=== PATIENT | female | born 1935 | race African-American/Black ===

== ENCOUNTER 2019-06-18 23:33 | Emergency (ER) | payer MEDICARE ==
[~2019-06-18] VITALS: Ht 157.5 cm; Wt 81.6 kg
--- NOTE | 2019-06-19 00:01 | PHYS DOC ---
Past Medical History Past Medical History: Diabetes-Type II, Hypertension, Renal Disease Past Surgical History: Hysterectomy Alcohol Use: None Drug Use: None Adult General Chief Complaint Chief Complaint: HYPERTENSION HPI HPI 83-year-old female presents to the emergency department with complaints of not feeling well. She has no specific complaints. Blood pressure was elevated 214/86. EMS was called for evaluation. Patient's daughter brought her to the emergency room for further evaluation. She has had sick contacts with her granddaughter recently. She denies any chest pain, shortness breath, abdominal pain, nausea, vomiting, diarrhea, fever, myalgias. She is blood pressure here is 217/86. Patient states she's not taken her home medications. Nothing makes her symptoms worse, nothing makes her symptoms better. Patient has known history of hemodialysis Friday, hypertension, diabetes. Review of Systems Review of Systems Constitutional: Denies fever or chills [] Eyes: Denies change in visual acuity, redness, or eye pain [] HENT: Denies nasal congestion or sore throat [] Respiratory: Denies cough or shortness of breath [] Cardiovascular: No additional information not addressed in HPI [] GI: Denies abdominal pain, nausea, vomiting, bloody stools or diarrhea [] : Denies dysuria or hematuria [] Musculoskeletal: Denies back pain or joint pain [] Integument: Denies rash or skin lesions [] Neurologic: Denies headache, focal weakness or sensory changes [] All other systems were reviewed and found to be within normal limits, except as documented in this note. Current Medications Current Medications Current Medications Medications (Trade) Dose Ordered Sig/Diana Start Time Stop Time Status Last Admin Dose Admin Clonidine HCl (Catapres) 0.1 mg 1X ONCE 06/19/19 00:30 06/19/19 00:32 DC 06/19/19 00:22 0.1 MG Allergies Allergies Allergies Coded Allergies Type Severity Reaction Last Updated Verified Sulfa (Sulfonamide Antibiotics) Allergy Severe "Ashkan Ubaldo's disease" 08/13/15 Yes Physical Exam Physical Exam Constitutional: Well developed, well nourished, no acute distress, non-toxic appearance. [] HENT: Normocephalic, atraumatic, bilateral external ears normal, oropharynx moist, no oral exudates, nose normal. [] Eyes: PERRLA, EOMI, conjunctiva normal, no discharge. [] Neck: Normal range of motion, no tenderness, supple, no stridor. [] Cardiovascular:Heart rate regular rhythm, no murmur [] Lungs & Thorax: Bilateral breath sounds clear to auscultation [] Abdomen: Bowel sounds normal, soft, no tenderness, no masses, no pulsatile masses. [] Skin: Warm, dry, no erythema, no rash. [] Back: No tenderness, no CVA tenderness. [] Extremities: No tenderness, no edema. [] Neurologic: Alert and oriented X 3, no focal deficits noted. [] Psychologic: Affect normal, judgement normal, mood normal. [] Current Patient Data Vital Signs Vital Signs Date Time Temp Pulse Resp B/P (MAP) Pulse Ox O2 Delivery O2 Flow Rate FiO2 06/19/19 00:22 217/86 Lab Values Laboratory Tests Test 06/19/19 00:07 Glucose (Fingerstick) 98 mg/dL (70-99) EKG EKG [] Radiology/Procedures Radiology/Procedures [] Course & Med Decision Making Course & Med Decision Making Pertinent Labs and Imaging studies reviewed. (See chart for details) []83-year-old female presents to the emergency department with complaints of not feeling well. She has no specific complaints. Blood pressure was elevated 214/86. EMS was called for evaluation. Patient's daughter brought her to the emergency room for further evaluation. She has had sick contacts with her granddaughter recently. She denies any chest pain, shortness breath, abdominal pain, nausea, vomiting, diarrhea, fever, myalgias. She has a blood pressure here is 217/86. Patient states she's not taken her home medications. Nothing makes her symptoms worse, nothing makes her symptoms better. Patient has known history of hemodialysis Friday, hypertension, diabetes. Patient declining labs, declining monitor. Clonidine 0.1 mg by mouth 1. BP recheck 164/74 Pennyon Disclaimer Dragon Disclaimer This electronic medical record was generated, in whole or in part, using a voice recognition dictation system. Departure Departure Impression: Primary Impression: Hypertension Additional Impressions: ESRD (end stage renal disease) Diabetes Disposition: HOME, SELF-CARE Condition: STABLE Referrals: SELMA PADILLA MD (PCP) Patient Instructions: Hypertension Additional Instructions: Recommend follow up with PCP 3 - 5 days Return to the ER with worsening symptoms, intractable pain, fever, altered mental status Tylenol/Motrin as needed for pain Problem Qualifiers Primary Impression: Hypertension Hypertension type: essential hypertension Qualified Codes: I10 - Essential (primary) hypertension Additional Impressions: Diabetes Diabetes mellitus type: type 2 Diabetes mellitus complication detail: with chronic kidney disease Chronic kidney disease stage: unspecified stage KAMLESH HUSTON MD Jun 19, 2019 00:01
[2019-06-19] MEDS ORDERED: cloNIDine HCL 0.1 MG TABLET PO ONE (00:30)
[2019-06-19 00:45] VITALS: BP 164/72
== END 2019-06-19 00:55 | disposition home or self-care (01) ==
LOC: ER 23:33
DX: I12.0 Hypertensive chronic kidney disease with stage 5 chronic kidney disease or end stage renal disease (principal); E11.22 Type 2 diabetes mellitus with diabetic chronic kidney disease; N18.6 End stage renal disease; Z99.2 Dependence on renal dialysis; Z90.710 Acquired absence of both cervix and uterus; Z88.2 Allergy status to sulfonamides
CPT/HCPCS: 82962; 99283

== ENCOUNTER 2019-07-04 16:55 | Emergency (ER) | payer MEDICARE ==
[~2019-07-04] VITALS: Ht 165.1 cm; Wt 81.6 kg
--- NOTE | 2019-07-04 17:35 | PHYS DOC ---
Past Medical History Past Medical History: Diabetes-Type II, Hypertension, Renal Disease (YESI PADILLA APRN) Past Surgical History: Hysterectomy, Other Additional Past Surgical Histo: RIGHT MASTECTOMY, LEFT DIALYSIS FISTULA (YESI PADILLA APRN) Alcohol Use: None Drug Use: None (YESI PADILLA APRN) Adult General Chief Complaint Chief Complaint: CHEST PAIN HPI HPI Patient is a 83 year old [f female] who presents with [chest pain. Patient reports approximately 2 hours ago she had started have some chest discomfort. States she had finished dialysis, and while there she started to feel a bit discomfort, but doesn't think to her family. Family states patient has had similar episodes to this in the past, usually right after dialysis. Patient reports her pain just feels uncomfortable, denies nausea, vomiting. Does report her PCP recently took her off Metformin because her blood sugars have been good. Reports she stopped metformin 5 days ago] (YESI PADILLA APRN) Review of Systems Review of Systems Constitutional: Denies fever or chills [] Eyes: Denies change in visual acuity, redness, or eye pain [] HENT: Denies nasal congestion or sore throat [] Respiratory: Denies cough or shortness of breath [] Cardiovascular: No additional information not addressed in HPI [] GI: Denies abdominal pain, nausea, vomiting, bloody stools or diarrhea [] : Denies dysuria or hematuria [] Musculoskeletal: Denies back pain or joint pain [] Integument: Denies rash or skin lesions [] Neurologic: Denies headache, focal weakness or sensory changes [] Endocrine: Denies polyuria or polydipsia [] All other systems were reviewed and found to be within normal limits, except as documented in this note. (YESI PADILLA APRN) Allergies Allergies Allergies Coded Allergies Type Severity Reaction Last Updated Verified Sulfa (Sulfonamide Antibiotics) Allergy Severe "Ashkan Ubaldo's disease" 08/13/15 Yes (STEPHANIE DOUGLAS MD) Physical Exam Physical Exam Constitutional: Well developed, well nourished, no acute distress, non-toxic appearance. [] HENT: Normocephalic, atraumatic, bilateral external ears normal, oropharynx moist, no oral exudates, nose normal. [] Eyes: PERRLA, EOMI, conjunctiva normal, no discharge. [] Neck: Normal range of motion, no tenderness, supple, no stridor. [] Cardiovascular:Heart rate regular rhythm, no murmur. Palpation of sternum with tendneress, no deformity, no bruising noted [] Lungs & Thorax: Bilateral breath sounds clear to auscultation [] Abdomen: Bowel sounds normal, soft, no tenderness, no masses, no pulsatile masses. [] Skin: Warm, dry, no erythema, no rash. [] Back: No tenderness, no CVA tenderness. [] Extremities: No tenderness, no cyanosis, no clubbing, ROM intact, no edema. dialysis shunt to left arm[] Neurologic: Alert and oriented X 3, normal motor function, normal sensory function, no focal deficits noted. [] Psychologic: Affect normal, judgement normal, mood normal. [] (YESI PADILLA APRN) Current Patient Data Vital Signs Vital Signs Date Time Temp Pulse Resp B/P (MAP) Pulse Ox O2 Delivery O2 Flow Rate FiO2 07/04/19 19:43 60 163/97 (119) 96 Room Air 07/04/19 17:00 98.2 14 98.2 (STEPHANIE DOUGLAS MD) Lab Values Laboratory Tests Test 07/04/19 18:35 Sodium Level 141 mmol/L (136-145) Potassium Level 4.6 mmol/L (3.5-5.1) Chloride Level 103 mmol/L (98-107) Carbon Dioxide Level 29 mmol/L (21-32) Anion Gap 9 (6-14) Blood Urea Nitrogen 18 mg/dL (7-20) Creatinine 3.1 mg/dL (0.6-1.0) H Estimated GFR (Cockcroft-Gault) 17.4 BUN/Creatinine Ratio 6 (6-20) Glucose Level 191 mg/dL (70-99) H Lactic Acid Level 1.5 mmol/L (0.4-2.0) Calcium Level 8.3 mg/dL (8.5-10.1) L Total Bilirubin 0.4 mg/dL (0.2-1.0) Aspartate Amino Transferase (AST) 16 U/L (15-37) Alanine Aminotransferase (ALT) 13 U/L (14-59) L Alkaline Phosphatase 74 U/L (46-116) Troponin I Quantitative < 0.017 ng/mL (0.000-0.055) Total Protein 6.2 g/dL (6.4-8.2) L Albumin 3.1 g/dL (3.4-5.0) L Albumin/Globulin Ratio 1.0 (1.0-1.7) Lipase 100 U/L (73-393) Laboratory Tests 07/04/19 18:35 (STEPHANIE DOUGLAS MD) Lab Values Laboratory Tests Test 07/04/19 18:35 Sodium Level 141 mmol/L (136-145) Potassium Level 4.6 mmol/L (3.5-5.1) Chloride Level 103 mmol/L (98-107) Carbon Dioxide Level 29 mmol/L (21-32) Anion Gap 9 (6-14) Blood Urea Nitrogen 18 mg/dL (7-20) Creatinine 3.1 mg/dL (0.6-1.0) H Estimated GFR (Cockcroft-Gault) 17.4 BUN/Creatinine Ratio 6 (6-20) Glucose Level 191 mg/dL (70-99) H Lactic Acid Level 1.5 mmol/L (0.4-2.0) Calcium Level 8.3 mg/dL (8.5-10.1) L Total Bilirubin 0.4 mg/dL (0.2-1.0) Aspartate Amino Transferase (AST) 16 U/L (15-37) Alanine Aminotransferase (ALT) 13 U/L (14-59) L Alkaline Phosphatase 74 U/L (46-116) Troponin I Quantitative < 0.017 ng/mL (0.000-0.055) Total Protein 6.2 g/dL (6.4-8.2) L Albumin 3.1 g/dL (3.4-5.0) L Albumin/Globulin Ratio 1.0 (1.0-1.7) Lipase 100 U/L (73-393) Laboratory Tests 07/04/19 18:35 (YESI PADILLA APRN) EKG EKG No STEMI per Dr Collier. Left axis deviation. [] (YESI PADILLA APRN) Radiology/Procedures Radiology/Procedures [] FINDINGS: A frontal view of the chest obtained. There is mild diffuse increased interstitial opacity. There is no consolidation, pleural effusion or pneumothorax. There is a prominent cardiac silhouette. IMPRESSION: Findings suggesting trace congestion. There is no consolidated infiltrate. Electronically signed by: Talita Ann MD (07/04/2019 6:24 PM) [facility] (YESI PADILLA APRN) Course & Med Decision Making Course & Med Decision Making Pertinent Labs and Imaging studies reviewed. (See chart for details) []Discussed findings with patient and family member Patient had been stuck numerous times for CBC, with hemolyzed samples. Discussed with family obtaining sample, patient states she does not want any more blood draws. Discussed pink conjunctiva and no pallor or fever in patient, little concern for elevated WBC given normal Lactic and afebrile, and decreased concern for anemia given skin color. Discussed follow up with Dr Luna for continued blood sugar management and to recheck complaints Daughter reports patient has had this exact situation several times, every time is when dialysis date gets changed as it did this week. Reports they adjust dialysis date for holiday. Patient and family in agreement with plan for discharge and follow up with Dr Luna this week.. (YESI PADILLA APRN) Course & Med Decision Making Staff Physician Addendum: I was working in the ER during the course of this patient's visit. I was available for consultation as needed, but I was not directly involved in the care of this patient. (STEPHANIE DOUGLAS MD) Dragon Disclaimer Dragon Disclaimer This electronic medical record was generated, in whole or in part, using a voice recognition dictation system. (YESI PADILLA APRN) Departure Departure Impression: Primary Impression: Chest wall pain Disposition: HOME, SELF-CARE Condition: STABLE Referrals: DELTA LUNA MD (PCP) Patient Instructions: Chest Wall Pain Additional Instructions: As discussed follow-up with Dr. Luna this week if she continues to have concerns. He may try some Tums for her discomfort when you get home. Or may give her Tylenol as he normally would. Her blood sugar today was 191. Discuss with if she wants to consider returning patient on diabetes medications, or if she is not concerned over this reading as it is non-fasting. Continue her dialysis schedule this week. YESI PADILLA APRN Jul 04, 2019 17:35 STEPHANIE DOUGLAS MD Jul 05, 2019 03:47
--- NOTE | 2019-07-04 18:27 | RAD ---
EXAM: Chest, single view. HISTORY: Chest pain. COMPARISON: None. FINDINGS: A frontal view of the chest obtained. There is mild diffuse increased interstitial opacity. There is no consolidation, pleural effusion or pneumothorax. There is a prominent cardiac silhouette. IMPRESSION: Findings suggesting trace congestion. There is no consolidated infiltrate. Electronically signed by: Talita Ann MD (07/04/2019 6:24 PM) [facility]
[2019-07-04 18:54] LABS: CALCIUM 8.3 mg/dL (8.5-10.1); CREATININE 3.1 mg/dL (0.6-1.0); GFR 17.4; POTASSIUM 4.6 mmol/L (3.5-5.1)
[2019-07-04 19:04] LABS: ALBUMIN 3.1 g/dL (3.4-5.0); TOTAL BILIRUBIN 0.4 mg/dL (0.2-1.0); TOTAL PROTEIN 6.2 g/dL (6.4-8.2)
[2019-07-04 19:43] VITALS: BP 163/97
--- NOTE | 2019-07-05 07:31 | EKG ---
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
== END 2019-07-04 20:10 | disposition home or self-care (01) ==
LOC: ER 16:55
DX: R07.89 Other chest pain (principal); N28.9 Disorder of kidney and ureter, unspecified; E11.9 Type 2 diabetes mellitus without complications; I10 Essential (primary) hypertension; Z88.2 Allergy status to sulfonamides
CPT/HCPCS: 36415; 71045; 80053; 83605; 83690; 84484; 93005; 99285

== ENCOUNTER 2019-08-05 10:10 | Outpatient (CLI) | payer MEDICARE ==
[2019-08-05] VITALS (10 sets, daily range): BP systolic 162–199; BP diastolic 66–88
[~2019-08-05] VITALS: Ht 162.6 cm; Wt 72.6 kg
[~2019-08-05 10:10] MED LIST: HYDR-2868 PO; LOSA-73 PO
[2019-08-05] MEDS ORDERED: LIDOCAINE WITH 8.4% SOD BICARB 3 ML DISP.SYRIN. ONE (10:58)
[2019-08-05] MEDS ORDERED: IOHEXOL 240 MG/ML 100 ML VIAL. ONE (10:58)
[2019-08-05] MEDS ORDERED: fentaNYL PF VIAL 100 MCG/2 ML VIAL ONE (11:19)
[2019-08-05] MEDS ORDERED: MIDAZOLAM HCL/PF 2 MG/2 ML VIAL. ONE (11:19)
[2019-08-05] MEDS ORDERED: HEPARIN for IV BOLUS 10,000 UNIT/10 ML VIAL. ONE (11:19)
[2019-08-05] MEDS ORDERED: LIDOCAINE WITH 8.4% SOD BICARB 3 ML DISP.SYRIN. IJ ONE (11:30)
[2019-08-05] MEDS ORDERED: fentaNYL PF VIAL 100 MCG/2 ML VIAL IV ONE (11:30)
[2019-08-05] MEDS ORDERED: ALTEPLASE 2 MG VIAL INT CAT ONE (11:30)
[2019-08-05] MEDS ORDERED: IOHEXOL 240 MG/ML 100 ML VIAL. IV ONE (11:30)
[2019-08-05] MEDS ORDERED: MIDAZOLAM HCL/PF 2 MG/2 ML VIAL. IV ONE (11:30)
[2019-08-05] MEDS ORDERED: HEPARIN for IV BOLUS 10,000 UNIT/10 ML VIAL. IV ONE (12:00)
--- NOTE | 2019-08-05 12:18 | PDOC ---
MODERATE SEDATION ASSESSMENT RISKS/ALTERNATIVES Risks/Alternatives Risks and alternatives of this type of sedation and procedure discussed with: RISK/ALTERNATIVES: Patient H & P ON CHART H & P H & P on chart and reviewed for co-morbid conditions and appropriate labs. H&P ON CHART: Yes STATUS PREG STATUS ASSESSED: Yes MEDS/ALLERGIES REVIEWED Meds/Allergies Reviewed Medications and Allergies including time and route of recently administered narcotics and sedatives. MEDS/ALLERGIES REVIEWED: Yes ASA RATING ASA RATING: II AIRWAY ASSESSMENT Airway Assessment Airway patency, oral function limitations, presence of caps, crowns, dentures, partials, and ability to extend neck assessed. AIRWAY ASSESSMENT: Yes MALLAMPATI SCORE MALLAMPATI SCORE: II PRE-SEDATION ASSESSMENT PRE-SEDATION ASSESSMENT: Yes YESI GAONA MD Aug 05, 2019 12:18
--- NOTE | 2019-08-05 12:20 | PDOC ---
BRIEF OPERATIVE NOTE Pre-Op Diagnosis CRF Post-Op Diagnosis same Procedure Performed left arm av shunt declot and angioplasty Surgeon Pritesh Anesthesia Type: Conscious Sedation Findings Thrombosed graft, venous outflow stenosis improved s/p thrombolysis and angioplasty Complications No immediate YESI GAONA MD Aug 05, 2019 12:20
--- NOTE | 2019-08-05 12:21 | PDOC1 ---
History and Physical Date of Procedure Date of Admission History of Present Illness Reason for Visit clotted shunt Past Medical History Past Medical History see nursing pre-op assessment Current Medications Current Medications Current Medications Iohexol (Omnipaque 240 Mg/ml) 100 ml STK-MED ONCE .ROUTE ; Start 08/05/19 at 10:58; Stop 08/05/19 at 10:58; Status DC Lidocaine HCl (Buffered Lidocaine 1%) 3 ml STK-MED ONCE .ROUTE ; Start 08/05/19 at 10:58; Stop 08/05/19 at 10:58; Status DC Heparin Sodium/ Sodium Chloride 500 ml @ As Directed STK-MED ONCE .ROUTE ; Start 08/05/19 at 10:58; Stop 08/05/19 at 10:59; Status DC Midazolam HCl (Versed) 2 mg STK-MED ONCE .ROUTE ; Start 08/05/19 at 11:19; Stop 08/05/19 at 11:19; Status DC Fentanyl Citrate (Fentanyl 2ml Vial) 100 mcg STK-MED ONCE .ROUTE ; Start 08/05/19 at 11:19; Stop 08/05/19 at 11:19; Status DC Heparin Sodium (Porcine) (Heparin Sodium) 10,000 unit STK-MED ONCE .ROUTE ; Start 08/05/19 at 11:19; Stop 08/05/19 at 11:19; Status DC Alteplase, Recombinant (Cathflo) 6 mg 1X ONCE INT CAT Last administered on 08/05/19at 12:08; Start 08/05/19 at 11:30; Stop 08/05/19 at 11:31; Status DC Heparin Sodium/ Sodium Chloride (HEPARIN for ARTERIAL LINE FLUSH) 1,000 unit 1X ONCE IART Last administered on 08/05/19at 12:07; Start 08/05/19 at 11:30; Stop 08/05/19 at 11:31; Status DC Lidocaine HCl (Buffered Lidocaine 1%) 3 ml 1X ONCE IJ Last administered on 08/05/19at 12:08; Start 08/05/19 at 11:30; Stop 08/05/19 at 11:31; Status DC Midazolam HCl (Versed) 2 mg 1X ONCE IV Last administered on 08/05/19at 12:08; Start 08/05/19 at 11:30; Stop 08/05/19 at 11:31; Status DC Fentanyl Citrate (Fentanyl 2ml Vial) 100 mcg 1X ONCE IV Last administered on 08/05/19at 12:09; Start 08/05/19 at 11:30; Stop 08/05/19 at 11:31; Status DC Iohexol (Omnipaque 240 Mg/ml) 100 ml 1X ONCE IV Last administered on 08/05/19at 12:15; Start 08/05/19 at 11:30; Stop 08/05/19 at 11:31; Status DC Heparin Sodium (Porcine) (Heparin Sodium) 5,000 unit 1X ONCE IV Last administered on 08/05/19at 12:09; Start 08/05/19 at 12:00; Stop 08/05/19 at 12:01; Status DC Active Scripts Active Reported Losartan Potassium 50 Mg Tablet 25 Mg PO BID Hydralazine Hcl 25 Mg Tablet 1 Tab PO BID Allergies Allergies: Coded Allergies: Sulfa (Sulfonamide Antibiotics) (Verified Allergy, Severe, "Ashkan Ubaldo's disease", 08/13/15) Physical Exam Vital Signs Vital Signs Date Time Temp Pulse Resp B/P (MAP) Pulse Ox O2 Delivery O2 Flow Rate FiO2 08/05/19 12:09 14 99 Nasal Cannula 2.0 08/05/19 10:30 98.1 70 177/88 (117) 98.1 Other see nursing pre-op assessment Assessment Assessment clotted AV shunt Plan Plan shuntogram with YESI Deng MD Aug 05, 2019 12:21
--- NOTE | 2019-08-05 14:25 | NUR ---
Dr. Jonas notified of blood pressure via telephone, advised to have patient follow up with referring physician upon discharge.
--- NOTE | 2019-08-05 14:59 | NUR ---
Discharge Note: JR PAN Discharge instructions and discharge home medications reviewed with patient and daughter and a copy given. All questions have been answered and understanding verbalized. Patient ate lunch without any difficulties. The following instructions and handouts were given: moderate sedation and dialysis shunt malfunction. Discontinued lines and drains: right AC PIV, dressing clean dry intact. Patient discharged to home with daughter, Vanessa, via wheelchair to private vehicle.
--- NOTE | 2019-08-05 16:20 | RAD ---
Procedure: Left upper extremity shuntogram, shunt thrombolysis, and angioplasty x2 Clinical Indication: 83-year-old female with thrombosed left upper extremity AV shunt, history of multiple prior interventions, with a venous outflow stent. Sedation: Conscious sedation was administered with a total intraprocedural [id number] time of 53 minutes. The patient was monitored by a qualified independent observer throughout the time of sedation. Please refer to the medical record for exact doses of medications utilized to achieve moderate sedation. Antibiotics: None Exposure: Kerma-Area Product: 6 Gycm2 Sterility: All elements of maximal sterile barrier technique including the use of a cap, mask, sterile gown, sterile gloves, large sterile sheet, appropriate hand hygiene, and 2% chlorhexidine for cutaneous antisepsis (or acceptable alternative antiseptic per current guidelines) were followed for this procedure. Consent: The procedure was explained in its entirety to the patient or the patients designated hardware supplies sales representative by a member of the treatment team, including a discussion of the risks, benefits and commonly accepted alternatives to the procedure, as well as the expected consequences of no therapy whatsoever. Discussion of the risks included, but was not limited to, those that are most frequent and those that are rare but possibly severe or life-threatening, as well as the possibility of unforeseen complications. Technique and Findings: Following informed consent, the patient was prepped and draped in usual sterile fashion. Ultrasound interrogation left arm revealed a thrombosed shunt. Hardcopy ultrasound was recorded. 1% lidocaine was used to achieve local anesthesia. A 21-gauge micropuncture needle was used to gain access to the shunt in antegrade fashion. A 5 Marshallese sidehole catheter was advanced through the thrombosed shunt and 6 mg of TPA was infused through the side hole catheter over 10 minutes. This catheter was then exchanged over wire for 6 Marshallese sheath. An angled catheter was advanced over the wire into the shunt and negotiated distal to the venous anastomosis. Contrast venography was then performed. The veins distal to the anastomosis are free of thrombus and there is no central stenosis. There is a 5 cm tapered stenosis of the proximal venous outflow extending from the distal margin of the stent centrally. A 6 mm x 40 mm angioplasty balloon was then used to angioplasty the stent as well as certain portions of the venous shunt. Completion venogram demonstrated moderate amount of residual thrombus with congregational of patency. A 7 mm x 80 mm angioplasty balloon was then used to angioplasty the upper [place] outflow vein distal to the stent, as well as the stent itself. Completion venogram demonstrated improved appearance with only mild residual persistent narrowing. A second area of the shunt was then anesthetized with 1% lidocaine and a second needle was used to gain access to the shunt in a retrograde fashion. An angled catheter was advanced across the arterial anastomosis into the upper matt[place] artery and contrast angiography was performed demonstrating a short 3 segment occlusion near the arterial anastomosis. A 4 mm x 20 mm angioplasty balloon was then inflated and pulled through the arterial last doses to dislodge the plug, and thereby restore antegrade flow to the shunt. A completion angiogram demonstrated a persistent moderate focal stenosis of the proximal shunt. A pursestring suture was applied to the sheath within the proximal portion of the shunt, and the sheath was removed and hemostasis was achieved with manual compression. A 6 mm x 40 mm angioplasty balloon was then advanced in a retrograde fashion through the existing sheath access to the moderate stenosis of the proximal shunt, and angioplasty was performed for 3 minutes. The balloon was deflated and repeat angiogram demonstrated improved angiographic appearance with congregational of brisk flow through the entirety of the circuit, with only mild multifocal irregularities remaining. The remaining sheath was then removed is a pursestring suture was applied and hemostasis was achieved with manual compression. Complications: No immediate Impression: 1. Thrombosed AV graft, with flow restored following thrombolysis. 2. Venous outflow stenosis improved following 7 mm balloon angioplasty. 3. Moderate proximal shunt stenosis, roughly 3 cm from the arterial anastomosis, also improved following balloon angioplasty to 6 mm.
== END 2019-08-05 15:20 | disposition home or self-care (01) ==
LOC: INTRAD 10:10
PROVIDERS: ATTEND Internal Medicine Nephrology
DX: T82.868A Thrombosis due to vascular prosthetic devices, implants and grafts, initial encounter (principal); Y83.8 Other surgical procedures as the cause of abnormal reaction of the patient, or of later complication, without mention of misadventure at the time of the procedure; Y92.89 Other specified places as the place of occurrence of the external cause
CPT/HCPCS: 36902; 76937; 99152; 99153; A4215; C1725; C1757; C1769; C1892; C1894; J1644; J2250; J2997; J3010; Q9966

== ENCOUNTER 2020-01-03 13:11 | Inpatient (IN) | payer MEDICARE ==
[~2020-01-03] VITALS: Ht 162.6 cm; Wt 71.4 kg
[2020-01-03 14:38] LABS: BASO # 0.1 x10^3/uL (0.0-0.2); BASO % 1 % (0-3); EOS % 1 % (0-3); HEMATOCRIT 36.7 % (36.0-47.0); HEMOGLOBIN 11.5 g/dL (12.0-15.5); LYMPH # 0.8 x10^3/uL (1.0-4.8); LYMPH % 17 % (24-48); MEAN CORPUSCULAR HEMOGLOBIN 28 pg (25-35); MEAN CORPUSCULAR HGB CONC 32 g/dL (31-37); MEAN CORPUSCULAR VOLUME 89 fL (79-100); MONO # 0.5 x10^3/uL (0.0-1.1); MONO % 11 % (0-9); NEUT # 3.5 x10^3/uL (1.8-7.7); NEUT % 70 % (31-73); PLATELET COUNT 305 x10^3/uL (140-400); RED BLOOD COUNT 4.14 x10^6/uL (3.50-5.40); RED CELL DISTRIBUTION WIDTH 18.4 % (11.5-14.5)
[2020-01-03 14:52] LABS: ALBUMIN 3.6 g/dL (3.4-5.0); CALCIUM 7.1 mg/dL (8.5-10.1); CREATININE 7.9 mg/dL (0.6-1.0); GFR 5.9; MAGNESIUM 2.7 mg/dL (1.8-2.4); TOTAL BILIRUBIN 0.4 mg/dL (0.2-1.0); TOTAL PROTEIN 7.1 g/dL (6.4-8.2)
[2020-01-03 14:54] LABS: POTASSIUM 6.9 mmol/L (3.5-5.1)
[2020-01-03] MEDS ORDERED: CALCIUM GLUCONATE 1,000 MG/10 ML VIAL. IVP ONE (15:00)
[2020-01-03] MEDS ORDERED: DEXTROSE 50% 25 GM / 50ML DISP.SYRIN. IV ONE (15:15)
[2020-01-03] MEDS ORDERED: INSULIN REGULAR 100 UNIT/ML 3ML VIAL. IV ONE (15:15)
--- NOTE | 2020-01-03 15:21 | PHYS DOC ---
Past Medical History Past Medical History: Diabetes-Type II, Hypertension, Renal Disease Past Surgical History: Hysterectomy, Other Additional Past Surgical Histo: RIGHT MASTECTOMY, LEFT DIALYSIS FISTULA Smoking Status: Former Smoker Alcohol Use: None Drug Use: None General Adult EDM: Chief Complaint: OTHER COMPLAINTS HPI: HPI: Patient is a 84 year old female who was brought here by her family for possible elevated potassium level. Patient has end-stage renal failure, had hemodialysis every Friday, Friday, Friday. Her last dialysis was on Friday. Over the weekend patient has been eating a bunch of baking soda and then ate a bunch of banana as well. Patient is scheduled to have dialysis today however she did not want to go. Patient's daughter is concerned that her potassium level is elevated. So she called her family doctor who told her bring her mom here for evaluation. Patient had dementia, she denies that she eating a banana or drinking any baking soda.. Patient denies any chest pain, no abdominal pain, no headache. Patient denies any nausea or vomiting, denies any trouble breathing. Review of Systems: Review of Systems: Constitutional: Denies fever or chills. [] Eyes: Denies change in visual acuity. [] HENT: Denies nasal congestion or sore throat. [] Respiratory: Denies cough or shortness of breath. [] Cardiovascular: Denies chest pain or edema. [] GI: Denies abdominal pain, nausea, vomiting, bloody stools or diarrhea. [] : Denies dysuria. [] Musculoskeletal: Denies back pain or joint pain. [] Integument: Denies rash. [] Neurologic: Denies headache, focal weakness or sensory changes. [] Endocrine: Denies polyuria or polydipsia. [] Lymphatic: Denies swollen glands. [] Psychiatric: Denies depression or anxiety. [] Heart Score: Risk Factors: Risk Factors: DM, Current or recent (<one month) smoker, HTN, HLP, family history of CAD, obesity. Risk Scores: Score 0 - 3: 2.5% MACE over next 6 weeks - Discharge Home Score 4 - 6: 20.3% MACE over next 6 weeks - Admit for Clinical Observation Score 7 - 10: 72.7% MACE over next 6 weeks - Early Invasive Strategies Current Medications: Current Medications Medications (Trade) Dose Ordered Sig/Diana Start Time Stop Time Status Last Admin Dose Admin Calcium Gluconate (Calcium Gluconate) 1,000 mg 1X ONCE 01/03/20 15:00 01/03/20 15:01 DC Dextrose (Dextrose 50%-Water Syringe) 25 gm 1X ONCE 01/03/20 15:15 01/03/20 15:16 Insulin Human Regular (HumuLIN R VIAL) 10 unit 1X ONCE 01/03/20 15:15 01/03/20 15:16 Allergies: Allergies: Allergies Coded Allergies Type Severity Reaction Last Updated Verified Sulfa (Sulfonamide Antibiotics) Allergy Severe "Ashkan Ubaldo's disease" 08/13/15 Yes Physical Exam: PE: Constitutional: Well developed, well nourished, no acute distress, non-toxic tatum earance. [] HENT: Normocephalic, atraumatic, bilateral external ears normal, oropharynx moist, no oral exudates, nose normal. [] Eyes: PERRLA, EOMI, conjunctiva normal, no discharge. [] Neck: Normal range of motion, no tenderness, supple, no stridor. [] Cardiovascular:Heart rate regular rhythm, no murmur [] Lungs & Thorax: Bilateral breath sounds clear to auscultation [] Abdomen: Bowel sounds normal, soft, no tenderness, no masses, no pulsatile masses. [] Skin: Warm, dry, no erythema, no rash. [] Back: No tenderness, no CVA tenderness. [] Extremities: No tenderness, no cyanosis, no clubbing, ROM intact, no edema. [] Neurologic: Alert and oriented X 3, normal motor function, normal sensory function, no focal deficits noted. [] Psychologic: Affect normal, judgement normal, mood normal. [] Current Patient Data: Labs: Laboratory Tests Test 01/03/20 14:30 White Blood Count 5.0 x10^3/uL (4.0-11.0) Red Blood Count 4.14 x10^6/uL (3.50-5.40) Hemoglobin 11.5 g/dL (12.0-15.5) L Hematocrit 36.7 % (36.0-47.0) Mean Corpuscular Volume 89 fL (79-100) Mean Corpuscular Hemoglobin 28 pg (25-35) Mean Corpuscular Hemoglobin Concent 32 g/dL (31-37) Red Cell Distribution Width 18.4 % (11.5-14.5) H Platelet Count 305 x10^3/uL (140-400) Neutrophils (%) (Auto) 70 % (31-73) Lymphocytes (%) (Auto) 17 % (24-48) L Monocytes (%) (Auto) 11 % (0-9) H Eosinophils (%) (Auto) 1 % (0-3) Basophils (%) (Auto) 1 % (0-3) Neutrophils # (Auto) 3.5 x10^3/uL (1.8-7.7) Lymphocytes # (Auto) 0.8 x10^3/uL (1.0-4.8) L Monocytes # (Auto) 0.5 x10^3/uL (0.0-1.1) Eosinophils # (Auto) 0.0 x10^3/uL (0.0-0.7) Basophils # (Auto) 0.1 x10^3/uL (0.0-0.2) Sodium Level 139 mmol/L (136-145) Potassium Level 6.9 mmol/L (3.5-5.1) *H Chloride Level 102 mmol/L (98-107) Carbon Dioxide Level 26 mmol/L (21-32) Anion Gap 11 (6-14) Blood Urea Nitrogen 63 mg/dL (7-20) H Creatinine 7.9 mg/dL (0.6-1.0) H Estimated GFR (Cockcroft-Gault) 5.9 BUN/Creatinine Ratio 8 (6-20) Glucose Level 128 mg/dL (70-99) H Calcium Level 7.1 mg/dL (8.5-10.1) L Magnesium Level 2.7 mg/dL (1.8-2.4) H Total Bilirubin 0.4 mg/dL (0.2-1.0) Aspartate Amino Transferase (AST) 127 U/L (15-37) H Alanine Aminotransferase (ALT) 104 U/L (14-59) H Alkaline Phosphatase 130 U/L (46-116) H Total Protein 7.1 g/dL (6.4-8.2) Albumin 3.6 g/dL (3.4-5.0) Albumin/Globulin Ratio 1.0 (1.0-1.7) Laboratory Tests 01/03/20 14:30 Laboratory Tests 01/03/20 14:30 Vital Signs: Vital Signs Date Time Temp Pulse Resp B/P (MAP) Pulse Ox O2 Delivery O2 Flow Rate FiO2 01/03/20 14:11 97.9 47 16 206/75 (118) 99 Room Air 97.9 EKG: EKG: [] Radiology/Procedures: Radiology/Procedures: [] Course & Med Decision Making: Course & Med Decision Making Pertinent Labs and Imaging studies reviewed. (See chart for details) Patient is an 84-year-old female who has end-stage renal failure, she did not have her dialysis today. Patient'S blood pressure is elevated. Patient'S potassium level at 6.9, her calcium level 7.1. Patient needs urgent hemodialysis today. Discussed with liver trimmer on-call Dr. JUSTICE who agreed TO dialyze her today. Patient was given 1 g of calcium chloride, 1 AMPULE OF D50 IV, 10 units regular insulin IV. Dragon Disclaimer: Dragon Disclaimer: This electronic medical record was generated, in whole or in part, using a voice recognition dictation system. Departure Departure Impression: Primary Impression: Hyperkalemia Additional Impressions: End stage kidney disease Hypocalcemia Hypertension Disposition: ADMITTED INPATIENT Admitting Physician: JUAN (DR. GAN) Condition: STABLE Referrals: DELTA RIZVI MD (PCP) SO ESTRELLA DO January 03, 2020 15:21
[2020-01-03] MEDS ORDERED: hydrALAZINE 20 MG/ML VIAL. IVP ONE (15:45)
[2020-01-03] MEDS ORDERED: SODIUM BICARB ADULT 8.4% 50 MEQ/50 ML DISP.SYRIN. IV ONE (16:15)
[2020-01-03] MEDS ORDERED: IV NORMAL SALINE 1000ML BAG 1,000 ML IV PRN ×2 (17:46)
[2020-01-03] MEDS ORDERED: diphenhydrAMINE 50 MG/ML VIAL IV PRN ×2 (18:00)
[2020-01-03] MEDS ORDERED: DIALYSIS PATIENT. MC PRN (18:00)
[2020-01-03] MEDS ORDERED: ACETAMINOPHEN 500 MG TABLET PO PRN (18:00)
[2020-01-03] MEDS ORDERED: ZIPR20CA3 PO (21:13)
[2020-01-03 21:25] VITALS: BP 167/69
[2020-01-03] MEDS: LOSARTAN POTASSIUM 25 MG TABLET. PO SCH (22:50)
[2020-01-03] MEDS: hydrALAZINE 25 MG TABLET PO SCH (22:50)
[2020-01-03] MEDS ORDERED: ZIPRASIDONE 20 MG CAPSULE PO SCH (23:00)
[2020-01-03 23:10] VITALS: BP 127/61
[2020-01-04 03:58] VITALS: BP 148/48
[2020-01-04 05:19] LABS: BASO % 1 % (0-3); EOS # 0.1 x10^3/uL (0.0-0.7); EOS % 1 % (0-3); HEMATOCRIT 32.5 % (36.0-47.0); HEMOGLOBIN 10.4 g/dL (12.0-15.5); LYMPH # 0.7 x10^3/uL (1.0-4.8); LYMPH % 18 % (24-48); MEAN CORPUSCULAR HEMOGLOBIN 28 pg (25-35); MEAN CORPUSCULAR HGB CONC 32 g/dL (31-37); MEAN CORPUSCULAR VOLUME 87 fL (79-100); MONO # 0.5 x10^3/uL (0.0-1.1); MONO % 13 % (0-9); NEUT # 2.5 x10^3/uL (1.8-7.7); NEUT % 67 % (31-73); PLATELET COUNT 235 x10^3/uL (140-400); RED BLOOD COUNT 3.73 x10^6/uL (3.50-5.40); RED CELL DISTRIBUTION WIDTH 18.1 % (11.5-14.5); WHITE BLOOD COUNT 3.8 x10^3/uL (4.0-11.0)
[2020-01-04 06:09] LABS: ALBUMIN 2.9 g/dL (3.4-5.0); CALCIUM 7.5 mg/dL (8.5-10.1); CREATININE 4.8 mg/dL (0.6-1.0); GFR 10.5; TOTAL BILIRUBIN 0.4 mg/dL (0.2-1.0); TOTAL PROTEIN 5.9 g/dL (6.4-8.2)
[2020-01-04 07:15] VITALS: BP 143/63
--- NOTE | 2020-01-04 09:48 | PDOC1 ---
History and Physical Date of Admission Date of Admission DATE: 01/04/20 TIME: 09:44 Identification/Chief Complaint Chief Complaint Elevated potassium Source Source: Chart review, Patient History of Present Illness History of Present Illness Ms Michelle is an 84yo F w/ PMHx dementia, Diabetes-Type II, Hypertension, ESRD on HD on MWF who was brought here by her family for possible elevated potassium level. Last dialysis was on Friday. Over the weekend patient has been eating a bunch of baking soda and then ate a bunch of bananas as well. She was scheduled to have dialysis 01/02 however she did not want to go and her daughter called her family doctor who told her bring her mom to ED. Patient denies any chest pain, no abdominal pain, no headache. Patient denies any nausea or vomiting, denies any trouble breathing. Noted with K6.9, NA 139, BUN 63, CR 7.9, AST 127, ALT 104, alkaline phosphatase 130, albumin 2.9, WBC 3.8, Hb 11.5, platelets 305. EKG - Given 1g calcium gluconate, insulin and D50 and called for urgent dialysis treatment, which she had on 01/03/2020. Seen on 01/04/2020 in the morning, much improved. Past Medical History Cardiovascular: HTN Heme/Onc: Anemia NOS Renal/: Chronic renal insuff Past Surgical History Past Surgical History: Other Family History Family History: Hypertension Social History ALCOHOL: none Drugs: None Current Problem List Problem List Problems Medical Problems: (1) End stage kidney disease Status: Acute (2) Hyperkalemia Status: Acute (3) Hypertension Status: Acute (4) Hypocalcemia Status: Acute Current Medications Current Medications Current Medications Calcium Gluconate (Calcium Gluconate) 1,000 mg 1X ONCE IVP Last administered on 01/03/20 15:45; Start 01/03/20 at 15:00; Stop 01/03/20 at 15:01; Status DC Dextrose (Dextrose 50%-Water Syringe) 25 gm 1X ONCE IV Last administered on 01/03/20at 15:44; Start 01/03/20 at 15:15; Stop 01/03/20 at 15:16; Status DC Insulin Human Regular (HumuLIN R VIAL) 10 unit 1X ONCE IV Last administered on 01/03/20at 15:46; Start 01/03/20 at 15:15; Stop 01/03/20 at 15:16; Status DC Hydralazine HCl (Apresoline Inj) 10 mg 1X ONCE IVP ; Start 01/03/20 at 15:45; Stop 01/03/20 at 15:46; Status DC Sodium Bicarbonate (Sodium Bicarb Adult 8.4% Syr) 50 meq 1X ONCE IV ; Start 01/03/20 at 16:15; Stop 01/03/20 at 16:16; Status DC Sodium Chloride 1,000 ml @ 1,000 mls/hr Q1H PRN IV hypotension; Start 01/03/20 at 17:46; Stop 01/03/20 at 23:45; Status DC Acetaminophen (Tylenol) 500 mg 1X PRN PRN PO MILD PAIN / TEMP > 100.3'F; Start 01/03/20 at 18:00; Stop 01/04/20 at 17:59 Diphenhydramine HCl (Benadryl) 25 mg 1X PRN PRN IV ITCHING; Start 01/03/20 at 18:00; Stop 01/04/20 at 17:59 Diphenhydramine HCl (Benadryl) 25 mg 1X PRN PRN IV ITCHING; Start 01/03/20 at 18:00; Stop 01/04/20 at 17:59 Sodium Chloride 1,000 ml @ 400 mls/hr Q2H30M PRN IV PATENCY; Start 01/03/20 at 17:46; Stop 01/04/20 at 05:45; Status DC Info (PHARMACY MONITORING -- do not chart) 1 each PRN DAILY PRN MC SEE COMMENTS; Start 01/03/20 at 18:00 Hydralazine HCl (Apresoline) 25 mg BID PO Last administered on 01/03/20at 22:50; Start 01/03/20 at 23:00 Losartan Potassium (Cozaar) 25 mg BID PO Last administered on 01/03/20at 22:50; Start 01/03/20 at 23:00 Ziprasidone (Geodon) 20 mg HS PO Last administered on 01/03/20at 22:49; Start 01/03/20 at 23:00 Active Scripts Active Reported Ziprasidone Hcl 20 Mg Capsule 20 Mg PO HS Losartan Potassium 50 Mg Tablet 25 Mg PO BID Hydralazine Hcl 25 Mg Tablet 1 Tab PO BID Allergies Allergies: Coded Allergies: Sulfa (Sulfonamide Antibiotics) (Verified Allergy, Severe, "Ashkna Ubaldo's disease", 08/13/15) ROS General: No: Chills, Night Sweats, Fatigue, Malaise, Appetite, Other PSYCHOLOGICAL ROS: No: Anxiety, Behavioral Disorder, Concentration difficultie, Decreased libido, Depression, Disorientation, Hallucinations, Hostility, Irritablity, Memory difficulties, Mood Swings, Obsessive thoughts, Physical abuse, Sexual abuse, Sleep disturbances, Suicidal ideation, Other Eyes: No Blurry vision, No Decreased vision, No Double vision, No Dry eyes, No Excessive tearing, No Eye Pain, No Itchy Eyes, No Loss of vision, No Photophobia, No Scotomata, No Uses contacts, No Uses glasses, No Other HEENT: No: Heacaches, Visual Changes, Hearing change, Nasal congestion, Nasal discharge, Oral lesions, Sinus pain, Sore Throat, Epistaxis, Sneezing, Snoring, Tinnitus, Vertigo, Vocal changes, Other ALLERGY AND IMMUNOLOGY: No: Hives, Insect Bite Sensitivity, Itchy/Watery Eyes, Nasal Congestion, Post Nasal Drip, Seasonal Allergies, Other Hematological and Lymphatic: No: Bleeding Problems, Blood Clots, Blood Transfusions, Brusing, Night Sweats, Pallor, Swollen Lymph Nodes, Other ENDOCRINE: No: Breast Changes, Galactorrhea, Hair Pattern Changes, Hot Flashes, Malaise/lethargy, Mood Swings, Palpitations, Polydipsia/polyuria, Skin Changes, Temperature Intolerance, Unexpected Weight Changes, Other Breast: No New/Changing Breast Lumps, No Nipple changes, No Nipple discharge, N o Other Respiratory: No: Cough, Hemoptysis, Orthopnea, Pleuritic Pain, Shortness of breath, SOB with excertion, Sputum Changes, Stridor, Tachypnea, Wheezing, Other Cardiovascular: No Chest Pain, No Palpitations, No Orthopnea, No Paroxysmal Noc. Dyspnea, No Edema, No Lt Headedness, No Other Gastrointestinal: No Nausea, No Vomiting, No Abdominal Pain, No Diarrhea, No Constipation, No Melena, No Hematochezia, No Other Genitourinary: No Dysuria, No Frequency, No Incontinence, No Hematuria, No Retention, No Discharge, No Urgency, No Pain, No Flank Pain, No Other, No , No , No , No , No , No , No Musculoskeletal: No Gait Disturbance, No Joint Pain, No Joint Stiffness, No Joint Swelling, No Muscle Pain, No Muscular Weakness, No Pain In:, No Swelling In:, No Other Neurological: No Behavorial Changes, No Bowel/Bladder ControlChng, No Confusion, No Dizziness, No Gait Disturbance, No Headaches, No Impaired Coord/balance, No Memory Loss, No Numbness/Tingling, No Seizures, No Speech Problems, No Tremors, No Visual Changes, No Weakness, No Other Skin: No Dry Skin, No Eczema, No Hair Changes, No Lumps, No Mole Changes, No Mottling, No Nail Changes, No Pruritus, No Rash, No Skin Lesion Changes, No Other, No Acne Physical Exam General: Alert, Cooperative, No acute distress HEENT: Atraumatic, PERRLA, EOMI, Mucous membr. moist/pink Lungs: Clear to auscultation, Normal air movement Heart: S1S2, RRR, no thrills, no rubs, no gallops, no murmurs Abdomen: Normal bowel sounds, Soft, No tenderness, No hepatosplenomegaly, No masses Rectal Exam: not examined Extremities: No clubbing, No cyanosis, No edema, Normal pulses, No tenderness/swelling Skin: No rashes, No breakdown, No significant lesion Neuro: Normal gait, Normal speech, Strength at 5/5 X4 ext, Normal tone, Sensation intact, Cranial nerves 3-12 NL, Reflexes 2+ Psych/Mental Status: Mental status NL, Mood NL Vitals Vitals Vital Signs Date Time Temp Pulse Resp B/P (MAP) Pulse Ox O2 Delivery O2 Flow Rate FiO2 01/04/20 07:15 98.3 71 143/63 (89) 96 Room Air 98.3 01/04/20 03:58 16 Labs Labs Laboratory Tests Test 01/03/20 14:30 01/03/20 16:50 01/03/20 20:37 01/04/20 03:49 White Blood Count 5.0 x10^3/uL (4.0-11.0) 3.8 x10^3/uL (4.0-11.0) Red Blood Count 4.14 x10^6/uL (3.50-5.40) 3.73 x10^6/uL (3.50-5.40) Hemoglobin 11.5 g/dL (12.0-15.5) 10.4 g/dL (12.0-15.5) Hematocrit 36.7 % (36.0-47.0) 32.5 % (36.0-47.0) Mean Corpuscular Volume 89 fL (79-100) 87 fL (79-100) Mean Corpuscular Hemoglobin 28 pg (25-35) 28 pg (25-35) Mean Corpuscular Hemoglobin Concent 32 g/dL (31-37) 32 g/dL (31-37) Red Cell Distribution Width 18.4 % (11.5-14.5) 18.1 % (11.5-14.5) Platelet Count 305 x10^3/uL (140-400) 235 x10^3/uL (140-400) Neutrophils (%) (Auto) 70 % (31-73) 67 % (31-73) Lymphocytes (%) (Auto) 17 % (24-48) 18 % (24-48) Monocytes (%) (Auto) 11 % (0-9) 13 % (0-9) Eosinophils (%) (Auto) 1 % (0-3) 1 % (0-3) Basophils (%) (Auto) 1 % (0-3) 1 % (0-3) Neutrophils # (Auto) 3.5 x10^3/uL (1.8-7.7) 2.5 x10^3/uL (1.8-7.7) Lymphocytes # (Auto) 0.8 x10^3/uL (1.0-4.8) 0.7 x10^3/uL (1.0-4.8) Monocytes # (Auto) 0.5 x10^3/uL (0.0-1.1) 0.5 x10^3/uL (0.0-1.1) Eosinophils # (Auto) 0.0 x10^3/uL (0.0-0.7) 0.1 x10^3/uL (0.0-0.7) Basophils # (Auto) 0.1 x10^3/uL (0.0-0.2) 0.0 x10^3/uL (0.0-0.2) Sodium Level 139 mmol/L (136-145) 138 mmol/L (136-145) Potassium Level 6.9 mmol/L (3.5-5.1) 5.0 mmol/L (3.5-5.1) Chloride Level 102 mmol/L (98-107) 101 mmol/L (98-107) Carbon Dioxide Level 26 mmol/L (21-32) 30 mmol/L (21-32) Anion Gap 11 (6-14) 7 (6-14) Blood Urea Nitrogen 63 mg/dL (7-20) 30 mg/dL (7-20) Creatinine 7.9 mg/dL (0.6-1.0) 4.8 mg/dL (0.6-1.0) Estimated GFR (Cockcroft-Gault) 5.9 10.5 BUN/Creatinine Ratio 8 (6-20) 6 (6-20) Glucose Level 128 mg/dL (70-99) 128 mg/dL (70-99) Calcium Level 7.1 mg/dL (8.5-10.1) 7.5 mg/dL (8.5-10.1) Magnesium Level 2.7 mg/dL (1.8-2.4) Total Bilirubin 0.4 mg/dL (0.2-1.0) 0.4 mg/dL (0.2-1.0) Aspartate Amino Transf (AST/SGOT) 127 U/L (15-37) 55 U/L (15-37) Alanine Aminotransferase (ALT/SGPT) 104 U/L (14-59) 75 U/L (14-59) Alkaline Phosphatase 130 U/L (46-116) 110 U/L (46-116) Total Protein 7.1 g/dL (6.4-8.2) 5.9 g/dL (6.4-8.2) Albumin 3.6 g/dL (3.4-5.0) 2.9 g/dL (3.4-5.0) Albumin/Globulin Ratio 1.0 (1.0-1.7) 1.0 (1.0-1.7) Hepatitis B Surface Antigen Nonreactive (Nonreactive) Hepatitis B Surface Antibody Nonreactive Glucose (Fingerstick) 88 mg/dL (70-99) Laboratory Tests Test 01/03/20 14:30 01/03/20 16:50 01/03/20 20:37 01/04/20 03:49 White Blood Count 5.0 x10^3/uL (4.0-11.0) 3.8 x10^3/uL (4.0-11.0) Red Blood Count 4.14 x10^6/uL (3.50-5.40) 3.73 x10^6/uL (3.50-5.40) Hemoglobin 11.5 g/dL (12.0-15.5) 10.4 g/dL (12.0-15.5) Hematocrit 36.7 % (36.0-47.0) 32.5 % (36.0-47.0) Mean Corpuscular Volume 89 fL (79-100) 87 fL (79-100) Mean Corpuscular Hemoglobin 28 pg (25-35) 28 pg (25-35) Mean Corpuscular Hemoglobin Concent 32 g/dL (31-37) 32 g/dL (31-37) Red Cell Distribution Width 18.4 % (11.5-14.5) 18.1 % (11.5-14.5) Platelet Count 305 x10^3/uL (140-400) 235 x10^3/uL (140-400) Neutrophils (%) (Auto) 70 % (31-73) 67 % (31-73) Lymphocytes (%) (Auto) 17 % (24-48) 18 % (24-48) Monocytes (%) (Auto) 11 % (0-9) 13 % (0-9) Eosinophils (%) (Auto) 1 % (0-3) 1 % (0-3) Basophils (%) (Auto) 1 % (0-3) 1 % (0-3) Neutrophils # (Auto) 3.5 x10^3/uL (1.8-7.7) 2.5 x10^3/uL (1.8-7.7) Lymphocytes # (Auto) 0.8 x10^3/uL (1.0-4.8) 0.7 x10^3/uL (1.0-4.8) Monocytes # (Auto) 0.5 x10^3/uL (0.0-1.1) 0.5 x10^3/uL (0.0-1.1) Eosinophils # (Auto) 0.0 x10^3/uL (0.0-0.7) 0.1 x10^3/uL (0.0-0.7) Basophils # (Auto) 0.1 x10^3/uL (0.0-0.2) 0.0 x10^3/uL (0.0-0.2) Sodium Level 139 mmol/L (136-145) 138 mmol/L (136-145) Potassium Level 6.9 mmol/L (3.5-5.1) 5.0 mmol/L (3.5-5.1) Chloride Level 102 mmol/L (98-107) 101 mmol/L (98-107) Carbon Dioxide Level 26 mmol/L (21-32) 30 mmol/L (21-32) Anion Gap 11 (6-14) 7 (6-14) Blood Urea Nitrogen 63 mg/dL (7-20) 30 mg/dL (7-20) Creatinine 7.9 mg/dL (0.6-1.0) 4.8 mg/dL (0.6-1.0) Estimated GFR (Cockcroft-Gault) 5.9 10.5 BUN/Creatinine Ratio 8 (6-20) 6 (6-20) Glucose Level 128 mg/dL (70-99) 128 mg/dL (70-99) Calcium Level 7.1 mg/dL (8.5-10.1) 7.5 mg/dL (8.5-10.1) Magnesium Level 2.7 mg/dL (1.8-2.4) Total Bilirubin 0.4 mg/dL (0.2-1.0) 0.4 mg/dL (0.2-1.0) Aspartate Amino Transf (AST/SGOT) 127 U/L (15-37) 55 U/L (15-37) Alanine Aminotransferase (ALT/SGPT) 104 U/L (14-59) 75 U/L (14-59) Alkaline Phosphatase 130 U/L (46-116) 110 U/L (46-116) Total Protein 7.1 g/dL (6.4-8.2) 5.9 g/dL (6.4-8.2) Albumin 3.6 g/dL (3.4-5.0) 2.9 g/dL (3.4-5.0) Albumin/Globulin Ratio 1.0 (1.0-1.7) 1.0 (1.0-1.7) Hepatitis B Surface Antigen Nonreactive (Nonreactive) Hepatitis B Surface Antibody Nonreactive Glucose (Fingerstick) 88 mg/dL (70-99) VTE Prophylaxis Ordered VTE Prophylaxis Devices: Yes VTE Pharmacological Prophylaxi: Yes Assessment/Plan Assessment/Plan A/P: Severe hyperkalemia - improved after dialysis ESRD-MWF - ok to d/c home ANEMIA - of chronic renal disease DM II - diet and insulin controlled HTN - cont home meds FEN - Renal ADA PPX - heparin Code - FULL Dispo - ok to d/c home CHARLIE CHAVEZ MD January 04, 2020 09:48
[2020-01-04] MEDS: LOSARTAN POTASSIUM 25 MG TABLET. PO SCH (10:12)
[2020-01-04] MEDS: hydrALAZINE 25 MG TABLET PO SCH (10:12)
[2020-01-04 11:00] VITALS: BP 142/67
--- NOTE | 2020-01-04 11:13 | PDOC2 ---
CONSULT Date of Consult Date of Consult DATE: 01/04/20 TIME: 11:08 Reason for Consult Reason for Consult: HIGH K Referring Physician Referring Physician: LEVIA Source Source: Chart review, Patient History of Present Illness Reason for Visit: THIS IS AN 84 YR OLD AA FEMALE ESRD PT ON OP HD MWF. ADMITTED WITH WEAKNESS. APPARENTLY ATE A LOT OF BANANAS. NOTED TO HAVE SEVERE HYPERKALEMIA. LABS C/W ESRD OTHERWISE. HAS ESRD DUE TO DM II AND HTN. INITIALLY TX WITH CA, D50 AND INSULIN. HAS AN AV ACCESS IN LEFT ARM FOR HER HD g. Past Medical History Cardiovascular: HTN Heme/Onc: Anemia NOS Renal/: Chronic renal insuff Past Surgical History Past Surgical History: Other Family History Family History: Hypertension Social History No ALCOHOL: none Drugs: None Lives: with Family Current Problem List Problem List Problems Medical Problems: (1) End stage kidney disease Status: Acute (2) Hyperkalemia Status: Acute (3) Hypertension Status: Acute (4) Hypocalcemia Status: Acute Current Medications Current Medications Current Medications Calcium Gluconate (Calcium Gluconate) 1,000 mg 1X ONCE IVP Last administered on 01/03/20at 15:45; Start 01/03/20 at 15:00; Stop 01/03/20 at 15:01; Status DC Dextrose (Dextrose 50%-Water Syringe) 25 gm 1X ONCE IV Last administered on 01/03/20at 15:44; Start 01/03/20 at 15:15; Stop 01/03/20 at 15:16; Status DC Insulin Human Regular (HumuLIN R VIAL) 10 unit 1X ONCE IV Last administered on 01/03/20at 15:46; Start 01/03/20 at 15:15; Stop 01/03/20 at 15:16; Status DC Hydralazine HCl (Apresoline Inj) 10 mg 1X ONCE IVP ; Start 01/03/20 at 15:45; Stop 01/03/20 at 15:46; Status DC Sodium Bicarbonate (Sodium Bicarb Adult 8.4% Syr) 50 meq 1X ONCE IV ; Start 01/03/20 at 16:15; Stop 01/03/20 at 16:16; Status DC Sodium Chloride 1,000 ml @ 1,000 mls/hr Q1H PRN IV hypotension; Start 01/03/20 at 17:46; Stop 01/03/20 at 23:45; Status DC Acetaminophen (Tylenol) 500 mg 1X PRN PRN PO MILD PAIN / TEMP > 100.3'F; Start 01/03/20 at 18:00; Stop 01/04/20 at 17:59 Diphenhydramine HCl (Benadryl) 25 mg 1X PRN PRN IV ITCHING; Start 01/03/20 at 18:00; Stop 01/04/20 at 17:59 Diphenhydramine HCl (Benadryl) 25 mg 1X PRN PRN IV ITCHING; Start 01/03/20 at 18:00; Stop 01/04/20 at 17:59 Sodium Chloride 1,000 ml @ 400 mls/hr Q2H30M PRN IV PATENCY; Start 01/03/20 at 17:46; Stop 01/04/20 at 05:45; Status DC Info (PHARMACY MONITORING -- do not chart) 1 each PRN DAILY PRN MC SEE COMMENTS; Start 01/03/20 at 18:00 Hydralazine HCl (Apresoline) 25 mg BID PO Last administered on 01/04/20at 10:12; Start 01/03/20 at 23:00 Losartan Potassium (Cozaar) 25 mg BID PO Last administered on 01/04/20at 10:12; Start 01/03/20 at 23:00 Ziprasidone (Geodon) 20 mg HS PO Last administered on 01/03/20at 22:49; Start 01/03/20 at 23:00 Active Scripts Active Reported Ziprasidone Hcl 20 Mg Capsule 20 Mg PO HS Losartan Potassium 50 Mg Tablet 25 Mg PO BID Hydralazine Hcl 25 Mg Tablet 1 Tab PO BID Allergies Allergies: Coded Allergies: Sulfa (Sulfonamide Antibiotics) (Verified Allergy, Severe, "Ashkan Ubaldo's disease", 08/13/15) ROS General: YES: Fatigue, Malaise, Appetite PSYCHOLOGICAL ROS: YES: Anxiety Eyes: Yes Decreased vision ALLERGY AND IMMUNOLOGY: YES: Seasonal Allergies Respiratory: YES: Cough Cardiovascular: yes Edema Gastrointestinal: Yes Constipation Genitourinary: YES Other (ANURIA) Musculoskeletal: Yes Muscular Weakness Neurological: Yes Weakness Skin: Yes Dry Skin Physical Exam Physical Exam AV ACCESS HAS A GOOD THRILL AND BRUIT General: Alert, Oriented X3, Cooperative, No acute distress HEENT: Atraumatic, PERRLA, EOMI, Mucous membr. moist/pink Lungs: Clear to auscultation, Normal air movement Heart: Regular rate Abdomen: Normal bowel sounds, Soft Extremities: No clubbing Skin: No breakdown, No significant lesion Neuro: Normal speech, Sensation intact Psych/Mental Status: Mental status NL MUSCULOSKELETAL: No deformity, No swelling Vitals VITALS Vital Signs Date Time Temp Pulse Resp B/P (MAP) Pulse Ox O2 Delivery O2 Flow Rate FiO2 01/04/20 10:12 71 143/63 01/04/20 07:15 98.3 96 Room Air 98.3 01/04/20 03:58 16 Labs Labs Laboratory Tests Test 01/03/20 14:30 01/03/20 16:50 01/03/20 20:37 01/04/20 03:49 White Blood Count 5.0 x10^3/uL (4.0-11.0) 3.8 x10^3/uL (4.0-11.0) Red Blood Count 4.14 x10^6/uL (3.50-5.40) 3.73 x10^6/uL (3.50-5.40) Hemoglobin 11.5 g/dL (12.0-15.5) 10.4 g/dL (12.0-15.5) Hematocrit 36.7 % (36.0-47.0) 32.5 % (36.0-47.0) Mean Corpuscular Volume 89 fL (79-100) 87 fL (79-100) Mean Corpuscular Hemoglobin 28 pg (25-35) 28 pg (25-35) Mean Corpuscular Hemoglobin Concent 32 g/dL (31-37) 32 g/dL (31-37) Red Cell Distribution Width 18.4 % (11.5-14.5) 18.1 % (11.5-14.5) Platelet Count 305 x10^3/uL (140-400) 235 x10^3/uL (140-400) Neutrophils (%) (Auto) 70 % (31-73) 67 % (31-73) Lymphocytes (%) (Auto) 17 % (24-48) 18 % (24-48) Monocytes (%) (Auto) 11 % (0-9) 13 % (0-9) Eosinophils (%) (Auto) 1 % (0-3) 1 % (0-3) Basophils (%) (Auto) 1 % (0-3) 1 % (0-3) Neutrophils # (Auto) 3.5 x10^3/uL (1.8-7.7) 2.5 x10^3/uL (1.8-7.7) Lymphocytes # (Auto) 0.8 x10^3/uL (1.0-4.8) 0.7 x10^3/uL (1.0-4.8) Monocytes # (Auto) 0.5 x10^3/uL (0.0-1.1) 0.5 x10^3/uL (0.0-1.1) Eosinophils # (Auto) 0.0 x10^3/uL (0.0-0.7) 0.1 x10^3/uL (0.0-0.7) Basophils # (Auto) 0.1 x10^3/uL (0.0-0.2) 0.0 x10^3/uL (0.0-0.2) Sodium Level 139 mmol/L (136-145) 138 mmol/L (136-145) Potassium Level 6.9 mmol/L (3.5-5.1) 5.0 mmol/L (3.5-5.1) Chloride Level 102 mmol/L (98-107) 101 mmol/L (98-107) Carbon Dioxide Level 26 mmol/L (21-32) 30 mmol/L (21-32) Anion Gap 11 (6-14) 7 (6-14) Blood Urea Nitrogen 63 mg/dL (7-20) 30 mg/dL (7-20) Creatinine 7.9 mg/dL (0.6-1.0) 4.8 mg/dL (0.6-1.0) Estimated GFR (Cockcroft-Gault) 5.9 10.5 BUN/Creatinine Ratio 8 (6-20) 6 (6-20) Glucose Level 128 mg/dL (70-99) 128 mg/dL (70-99) Calcium Level 7.1 mg/dL (8.5-10.1) 7.5 mg/dL (8.5-10.1) Magnesium Level 2.7 mg/dL (1.8-2.4) Total Bilirubin 0.4 mg/dL (0.2-1.0) 0.4 mg/dL (0.2-1.0) Aspartate Amino Transf (AST/SGOT) 127 U/L (15-37) 55 U/L (15-37) Alanine Aminotransferase (ALT/SGPT) 104 U/L (14-59) 75 U/L (14-59) Alkaline Phosphatase 130 U/L (46-116) 110 U/L (46-116) Total Protein 7.1 g/dL (6.4-8.2) 5.9 g/dL (6.4-8.2) Albumin 3.6 g/dL (3.4-5.0) 2.9 g/dL (3.4-5.0) Albumin/Globulin Ratio 1.0 (1.0-1.7) 1.0 (1.0-1.7) Hepatitis B Surface Antigen Nonreactive (Nonreactive) Hepatitis B Surface Antibody Nonreactive Glucose (Fingerstick) 88 mg/dL (70-99) Laboratory Tests Test 01/03/20 14:30 01/03/20 16:50 01/03/20 20:37 01/04/20 03:49 White Blood Count 5.0 x10^3/uL (4.0-11.0) 3.8 x10^3/uL (4.0-11.0) Red Blood Count 4.14 x10^6/uL (3.50-5.40) 3.73 x10^6/uL (3.50-5.40) Hemoglobin 11.5 g/dL (12.0-15.5) 10.4 g/dL (12.0-15.5) Hematocrit 36.7 % (36.0-47.0) 32.5 % (36.0-47.0) Mean Corpuscular Volume 89 fL (79-100) 87 fL (79-100) Mean Corpuscular Hemoglobin 28 pg (25-35) 28 pg (25-35) Mean Corpuscular Hemoglobin Concent 32 g/dL (31-37) 32 g/dL (31-37) Red Cell Distribution Width 18.4 % (11.5-14.5) 18.1 % (11.5-14.5) Platelet Count 305 x10^3/uL (140-400) 235 x10^3/uL (140-400) Neutrophils (%) (Auto) 70 % (31-73) 67 % (31-73) Lymphocytes (%) (Auto) 17 % (24-48) 18 % (24-48) Monocytes (%) (Auto) 11 % (0-9) 13 % (0-9) Eosinophils (%) (Auto) 1 % (0-3) 1 % (0-3) Basophils (%) (Auto) 1 % (0-3) 1 % (0-3) Neutrophils # (Auto) 3.5 x10^3/uL (1.8-7.7) 2.5 x10^3/uL (1.8-7.7) Lymphocytes # (Auto) 0.8 x10^3/uL (1.0-4.8) 0.7 x10^3/uL (1.0-4.8) Monocytes # (Auto) 0.5 x10^3/uL (0.0-1.1) 0.5 x10^3/uL (0.0-1.1) Eosinophils # (Auto) 0.0 x10^3/uL (0.0-0.7) 0.1 x10^3/uL (0.0-0.7) Basophils # (Auto) 0.1 x10^3/uL (0.0-0.2) 0.0 x10^3/uL (0.0-0.2) Sodium Level 139 mmol/L (136-145) 138 mmol/L (136-145) Potassium Level 6.9 mmol/L (3.5-5.1) 5.0 mmol/L (3.5-5.1) Chloride Level 102 mmol/L (98-107) 101 mmol/L (98-107) Carbon Dioxide Level 26 mmol/L (21-32) 30 mmol/L (21-32) Anion Gap 11 (6-14) 7 (6-14) Blood Urea Nitrogen 63 mg/dL (7-20) 30 mg/dL (7-20) Creatinine 7.9 mg/dL (0.6-1.0) 4.8 mg/dL (0.6-1.0) Estimated GFR (Cockcroft-Gault) 5.9 10.5 BUN/Creatinine Ratio 8 (6-20) 6 (6-20) Glucose Level 128 mg/dL (70-99) 128 mg/dL (70-99) Calcium Level 7.1 mg/dL (8.5-10.1) 7.5 mg/dL (8.5-10.1) Magnesium Level 2.7 mg/dL (1.8-2.4) Total Bilirubin 0.4 mg/dL (0.2-1.0) 0.4 mg/dL (0.2-1.0) Aspartate Amino Transf (AST/SGOT) 127 U/L (15-37) 55 U/L (15-37) Alanine Aminotransferase (ALT/SGPT) 104 U/L (14-59) 75 U/L (14-59) Alkaline Phosphatase 130 U/L (46-116) 110 U/L (46-116) Total Protein 7.1 g/dL (6.4-8.2) 5.9 g/dL (6.4-8.2) Albumin 3.6 g/dL (3.4-5.0) 2.9 g/dL (3.4-5.0) Albumin/Globulin Ratio 1.0 (1.0-1.7) 1.0 (1.0-1.7) Hepatitis B Surface Antigen Nonreactive (Nonreactive) Hepatitis B Surface Antibody Nonreactive Glucose (Fingerstick) 88 mg/dL (70-99) Assessment/Plan Assessment/Plan IMP SEVERE HYPERKALEMIA ESRD-MWF ANEMIA DM II HTN PLAN EMERGENT HD DONE LAST NIGHT ELISEO NEEDED ENC DIETARY COMPLIANCE HD MWF MAURO CASEY MD January 04, 2020 11:13
--- NOTE | 2020-01-04 13:48 | NUR ---
SS following up with discharge planning. SS reviewed pt chart and discussed with pt RN. Pt is from home with daughter and is currently on room air. Pt has outpatient dialysis at [facility], ; fax [phone], Friday, Friday, and Friday. Per RN, pt stable for discharge to home. SS contacted [facility] and was notified that they do not need COVID testing. Pt's RN and physician notified.
--- NOTE | 2020-01-04 13:55 | PDOC3 ---
Discharge Summary Visit Information Date of Admission: January 03, 2020 Date of Discharge: January 04, 2020 Admitting Diagnosis: Hyperkalemia Final Diagnosis Problems Medical Problems: (1) End stage kidney disease Status: Acute (2) Hyperkalemia Status: Acute (3) Hypertension Status: Acute (4) Hypocalcemia Status: Acute Brief Hospital Course Allergies Allergies Coded Allergies Type Severity Reaction Last Updated Verified Sulfa (Sulfonamide Antibiotics) Allergy Severe "Ashkan Ubaldo's disease" 08/13/15 Yes Vital Signs Vital Signs Date Time Temp Pulse Resp B/P (MAP) Pulse Ox O2 Delivery O2 Flow Rate FiO2 01/04/20 11:00 98.5 87 16 142/67 (92) 98 Room Air 98.5 Lab Results Laboratory Tests Test 01/03/20 14:30 01/03/20 16:50 01/03/20 20:37 01/04/20 03:49 White Blood Count 5.0 x10^3/uL (4.0-11.0) 3.8 x10^3/uL (4.0-11.0) Red Blood Count 4.14 x10^6/uL (3.50-5.40) 3.73 x10^6/uL (3.50-5.40) Hemoglobin 11.5 g/dL (12.0-15.5) 10.4 g/dL (12.0-15.5) Hematocrit 36.7 % (36.0-47.0) 32.5 % (36.0-47.0) Mean Corpuscular Volume 89 fL (79-100) 87 fL (79-100) Mean Corpuscular Hemoglobin 28 pg (25-35) 28 pg (25-35) Mean Corpuscular Hemoglobin Concent 32 g/dL (31-37) 32 g/dL (31-37) Red Cell Distribution Width 18.4 % (11.5-14.5) 18.1 % (11.5-14.5) Platelet Count 305 x10^3/uL (140-400) 235 x10^3/uL (140-400) Neutrophils (%) (Auto) 70 % (31-73) 67 % (31-73) Lymphocytes (%) (Auto) 17 % (24-48) 18 % (24-48) Monocytes (%) (Auto) 11 % (0-9) 13 % (0-9) Eosinophils (%) (Auto) 1 % (0-3) 1 % (0-3) Basophils (%) (Auto) 1 % (0-3) 1 % (0-3) Neutrophils # (Auto) 3.5 x10^3/uL (1.8-7.7) 2.5 x10^3/uL (1.8-7.7) Lymphocytes # (Auto) 0.8 x10^3/uL (1.0-4.8) 0.7 x10^3/uL (1.0-4.8) Monocytes # (Auto) 0.5 x10^3/uL (0.0-1.1) 0.5 x10^3/uL (0.0-1.1) Eosinophils # (Auto) 0.0 x10^3/uL (0.0-0.7) 0.1 x10^3/uL (0.0-0.7) Basophils # (Auto) 0.1 x10^3/uL (0.0-0.2) 0.0 x10^3/uL (0.0-0.2) Sodium Level 139 mmol/L (136-145) 138 mmol/L (136-145) Potassium Level 6.9 mmol/L (3.5-5.1) 5.0 mmol/L (3.5-5.1) Chloride Level 102 mmol/L (98-107) 101 mmol/L (98-107) Carbon Dioxide Level 26 mmol/L (21-32) 30 mmol/L (21-32) Anion Gap 11 (6-14) 7 (6-14) Blood Urea Nitrogen 63 mg/dL (7-20) 30 mg/dL (7-20) Creatinine 7.9 mg/dL (0.6-1.0) 4.8 mg/dL (0.6-1.0) Estimated GFR (Cockcroft-Gault) 5.9 10.5 BUN/Creatinine Ratio 8 (6-20) 6 (6-20) Glucose Level 128 mg/dL (70-99) 128 mg/dL (70-99) Calcium Level 7.1 mg/dL (8.5-10.1) 7.5 mg/dL (8.5-10.1) Magnesium Level 2.7 mg/dL (1.8-2.4) Total Bilirubin 0.4 mg/dL (0.2-1.0) 0.4 mg/dL (0.2-1.0) Aspartate Amino Transf (AST/SGOT) 127 U/L (15-37) 55 U/L (15-37) Alanine Aminotransferase (ALT/SGPT) 104 U/L (14-59) 75 U/L (14-59) Alkaline Phosphatase 130 U/L (46-116) 110 U/L (46-116) Total Protein 7.1 g/dL (6.4-8.2) 5.9 g/dL (6.4-8.2) Albumin 3.6 g/dL (3.4-5.0) 2.9 g/dL (3.4-5.0) Albumin/Globulin Ratio 1.0 (1.0-1.7) 1.0 (1.0-1.7) Hepatitis B Surface Antigen Nonreactive (Nonreactive) Hepatitis B Surface Antibody Nonreactive Glucose (Fingerstick) 88 mg/dL (70-99) Laboratory Tests Test 01/03/20 14:30 01/03/20 16:50 01/03/20 20:37 01/04/20 03:49 White Blood Count 5.0 x10^3/uL (4.0-11.0) 3.8 x10^3/uL (4.0-11.0) Red Blood Count 4.14 x10^6/uL (3.50-5.40) 3.73 x10^6/uL (3.50-5.40) Hemoglobin 11.5 g/dL (12.0-15.5) 10.4 g/dL (12.0-15.5) Hematocrit 36.7 % (36.0-47.0) 32.5 % (36.0-47.0) Mean Corpuscular Volume 89 fL (79-100) 87 fL (79-100) Mean Corpuscular Hemoglobin 28 pg (25-35) 28 pg (25-35) Mean Corpuscular Hemoglobin Concent 32 g/dL (31-37) 32 g/dL (31-37) Red Cell Distribution Width 18.4 % (11.5-14.5) 18.1 % (11.5-14.5) Platelet Count 305 x10^3/uL (140-400) 235 x10^3/uL (140-400) Neutrophils (%) (Auto) 70 % (31-73) 67 % (31-73) Lymphocytes (%) (Auto) 17 % (24-48) 18 % (24-48) Monocytes (%) (Auto) 11 % (0-9) 13 % (0-9) Eosinophils (%) (Auto) 1 % (0-3) 1 % (0-3) Basophils (%) (Auto) 1 % (0-3) 1 % (0-3) Neutrophils # (Auto) 3.5 x10^3/uL (1.8-7.7) 2.5 x10^3/uL (1.8-7.7) Lymphocytes # (Auto) 0.8 x10^3/uL (1.0-4.8) 0.7 x10^3/uL (1.0-4.8) Monocytes # (Auto) 0.5 x10^3/uL (0.0-1.1) 0.5 x10^3/uL (0.0-1.1) Eosinophils # (Auto) 0.0 x10^3/uL (0.0-0.7) 0.1 x10^3/uL (0.0-0.7) Basophils # (Auto) 0.1 x10^3/uL (0.0-0.2) 0.0 x10^3/uL (0.0-0.2) Sodium Level 139 mmol/L (136-145) 138 mmol/L (136-145) Potassium Level 6.9 mmol/L (3.5-5.1) 5.0 mmol/L (3.5-5.1) Chloride Level 102 mmol/L (98-107) 101 mmol/L (98-107) Carbon Dioxide Level 26 mmol/L (21-32) 30 mmol/L (21-32) Anion Gap 11 (6-14) 7 (6-14) Blood Urea Nitrogen 63 mg/dL (7-20) 30 mg/dL (7-20) Creatinine 7.9 mg/dL (0.6-1.0) 4.8 mg/dL (0.6-1.0) Estimated GFR (Cockcroft-Gault) 5.9 10.5 BUN/Creatinine Ratio 8 (6-20) 6 (6-20) Glucose Level 128 mg/dL (70-99) 128 mg/dL (70-99) Calcium Level 7.1 mg/dL (8.5-10.1) 7.5 mg/dL (8.5-10.1) Magnesium Level 2.7 mg/dL (1.8-2.4) Total Bilirubin 0.4 mg/dL (0.2-1.0) 0.4 mg/dL (0.2-1.0) Aspartate Amino Transf (AST/SGOT) 127 U/L (15-37) 55 U/L (15-37) Alanine Aminotransferase (ALT/SGPT) 104 U/L (14-59) 75 U/L (14-59) Alkaline Phosphatase 130 U/L (46-116) 110 U/L (46-116) Total Protein 7.1 g/dL (6.4-8.2) 5.9 g/dL (6.4-8.2) Albumin 3.6 g/dL (3.4-5.0) 2.9 g/dL (3.4-5.0) Albumin/Globulin Ratio 1.0 (1.0-1.7) 1.0 (1.0-1.7) Hepatitis B Surface Antigen Nonreactive (Nonreactive) Hepatitis B Surface Antibody Nonreactive Glucose (Fingerstick) 88 mg/dL (70-99) Brief Hospital Course Ms Michelle is an 84yo F w/ PMHx dementia, Diabetes-Type II, Hypertension, ESRD on HD on MWF who was brought here by her family for possible elevated potassium level. Last dialysis was on Friday. Over the weekend patient has been eating a bunch of baking soda and then ate a bunch of bananas as well. She was scheduled to have dialysis 01/02 however she did not want to go and her daughter called her family doctor who told her bring her mom to ED. Patient denies any chest pain, no abdominal pain, no headache. Patient denies any nausea or vomiting, denies any trouble breathing. Noted with K6.9, NA 139, BUN 63, CR 7.9, AST 127, ALT 104, alkaline phosphatase 130, albumin 2.9, WBC 3.8, Hb 11.5, platelets 305. EKG - Given 1g calcium gluconate, insulin and D50 and called for urgent dialysis treatment, which she had on 01/03/2020. Seen on 01/04/2020 in the morning, much improved. Consults: Nephrology Problem list: Severe hyperkalemia - improved after dialysis ESRD-MWF - ok to d/c home ANEMIA - of chronic renal disease DM II - diet and insulin controlled HTN - cont home meds Greater than 30 minutes spent on d/c Discharge Information Condition at Discharge: Improved Follow Up: Weeks (1) Disposition/Orders: D/C to Home Scheduled Hydralazine Hcl (Hydralazine Hcl) 25 Mg Tablet, 1 TAB PO BID for hypertension, #90 Ref 5 (Reported) Entered as Reported by: SUKHDEV OLIVER on 08/04/19453 Last Action: Continued on 01/03/202199 by Jose Marinelli Losartan Potassium (Losartan Potassium) 50 Mg Tablet, 25 MG PO BID for HYPERTENSION, (Reported) Entered as Reported by: SUKHDEV OLIVER on 08/04/19453 Last Action: Continued on 01/03/202199 by Jose Marinelli Ziprasidone Hcl (Ziprasidone Hcl) 20 Mg Capsule, 20 MG PO HS for bipolar, (Reported) Entered as Reported by: Jose Marinelli on 01/03/202112 Last Action: Continued on 01/03/202199 by CHARLIE Salazar MD January 04, 2020 13:55
--- NOTE | 2020-01-04 16:05 | NUR ---
Discharge Note: KERI PAN Discharge instructions and discharge home medications reviewed with Patient in room and daughter via phone, and a copy given. All questions have been answered and understanding verbalized. The following instructions and handouts were given: patient visit report, medication information, education. Discontinued lines and drains: peripheral IV, tip intact. Patient discharged to home with self care via private vehicle. Patient left unit awake, in stable condition, with all personal belongings.
== END 2020-01-04 15:20 | disposition home or self-care (01) | DRG 640 ==
LOC: ER 13:11 → 6 SOUTH 16:45
PROVIDERS: ADMIT Internal Medicine; ATTEND Internal Medicine
PROC: 5A1D70Z Performance of Urinary Filtration, Intermittent, Less than 6 Hours Per Day (ICD-10-PCS; principal; 2020-01-03)
DX: E87.5 Hyperkalemia (principal); N18.6 End stage renal disease; I12.0 Hypertensive chronic kidney disease with stage 5 chronic kidney disease or end stage renal disease; D63.1 Anemia in chronic kidney disease; E11.22 Type 2 diabetes mellitus with diabetic chronic kidney disease; E83.51 Hypocalcemia; F03.90 Unspecified dementia, unspecified severity, without behavioral disturbance, psychotic disturbance, mood disturbance, and anxiety; Z79.4 Long term (current) use of insulin; Z82.49 Family history of ischemic heart disease and other diseases of the circulatory system; Z87.891 Personal history of nicotine dependence; Z90.11 Acquired absence of right breast and nipple; Z90.710 Acquired absence of both cervix and uterus; Z99.2 Dependence on renal dialysis; Z88.2 Allergy status to sulfonamides
CPT/HCPCS: 36415; 80053; 82962; 83735; 85025; 86706; 87340; 96374; 96375; J0610; J1815; J7042; 99285-25; G0378

== ENCOUNTER 2020-03-03 15:44 | Inpatient (IN) | payer MEDICARE ==
[~2020-03-03] VITALS: Ht 162.6 cm; Wt 72.2 kg
[~2020-03-03 15:44] MED LIST changes: +ZIPR20CA3 PO
--- NOTE | 2020-03-03 16:13 | PHYS DOC ---
Past Medical History Past Medical History: Diabetes-Type II, Hypertension, Renal Disease Past Surgical History: Hysterectomy, Other Additional Past Surgical Histo: RIGHT MASTECTOMY, LEFT DIALYSIS FISTULA Smoking Status: Former Smoker Alcohol Use: None Drug Use: None General Adult EDM: Chief Complaint: CHEST PAIN HPI: HPI: Patient is a 84 year old female patient who presents with EMS from dialysis. Patient reportedly had been on dialysis today, had completed her dialysis, and had surgery complain of some chest pain. Patient reports she has some pain in her right upper chest area. Patient reportedly has been seen for this multiple times recently, had been seen at another facility earlier this week for similar with unremarkable findings. Patient does have a history of dementia, end-stage renal dialysis. Does dialysis Friday. Has not missed any dialysis appointments recently. On arrival, patient states she feels good, has no complaints or concerns. States her chest pain was earlier, it is no longer having discomfort. Patient denies nausea. She denies dizziness, patient denies dyspnea. Review of Systems: Review of Systems: Constitutional: Denies fever or chills. [] Eyes: Denies change in visual acuity. [] HENT: Denies nasal congestion or sore throat. [] Respiratory: Denies cough or shortness of breath. [] Cardiovascular: Reports right upper chest wall GI: Denies abdominal pain, nausea, vomiting, bloody stools or diarrhea. [] : Denies dysuria. [] Musculoskeletal: Denies back pain or joint pain. Does complain generalized leg aching [] Integument: Denies rash. [] Neurologic: Denies headache, focal weakness or sensory changes. [] Endocrine: Denies polyuria or polydipsia. [] Lymphatic: Denies swollen glands. [] Psychiatric: Denies depression or anxiety. [] Heart Score: HEART Score for Chest Pain: HEART Score for Chest Pain Response (Comments) Value History Slighlty/Non-Suspicious 0 ECG Normal 0 Age > 65 2 Risk Factors 1 or 2 Risk Factors 1 Troponin >1-<3x Normal Limit 1 Total 4 Risk Factors: Risk Factors: DM, Current or recent (<one month) smoker, HTN, HLP, family history of CAD, obesity. Risk Scores: Score 0 - 3: 2.5% MACE over next 6 weeks - Discharge Home Score 4 - 6: 20.3% MACE over next 6 weeks - Admit for Clinical Observation Score 7 - 10: 72.7% MACE over next 6 weeks - Early Invasive Strategies Allergies: Allergies: Allergies Coded Allergies Type Severity Reaction Last Updated Verified Sulfa (Sulfonamide Antibiotics) Allergy Severe "Ashkan Ubaldo's disease" 08/13/15 Yes Physical Exam: PE: Constitutional: Well developed, well nourished, no acute distress, non-toxic appearance. [] HENT: Normocephalic, atraumatic, oropharynx moist, no oral exudates, nose normal. [] Eyes: PERRLA, EOMI, conjunctiva normal, no discharge. [] Neck: Normal range of motion, no tenderness, supple, no stridor. [] Cardiovascular:Heart rate regular rhythm, no murmur [] Lungs & Thorax: Bilateral breath sounds clear to auscultation no discomfort noted on palpation of chest. No chest wall deformity noted. Left anterior chest noted dialysis port, without erythema. [] Abdomen: Bowel sounds normal, soft, no tenderness, no masses, no pulsatile masses. [] Skin: Warm, dry, no erythema, no rash. [] Back: No tenderness, no CVA tenderness. [] Extremities: No tenderness, no cyanosis, no clubbing, ROM intact, no edema. Dialysis shunt noted to left forearm [] Neurologic: Alert and oriented X 3, normal motor function, normal sensory function, no focal deficits noted. Does ask repeated questions at times, reported normal for patient. [] Psychologic: Affect normal, judgement normal, mood normal. [] EKG: EKG: [] Normal sinus rhythm left axis deviation, no ST changes per Dr. Veliz Radiology/Procedures: Radiology/Procedures: Comparison: 07/04/2019 Portable Chest X-ray Exam. Findings: AP portable upright frontal view of the chest was obtained. Left internal jugular dialysis catheter tip terminates overlying the right atrium. The cardiomediastinal silhouette is normal. No focal consolidation. Borderline pulmonary vasculature is noted.. There is no pneumothorax. Minimal blunting of costophrenic angles which may represent very small pleural effusions noted. No acute bone abnormality. IMPRESSION: Borderline pulmonary arterial vasculature congestion. Minimal pleural effusions suspected. No focal infiltrate. Electronically signed by: Denis Duval MD (03/03/2020 4:26 PM) [facility] [] Course & Med Decision Making: Course & Med Decision Making Pertinent Labs and Imaging studies reviewed. (See chart for details) [] Reviewed labs with elevated troponin. With history of chest discomfort, will plan for admission to monitor and trend. @[address] Scott, agrees to admission. Will admit patient for elevated opponent and chest pain Dragon Disclaimer: Dragabdulaziz Disclaimer: This electronic medical record was generated, in whole or in part, using a voice recognition dictation system. Departure Departure Impression: Primary Impression: Chest pain Qualified Codes: R07.89 - Other chest pain Additional Impressions: ESRD (end stage renal disease) Elevated troponin Disposition: ADMITTED INPATIENT Admitting Physician: JUAN Condition: STABLE Referrals: DELTA RIZVI MD (PCP) Justicifation of Admission Dx: Justifications for Admission: Justification of Admission Dx: N/A YESI PADILLA APRN Mar 03, 2020 16:13
--- NOTE | 2020-03-03 16:28 | RAD ---
Examination: CHEST AP ONLY History: Reason: Chest pain / Spl. Instructions: / History: Comparison: 07/04/2019 Portable Chest X-ray Exam. Findings: AP portable upright frontal view of the chest was obtained. Left internal jugular dialysis catheter tip terminates overlying the right atrium. The cardiomediastinal silhouette is normal. No focal consolidation. Borderline pulmonary vasculature is noted.. There is no pneumothorax. Minimal blunting of costophrenic angles which may represent very small pleural effusions noted. No acute bone abnormality. IMPRESSION: Borderline pulmonary arterial vasculature congestion. Minimal pleural effusions suspected. No focal infiltrate. Electronically signed by: Denis Duval MD (03/03/2020 4:26 PM) [facility]
[2020-03-03] MEDS ORDERED: ASPIRIN CHEWABLE 81 MG TABLET. PO ONE (16:45)
[2020-03-03 16:51] LABS: BASO % 1 % (0-3); EOS % 0 % (0-3); HEMATOCRIT 38.4 % (36.0-47.0); HEMOGLOBIN 12.5 g/dL (12.0-15.5); LYMPH # 0.4 x10^3/uL (1.0-4.8); LYMPH % 10 % (24-48); MEAN CORPUSCULAR HEMOGLOBIN 28 pg (25-35); MEAN CORPUSCULAR HGB CONC 33 g/dL (31-37); MEAN CORPUSCULAR VOLUME 85 fL (79-100); MONO # 0.4 x10^3/uL (0.0-1.1); MONO % 11 % (0-9); NEUT % 78 % (31-73); PLATELET COUNT 184 x10^3/uL (140-400); RED BLOOD COUNT 4.51 x10^6/uL (3.50-5.40); RED CELL DISTRIBUTION WIDTH 17.8 % (11.5-14.5); WHITE BLOOD COUNT 3.9 x10^3/uL (4.0-11.0)
[2020-03-03 17:06] LABS: CALCIUM 7.5 mg/dL (8.5-10.1); CREATININE 4.3 mg/dL (0.6-1.0); GFR 11.9; POTASSIUM 4.2 mmol/L (3.5-5.1)
[2020-03-03 17:16] LABS: ALBUMIN 3.5 g/dL (3.4-5.0); ALBUMIN/GLOBULIN RATIO 1.1 (1.0-1.7); TOTAL BILIRUBIN 0.6 mg/dL (0.2-1.0); TOTAL PROTEIN 6.7 g/dL (6.4-8.2)
[2020-03-03] MEDS ORDERED: DONE5TAB7 PO (19:39)
[2020-03-03] MEDS ORDERED: LOSA25TA12 PO (19:39)
[2020-03-03] MEDS ORDERED: ERGO500027 PO (19:39)
[2020-03-03 20:02] VITALS: BP 138/49
[2020-03-03] MEDS ORDERED: DOCUSATE SODIUM 100 MG CAPSULE. PO PRN (20:30)
[2020-03-03] MEDS ORDERED: 0.9 % SODIUM CHLORIDE 10 ML DISP.SYRIN. IV PRN (20:30)
[2020-03-03] MEDS ORDERED: ONDANSETRON PF 4 MG/2 ML VIAL. IV PRN (20:30)
[2020-03-03] MEDS ORDERED: guaiFENesin ORAL 200 MG/10 ML LIQUID. PO PRN (20:30)
[2020-03-03] MEDS ORDERED: ACETAMINOPHEN 325 MG TABLET. PO PRN (20:30)
[2020-03-03] MEDS ORDERED: ALBUTEROL SULFATE 2.5 MG/3 ML NEBU. NEB PRN (20:30)
[2020-03-03] MEDS: DONEPEZIL HCL 5 MG TABLET. PO SCH (21:11)
[2020-03-03] MEDS: ZIPRASIDONE 20 MG CAPSULE PO SCH (21:11)
[2020-03-03] MEDS: hydrALAZINE 25 MG TABLET PO SCH (21:12)
[2020-03-03] MEDS: LOSARTAN POTASSIUM 25 MG TABLET. PO SCH (21:12)
[2020-03-03 22:38] VITALS: BP 140/49
[2020-03-04 02:07] VITALS: BP 133/37
--- NOTE | 2020-03-04 05:57 | NUR ---
Pt arrived to unit at approx 1950 03/03/20 accompanied by ED nurse and patients daughter. VS stable, assessment complete. Patient on RA resting comfortably, with no complaints of pain at this time. Medications reviewed with patient daughter. oriented patient to unit, call light in reach, bed alarm on. reminded patient to call for assistance before ambulating. Will continue to monitor.
[2020-03-04 07:00] VITALS: BP 152/48
--- NOTE | 2020-03-04 08:09 | PDOC1 ---
History and Physical Date of Admission Date of Admission 03/04/2020 Identification/Chief Complaint Chief Complaint Chest pain Source Source: Chart review, Patient History of Present Illness History of Present Illness Patient is an 84-year-old female with past medical history of type 2 diabetes hypertension end-stage renal disease on hemodialysis who was in her usual state of health until the day of dialysis when while receiving her treatment she complained of chest discomfort that lasted less than 5 minutes no sensation of impending doom no nausea no diaphoresis no palpitations no shortness of breath associated with the pain. Patient denies radiation to the jaw to the arm or to the back. At the time of my evaluation patient is in no acute distress. Her troponin was mildly elevated in the ER has requested for us to admit the patient for his cardiological evaluation. At the time of my visit the patient is resting in bed in no acute distress no chest pain has been reported throughout the night either. Telemetry does not have any concerning signs either. Reassurance has been provided Past Medical History Past Medical History: Diabetes-Type II, Hypertension, Renal Disease Past Surgical History: Hysterectomy, Other Additional Past Surgical Histo: RIGHT MASTECTOMY, LEFT DIALYSIS FISTULA Smoking Status: Former Smoker Alcohol Use: None Drug Use: None General Adult EDM: Chief Complaint: CHEST PAIN HPI: HPI: Patient is a 84 year old female patient who presents with EMS from dialysis. Patient reportedly had been on dialysis today, had completed her dialysis, and had surgery complain of some chest pain. Patient reports she has some pain in her right upper chest area. Patient reportedly has been seen for this multiple times recently, had been seen at another facility earlier this week for similar with unremarkable findings. Patient does have a history of dementia, end-stage renal dialysis. Does dialysis Friday. Has not missed any dialysis appointments recently. On arrival, patient states she feels good, has no complaints or concerns. States her chest pain was earlier, it is no longer having discomfort. Patient denies nausea. She denies dizziness, patient denies dyspnea. Past Medical History Cardiovascular: HTN Heme/Onc: Anemia NOS Renal/: Chronic renal insuff Past Surgical History Past Surgical History: Other Family History Family History: Hypertension Social History ALCOHOL: none Drugs: None Current Problem List Problem List Problems Medical Problems: (1) Chest pain Status: Acute (2) Elevated troponin Status: Acute Current Medications Current Medications Current Medications Medications (Trade) Dose Ordered Sig/Diana Start Time Stop Time Status Last Admin Dose Admin Acetaminophen (Tylenol) 650 mg PRN Q4HRS PRN 03/03/20 20:30 Albuterol Sulfate (Ventolin Neb Soln) 2.5 mg PRN Q4HRS PRN 03/03/20 20:30 Aspirin (Aspirin Chewable) 324 mg 1X ONCE 03/03/20 16:45 03/03/20 16:46 DC 03/03/20 16:33 324 MG Docusate Sodium (Colace) 100 mg PRN BID PRN 03/03/20 20:30 Donepezil HCl (Aricept) 5 mg QHS 03/03/20 21:00 03/03/20 21:11 5 MG Ergocalciferol (Vitamin D2) 50,000 unit Mo 03/06/20 09:00 Guaifenesin (Robitussin) 200 mg PRN Q4HRS PRN 03/03/20 20:30 Hydralazine HCl (Apresoline) 25 mg BID 03/03/20 21:00 03/03/20 21:12 25 MG Lorazepam (Ativan) 0.5 mg PRN Q4HRS PRN 03/03/20 20:30 Losartan Potassium (Cozaar) 25 mg BID 03/03/20 21:00 03/03/20 21:12 25 MG Ondansetron HCl (Zofran) 4 mg PRN Q4HRS PRN 03/03/20 20:30 Sodium Chloride (Normal Saline Flush) 3 ml QSHIFT PRN 03/03/20 20:30 Ziprasidone (Geodon) 20 mg HS 03/03/20 21:00 03/03/20 21:11 20 MG Allergies Allergies Allergies Coded Allergies Type Severity Reaction Last Updated Verified Sulfa (Sulfonamide Antibiotics) Allergy Severe "Ashkan Ubaldo's disease" 08/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 Alert and oriented. HEENT: Head is normocephalic, atraumatic NECK: Supple. LUNGS: Clear to auscultation. HEART: RRR, S1, S2 present. Peripheral pulses intact ABDOMEN: Soft, nontender. Positive bowel sounds. EXTREMITIES: Without any cyanosis. NEUROLOGIC: Normal speech, normal tone PSYCHIATRIC: Normal affect, normal mood. SKIN: No ulcerations Vitals Vitals Vital Signs Date Time Temp Pulse Resp B/P (MAP) Pulse Ox O2 Delivery O2 Flow Rate FiO2 03/04/20 02:07 98.2 55 16 133/37 (69) 95 Room Air 98.2 Labs Labs Laboratory Tests Test 03/03/20 16:40 03/03/20 21:40 03/04/20 02:00 White Blood Count 3.9 x10^3/uL (4.0-11.0) Red Blood Count 4.51 x10^6/uL (3.50-5.40) Hemoglobin 12.5 g/dL (12.0-15.5) Hematocrit 38.4 % (36.0-47.0) Mean Corpuscular Volume 85 fL (79-100) Mean Corpuscular Hemoglobin 28 pg (25-35) Mean Corpuscular Hemoglobin Concent 33 g/dL (31-37) Red Cell Distribution Width 17.8 % (11.5-14.5) Platelet Count 184 x10^3/uL (140-400) Neutrophils (%) (Auto) 78 % (31-73) Lymphocytes (%) (Auto) 10 % (24-48) Monocytes (%) (Auto) 11 % (0-9) Eosinophils (%) (Auto) 0 % (0-3) Basophils (%) (Auto) 1 % (0-3) Neutrophils # (Auto) 3.0 x10^3/uL (1.8-7.7) Lymphocytes # (Auto) 0.4 x10^3/uL (1.0-4.8) Monocytes # (Auto) 0.4 x10^3/uL (0.0-1.1) Eosinophils # (Auto) 0.0 x10^3/uL (0.0-0.7) Basophils # (Auto) 0.0 x10^3/uL (0.0-0.2) Sodium Level 136 mmol/L (136-145) Potassium Level 4.2 mmol/L (3.5-5.1) Chloride Level 99 mmol/L (98-107) Carbon Dioxide Level 27 mmol/L (21-32) Anion Gap 10 (6-14) Blood Urea Nitrogen 32 mg/dL (7-20) Creatinine 4.3 mg/dL (0.6-1.0) Estimated GFR (Cockcroft-Gault) 11.9 BUN/Creatinine Ratio 7 (6-20) Glucose Level 108 mg/dL (70-99) Calcium Level 7.5 mg/dL (8.5-10.1) Magnesium Level 2.0 mg/dL (1.8-2.4) Total Bilirubin 0.6 mg/dL (0.2-1.0) Aspartate Amino Transf (AST/SGOT) 25 U/L (15-37) Alanine Aminotransferase (ALT/SGPT) 27 U/L (14-59) Alkaline Phosphatase 82 U/L (46-116) Troponin I Quantitative 0.076 ng/mL (0.000-0.055) 0.096 ng/mL (0.000-0.055) 0.103 ng/mL (0.000-0.055) Total Protein 6.7 g/dL (6.4-8.2) Albumin 3.5 g/dL (3.4-5.0) Albumin/Globulin Ratio 1.1 (1.0-1.7) Laboratory Tests Test 03/03/20 16:40 03/03/20 21:40 03/04/20 02:00 White Blood Count 3.9 x10^3/uL (4.0-11.0) Red Blood Count 4.51 x10^6/uL (3.50-5.40) Hemoglobin 12.5 g/dL (12.0-15.5) Hematocrit 38.4 % (36.0-47.0) Mean Corpuscular Volume 85 fL (79-100) Mean Corpuscular Hemoglobin 28 pg (25-35) Mean Corpuscular Hemoglobin Concent 33 g/dL (31-37) Red Cell Distribution Width 17.8 % (11.5-14.5) Platelet Count 184 x10^3/uL (140-400) Neutrophils (%) (Auto) 78 % (31-73) Lymphocytes (%) (Auto) 10 % (24-48) Monocytes (%) (Auto) 11 % (0-9) Eosinophils (%) (Auto) 0 % (0-3) Basophils (%) (Auto) 1 % (0-3) Neutrophils # (Auto) 3.0 x10^3/uL (1.8-7.7) Lymphocytes # (Auto) 0.4 x10^3/uL (1.0-4.8) Monocytes # (Auto) 0.4 x10^3/uL (0.0-1.1) Eosinophils # (Auto) 0.0 x10^3/uL (0.0-0.7) Basophils # (Auto) 0.0 x10^3/uL (0.0-0.2) Sodium Level 136 mmol/L (136-145) Potassium Level 4.2 mmol/L (3.5-5.1) Chloride Level 99 mmol/L (98-107) Carbon Dioxide Level 27 mmol/L (21-32) Anion Gap 10 (6-14) Blood Urea Nitrogen 32 mg/dL (7-20) Creatinine 4.3 mg/dL (0.6-1.0) Estimated GFR (Cockcroft-Gault) 11.9 BUN/Creatinine Ratio 7 (6-20) Glucose Level 108 mg/dL (70-99) Calcium Level 7.5 mg/dL (8.5-10.1) Magnesium Level 2.0 mg/dL (1.8-2.4) Total Bilirubin 0.6 mg/dL (0.2-1.0) Aspartate Amino Transf (AST/SGOT) 25 U/L (15-37) Alanine Aminotransferase (ALT/SGPT) 27 U/L (14-59) Alkaline Phosphatase 82 U/L (46-116) Troponin I Quantitative 0.076 ng/mL (0.000-0.055) 0.096 ng/mL (0.000-0.055) 0.103 ng/mL (0.000-0.055) Total Protein 6.7 g/dL (6.4-8.2) Albumin 3.5 g/dL (3.4-5.0) Albumin/Globulin Ratio 1.1 (1.0-1.7) VTE Prophylaxis Ordered VTE Prophylaxis Devices: No VTE Pharmacological Prophylaxi: Yes Assessment/Plan Assessment/Plan Chest pain rule out ACS Essential hypertension fairly controlled End-stage renal disease on hemodialysis per schedule seems to be Friday Diabetes mellitus type 2 insulin requiring Plan Consult cardiology for evaluation Resume home medications Further recommendations based on the clinical course DVT prophylaxis with heparin Justicifation of Admission Dx: Justifications for Admission: Justification of Admission Dx: N/A RUSSELL ESCALERA MD Mar 04, 2020 08:09
[2020-03-04] MEDS: hydrALAZINE 25 MG TABLET PO SCH ×2 (10:54→21:09)
[2020-03-04] MEDS: LOSARTAN POTASSIUM 25 MG TABLET. PO SCH ×2 (10:54→21:09)
[2020-03-04 11:00] VITALS: BP 143/52
--- NOTE | 2020-03-04 11:38 | PDOC2 ---
CONSULT Date of Consult Date of Consult DATE: 03/04/20 TIME: 11:34 Reason for Consult Reason for Consult: Chest pain Referring Physician Referring Physician: Dr. Hernandez Identification/Chief Complaint Chief Complaint Chest pain Source Source: Chart review, Patient History of Present Illness Reason for Visit: 84-year-old female with end-stage renal disease was apparently being dialyzed when she started complaining of retrosternal chest discomfort that she described as pressure-like sensation lasting 5 minutes. She denied any associated shortness of breath, palpitations or syncope. She denied any previous cardiac history. She is presently feeling better and chest pain-free. Past Medical History Cardiovascular: HTN Heme/Onc: Anemia NOS Renal/: Chronic renal insuff Past Surgical History Past Surgical History: Other Family History Family History: Hypertension Social History ALCOHOL: none Drugs: None Lives: with Family Current Problem List Problem List Problems Medical Problems: (1) Chest pain Status: Acute (2) Elevated troponin Status: Acute Current Medications Current Medications Current Medications Aspirin (Aspirin Chewable) 324 mg 1X ONCE PO Last administered on 03/03/20at 16:33; Start 03/03/20 at 16:45; Stop 03/03/20 at 16:46; Status DC Donepezil HCl (Aricept) 5 mg QHS PO Last administered on 03/03/20at 21:11; Start 03/03/20 at 21:00 Ergocalciferol (Vitamin D2) 50,000 unit Mo PO ; Start 03/06/20 at 09:00 Hydralazine HCl (Apresoline) 25 mg BID PO Last administered on 03/04/20at 10:54; Start 03/03/20 at 21:00 Losartan Potassium (Cozaar) 25 mg BID PO Last administered on 03/04/20at 10:54; Start 03/03/20 at 21:00 Ziprasidone (Geodon) 20 mg HS PO Last administered on 03/03/20at 21:11; Start 03/03/20 at 21:00 Sodium Chloride (Normal Saline Flush) 3 ml QSHIFT PRN IV AFTER MEDS AND BLOOD DRAWS; Start 03/03/20 at 20:30 Ondansetron HCl (Zofran) 4 mg PRN Q4HRS PRN IV NAUSEA/VOMITING; Start 03/03/20 at 20:30 Acetaminophen (Tylenol) 650 mg PRN Q4HRS PRN PO TEMP OVER 100.4F OR MILD PAIN; Start 03/03/20 at 20:30 Docusate Sodium (Colace) 100 mg PRN BID PRN PO HARD STOOLS; Start 03/03/20 at 20:30 Albuterol Sulfate (Ventolin Neb Soln) 2.5 mg PRN Q4HRS PRN NEB SHORTNESS OF BREATH; Start 03/03/20 at 20:30 Guaifenesin (Robitussin) 200 mg PRN Q4HRS PRN PO COUGH; Start 03/03/20 at 20:30 Lorazepam (Ativan) 0.5 mg PRN Q4HRS PRN PO ANXIETY / AGITATION; Start 03/03/20 at 20:30 Active Scripts Active Reported Vitamin D2 (Ergocalciferol (Vitamin D2)) 1,250 Mcg Capsule 1,250 Mcg PO WEEKLY Donepezil Hcl 5 Mg Tablet 5 Mg PO QHS Losartan Potassium 25 Mg Tablet 25 Mg PO BID Ziprasidone Hcl 20 Mg Capsule 20 Mg PO HS Hydralazine Hcl 25 Mg Tablet 1 Tab PO BID Allergies Allergies: Coded Allergies: Sulfa (Sulfonamide Antibiotics) (Verified Allergy, Severe, "Ashkan Ubaldo's disease", 08/13/15) ROS PSYCHOLOGICAL ROS: No: Hallucinations Eyes: No Loss of vision HEENT: No: Epistaxis Respiratory: No: Hemoptysis Cardiovascular: yes Chest Pain Gastrointestinal: No Vomiting Genitourinary: No Hematuria Neurological: No Seizures Skin: No Rash Physical Exam General: Alert, No acute distress HEENT: Atraumatic Lungs: Clear to auscultation Heart: Regular rate Abdomen: Soft Extremities: No edema Psych/Mental Status: Mood NL Vitals VITALS Vital Signs Date Time Temp Pulse Resp B/P (MAP) Pulse Ox O2 Delivery O2 Flow Rate FiO2 03/04/20 11:00 97.6 59 20 143/52 (82) 97 Room Air 97.6 Labs Labs Laboratory Tests Test 03/03/20 16:40 03/03/20 21:40 03/04/20 02:00 White Blood Count 3.9 x10^3/uL (4.0-11.0) Red Blood Count 4.51 x10^6/uL (3.50-5.40) Hemoglobin 12.5 g/dL (12.0-15.5) Hematocrit 38.4 % (36.0-47.0) Mean Corpuscular Volume 85 fL (79-100) Mean Corpuscular Hemoglobin 28 pg (25-35) Mean Corpuscular Hemoglobin Concent 33 g/dL (31-37) Red Cell Distribution Width 17.8 % (11.5-14.5) Platelet Count 184 x10^3/uL (140-400) Neutrophils (%) (Auto) 78 % (31-73) Lymphocytes (%) (Auto) 10 % (24-48) Monocytes (%) (Auto) 11 % (0-9) Eosinophils (%) (Auto) 0 % (0-3) Basophils (%) (Auto) 1 % (0-3) Neutrophils # (Auto) 3.0 x10^3/uL (1.8-7.7) Lymphocytes # (Auto) 0.4 x10^3/uL (1.0-4.8) Monocytes # (Auto) 0.4 x10^3/uL (0.0-1.1) Eosinophils # (Auto) 0.0 x10^3/uL (0.0-0.7) Basophils # (Auto) 0.0 x10^3/uL (0.0-0.2) Sodium Level 136 mmol/L (136-145) Potassium Level 4.2 mmol/L (3.5-5.1) Chloride Level 99 mmol/L (98-107) Carbon Dioxide Level 27 mmol/L (21-32) Anion Gap 10 (6-14) Blood Urea Nitrogen 32 mg/dL (7-20) Creatinine 4.3 mg/dL (0.6-1.0) Estimated GFR (Cockcroft-Gault) 11.9 BUN/Creatinine Ratio 7 (6-20) Glucose Level 108 mg/dL (70-99) Calcium Level 7.5 mg/dL (8.5-10.1) Magnesium Level 2.0 mg/dL (1.8-2.4) Total Bilirubin 0.6 mg/dL (0.2-1.0) Aspartate Amino Transf (AST/SGOT) 25 U/L (15-37) Alanine Aminotransferase (ALT/SGPT) 27 U/L (14-59) Alkaline Phosphatase 82 U/L (46-116) Troponin I Quantitative 0.076 ng/mL (0.000-0.055) 0.096 ng/mL (0.000-0.055) 0.103 ng/mL (0.000-0.055) Total Protein 6.7 g/dL (6.4-8.2) Albumin 3.5 g/dL (3.4-5.0) Albumin/Globulin Ratio 1.1 (1.0-1.7) Laboratory Tests Test 03/03/20 16:40 03/03/20 21:40 03/04/20 02:00 White Blood Count 3.9 x10^3/uL (4.0-11.0) Red Blood Count 4.51 x10^6/uL (3.50-5.40) Hemoglobin 12.5 g/dL (12.0-15.5) Hematocrit 38.4 % (36.0-47.0) Mean Corpuscular Volume 85 fL (79-100) Mean Corpuscular Hemoglobin 28 pg (25-35) Mean Corpuscular Hemoglobin Concent 33 g/dL (31-37) Red Cell Distribution Width 17.8 % (11.5-14.5) Platelet Count 184 x10^3/uL (140-400) Neutrophils (%) (Auto) 78 % (31-73) Lymphocytes (%) (Auto) 10 % (24-48) Monocytes (%) (Auto) 11 % (0-9) Eosinophils (%) (Auto) 0 % (0-3) Basophils (%) (Auto) 1 % (0-3) Neutrophils # (Auto) 3.0 x10^3/uL (1.8-7.7) Lymphocytes # (Auto) 0.4 x10^3/uL (1.0-4.8) Monocytes # (Auto) 0.4 x10^3/uL (0.0-1.1) Eosinophils # (Auto) 0.0 x10^3/uL (0.0-0.7) Basophils # (Auto) 0.0 x10^3/uL (0.0-0.2) Sodium Level 136 mmol/L (136-145) Potassium Level 4.2 mmol/L (3.5-5.1) Chloride Level 99 mmol/L (98-107) Carbon Dioxide Level 27 mmol/L (21-32) Anion Gap 10 (6-14) Blood Urea Nitrogen 32 mg/dL (7-20) Creatinine 4.3 mg/dL (0.6-1.0) Estimated GFR (Cockcroft-Gault) 11.9 BUN/Creatinine Ratio 7 (6-20) Glucose Level 108 mg/dL (70-99) Calcium Level 7.5 mg/dL (8.5-10.1) Magnesium Level 2.0 mg/dL (1.8-2.4) Total Bilirubin 0.6 mg/dL (0.2-1.0) Aspartate Amino Transf (AST/SGOT) 25 U/L (15-37) Alanine Aminotransferase (ALT/SGPT) 27 U/L (14-59) Alkaline Phosphatase 82 U/L (46-116) Troponin I Quantitative 0.076 ng/mL (0.000-0.055) 0.096 ng/mL (0.000-0.055) 0.103 ng/mL (0.000-0.055) Total Protein 6.7 g/dL (6.4-8.2) Albumin 3.5 g/dL (3.4-5.0) Albumin/Globulin Ratio 1.1 (1.0-1.7) Assessment/Plan Assessment/Plan 1. Chest pain with mixed features. Troponin level elevation could be demand ischemia but considering her multiple cardiovascular risk factors, cannot rule out significant coronary disease. She is currently chest pain-free. Plan for cardiac catheterization on Friday for more definitive evaluation. 2. Hypertension: Controlled 3. DM2: Per IM 4. End-stage renal disease on hemodialysis per nephrology team Thank you for your consultation GAYATHRI BALDWIN MD Mar 04, 2020 11:38
--- NOTE | 2020-03-04 12:35 | PDOC2 ---
CONSULT Date of Consult Date of Consult DATE: 03/04/20 TIME: 12:34 Reason for Consult Reason for Consult: ESRD History of Present Illness Reason for Visit: Patient is an 84-year-old female with past medical history of type 2 diabetes hypertension end-stage renal disease on hemodialysis who was in her usual state of health until the day of dialysis when while receiving her treatment she c omplained of chest discomfort that lasted less than 5 minutes no sensation of impending doom no nausea no diaphoresis no palpitations no shortness of breath associated with the pain. Patient denies radiation to the jaw to the arm or to the back. Currently denies any complaints . No CP or SOB. No N/V/D. Her troponin was mildly elevated in the ER admitted for cardiology evalua tion. Past Medical History Cardiovascular: HTN Heme/Onc: Anemia NOS Renal/: Chronic renal insuff Past Surgical History Past Surgical History: Other Family History Family History: Hypertension Social History ALCOHOL: none Drugs: None Lives: with Family Current Problem List Problem List Problems Medical Problems: (1) Chest pain Status: Acute (2) Elevated troponin Status: Acute Current Medications Current Medications Current Medications Aspirin (Aspirin Chewable) 324 mg 1X ONCE PO Last administered on 03/03/20at 16:33; Start 03/03/20 at 16:45; Stop 03/03/20 at 16:46; Status DC Donepezil HCl (Aricept) 5 mg QHS PO Last administered on 03/03/20at 21:11; Start 03/03/20 at 21:00 Ergocalciferol (Vitamin D2) 50,000 unit Mo PO ; Start 03/06/20 at 09:00 Hydralazine HCl (Apresoline) 25 mg BID PO Last administered on 03/04/20at 10:54; Start 03/03/20 at 21:00 Losartan Potassium (Cozaar) 25 mg BID PO Last administered on 03/04/20at 10:54; Start 03/03/20 at 21:00 Ziprasidone (Geodon) 20 mg HS PO Last administered on 03/03/20at 21:11; Start 03/03/20 at 21:00 Sodium Chloride (Normal Saline Flush) 3 ml QSHIFT PRN IV AFTER MEDS AND BLOOD DRAWS; Start 03/03/20 at 20:30 Ondansetron HCl (Zofran) 4 mg PRN Q4HRS PRN IV NAUSEA/VOMITING; Start 03/03/20 at 20:30 Acetaminophen (Tylenol) 650 mg PRN Q4HRS PRN PO TEMP OVER 100.4F OR MILD PAIN; Start 03/03/20 at 20:30 Docusate Sodium (Colace) 100 mg PRN BID PRN PO HARD STOOLS; Start 03/03/20 at 20:30 Albuterol Sulfate (Ventolin Neb Soln) 2.5 mg PRN Q4HRS PRN NEB SHORTNESS OF BREATH; Start 03/03/20 at 20:30 Guaifenesin (Robitussin) 200 mg PRN Q4HRS PRN PO COUGH; Start 03/03/20 at 20:30 Lorazepam (Ativan) 0.5 mg PRN Q4HRS PRN PO ANXIETY / AGITATION; Start 03/03/20 at 20:30 Active Scripts Active Reported Vitamin D2 (Ergocalciferol (Vitamin D2)) 1,250 Mcg Capsule 1,250 Mcg PO WEEKLY Donepezil Hcl 5 Mg Tablet 5 Mg PO QHS Losartan Potassium 25 Mg Tablet 25 Mg PO BID Ziprasidone Hcl 20 Mg Capsule 20 Mg PO HS Hydralazine Hcl 25 Mg Tablet 1 Tab PO BID Allergies Allergies: Coded Allergies: Sulfa (Sulfonamide Antibiotics) (Verified Allergy, Severe, "Ashkan Ubaldo's disease", 08/13/15) ROS Review of System As per HPI, rest of ROS is negative Physical Exam Physical Exam GEN.: No apparent distress. Alert and oriented. HEENT: Head is normocephalic, atraumatic NECK: Supple. LUNGS: Clear to auscultation. HEART: RRR, S1, S2 present. Peripheral pulses intact ABDOMEN: Soft, nontender. Positive bowel sounds. EXTREMITIES: Without any cyanosis. NEUROLOGIC: Normal speech, normal tone PSYCHIATRIC: Normal affect, normal mood. SKIN: No ulcerations No Alvarado, No CVA or SP tenderness Vital Signs Vital Signs Date Time Temp Pulse Resp B/P (MAP) Pulse Ox O2 Delivery O2 Flow Rate FiO2 03/04/20 11:00 97.6 59 20 143/52 (82) 97 Room Air 97.6 Assessment & Plan ESRD - On HD MWF Last HD yesterday, currently no indication for HD Chest pain - per cardiology Troponin level elevation could be demand ischemia but considering her multiple cardiovascular risk factors, cannot rule out significant coronary disease. Plan for cardiac catheterization on Friday for more definitive evaluation. Hypertension: Controlled DM2: Per IM Labs Labs Laboratory Tests Test 03/03/20 16:40 03/03/20 21:40 03/04/20 02:00 White Blood Count 3.9 x10^3/uL (4.0-11.0) Red Blood Count 4.51 x10^6/uL (3.50-5.40) Hemoglobin 12.5 g/dL (12.0-15.5) Hematocrit 38.4 % (36.0-47.0) Mean Corpuscular Volume 85 fL (79-100) Mean Corpuscular Hemoglobin 28 pg (25-35) Mean Corpuscular Hemoglobin Concent 33 g/dL (31-37) Red Cell Distribution Width 17.8 % (11.5-14.5) Platelet Count 184 x10^3/uL (140-400) Neutrophils (%) (Auto) 78 % (31-73) Lymphocytes (%) (Auto) 10 % (24-48) Monocytes (%) (Auto) 11 % (0-9) Eosinophils (%) (Auto) 0 % (0-3) Basophils (%) (Auto) 1 % (0-3) Neutrophils # (Auto) 3.0 x10^3/uL (1.8-7.7) Lymphocytes # (Auto) 0.4 x10^3/uL (1.0-4.8) Monocytes # (Auto) 0.4 x10^3/uL (0.0-1.1) Eosinophils # (Auto) 0.0 x10^3/uL (0.0-0.7) Basophils # (Auto) 0.0 x10^3/uL (0.0-0.2) Sodium Level 136 mmol/L (136-145) Potassium Level 4.2 mmol/L (3.5-5.1) Chloride Level 99 mmol/L (98-107) Carbon Dioxide Level 27 mmol/L (21-32) Anion Gap 10 (6-14) Blood Urea Nitrogen 32 mg/dL (7-20) Creatinine 4.3 mg/dL (0.6-1.0) Estimated GFR (Cockcroft-Gault) 11.9 BUN/Creatinine Ratio 7 (6-20) Glucose Level 108 mg/dL (70-99) Calcium Level 7.5 mg/dL (8.5-10.1) Magnesium Level 2.0 mg/dL (1.8-2.4) Total Bilirubin 0.6 mg/dL (0.2-1.0) Aspartate Amino Transf (AST/SGOT) 25 U/L (15-37) Alanine Aminotransferase (ALT/SGPT) 27 U/L (14-59) Alkaline Phosphatase 82 U/L (46-116) Troponin I Quantitative 0.076 ng/mL (0.000-0.055) 0.096 ng/mL (0.000-0.055) 0.103 ng/mL (0.000-0.055) Total Protein 6.7 g/dL (6.4-8.2) Albumin 3.5 g/dL (3.4-5.0) Albumin/Globulin Ratio 1.1 (1.0-1.7) Laboratory Tests Test 03/03/20 16:40 03/03/20 21:40 03/04/20 02:00 White Blood Count 3.9 x10^3/uL (4.0-11.0) Red Blood Count 4.51 x10^6/uL (3.50-5.40) Hemoglobin 12.5 g/dL (12.0-15.5) Hematocrit 38.4 % (36.0-47.0) Mean Corpuscular Volume 85 fL (79-100) Mean Corpuscular Hemoglobin 28 pg (25-35) Mean Corpuscular Hemoglobin Concent 33 g/dL (31-37) Red Cell Distribution Width 17.8 % (11.5-14.5) Platelet Count 184 x10^3/uL (140-400) Neutrophils (%) (Auto) 78 % (31-73) Lymphocytes (%) (Auto) 10 % (24-48) Monocytes (%) (Auto) 11 % (0-9) Eosinophils (%) (Auto) 0 % (0-3) Basophils (%) (Auto) 1 % (0-3) Neutrophils # (Auto) 3.0 x10^3/uL (1.8-7.7) Lymphocytes # (Auto) 0.4 x10^3/uL (1.0-4.8) Monocytes # (Auto) 0.4 x10^3/uL (0.0-1.1) Eosinophils # (Auto) 0.0 x10^3/uL (0.0-0.7) Basophils # (Auto) 0.0 x10^3/uL (0.0-0.2) Sodium Level 136 mmol/L (136-145) Potassium Level 4.2 mmol/L (3.5-5.1) Chloride Level 99 mmol/L (98-107) Carbon Dioxide Level 27 mmol/L (21-32) Anion Gap 10 (6-14) Blood Urea Nitrogen 32 mg/dL (7-20) Creatinine 4.3 mg/dL (0.6-1.0) Estimated GFR (Cockcroft-Gault) 11.9 BUN/Creatinine Ratio 7 (6-20) Glucose Level 108 mg/dL (70-99) Calcium Level 7.5 mg/dL (8.5-10.1) Magnesium Level 2.0 mg/dL (1.8-2.4) Total Bilirubin 0.6 mg/dL (0.2-1.0) Aspartate Amino Transf (AST/SGOT) 25 U/L (15-37) Alanine Aminotransferase (ALT/SGPT) 27 U/L (14-59) Alkaline Phosphatase 82 U/L (46-116) Troponin I Quantitative 0.076 ng/mL (0.000-0.055) 0.096 ng/mL (0.000-0.055) 0.103 ng/mL (0.000-0.055) Total Protein 6.7 g/dL (6.4-8.2) Albumin 3.5 g/dL (3.4-5.0) Albumin/Globulin Ratio 1.1 (1.0-1.7) Review All relevant outside records, renal labs, imaging studies, telemetry/EKG's were reviewed. Images Images CxR-- : Borderline pulmonary arterial vasculature congestion. Minimal pleural effusions suspected. No focal infiltrate. SALVADOR KOWALSKI MD Mar 04, 2020 12:35
[2020-03-04 15:00] VITALS: BP 131/50
[2020-03-04 19:30] VITALS: BP 168/45
[2020-03-04] MEDS: ZIPRASIDONE 20 MG CAPSULE PO SCH (21:08)
[2020-03-04] MEDS: DONEPEZIL HCL 5 MG TABLET. PO SCH (21:09)
[2020-03-04 22:45] VITALS: BP 167/72
[2020-03-04] MEDS: LORazepam 0.5 MG TABLET PO PRN (23:47)
[2020-03-05 03:55] VITALS: BP 162/50
[2020-03-05 07:00] VITALS: BP 145/45
[2020-03-05] MEDS: LOSARTAN POTASSIUM 25 MG TABLET. PO SCH ×2 (09:33→20:05)
[2020-03-05] MEDS: LORazepam 0.5 MG TABLET PO PRN ×2 (09:34→20:06)
[2020-03-05] MEDS: hydrALAZINE 25 MG TABLET PO SCH ×2 (09:34→20:06)
[2020-03-05 11:00] VITALS: BP 144/51
--- NOTE | 2020-03-05 12:49 | PDOC ---
PROGRESS NOTES Subjective Subjective Somnolent from lack of sleep last night but denied any chest pain Objective Objective Vital Signs Date Time Temp Pulse Resp B/P (MAP) Pulse Ox O2 Delivery O2 Flow Rate FiO2 03/05/20 11:00 98.0 68 18 144/51 (82) 93 Room Air 98.0 Intake and Output 03/05/20 07:00 Intake Total 970 ml Balance 970 ml Intake Oral 970 ml # Voids 3 Physical Exam Abdomen: Soft Heart: Regular rate Extremities: No edema General: Alert, No acute distress HEENT: Atraumatic Lungs: Clear to auscultation MUSCULOSKELETAL: No deformity, No swelling Psych/Mental Status: Mood NL Assessment Assessment 1. Chest pain with mixed features. Troponin level elevation could be demand ischemia but considering her multiple cardiovascular risk factors, cannot rule out significant coronary disease. She is currently chest pain-free. Plan for cardiac catheterization on Friday for more definitive evaluation. 2. Hypertension: Controlled 3. DM2: Per IM 4. End-stage renal disease on hemodialysis per nephrology team Plan Plan of Care Problems Medical Problems: (1) Chest pain Status: Acute (2) Elevated troponin Status: Acute Comment Review of Relevant I have reviewed the following items rose (where applicable) has been applied. Medications Current Medications Ergocalciferol (Vitamin D2) 50,000 unit Mo PO ; Start 03/06/20 at 09:00 Vitals/I & O Vital Sign - Last 24 Hours 03/04/20 03/04/20 03/04/20 03/04/20 15:00 19:30 20:00 21:09 Temp 97.9 97.9 97.9 97.9 Pulse 64 52 52 Resp 20 18 B/P (MAP) 131/50 (77) 168/45 (86) 168/45 Pulse Ox 98 99 O2 Delivery Room Air Room Air Room Air 03/04/20 03/04/20 03/05/20 03/05/20 21:09 22:45 03:55 07:00 Temp 97.8 98.0 97.7 97.8 98.0 97.7 Pulse 52 57 69 65 Resp 20 18 18 B/P (MAP) 168/45 167/72 (103) 162/50 (87) 145/45 (78) Pulse Ox 99 98 98 O2 Delivery Room Air Room Air Room Air 03/05/20 03/05/20 03/05/2026/20 07:43 09:33 09:34 11:00 Temp 98.0 98.0 Pulse 65 65 68 Resp 18 B/P (MAP) 145/45 145/45 144/51 (82) Pulse Ox 93 O2 Delivery Room Air Room Air Intake and Output 03/04/20 03/04/20 03/05/20 15:00 23:00 07:00 Intake Total 200 ml 400 ml 370 ml Balance 200 ml 400 ml 370 ml GAYATHRI BALDWIN MD Mar 05, 2020 12:49
--- NOTE | 2020-03-05 13:20 | PDOC ---
PROGRESS NOTES Chief Complaint Chief Complaint Chest pain ruled out ACS, still concerning for coronary disease cardiology consultation noted and greatly appreciated Essential hypertension fairly controlled End-stage renal disease on hemodialysis per schedule seems to be Friday Diabetes mellitus type 2 insulin requiring Plan Plan for cardiac cath in the a.m. home medications Further recommendations based on the clinical course DVT prophylaxis with heparin History of Present Illness History of Present Illness No acute events reported overnight, case discussed with nursing staff patient in no acute distress no complaints during my visit Vitals Vitals Vital Signs Date Time Temp Pulse Resp B/P (MAP) Pulse Ox O2 Delivery O2 Flow Rate FiO2 03/05/20 11:00 98.0 68 18 144/51 (82) 93 Room Air 98.0 Physical Exam Physical Exam GEN.: No apparent distress. Alert and oriented. HEENT: Head is normocephalic, atraumatic NECK: Supple. LUNGS: Clear to auscultation. HEART: RRR, S1, S2 present. Peripheral pulses intact ABDOMEN: Soft, nontender. Positive bowel sounds. EXTREMITIES: Without any cyanosis. NEUROLOGIC: Normal speech, normal tone PSYCHIATRIC: Normal affect, normal mood. SKIN: No ulceration General: Alert, No acute distress Heart: Regular rate Abdomen: Soft Extremities: No edema Review of Systems Review of Systems Pertinent as per HPI otherwise 10 point review of system is negative Assessment and Plan Assessmemt and Plan Problems Medical Problems: (1) Chest pain Status: Acute (2) Elevated troponin Status: Acute Comment Review of Relevant I have reviewed the following items rose (where applicable) has been applied. Labs Laboratory Tests Test 03/03/20 16:40 03/03/20 21:40 03/04/20 02:00 White Blood Count 3.9 x10^3/uL (4.0-11.0) Red Blood Count 4.51 x10^6/uL (3.50-5.40) Hemoglobin 12.5 g/dL (12.0-15.5) Hematocrit 38.4 % (36.0-47.0) Mean Corpuscular Volume 85 fL (79-100) Mean Corpuscular Hemoglobin 28 pg (25-35) Mean Corpuscular Hemoglobin Concent 33 g/dL (31-37) Red Cell Distribution Width 17.8 % (11.5-14.5) Platelet Count 184 x10^3/uL (140-400) Neutrophils (%) (Auto) 78 % (31-73) Lymphocytes (%) (Auto) 10 % (24-48) Monocytes (%) (Auto) 11 % (0-9) Eosinophils (%) (Auto) 0 % (0-3) Basophils (%) (Auto) 1 % (0-3) Neutrophils # (Auto) 3.0 x10^3/uL (1.8-7.7) Lymphocytes # (Auto) 0.4 x10^3/uL (1.0-4.8) Monocytes # (Auto) 0.4 x10^3/uL (0.0-1.1) Eosinophils # (Auto) 0.0 x10^3/uL (0.0-0.7) Basophils # (Auto) 0.0 x10^3/uL (0.0-0.2) Sodium Level 136 mmol/L (136-145) Potassium Level 4.2 mmol/L (3.5-5.1) Chloride Level 99 mmol/L (98-107) Carbon Dioxide Level 27 mmol/L (21-32) Anion Gap 10 (6-14) Blood Urea Nitrogen 32 mg/dL (7-20) Creatinine 4.3 mg/dL (0.6-1.0) Estimated GFR (Cockcroft-Gault) 11.9 BUN/Creatinine Ratio 7 (6-20) Glucose Level 108 mg/dL (70-99) Calcium Level 7.5 mg/dL (8.5-10.1) Magnesium Level 2.0 mg/dL (1.8-2.4) Total Bilirubin 0.6 mg/dL (0.2-1.0) Aspartate Amino Transf (AST/SGOT) 25 U/L (15-37) Alanine Aminotransferase (ALT/SGPT) 27 U/L (14-59) Alkaline Phosphatase 82 U/L (46-116) Troponin I Quantitative 0.076 ng/mL (0.000-0.055) 0.096 ng/mL (0.000-0.055) 0.103 ng/mL (0.000-0.055) Total Protein 6.7 g/dL (6.4-8.2) Albumin 3.5 g/dL (3.4-5.0) Albumin/Globulin Ratio 1.1 (1.0-1.7) Medications Current Medications Aspirin (Aspirin Chewable) 324 mg 1X ONCE PO Last administered on 03/03/20at 16:33; Start 03/03/20 at 16:45; Stop 03/03/20 at 16:46; Status DC Donepezil HCl (Aricept) 5 mg QHS PO Last administered on 03/04/20at 21:09; Start 03/03/20 at 21:00 Ergocalciferol (Vitamin D2) 50,000 unit Mo PO ; Start 03/06/20 at 09:00 Hydralazine HCl (Apresoline) 25 mg BID PO Last administered on 03/05/20at 09:34; Start 03/03/20 at 21:00 Losartan Potassium (Cozaar) 25 mg BID PO Last administered on 03/05/20at 09:33; Start 03/03/20 at 21:00 Ziprasidone (Geodon) 20 mg HS PO Last administered on 03/04/20at 21:08; Start 03/03/20 at 21:00 Sodium Chloride (Normal Saline Flush) 3 ml QSHIFT PRN IV AFTER MEDS AND BLOOD DRAWS; Start 03/03/20 at 20:30 Ondansetron HCl (Zofran) 4 mg PRN Q4HRS PRN IV NAUSEA/VOMITING; Start 03/03/20 at 20:30 Acetaminophen (Tylenol) 650 mg PRN Q4HRS PRN PO TEMP OVER 100.4F OR MILD PAIN; Start 03/03/20 at 20:30 Docusate Sodium (Colace) 100 mg PRN BID PRN PO HARD STOOLS; Start 03/03/20 at 20:30 Albuterol Sulfate (Ventolin Neb Soln) 2.5 mg PRN Q4HRS PRN NEB SHORTNESS OF BREATH; Start 03/03/20 at 20:30 Guaifenesin (Robitussin) 200 mg PRN Q4HRS PRN PO COUGH; Start 03/03/20 at 20:30 Lorazepam (Ativan) 0.5 mg PRN Q4HRS PRN PO ANXIETY / AGITATION Last administered on 03/05/20at 09:34; Start 03/03/20 at 20:30 Active Scripts Active Reported Vitamin D2 (Ergocalciferol (Vitamin D2)) 1,250 Mcg Capsule 1,250 Mcg PO WEEKLY Donepezil Hcl 5 Mg Tablet 5 Mg PO QHS Losartan Potassium 25 Mg Tablet 25 Mg PO BID Ziprasidone Hcl 20 Mg Capsule 20 Mg PO HS Hydralazine Hcl 25 Mg Tablet 1 Tab PO BID Vitals/I & O Vital Sign - Last 24 Hours 03/04/20 03/04/20 03/04/20 03/04/20 15:00 19:30 20:00 21:09 Temp 97.9 97.9 97.9 97.9 Pulse 64 52 52 Resp 20 18 B/P (MAP) 131/50 (77) 168/45 (86) 168/45 Pulse Ox 98 99 O2 Delivery Room Air Room Air Room Air 03/04/20 03/04/20 03/05/20 03/05/20 21:09 22:45 03:55 07:00 Temp 97.8 98.0 97.7 97.8 98.0 97.7 Pulse 52 57 69 65 Resp 20 18 18 B/P (MAP) 168/45 167/72 (103) 162/50 (87) 145/45 (78) Pulse Ox 99 98 98 O2 Delivery Room Air Room Air Room Air 03/05/20 03/05/20 03/05/20 03/05/20 07:43 09:33 09:34 11:00 Temp 98.0 98.0 Pulse 65 65 68 Resp 18 B/P (MAP) 145/45 145/45 144/51 (82) Pulse Ox 93 O2 Delivery Room Air Room Air Intake and Output 03/04/20 03/04/20 03/05/20 15:00 23:00 07:00 Intake Total 200 ml 400 ml 370 ml Balance 200 ml 400 ml 370 ml Justicifation of Admission Dx: Justifications for Admission: Justification of Admission Dx: N/A RUSSELL ESCALERA MD Mar 05, 2020 13:20
--- NOTE | 2020-03-05 14:10 | PDOC ---
SUBJECTIVE ROS Stable OBJECTIVE Vital Signs Vital Signs Date Time Temp Pulse Resp B/P (MAP) Pulse Ox O2 Delivery O2 Flow Rate FiO2 03/05/20 11:00 98.0 68 18 144/51 (82) 93 Room Air 98.0 I & 0 Intake and Output 03/05/20 07:00 Intake Total 970 ml Balance 970 ml Intake Oral 970 ml # Voids 3 PHYSICAL EXAM Physical Exam Physical Exam GEN.: No apparent distress. Alert and oriented. HEENT: Head is normocephalic, atraumatic NECK: Supple. LUNGS: Clear to auscultation. HEART: RRR, S1, S2 present. Peripheral pulses intact ABDOMEN: Soft, nontender. Positive bowel sounds. EXTREMITIES: Without any cyanosis. NEUROLOGIC: Normal speech, normal tone PSYCHIATRIC: Normal affect, normal mood. SKIN: No ulcerations No Alvar[place], No CVA or SP tenderness Vital Signs ESRD - On HD MWF Last HD friday currently no indication for HD Chest pain - per cardiology Troponin level elevation could be demand ischemia but considering her multiple cardiovascular risk factors, cannot rule out significant coronary disease. Plan for cardiac catheterization on Friday for more definitive evaluation. Hypertension: Controlled DM2: Per IM DIAGNOSIS/ASSESSMENT Assessment & Plan ESRD/ARF: Current fluid and E-lyte status does not necessitate emergent need for dialysis. Will re-evaluate for dialysis in the am and continue on [] schedule. ANEMIA; [] Aranap as ordered, [] Transfuse [] with next HD as needed HTN: Current BP meds as reviewed. See orders for changes. BONE & MINERAL: [] Discussed Plan of Care with family [] at bedside [] over the phone COMMENT/RELEVANT DATA Meds Current Medications Medications (Trade) Dose Ordered Sig/Diana Start Time Stop Time Status Last Admin Dose Admin Acetaminophen (Tylenol) 650 mg PRN Q4HRS PRN 03/03/20 20:30 Albuterol Sulfate (Ventolin Neb Soln) 2.5 mg PRN Q4HRS PRN 03/03/20 20:30 Aspirin (Aspirin Chewable) 324 mg 1X ONCE 03/03/20 16:45 03/03/20 16:46 DC 03/03/20 16:33 324 MG Docusate Sodium (Colace) 100 mg PRN BID PRN 03/03/20 20:30 Donepezil HCl (Aricept) 5 mg QHS 03/03/20 21:00 03/04/20 21:09 5 MG Ergocalciferol (Vitamin D2) 50,000 unit Mo 03/06/20 09:00 Guaifenesin (Robitussin) 200 mg PRN Q4HRS PRN 03/03/20 20:30 Hydralazine HCl (Apresoline) 25 mg BID 03/03/20 21:00 03/05/20 09:34 25 MG Lorazepam (Ativan) 0.5 mg PRN Q4HRS PRN 03/03/20 20:30 03/05/20 09:34 0.5 MG Losartan Potassium (Cozaar) 25 mg BID 03/03/20 21:00 03/05/20 09:33 25 MG Ondansetron HCl (Zofran) 4 mg PRN Q4HRS PRN 03/03/20 20:30 Sodium Chloride (Normal Saline Flush) 3 ml QSHIFT PRN 03/03/20 20:30 Ziprasidone (Geodon) 20 mg HS 03/03/20 21:00 03/04/20 21:08 20 MG Results All relevant outside records, renal labs, imaging studies, telemetry/EKG's were reviewed. Justicifation of Admission Dx: Justifications for Admission: Justification of Admission Dx: N/A SALVADOR KOWALSKI MD Mar 05, 2020 14:10
[2020-03-05 15:00] VITALS: BP 137/56
[2020-03-05 19:35] VITALS: BP 175/59
[2020-03-05] MEDS: DONEPEZIL HCL 5 MG TABLET. PO SCH (20:05)
[2020-03-05] MEDS: ZIPRASIDONE 20 MG CAPSULE PO SCH (20:06)
[2020-03-05 22:40] VITALS: BP 149/56
[2020-03-06] VITALS (13 sets, daily range): BP systolic 110–175; BP diastolic 44–76
[2020-03-06 05:03] LABS: CALCIUM 6.7 mg/dL (8.5-10.1); CREATININE 7.1 mg/dL (0.6-1.0); GFR 6.7; POTASSIUM 5.8 mmol/L (3.5-5.1)
[2020-03-06] MEDS: LOSARTAN POTASSIUM 25 MG TABLET. PO SCH ×2 (08:16→21:25)
[2020-03-06] MEDS: hydrALAZINE 25 MG TABLET PO SCH ×2 (08:17→21:24)
[2020-03-06] MEDS ORDERED: ERGOCALCIFEROL (VITAMIN D2) 50,000 UNIT CAPSULE. PO SCH (09:00)
[2020-03-06] MEDS ORDERED: LIDOCAINE 1% PF 2 ML VIAL. ONE (10:16)
[2020-03-06] MEDS ORDERED: MIDAZOLAM HCL/PF 2 MG/2 ML VIAL. ONE (10:36)
[2020-03-06] MEDS ORDERED: fentaNYL PF VIAL 100 MCG/2 ML VIAL ONE (10:36)
[2020-03-06] MEDS ORDERED: IODIXANOL 320 MG/ML 100 ML VIAL. ONE (10:38)
--- NOTE | 2020-03-06 10:39 | PDOC ---
MODERATE SEDATION ASSESSMENT RISKS/ALTERNATIVES Risks/Alternatives Risks and alternatives of this type of sedation and procedure discussed with: RISK/ALTERNATIVES: Patient H & P ON CHART H & P H & P on chart and reviewed for co-morbid conditions and appropriate labs. H&P ON CHART: Yes STATUS PREG STATUS ASSESSED: N/A MEDS/ALLERGIES REVIEWED Meds/Allergies Reviewed Medications and Allergies including time and route of recently administered narcotics and sedatives. MEDS/ALLERGIES REVIEWED: Yes ASA RATING ASA RATING: III AIRWAY ASSESSMENT Airway Assessment Airway patency, oral function limitations, presence of caps, crowns, dentures, partials, and ability to extend neck assessed. AIRWAY ASSESSMENT: Yes MALLAMPATI SCORE MALLAMPATI SCORE: II PRE-SEDATION ASSESSMENT PRE-SEDATION ASSESSMENT: Yes GAYATHRI BALDWIN MD Mar 06, 2020 10:39
[2020-03-06] MEDS ORDERED: HEPARIN for IV BOLUS 10,000 UNIT/10 ML VIAL. ONE (10:41)
[2020-03-06] MEDS ORDERED: NITROGLYCERIN 200 MCG/2 ML SYRINGE FOR CATH/VASC LAB. ONE (10:41)
[2020-03-06] MEDS ORDERED: VERAPAMIL 5 MG/2 ML VIAL. ONE (10:41)
[2020-03-06] MEDS ORDERED: LIDOCAINE 1% PF 2 ML VIAL. INJ ONE (11:00)
[2020-03-06] MEDS ORDERED: CONTRAST GIVEN. MC PRN (11:00)
[2020-03-06] MEDS ORDERED: VERAPAMIL 5 MG/2 ML VIAL. IART ONE (11:00)
[2020-03-06] MEDS ORDERED: HEPARIN for IV BOLUS 10,000 UNIT/10 ML VIAL. IART ONE (11:00)
[2020-03-06] MEDS ORDERED: NITROGLYCERIN 200 MCG/2 ML SYRINGE FOR CATH/VASC LAB. IART ONE (11:00)
[2020-03-06] MEDS ORDERED: MIDAZOLAM HCL/PF 2 MG/2 ML VIAL. IV ONE (11:00)
[2020-03-06] MEDS ORDERED: fentaNYL PF VIAL 100 MCG/2 ML VIAL IV ONE (11:00)
[2020-03-06] MEDS ORDERED: IODIXANOL 320 MG/ML 100 ML VIAL. IART ONE (11:00)
[2020-03-06] MEDS ORDERED: IV NORMAL SALINE 1000ML BAG 1,000 ML IV PRN ×2 (11:25)
[2020-03-06] MEDS ORDERED: diphenhydrAMINE 50 MG/ML VIAL IV PRN ×2 (11:30)
[2020-03-06] MEDS ORDERED: DIALYSIS PATIENT. MC PRN (11:30)
--- NOTE | 2020-03-06 11:32 | CARD ---
MR#: [id number] Date of Study: 03/06/2020 Ordering Physician: GAYATHRI BALDWIN, Referring Physician: GAYATHRI BALDWIN, Tech: GAMA ALBARRAN RTR APPROVED REPORT Technologist: GAMA ALBARRAN RTR Nurse: SLIM WHITE RN Procedure(s) performed: Left heart catheterization, selective coronary angiography and left ventricul ography via right transradial approach MODERATE SEDATION TIME: 20 MINS FLUORO TIME: 2.8 MIN DOSE: 34 GYCM2 CONTRAST: 74 ML INDICATION The indication(s) include : non-STEMI . CSHA Clinical Frailty Scale [facility] Clinical Frailty Scale: Moderately Frail Heart Failure Heart Failure: No PROCEDURE NARRATIVE After explaining the risks, benefits and alternative options, informed consent was obtained from dami ent. Patient was brought to the cardiac Lead Technical Writer and right wrist was prepped and draped in the usual fashion after confirming a positive modified Magdi's test. Arterial access was obtained in the [facility] t radial artery and a 6 [place] sheath was inserted. 6 [place] Pete catheter was used to perform melba ective angiography of the left and right coronary arteries. 6 [place] pigtail catheter was used to pe rform left ventriculography. Patient tolerated the procedure well. Hemostasis was achieved using TR band. There were no immediate complications. The following findings were noted. FINDINGS 1. Hemodynamics: Left ventricular end-diastolic pressure of 21 mmHg. No pullback gradient across th e aortic valve. 2. Left ventriculography: Hyperdynamic left ventricle systolic function with ejection fraction estim ated at 80%. No significant mitral regurgitation seen. 3. Coronary angiography: a. The left main coronary artery arose from the left sinus of Valsalva, gave rise to the left anteri or descending and left circumflex arteries and did not show any significant stenosis. b. The left anterior descending artery did not show any significant stenosis. c. The left circumflex artery did not show any significant stenosis. d. The right coronary artery was a dominant vessel arising from the right sinus of Valsalva that did not show any significant stenosis. Conclusion 1. No significant coronary disease 2. Hyperdynamic left ventricle systolic function with ejection fraction estimated at 80%. Recommendations Patient's non-STEMI is most probably type II/demand ischemia. Continue medical management. Signed by : Gayathri Baldwin, Electronically Approved : 03/06/2020 11:31:28
--- NOTE | 2020-03-06 12:31 | PDOC ---
Renal-Progress Notes Subjective Notes Notes NO NEW COMPLAINTS History of Present Illness Hx of present illness STABLE Vitals Vitals Vital Signs Date Time Temp Pulse Resp B/P (MAP) Pulse Ox O2 Delivery O2 Flow Rate FiO2 03/06/20 11:30 97.4 67 20 119/52 (74) 100 Room Air 97.4 03/06/20 11:00 2.0 Weight Weight [ ] I.O. Intake and Output Intake and Output 03/06/20 07:00 Intake Total 860 ml Balance 860 ml Intake Oral 860 ml # Voids 3 Labs Labs Laboratory Tests Test 03/06/20 03:40 Sodium Level 133 mmol/L (136-145) Potassium Level 5.8 mmol/L (3.5-5.1) Chloride Level 99 mmol/L (98-107) Carbon Dioxide Level 23 mmol/L (21-32) Anion Gap 11 (6-14) Blood Urea Nitrogen 64 mg/dL (7-20) Creatinine 7.1 mg/dL (0.6-1.0) Estimated GFR (Cockcroft-Gault) 6.7 Glucose Level 90 mg/dL (70-99) Calcium Level 6.7 mg/dL (8.5-10.1) Review of Systems Constitutional: yes: alert, oriented Ears/Nose/Throat: Yes: no symptom reported Eyes: Yes: no symptom reported Pulmonary: Yes no symptom reported Cardiovascular: Yes chest pain Gastrointestional: Yes: no symptom reported Genitourinary: Yes: no symptom reported Musculoskeletal: Yes: muscle stiffness Skin: Yes no symptom reported Psychiatric/Neurological: Yes: no symptom reported Endocrine: Yes: no symptom reported Physical Exam General Appearance: no apparent distress Skin: warm Respiratory: bilateral CTA Heart: S1S2 Abdomen: soft, bowel sounds present Genitourinary: bladder flat Extremities: pulses present Neurology: alert Assessment Assessment IMP CHEST PAIN ESRD ANEMIA DM II HTN PLAN HEART CATH TODAY HD TODAY UF TO DW HOLD MAURO PAPPAS MD Mar 06, 2020 12:31
--- NOTE | 2020-03-06 12:50 | NUR ---
SS following for discharge planning. SS reviewed pt chart and discussed with pt RN. Pt is from home and is currently on room air. Pt has outpatient dialysis set up at [facility], ; fax [phone], Friday, Friday, and Friday at 1130. SS contacted [facility] and was notified that COVID19 test is not required for return to dialysis. SS will continue to follow for discharge planning.
--- NOTE | 2020-03-06 15:15 | PDOC ---
[facility] PROGRESS NOTE Chief Complaint Chief Complaint Chest pain ruled out ACS, still concerning for coronary disease cardiology consultation noted and greatly appreciated Essential hypertension fairly controlled End-stage renal disease on hemodialysis per schedule seems to be Friday Diabetes mellitus type 2 insulin requiring Plan Left heart cath completed today without any interventions home medications Further recommendations based on the clinical course DVT prophylaxis with heparin SCD and ambulation for DVT prophylaxis Cardiac diet Full code Discussed with RN and SW Dispo: PT OT and pending SNF placement History of Present Illness History of Present Illness 03/06/2020 Patient seen and examined bedside today. Breakfast tray in front of her she is tolerating diet. She has recently returned from left heart cath. Pending PT OT and SNF placement Vitals/I&O Vitals/I&O: Vital Signs Date Time Temp Pulse Resp B/P (MAP) Pulse Ox O2 Delivery O2 Flow Rate FiO2 03/06/20 13:30 64 139/63 (88) 100 Room Air 03/06/20 11:30 97.4 20 97.4 03/06/20 11:00 2.0 I & O 03/05/20 03/05/20 03/06/20 15:00 23:00 07:00 Intake Total 380 ml 480 ml Balance 380 ml 480 ml Physical Exam Physical Exam: GEN.: No apparent distress. Alert and oriented. HEENT: Head is normocephalic, atraumatic NECK: Supple. LUNGS: Clear to auscultation. HEART: RRR, S1, S2 present. Peripheral pulses intact ABDOMEN: Soft, nontender. Positive bowel sounds. EXTREMITIES: Without any cyanosis. NEUROLOGIC: Normal speech, normal tone PSYCHIATRIC: Normal affect, normal mood. SKIN: No ulceration General: Alert, No acute distress Heart: Regular rate Abdomen: Soft Extremities: No edema Labs Labs: Laboratory Tests Test 03/06/20 03:40 Sodium Level 133 mmol/L (136-145) Potassium Level 5.8 mmol/L (3.5-5.1) Chloride Level 99 mmol/L (98-107) Carbon Dioxide Level 23 mmol/L (21-32) Anion Gap 11 (6-14) Blood Urea Nitrogen 64 mg/dL (7-20) Creatinine 7.1 mg/dL (0.6-1.0) Estimated GFR (Cockcroft-Gault) 6.7 Glucose Level 90 mg/dL (70-99) Calcium Level 6.7 mg/dL (8.5-10.1) Assessment and Plan Assessmemt and Plan Problems Medical Problems: (1) Chest pain Status: Acute (2) Elevated troponin Status: Acute Comment Review of Relevant I have reviewed the following items rose (where applicable) has been applied. Medications: Current Medications Medications (Trade) Dose Ordered Sig/Diana Route PRN Reason Start Time Stop Time Status Last Admin Dose Admin Ergocalciferol (Vitamin D2) 50,000 unit Mo PO 03/06/20 09:00 03/06/20 11:48 Nitroglycerin (Nitroglycerin) 200 mcg 1X ONCE IART 03/06/20 11:00 03/06/20 11:04 DC 03/06/20 11:00 Verapamil HCl (Verapamil) 2.5 mg 1X ONCE IART 03/06/20 11:00 03/06/20 11:05 DC 03/06/20 11:00 Heparin Sodium (Porcine) (Heparin Sodium) 2,500 unit 1X ONCE IART 03/06/20 11:00 03/06/20 11:04 DC 03/06/20 11:00 Heparin Sodium/ Sodium Chloride (HEPARIN for ARTERIAL LINE FLUSH) 1,000 unit 1X ONCE IART 03/06/20 11:00 03/06/20 11:05 DC 03/06/20 11:00 Heparin Sodium/ Sodium Chloride (HEPARIN for ARTERIAL LINE FLUSH) 1,000 unit 1X ONCE IART 03/06/20 11:00 03/06/20 11:04 DC 03/06/20 11:00 Midazolam HCl (Versed) 2 mg 1X ONCE IV 03/06/20 11:00 03/06/20 11:04 DC 03/06/20 11:00 Fentanyl Citrate (Fentanyl 2ml Vial) 100 mcg 1X ONCE IV 03/06/20 11:00 03/06/20 11:04 DC 03/06/20 11:00 Iodixanol (Visipaque 320) 100 ml 1X ONCE IART 03/06/20 11:00 03/06/20 11:04 DC 03/06/20 11:00 Lidocaine HCl (Xylocaine-Mpf 1% 2ml Vial) 2 ml 1X ONCE INJ 03/06/20 11:00 03/06/20 11:04 DC 03/06/20 11:00 Justicifation of Admission Dx: Justifications for Admission: Justification of Admission Dx: N/A HAO SUMMERS MD Mar 06, 2020 15:15
[2020-03-06] MEDS: DONEPEZIL HCL 5 MG TABLET. PO SCH (21:24)
[2020-03-06] MEDS: ZIPRASIDONE 20 MG CAPSULE PO SCH (21:24)
[2020-03-07] MEDS: LORazepam 0.5 MG TABLET PO PRN (02:19)
[2020-03-07 03:13] LABS: BASO % 1 % (0-3); EOS % 1 % (0-3); HEMATOCRIT 31.6 % (36.0-47.0); HEMOGLOBIN 10.3 g/dL (12.0-15.5); LYMPH # 0.6 x10^3/uL (1.0-4.8); LYMPH % 16 % (24-48); MEAN CORPUSCULAR HEMOGLOBIN 28 pg (25-35); MEAN CORPUSCULAR HGB CONC 33 g/dL (31-37); MEAN CORPUSCULAR VOLUME 86 fL (79-100); MONO # 0.5 x10^3/uL (0.0-1.1); MONO % 14 % (0-9); NEUT # 2.5 x10^3/uL (1.8-7.7); NEUT % 68 % (31-73); PLATELET COUNT 187 x10^3/uL (140-400); RED CELL DISTRIBUTION WIDTH 17.9 % (11.5-14.5); WHITE BLOOD COUNT 3.6 x10^3/uL (4.0-11.0)
[2020-03-07 03:31] LABS: CALCIUM 6.9 mg/dL (8.5-10.1); CREATININE 4.3 mg/dL (0.6-1.0); GFR 11.9; POTASSIUM 4.6 mmol/L (3.5-5.1)
--- NOTE | 2020-03-07 03:37 | EKG ---
[facility] [address] [place] [address] Test Date: 2020-03-03 Test Time: 16:00:46 Pat Name: DENISE PAN Department: Room: Gender: F Facility Security Officer: : 1935 Requested By: YESI PADILLA Order Number: [id number] Reading MD: Measurements Intervals [place] Rate: 69 P: 57 VA: 176 QRS: -56 QRSD: 118 T: 77 QT: 476 QTc: 512 Interpretive Statements SINUS RHYTHM ABNORMAL LEFT AXIS DEVIATION LEFT ANTERIOR FASCICULAR BLOCK LEFT VENTRICULAR HYPERTROPHY QRS(T) CONTOUR ABNORMALITY CONSIDER ANTEROSEPTAL MYOCARDIAL DAMAGE T ABNORMALITY IN HIGH LATERAL LEADS PROLONGED QT ABNORMAL ECG RI6.01 No previous ECG available for comparison
[2020-03-07 07:00] VITALS: BP 110/45
[2020-03-07] MEDS: LOSARTAN POTASSIUM 25 MG TABLET. PO SCH (09:11)
[2020-03-07 10:27] VITALS: BP 147/61
--- NOTE | 2020-03-07 11:41 | PDOC ---
Renal-Progress Notes Subjective Notes Notes NO NEW COMPLAINTS History of Present Illness Hx of present illness STABLE Vitals Vitals Vital Signs Date Time Temp Pulse Resp B/P (MAP) Pulse Ox O2 Delivery O2 Flow Rate FiO2 03/07/20 10:27 98.1 81 18 147/61 (89) 100 Room Air 2.0 98.1 Weight Weight [ ] I.O. Intake and Output Intake and Output 03/07/20 07:00 Intake Total 1420 ml Balance 1420 ml Intake Oral 1420 ml # Voids 2 Labs Labs Laboratory Tests Test 03/06/20 15:30 03/07/20 02:50 Hepatitis B Surface Antigen Nonreactive (Nonreactive) White Blood Count 3.6 x10^3/uL (4.0-11.0) Red Blood Count 3.70 x10^6/uL (3.50-5.40) Hemoglobin 10.3 g/dL (12.0-15.5) Hematocrit 31.6 % (36.0-47.0) Mean Corpuscular Volume 86 fL (79-100) Mean Corpuscular Hemoglobin 28 pg (25-35) Mean Corpuscular Hemoglobin Concent 33 g/dL (31-37) Red Cell Distribution Width 17.9 % (11.5-14.5) Platelet Count 187 x10^3/uL (140-400) Neutrophils (%) (Auto) 68 % (31-73) Lymphocytes (%) (Auto) 16 % (24-48) Monocytes (%) (Auto) 14 % (0-9) Eosinophils (%) (Auto) 1 % (0-3) Basophils (%) (Auto) 1 % (0-3) Neutrophils # (Auto) 2.5 x10^3/uL (1.8-7.7) Lymphocytes # (Auto) 0.6 x10^3/uL (1.0-4.8) Monocytes # (Auto) 0.5 x10^3/uL (0.0-1.1) Eosinophils # (Auto) 0.0 x10^3/uL (0.0-0.7) Basophils # (Auto) 0.0 x10^3/uL (0.0-0.2) Sodium Level 133 mmol/L (136-145) Potassium Level 4.6 mmol/L (3.5-5.1) Chloride Level 99 mmol/L (98-107) Carbon Dioxide Level 29 mmol/L (21-32) Anion Gap 5 (6-14) Blood Urea Nitrogen 29 mg/dL (7-20) Creatinine 4.3 mg/dL (0.6-1.0) Estimated GFR (Cockcroft-Gault) 11.9 Glucose Level 168 mg/dL (70-99) Calcium Level 6.9 mg/dL (8.5-10.1) Review of Systems Constitutional: yes: alert, oriented Ears/Nose/Throat: Yes: no symptom reported Eyes: Yes: no symptom reported Pulmonary: Yes no symptom reported Cardiovascular: Yes chest pain Gastrointestional: Yes: no symptom reported Genitourinary: Yes: no symptom reported Musculoskeletal: Yes: muscle stiffness Skin: Yes no symptom reported Psychiatric/Neurological: Yes: no symptom reported Endocrine: Yes: no symptom reported Physical Exam General Appearance: no apparent distress Skin: warm Respiratory: bilateral CTA Heart: S1S2 Abdomen: soft, bowel sounds present Genitourinary: bladder flat Extremities: pulses present Neurology: alert Assessment Assessment IMP CHEST PAIN-NL CORS ESRD ANEMIA DM II HTN PLAN HD TOMORROW HOLD ELISEO MAURO CASEY MD Mar 07, 2020 11:41
--- NOTE | 2020-03-07 11:58 | NUR ---
SS following up with discharge planning. SS reviewed pt chart and discussed with pt RN. Pt is currently on room air. Per RN, pt heart cath was clean. PT/OT recommended assisted unit. As observed, pt pleasantly confused. SS contacted pt's daughter, Vanessa, to discuss discharge planning and assisted unit. Pt's daughter reported that she has discussed with her siblings and family does NOT want pt to go to assisted unit. Pt's daughter reported that pt will discharge to home with family and requested that [facility], ; fax [phone], be arranged. Pt's daughter reported that if [facility] cannot accept pt then referral could be sent to [facility]. SS phoned and faxed referral to [facility]. SS discussed with physician. Pt is a high risk readmission risk if returning to home. Possible discharge to home today with family. SS will continue to follow for discharge planning.
[2020-03-07] MEDS: hydrALAZINE 25 MG TABLET PO SCH (12:10)
--- NOTE | 2020-03-07 13:09 | PDOC ---
[place] ASSESSOR 03/07/20 1308: CARDIO Progress Notes Date and Time Date of Service 03/07/2020 Time of Evaluation 1300 Subjective Subjective: No Chest Pain, No shortness of breath, No Palpitations Vitals Vitals Vital Signs Date Time Temp Pulse Resp B/P (MAP) Pulse Ox O2 Delivery O2 Flow Rate FiO2 03/07/20 12:10 81 147/61 03/07/20 11:57 Room Air 03/07/20 10:27 98.1 18 100 2.0 98.1 Weight Weight [ ] Input and Output Intake and Output Intake and Output 03/07/20 07:00 Intake Total 1420 ml Balance 1420 ml Intake Oral 1420 ml # Voids 2 Laboratory Labs Laboratory Tests Test 03/06/20 15:30 03/07/20 02:50 Hepatitis B Surface Antigen Nonreactive (Nonreactive) White Blood Count 3.6 x10^3/uL (4.0-11.0) Red Blood Count 3.70 x10^6/uL (3.50-5.40) Hemoglobin 10.3 g/dL (12.0-15.5) Hematocrit 31.6 % (36.0-47.0) Mean Corpuscular Volume 86 fL (79-100) Mean Corpuscular Hemoglobin 28 pg (25-35) Mean Corpuscular Hemoglobin Concent 33 g/dL (31-37) Red Cell Distribution Width 17.9 % (11.5-14.5) Platelet Count 187 x10^3/uL (140-400) Neutrophils (%) (Auto) 68 % (31-73) Lymphocytes (%) (Auto) 16 % (24-48) Monocytes (%) (Auto) 14 % (0-9) Eosinophils (%) (Auto) 1 % (0-3) Basophils (%) (Auto) 1 % (0-3) Neutrophils # (Auto) 2.5 x10^3/uL (1.8-7.7) Lymphocytes # (Auto) 0.6 x10^3/uL (1.0-4.8) Monocytes # (Auto) 0.5 x10^3/uL (0.0-1.1) Eosinophils # (Auto) 0.0 x10^3/uL (0.0-0.7) Basophils # (Auto) 0.0 x10^3/uL (0.0-0.2) Sodium Level 133 mmol/L (136-145) Potassium Level 4.6 mmol/L (3.5-5.1) Chloride Level 99 mmol/L (98-107) Carbon Dioxide Level 29 mmol/L (21-32) Anion Gap 5 (6-14) Blood Urea Nitrogen 29 mg/dL (7-20) Creatinine 4.3 mg/dL (0.6-1.0) Estimated GFR (Cockcroft-Gault) 11.9 Glucose Level 168 mg/dL (70-99) Calcium Level 6.9 mg/dL (8.5-10.1) Review of Systems Constitutional: yes: alert, oriented Ears/Nose/Throat: Yes: no symptom reported Eyes: Yes: no symptom reported Pulmonary: Yes no symptom reported Cardiovascular: Yes chest pain Gastrointestional: Yes: no symptom reported Genitourinary: Yes: no symptom reported Musculoskeletal: Yes: muscle stiffness Skin: Yes no symptom reported Psychiatric/Neurological: Yes: no symptom reported Endocrine: Yes: no symptom reported Physical Exam HEENT: Neck Supple W Full Motion Chest: Symmetric LUNGS: Clear to Auscultation Heart: S1S2, RRR (SR) Abdomen: Soft N/T Extremities: No Calf Tenderness Neurology: alert, oriented, follow commands Assessment Assessment 1. Chest pain with mixed features: LHC revealed no significant CAD 2. Acute on chronic diastolic CHF: EF hyperdynamic at 80%. Compensated 3. Hypertension: Controlled 4. DM2: Per IM 5. ESRD 6. NSTEMI: Type 2. Recommendations 1. Continue BP regimen. 2. Will obtain outpt TTE. Follow up in our office with Dr. Baldwin. Secondary prevention measures Justicifation of Admission Dx: Justifications for Admission: Justification of Admission Dx: N/A GAYATHRI BALDWIN MD 03/07/20 3031: CARDIO Progress Notes Assessment Assessment Patient seen and examined. Agree with IN CLASS SPECIAL EDUCATION TEACHER's assessment and plan, Cardiac cath yesterday did not show any significant CAD NSTEMI prob demand ischemia Ac on chr diast HF better compensated Continue HD per nephrology team [place] APRN Mar 07, 2020 13:08 GAYATHRI BALDWIN MD Mar 07, 2020 21:45
--- NOTE | 2020-03-07 13:51 | SNU/HH DC ---
DISCHARGE WITH HOME HEALTH DISCHARGE INFORMATION: Final Diagnosis: Problems Medical Problems: (1) Chest pain Status: Acute (2) Elevated troponin Status: Acute Condition on Discharge: Stable CODE STATUS: Code Status: Full HOME HEALTH: Face to Face: I certify this patient is under my care and that I, or a nurse practitioner or physician's culinary assistant working with me, had a face to face encounter that meets the physician face to face encounter requirements with this patient on []. Medical Complications: Dementia, Falls, HTN, Other Residential For: Assess Cardiopulm Status, Assess & Educate Safety, Assess/Skilled Observatio, Diabetic Care, Medication Management RN For Eval/Treatment: Yes Physical Therapy For: Evalulation/Treatment Occupational Therapy For: Evaluation/Treatment Speech Language Pathology For: Evaluation/Treatment Home Health Aide For: Self-care ELECTROMECHANISMS DESIGN DRAFTER For: Community Resources Pt Meets Homebound Status: Extreme weakness w/ amb., Limited distance walking, Poor cognition POST DISCHARGE ORDERS: Activity Instructions for Disc: Activity as tolerated DIET AFTER DISCHARGE: ADA CHECKS AFTER DISCHARGE: Checks after discharge: Check blood press - daily, Check blood sugar, ac/hs, Weigh Yourself Daily FOLLOW-UP: Follow up with: Nephrology to continue with their HD TREATMENT/EQUIPMENT ORDERS: Adaptive Equipment Issued: None CERTIFICATION STATEMENT: Certification Statement: Certification Statement: Based on the above finding, I certify that this patient is confined to the home and needs intermittent senior care care, physical therapy and/or speech therapy, or continues to need occupational therapy.~ This patient is under my care, and I have initiated the establishment of the plan of care.~ This patient will be followed by myself or a community physician who will periodically review the plan of care. Home Meds Reported Medications Ergocalciferol (Vitamin D2) (Vitamin D2) 1,250 Mcg Capsule, 1250 MCG PO WEEKLY for 03/03/20 Donepezil Hcl (DONEPEZIL HCL) 5 Mg Tablet, 5 MG PO QHS for 03/03/20 Losartan Potassium (Losartan Potassium) 25 Mg Tablet, 25 MG PO BID for , TAB 03/03/20 Ziprasidone Hcl (ZIPRASIDONE HCL) 20 Mg Capsule, 20 MG PO HS for bipolar 01/03/20 Hydralazine Hcl (HYDRALAZINE HCL) 25 Mg Tablet, 1 TAB PO BID for hypertension, #90 TAB 5 Refills 08/04/19 Discontinued Reported Medications Losartan Potassium (LOSARTAN POTASSIUM) 50 Mg Tablet, 25 MG PO BID for HYPERTENSION, TAB 08/04/19 HAO SUMMERS MD Mar 07, 2020 13:51
--- NOTE | 2020-03-07 14:24 | NUR ---
SS following up with discharge planning. Discharge orders for home healthcare received. SS phoned and faxed discharge orders to [facility], ; fax [phone]. Pt's RN notified.
[2020-03-07 14:55] VITALS: BP 121/70
--- NOTE | 2020-03-07 16:18 | NUR ---
Discharge Note: [facility] Discharge instructions and discharge home medications reviewed with Family Member and a copy given. All questions have been answered and understanding verbalized. The following instructions and handouts were given: follow up instructions, s/p cath education Discontinued lines and drains: peripheral IV discontinued, dressing clean, dry and intact. Patient discharged to home with daughter and home health via wheelchair
--- NOTE | 2020-04-04 15:23 | PDOC3 ---
[facility]-Discharge Summary Date of Admission: Date of Admission: Mar 04, 2020 Date of Discharge: Date of Discharge: Mar 07, 2020 Admission Diagnosis: Admitting Diagnosis: Chest pain rule out ACS Essential hypertension fairly controlled End-stage renal disease on hemodialysis per schedule seems to be Friday Diabetes mellitus type 2 insulin requiring Discharge Diagnosis: Discharge Diagnosis: Chest pain ruled out ACS, still concerning for coronary disease cardiology consultation noted and greatly appreciated Essential hypertension fairly controlled End-stage renal disease on hemodialysis per schedule seems to be Friday Diabetes mellitus type 2 insulin requiring Consults: Consults: Cardioogy Procedures: Procedures: [facility] Hospital Course: Hospital Course: 84-year-old female with past medical history of type 2 diabetes hypertension end-stage renal disease on hemodialysis who was in her usual state of health until the day of dialysis when while receiving her treatment she complained of chest discomfort that lasted less than 5 minutes no sensation of impending doom no nausea no diaphoresis no palpitations no shortness of breath associated with the pain. Patient denies radiation to the jaw to the arm or to the back. At the time of my evaluation patient is in no acute distress. Her troponin was mildly elevated in the ER has requested for us to admit the patient for his cardiological evaluation. At the time of my visit the patient is resting in bed in no acute distress no chest pain has been reported throughout the night either. Telemetry does not have any concerning signs either. Reassurance has been provided Evaluated by cardiology and [facility] was completed. ACS ruled out without any coronary disease found. Patient will need outpatient TTE upon discharge. patient was stable after procedure and the rest of her hospital course was uneventful. Disposition: Disposition/Orders: D/C to Home Activity: Activity: Resume previous activity Diet: Diet: Cardiac Medications: Home Meds Reported Medications Apixaban (ELIQUIS) 5 Mg Tablet, 10 MG PO DAILY for blood thinner for 7 Days, #14 TAB 03/27/20 Folic Acid/Vitamin B Comp W-C (BRUCE-MALU TABLET) 0.8 Mg Tablet, 1 TAB PO DAILY for FOR DIALYSIS PT for 30 Days, #30 TAB 0 Refills 03/23/20 Ergocalciferol (Vitamin D2) (Vitamin D2) 1,250 Mcg Capsule, 1250 MCG PO WEEKLY for 03/03/20 Donepezil Hcl (DONEPEZIL HCL) 5 Mg Tablet, 5 MG PO QHS for 03/03/20 Ziprasidone Hcl (ZIPRASIDONE HCL) 20 Mg Capsule, 20 MG PO HS for bipolar 01/03/20 Hydralazine Hcl (HYDRALAZINE HCL) 25 Mg Tablet, 1 TAB PO BID for hypertension, #90 TAB 5 Refills 08/04/19 Discontinued Reported Medications Losartan Potassium (Losartan Potassium) 25 Mg Tablet, 25 MG PO BID for , TAB 03/03/20 Scheduled Apixaban (Eliquis), 10 MG PO DAILY, (Reported) Donepezil Hcl (Donepezil Hcl), 5 MG PO QHS, (Reported) Ergocalciferol (Vitamin D2) (Vitamin D2), 1,250 MCG PO WEEKLY, (Reported) Folic Acid/Vitamin B Comp W-C (Bruce-Malu Tablet), 1 TAB PO DAILY, (Reported) Hydralazine Hcl (Hydralazine Hcl), 1 TAB PO BID, (Reported) Ziprasidone Hcl (Ziprasidone Hcl), 20 MG PO HS, (Reported) Discontinued Medications Losartan Potassium (Losartan Potassium), 25 MG PO BID, (Reported) Total Time: Total Time: Discharge time spend was 15 minutes Justicifation of Admission Dx: Justifications for Admission: Justification of Admission Dx: N/A HAO SUMMERS MD Apr 04, 2020 15:23
[2020-04-06] MEDS ORDERED: OMEP1CAP24 PO (11:47)
== END 2020-03-07 16:05 | disposition home health service (06) | DRG 280 ==
LOC: ER 15:44 → 2 SOUTH 18:25
PROVIDERS: ADMIT Family Medicine; ATTEND Family Medicine
PROC: 4A023N7 Measurement of Cardiac Sampling and Pressure, Left Heart, Percutaneous Approach (ICD-10-PCS; principal; 2020-03-06)
PROC: B2111ZZ Fluoroscopy of Multiple Coronary Arteries using Low Osmolar Contrast (ICD-10-PCS; 2020-03-06)
PROC: B2151ZZ Fluoroscopy of Left Heart using Low Osmolar Contrast (ICD-10-PCS; 2020-03-06)
PROC: 5A1D70Z Performance of Urinary Filtration, Intermittent, Less than 6 Hours Per Day (ICD-10-PCS; 2020-03-06)
DX: I13.2 Hypertensive heart and chronic kidney disease with heart failure and with stage 5 chronic kidney disease, or end stage renal disease (principal); I21.A1 Myocardial infarction type 2; N18.6 End stage renal disease; I50.33 Acute on chronic diastolic (congestive) heart failure; D64.9 Anemia, unspecified; E11.22 Type 2 diabetes mellitus with diabetic chronic kidney disease; F03.90 Unspecified dementia, unspecified severity, without behavioral disturbance, psychotic disturbance, mood disturbance, and anxiety; Z79.4 Long term (current) use of insulin; Z82.49 Family history of ischemic heart disease and other diseases of the circulatory system; Z87.891 Personal history of nicotine dependence; Z90.11 Acquired absence of right breast and nipple; Z90.12 Acquired absence of left breast and nipple; Z90.710 Acquired absence of both cervix and uterus; Z99.2 Dependence on renal dialysis
CPT/HCPCS: 36415; 71045; 80048; 80053; 83735; 84484; 85025; 87340; 93005; 93458; 99152; C1769; C1892; J1644; J2250; J3010; J3490; Q9967; 97110-GP; 97530-GP; 97535-GO; 99285-25; G0378

== ENCOUNTER 2020-03-22 20:22 | Inpatient (IN) | payer MEDICARE ==
[~2020-03-22] VITALS: Ht 162.6 cm; Wt 73.1 kg
[~2020-03-22 20:22] MED LIST changes: +DONE5TAB7 PO; +ERGO500027 PO; +LOSA25TA12 PO
[2020-03-22 22:14] LABS: CALCIUM 7.9 mg/dL (8.5-10.1); CREATININE 8.8 mg/dL (0.6-1.0); GFR 5.2; POTASSIUM 5.6 mmol/L (3.5-5.1)
[2020-03-22 22:19] LABS: ALBUMIN 3.7 g/dL (3.4-5.0); MAGNESIUM 2.7 mg/dL (1.8-2.4); TOTAL BILIRUBIN 0.4 mg/dL (0.2-1.0); TOTAL PROTEIN 7.3 g/dL (6.4-8.2)
[2020-03-22 22:22] LABS: BASO # 0.1 x10^3/uL (0.0-0.2); BASO % 1 % (0-3); EOS % 0 % (0-3); HEMATOCRIT 30.9 % (36.0-47.0); HEMOGLOBIN 10.2 g/dL (12.0-15.5); LYMPH # 1.9 x10^3/uL (1.0-4.8); LYMPH % 26 % (24-48); MEAN CORPUSCULAR HEMOGLOBIN 28 pg (25-35); MEAN CORPUSCULAR HGB CONC 33 g/dL (31-37); MEAN CORPUSCULAR VOLUME 85 fL (79-100); MONO # 0.5 x10^3/uL (0.0-1.1); MONO % 7 % (0-9); NEUT # 4.7 x10^3/uL (1.8-7.7); NEUT % 66 % (31-73); PLATELET COUNT 206 x10^3/uL (140-400); RED BLOOD COUNT 3.62 x10^6/uL (3.50-5.40); WHITE BLOOD COUNT 7.2 x10^3/uL (4.0-11.0)
[2020-03-22 22:37] LABS: % LYMPHS 14 % (24-48); % MONOS 10 % (0-10); % SEGS 76 % (35-66)
[2020-03-22 22:38] LABS: PLT ESTIMATE ADEQUATE (ADEQUATE)
--- NOTE | 2020-03-22 22:38 | PHYS DOC ---
Past Medical History Past Medical History: Diabetes-Type II, Hypertension, Renal Disease (SOBEIDA ONTIVEROS APRN) Past Surgical History: Hysterectomy, Other Additional Past Surgical Histo: RIGHT MASTECTOMY, LEFT DIALYSIS FISTULA (SOBEIDA ONTIVEROS APRN) Smoking Status: Never Smoker Alcohol Use: None Drug Use: None (SOBEIDA ONTIVEROS APRN) General Adult EDM: Chief Complaint: HAND PROBLEM HPI: HPI: Patient is a 84 year old AA female who presents to the emergency department via EMS with reports of missing dialysis today and left hand spasms, swelling, and discomfort of the left upper extremity. Patient states that she was supposed to go to dialysis this morning but did not go. She reports that she had a graft placed in her left arm 1 week ago. She reports that her arm is tender to touch. She denies any fever, drainage, or bleeding from the knee graft site. She has 2 sutures in her left anterior chest. Patient states this is where her dialysis catheter was removed from last week. She denies any chest pain, abdominal pain, nausea, vomiting, diarrhea, shortness of breath, wheezing, fever, numbness, tingling, or weakness. Patient verbalizes frustration about her family dynamics and states that her daughter calls the ambulance whenever she wants to get rid of her. Patient's daughter states that she tried to take her mother to dialysis this morning but her mother refused to get in the car. Daughter reports she then called an [employer] for her mother to go to dialysis but the patient continued to refuse to go to dialysis. The patient currently denies any pain. She states that her left arm only hurts if you touch it. (SOBEIDA ONTIVEROS APRN) Review of Systems: Review of Systems: Constitutional: Denies fever or chills. [] Eyes: Denies change in visual acuity. [] HENT: Denies nasal congestion or sore throat. [] Respiratory: Denies cough or shortness of breath. [] Cardiovascular: Denies chest pain or edema. [] GI: Denies abdominal pain, nausea, vomiting, or diarrhea. [] : Denies dysuria or decreased urine output. Musculoskeletal: See HPI Integument: See HPI Neurologic: Denies headache Psychiatric: Denies depression or anxiety; see HPI. [] (SOBEIDA ONTIVEROS APRN) Heart Score: Risk Factors: Risk Factors: DM, Current or recent (<one month) smoker, HTN, HLP, family history of CAD, obesity. Risk Scores: Score 0 - 3: 2.5% MACE over next 6 weeks - Discharge Home Score 4 - 6: 20.3% MACE over next 6 weeks - Admit for Clinical Observation Score 7 - 10: 72.7% MACE over next 6 weeks - Early Invasive Strategies (SOBEIDA ONTIVEROS APRN) Allergies: Allergies: Allergies Coded Allergies Type Severity Reaction Last Updated Verified Sulfa (Sulfonamide Antibiotics) Allergy Severe "Ashkan Ubaldo's disease" 08/13/15 Yes (SOBEIDA ONTIVEROS APRN) Physical Exam: PE: Constitutional: Well developed, well nourished, no acute distress, non-toxic appearance. [] HENT: Normocephalic, atraumatic, bilateral external ears normal, nose normal. [] Eyes: PERRLA, EOMI, conjunctiva normal, no discharge. [] Neck: Normal range of motion, no stridor. [] Cardiovascular:Heart rate regular rhythm Lungs & Thorax: Bilateral breath sounds clear to auscultation, Respirations even and unlabored, no retractions, no respiratory distress [] Skin: Warm, dry; healing dialysis graft site noted to left antecubital region without purulent drainage or bleeding. Extremities: LUE: Diffuse tenderness to palpation with no bony tenderness, no obvious deformity, 2+ edema to the left hand, forearm, and antecubital area; + bruit, no palpable thrill of the left arm fistula, 2+ radial pulse, no cyanosis, ROM intact, Neurologic: Alert and oriented X 3, normal motor function, normal sensory function, no focal deficits noted. [] Psychologic: Affect argumentative, judgement normal, mood agitated (SOBEIDA ONTIVEROS APRN) Current Patient Data: Labs: Laboratory Tests Test 03/22/20 22:00 Sodium Level 140 mmol/L (136-145) Potassium Level 5.6 mmol/L (3.5-5.1) H Chloride Level 102 mmol/L (98-107) Carbon Dioxide Level 22 mmol/L (21-32) Anion Gap 16 (6-14) H Blood Urea Nitrogen 78 mg/dL (7-20) H Creatinine 8.8 mg/dL (0.6-1.0) H Estimated GFR (Cockcroft-Gault) 5.2 BUN/Creatinine Ratio 9 (6-20) Glucose Level 135 mg/dL (70-99) H Calcium Level 7.9 mg/dL (8.5-10.1) L Magnesium Level 2.7 mg/dL (1.8-2.4) H Total Bilirubin 0.4 mg/dL (0.2-1.0) Aspartate Amino Transferase (AST) 23 U/L (15-37) Alanine Aminotransferase (ALT) 28 U/L (14-59) Alkaline Phosphatase 79 U/L (46-116) Total Protein 7.3 g/dL (6.4-8.2) Albumin 3.7 g/dL (3.4-5.0) Albumin/Globulin Ratio 1.0 (1.0-1.7) Laboratory Tests 03/22/20 22:00 Vital Signs: Vital Signs Date Time Temp Pulse Resp B/P (MAP) Pulse Ox O2 Delivery O2 Flow Rate FiO2 03/22/20 20:27 98.3 89 165/72 (103) 100 Room Air 98.3 (SOBEIDA ONTIVEROS APRN) EKG: EKG: [] (SOBEIDA ONTIVEROS APRN) Radiology/Procedures: Radiology/Procedures: PROCEDURE: VENOUS UPPER EXTREMITY LEFT Left upper extremity venous duplex Doppler ultrasound HISTORY: Left arm swelling and pain after graft placement one week ago. FINDINGS: There is noncompressibility the left internal jugular vein and there is absent color Doppler blood flow concerning for thrombosis and occlusion. No DVT with patent color Doppler blood flow the left subclavian vein. No DVT with compressibility and patent color Doppler blood flow of the left axillary vein and brachial vein. No thrombosis with patent color Doppler blood flow the left basilic vein and cephalic vein. New patent left upper extremity arteriovenous fistula graft is documented without thrombosis or occlusion. Segments of an old separate arteriovenous fistula with occlusion are documented. IMPRESSION: 1. Occlusive DVT left internal jugular vein. 2. New arteriovenous fistula graft in the left upper extremity is patent. There is a separate old graft which is occluded. FOR INTERNAL CODING PURPOSES Critical result: Findings discussed with SOBEIDA ONTIVEROS at 03/22/2020 11:28 PM. RESULT CODE: (C) Electronically signed by: Samuel Baum MD (03/22/2020 11:30 PM) [facility] [] (SOBEIDA ONTIVEROS APRN) Course & Med Decision Making: Course & Med Decision Making Pertinent Labs and Imaging studies reviewed. (See chart for details) 7-spoke with Dr. Scott who is the admitting physician, and care was assumed following discussion of patient. Will admit the patient for left arm pain and swelling, and chronic renal failure as observation status. I advised Dr. Scott that an ultrasound had been ordered of the left arm and that labs are pending. I also advised him that family reported concerns about the health decisions that the patient is making, they reported that the patient refused to go to dialysis today. Patient's vital signs stable. Patient remains afebrile, appears nontoxic, respirations even and unlabored. Patient will be admitted to the med/surg floor. Patient's case and plan of care also discussed with Dr. Burdick 2329- Per radiologist left jugular vein is occluded. Pt's graft is open he denies any abnormalities in the left arm. 2330-we will start patient on heparin protocol for DVT. I advised Dr. Burdick of this new finding, he will inform Dr. Scott in the morning of this finding and advised of the heparin orders.. [] (SOBEIDA ONTIVEROS APRN) Dragon Disclaimer: Dragon Disclaimer: This electronic medical record was generated, in whole or in part, using a voice recognition dictation system. (SOBEIDA ONTIVEROS APRN) Departure Departure Impression: Primary Impression: Pain and swelling of left upper extremity Additional Impressions: ESRD (end stage renal disease) Occlusion of left jugular vein Disposition: ADMITTED INPATIENT Admitting Physician: JUAN (Sonia) (SOBEIDA ONTIVEROS APRN) Condition: STABLE Referrals: DELTA RIZVI MD (PCP) Justicifation of Admission Dx: Justifications for Admission: Justification of Admission Dx: N/A (SOBEIDA ONTIVEROS APRN) Attending Signature Attending Signature I have reviewed the PA/DESIGN DIRECTOR's note and plan of care. I was available for consultation as needed during the patient's visit in the emergency department. I agree with the clinical impression, plan, and disposition. (DAMARIS BURDICK DO) SOBEIDA ONTIVEROS APRN Mar 22, 2020 22:38 DAMARIS BURDICK DO Mar 23, 2020 01:50
[2020-03-22 22:40] LABS: ANISOCYTOSIS SLIGHT; POLYCHROMASIA SLIGHT; TOXIC GRANULATION SLIGHT
--- NOTE | 2020-03-22 23:33 | RAD ---
Left upper extremity venous duplex Doppler ultrasound HISTORY: Left arm swelling and pain after graft placement one week ago. FINDINGS: There is noncompressibility the left internal jugular vein and there is absent color Doppler blood flow concerning for thrombosis and occlusion. No DVT with patent color Doppler blood flow the left subclavian vein. No DVT with compressibility and patent color Doppler blood flow of the left axillary vein and brachial vein. No thrombosis with patent color Doppler blood flow the left basilic vein and cephalic vein. New patent left upper extremity arteriovenous fistula graft is documented without thrombosis or occlusion. Segments of an old separate arteriovenous fistula with occlusion are documented. IMPRESSION: 1. Occlusive DVT left internal jugular vein. 2. New arteriovenous fistula graft in the left upper extremity is patent. There is a separate old graft which is occluded. FOR INTERNAL CODING PURPOSES Critical result: Findings discussed with SOBEIDA ONTIVEROS at 03/22/2020 11:28 PM. RESULT CODE: (C) Electronically signed by: Samuel Baum MD (03/22/2020 11:30 PM) [facility]
[2020-03-22] MEDS ORDERED: HEPARIN for IV BOLUS 10,000 UNIT/10 ML VIAL. IV PRN ×2 (23:45)
[2020-03-23] VITALS (8 sets, daily range): BP systolic 100–176; BP diastolic 46–84
[2020-03-23] MEDS ORDERED: ASPIRIN 325 MG TABLET PO ONE
[2020-03-23] MEDS ORDERED: HEPARIN for IV BOLUS 10,000 UNIT/10 ML VIAL. IV ONE
[2020-03-23] MEDS: ANTI-COAG MONITOR BY PHARMACY. MC PRN (00:49)
[2020-03-23] MEDS ORDERED: FOLI0.8T21 PO (01:18)
--- NOTE | 2020-03-23 03:00 | NUR ---
pt pulled out her EJ in left neck. attempted a new iv. anst had to put the ej one in her. called and reported to dr olea, she called back a third tiime to give a one time order. lcrn
[2020-03-23] MEDS ORDERED: ENOXAPARIN 40 MG/0.4 ML SYRINGE. SQ ONE (05:30)
[2020-03-23] MEDS: FOLIC/VIT B COMP W-C (RENAL) TABLET. PO SCH (10:18)
[2020-03-23] MEDS: hydrALAZINE 25 MG TABLET PO SCH ×2 (10:18→20:30)
[2020-03-23] MEDS: LOSARTAN POTASSIUM 25 MG TABLET. PO SCH ×2 (10:18→20:30)
--- NOTE | 2020-03-23 11:36 | PDOC1 ---
History and Physical Date of Service: DOS: DATE: 03/23/20 TIME: 11:33 Chief Complaint: Problems: (1) Strain of right knee and leg (2) Clotted dialysis shunt (3) End stage kidney disease (4) Hyperkalemia (5) CRF (chronic renal failure) (6) ESRD (end stage renal disease) (7) Occlusion of left jugular vein (8) Pain and swelling of left upper extremity (9) DVT (deep venous thrombosis) Chief Complain: Left arm pain recent dialysis shunt placement History of Present Illness: HPI: This is a middle-aged female who is on dialysis She had a shunt placed in the left arm about a week ago Now the left arm is painful has some swelling She missed dialysis yesterday because she was not feeling well and the arm was hurting She eventually ended up in the ER They did some imaging which is showing a DVT of the left internal carotid I discussed the case with ER physician and going to meet the patient and consult nephrology and vascular surgery Past Medical/Surgical History: PMH/PSH: Past Medical History: Diabetes-Type II, Hypertension, Renal Disease Past Surgical History: Hysterectomy, Other recent dialysis shunt to the left arm Additional Past Surgical Histo: RIGHT MASTECTOMY, LEFT DIALYSIS FISTULA Allergies: Allergies: Coded Allergies: Sulfa (Sulfonamide Antibiotics) (Verified Allergy, Severe, "Ashkan Ubaldo's disease", 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) Family History: Family History: Hypertension Social History: Social History: She does not drink smoke or take drugs Current Medications: Current Medications Current Medications Aspirin (Cherise Aspirin) 325 mg 1X ONCE PO Last administered on 03/23/20at 00:26; Start 03/23/20 at 00:00; Stop 03/23/20 at 00:01; Status DC Heparin Sodium (Porcine) (Heparin Sodium) 5,600 unit 1X ONCE IV Last administered on 03/23/20at 00:28; Start 03/23/20 at 00:00; Stop 03/23/20 at 00:01; Status DC Heparin Sodium/ Dextrose 250 ml @ 0 mls/hr CONT PRN IV PER PROTOCOL; Start 03/22/20 at 23:45 Heparin Sodium (Porcine) (Heparin Sodium) 2,100 unit PRN Q6HRS PRN IV FOR UFH LEVEL LESS THAN 0.2; Start 03/22/20 at 23:45 Heparin Sodium (Porcine) (Heparin Sodium) 1,050 unit PRN Q6HRS PRN IV FOR UFH LEVEL 0.2 - 0.29; Start 03/22/20 at 23:45 Info (Anti-Coagulation Monitoring By Pharmacy) 1 each PRN DAILY PRN MC SEE COMMENTS Last administered on 03/23/20at 00:49; Start 03/22/20 at 23:45 Enoxaparin Sodium (Lovenox 40mg Syringe) 40 mg 1X ONCE SQ Last administered on 03/23/20at 06:01; Start 03/23/20 at 05:30; Stop 03/23/20 at 05:31; Status DC Donepezil HCl (Aricept) 5 mg QHS PO ; Start 03/23/20 at 21:00 Vitamin B Complex/ Vitamin C (Sarahy-Angelia) 1 tab DAILY PO Last administered on 03/23/20at 10:18; Start 03/23/20 at 10:00 Hydralazine HCl (Apresoline) 25 mg BID PO Last administered on 03/23/20at 10:18; Start 03/23/20 at 10:00 Losartan Potassium (Cozaar) 25 mg BID PO Last administered on 03/23/20at 10:18; Start 03/23/20 at 10:00 Ziprasidone (Geodon) 20 mg HS PO ; Start 03/23/20 at 21:00 Acetaminophen/ Hydrocodone Bitart (Lortab 5/325) 1 tab PRN Q4HRS PRN PO MODERATE PAIN; Start 03/23/20 at 10:30 Active Scripts Active Reported Sarahy-Angelia Tablet (Folic Acid/Vitamin B Comp W-C) 0.8 Mg Tablet 1 Tab PO DAILY 30 Days Vitamin D2 (Ergocalciferol (Vitamin D2)) 1,250 Mcg Capsule 1,250 Mcg PO WEEKLY Donepezil Hcl 5 Mg Tablet 5 Mg PO QHS Losartan Potassium 25 Mg Tablet 25 Mg PO BID Ziprasidone Hcl 20 Mg Capsule 20 Mg PO HS Hydralazine Hcl 25 Mg Tablet 1 Tab PO BID ROS: Review of Systems Review of System REVIEW OF SYSTEMS: GENERAL: Denies weakness SKIN: No bruising, hair changes or rashes. EYES: No blurred, double or loss of vision. NOSE AND THROAT: No history of nosebleeds, hoarseness or sore throat. HEART: No history of palpitations, chest pain or shortness of breath on exertion. LUNGS: Denies cough, hemoptysis, wheezing or shortness of breath. GASTROINTESTINAL: Denies changes in appetite, nausea, vomiting, diarrhea or constipation. GENITOURINARY: No history of frequency, urgency, hesitancy or nocturia. NEUROLOGIC: Denies history of numbness, tingling, or tremor. PSYCHIATRIC: No history of panic, anxiety or depression. ENDOCRINE: No history of heat or cold intolerance, polyuria or polydipsia. EXTREMITIES: Left arm is swollen and painful Physical Exam: Vital Signs: Vital Signs Date Time Temp Pulse Resp B/P (MAP) Pulse Ox O2 Delivery O2 Flow Rate FiO2 03/23/20 11:00 97.7 65 20 100/46 (64) 94 97.7 03/23/20 00:30 Room Air Physcial Exam: GEN: No apparent distress. Alert and oriented HEENT: Normal cephalic, atraumatic, external auditory canals are patent EYES: Extraocular muscles are intact, pupil are equally round and reactive to light and accommodation MUSCULOSKELETAL: Well developed , well nourished, good range of motion ENDOCRINE: No thyromegaly was palpated LYMPHATICS: No cervical chain or axillary nodes were noted HEMATOPOIETIC: No bruising NECK: Supple, no JVD, no thyromegaly was noted LUNGS: Clear to auscultation in all lung ruiz without rhonchi or wheezing HEART: RRR, S!, S2 present. Peripheral pulses intact, no obvious murmurs noted ABDOMEN: Soft, nontender. Positive bowel sounds, no organomegaly, normal jakub wel sounds EXTREMITIES: Left arm swollen and painful NEUROLOGIC: Normal speech and tone. A&O x 3, moves all extremities, no obv ious focal deficits PSYCHIATRIC: Normal affect, normal mood. Stable SKIN: No ulcerations or rashes, good skin turgor, no jaundice VASCULAR: Good capillary refill, neurovascular bundle appears to be intact Labs: Labs: Laboratory Tests Test 03/22/20 22:00 White Blood Count 7.2 x10^3/uL (4.0-11.0) Red Blood Count 3.62 x10^6/uL (3.50-5.40) Hemoglobin 10.2 g/dL (12.0-15.5) Hematocrit 30.9 % (36.0-47.0) Mean Corpuscular Volume 85 fL (79-100) Mean Corpuscular Hemoglobin 28 pg (25-35) Mean Corpuscular Hemoglobin Concent 33 g/dL (31-37) Red Cell Distribution Width 19.0 % (11.5-14.5) Platelet Count 206 x10^3/uL (140-400) Neutrophils (%) (Auto) 66 % (31-73) Lymphocytes (%) (Auto) 26 % (24-48) Monocytes (%) (Auto) 7 % (0-9) Eosinophils (%) (Auto) 0 % (0-3) Basophils (%) (Auto) 1 % (0-3) Neutrophils # (Auto) 4.7 x10^3/uL (1.8-7.7) Lymphocytes # (Auto) 1.9 x10^3/uL (1.0-4.8) Monocytes # (Auto) 0.5 x10^3/uL (0.0-1.1) Eosinophils # (Auto) 0.0 x10^3/uL (0.0-0.7) Basophils # (Auto) 0.1 x10^3/uL (0.0-0.2) Segmented Neutrophils % 76 % (35-66) Lymphocytes % 14 % (24-48) Monocytes % 10 % (0-10) Toxic Granulation Slight Platelet Estimate Adequate (ADEQUATE) Polychromasia Slight Anisocytosis Slight Sodium Level 140 mmol/L (136-145) Potassium Level 5.6 mmol/L (3.5-5.1) Chloride Level 102 mmol/L (98-107) Carbon Dioxide Level 22 mmol/L (21-32) Anion Gap 16 (6-14) Blood Urea Nitrogen 78 mg/dL (7-20) Creatinine 8.8 mg/dL (0.6-1.0) Estimated GFR (Cockcroft-Gault) 5.2 BUN/Creatinine Ratio 9 (6-20) Glucose Level 135 mg/dL (70-99) Calcium Level 7.9 mg/dL (8.5-10.1) Magnesium Level 2.7 mg/dL (1.8-2.4) Total Bilirubin 0.4 mg/dL (0.2-1.0) Aspartate Amino Transf (AST/SGOT) 23 U/L (15-37) Alanine Aminotransferase (ALT/SGPT) 28 U/L (14-59) Alkaline Phosphatase 79 U/L (46-116) Total Protein 7.3 g/dL (6.4-8.2) Albumin 3.7 g/dL (3.4-5.0) Albumin/Globulin Ratio 1.0 (1.0-1.7) Laboratory Tests Test 03/22/20 22:00 White Blood Count 7.2 x10^3/uL (4.0-11.0) Red Blood Count 3.62 x10^6/uL (3.50-5.40) Hemoglobin 10.2 g/dL (12.0-15.5) Hematocrit 30.9 % (36.0-47.0) Mean Corpuscular Volume 85 fL (79-100) Mean Corpuscular Hemoglobin 28 pg (25-35) Mean Corpuscular Hemoglobin Concent 33 g/dL (31-37) Red Cell Distribution Width 19.0 % (11.5-14.5) Platelet Count 206 x10^3/uL (140-400) Neutrophils (%) (Auto) 66 % (31-73) Lymphocytes (%) (Auto) 26 % (24-48) Monocytes (%) (Auto) 7 % (0-9) Eosinophils (%) (Auto) 0 % (0-3) Basophils (%) (Auto) 1 % (0-3) Neutrophils # (Auto) 4.7 x10^3/uL (1.8-7.7) Lymphocytes # (Auto) 1.9 x10^3/uL (1.0-4.8) Monocytes # (Auto) 0.5 x10^3/uL (0.0-1.1) Eosinophils # (Auto) 0.0 x10^3/uL (0.0-0.7) Basophils # (Auto) 0.1 x10^3/uL (0.0-0.2) Segmented Neutrophils % 76 % (35-66) Lymphocytes % 14 % (24-48) Monocytes % 10 % (0-10) Toxic Granulation Slight Platelet Estimate Adequate (ADEQUATE) Polychromasia Slight Anisocytosis Slight Sodium Level 140 mmol/L (136-145) Potassium Level 5.6 mmol/L (3.5-5.1) Chloride Level 102 mmol/L (98-107) Carbon Dioxide Level 22 mmol/L (21-32) Anion Gap 16 (6-14) Blood Urea Nitrogen 78 mg/dL (7-20) Creatinine 8.8 mg/dL (0.6-1.0) Estimated GFR (Cockcroft-Gault) 5.2 BUN/Creatinine Ratio 9 (6-20) Glucose Level 135 mg/dL (70-99) Calcium Level 7.9 mg/dL (8.5-10.1) Magnesium Level 2.7 mg/dL (1.8-2.4) Total Bilirubin 0.4 mg/dL (0.2-1.0) Aspartate Amino Transf (AST/SGOT) 23 U/L (15-37) Alanine Aminotransferase (ALT/SGPT) 28 U/L (14-59) Alkaline Phosphatase 79 U/L (46-116) Total Protein 7.3 g/dL (6.4-8.2) Albumin 3.7 g/dL (3.4-5.0) Albumin/Globulin Ratio 1.0 (1.0-1.7) Images: Images 1. Occlusive DVT left internal jugular vein. 2. New arteriovenous fistula graft in the left upper extremity is patent. There is a separate old graft which is occluded. Assessment/Plan Assessment/Plan Left internal carotid thrombus ESRD on dialysis Plan Consult vascular surgery Consult nephrology Home meds DVT prophylaxis Full code Justicifation of Admission Dx: Justifications for Admission: Justification of Admission Dx: N/A GRACIELA GAN III DO Mar 23, 2020 11:36
--- NOTE | 2020-03-23 11:58 | NUR ---
SS following for discharge planning. SS reviewed pt chart and discussed with pt RN. Pt is from home and is currently on room air. Pt has outpatient dialysis at [facility], ; fax [phone], Friday, Friday, and Friday. Pt was current on services with [facility], ; fax [phone]. Vascular consulted. SS will continue to follow for discharge planning.
--- NOTE | 2020-03-23 12:02 | PDOC ---
Renal-Progress Notes Subjective Notes Notes MISSED HD History of Present Illness Hx of present illness THIS IS AN 84 YR OLD ESRD PT ON HD MWF. SHE MISSED HER TX YESTERDAY AND PER DAUGHTER WAS ACTING CONFUSED SO ADMITTED. K OF 5.6 AND LABS C/W ESRD. HX ALSO POS FOR HAVING A NEW LEFT ARM LOOP AVG AND REMOVAL OF TDC SAME TIME A WEEK AGO. NO FEVERS OR CHILLS. APPARENTLY HAS DVT AND HAS ANTICOAGULATION NEED BUT HAS PULLED OUT HER EJ LINE Vitals Vitals Vital Signs Date Time Temp Pulse Resp B/P (MAP) Pulse Ox O2 Delivery O2 Flow Rate FiO2 03/23/20 11:00 97.7 65 20 100/46 (64) 94 97.7 03/23/20 00:30 Room Air Weight Weight [ ] I.O. Intake and Output Intake and Output 03/23/20 06:59 Intake Total 120 ml Output Total 0 ml Balance 120 ml Intake Oral 120 ml Output Urine Total 0 ml Labs Labs Laboratory Tests Test 03/22/20 22:00 White Blood Count 7.2 x10^3/uL (4.0-11.0) Red Blood Count 3.62 x10^6/uL (3.50-5.40) Hemoglobin 10.2 g/dL (12.0-15.5) Hematocrit 30.9 % (36.0-47.0) Mean Corpuscular Volume 85 fL (79-100) Mean Corpuscular Hemoglobin 28 pg (25-35) Mean Corpuscular Hemoglobin Concent 33 g/dL (31-37) Red Cell Distribution Width 19.0 % (11.5-14.5) Platelet Count 206 x10^3/uL (140-400) Neutrophils (%) (Auto) 66 % (31-73) Lymphocytes (%) (Auto) 26 % (24-48) Monocytes (%) (Auto) 7 % (0-9) Eosinophils (%) (Auto) 0 % (0-3) Basophils (%) (Auto) 1 % (0-3) Neutrophils # (Auto) 4.7 x10^3/uL (1.8-7.7) Lymphocytes # (Auto) 1.9 x10^3/uL (1.0-4.8) Monocytes # (Auto) 0.5 x10^3/uL (0.0-1.1) Eosinophils # (Auto) 0.0 x10^3/uL (0.0-0.7) Basophils # (Auto) 0.1 x10^3/uL (0.0-0.2) Segmented Neutrophils % 76 % (35-66) Lymphocytes % 14 % (24-48) Monocytes % 10 % (0-10) Toxic Granulation Slight Platelet Estimate Adequate (ADEQUATE) Polychromasia Slight Anisocytosis Slight Sodium Level 140 mmol/L (136-145) Potassium Level 5.6 mmol/L (3.5-5.1) Chloride Level 102 mmol/L (98-107) Carbon Dioxide Level 22 mmol/L (21-32) Anion Gap 16 (6-14) Blood Urea Nitrogen 78 mg/dL (7-20) Creatinine 8.8 mg/dL (0.6-1.0) Estimated GFR (Cockcroft-Gault) 5.2 BUN/Creatinine Ratio 9 (6-20) Glucose Level 135 mg/dL (70-99) Calcium Level 7.9 mg/dL (8.5-10.1) Magnesium Level 2.7 mg/dL (1.8-2.4) Total Bilirubin 0.4 mg/dL (0.2-1.0) Aspartate Amino Transf (AST/SGOT) 23 U/L (15-37) Alanine Aminotransferase (ALT/SGPT) 28 U/L (14-59) Alkaline Phosphatase 79 U/L (46-116) Total Protein 7.3 g/dL (6.4-8.2) Albumin 3.7 g/dL (3.4-5.0) Albumin/Globulin Ratio 1.0 (1.0-1.7) Review of Systems Constitutional: yes: alert, oriented Ears/Nose/Throat: Yes: no symptom reported Eyes: Yes: no symptom reported Pulmonary: Yes no symptom reported Gastrointestional: Yes: constipation Genitourinary: Yes: no symptom reported Musculoskeletal: Yes: muscle stiffness Skin: Yes no symptom reported Psychiatric/Neurological: Yes: no symptom reported Endocrine: Yes: no symptom reported Physical Exam General Appearance: no apparent distress Skin: warm Respiratory: decreased breath sounds Heart: S1S2 Abdomen: soft, bowel sounds present Genitourinary: bladder flat Extremities: pulses present Neurology: alert Assessment Assessment IMP HYPERKALEMIA ESRD-MWF ANEMIA DM II DVT PLAN ANTICOAGULATION NEEDED HD TODAY UF TO DW WILL FOLLOW MAURO CASEY MD Mar 23, 2020 12:02
--- NOTE | 2020-03-23 14:10 | PDOC2 ---
CONSULT Date of Service Date of Service DATE: 03/23/20 TIME: 13:59 Reason for Consult Reason for Consult: Left IJ DVT; left arm swelling Identification/Chief Complaint Chief Complaint left arm pain / swelling Source Source: Chart review, Patient History of Present Illness Reason for Visit: Pt is an 84 y/o woman ESRD on HD who recently had a left arm immediate access graft placed by Dr Galvan at access center She presented to ED having missed dialysis and with some left arm tenderness to tough and left arm swelling. She was seen today in dialysis -- currently successfully receiving HD via left arm AVG with no issues. She denies any pain / paresthesias / weakness in the left hand, states that her left arm is only painful when touched. She has had no fever / chills / rigors, etc Her left chest has 2 sutures over a recently fresh wound that are consistent with recent left IJ tunnel catheter placement She had a duplex of the graft showing the graft and the subclavian vein are widely patent with good flow, also showed a left IJ occlusion likely thrombus. Past Medical History Cardiovascular: HTN Heme/Onc: Anemia NOS Renal/: Chronic renal insuff Past Surgical History Past Surgical History: Other Family History Family History: Hypertension Social History ALCOHOL: none Drugs: None Lives: with Family Current Problem List Problem List Problems Medical Problems: (1) Occlusion of left jugular vein Status: Acute (2) Pain and swelling of left upper extremity Status: Acute Current Medications Current Medications Current Medications Aspirin (Cherise Aspirin) 325 mg 1X ONCE PO Last administered on 03/23/20at 00:26; Start 03/23/20 at 00:00; Stop 03/23/20 at 00:01; Status DC Heparin Sodium (Porcine) (Heparin Sodium) 5,600 unit 1X ONCE IV Last administered on 03/23/20at 00:28; Start 03/23/20 at 00:00; Stop 03/23/20 at 00:01; Status DC Heparin Sodium/ Dextrose 250 ml @ 0 mls/hr CONT PRN IV PER PROTOCOL; Start 03/22/20 at 23:45 Heparin Sodium (Porcine) (Heparin Sodium) 2,100 unit PRN Q6HRS PRN IV FOR UFH LEVEL LESS THAN 0.2; Start 03/22/20 at 23:45 Heparin Sodium (Porcine) (Heparin Sodium) 1,050 unit PRN Q6HRS PRN IV FOR UFH LEVEL 0.2 - 0.29; Start 03/22/20 at 23:45 Info (Anti-Coagulation Monitoring By Pharmacy) 1 each PRN DAILY PRN MC SEE COMMENTS Last administered on 03/23/20at 00:49; Start 03/22/20 at 23:45 Enoxaparin Sodium (Lovenox 40mg Syringe) 40 mg 1X ONCE SQ Last administered on 03/23/20at 06:01; Start 03/23/20 at 05:30; Stop 03/23/20 at 05:31; Status DC Donepezil HCl (Aricept) 5 mg QHS PO ; Start 03/23/20 at 21:00 Vitamin B Complex/ Vitamin C (Sarahy-Angelia) 1 tab DAILY PO Last administered on 03/23/20at 10:18; Start 03/23/20 at 10:00 Hydralazine HCl (Apresoline) 25 mg BID PO Last administered on 03/23/20at 10:18; Start 03/23/20 at 10:00 Losartan Potassium (Cozaar) 25 mg BID PO Last administered on 03/23/20at 10:18; Start 03/23/20 at 10:00 Ziprasidone (Geodon) 20 mg HS PO ; Start 03/23/20 at 21:00 Acetaminophen/ Hydrocodone Bitart (Lortab 5/325) 1 tab PRN Q4HRS PRN PO MODERATE PAIN; Start 03/23/20 at 10:30 Active Scripts Active Reported Sarahy-Angelia Tablet (Folic Acid/Vitamin B Comp W-C) 0.8 Mg Tablet 1 Tab PO DAILY 30 Days Vitamin D2 (Ergocalciferol (Vitamin D2)) 1,250 Mcg Capsule 1,250 Mcg PO WEEKLY Donepezil Hcl 5 Mg Tablet 5 Mg PO QHS Losartan Potassium 25 Mg Tablet 25 Mg PO BID Ziprasidone Hcl 20 Mg Capsule 20 Mg PO HS Hydralazine Hcl 25 Mg Tablet 1 Tab PO BID Allergies Allergies: Coded Allergies: Sulfa (Sulfonamide Antibiotics) (Verified Allergy, Severe, "Ashkan Ubaldo's disease", 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) Physical Exam General: Alert, Oriented X3, Cooperative HEENT: Atraumatic, PERRLA Lungs: Clear to auscultation Heart: Regular rate, Normal S1, No murmurs Abdomen: Normal bowel sounds, Soft Extremities: No clubbing, Other (mild left upper extremity edema ) Skin: No rashes Neuro: Normal speech, Strength at 5/5 X4 ext, Normal tone, Sensation intact Psych/Mental Status: Mental status NL MUSCULOSKELETAL: No joint tenderness, No deformity Vitals VITALS Vital Signs Date Time Temp Pulse Resp B/P (MAP) Pulse Ox O2 Delivery O2 Flow Rate FiO2 03/23/20 11:00 97.7 65 20 100/46 (64) 94 97.7 03/23/20 00:30 Room Air Labs Labs Laboratory Tests Test 03/22/20 22:00 White Blood Count 7.2 x10^3/uL (4.0-11.0) Red Blood Count 3.62 x10^6/uL (3.50-5.40) Hemoglobin 10.2 g/dL (12.0-15.5) Hematocrit 30.9 % (36.0-47.0) Mean Corpuscular Volume 85 fL (79-100) Mean Corpuscular Hemoglobin 28 pg (25-35) Mean Corpuscular Hemoglobin Concent 33 g/dL (31-37) Red Cell Distribution Width 19.0 % (11.5-14.5) Platelet Count 206 x10^3/uL (140-400) Neutrophils (%) (Auto) 66 % (31-73) Lymphocytes (%) (Auto) 26 % (24-48) Monocytes (%) (Auto) 7 % (0-9) Eosinophils (%) (Auto) 0 % (0-3) Basophils (%) (Auto) 1 % (0-3) Neutrophils # (Auto) 4.7 x10^3/uL (1.8-7.7) Lymphocytes # (Auto) 1.9 x10^3/uL (1.0-4.8) Monocytes # (Auto) 0.5 x10^3/uL (0.0-1.1) Eosinophils # (Auto) 0.0 x10^3/uL (0.0-0.7) Basophils # (Auto) 0.1 x10^3/uL (0.0-0.2) Segmented Neutrophils % 76 % (35-66) Lymphocytes % 14 % (24-48) Monocytes % 10 % (0-10) Toxic Granulation Slight Platelet Estimate Adequate (ADEQUATE) Polychromasia Slight Anisocytosis Slight Sodium Level 140 mmol/L (136-145) Potassium Level 5.6 mmol/L (3.5-5.1) Chloride Level 102 mmol/L (98-107) Carbon Dioxide Level 22 mmol/L (21-32) Anion Gap 16 (6-14) Blood Urea Nitrogen 78 mg/dL (7-20) Creatinine 8.8 mg/dL (0.6-1.0) Estimated GFR (Cockcroft-Gault) 5.2 BUN/Creatinine Ratio 9 (6-20) Glucose Level 135 mg/dL (70-99) Calcium Level 7.9 mg/dL (8.5-10.1) Magnesium Level 2.7 mg/dL (1.8-2.4) Total Bilirubin 0.4 mg/dL (0.2-1.0) Aspartate Amino Transf (AST/SGOT) 23 U/L (15-37) Alanine Aminotransferase (ALT/SGPT) 28 U/L (14-59) Alkaline Phosphatase 79 U/L (46-116) Total Protein 7.3 g/dL (6.4-8.2) Albumin 3.7 g/dL (3.4-5.0) Albumin/Globulin Ratio 1.0 (1.0-1.7) Laboratory Tests Test 03/22/20 22:00 White Blood Count 7.2 x10^3/uL (4.0-11.0) Red Blood Count 3.62 x10^6/uL (3.50-5.40) Hemoglobin 10.2 g/dL (12.0-15.5) Hematocrit 30.9 % (36.0-47.0) Mean Corpuscular Volume 85 fL (79-100) Mean Corpuscular Hemoglobin 28 pg (25-35) Mean Corpuscular Hemoglobin Concent 33 g/dL (31-37) Red Cell Distribution Width 19.0 % (11.5-14.5) Platelet Count 206 x10^3/uL (140-400) Neutrophils (%) (Auto) 66 % (31-73) Lymphocytes (%) (Auto) 26 % (24-48) Monocytes (%) (Auto) 7 % (0-9) Eosinophils (%) (Auto) 0 % (0-3) Basophils (%) (Auto) 1 % (0-3) Neutrophils # (Auto) 4.7 x10^3/uL (1.8-7.7) Lymphocytes # (Auto) 1.9 x10^3/uL (1.0-4.8) Monocytes # (Auto) 0.5 x10^3/uL (0.0-1.1) Eosinophils # (Auto) 0.0 x10^3/uL (0.0-0.7) Basophils # (Auto) 0.1 x10^3/uL (0.0-0.2) Segmented Neutrophils % 76 % (35-66) Lymphocytes % 14 % (24-48) Monocytes % 10 % (0-10) Toxic Granulation Slight Platelet Estimate Adequate (ADEQUATE) Polychromasia Slight Anisocytosis Slight Sodium Level 140 mmol/L (136-145) Potassium Level 5.6 mmol/L (3.5-5.1) Chloride Level 102 mmol/L (98-107) Carbon Dioxide Level 22 mmol/L (21-32) Anion Gap 16 (6-14) Blood Urea Nitrogen 78 mg/dL (7-20) Creatinine 8.8 mg/dL (0.6-1.0) Estimated GFR (Cockcroft-Gault) 5.2 BUN/Creatinine Ratio 9 (6-20) Glucose Level 135 mg/dL (70-99) Calcium Level 7.9 mg/dL (8.5-10.1) Magnesium Level 2.7 mg/dL (1.8-2.4) Total Bilirubin 0.4 mg/dL (0.2-1.0) Aspartate Amino Transf (AST/SGOT) 23 U/L (15-37) Alanine Aminotransferase (ALT/SGPT) 28 U/L (14-59) Alkaline Phosphatase 79 U/L (46-116) Total Protein 7.3 g/dL (6.4-8.2) Albumin 3.7 g/dL (3.4-5.0) Albumin/Globulin Ratio 1.0 (1.0-1.7) Images Images concern for left IJ occlusion, likely acute left graft and subclavian widely patent Assessment/Plan Assessment/Plan patent left arm AVG functioning for HD no evidence of infection left IJ occlusion likely due to recent IJ catheter that has been removed In terms of the upper arm swelling and pain --> no evidence the graft is infected. As this was placed by another surgeon (not our group) recommend she follow up with Dr Galvan who placed the graft to evaluate for her pain and tenderness In terms of the IJ thrombus -- no surgery needed catheter (likely the cause) has been removed Recommend follow CHEST guidelines for anticoagulation ([facility] does not manage anticoagulation) No acute surgery needed follow up with Dr Galvan. AGUSTO VASQUEZ MD Mar 23, 2020 14:09
[2020-03-23] MEDS: HYDROcodone/APAP 5/325MG 1 TAB TABLET PO PRN (15:45)
[2020-03-23] MEDS ORDERED: IV NORMAL SALINE 1000ML BAG 1,000 ML IV PRN ×2 (16:48)
[2020-03-23] MEDS ORDERED: ALBUMIN HUMAN 25% 200 ML IV PRN (17:00)
[2020-03-23] MEDS ORDERED: DIALYSIS PATIENT. MC PRN ×2 (17:00)
[2020-03-23] MEDS: ZIPRASIDONE 20 MG CAPSULE PO SCH (20:29)
[2020-03-23] MEDS: DONEPEZIL HCL 5 MG TABLET. PO SCH (20:30)
[2020-03-24 03:00] VITALS: BP 133/61
[2020-03-24 05:05] LABS: HEMATOCRIT 25.3 % (36.0-47.0); HEMOGLOBIN 8.3 g/dL (12.0-15.5); RED BLOOD COUNT 2.96 x10^6/uL (3.50-5.40); RED CELL DISTRIBUTION WIDTH 18.5 % (11.5-14.5); WHITE BLOOD COUNT 3.8 x10^3/uL (4.0-11.0)
[2020-03-24 07:00] VITALS: BP 135/56
[2020-03-24] MEDS ORDERED: IV NORMAL SALINE 1000ML BAG 1,000 ML IV PRN ×2 (08:37)
[2020-03-24] MEDS ORDERED: ALBUMIN HUMAN 25% 200 ML IV PRN (08:45)
[2020-03-24] MEDS ORDERED: DIALYSIS PATIENT. MC PRN ×2 (08:45)
[2020-03-24 09:14] LABS: CALCIUM 6.9 mg/dL (8.5-10.1); CREATININE 3.9 mg/dL (0.6-1.0); GFR 13.3; POTASSIUM 3.6 mmol/L (3.5-5.1)
[2020-03-24] MEDS: HYDROcodone/APAP 5/325MG 1 TAB TABLET PO PRN (09:39)
--- NOTE | 2020-03-24 10:43 | NUR ---
SS following up with discharge planning. SS reviewed pt chart and discussed with pt RN. Pt is currently on room air. Pt had clot in IJ. Pt getting central line today. Per RN, pt needing Heparin drip. PT/OT being ordered. SS will continue to follow for discharge planning.
--- NOTE | 2020-03-24 10:46 | PDOC ---
[facility] [facility] PROGRESS NOTE Date of Service DOS: DATE: 03/24/20 TIME: 10:31 Chief Complaint Chief Complaint Left internal carotid thrombus Clotted dialysis shunt ESRD on dialysis Hypertension Hyperkalemia Anemia DM II DVT History of Present Illness History of Present Illness 03/24/2020 Patient seen and examined in dialysis Patient complains of left arm pain, there is no evidence of infection per vascular surgery Catheter has been removed which is likely the cause of the left internal jugular occlusion Vascular surgery is not recommending surgery at this time Left arm AVG is functioning for HD at this time Discussed with RN Chart reviewed Vitals/I&O Vitals/I&O: Vital Signs Date Time Temp Pulse Resp B/P (MAP) Pulse Ox O2 Delivery O2 Flow Rate FiO2 03/24/20 09:39 Room Air 03/24/20 07:00 97.6 51 19 135/56 (82) 99 97.6 I & O 03/23/20 03/23/20 03/24/20 15:00 23:00 07:00 Intake Total 500 ml 200 ml 200 ml Balance 500 ml 200 ml 200 ml Physical Exam General: Alert, Cooperative, No acute distress Heart: Regular rate, Normal S1, No murmurs Lungs: Clear Abdomen: Normal bowel sounds, Soft, No tenderness Extremities: No clubbing, No cyanosis, Other (mild left upper extremity edema ) Skin: No rashes, No breakdown, No significant lesion Labs Labs: Laboratory Tests Test 03/24/20 04:00 03/24/20 09:50 White Blood Count 3.8 x10^3/uL (4.0-11.0) Red Blood Count 2.96 x10^6/uL (3.50-5.40) Hemoglobin 8.3 g/dL (12.0-15.5) Hematocrit 25.3 % (36.0-47.0) Mean Corpuscular Volume 85 fL (79-100) Mean Corpuscular Hemoglobin 28 pg (25-35) Mean Corpuscular Hemoglobin Concent 33 g/dL (31-37) Red Cell Distribution Width 18.5 % (11.5-14.5) Platelet Count 185 x10^3/uL (140-400) Sodium Level 138 mmol/L (136-145) Potassium Level 3.6 mmol/L (3.5-5.1) Chloride Level 100 mmol/L (98-107) Carbon Dioxide Level 31 mmol/L (21-32) Anion Gap 7 (6-14) Blood Urea Nitrogen 29 mg/dL (7-20) Creatinine 3.9 mg/dL (0.6-1.0) Estimated GFR (Cockcroft-Gault) 13.3 Glucose Level 102 mg/dL (70-99) Calcium Level 6.9 mg/dL (8.5-10.1) Assessment and Plan Assessmemt and Plan Problems Medical Problems: (1) Occlusion of left jugular vein Status: Acute (2) Pain and swelling of left upper extremity Status: Acute ASSESSMENT Left internal carotid thrombus Clotted dialysis shunt ESRD on dialysis Hypertension Hyperkalemia Anemia DM II DVT PLAN Continue dialysis M/W/F Central line placement today Cardiac monitoring Trend labs Home meds DVT prophylaxis Full code Appreciate subspecialty input Comment Review of Relevant I have reviewed the following items rose (where applicable) has been applied. Medications: Current Medications Medications (Trade) Dose Ordered Sig/Diana Route PRN Reason Start Time Stop Time Status Last Admin Dose Admin Donepezil HCl (Aricept) 5 mg QHS PO 03/23/20 21:00 03/23/20 20:30 Ziprasidone (Geodon) 20 mg HS PO 03/23/20 21:00 03/23/20 20:29 Justicifation of Admission Dx: Justifications for Admission: Justification of Admission Dx: N/A GRACIELA GAN III DO Mar 24, 2020 10:45
--- NOTE | 2020-03-24 11:27 | PDOC ---
Renal-Progress Notes Subjective Notes Notes FEELING BETTER History of Present Illness Hx of present illness STABLE Vitals Vitals Vital Signs Date Time Temp Pulse Resp B/P (MAP) Pulse Ox O2 Delivery O2 Flow Rate FiO2 03/24/20 09:39 Room Air 03/24/20 07:00 97.6 51 19 135/56 (82) 99 97.6 Weight Weight [ ] I.O. Intake and Output Intake and Output 03/24/20 07:00 Intake Total 900 ml Balance 900 ml Intake Oral 900 ml Labs Labs Laboratory Tests Test 03/24/20 04:00 03/24/20 09:50 White Blood Count 3.8 x10^3/uL (4.0-11.0) Red Blood Count 2.96 x10^6/uL (3.50-5.40) Hemoglobin 8.3 g/dL (12.0-15.5) Hematocrit 25.3 % (36.0-47.0) Mean Corpuscular Volume 85 fL (79-100) Mean Corpuscular Hemoglobin 28 pg (25-35) Mean Corpuscular Hemoglobin Concent 33 g/dL (31-37) Red Cell Distribution Width 18.5 % (11.5-14.5) Platelet Count 185 x10^3/uL (140-400) Sodium Level 138 mmol/L (136-145) Potassium Level 3.6 mmol/L (3.5-5.1) Chloride Level 100 mmol/L (98-107) Carbon Dioxide Level 31 mmol/L (21-32) Anion Gap 7 (6-14) Blood Urea Nitrogen 29 mg/dL (7-20) Creatinine 3.9 mg/dL (0.6-1.0) Estimated GFR (Cockcroft-Gault) 13.3 Glucose Level 102 mg/dL (70-99) Calcium Level 6.9 mg/dL (8.5-10.1) Review of Systems Constitutional: yes: alert, oriented Ears/Nose/Throat: Yes: no symptom reported Eyes: Yes: no symptom reported Pulmonary: Yes no symptom reported Gastrointestional: Yes: constipation Genitourinary: Yes: no symptom reported Musculoskeletal: Yes: muscle stiffness Skin: Yes no symptom reported Psychiatric/Neurological: Yes: no symptom reported Endocrine: Yes: no symptom reported Physical Exam General Appearance: no apparent distress Skin: warm Respiratory: decreased breath sounds Heart: S1S2 Abdomen: soft, bowel sounds present Genitourinary: bladder flat Extremities: pulses present Neurology: alert Assessment Assessment IMP HYPERKALEMIA ESRD-MWF ANEMIA DM II DVT PLAN HD TODAY UF TO DW WILL FOLLOW MAURO CASEY MD Mar 24, 2020 11:27
[2020-03-24] MEDS: FOLIC/VIT B COMP W-C (RENAL) TABLET. PO SCH (13:09)
[2020-03-24] MEDS: LOSARTAN POTASSIUM 25 MG TABLET. PO SCH ×2 (13:10→20:49)
[2020-03-24] MEDS: hydrALAZINE 25 MG TABLET PO SCH ×2 (13:11→20:48)
[2020-03-24] MEDS: ANTI-COAG MONITOR BY PHARMACY. MC PRN (13:39)
[2020-03-24 15:00] VITALS: BP 116/38
[2020-03-24] MEDS: HEPARIN 25,000UTS/250ML PREMIX 250 ML IV PRN (15:29)
--- NOTE | 2020-03-24 16:55 | RAD ---
Procedure: Ultrasound and fluoroscopically guided placement of right internal jugular central venous catheter03/24/2020 2:50 PM Clinical Indication: LIMB RESTRICTIONS BILATERALLY, IV ACCESS Discussion: The risks and benefits of the procedure were discussed the patient and/or their sales representative facility services. Informed consent was obtained. A timeout procedure was performed. All elements of maximal sterile barrier technique including the use of a cap, mask, sterile gown, sterile gloves, large sterile sheet, appropriate hand hygiene, and 2% chlorhexidine for cutaneous antisepsis (or acceptable alternative antiseptic per current guidelines) were followed for this procedure. The patient was prepped and draped in the usual sterile fashion. Ultrasound interrogation of the right neck revealed patency and compressibility of the right internal jugular vein. A 21-gauge micropuncture was then used to gain access to this vein under ultrasound guidance. A hard copy ultrasound image was recorded. A guidewire was advanced centrally. 5 [place] sheath was placed. Over a wire following dilatation, a triple-lumen central venous catheter was advanced centrally. Catheter was found to flush and aspirate normally. Catheter position confirmed under fluoroscopy. Total fluoroscopy time 0.3 minutes Dose area product 1 rojas centimeters squared. Catheter secured in place and a sterile dressing was applied. No immediate complications were identified. Impression: Right internal jugular central line placement
[2020-03-24 19:00] VITALS: BP 114/54
[2020-03-24] MEDS: DONEPEZIL HCL 5 MG TABLET. PO SCH (20:48)
[2020-03-24] MEDS: ZIPRASIDONE 20 MG CAPSULE PO SCH (20:48)
[2020-03-24] MEDS ORDERED: DARBEPOETIN ALFA 60 MCG/0.3 ML DISP.SYRIN. SQ SCH (21:00)
[2020-03-24 23:15] VITALS: BP 127/83
[2020-03-25 03:29] VITALS: BP 136/88
[2020-03-25] MEDS: HEPARIN 25,000UTS/250ML PREMIX 250 ML IV PRN (05:22)
[2020-03-25 07:00] VITALS: BP 145/69
[2020-03-25] MEDS: FOLIC/VIT B COMP W-C (RENAL) TABLET. PO SCH (08:59)
[2020-03-25] MEDS: hydrALAZINE 25 MG TABLET PO SCH ×2 (09:00→22:11)
[2020-03-25] MEDS: LOSARTAN POTASSIUM 25 MG TABLET. PO SCH ×2 (09:00→22:11)
[2020-03-25] MEDS: ANTI-COAG MONITOR BY PHARMACY. MC PRN (10:41)
[2020-03-25 11:24] VITALS: BP 131/44
--- NOTE | 2020-03-25 12:43 | PDOC ---
[facility] PROGRESS NOTE Date of Service DOS: DATE: 03/25/20 TIME: 12:33 Chief Complaint Chief Complaint Left internal carotid thrombus Clotted dialysis shunt ESRD on dialysis Hypertension Hyperkalemia Anemia DM II DVT History of Present Illness History of Present Illness 03/25/2020 Patient is seen and examined Patient is sitting up and in light mood Discussed with patient and daughter CDI left arm AVG Charts reviewed Discussed with RN 03/24/2020 Patient seen and examined in dialysis Patient complains of left arm pain, there is no evidence of infection per vascular surgery Catheter has been removed which is likely the cause of the left internal jugular occlusion Vascular surgery is not recommending surgery at this time Left arm AVG is functioning for HD at this time Discussed with RN Chart reviewed Vitals/I&O Vitals/I&O: Vital Signs Date Time Temp Pulse Resp B/P (MAP) Pulse Ox O2 Delivery O2 Flow Rate FiO2 03/25/20 11:24 97.6 61 20 131/44 (73) 99 Room Air 97.6 I & O 03/24/20 03/24/20 03/25/20 15:00 23:00 07:00 Intake Total 220 ml 0 ml Balance 220 ml 0 ml Physical Exam General: Alert, Cooperative, No acute distress Heart: Regular rate, Normal S1, No murmurs Lungs: Clear Abdomen: Normal bowel sounds, Soft, No tenderness Extremities: No clubbing, No cyanosis, Other (mild left upper extremity edema ) Skin: No rashes, No breakdown, No significant lesion Labs Labs: Laboratory Tests Test 03/24/20 22:20 03/25/20 05:20 Heparin Anti-Xa Act, Unfractionated 0.76 IU/mL (0.30-0.70) 0.69 IU/mL (0.30-0.70) Review of Systems Review of Systems: All other systems are otherwise negative Assessment and Plan Assessmemt and Plan Problems Medical Problems: (1) Occlusion of left jugular vein Status: Acute (2) Pain and swelling of left upper extremity Status: Acute Assessment Left internal carotid thrombus Clotted dialysis shunt ESRD on dialysis Hypertension Hyperkalemia Anemia DM II DVT Plan Continue dialysis M/W/F Cardiac monitoring Continue heparin protocol Trend labs Home meds DVT prophylaxis Appreciate subspecialty input D/C disposition pending - Daughter prefers SNU Comment Review of Relevant I have reviewed the following items rose (where applicable) has been applied. Medications: Current Medications Medications (Trade) Dose Ordered Sig/Diana Route PRN Reason Start Time Stop Time Status Last Admin Dose Admin Darbepoetin Mike (ARANESP for DIALYSIS PTS) 60 mcg WEEKLYHS SQ 03/24/20 21:00 03/24/20 20:49 Justicifation of Admission Dx: Justifications for Admission: Justification of Admission Dx: N/A GRACIELA GAN III DO Mar 25, 2020 12:43
[2020-03-25 15:00] VITALS: BP 161/50
[2020-03-25 19:55] VITALS: BP 149/52
[2020-03-25] MEDS: ZIPRASIDONE 20 MG CAPSULE PO SCH (22:10)
[2020-03-25] MEDS: DONEPEZIL HCL 5 MG TABLET. PO SCH (22:11)
[2020-03-25 23:55] VITALS: BP 181/78
[2020-03-26 06:43] LABS: HEMATOCRIT 25.5 % (36.0-47.0); HEMOGLOBIN 8.4 g/dL (12.0-15.5); RED BLOOD COUNT 2.99 x10^6/uL (3.50-5.40); RED CELL DISTRIBUTION WIDTH 19.1 % (11.5-14.5); WHITE BLOOD COUNT 4.6 x10^3/uL (4.0-11.0)
[2020-03-26] MEDS: FOLIC/VIT B COMP W-C (RENAL) TABLET. PO SCH (09:55)
[2020-03-26] MEDS: hydrALAZINE 25 MG TABLET PO SCH ×2 (09:56→20:22)
[2020-03-26] MEDS: LOSARTAN POTASSIUM 25 MG TABLET. PO SCH ×2 (09:56→20:23)
[2020-03-26] MEDS: HEPARIN 25,000UTS/250ML PREMIX 250 ML IV PRN (09:58)
[2020-03-26 11:00] VITALS: BP 154/64
--- NOTE | 2020-03-26 12:28 | PDOC ---
[facility] PROGRESS NOTE Date of Service DOS: DATE: 03/26/20 TIME: 12:08 Chief Complaint Chief Complaint Left internal carotid thrombus Clotted dialysis shunt ESRD on dialysis Hypertension Hyperkalemia Anemia DM II DVT History of Present Illness History of Present Illness 03/26/2020 Patient is seen and examined Patient is pleasantly confused CDI left arm AVG Charts reviewed Discussed with RN 03/25/2020 Patient is seen and examined Patient is sitting up and in light mood Discussed with patient and daughter CDI left arm AVG Charts reviewed Discussed with RN 03/24/2020 Patient seen and examined in dialysis Patient complains of left arm pain, there is no evidence of infection per vascular surgery Catheter has been removed which is likely the cause of the left internal jugular occlusion Vascular surgery is not recommending surgery at this time Left arm AVG is functioning for HD at this time Discussed with RN Chart reviewed Vitals/I&O Vitals/I&O: Vital Signs Date Time Temp Pulse Resp B/P (MAP) Pulse Ox O2 Delivery O2 Flow Rate FiO2 03/26/20 11:00 97.5 54 20 154/64 (94) 97 Room Air 97.5 l I & O 03/25/20 03/25/20 03/26/20 15:00 23:00 07:00 Intake Total 300 ml 240 ml Output Total 100 ml Balance 200 ml 240 ml Physical Exam General: Alert, Cooperative, No acute distress, Other (pleasantly confused) Heart: Regular rate, Normal S1, No murmurs Lungs: Clear Abdomen: Normal bowel sounds, Soft, No tenderness Extremities: No clubbing, No cyanosis, Other (mild left upper extremity edema ) Skin: No rashes, No breakdown, No significant lesion Labs Labs: Laboratory Tests Test 03/25/20 15:45 03/26/20 00:20 03/26/20 06:40 Heparin Anti-Xa Act, Unfractionated > 1.10 IU/mL (0.30-0.70) 0.70 IU/mL (0.30-0.70) 0.60 IU/mL (0.30-0.70) White Blood Count 4.6 x10^3/uL (4.0-11.0) Red Blood Count 2.99 x10^6/uL (3.50-5.40) Hemoglobin 8.4 g/dL (12.0-15.5) Hematocrit 25.5 % (36.0-47.0) Mean Corpuscular Volume 85 fL (79-100) Mean Corpuscular Hemoglobin 28 pg (25-35) Mean Corpuscular Hemoglobin Concent 33 g/dL (31-37) Red Cell Distribution Width 19.1 % (11.5-14.5) Platelet Count 209 x10^3/uL (140-400) Assessment and Plan Assessmemt and Plan Problems Medical Problems: (1) Occlusion of left jugular vein Status: Acute (2) Pain and swelling of left upper extremity Status: Acute ASSESSMENT Left internal carotid thrombus Clotted dialysis shunt ESRD on dialysis Hypertension Hyperkalemia Anemia DM II DVT PLAN D/C disposition pending - Daughter prefers SNU Continue dialysis M/W/F Cardiac monitoring Continue heparin protocol, change to PO prior to discharge Trend labs Home meds DVT prophylaxis Appreciate subspecialty input Comment Review of Relevant I have reviewed the following items rose (where applicable) has been applied. Justicifation of Admission Dx: Justifications for Admission: Justification of Admission Dx: N/A GRACIELA GAN III DO Mar 26, 2020 12:28
[2020-03-26 15:00] VITALS: BP 146/41
[2020-03-26 19:30] VITALS: BP 181/44
[2020-03-26] MEDS: ZIPRASIDONE 20 MG CAPSULE PO SCH (20:21)
[2020-03-26] MEDS: DONEPEZIL HCL 5 MG TABLET. PO SCH (20:23)
[2020-03-26] MEDS: HYDROcodone/APAP 5/325MG 1 TAB TABLET PO PRN (20:24)
[2020-03-26 23:00] VITALS: BP 165/46
[2020-03-27 07:00] VITALS: BP 129/44
[2020-03-27] MEDS ORDERED: IV NORMAL SALINE 1000ML BAG 1,000 ML IV PRN ×2 (07:53)
[2020-03-27] MEDS ORDERED: DIALYSIS PATIENT. MC PRN (08:00)
[2020-03-27] MEDS ORDERED: diphenhydrAMINE 50 MG/ML VIAL IV PRN ×2 (08:00)
--- NOTE | 2020-03-27 09:37 | PDOC ---
DATE OF SERVICE DATE: 03/27/20 TIME: 09:29 SUBJECTIVE ROS Seen on HD , denies any complaints OBJECTIVE Vital Signs Vital Signs Date Time Temp Pulse Resp B/P (MAP) Pulse Ox O2 Delivery O2 Flow Rate FiO2 03/27/20 03:31 68 18 03/26/20 23:00 97.1 165/46 (85) 99 Room Air 97.1 I & 0 Intake and Output 03/27/20 07:00 Intake Total 560 ml Output Total 0 ml Balance 560 ml Intake Oral 460 ml IV Total 100 ml Output Urine Total 0 ml PHYSICAL EXAM Physical Exam General Appearance: no apparent distress Skin: No rash Respiratory: decreased breath sounds at bases, Non labored Heart: S1S2 Abdomen: soft, bowel sounds present Genitourinary: No houser Extremities: No LE edema Neurology: alert DIAGNOSIS/ASSESSMENT Assessment & Plan ESRD - On HD MWF Seen on HD, tolerating well, discussed treatment plan with Kaylin Left upper arm swelling- seen by vascular - AVG functioning for HD no evidence the graft is infected. 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 that has been removed no surgery needed per vascular Anticoagulation per primary Hypertension - Antihypertensives Hyperkalemia - K normal Anemia - ELISEO per protocol DM II DVT COMMENT/RELEVANT DATA Meds Current Medications Medications (Trade) Dose Ordered Sig/Diana Start Time Stop Time Status Last Admin Dose Admin Acetaminophen/ Hydrocodone Bitart (Lortab 5/325) 1 tab PRN Q4HRS PRN 03/23/20 10:30 03/26/20 20:24 1 TAB Albumin Human 200 ml @ 200 mls/hr 1X PRN PRN 03/24/20 08:45 03/24/20 14:44 DC Aspirin (Cherise Aspirin) 325 mg 1X ONCE 03/23/20 00:00 03/23/20 00:01 DC 03/23/20 00:26 325 MG Darbepoetin Mike (ARANESP for DIALYSIS PTS) 60 mcg WEEKLYHS 03/24/20 21:00 03/24/20 20:49 60 MCG Diphenhydramine HCl (Benadryl) 25 mg 1X PRN PRN 03/27/20 08:00 03/28/20 07:59 Donepezil HCl (Aricept) 5 mg QHS 03/23/20 21:00 03/26/20 20:23 5 MG Enoxaparin Sodium (Lovenox 40mg Syringe) 40 mg 1X ONCE 03/23/20 05:30 03/23/20 05:31 DC 03/23/20 06:01 40 MG Heparin Sodium (Porcine) (Heparin Sodium) 1,050 unit PRN Q6HRS PRN 03/22/20 23:45 Heparin Sodium/ Dextrose 250 ml @ 0 mls/hr CONT PRN 03/22/20 23:45 03/26/20 09:58 8.4 MLS/HR Hydralazine HCl (Apresoline) 25 mg BID 03/23/20 10:00 03/26/20 20:22 25 MG Info (Anti-Coagulation Monitoring By Pharmacy) 1 each PRN DAILY PRN 03/22/20 23:45 03/25/20 10:41 1 EACH Info (PHARMACY MONITORING -- do not chart) 1 each PRN DAILY PRN 03/27/20 08:00 Losartan Potassium (Cozaar) 25 mg BID 03/23/20 10:00 03/26/20 20:23 25 MG Sodium Chloride 1,000 ml @ 400 mls/hr Q2H30M PRN 03/27/20 07:53 03/27/20 19:52 Vitamin B Complex/ Vitamin C (Sarahy-Angelia) 1 tab DAILY 03/23/20 10:00 03/26/20 09:55 1 TAB Ziprasidone (Geodon) 20 mg HS 03/23/20 21:00 03/26/20 20:21 20 MG Lab Laboratory Tests Test 03/27/20 06:20 Heparin Anti-Xa Act, Unfractionated 0.45 IU/mL (0.30-0.70) Results All relevant outside records, renal labs, imaging studies, telemetry/EKG's were reviewed. Justicifation of Admission Dx: Justifications for Admission: Justification of Admission Dx: N/A SALVADOR KOWALSKI MD Mar 27, 2020 09:37
[2020-03-27 09:43] LABS: CALCIUM 6.2 mg/dL (8.5-10.1); CREATININE 7.2 mg/dL (0.6-1.0); GFR 6.6; POTASSIUM 5.1 mmol/L (3.5-5.1)
--- NOTE | 2020-03-27 12:35 | SNU/HH DC ---
DISCHARGE ORDERS DISCHARGE INFORMATION: FINAL DIAGNOSIS Problems Medical Problems: (1) Occlusion of left jugular vein Status: Acute (2) Pain and swelling of left upper extremity Status: Acute CONDITION ON DISCHARGE: Stable CODE STATUS: Code Status: Full PENITENTIARY: SNF STAY <30 DAYS: Yes HOSPICE: HOSPICE: No HOSPICE EVAL & TREAT: No LTAC: ADMIT TO LTAC: No POST DISCHARGE ORDERS: ACTIVITY ORDERS: Activity as tolerated WEIGHT BEARING STATUS: As tolerated DIET AFTER DISCHARGE: ADA CHECKS AFTER DISCHARGE: CHECKS AFTER DISCHARGE: Check blood press - daily TREATMENT/EQUIPMENT ORDERS: ADAPTIVE EQUIPMENT NEEDED: None Physical Therapy For: Evalulation/Treatment Occupational Therapy For: Evaluation/Treatment Speech Language Pathology For: Evaluation/Treatment DISCHARGE MEDICATIONS: Home Meds Reported Medications Folic Acid/Vitamin B Comp W-C (BRUCE-MALU TABLET) 0.8 Mg Tablet, 1 TAB PO DAILY for FOR DIALYSIS PT for 30 Days, #30 TAB 0 Refills 03/23/20 Ergocalciferol (Vitamin D2) (Vitamin D2) 1,250 Mcg Capsule, 1250 MCG PO WEEKLY for 03/03/20 Donepezil Hcl (DONEPEZIL HCL) 5 Mg Tablet, 5 MG PO QHS for 03/03/20 Losartan Potassium (Losartan Potassium) 25 Mg Tablet, 25 MG PO BID for , TAB 03/03/20 Ziprasidone Hcl (ZIPRASIDONE HCL) 20 Mg Capsule, 20 MG PO HS for bipolar 01/03/20 Hydralazine Hcl (HYDRALAZINE HCL) 25 Mg Tablet, 1 TAB PO BID for hypertension, #90 TAB 5 Refills 08/04/19 GRACIELA GAN III DO Mar 27, 2020 12:35
--- NOTE | 2020-03-27 12:53 | SNU/HH DC ---
DISCHARGE WITH HOME HEALTH DISCHARGE INFORMATION: Final Diagnosis: Problems Medical Problems: (1) Occlusion of left jugular vein Status: Acute (2) Pain and swelling of left upper extremity Status: Acute Condition on Discharge: Stable CODE STATUS: Code Status: Full HOME HEALTH: Face to Face: I certify this patient is under my care and that I, or a nurse practitioner or physician's infertility medical assistant working with me, had a face to face encounter that meets the physician face to face encounter requirements with this patient on []. Medical Complications: Other (Recent hip fracture) RN For Eval/Treatment: Yes Physical Therapy For: Evalulation/Treatment Occupational Therapy For: Evaluation/Treatment Home Health Aide For: Self-care GARBAGE MAN For: Community Resources Pt Meets Homebound Status: Poor coordination w/ amb. POST DISCHARGE ORDERS: Activity Instructions for Disc: Activity as tolerated Weight Bearing Status after Di: As tolerated DIET AFTER DISCHARGE: ADA CHECKS AFTER DISCHARGE: Checks after discharge: Check blood press - daily TREATMENT/EQUIPMENT ORDERS: Adaptive Equipment Issued: None CERTIFICATION STATEMENT: Certification Statement: Certification Statement: Based on the above finding, I certify that this patient is confined to the home and needs intermittent fci care, physical therapy and/or speech therapy, or continues to need occupational therapy.~ This patient is under my care, and I have initiated the establishment of the plan of care.~ This patient will be followed by myself or a community physician who will periodically review the plan of care. Home Meds Reported Medications Folic Acid/Vitamin B Comp W-C (BRUCE-MALU TABLET) 0.8 Mg Tablet, 1 TAB PO DAILY for FOR DIALYSIS PT for 30 Days, #30 TAB 0 Refills 03/23/20 Ergocalciferol (Vitamin D2) (Vitamin D2) 1,250 Mcg Capsule, 1250 MCG PO WEEKLY for 03/03/20 Donepezil Hcl (DONEPEZIL HCL) 5 Mg Tablet, 5 MG PO QHS for 03/03/20 Losartan Potassium (Losartan Potassium) 25 Mg Tablet, 25 MG PO BID for , TAB 03/03/20 Ziprasidone Hcl (ZIPRASIDONE HCL) 20 Mg Capsule, 20 MG PO HS for bipolar 01/03/20 Hydralazine Hcl (HYDRALAZINE HCL) 25 Mg Tablet, 1 TAB PO BID for hypertension, #90 TAB 5 Refills 08/04/19 GRACIELA GAN III DO Mar 27, 2020 12:53
[2020-03-27] MEDS ORDERED: APIXABAN 5 MG TABLET. PO SCH (13:00)
[2020-03-27] MEDS: FOLIC/VIT B COMP W-C (RENAL) TABLET. PO SCH (13:19)
[2020-03-27] MEDS: HYDROcodone/APAP 5/325MG 1 TAB TABLET PO PRN (13:20)
[2020-03-27] MEDS: LOSARTAN POTASSIUM 25 MG TABLET. PO SCH (13:20)
[2020-03-27] MEDS: hydrALAZINE 25 MG TABLET PO SCH (13:20)
[2020-03-27] MEDS: ANTI-COAG MONITOR BY PHARMACY. MC PRN (13:47)
[2020-03-27 15:42] VITALS: BP 116/53
[2020-03-27] MEDS ORDERED: APIX5TAB PO ×2 (16:34→16:35)
--- NOTE | 2020-03-27 18:24 | NUR ---
Discharge Note: SOCORRO PAN Discharge instructions and discharge home medications reviewed with Patient and a copy given. All questions have been answered and understanding verbalized. The following instructions and handouts were given: eliquis and remove central line bandage in 24 hours. Discontinued lines and drains: discontinued central line. Patient discharged to home with home health via wheelchair acompanied by family.
--- NOTE | 2020-03-30 12:19 | DS ---
DATE OF DISCHARGE: 03/27/2020 ADMISSION DIAGNOSES: Left arm pain and swelling, chronic renal failure, left internal jugular deep venous thrombosis. DISCHARGE DIAGNOSIS: Resolving deep venous thrombosis. CONSULTS: Vascular Surgery and Nephrology. PROCEDURES: Dialysis. HOSPITAL COURSE: The patient is a pleasant 84-year-old female who presented with some left arm swelling. She had had a recent graft placed in her left arm for dialysis. The graft was swollen. The old graft had a clot, but also we incidentally discovered that she had a DVT in her left carotid. She was admitted. We gave her anticoagulation and consulted Vascular Surgery. They did not have to do any more procedures. We did dialyze her. She was doing well. We discharged on 03/27/2020 on Eliquis. DISPOSITION: Home. ACTIVITY: As tolerated. DIET: Low sodium. MEDICATIONS: Please see the MRAD. TOTAL TIME: 34 minutes. GRACIELA GAN DO DR: ALEXUS/quiana JOB#: [id number] / [id number]
[2020-04-03] MEDS ORDERED: APIXABAN 5 MG TABLET. PO SCH (09:00)
[2020-04-06] MEDS ORDERED: OMEP1CAP24 PO (11:47)
== END 2020-03-27 18:32 | disposition home health service (06) | DRG 314 ==
LOC: ER 20:22 → 2 NORTH 21:57 → OBSVTOIN 03-23 10:02
PROVIDERS: ADMIT Family Medicine; ATTEND Family Medicine
PROC: 5A1D70Z Performance of Urinary Filtration, Intermittent, Less than 6 Hours Per Day (ICD-10-PCS; 2020-03-23)
PROC: 05HM33Z Insertion of Infusion Device into Right Internal Jugular Vein, Percutaneous Approach (ICD-10-PCS; principal; 2020-03-24)
PROC: B5131ZA Fluoroscopy of Right Jugular Veins using Low Osmolar Contrast, Guidance (ICD-10-PCS; 2020-03-24)
PROC: 5A1D70Z Performance of Urinary Filtration, Intermittent, Less than 6 Hours Per Day (ICD-10-PCS; 2020-03-24)
PROC: 5A1D70Z Performance of Urinary Filtration, Intermittent, Less than 6 Hours Per Day (ICD-10-PCS; 2020-03-27)
DX: T82.818A Embolism due to vascular prosthetic devices, implants and grafts, initial encounter (principal); N18.6 End stage renal disease; I82.C12 Acute embolism and thrombosis of left internal jugular vein; I12.0 Hypertensive chronic kidney disease with stage 5 chronic kidney disease or end stage renal disease; E87.5 Hyperkalemia; I65.22 Occlusion and stenosis of left carotid artery; D64.9 Anemia, unspecified; E11.22 Type 2 diabetes mellitus with diabetic chronic kidney disease; Y83.2 Surgical operation with anastomosis, bypass or graft as the cause of abnormal reaction of the patient, or of later complication, without mention of misadventure at the time of the procedure; Z82.49 Family history of ischemic heart disease and other diseases of the circulatory system; Z90.11 Acquired absence of right breast and nipple; Z90.12 Acquired absence of left breast and nipple; Z90.710 Acquired absence of both cervix and uterus; Z99.2 Dependence on renal dialysis; Z88.2 Allergy status to sulfonamides
CPT/HCPCS: 36415; 36556; 77001; 80048; 80053; 83735; 85007; 85025; 85027; 85520; 93971; 96374; C1751; C1892; G0378; G0379; J0882; J1644; J1650; 97530-GP; 99285-25

== ENCOUNTER 2020-03-29 12:30 | Inpatient (IN) | payer MEDICARE ==
[~2020-03-29] VITALS: Ht 162.6 cm; Wt 80.2 kg
[~2020-03-29 12:30] MED LIST changes: +APIX5TAB PO; +FOLI0.8T21 PO
[2020-03-29] MEDS ORDERED: NITROGLYCERIN SUBLINGUAL 0.4 MG BOTTLE OF 25. SL PRN ×2 (13:00→15:30)
[2020-03-29] MEDS ORDERED: ASPIRIN 325 MG TABLET PO ONE (13:00)
[2020-03-29] MEDS ORDERED: MORPHINE SULFATE 4 MG/ML VIAL. IV/SQ PRN (13:00)
[2020-03-29 13:23] LABS: CALCIUM 7.2 mg/dL (8.5-10.1); CREATININE 6.9 mg/dL (0.6-1.0); GFR 6.9
[2020-03-29 13:29] LABS: ALBUMIN 2.8 g/dL (3.4-5.0); ALBUMIN/GLOBULIN RATIO 0.9 (1.0-1.7); MAGNESIUM 2.4 mg/dL (1.8-2.4); TOTAL BILIRUBIN 0.4 mg/dL (0.2-1.0); TOTAL PROTEIN 5.9 g/dL (6.4-8.2)
[2020-03-29 13:33] LABS: PROTHROMBIN TIME PATIENT 19.7 SEC (11.7-14.0)
[2020-03-29 13:51] LABS: BASO # 0.1 x10^3/uL (0.0-0.2); BASO % 1 % (0-3); EOS # 0.1 x10^3/uL (0.0-0.7); EOS % 1 % (0-3); HEMATOCRIT 22.5 % (36.0-47.0); HEMOGLOBIN 7.4 g/dL (12.0-15.5); LYMPH # 0.9 x10^3/uL (1.0-4.8); LYMPH % 14 % (24-48); MEAN CORPUSCULAR HEMOGLOBIN 28 pg (25-35); MEAN CORPUSCULAR HGB CONC 33 g/dL (31-37); MEAN CORPUSCULAR VOLUME 86 fL (79-100); MONO # 0.6 x10^3/uL (0.0-1.1); MONO % 10 % (0-9); NEUT # 4.8 x10^3/uL (1.8-7.7); NEUT % 75 % (31-73); PLATELET COUNT 202 x10^3/uL (140-400); RED BLOOD COUNT 2.61 x10^6/uL (3.50-5.40); RED CELL DISTRIBUTION WIDTH 19.4 % (11.5-14.5); WHITE BLOOD COUNT 6.4 x10^3/uL (4.0-11.0)
--- NOTE | 2020-03-29 13:53 | RAD ---
EXAM: PORTABLE CHEST 1V INDICATION: Reason: chest pain / Spl. Instructions: / History: . TECHNIQUE: Single view COMPARISON: Chest x-ray 03/03/2020 FINDINGS: Left jugular approach central venous catheter has since been removed. New surgical clips in the left axilla. Similar vascular stents in the left elbow soft tissues. The heart size is moderately enlarged, similar to prior.. The great vessels appear unremarkable. There is no hilar or mediastinal mass. The lungs are clear. There is no pleural effusion or pneumothorax. There are no significant osseous abnormalities. IMPRESSION: Stable cardiomegaly with no superimposed active cardiopulmonary disease. Electronically signed by: Yandel Sneed MD (03/29/2020 1:50 PM) [facility] [place]
--- NOTE | 2020-03-29 14:33 | PHYS DOC ---
Past Medical History Past Medical History: Diabetes-Type II, Hypertension, Renal Disease Additional Past Medical Histor: dialysis Past Surgical History: Hysterectomy, Other Additional Past Surgical Histo: RIGHT MASTECTOMY, LEFT DIALYSIS FISTULA Smoking Status: Former Smoker Alcohol Use: None Drug Use: None General Adult EDM: Chief Complaint: CHEST PAIN HPI: HPI: Patient is a 84 year old female with history of diabetes type 2, hypertension, end-stage kidney disease on dialysis Friday last dialyzed on Friday this week who presents to the ED today complaining of chest pain. Patient unable to rate or describe the pain. She states she was going to dialysis when the pain began. Denies anything exacerbating or relieving her symptoms. She states she just left the hospital a few days ago after being diagnosed with left internal jagular vein DVT. Patient is currently a poor historian. Review of Systems: Review of Systems: Constitutional: Denies fever or chills. [] Eyes: Denies change in visual acuity. [] HENT: Denies nasal congestion or sore throat. [] Respiratory: Denies cough or shortness of breath. [] Cardiovascular: Reports chest pain GI: Denies abdominal pain, nausea, vomiting, bloody stools or diarrhea. [] : Denies dysuria. [] Musculoskeletal: Denies back pain or joint pain. [] Integument: Denies rash. [] Neurologic: Denies headache, focal weakness or sensory changes. [] Endocrine: Denies polyuria or polydipsia. [] Lymphatic: Denies swollen glands. [] Psychiatric: Denies depression or anxiety. [] Heart Score: HEART Score for Chest Pain: HEART Score for Chest Pain Response (Comments) Value History Slighlty/Non-Suspicious 0 ECG Normal 0 Age > 65 2 Risk Factors >3 Risk Factors or Hx CAD 2 Troponin >3 x Normal Limit 2 Total 6 Risk Factors: Risk Factors: DM, Current or recent (<one month) smoker, HTN, HLP, family history of CAD, obesity. Risk Scores: Score 0 - 3: 2.5% MACE over next 6 weeks - Discharge Home Score 4 - 6: 20.3% MACE over next 6 weeks - Admit for Clinical Observation Score 7 - 10: 72.7% MACE over next 6 weeks - Early Invasive Strategies Current Medications: Current Medications Medications (Trade) Dose Ordered Sig/Diana Start Time Stop Time Status Last Admin Dose Admin Aspirin (Cherise Aspirin) 325 mg 1X ONCE 03/29/20 13:00 03/29/20 13:01 DC Morphine Sulfate (Morphine Sulfate) 4 mg PRN Q15MIN PRN 03/29/20 13:00 03/30/20 12:59 Nitroglycerin (Nitrostat) 0.4 mg PRN Q5MIN PRN 03/29/20 13:00 03/30/20 12:59 Allergies: Allergies: Allergies Coded Allergies Type Severity Reaction Last Updated Verified Sulfa (Sulfonamide Antibiotics) Allergy Severe "Ashkan Ubaldo's disease" 08/13/15 Yes Physical Exam: PE: Constitutional: Well developed, well nourished, no acute distress, non-toxic appearance. [] HENT: Normocephalic, atraumatic, bilateral external ears normal, oropharynx moist, no oral exudates, nose normal. [] Eyes: PERRLA, EOMI, conjunctiva normal, no discharge. [] Neck: Normal range of motion, no tenderness, supple, no stridor. [] Cardiovascular:Heart rate regular rhythm, no murmur [] Lungs & Thorax: Bilateral breath sounds clear to auscultation [] Abdomen: Bowel sounds normal, soft, no tenderness, no masses, no pulsatile masses. [] Skin: Warm, dry, LUE with a new dialysis fistula no signs of infection Back: No tenderness, no CVA tenderness. [] Extremities: No tenderness, no cyanosis, no clubbing, ROM intact, no edema. [] Neurologic: Alert and oriented X 3, normal motor function, normal sensory fun ction, no focal deficits noted. [] Psychologic: Affect normal, judgement normal, mood normal. [] Current Patient Data: Labs: Laboratory Tests Test 03/29/20 12:52 03/29/20 13:39 Prothrombin Time 19.7 SEC (11.7-14.0) H Prothrombin Time INR 1.7 (0.8-1.1) H Sodium Level 130 mmol/L (136-145) L Potassium Level 5.0 mmol/L (3.5-5.1) Chloride Level 94 mmol/L (98-107) L Carbon Dioxide Level 25 mmol/L (21-32) Anion Gap 11 (6-14) Blood Urea Nitrogen 74 mg/dL (7-20) H Creatinine 6.9 mg/dL (0.6-1.0) H Estimated GFR (Cockcroft-Gault) 6.9 BUN/Creatinine Ratio 11 (6-20) Glucose Level 218 mg/dL (70-99) H Calcium Level 7.2 mg/dL (8.5-10.1) L Magnesium Level 2.4 mg/dL (1.8-2.4) Total Bilirubin 0.4 mg/dL (0.2-1.0) Aspartate Amino Transferase (AST) 33 U/L (15-37) Alanine Aminotransferase (ALT) 33 U/L (14-59) Alkaline Phosphatase 59 U/L (46-116) Troponin I Quantitative 0.064 ng/mL (0.000-0.055) [id number]-Type Natriuretic Peptide 10002 pg/mL (0-449) H Total Protein 5.9 g/dL (6.4-8.2) L Albumin 2.8 g/dL (3.4-5.0) L Albumin/Globulin Ratio 0.9 (1.0-1.7) L Thyroid Stimulating Hormone (TSH) 2.783 uIU/mL (0.358-3.74) White Blood Count 6.4 x10^3/uL (4.0-11.0) Red Blood Count 2.61 x10^6/uL (3.50-5.40) L Hemoglobin 7.4 g/dL (12.0-15.5) L Hematocrit 22.5 % (36.0-47.0) L Mean Corpuscular Volume 86 fL (79-100) Mean Corpuscular Hemoglobin 28 pg (25-35) Mean Corpuscular Hemoglobin Concent 33 g/dL (31-37) Red Cell Distribution Width 19.4 % (11.5-14.5) H Platelet Count 202 x10^3/uL (140-400) Neutrophils (%) (Auto) 75 % (31-73) H Lymphocytes (%) (Auto) 14 % (24-48) L Monocytes (%) (Auto) 10 % (0-9) H Eosinophils (%) (Auto) 1 % (0-3) Basophils (%) (Auto) 1 % (0-3) Neutrophils # (Auto) 4.8 x10^3/uL (1.8-7.7) Lymphocytes # (Auto) 0.9 x10^3/uL (1.0-4.8) L Monocytes # (Auto) 0.6 x10^3/uL (0.0-1.1) Eosinophils # (Auto) 0.1 x10^3/uL (0.0-0.7) Basophils # (Auto) 0.1 x10^3/uL (0.0-0.2) Platelet Estimate Pending Laboratory Tests 03/29/20 13:39 Laboratory Tests 03/29/20 12:52 Vital Signs: Vital Signs Date Time Temp Pulse Resp B/P (MAP) Pulse Ox O2 Delivery O2 Flow Rate FiO2 03/29/20 12:36 97.7 80 16 125/60 (81) 99 Room Air 97.7 EKG: EKG: [] Radiology/Procedures: Radiology/Procedures: []PROCEDURE: PORTABLE CHEST 1V EXAM: PORTABLE CHEST 1V INDICATION: Reason: chest pain / Spl. Instructions: / History: . TECHNIQUE: Single view COMPARISON: Chest x-ray 03/03/2020 FINDINGS: Left jugular approach central venous catheter has since been removed. New surgical clips in the left axilla. Similar vascular stents in the left elbow soft tissues. The heart size is moderately enlarged, similar to prior.. The great vessels appear unremarkable. There is no hilar or mediastinal mass. The lungs are clear. There is no pleural effusion or pneumothorax. There are no significant osseous abnormalities. IMPRESSION: Stable cardiomegaly with no superimposed active cardiopulmonary disease. Electronically signed by: Andrew Sneed MD (03/29/2020 1:50 PM) [facility] [place] and SIGNED BY: ANDREW SNEED MD DATE: 03/29/20 1350 Course & Med Decision Making: Course & Med Decision Making Pertinent Labs and Imaging studies reviewed. (See chart for details) This is a 84-year-old female patient presenting to the ED today with chest pain that began this morning. EKG is negative, troponin 0 0.064, patient has history of elevated troponin this is actually low. Cardiology was informed. CMP with potassium of 5.0. Sodium 130. Chest x-ray with no acute findings. Spoke with Dr. Desai who accepted patient for admission Brittany Disclaimer: Brittany Disclaimer: This electronic medical record was generated, in whole or in part, using a voice recognition dictation system. Departure Departure Impression: Primary Impression: Chest pain Qualified Codes: R07.9 - Chest pain, unspecified Disposition: ADMITTED INPATIENT Condition: STABLE Referrals: DELTA RIZVI MD (PCP) Justicifation of Admission Dx: Justifications for Admission: Justification of Admission Dx: Yes CHF: Hemodynamic Instability PIERCE CARTER DEVULCANIZER CHARGER Mar 29, 2020 14:33
[2020-03-29 14:39] LABS: ANISOCYTOSIS SLIGHT; BURR CELLS MOD; HYPOCHROMIA SLIGHT; MICROCYTOSIS SLIGHT; PLT ESTIMATE ADEQUATE (ADEQUATE); POIKILOCYTOSIS MOD
[2020-03-29 14:40] LABS: POLYCHROMASIA OCCASIONAL; SCHISTOCYTES OCC
[2020-03-29 14:41] LABS: TARGET CELLS OCC
[2020-03-29] MEDS ORDERED: MORPHINE SULFATE 2 MG/ML VIAL. IV PRN (15:30)
[2020-03-29] MEDS ORDERED: ONDANSETRON PF 4 MG/2 ML VIAL. IV PRN (15:30)
--- NOTE | 2020-03-29 15:31 | EKG ---
[facility] [address] [place] [address] Test Date: 2020-03-29 Test Time: 12:41:59 Pat Name: DENISE PAN Department: Room: Gender: F [employer] Analyst: : 1935 Requested By: PIERCE CARTER Order Number: [id number] Reading MD: Measurements Intervals [place] Rate: 73 P: 48 WA: 198 QRS: -42 QRSD: 116 T: 49 QT: 438 QTc: 487 Interpretive Statements SINUS RHYTHM ABNORMAL LEFT AXIS DEVIATION LEFT ANTERIOR FASCICULAR BLOCK QRS(T) CONTOUR ABNORMALITY CONSISTENT WITH ANTEROSEPTAL INFARCT PROBABLY OLD T ABNORMALITY IN ANTEROLATERAL LEADS ABNORMAL ECG RI6.02 No previous ECG available for comparison
--- NOTE | 2020-03-29 16:06 | PDOC2 ---
KT REYES KENNEL HAND 03/29/20 1606: CARDIAC CONSULT DATE OF CONSULT Date of Consult DATE: 03/29/20 TIME: 15:55 REASON FOR CONSULT Reason for Consult: Chest pain REFERRING PHYSICIAN Referring Physician: Dr. Smith SOURCE Source: Chart review, Patient HISTORY OF PRESENT ILLNESS HISTORY OF PRESENT ILLNESS This is an 84 yo female who presented secondary to chest pain. Daughter reports complaint of chest pain this morning. Patients reported "food went down the wrong pipe". Patient was at dialysis this afternoon and again reported chest pains. Dialysis was discontinued and patient was transferred to the ED for further evaluation and treatment. Denies any associated shortness of breath, dizziness, diaphoresis, or nausea/vomiting. Reports pain is across chest. Chest is tender upon palpitation. Patient presented in February for similar pain. Underwent cardiac cath at that time, which did not reveal any significant obstructive disease. PAST MEDICAL HISTORY Past Medical History Cardiovascular: HTN, Hyperlipidemia, CHF Heme/Onc: Anemia NOS Renal/: ESRD on HD Endocrine; Diabetes Anxiety, depression PAST SURGICAL HISTORY Past Surgical History: Other (right mastectomy ) FAMILY HISTORY Family History: Hypertension SOCIAL HISTORY Social History ALCOHOL: none Drugs: None Lives: with Family ALLERGIES ALLERGIES: Coded Allergies: Sulfa (Sulfonamide Antibiotics) (Verified Allergy, Severe, "Ashkan Ubaldo's disease", 08/13/15) ROS Review of System 14 point ROS conducted with pertinent positives noted in HPI PHYSICAL EXAM General: Alert, Cooperative, No acute distress, Other (oriented to person and place) HEENT: Atraumatic, Mucous membr. moist/pink Lungs: Other (diminished bases. Central chest tenderness upon palpitation.) Heart: Regular rate Abdomen: Soft, No tenderness Extremities: No edema, Normal pulses Skin: No significant lesion Neuro: Normal speech, Sensation intact Psych/Mental Status: Mood NL MUSCULOSKELETAL: Osteoarthritic changes both hands VITALS/I&O VITALS/I&O: Vital Signs Date Time Temp Pulse Resp B/P (MAP) Pulse Ox O2 Delivery O2 Flow Rate FiO2 03/29/20 15:32 92 99 Room Air 03/29/20 12:36 97.7 16 97.7 LABS Lab: Laboratory Tests Test 03/29/20 12:52 03/29/20 13:39 Prothrombin Time 19.7 SEC (11.7-14.0) H Prothrombin Time INR 1.7 (0.8-1.1) H Sodium Level 130 mmol/L (136-145) L Potassium Level 5.0 mmol/L (3.5-5.1) Chloride Level 94 mmol/L (98-107) L Carbon Dioxide Level 25 mmol/L (21-32) Anion Gap 11 (6-14) Blood Urea Nitrogen 74 mg/dL (7-20) H Creatinine 6.9 mg/dL (0.6-1.0) H Estimated GFR (Cockcroft-Gault) 6.9 BUN/Creatinine Ratio 11 (6-20) Glucose Level 218 mg/dL (70-99) H Calcium Level 7.2 mg/dL (8.5-10.1) L Magnesium Level 2.4 mg/dL (1.8-2.4) Total Bilirubin 0.4 mg/dL (0.2-1.0) Aspartate Amino Transferase (AST) 33 U/L (15-37) Alanine Aminotransferase (ALT) 33 U/L (14-59) Alkaline Phosphatase 59 U/L (46-116) Troponin I Quantitative 0.064 ng/mL (0.000-0.055) [id number]-Type Natriuretic Peptide 59806 pg/mL (0-449) H Total Protein 5.9 g/dL (6.4-8.2) L Albumin 2.8 g/dL (3.4-5.0) L Albumin/Globulin Ratio 0.9 (1.0-1.7) L Thyroid Stimulating Hormone (TSH) 2.783 uIU/mL (0.358-3.74) White Blood Count 6.4 x10^3/uL (4.0-11.0) Red Blood Count 2.61 x10^6/uL (3.50-5.40) L Hemoglobin 7.4 g/dL (12.0-15.5) L Hematocrit 22.5 % (36.0-47.0) L Mean Corpuscular Volume 86 fL (79-100) Mean Corpuscular Hemoglobin 28 pg (25-35) Mean Corpuscular Hemoglobin Concent 33 g/dL (31-37) Red Cell Distribution Width 19.4 % (11.5-14.5) H Platelet Count 202 x10^3/uL (140-400) Neutrophils (%) (Auto) 75 % (31-73) H Lymphocytes (%) (Auto) 14 % (24-48) L Monocytes (%) (Auto) 10 % (0-9) H Eosinophils (%) (Auto) 1 % (0-3) Basophils (%) (Auto) 1 % (0-3) Neutrophils # (Auto) 4.8 x10^3/uL (1.8-7.7) Lymphocytes # (Auto) 0.9 x10^3/uL (1.0-4.8) L Monocytes # (Auto) 0.6 x10^3/uL (0.0-1.1) Eosinophils # (Auto) 0.1 x10^3/uL (0.0-0.7) Basophils # (Auto) 0.1 x10^3/uL (0.0-0.2) Platelet Estimate Adequate (ADEQUATE) Polychromasia Occasional Hypochromasia Slight Poikilocytosis Mod Anisocytosis Slight Microcytosis Slight Target Cells Occ Stevie Cells Mod Schistocytes Occ Laboratory Tests 03/29/20 13:39 Laboratory Tests 03/29/20 12:52 HEART CATH HEART CATH FINDINGS 1. Hemodynamics: Left ventricular end-diastolic pressure of 21 mmHg. No pullback gradient across the aortic valve. 2. Left ventriculography: Hyperdynamic left ventricle systolic function with ejection fraction estimated at 80%. No significant mitral regurgitation seen. 3. Coronary angiography: a. The left main coronary artery arose from the left sinus of Valsalva, gave rise to the left anterior descending and left circumflex arteries and did not show any significant stenosis. b. The left anterior descending artery did not show any significant stenosis. c. The left circumflex artery did not show any significant stenosis. d. The right coronary artery was a dominant vessel arising from the right sinus of Valsalva that did not show any significant stenosis. Conclusion 1. No significant coronary disease 2. Hyperdynamic left ventricle systolic function with ejection fraction estimated at 80%. Recommendations Patient's non-STEMI is most probably type II/demand ischemia. Continue medical management. DATE: 03/06/20 1120 ASSESSMENT/PLAN ASSESSMENT/PLAN 1. Chest pain, atypical; Recent LHC revealed no significant CAD. Most probably MSK in origin 2. Acute on chronic diastolic CHF: cath showed EF hyperdynamic at 80%. appears compensated 3. Hypertension: Controlled 4. DM2: Per IM 5. ESRD on HD 6. Mild troponin elevated; 0.064. Most probably type II, demand ischemia Type 2. Recommendations Trend troponin Echo to assess LV systolic function Fluid offloading via HD Continue BP regimen. GAYATHRI BALDWIN MD 03/29/20 2015: CARDIAC CONSULT ASSESSMENT/PLAN ASSESSMENT/PLAN Patient seen and examined. Agree with TYPE CUTTER's assessment and plan. CP with atypical features and most probably musculoskeletal Slight trop elevation prob demand ischemia Ac on chr diast HF better compensated Continue fluid removal with HD per nephrology team Thank you for your consultation KT REYES APRN Mar 29, 2020 16:06 GAYATHRI BALDWIN MD Mar 29, 2020 20:15
[2020-03-29 16:20] VITALS: BP 137/43
[2020-03-29 19:48] VITALS: BP 119/36
--- NOTE | 2020-03-29 20:19 | NUR ---
ASSESSMENT COMPLETED, NO IV SITE PATIETN HARD STICK. PER REPORT ANESTHESIA ATTEMTED WITHOUT SUCCESS. ATTEMPTED TO ASSESS PATIENT'S RIGHT ARM FOR ATTEMPT TO PLACE SALINE LOCK. PATIETN REFUSED. PATIENT STATES "MY ARM HURTS, I DON'T WANT YOU TO DO IT."
--- NOTE | 2020-03-29 20:30 | PDOC1 ---
History and Physical Date of Admission Date of Admission DATE: 03/29/20 TIME: 19:58 Identification/Chief Complaint Chief Complaint Chest pain Source Source: Patient History of Present Illness History of Present Illness Patient is a 84-year-old female with past medical history of end-stage renal disease on hemodialysis who presents to the ED with complaints of substernal chest pain. Patient reports aching chest pain, 3 out of 10 at worst, that resolved spontaneously after only a few minutes. She denies any associated symptoms. She denies any aggravating or alleviating symptoms. Her symptoms began while at hemodialysis, and patient left for the ED prior to receiving hemodialysis today. She currently denies any chest pain. Past Medical History Cardiovascular: HTN Heme/Onc: Anemia NOS Renal/: Chronic renal insuff Past Surgical History Past Surgical History: Other (right mastectomy ) Family History Family History: Hypertension Social History Smoke: Quit ALCOHOL: none Drugs: None Current Problem List Problem List Problems Medical Problems: (1) Chest pain Status: Acute Current Medications Current Medications Current Medications Aspirin (Cherise Aspirin) 325 mg 1X ONCE PO ; Start 03/29/20 at 13:00; Stop 03/29/20 at 13:01; Status DC Nitroglycerin (Nitrostat) 0.4 mg PRN Q5MIN PRN SL CP RATING > 1/10; Start 03/29/20 at 13:00; Stop 03/30/20 at 12:59; Status Cancel Morphine Sulfate (Morphine Sulfate) 4 mg PRN Q15MIN PRN IV/SQ PAIN GREATER THAN 3/10; Start 03/29/20 at 13:00; Stop 03/29/20 at 17:24; Status DC Ondansetron HCl (Zofran) 4 mg PRN Q8HRS PRN IV NAUSEA/VOMITING; Start 03/29/20 at 15:30; Stop 03/30/20 at 15:29 Morphine Sulfate (Morphine Sulfate) 2 mg PRN Q2HR PRN IV PAIN; Start 03/29/20 at 15:30; Stop 03/30/20 at 15:29 Nitroglycerin (Nitrostat) 0.4 mg PRN Q5MIN PRN SL CHEST PAIN; Start 03/29/20 at 15:30; Stop 03/30/20 at 15:29 Apixaban (Eliquis) 10 mg BID PO ; Start 03/29/20 at 21:00; Stop 04/02/20 at 21:01 Donepezil HCl (Aricept) 5 mg QHS PO ; Start 03/29/20 at 21:00 Ergocalciferol (Vitamin D2) 50,000 unit WEEKLY PO ; Start 04/05/20 at 09:00 Vitamin B Complex/ Vitamin C (Sarahy-Angelia) 1 tab DAILY PO ; Start 03/30/20 at 09:00 Hydralazine HCl (Apresoline) 25 mg BID PO ; Start 03/29/20 at 21:00 Losartan Potassium (Cozaar) 25 mg BID PO ; Start 03/29/20 at 21:00 Ziprasidone (Geodon) 20 mg HS PO ; Start 03/29/20 at 21:00 Apixaban (Eliquis) 5 mg BID PO ; Start 04/03/20 at 09:00 Active Scripts Active Reported Eliquis (Apixaban) 5 Mg Tablet 10 Mg PO DAILY 7 Days Sarahy-Angelia Tablet (Folic Acid/Vitamin B Comp W-C) 0.8 Mg Tablet 1 Tab PO DAILY 30 Days Vitamin D2 (Ergocalciferol (Vitamin D2)) 1,250 Mcg Capsule 1,250 Mcg PO WEEKLY Donepezil Hcl 5 Mg Tablet 5 Mg PO QHS Ziprasidone Hcl 20 Mg Capsule 20 Mg PO HS Hydralazine Hcl 25 Mg Tablet 1 Tab PO BID Allergies Allergies: Coded Allergies: Sulfa (Sulfonamide Antibiotics) (Verified Allergy, Severe, "Ashkan Ubaldo's disease", 08/13/15) ROS General: No: Chills, Night Sweats, Fatigue, Malaise, Appetite, Other PSYCHOLOGICAL ROS: No: Anxiety, Behavioral Disorder, Concentration difficultie, Decreased libido, Depression, Disorientation, Hallucinations, Hostility, Irritablity, Memory difficulties, Mood Swings, Obsessive thoughts, Physical abuse, Sexual abuse, Sleep disturbances, Suicidal ideation, Other Eyes: No Blurry vision, No Decreased vision, No Double vision, No Dry eyes, No Excessive tearing, No Eye Pain, No Itchy Eyes, No Loss of vision, No Photophobia, No Scotomata, No Uses contacts, No Uses glasses, No Other HEENT: No: Heacaches, Visual Changes, Hearing change, Nasal congestion, Nasal discharge, Oral lesions, Sinus pain, Sore Throat, Epistaxis, Sneezing, Snoring, Tinnitus, Vertigo, Vocal changes, Other Hematological and Lymphatic: No: Bleeding Problems, Blood Clots, Blood Transfusions, Brusing, Night Sweats, Pallor, Swollen Lymph Nodes, Other Respiratory: No: Cough, Hemoptysis, Orthopnea, Pleuritic Pain, Shortness of breath, SOB with excertion, Sputum Changes, Stridor, Tachypnea, Wheezing, Other Cardiovascular: yes Chest Pain Gastrointestinal: No Nausea, No Vomiting, No Abdominal Pain, No Diarrhea, No Constipation, No Melena, No Hematochezia, No Other Musculoskeletal: No Gait Disturbance, No Joint Pain, No Joint Stiffness, No Joint Swelling, No Muscle Pain, No Muscular Weakness, No Pain In:, No Swelling In:, No Other Neurological: No Behavorial Changes, No Bowel/Bladder ControlChng, No Confu david, No Dizziness, No Gait Disturbance, No Headaches, No Impaired Coord/balance, No Memory Loss, No Numbness/Tingling, No Seizures, No Speech Problems, No Tremors, No Visual Changes, No Weakness, No Other Skin: No Dry Skin, No Eczema, No Hair Changes, No Lumps, No Mole Changes, No Mottling, No Nail Changes, No Pruritus, No Rash, No Skin Lesion Changes, No Oth er, No Acne Physical Exam General: Alert, Oriented X3, Cooperative, No acute distress HEENT: PERRLA Lungs: Clear to auscultation, Normal air movement Heart: S1S2, RRR Cardiovascular: S1, S2 Breasts: Normal, Rt breast nml w/o mass, Lt breast nml w/o mass, Nipples normal Abdomen: Normal bowel sounds, Soft, No tenderness, No hepatosplenomegaly, No masses Extremities: Other ( LUE with a new dialysis fistula no signs of infection) Skin: No rashes, No breakdown, No significant lesion Neuro: Normal gait, Normal speech, Strength at 5/5 X4 ext, Normal tone, Sensation intact, Cranial nerves 3-12 NL, Reflexes 2+ Psych/Mental Status: Mental status NL, Mood NL Vitals Vitals Vital Signs Date Time Temp Pulse Resp B/P (MAP) Pulse Ox O2 Delivery O2 Flow Rate FiO2 03/29/20 16:58 Room Air 03/29/20 16:20 98.0 68 20 137/43 (74) 95 98.0 Labs Labs Laboratory Tests Test 03/29/20 12:52 03/29/20 13:39 03/29/20 15:40 03/29/20 17:29 Prothrombin Time 19.7 SEC (11.7-14.0) Prothromb Time International Ratio 1.7 (0.8-1.1) Sodium Level 130 mmol/L (136-145) Potassium Level 5.0 mmol/L (3.5-5.1) Chloride Level 94 mmol/L (98-107) Carbon Dioxide Level 25 mmol/L (21-32) Anion Gap 11 (6-14) Blood Urea Nitrogen 74 mg/dL (7-20) Creatinine 6.9 mg/dL (0.6-1.0) Estimated GFR (Cockcroft-Gault) 6.9 BUN/Creatinine Ratio 11 (6-20) Glucose Level 218 mg/dL (70-99) Calcium Level 7.2 mg/dL (8.5-10.1) Magnesium Level 2.4 mg/dL (1.8-2.4) Total Bilirubin 0.4 mg/dL (0.2-1.0) Aspartate Amino Transf (AST/SGOT) 33 U/L (15-37) Alanine Aminotransferase (ALT/SGPT) 33 U/L (14-59) Alkaline Phosphatase 59 U/L (46-116) Troponin I Quantitative 0.064 ng/mL (0.000-0.055) 0.066 ng/mL (0.000-0.055) AX-Fix-I-Type Natriuretic Peptide 29612 pg/mL (0-449) Total Protein 5.9 g/dL (6.4-8.2) Albumin 2.8 g/dL (3.4-5.0) Albumin/Globulin Ratio 0.9 (1.0-1.7) Thyroid Stimulating Hormone (TSH) 2.783 uIU/mL (0.358-3.74) White Blood Count 6.4 x10^3/uL (4.0-11.0) Red Blood Count 2.61 x10^6/uL (3.50-5.40) Hemoglobin 7.4 g/dL (12.0-15.5) Hematocrit 22.5 % (36.0-47.0) Mean Corpuscular Volume 86 fL (79-100) Mean Corpuscular Hemoglobin 28 pg (25-35) Mean Corpuscular Hemoglobin Concent 33 g/dL (31-37) Red Cell Distribution Width 19.4 % (11.5-14.5) Platelet Count 202 x10^3/uL (140-400) Neutrophils (%) (Auto) 75 % (31-73) Lymphocytes (%) (Auto) 14 % (24-48) Monocytes (%) (Auto) 10 % (0-9) Eosinophils (%) (Auto) 1 % (0-3) Basophils (%) (Auto) 1 % (0-3) Neutrophils # (Auto) 4.8 x10^3/uL (1.8-7.7) Lymphocytes # (Auto) 0.9 x10^3/uL (1.0-4.8) Monocytes # (Auto) 0.6 x10^3/uL (0.0-1.1) Eosinophils # (Auto) 0.1 x10^3/uL (0.0-0.7) Basophils # (Auto) 0.1 x10^3/uL (0.0-0.2) Platelet Estimate Adequate (ADEQUATE) Polychromasia Occasional Hypochromasia Slight Poikilocytosis Mod Anisocytosis Slight Microcytosis Slight Target Cells Occ Charlotte Cells Mod Schistocytes Occ Glucose (Fingerstick) 91 mg/dL (70-99) Laboratory Tests Test 03/29/20 12:52 03/29/20 13:39 03/29/20 15:40 03/29/20 17:29 Prothrombin Time 19.7 SEC (11.7-14.0) Prothromb Time International Ratio 1.7 (0.8-1.1) Sodium Level 130 mmol/L (136-145) Potassium Level 5.0 mmol/L (3.5-5.1) Chloride Level 94 mmol/L (98-107) Carbon Dioxide Level 25 mmol/L (21-32) Anion Gap 11 (6-14) Blood Urea Nitrogen 74 mg/dL (7-20) Creatinine 6.9 mg/dL (0.6-1.0) Estimated GFR (Cockcroft-Gault) 6.9 BUN/Creatinine Ratio 11 (6-20) Glucose Level 218 mg/dL (70-99) Calcium Level 7.2 mg/dL (8.5-10.1) Magnesium Level 2.4 mg/dL (1.8-2.4) Total Bilirubin 0.4 mg/dL (0.2-1.0) Aspartate Amino Transf (AST/SGOT) 33 U/L (15-37) Alanine Aminotransferase (ALT/SGPT) 33 U/L (14-59) Alkaline Phosphatase 59 U/L (46-116) Troponin I Quantitative 0.064 ng/mL (0.000-0.055) 0.066 ng/mL (0.000-0.055) KI-Kic-Q-Type Natriuretic Peptide 45265 pg/mL (0-449) Total Protein 5.9 g/dL (6.4-8.2) Albumin 2.8 g/dL (3.4-5.0) Albumin/Globulin Ratio 0.9 (1.0-1.7) Thyroid Stimulating Hormone (TSH) 2.783 uIU/mL (0.358-3.74) White Blood Count 6.4 x10^3/uL (4.0-11.0) Red Blood Count 2.61 x10^6/uL (3.50-5.40) Hemoglobin 7.4 g/dL (12.0-15.5) Hematocrit 22.5 % (36.0-47.0) Mean Corpuscular Volume 86 fL (79-100) Mean Corpuscular Hemoglobin 28 pg (25-35) Mean Corpuscular Hemoglobin Concent 33 g/dL (31-37) Red Cell Distribution Width 19.4 % (11.5-14.5) Platelet Count 202 x10^3/uL (140-400) Neutrophils (%) (Auto) 75 % (31-73) Lymphocytes (%) (Auto) 14 % (24-48) Monocytes (%) (Auto) 10 % (0-9) Eosinophils (%) (Auto) 1 % (0-3) Basophils (%) (Auto) 1 % (0-3) Neutrophils # (Auto) 4.8 x10^3/uL (1.8-7.7) Lymphocytes # (Auto) 0.9 x10^3/uL (1.0-4.8) Monocytes # (Auto) 0.6 x10^3/uL (0.0-1.1) Eosinophils # (Auto) 0.1 x10^3/uL (0.0-0.7) Basophils # (Auto) 0.1 x10^3/uL (0.0-0.2) Platelet Estimate Adequate (ADEQUATE) Polychromasia Occasional Hypochromasia Slight Poikilocytosis Mod Anisocytosis Slight Microcytosis Slight Target Cells Occ Charlotte Cells Mod Schistocytes Occ Glucose (Fingerstick) 91 mg/dL (70-99) VTE Prophylaxis Ordered VTE Prophylaxis Devices: Contraindicated VTE Pharmacological Prophylaxi: Contraindicated Assessment/Plan Assessment/Plan Patient was admitted for angina that resolved spontaneously. She has a history of end-stage renal disease on hemodialysis, which is likely contributing to her elevated troponins and BNP. Her troponins, while elevated, remained stable and patient is breathing comfortably on room air. Upon review of the patient's chart and ultrasound obtained on 03/22/20 shows an occlusive DVT in her left internal jugular, presumably why the patient is currently taking Eliquis. Will resume patient's home medications consult nephrology and cardiology. Justicifation of Admission Dx: Justifications for Admission: Justification of Admission Dx: Yes CHF: Hemodynamic Instability EDMUND KRUGER MD Mar 29, 2020 20:30
[2020-03-29] MEDS: ZIPRASIDONE 20 MG CAPSULE PO SCH (20:53)
[2020-03-29] MEDS: DONEPEZIL HCL 5 MG TABLET. PO SCH (20:53)
[2020-03-29] MEDS: APIXABAN 5 MG TABLET. PO SCH (20:53)
[2020-03-29] MEDS: hydrALAZINE 25 MG TABLET PO SCH (21:00)
[2020-03-29] MEDS: LOSARTAN POTASSIUM 25 MG TABLET. PO SCH (21:00)
--- NOTE | 2020-03-29 22:59 | NUR ---
HYDRALAZINE AND LOSARTAN HELD PER [facility] RECOMMENDATION, 0 B/P 125/36, PULSE 76 AND 0 B/P 147/41, PULSE 83.
[2020-03-29 23:46] VITALS: BP 126/43
[2020-03-30] VITALS (12 sets, daily range): BP systolic 102–149; BP diastolic 32–76
--- NOTE | 2020-03-30 02:33 | NUR ---
PATIENT C/O HEADACHE, B/P 131/30, PULSE 71. NO IV ACCESS FOR MORPHINE FOR PAIN. CALL PLACED TO DR. KRUGER'S SERVICE FOR PAIN MEDICATION.
--- NOTE | 2020-03-30 02:45 | NUR ---
Patient resting eyes closed, no s/s of pain. Will monitor.
[2020-03-30] MEDS: ACETAMINOPHEN 325 MG TABLET. PO PRN (04:28)
--- NOTE | 2020-03-30 04:28 | NUR ---
Patient awake, c/o headache. Tylenol govern PO with sip water.
[2020-03-30 07:31] LABS: BASO # 0.1 x10^3/uL (0.0-0.2); BASO % 1 % (0-3); EOS % 0 % (0-3); LYMPH # 0.8 x10^3/uL (1.0-4.8); LYMPH % 15 % (24-48); MEAN CORPUSCULAR HEMOGLOBIN 29 pg (25-35); MEAN CORPUSCULAR HGB CONC 33 g/dL (31-37); MEAN CORPUSCULAR VOLUME 86 fL (79-100); MONO # 0.6 x10^3/uL (0.0-1.1); MONO % 11 % (0-9); NEUT % 73 % (31-73); PLATELET COUNT 218 x10^3/uL (140-400); RED BLOOD COUNT 1.91 x10^6/uL (3.50-5.40); RED CELL DISTRIBUTION WIDTH 19.4 % (11.5-14.5); WHITE BLOOD COUNT 5.5 x10^3/uL (4.0-11.0)
[2020-03-30 07:49] LABS: HEMATOCRIT 16.4 % (36.0-47.0); HEMOGLOBIN 5.5 g/dL (12.0-15.5)
[2020-03-30 08:33] LABS: ALBUMIN 2.5 g/dL (3.4-5.0); CALCIUM 6.9 mg/dL (8.5-10.1); CREATININE 7.9 mg/dL (0.6-1.0); GFR 5.9; TOTAL BILIRUBIN 0.2 mg/dL (0.2-1.0); TOTAL PROTEIN 5.1 g/dL (6.4-8.2)
[2020-03-30 08:38] LABS: POTASSIUM 6.1 mmol/L (3.5-5.1)
[2020-03-30] MEDS: APIXABAN 5 MG TABLET. PO SCH (09:00)
[2020-03-30] MEDS: hydrALAZINE 25 MG TABLET PO SCH ×2 (09:00→20:57)
[2020-03-30] MEDS: LOSARTAN POTASSIUM 25 MG TABLET. PO SCH ×2 (09:00→20:58)
--- NOTE | 2020-03-30 09:03 | NUR ---
This RN notified Dr. Hernandez in person of Hmg 5.5, Hct 16.4, and BP of 102/32. Orders received to transfuse 2 units PRBCs, hold eliquis, and recheck BP. Recheck BP 108/35, Dr. Hernandez notified by telephone. No new orders. Will monitor pt closely.
[2020-03-30] MEDS: FOLIC/VIT B COMP W-C (RENAL) TABLET. PO SCH (09:18)
[2020-03-30] MEDS ORDERED: DIALYSIS PATIENT. MC PRN ×2 (10:15)
--- NOTE | 2020-03-30 10:21 | PDOC2 ---
CONSULT Date of Consult Date of Consult DATE: 03/30/20 TIME: 10:10 Reason for Consult Reason for Consult: ESRD Identification/Chief Complaint Chief Complaint "I am not feeling good, I dont know anything else" Source Source: Chart review History of Present Illness Reason for Visit: Patient is a 84-year-old AA female , she was rcently dced from [facility] on 03/27 . She is end-stage renal disease on hemodialysis , presents to the ED with complaints of substernal chest pain. Patient reports aching chest pain, 3 out of 10 at worst, that resolved spontaneously after only a few minutes. She d enies any associated symptoms. She denies any aggravating or alleviating symptoms. Her symptoms began while at hemodialysis Currently denies any CP or SOB. Just states she dont know whats going on , she is not feeling good. She states she cant recall if she went for Dialysis yesterday Denies any N/V/D. No Dizziness ,No abdominal pain Past Medical History Cardiovascular: HTN Heme/Onc: Anemia NOS Renal/: Chronic renal insuff Past Surgical History Past Surgical History: Other (right mastectomy ) Family History Family History: Hypertension Social History Quit ALCOHOL: none Drugs: None Lives: with Family Current Problem List Problem List Problems Medical Problems: (1) Chest pain Status: Acute Current Medications Current Medications Current Medications Aspirin (Cherise Aspirin) 325 mg 1X ONCE PO ; Start 03/29/20 at 13:00; Stop 03/29/20 at 13:01; Status DC Nitroglycerin (Nitrostat) 0.4 mg PRN Q5MIN PRN SL CP RATING > 1/10; Start 03/29/20 at 13:00; Stop 03/30/20 at 12:59; Status Cancel Morphine Sulfate (Morphine Sulfate) 4 mg PRN Q15MIN PRN IV/SQ PAIN GREATER THAN 3/10; Start 03/29/20 at 13:00; Stop 03/29/20 at 17:24; Status DC Ondansetron HCl (Zofran) 4 mg PRN Q8HRS PRN IV NAUSEA/VOMITING; Start 03/29/20 at 15:30; Stop 03/30/20 at 15:29 Morphine Sulfate (Morphine Sulfate) 2 mg PRN Q2HR PRN IV PAIN; Start 03/29/20 at 15:30; Stop 03/30/20 at 15:29 Nitroglycerin (Nitrostat) 0.4 mg PRN Q5MIN PRN SL CHEST PAIN; Start 03/29/20 at 15:30; Stop 03/30/20 at 15:29 Apixaban (Eliquis) 10 mg BID PO Last administered on 03/29/20at 20:53; Start 03/29/20 at 21:00; Stop 04/02/20 at 21:01 Donepezil HCl (Aricept) 5 mg QHS PO Last administered on 03/29/20at 20:53; Start 03/29/20 at 21:00 Ergocalciferol (Vitamin D2) 50,000 unit WEEKLY PO ; Start 04/05/20 at 09:00 Vitamin B Complex/ Vitamin C (Sarahy-Angelia) 1 tab DAILY PO Last administered on 03/30/20at 09:18; Start 03/30/20 at 09:00 Hydralazine HCl (Apresoline) 25 mg BID PO ; Start 03/29/20 at 21:00 Losartan Potassium (Cozaar) 25 mg BID PO ; Start 03/29/20 at 21:00 Ziprasidone (Geodon) 20 mg HS PO Last administered on 03/29/20at 20:53; Start 03/29/20 at 21:00 Apixaban (Eliquis) 5 mg BID PO ; Start 04/03/20 at 09:00 Acetaminophen (Tylenol) 650 mg PRN Q6HRS PRN PO MILD PAIN / TEMP > 100.3'F Last administered on 03/30/20at 04:28; Start 03/30/20 at 03:00 Ibuprofen (Motrin) 400 mg PRN Q6HRS PRN PO INFLAMMATION; Start 03/30/20 at 03:00 Active Scripts Active Reported Eliquis (Apixaban) 5 Mg Tablet 10 Mg PO DAILY 7 Days Sarahy-Angelia Tablet (Folic Acid/Vitamin B Comp W-C) 0.8 Mg Tablet 1 Tab PO DAILY 30 Days Vitamin D2 (Ergocalciferol (Vitamin D2)) 1,250 Mcg Capsule 1,250 Mcg PO WEEKLY Donepezil Hcl 5 Mg Tablet 5 Mg PO QHS Ziprasidone Hcl 20 Mg Capsule 20 Mg PO HS Hydralazine Hcl 25 Mg Tablet 1 Tab PO BID Allergies Allergies: Coded Allergies: Sulfa (Sulfonamide Antibiotics) (Verified Allergy, Severe, "Ashkan Ubaldo's disease", 08/13/15) ROS Review of System As per HPI, rest of ROS is negative , Pt is a poor Historian Physical Exam Physical Exam General Appearance: no apparent distress Skin: No rash Respiratory: decreased breath sounds at bases, Non labored Heart: S1S2 Abdomen: soft, bowel sounds present Genitourinary: No houser Extremities: No LE edema Neurology: alert Vital Signs Vital Signs Date Time Temp Pulse Resp B/P (MAP) Pulse Ox O2 Delivery O2 Flow Rate FiO2 03/30/20 08:29 Room Air 03/30/20 08:01 70 108/35 (59) 03/30/20 07:29 98.6 16 95 98.6 Assessment & Plan ESRD - On HD MWF Per nursing Pt went for HD yesterday but due to c/o Chest pain didnt receive complete treatment , Pt Unable to recall Dialysis today for hyperkalemia continue as ordered, Rafael Baxter HyperKaemia- HD today Acute Anemia- Hgb 5.5 - PRBC ordered by primary ,? Etiology Recent admission for Left upper arm swelling- seen by vascular - AVG functioning for HD no evidence the graft is infected. 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 that has been removed no surgery needed per vascular Anticoagulation per primary Hypertension - currently Hypotensive Anemia - ELISEO per protocol DM II DVT Labs Labs Laboratory Tests Test 03/29/20 12:52 03/29/20 13:39 03/29/20 15:40 03/29/20 17:29 Prothrombin Time 19.7 SEC (11.7-14.0) Prothromb Time International Ratio 1.7 (0.8-1.1) Sodium Level 130 mmol/L (136-145) Potassium Level 5.0 mmol/L (3.5-5.1) Chloride Level 94 mmol/L (98-107) Carbon Dioxide Level 25 mmol/L (21-32) Anion Gap 11 (6-14) Blood Urea Nitrogen 74 mg/dL (7-20) Creatinine 6.9 mg/dL (0.6-1.0) Estimated GFR (Cockcroft-Gault) 6.9 BUN/Creatinine Ratio 11 (6-20) Glucose Level 218 mg/dL (70-99) Calcium Level 7.2 mg/dL (8.5-10.1) Magnesium Level 2.4 mg/dL (1.8-2.4) Total Bilirubin 0.4 mg/dL (0.2-1.0) Aspartate Amino Transf (AST/SGOT) 33 U/L (15-37) Alanine Aminotransferase (ALT/SGPT) 33 U/L (14-59) Alkaline Phosphatase 59 U/L (46-116) Troponin I Quantitative 0.064 ng/mL (0.000-0.055) 0.066 ng/mL (0.000-0.055) VZ-Hru-Y-Type Natriuretic Peptide 87890 pg/mL (0-449) Total Protein 5.9 g/dL (6.4-8.2) Albumin 2.8 g/dL (3.4-5.0) Albumin/Globulin Ratio 0.9 (1.0-1.7) Thyroid Stimulating Hormone (TSH) 2.783 uIU/mL (0.358-3.74) White Blood Count 6.4 x10^3/uL (4.0-11.0) Red Blood Count 2.61 x10^6/uL (3.50-5.40) Hemoglobin 7.4 g/dL (12.0-15.5) Hematocrit 22.5 % (36.0-47.0) Mean Corpuscular Volume 86 fL (79-100) Mean Corpuscular Hemoglobin 28 pg (25-35) Mean Corpuscular Hemoglobin Concent 33 g/dL (31-37) Red Cell Distribution Width 19.4 % (11.5-14.5) Platelet Count 202 x10^3/uL (140-400) Neutrophils (%) (Auto) 75 % (31-73) Lymphocytes (%) (Auto) 14 % (24-48) Monocytes (%) (Auto) 10 % (0-9) Eosinophils (%) (Auto) 1 % (0-3) Basophils (%) (Auto) 1 % (0-3) Neutrophils # (Auto) 4.8 x10^3/uL (1.8-7.7) Lymphocytes # (Auto) 0.9 x10^3/uL (1.0-4.8) Monocytes # (Auto) 0.6 x10^3/uL (0.0-1.1) Eosinophils # (Auto) 0.1 x10^3/uL (0.0-0.7) Basophils # (Auto) 0.1 x10^3/uL (0.0-0.2) Platelet Estimate Adequate (ADEQUATE) Polychromasia Occasional Hypochromasia Slight Poikilocytosis Mod Anisocytosis Slight Microcytosis Slight Target Cells Occ [place] Cells Mod Schistocytes Occ Glucose (Fingerstick) 91 mg/dL (70-99) Test 03/29/20 21:10 03/29/20 21:26 03/30/20 06:55 03/30/20 07:00 Troponin I Quantitative 0.064 ng/mL (0.000-0.055) Glucose (Fingerstick) 150 mg/dL (70-99) 107 mg/dL (70-99) White Blood Count 5.5 x10^3/uL (4.0-11.0) Red Blood Count 1.91 x10^6/uL (3.50-5.40) Hemoglobin 5.5 g/dL (12.0-15.5) Hematocrit 16.4 % (36.0-47.0) Mean Corpuscular Volume 86 fL (79-100) Mean Corpuscular Hemoglobin 29 pg (25-35) Mean Corpuscular Hemoglobin Concent 33 g/dL (31-37) Red Cell Distribution Width 19.4 % (11.5-14.5) Platelet Count 218 x10^3/uL (140-400) Neutrophils (%) (Auto) 73 % (31-73) Lymphocytes (%) (Auto) 15 % (24-48) Monocytes (%) (Auto) 11 % (0-9) Eosinophils (%) (Auto) 0 % (0-3) Basophils (%) (Auto) 1 % (0-3) Neutrophils # (Auto) 4.0 x10^3/uL (1.8-7.7) Lymphocytes # (Auto) 0.8 x10^3/uL (1.0-4.8) Monocytes # (Auto) 0.6 x10^3/uL (0.0-1.1) Eosinophils # (Auto) 0.0 x10^3/uL (0.0-0.7) Basophils # (Auto) 0.1 x10^3/uL (0.0-0.2) Sodium Level 132 mmol/L (136-145) Potassium Level 6.1 mmol/L (3.5-5.1) Chloride Level 97 mmol/L (98-107) Carbon Dioxide Level 24 mmol/L (21-32) Anion Gap 11 (6-14) Blood Urea Nitrogen 96 mg/dL (7-20) Creatinine 7.9 mg/dL (0.6-1.0) Estimated GFR (Cockcroft-Gault) 5.9 BUN/Creatinine Ratio 12 (6-20) Glucose Level 107 mg/dL (70-99) Calcium Level 6.9 mg/dL (8.5-10.1) Total Bilirubin 0.2 mg/dL (0.2-1.0) Aspartate Amino Transf (AST/SGOT) 38 U/L (15-37) Alanine Aminotransferase (ALT/SGPT) 46 U/L (14-59) Alkaline Phosphatase 45 U/L (46-116) Total Protein 5.1 g/dL (6.4-8.2) Albumin 2.5 g/dL (3.4-5.0) Albumin/Globulin Ratio 1.0 (1.0-1.7) Laboratory Tests Test 03/29/20 12:52 03/29/20 13:39 03/29/20 15:40 03/29/20 17:29 Prothrombin Time 19.7 SEC (11.7-14.0) Prothromb Time International Ratio 1.7 (0.8-1.1) Sodium Level 130 mmol/L (136-145) Potassium Level 5.0 mmol/L (3.5-5.1) Chloride Level 94 mmol/L (98-107) Carbon Dioxide Level 25 mmol/L (21-32) Anion Gap 11 (6-14) Blood Urea Nitrogen 74 mg/dL (7-20) Creatinine 6.9 mg/dL (0.6-1.0) Estimated GFR (Cockcroft-Gault) 6.9 BUN/Creatinine Ratio 11 (6-20) Glucose Level 218 mg/dL (70-99) Calcium Level 7.2 mg/dL (8.5-10.1) Magnesium Level 2.4 mg/dL (1.8-2.4) Total Bilirubin 0.4 mg/dL (0.2-1.0) Aspartate Amino Transf (AST/SGOT) 33 U/L (15-37) Alanine Aminotransferase (ALT/SGPT) 33 U/L (14-59) Alkaline Phosphatase 59 U/L (46-116) Troponin I Quantitative 0.064 ng/mL (0.000-0.055) 0.066 ng/mL (0.000-0.055) HJ-Trv-E-Type Natriuretic Peptide 30271 pg/mL (0-449) Total Protein 5.9 g/dL (6.4-8.2) Albumin 2.8 g/dL (3.4-5.0) Albumin/Globulin Ratio 0.9 (1.0-1.7) Thyroid Stimulating Hormone (TSH) 2.783 uIU/mL (0.358-3.74) White Blood Count 6.4 x10^3/uL (4.0-11.0) Red Blood Count 2.61 x10^6/uL (3.50-5.40) Hemoglobin 7.4 g/dL (12.0-15.5) Hematocrit 22.5 % (36.0-47.0) Mean Corpuscular Volume 86 fL (79-100) Mean Corpuscular Hemoglobin 28 pg (25-35) Mean Corpuscular Hemoglobin Concent 33 g/dL (31-37) Red Cell Distribution Width 19.4 % (11.5-14.5) Platelet Count 202 x10^3/uL (140-400) Neutrophils (%) (Auto) 75 % (31-73) Lymphocytes (%) (Auto) 14 % (24-48) Monocytes (%) (Auto) 10 % (0-9) Eosinophils (%) (Auto) 1 % (0-3) Basophils (%) (Auto) 1 % (0-3) Neutrophils # (Auto) 4.8 x10^3/uL (1.8-7.7) Lymphocytes # (Auto) 0.9 x10^3/uL (1.0-4.8) Monocytes # (Auto) 0.6 x10^3/uL (0.0-1.1) Eosinophils # (Auto) 0.1 x10^3/uL (0.0-0.7) Basophils # (Auto) 0.1 x10^3/uL (0.0-0.2) Platelet Estimate Adequate (ADEQUATE) Polychromasia Occasional Hypochromasia Slight Poikilocytosis Mod Anisocytosis Slight Microcytosis Slight Target Cells Occ Stevie Cells Mod Schistocytes Occ Glucose (Fingerstick) 91 mg/dL (70-99) Test 03/29/20 21:10 03/29/20 21:26 03/30/20 06:55 03/30/20 07:00 Troponin I Quantitative 0.064 ng/mL (0.000-0.055) Glucose (Fingerstick) 150 mg/dL (70-99) 107 mg/dL (70-99) White Blood Count 5.5 x10^3/uL (4.0-11.0) Red Blood Count 1.91 x10^6/uL (3.50-5.40) Hemoglobin 5.5 g/dL (12.0-15.5) Hematocrit 16.4 % (36.0-47.0) Mean Corpuscular Volume 86 fL (79-100) Mean Corpuscular Hemoglobin 29 pg (25-35) Mean Corpuscular Hemoglobin Concent 33 g/dL (31-37) Red Cell Distribution Width 19.4 % (11.5-14.5) Platelet Count 218 x10^3/uL (140-400) Neutrophils (%) (Auto) 73 % (31-73) Lymphocytes (%) (Auto) 15 % (24-48) Monocytes (%) (Auto) 11 % (0-9) Eosinophils (%) (Auto) 0 % (0-3) Basophils (%) (Auto) 1 % (0-3) Neutrophils # (Auto) 4.0 x10^3/uL (1.8-7.7) Lymphocytes # (Auto) 0.8 x10^3/uL (1.0-4.8) Monocytes # (Auto) 0.6 x10^3/uL (0.0-1.1) Eosinophils # (Auto) 0.0 x10^3/uL (0.0-0.7) Basophils # (Auto) 0.1 x10^3/uL (0.0-0.2) Sodium Level 132 mmol/L (136-145) Potassium Level 6.1 mmol/L (3.5-5.1) Chloride Level 97 mmol/L (98-107) Carbon Dioxide Level 24 mmol/L (21-32) Anion Gap 11 (6-14) Blood Urea Nitrogen 96 mg/dL (7-20) Creatinine 7.9 mg/dL (0.6-1.0) Estimated GFR (Cockcroft-Gault) 5.9 BUN/Creatinine Ratio 12 (6-20) Glucose Level 107 mg/dL (70-99) Calcium Level 6.9 mg/dL (8.5-10.1) Total Bilirubin 0.2 mg/dL (0.2-1.0) Aspartate Amino Transf (AST/SGOT) 38 U/L (15-37) Alanine Aminotransferase (ALT/SGPT) 46 U/L (14-59) Alkaline Phosphatase 45 U/L (46-116) Total Protein 5.1 g/dL (6.4-8.2) Albumin 2.5 g/dL (3.4-5.0) Albumin/Globulin Ratio 1.0 (1.0-1.7) Review All relevant outside records, renal labs, imaging studies, telemetry/EKG's were reviewed. Images Images Left jugular approach central venous catheter has since been removed. New surgical clips in the left axilla. Similar vascular stents in the left elbow soft tissues. The heart size is moderately enlarged, similar to prior.. The great vessels appear unremarkable. There is no hilar or mediastinal mass. The lungs are clear. There is no pleural effusion or pneumothorax. There are no significant osseous abnormalities. IMPRESSION: Stable cardiomegaly with no superimposed active cardiopulmonary disease. SALVADOR KOWALSKI MD Mar 30, 2020 10:21
--- NOTE | 2020-03-30 10:55 | PDOC ---
KT REYES BRITTA 03/30/20 1055: CARDIO Progress Notes Date and Time Date of Service 03/30/20 Time of Evaluation 1050 Subjective Subjective: No Chest Pain, No shortness of breath Vitals Vitals Vital Signs Date Time Temp Pulse Resp B/P (MAP) Pulse Ox O2 Delivery O2 Flow Rate FiO2 03/30/20 08:29 Room Air 03/30/20 08:01 70 108/35 (59) 03/30/20 07:29 98.6 16 95 98.6 Weight Weight [ ] Input and Output Intake and Output Intake and Output 03/30/20 07:00 Intake Total 370 ml Output Total 0 ml Balance 370 ml Intake Oral 370 ml Output Urine Total 0 ml Laboratory Labs Laboratory Tests Test 03/29/20 12:52 03/29/20 13:39 03/29/20 15:40 03/29/20 17:29 Prothrombin Time 19.7 SEC (11.7-14.0) Prothromb Time International Ratio 1.7 (0.8-1.1) Sodium Level 130 mmol/L (136-145) Potassium Level 5.0 mmol/L (3.5-5.1) Chloride Level 94 mmol/L (98-107) Carbon Dioxide Level 25 mmol/L (21-32) Anion Gap 11 (6-14) Blood Urea Nitrogen 74 mg/dL (7-20) Creatinine 6.9 mg/dL (0.6-1.0) Estimated GFR (Cockcroft-Gault) 6.9 BUN/Creatinine Ratio 11 (6-20) Glucose Level 218 mg/dL (70-99) Calcium Level 7.2 mg/dL (8.5-10.1) Magnesium Level 2.4 mg/dL (1.8-2.4) Total Bilirubin 0.4 mg/dL (0.2-1.0) Aspartate Amino Transf (AST/SGOT) 33 U/L (15-37) Alanine Aminotransferase (ALT/SGPT) 33 U/L (14-59) Alkaline Phosphatase 59 U/L (46-116) Troponin I Quantitative 0.064 ng/mL (0.000-0.055) 0.066 ng/mL (0.000-0.055) BA-Gro-J-Type Natriuretic Peptide 66854 pg/mL (0-449) Total Protein 5.9 g/dL (6.4-8.2) Albumin 2.8 g/dL (3.4-5.0) Albumin/Globulin Ratio 0.9 (1.0-1.7) Thyroid Stimulating Hormone (TSH) 2.783 uIU/mL (0.358-3.74) White Blood Count 6.4 x10^3/uL (4.0-11.0) Red Blood Count 2.61 x10^6/uL (3.50-5.40) Hemoglobin 7.4 g/dL (12.0-15.5) Hematocrit 22.5 % (36.0-47.0) Mean Corpuscular Volume 86 fL (79-100) Mean Corpuscular Hemoglobin 28 pg (25-35) Mean Corpuscular Hemoglobin Concent 33 g/dL (31-37) Red Cell Distribution Width 19.4 % (11.5-14.5) Platelet Count 202 x10^3/uL (140-400) Neutrophils (%) (Auto) 75 % (31-73) Lymphocytes (%) (Auto) 14 % (24-48) Monocytes (%) (Auto) 10 % (0-9) Eosinophils (%) (Auto) 1 % (0-3) Basophils (%) (Auto) 1 % (0-3) Neutrophils # (Auto) 4.8 x10^3/uL (1.8-7.7) Lymphocytes # (Auto) 0.9 x10^3/uL (1.0-4.8) Monocytes # (Auto) 0.6 x10^3/uL (0.0-1.1) Eosinophils # (Auto) 0.1 x10^3/uL (0.0-0.7) Basophils # (Auto) 0.1 x10^3/uL (0.0-0.2) Platelet Estimate Adequate (ADEQUATE) Polychromasia Occasional Hypochromasia Slight Poikilocytosis Mod Anisocytosis Slight Microcytosis Slight Target Cells Occ Stevie Cells Mod Schistocytes Occ Glucose (Fingerstick) 91 mg/dL (70-99) Test 03/29/20 21:10 03/29/20 21:26 03/30/20 06:55 03/30/20 07:00 Troponin I Quantitative 0.064 ng/mL (0.000-0.055) Glucose (Fingerstick) 150 mg/dL (70-99) 107 mg/dL (70-99) White Blood Count 5.5 x10^3/uL (4.0-11.0) Red Blood Count 1.91 x10^6/uL (3.50-5.40) Hemoglobin 5.5 g/dL (12.0-15.5) Hematocrit 16.4 % (36.0-47.0) Mean Corpuscular Volume 86 fL (79-100) Mean Corpuscular Hemoglobin 29 pg (25-35) Mean Corpuscular Hemoglobin Concent 33 g/dL (31-37) Red Cell Distribution Width 19.4 % (11.5-14.5) Platelet Count 218 x10^3/uL (140-400) Neutrophils (%) (Auto) 73 % (31-73) Lymphocytes (%) (Auto) 15 % (24-48) Monocytes (%) (Auto) 11 % (0-9) Eosinophils (%) (Auto) 0 % (0-3) Basophils (%) (Auto) 1 % (0-3) Neutrophils # (Auto) 4.0 x10^3/uL (1.8-7.7) Lymphocytes # (Auto) 0.8 x10^3/uL (1.0-4.8) Monocytes # (Auto) 0.6 x10^3/uL (0.0-1.1) Eosinophils # (Auto) 0.0 x10^3/uL (0.0-0.7) Basophils # (Auto) 0.1 x10^3/uL (0.0-0.2) Sodium Level 132 mmol/L (136-145) Potassium Level 6.1 mmol/L (3.5-5.1) Chloride Level 97 mmol/L (98-107) Carbon Dioxide Level 24 mmol/L (21-32) Anion Gap 11 (6-14) Blood Urea Nitrogen 96 mg/dL (7-20) Creatinine 7.9 mg/dL (0.6-1.0) Estimated GFR (Cockcroft-Gault) 5.9 BUN/Creatinine Ratio 12 (6-20) Glucose Level 107 mg/dL (70-99) Calcium Level 6.9 mg/dL (8.5-10.1) Total Bilirubin 0.2 mg/dL (0.2-1.0) Aspartate Amino Transf (AST/SGOT) 38 U/L (15-37) Alanine Aminotransferase (ALT/SGPT) 46 U/L (14-59) Alkaline Phosphatase 45 U/L (46-116) Total Protein 5.1 g/dL (6.4-8.2) Albumin 2.5 g/dL (3.4-5.0) Albumin/Globulin Ratio 1.0 (1.0-1.7) Physical Exam HEENT: Neck Supple W Full Motion Chest: Symmetric LUNGS: Clear to Auscultation, Other (central chest pressure upon palpitation) Heart: S1S2, RRR Abdomen: Soft N/T Extremities: No Edema Neurology: alert, follow commands, other (forgetful ) Assessment Assessment 1. Chest pain, atypical; Recent LHC revealed no significant CAD. Most probably MSK in origin 2. Acute on chronic diastolic CHF: cath showed EF hyperdynamic at 80%. appears compensated 3. Hypertension: Controlled 4. DM2: Per IM 5. ESRD on HD, hyperkalemia 6. Anemia of chronic disease; hgb down to 5.5. No obvious bleeding 6. Mild troponin elevated; peak 0.066. Most probably type II, demand ischemia 7. Recent DVT on Eliquis therapy Recommendations Transfuse Hold Eliquis for now GI to eval Fluid offloading via HD Continue BP regimen. Supportive care No further cardiac workup warranted as this time Patient to f/u in our office with Dr. Swan as scheduled. Justicifation of Admission Dx: Justifications for Admission: Justification of Admission Dx: Yes CHF: Hemodynamic Instability GAYATHRI SWAN MD 03/30/20 1533: CARDIO Progress Notes Assessment Assessment Patient seen and examined. Agree with E LEARNING DESIGNER's assessment and plan. Chest pain atypical and most probably musculoskeletal Slight troponin elevation probably demand ischemia Recent cardiac catheterization results noted Acute on chronic diastolic heart failure better compensated Continue hemodialysis per nephrology team Agree with holding Eliquis secondary to anemia -work-up per GI team KT REYES APRN Mar 30, 2020 10:55 GAYATHRI SWAN MD Mar 30, 2020 15:33
--- NOTE | 2020-03-30 12:02 | RAD ---
EXAM: Pulmonary perfusion scintigraphy. HISTORY: Chest pain. COMPARISON: 03/29/2020. FINDINGS: 5.5 mCi Tc-99m MAA was administered intravenously. Scintigraphic images of the lungs were obtained in multiple projections. Large defect along the lateral projections likely correspond with the patient's arms. There are no segmental defects. IMPRESSION: 1. No evidence of pulmonary embolism. Electronically signed by: Moon Alvarez MD (03/30/2020 11:59 AM) [id number]
--- NOTE | 2020-03-30 12:16 | RAD ---
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 Informed consent was obtained. A timeout procedure was performed. All elements of maximal sterile barrier technique including the use of a cap, mask, sterile gown, sterile gloves, large sterile sheet, appropriate hand hygiene, and 2% chlorhexidine for cutaneous antisepsis (or acceptable alternative antiseptic per current guidelines) were followed for this procedure. The patient was prepped and draped in the usual sterile fashion. Ultrasound interrogation of the right neck revealed patency and compressibility of the right internal jugular vein. A 21-gauge micropuncture was then used to gain access to this vein under ultrasound guidance. A hard copy ultrasound image was recorded. A guidewire was advanced centrally. 5 Swedish sheath was placed. Over a wire following dilatation, a triple-lumen central venous catheter was advanced centrally. Catheter was found to flush and aspirate normally fluoroscopic imaging demonstrates the catheter to be normal in position. Catheter secured in place and a sterile dressing was applied. No immediate complications were identified. Total fluoroscopy time 0.1 minutes Dose area product 0.1 rojas centimeters squared Impression: Successful ultrasound and fluoroscopically guided placement of right internal jugular triple-lumen central venous catheter
--- NOTE | 2020-03-30 12:35 | NUR ---
SS following for discharge planning. SS reviewed pt chart and discussed with pt RN. Pt is from home and is currently on room air. Pt has outpatient dialysis at [facility], ; fax [phone], Friday, Friday, and Friday. Pt was current on services with [facility], ; fax [phone]. SS will continue to follow for discharge planning.
--- NOTE | 2020-03-30 13:25 | PDOC2 ---
GI CONSULT Date of Service: DATE: 03/30/20 TIME: 13:19 Reason For Consult: anemia HPI: HPI: 84 y/o female seen in dialysis w/ Dr. Tom. Admitted w/ ACP and CHF w/ mild troponin elevation. H/o ESRD and chronic anemia, noted today below baseline w/ Hgb 5.5. On 03/22/20, US noted occlusive DVT left internal jugular vein. Was discharged on Eliquis - INR 1.7. Denies reflux/heartburn, dysphagia, n/v, abd pain, diarrhea, constipation, hematochezia, melena, hematemesis, change in appetite, and weight loss. No previous EGD or colonoscopy. No GB, liver, pancreas, or PUD history. PMH: PMH: HTN, HLD CHF, anemia, ESRD on HD, DM, anxiety, depression right mastectomy, cardiac cath FH: Family History: No pertinent hx Social History: Smoke: Quit (remote) ALCOHOL: none Drugs: None ROS: GEN: Denies fevers, chills, sweats HEENT: Denies blurred vision, sore throat CV: Denies chest pain RESP: Denies shortness of air, cough GI: Per HPI : Denies hematuria, dysuria ENDO: Denies weight changes NEURO: Denies confusion, dizziness MSK: Denies weakness, joint pain/swelling SKIN: Denies jaundice, pruritus Vitals: Vitals: Vital Signs Date Time Temp Pulse Resp B/P (MAP) Pulse Ox O2 Delivery O2 Flow Rate FiO2 03/30/20 12:54 97.6 70 13 124/49 97.6 03/30/20 08:29 Room Air 03/30/20 07:29 95 Labs: Labs: Laboratory Tests Test 03/29/20 13:39 03/29/20 15:40 03/29/20 17:29 03/29/20 21:10 White Blood Count 6.4 x10^3/uL (4.0-11.0) Red Blood Count 2.61 x10^6/uL (3.50-5.40) Hemoglobin 7.4 g/dL (12.0-15.5) Hematocrit 22.5 % (36.0-47.0) Mean Corpuscular Volume 86 fL (79-100) Mean Corpuscular Hemoglobin 28 pg (25-35) Mean Corpuscular Hemoglobin Concent 33 g/dL (31-37) Red Cell Distribution Width 19.4 % (11.5-14.5) Platelet Count 202 x10^3/uL (140-400) Neutrophils (%) (Auto) 75 % (31-73) Lymphocytes (%) (Auto) 14 % (24-48) Monocytes (%) (Auto) 10 % (0-9) Eosinophils (%) (Auto) 1 % (0-3) Basophils (%) (Auto) 1 % (0-3) Neutrophils # (Auto) 4.8 x10^3/uL (1.8-7.7) Lymphocytes # (Auto) 0.9 x10^3/uL (1.0-4.8) Monocytes # (Auto) 0.6 x10^3/uL (0.0-1.1) Eosinophils # (Auto) 0.1 x10^3/uL (0.0-0.7) Basophils # (Auto) 0.1 x10^3/uL (0.0-0.2) Platelet Estimate Adequate (ADEQUATE) Polychromasia Occasional Hypochromasia Slight Poikilocytosis Mod Anisocytosis Slight Microcytosis Slight Target Cells Occ [place] Cells Mod Schistocytes Occ Troponin I Quantitative 0.066 ng/mL (0.000-0.055) 0.064 ng/mL (0.000-0.055) Glucose (Fingerstick) 91 mg/dL (70-99) Test 03/29/20 21:26 03/30/20 06:55 03/30/20 07:00 Glucose (Fingerstick) 150 mg/dL (70-99) 107 mg/dL (70-99) White Blood Count 5.5 x10^3/uL (4.0-11.0) Red Blood Count 1.91 x10^6/uL (3.50-5.40) Hemoglobin 5.5 g/dL (12.0-15.5) Hematocrit 16.4 % (36.0-47.0) Mean Corpuscular Volume 86 fL (79-100) Mean Corpuscular Hemoglobin 29 pg (25-35) Mean Corpuscular Hemoglobin Concent 33 g/dL (31-37) Red Cell Distribution Width 19.4 % (11.5-14.5) Platelet Count 218 x10^3/uL (140-400) Neutrophils (%) (Auto) 73 % (31-73) Lymphocytes (%) (Auto) 15 % (24-48) Monocytes (%) (Auto) 11 % (0-9) Eosinophils (%) (Auto) 0 % (0-3) Basophils (%) (Auto) 1 % (0-3) Neutrophils # (Auto) 4.0 x10^3/uL (1.8-7.7) Lymphocytes # (Auto) 0.8 x10^3/uL (1.0-4.8) Monocytes # (Auto) 0.6 x10^3/uL (0.0-1.1) Eosinophils # (Auto) 0.0 x10^3/uL (0.0-0.7) Basophils # (Auto) 0.1 x10^3/uL (0.0-0.2) Sodium Level 132 mmol/L (136-145) Potassium Level 6.1 mmol/L (3.5-5.1) Chloride Level 97 mmol/L (98-107) Carbon Dioxide Level 24 mmol/L (21-32) Anion Gap 11 (6-14) Blood Urea Nitrogen 96 mg/dL (7-20) Creatinine 7.9 mg/dL (0.6-1.0) Estimated GFR (Cockcroft-Gault) 5.9 BUN/Creatinine Ratio 12 (6-20) Glucose Level 107 mg/dL (70-99) Calcium Level 6.9 mg/dL (8.5-10.1) Total Bilirubin 0.2 mg/dL (0.2-1.0) Aspartate Amino Transf (AST/SGOT) 38 U/L (15-37) Alanine Aminotransferase (ALT/SGPT) 46 U/L (14-59) Alkaline Phosphatase 45 U/L (46-116) Total Protein 5.1 g/dL (6.4-8.2) Albumin 2.5 g/dL (3.4-5.0) Albumin/Globulin Ratio 1.0 (1.0-1.7) Allergies: Coded Allergies: Sulfa (Sulfonamide Antibiotics) (Verified Allergy, Severe, "Ashkan Ubaldo's disease", 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) Medications: Current Medications Medications (Trade) Dose Ordered Sig/Diana Route PRN Reason Start Time Stop Time Status Last Admin Dose Admin Apixaban (Eliquis) 10 mg BID PO 03/29/20 21:00 04/02/20 21:01 03/29/20 20:53 Donepezil HCl (Aricept) 5 mg QHS PO 03/29/20 21:00 03/29/20 20:53 Vitamin B Complex/ Vitamin C (Sarahy-Angelia) 1 tab DAILY PO 03/30/20 09:00 03/30/20 09:18 Ziprasidone (Geodon) 20 mg HS PO 03/29/20 21:00 03/29/20 20:53 Acetaminophen (Tylenol) 650 mg PRN Q6HRS PRN PO MILD PAIN / TEMP > 100.3'F 03/30/20 03:00 03/30/20 04:28 Imaging: Imaging: CXR IMPRESSION: Stable cardiomegaly with no superimposed active cardiopulmonary disease. VQ Scan IMPRESSION: 1. No evidence of pulmonary embolism. Interventional Procedure Impression: Successful ultrasound and fluoroscopically guided placement of right internal jugular triple-lumen central venous catheter PE: GEN: dialyzing HEENT: Atraumatic, PERRL LUNGS: CTAB HEART: RRR ABD: NABS, S/ND/NT EXTREMITY: No edema SKIN: No rashes, no jaundice NEURO/PSYCH: A & O 3 A/P: A/P: Normocytic anemia - Hgb worse w/o obvious bleeding CHF, ESRD on HD CRC screen - none Recent LIJ DVT on Eliquis -- Agree w/ transfusion. 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 Monitor labs and for bleeding. DANYELL COLE Mar 30, 2020 13:25
[2020-03-30 15:45] LABS: HEMATOCRIT 24.3 % (36.0-47.0); HEMOGLOBIN 8.4 g/dL (12.0-15.5)
--- NOTE | 2020-03-30 19:46 | PDOC ---
PROGRESS NOTES Date of Service: DATE: 03/30/20 TIME: 19:41 Chief Complaint Chief Complaint ASSESSMENT/PLAN 1. Chest pain, atypical; Recent LHC revealed no significant CAD. Most probably MSK in origin HEART CATH FINDINGS 1. Hemodynamics: Left ventricular end-diastolic pressure of 21 mmHg. No pullback gradient across the aortic valve. 2. Left ventriculography: Hyperdynamic left ventricle systolic function with ejection fraction estimated at 80%. No significant mitral regurgitation seen. 3. Coronary angiography: a. The left main coronary artery arose from the left sinus of Valsalva, gave rise to the left anterior descending and left circumflex arteries and did not show any significant stenosis. b. The left anterior descending artery did not show any significant stenosis. c. The left circumflex artery did not show any significant stenosis. d. The right coronary artery was a dominant vessel arising from the right sinus of Valsalva that did not show any significant stenosis. Conclusion 1. No significant coronary disease 2. Hyperdynamic left ventricle systolic function with ejection fraction estimated at 80%. Recommendations Patient's non-STEMI is most probably type II/demand ischemia. Continue medical management. DATE: 03/06/20 1120 Hyperkalemia Internal lJugular thrombosis, on anticoagulation with Eliquis Acute on chronic diastolic CHF: cath showed EF hyperdynamic at 80%. appears compensated Essential Hypertension DM2 ESRD on HD nstemi type II, demand ischemia Type 2. secondary to profound anemia iron deficiency anemia Plan: hold eliquis consult GI no evidence of bleeding will provide iron supplementation folow recs from nephrology transfuse 2 units of PRBC recheck h and h in the am follow recommendations from cardiology as follows Recommendations Trend troponin Echo to assess LV systolic function Fluid offloading via HD will stop Eliquis History of Present Illness History of Present Illness In no acute distress, no chest pain or palpitations, sduaghter at bedside, plan of care discussed in detail. Vitals Vitals Vital Signs Date Time Temp Pulse Resp B/P (MAP) Pulse Ox O2 Delivery O2 Flow Rate FiO2 03/30/20 15:00 97.7 88 16 149/46 (80) 98 Room Air 97.7 Physical Exam General: Alert, Oriented X3, Cooperative, No acute distress Heart: Regular rate Lungs: Clear Abdomen: Normal bowel sounds, Soft, No tenderness, No hepatosplenomegaly, No masses Extremities: Other ( LUE with a new dialysis fistula no signs of infection) Skin: No rashes, No breakdown, No significant lesion Labs LABS Laboratory Tests Test 03/29/20 21:10 03/29/20 21:26 03/30/20 06:55 03/30/20 07:00 Troponin I Quantitative 0.064 ng/mL (0.000-0.055) Glucose (Fingerstick) 150 mg/dL (70-99) 107 mg/dL (70-99) White Blood Count 5.5 x10^3/uL (4.0-11.0) Red Blood Count 1.91 x10^6/uL (3.50-5.70) Hemoglobin 5.5 g/dL (12.0-15.5) Hematocrit 16.4 % (36.0-47.0) Mean Corpuscular Volume 86 fL (79-100) Mean Corpuscular Hemoglobin 29 pg (25-35) Mean Corpuscular Hemoglobin Concent 33 g/dL (31-37) Red Cell Distribution Width 19.4 % (11.5-14.5) Platelet Count 218 x10^3/uL (140-400) Neutrophils (%) (Auto) 73 % (31-73) Lymphocytes (%) (Auto) 15 % (24-48) Monocytes (%) (Auto) 11 % (0-9) Eosinophils (%) (Auto) 0 % (0-3) Basophils (%) (Auto) 1 % (0-3) Neutrophils # (Auto) 4.0 x10^3/uL (1.8-7.7) Lymphocytes # (Auto) 0.8 x10^3/uL (1.0-4.8) Monocytes # (Auto) 0.6 x10^3/uL (0.0-1.1) Eosinophils # (Auto) 0.0 x10^3/uL (0.0-0.7) Basophils # (Auto) 0.1 x10^3/uL (0.0-0.2) Absolute Reticulocyte Count 0.053 x10^6/uL (0.020-0.120) Percent Reticulocyte Count 2.8 % (0.5-2.3) Immature Reticulocyte Fraction 0.69 (0.20-0.60) Sodium Level 132 mmol/L (136-145) Potassium Level 6.1 mmol/L (3.5-5.1) Chloride Level 97 mmol/L (98-107) Carbon Dioxide Level 24 mmol/L (21-32) Anion Gap 11 (6-14) Blood Urea Nitrogen 96 mg/dL (7-20) Creatinine 7.9 mg/dL (0.6-1.0) Estimated GFR (Cockcroft-Gault) 5.9 BUN/Creatinine Ratio 12 (6-20) Glucose Level 107 mg/dL (70-99) Calcium Level 6.9 mg/dL (8.5-10.1) Iron Level 61 ug/dL (50-170) Total Iron Binding Capacity 140 ug/dL (250-450) Iron Saturation 44 % (15-34) Total Bilirubin 0.2 mg/dL (0.2-1.0) Aspartate Amino Transf (AST/SGOT) 38 U/L (15-37) Alanine Aminotransferase (ALT/SGPT) 46 U/L (14-59) Alkaline Phosphatase 45 U/L (46-116) Total Protein 5.1 g/dL (6.4-8.2) Albumin 2.5 g/dL (3.4-5.0) Albumin/Globulin Ratio 1.0 (1.0-1.7) Vitamin B12 Level 651 pg/mL (247-911) Test 03/30/20 15:30 03/30/20 16:28 Hemoglobin 8.4 g/dL (12.0-15.5) Hematocrit 24.3 % (36.0-47.0) Mean Corpuscular Hemoglobin Concent 34 g/dL (31-37) Glucose (Fingerstick) 94 mg/dL (70-99) Assessment and Plan Assessmemt and Plan Problems Medical Problems: (1) Chest pain Status: Acute Comment Review of Relevant I have reviewed the following items rose (where applicable) has been applied. Labs Laboratory Tests Test 03/29/20 12:52 03/29/20 13:39 03/29/20 15:40 03/29/20 17:29 Prothrombin Time 19.7 SEC (11.7-14.0) Prothromb Time International Ratio 1.7 (0.8-1.1) Sodium Level 130 mmol/L (136-145) Potassium Level 5.0 mmol/L (3.5-5.1) Chloride Level 94 mmol/L (98-107) Carbon Dioxide Level 25 mmol/L (21-32) Anion Gap 11 (6-14) Blood Urea Nitrogen 74 mg/dL (7-20) Creatinine 6.9 mg/dL (0.6-1.0) Estimated GFR (Cockcroft-Gault) 6.9 BUN/Creatinine Ratio 11 (6-20) Glucose Level 218 mg/dL (70-99) Calcium Level 7.2 mg/dL (8.5-10.1) Magnesium Level 2.4 mg/dL (1.8-2.4) Total Bilirubin 0.4 mg/dL (0.2-1.0) Aspartate Amino Transf (AST/SGOT) 33 U/L (15-37) Alanine Aminotransferase (ALT/SGPT) 33 U/L (14-59) Alkaline Phosphatase 59 U/L (46-116) Troponin I Quantitative 0.064 ng/mL (0.000-0.055) 0.066 ng/mL (0.000-0.055) BP-Rsn-T-Type Natriuretic Peptide 67837 pg/mL (0-449) Total Protein 5.9 g/dL (6.4-8.2) Albumin 2.8 g/dL (3.4-5.0) Albumin/Globulin Ratio 0.9 (1.0-1.7) Thyroid Stimulating Hormone (TSH) 2.783 uIU/mL (0.358-3.74) White Blood Count 6.4 x10^3/uL (4.0-11.0) Red Blood Count 2.61 x10^6/uL (3.50-5.40) Hemoglobin 7.4 g/dL (12.0-15.5) Hematocrit 22.5 % (36.0-47.0) Mean Corpuscular Volume 86 fL (79-100) Mean Corpuscular Hemoglobin 28 pg (25-35) Mean Corpuscular Hemoglobin Concent 33 g/dL (31-37) Red Cell Distribution Width 19.4 % (11.5-14.5) Platelet Count 202 x10^3/uL (140-400) Neutrophils (%) (Auto) 75 % (31-73) Lymphocytes (%) (Auto) 14 % (24-48) Monocytes (%) (Auto) 10 % (0-9) Eosinophils (%) (Auto) 1 % (0-3) Basophils (%) (Auto) 1 % (0-3) Neutrophils # (Auto) 4.8 x10^3/uL (1.8-7.7) Lymphocytes # (Auto) 0.9 x10^3/uL (1.0-4.8) Monocytes # (Auto) 0.6 x10^3/uL (0.0-1.1) Eosinophils # (Auto) 0.1 x10^3/uL (0.0-0.7) Basophils # (Auto) 0.1 x10^3/uL (0.0-0.2) Platelet Estimate Adequate (ADEQUATE) Polychromasia Occasional Hypochromasia Slight Poikilocytosis Mod Anisocytosis Slight Microcytosis Slight Target Cells Occ [place] Cells Mod Schistocytes Occ Glucose (Fingerstick) 91 mg/dL (70-99) Test 03/29/20 21:10 03/29/20 21:26 03/30/20 06:55 03/30/20 07:00 Troponin I Quantitative 0.064 ng/mL (0.000-0.055) Glucose (Fingerstick) 150 mg/dL (70-99) 107 mg/dL (70-99) White Blood Count 5.5 x10^3/uL (4.0-11.0) Red Blood Count 1.91 x10^6/uL (3.50-5.70) Hemoglobin 5.5 g/dL (12.0-15.5) Hematocrit 16.4 % (36.0-47.0) Mean Corpuscular Volume 86 fL (79-100) Mean Corpuscular Hemoglobin 29 pg (25-35) Mean Corpuscular Hemoglobin Concent 33 g/dL (31-37) Red Cell Distribution Width 19.4 % (11.5-14.5) Platelet Count 218 x10^3/uL (140-400) Neutrophils (%) (Auto) 73 % (31-73) Lymphocytes (%) (Auto) 15 % (24-48) Monocytes (%) (Auto) 11 % (0-9) Eosinophils (%) (Auto) 0 % (0-3) Basophils (%) (Auto) 1 % (0-3) Neutrophils # (Auto) 4.0 x10^3/uL (1.8-7.7) Lymphocytes # (Auto) 0.8 x10^3/uL (1.0-4.8) Monocytes # (Auto) 0.6 x10^3/uL (0.0-1.1) Eosinophils # (Auto) 0.0 x10^3/uL (0.0-0.7) Basophils # (Auto) 0.1 x10^3/uL (0.0-0.2) Absolute Reticulocyte Count 0.053 x10^6/uL (0.020-0.120) Percent Reticulocyte Count 2.8 % (0.5-2.3) Immature Reticulocyte Fraction 0.69 (0.20-0.60) Sodium Level 132 mmol/L (136-145) Potassium Level 6.1 mmol/L (3.5-5.1) Chloride Level 97 mmol/L (98-107) Carbon Dioxide Level 24 mmol/L (21-32) Anion Gap 11 (6-14) Blood Urea Nitrogen 96 mg/dL (7-20) Creatinine 7.9 mg/dL (0.6-1.0) Estimated GFR (Cockcroft-Gault) 5.9 BUN/Creatinine Ratio 12 (6-20) Glucose Level 107 mg/dL (70-99) Calcium Level 6.9 mg/dL (8.5-10.1) Iron Level 61 ug/dL (50-170) Total Iron Binding Capacity 140 ug/dL (250-450) Iron Saturation 44 % (15-34) Total Bilirubin 0.2 mg/dL (0.2-1.0) Aspartate Amino Transf (AST/SGOT) 38 U/L (15-37) Alanine Aminotransferase (ALT/SGPT) 46 U/L (14-59) Alkaline Phosphatase 45 U/L (46-116) Total Protein 5.1 g/dL (6.4-8.2) Albumin 2.5 g/dL (3.4-5.0) Albumin/Globulin Ratio 1.0 (1.0-1.7) Vitamin B12 Level 651 pg/mL (247-911) Test 03/30/20 15:30 03/30/20 16:28 Hemoglobin 8.4 g/dL (12.0-15.5) Hematocrit 24.3 % (36.0-47.0) Mean Corpuscular Hemoglobin Concent 34 g/dL (31-37) Glucose (Fingerstick) 94 mg/dL (70-99) Laboratory Tests Test 03/29/20 21:10 03/29/20 21:26 03/30/20 06:55 03/30/20 07:00 Troponin I Quantitative 0.064 ng/mL (0.000-0.055) Glucose (Fingerstick) 150 mg/dL (70-99) 107 mg/dL (70-99) White Blood Count 5.5 x10^3/uL (4.0-11.0) Red Blood Count 1.91 x10^6/uL (3.50-5.70) Hemoglobin 5.5 g/dL (12.0-15.5) Hematocrit 16.4 % (36.0-47.0) Mean Corpuscular Volume 86 fL (79-100) Mean Corpuscular Hemoglobin 29 pg (25-35) Mean Corpuscular Hemoglobin Concent 33 g/dL (31-37) Red Cell Distribution Width 19.4 % (11.5-14.5) Platelet Count 218 x10^3/uL (140-400) Neutrophils (%) (Auto) 73 % (31-73) Lymphocytes (%) (Auto) 15 % (24-48) Monocytes (%) (Auto) 11 % (0-9) Eosinophils (%) (Auto) 0 % (0-3) Basophils (%) (Auto) 1 % (0-3) Neutrophils # (Auto) 4.0 x10^3/uL (1.8-7.7) Lymphocytes # (Auto) 0.8 x10^3/uL (1.0-4.8) Monocytes # (Auto) 0.6 x10^3/uL (0.0-1.1) Eosinophils # (Auto) 0.0 x10^3/uL (0.0-0.7) Basophils # (Auto) 0.1 x10^3/uL (0.0-0.2) Absolute Reticulocyte Count 0.053 x10^6/uL (0.020-0.120) Percent Reticulocyte Count 2.8 % (0.5-2.3) Immature Reticulocyte Fraction 0.69 (0.20-0.60) Sodium Level 132 mmol/L (136-145) Potassium Level 6.1 mmol/L (3.5-5.1) Chloride Level 97 mmol/L (98-107) Carbon Dioxide Level 24 mmol/L (21-32) Anion Gap 11 (6-14) Blood Urea Nitrogen 96 mg/dL (7-20) Creatinine 7.9 mg/dL (0.6-1.0) Estimated GFR (Cockcroft-Gault) 5.9 BUN/Creatinine Ratio 12 (6-20) Glucose Level 107 mg/dL (70-99) Calcium Level 6.9 mg/dL (8.5-10.1) Iron Level 61 ug/dL (50-170) Total Iron Binding Capacity 140 ug/dL (250-450) Iron Saturation 44 % (15-34) Total Bilirubin 0.2 mg/dL (0.2-1.0) Aspartate Amino Transf (AST/SGOT) 38 U/L (15-37) Alanine Aminotransferase (ALT/SGPT) 46 U/L (14-59) Alkaline Phosphatase 45 U/L (46-116) Total Protein 5.1 g/dL (6.4-8.2) Albumin 2.5 g/dL (3.4-5.0) Albumin/Globulin Ratio 1.0 (1.0-1.7) Vitamin B12 Level 651 pg/mL (247-911) Test 03/30/20 15:30 03/30/20 16:28 Hemoglobin 8.4 g/dL (12.0-15.5) Hematocrit 24.3 % (36.0-47.0) Mean Corpuscular Hemoglobin Concent 34 g/dL (31-37) Glucose (Fingerstick) 94 mg/dL (70-99) Medications Current Medications Aspirin (Cherise Aspirin) 325 mg 1X ONCE PO ; Start 03/29/20 at 13:00; Stop 03/29/20 at 13:01; Status DC Nitroglycerin (Nitrostat) 0.4 mg PRN Q5MIN PRN SL CP RATING > 1/10; Start 03/29/20 at 13:00; Stop 03/30/20 at 12:59; Status Cancel Morphine Sulfate (Morphine Sulfate) 4 mg PRN Q15MIN PRN IV/SQ PAIN GREATER THAN 3/10; Start 03/29/20 at 13:00; Stop 03/29/20 at 17:24; Status DC Ondansetron HCl (Zofran) 4 mg PRN Q8HRS PRN IV NAUSEA/VOMITING; Start 03/29/20 at 15:30; Stop 03/30/20 at 15:29; Status DC Morphine Sulfate (Morphine Sulfate) 2 mg PRN Q2HR PRN IV PAIN; Start 03/29/20 at 15:30; Stop 03/30/20 at 15:29; Status DC Nitroglycerin (Nitrostat) 0.4 mg PRN Q5MIN PRN SL CHEST PAIN; Start 03/29/20 at 15:30; Stop 03/30/20 at 15:29; Status DC Apixaban (Eliquis) 10 mg BID PO Last administered on 03/29/20at 20:53; Start 03/29/20 at 21:00; Stop 03/30/20 at 15:45; Status DC Donepezil HCl (Aricept) 5 mg QHS PO Last administered on 03/29/20at 20:53; Start 03/29/20 at 21:00 Ergocalciferol (Vitamin D2) 50,000 unit WEEKLY PO ; Start 04/05/20 at 09:00 Vitamin B Complex/ Vitamin C (Sarahy-Angelia) 1 tab DAILY PO Last administered on 03/30/20at 09:18; Start 03/30/20 at 09:00 Hydralazine HCl (Apresoline) 25 mg BID PO ; Start 03/29/20 at 21:00 Losartan Potassium (Cozaar) 25 mg BID PO ; Start 03/29/20 at 21:00 Ziprasidone (Geodon) 20 mg HS PO Last administered on 03/29/20at 20:53; Start 03/29/20 at 21:00 Apixaban (Eliquis) 5 mg BID PO ; Start 04/03/20 at 09:00; Status Cancel Acetaminophen (Tylenol) 650 mg PRN Q6HRS PRN PO MILD PAIN / TEMP > 100.3'F Last administered on 03/30/20at 04:28; Start 03/30/20 at 03:00 Ibuprofen (Motrin) 400 mg PRN Q6HRS PRN PO INFLAMMATION; Start 03/30/20 at 03:00 Info (PHARMACY MONITORING -- do not chart) 1 each PRN DAILY PRN MC SEE COMMENTS; Start 03/30/20 at 10:15 Info (PHARMACY MONITORING -- do not chart) 1 each PRN DAILY PRN MC SEE COMMENTS; Start 03/30/20 at 10:15; Status UNV Pantoprazole Sodium (Protonix) 40 mg DAILYAC PO ; Start 03/31/20 at 07:30 Active Scripts Active Reported Eliquis (Apixaban) 5 Mg Tablet 10 Mg PO DAILY 7 Days Sarahy-Angelia Tablet (Folic Acid/Vitamin B Comp W-C) 0.8 Mg Tablet 1 Tab PO DAILY 30 Days Vitamin D2 (Ergocalciferol (Vitamin D2)) 1,250 Mcg Capsule 1,250 Mcg PO WEEKLY Donepezil Hcl 5 Mg Tablet 5 Mg PO QHS Ziprasidone Hcl 20 Mg Capsule 20 Mg PO HS Hydralazine Hcl 25 Mg Tablet 1 Tab PO BID Vitals/I & O Vital Sign - Last 24 Hours 03/29/20 03/29/20 03/29/20 03/29/20 19:48 20:19 21:00 21:00 Temp 98.3 98.3 Pulse 75 76 76 Resp 16 B/P (MAP) 119/36 (63) 125/36 125/36 Pulse Ox 98 O2 Delivery Room Air Room Air 03/29/20 03/30/20 03/30/20 03/30/20 23:46 02:16 07:29 08:01 Temp 98.1 98.4 98.6 98.1 98.4 98.6 Pulse 90 87 69 70 Resp 16 16 16 B/P (MAP) 126/43 (70) 138/39 (72) 102/32 (55) 108/35 (59) Pulse Ox 94 96 95 O2 Delivery Room Air Room Air Room Air 03/30/20 03/30/20 03/30/20 03/30/20 08:29 11:45 12:15 12:34 Temp 97.4 97.6 97.6 97.4 97.6 97.6 Pulse 70 62 83 Resp 15 14 14 B/P (MAP) 108/43 117/37 126/48 O2 Delivery Room Air 03/30/20 03/30/20 03/30/20 03/30/20 12:54 13:15 13:42 15:00 Temp 97.6 97.3 98.2 97.7 97.6 97.3 98.2 97.7 Pulse 70 70 77 88 Resp 13 14 12 16 B/P (MAP) 124/49 117/44 138/56 149/46 (80) Pulse Ox 98 O2 Delivery Room Air Intake and Output 03/29/20 03/29/20 03/30/20 15:00 23:00 07:00 Intake Total 370 ml 0 ml Output Total 0 ml Balance 370 ml 0 ml Justicifation of Admission Dx: Justifications for Admission: Justification of Admission Dx: Yes CHF: Hemodynamic Instability RUSSELL ESCALERA MD Mar 30, 2020 19:46
[2020-03-30] MEDS: DONEPEZIL HCL 5 MG TABLET. PO SCH (20:57)
[2020-03-30] MEDS: ZIPRASIDONE 20 MG CAPSULE PO SCH (20:57)
[2020-03-31 03:25] VITALS: BP 119/40
[2020-03-31 07:00] VITALS: BP 119/46
[2020-03-31 07:04] LABS: HEMATOCRIT 22.5 % (36.0-47.0); HEMOGLOBIN 7.5 g/dL (12.0-15.5); RED BLOOD COUNT 2.62 x10^6/uL (3.50-5.40); RED CELL DISTRIBUTION WIDTH 17.6 % (11.5-14.5); WHITE BLOOD COUNT 5.8 x10^3/uL (4.0-11.0)
[2020-03-31] MEDS: PANTOPRAZOLE 40 MG TABLET.DR. PO SCH (07:06)
--- NOTE | 2020-03-31 08:36 | PDOC ---
PROGRESS NOTES Date of Service: DATE: 03/31/20 TIME: 08:35 Chief Complaint Chief Complaint ASSESSMENT/PLAN 1. Chest pain, atypical; Recent LHC revealed no significant CAD. Most likely costochondritis HEART CATH FINDINGS 1. Hemodynamics: Left ventricular end-diastolic pressure of 21 mmHg. No pullback gradient across the aortic valve. 2. Left ventriculography: Hyperdynamic left ventricle systolic function with ejection fraction estimated at 80%. No significant mitral regurgitation seen. 3. Coronary angiography: a. The left main coronary artery arose from the left sinus of Valsalva, gave rise to the left anterior descending and left circumflex arteries and did not show any significant stenosis. b. The left anterior descending artery did not show any significant stenosis. c. The left circumflex artery did not show any significant stenosis. d. The right coronary artery was a dominant vessel arising from the right sinus of Valsalva that did not show any significant stenosis. Conclusion 1. No significant coronary disease 2. Hyperdynamic left ventricle systolic function with ejection fraction estimated at 80%. Recommendations Patient's non-STEMI is most probably type II/demand ischemia. Continue medical management. DATE: 03/06/20 1120 Hyperkalemia Internal [facility] thrombosis, on anticoagulation with Eliquis Acute on chronic diastolic CHF: cath showed EF hyperdynamic at 80%. appears compensated Essential Hypertension DM2 ESRD on HD nstemi type II, demand ischemia Type 2. secondary to profound anemia iron deficiency anemia Severe malnutrition Plan: hold eliquis consult GI no evidence of bleeding will provide iron supplementation folow recs from nephrology transfuse 2 units of PRBC recheck h and h in the am follow recommendations from cardiology as follows Recommendations Trend troponin Echo to assess LV systolic function Fluid offloading via HD will stop Eliquis History of Present Illness History of Present Illness In no acute distress, no chest pain or palpitations, sduaghter at bedside, plan of care discussed in detail. Vitals Vitals Vital Signs Date Time Temp Pulse Resp B/P (MAP) Pulse Ox O2 Delivery O2 Flow Rate FiO2 03/31/20 07:39 Room Air 03/31/20 07:00 97.7 78 18 119/46 (70) 96 97.7 Physical Exam General: Alert, Oriented X3, Cooperative, No acute distress Heart: Regular rate Lungs: Clear Abdomen: Normal bowel sounds, Soft, No tenderness, No hepatosplenomegaly, No masses Extremities: Other ( LUE with a new dialysis fistula no signs of infection) Skin: No rashes, No breakdown, No significant lesion Labs LABS Laboratory Tests Test 03/30/20 15:30 03/30/20 16:28 03/30/20 20:45 03/31/20 06:30 Hemoglobin 8.4 g/dL (12.0-15.5) 7.5 g/dL (12.0-15.5) Hematocrit 24.3 % (36.0-47.0) 22.5 % (36.0-47.0) Mean Corpuscular Hemoglobin Concent 34 g/dL (31-37) 34 g/dL (31-37) Glucose (Fingerstick) 94 mg/dL (70-99) 164 mg/dL (70-99) White Blood Count 5.8 x10^3/uL (4.0-11.0) Red Blood Count 2.62 x10^6/uL (3.50-5.40) Mean Corpuscular Volume 86 fL (79-100) Mean Corpuscular Hemoglobin 29 pg (25-35) Red Cell Distribution Width 17.6 % (11.5-14.5) Platelet Count 222 x10^3/uL (140-400) Test 03/31/20 06:58 Glucose (Fingerstick) 100 mg/dL (70-99) Assessment and Plan Assessmemt and Plan Problems Medical Problems: (1) Chest pain Status: Acute Comment Review of Relevant I have reviewed the following items rose (where applicable) has been applied. Labs Laboratory Tests Test 03/29/20 12:52 03/29/20 13:39 03/29/20 15:40 03/29/20 17:29 Prothrombin Time 19.7 SEC (11.7-14.0) Prothromb Time International Ratio 1.7 (0.8-1.1) Sodium Level 130 mmol/L (136-145) Potassium Level 5.0 mmol/L (3.5-5.1) Chloride Level 94 mmol/L (98-107) Carbon Dioxide Level 25 mmol/L (21-32) Anion Gap 11 (6-14) Blood Urea Nitrogen 74 mg/dL (7-20) Creatinine 6.9 mg/dL (0.6-1.0) Estimated GFR (Cockcroft-Gault) 6.9 BUN/Creatinine Ratio 11 (6-20) Glucose Level 218 mg/dL (70-99) Calcium Level 7.2 mg/dL (8.5-10.1) Magnesium Level 2.4 mg/dL (1.8-2.4) Total Bilirubin 0.4 mg/dL (0.2-1.0) Aspartate Amino Transf (AST/SGOT) 33 U/L (15-37) Alanine Aminotransferase (ALT/SGPT) 33 U/L (14-59) Alkaline Phosphatase 59 U/L (46-116) Troponin I Quantitative 0.064 ng/mL (0.000-0.055) 0.066 ng/mL (0.000-0.055) JK-Ths-T-Type Natriuretic Peptide 82755 pg/mL (0-449) Total Protein 5.9 g/dL (6.4-8.2) Albumin 2.8 g/dL (3.4-5.0) Albumin/Globulin Ratio 0.9 (1.0-1.7) Thyroid Stimulating Hormone (TSH) 2.783 uIU/mL (0.358-3.74) White Blood Count 6.4 x10^3/uL (4.0-11.0) Red Blood Count 2.61 x10^6/uL (3.50-5.40) Hemoglobin 7.4 g/dL (12.0-15.5) Hematocrit 22.5 % (36.0-47.0) Mean Corpuscular Volume 86 fL (79-100) Mean Corpuscular Hemoglobin 28 pg (25-35) Mean Corpuscular Hemoglobin Concent 33 g/dL (31-37) Red Cell Distribution Width 19.4 % (11.5-14.5) Platelet Count 202 x10^3/uL (140-400) Neutrophils (%) (Auto) 75 % (31-73) Lymphocytes (%) (Auto) 14 % (24-48) Monocytes (%) (Auto) 10 % (0-9) Eosinophils (%) (Auto) 1 % (0-3) Basophils (%) (Auto) 1 % (0-3) Neutrophils # (Auto) 4.8 x10^3/uL (1.8-7.7) Lymphocytes # (Auto) 0.9 x10^3/uL (1.0-4.8) Monocytes # (Auto) 0.6 x10^3/uL (0.0-1.1) Eosinophils # (Auto) 0.1 x10^3/uL (0.0-0.7) Basophils # (Auto) 0.1 x10^3/uL (0.0-0.2) Platelet Estimate Adequate (ADEQUATE) Polychromasia Occasional Hypochromasia Slight Poikilocytosis Mod Anisocytosis Slight Microcytosis Slight Target Cells Occ Stevie Cells Mod Schistocytes Occ Glucose (Fingerstick) 91 mg/dL (70-99) Test 03/29/20 21:10 03/29/20 21:26 03/30/20 06:55 03/30/20 07:00 Troponin I Quantitative 0.064 ng/mL (0.000-0.055) Glucose (Fingerstick) 150 mg/dL (70-99) 107 mg/dL (70-99) White Blood Count 5.5 x10^3/uL (4.0-11.0) Red Blood Count 1.91 x10^6/uL (3.50-5.70) Hemoglobin 5.5 g/dL (12.0-15.5) Hematocrit 16.4 % (36.0-47.0) Mean Corpuscular Volume 86 fL (79-100) Mean Corpuscular Hemoglobin 29 pg (25-35) Mean Corpuscular Hemoglobin Concent 33 g/dL (31-37) Red Cell Distribution Width 19.4 % (11.5-14.5) Platelet Count 218 x10^3/uL (140-400) Neutrophils (%) (Auto) 73 % (31-73) Lymphocytes (%) (Auto) 15 % (24-48) Monocytes (%) (Auto) 11 % (0-9) Eosinophils (%) (Auto) 0 % (0-3) Basophils (%) (Auto) 1 % (0-3) Neutrophils # (Auto) 4.0 x10^3/uL (1.8-7.7) Lymphocytes # (Auto) 0.8 x10^3/uL (1.0-4.8) Monocytes # (Auto) 0.6 x10^3/uL (0.0-1.1) Eosinophils # (Auto) 0.0 x10^3/uL (0.0-0.7) Basophils # (Auto) 0.1 x10^3/uL (0.0-0.2) Absolute Reticulocyte Count 0.053 x10^6/uL (0.020-0.120) Percent Reticulocyte Count 2.8 % (0.5-2.3) Immature Reticulocyte Fraction 0.69 (0.20-0.60) Sodium Level 132 mmol/L (136-145) Potassium Level 6.1 mmol/L (3.5-5.1) Chloride Level 97 mmol/L (98-107) Carbon Dioxide Level 24 mmol/L (21-32) Anion Gap 11 (6-14) Blood Urea Nitrogen 96 mg/dL (7-20) Creatinine 7.9 mg/dL (0.6-1.0) Estimated GFR (Cockcroft-Gault) 5.9 BUN/Creatinine Ratio 12 (6-20) Glucose Level 107 mg/dL (70-99) Calcium Level 6.9 mg/dL (8.5-10.1) Iron Level 61 ug/dL (50-170) Total Iron Binding Capacity 140 ug/dL (250-450) Iron Saturation 44 % (15-34) Total Bilirubin 0.2 mg/dL (0.2-1.0) Aspartate Amino Transf (AST/SGOT) 38 U/L (15-37) Alanine Aminotransferase (ALT/SGPT) 46 U/L (14-59) Alkaline Phosphatase 45 U/L (46-116) Total Protein 5.1 g/dL (6.4-8.2) Albumin 2.5 g/dL (3.4-5.0) Albumin/Globulin Ratio 1.0 (1.0-1.7) Vitamin B12 Level 651 pg/mL (247-911) Test 03/30/20 15:30 03/30/20 16:28 03/30/20 20:45 03/31/20 06:30 Hemoglobin 8.4 g/dL (12.0-15.5) 7.5 g/dL (12.0-15.5) Hematocrit 24.3 % (36.0-47.0) 22.5 % (36.0-47.0) Mean Corpuscular Hemoglobin Concent 34 g/dL (31-37) 34 g/dL (31-37) Glucose (Fingerstick) 94 mg/dL (70-99) 164 mg/dL (70-99) White Blood Count 5.8 x10^3/uL (4.0-11.0) Red Blood Count 2.62 x10^6/uL (3.50-5.40) Mean Corpuscular Volume 86 fL (79-100) Mean Corpuscular Hemoglobin 29 pg (25-35) Red Cell Distribution Width 17.6 % (11.5-14.5) Platelet Count 222 x10^3/uL (140-400) Test 03/31/20 06:58 Glucose (Fingerstick) 100 mg/dL (70-99) Laboratory Tests Test 03/30/20 15:30 03/30/20 16:28 03/30/20 20:45 03/31/20 06:30 Hemoglobin 8.4 g/dL (12.0-15.5) 7.5 g/dL (12.0-15.5) Hematocrit 24.3 % (36.0-47.0) 22.5 % (36.0-47.0) Mean Corpuscular Hemoglobin Concent 34 g/dL (31-37) 34 g/dL (31-37) Glucose (Fingerstick) 94 mg/dL (70-99) 164 mg/dL (70-99) White Blood Count 5.8 x10^3/uL (4.0-11.0) Red Blood Count 2.62 x10^6/uL (3.50-5.40) Mean Corpuscular Volume 86 fL (79-100) Mean Corpuscular Hemoglobin 29 pg (25-35) Red Cell Distribution Width 17.6 % (11.5-14.5) Platelet Count 222 x10^3/uL (140-400) Test 03/31/20 06:58 Glucose (Fingerstick) 100 mg/dL (70-99) Medications Current Medications Aspirin (Cherise Aspirin) 325 mg 1X ONCE PO ; Start 03/29/20 at 13:00; Stop 03/29/20 at 13:01; Status DC Nitroglycerin (Nitrostat) 0.4 mg PRN Q5MIN PRN SL CP RATING > 1/10; Start 03/29/20 at 13:00; Stop 03/30/20 at 12:59; Status Cancel Morphine Sulfate (Morphine Sulfate) 4 mg PRN Q15MIN PRN IV/SQ PAIN GREATER THAN 3/10; Start 03/29/20 at 13:00; Stop 03/29/20 at 17:24; Status DC Ondansetron HCl (Zofran) 4 mg PRN Q8HRS PRN IV NAUSEA/VOMITING; Start 03/29/20 at 15:30; Stop 03/30/20 at 15:29; Status DC Morphine Sulfate (Morphine Sulfate) 2 mg PRN Q2HR PRN IV PAIN; Start 03/29/20 at 15:30; Stop 03/30/20 at 15:29; Status DC Nitroglycerin (Nitrostat) 0.4 mg PRN Q5MIN PRN SL CHEST PAIN; Start 03/29/20 at 15:30; Stop 03/30/20 at 15:29; Status DC Apixaban (Eliquis) 10 mg BID PO Last administered on 03/29/20at 20:53; Start 03/29/20 at 21:00; Stop 03/30/20 at 15:45; Status DC Donepezil HCl (Aricept) 5 mg QHS PO Last administered on 03/30/20at 20:57; Start 03/29/20 at 21:00 Ergocalciferol (Vitamin D2) 50,000 unit WEEKLY PO ; Start 04/05/20 at 09:00 Vitamin B Complex/ Vitamin C (Sarahy-Angelia) 1 tab DAILY PO Last administered on 03/30/20at 09:18; Start 03/30/20 at 09:00 Hydralazine HCl (Apresoline) 25 mg BID PO Last administered on 03/30/20at 20:57; Start 03/29/20 at 21:00 Losartan Potassium (Cozaar) 25 mg BID PO Last administered on 03/30/20at 20:58; Start 03/29/20 at 21:00 Ziprasidone (Geodon) 20 mg HS PO Last administered on 03/30/20at 20:57; Start 03/29/20 at 21:00 Apixaban (Eliquis) 5 mg BID PO ; Start 04/03/20 at 09:00; Status Cancel Acetaminophen (Tylenol) 650 mg PRN Q6HRS PRN PO MILD PAIN / TEMP > 100.3'F Last administered on 03/30/20at 04:28; Start 03/30/20 at 03:00 Ibuprofen (Motrin) 400 mg PRN Q6HRS PRN PO INFLAMMATION; Start 03/30/20 at 03:00 Info (PHARMACY MONITORING -- do not chart) 1 each PRN DAILY PRN MC SEE COMMENTS; Start 03/30/20 at 10:15 Info (PHARMACY MONITORING -- do not chart) 1 each PRN DAILY PRN MC SEE COMMENTS; Start 03/30/20 at 10:15; Status UNV Pantoprazole Sodium (Protonix) 40 mg DAILYAC PO Last administered on 03/31/20at 07:06; Start 03/31/20 at 07:30 Active Scripts Active Reported Eliquis (Apixaban) 5 Mg Tablet 10 Mg PO DAILY 7 Days Sarahy-Angelia Tablet (Folic Acid/Vitamin B Comp W-C) 0.8 Mg Tablet 1 Tab PO DAILY 30 Days Vitamin D2 (Ergocalciferol (Vitamin D2)) 1,250 Mcg Capsule 1,250 Mcg PO WEEKLY Donepezil Hcl 5 Mg Tablet 5 Mg PO QHS Ziprasidone Hcl 20 Mg Capsule 20 Mg PO HS Hydralazine Hcl 25 Mg Tablet 1 Tab PO BID Vitals/I & O Vital Sign - Last 24 Hours 03/30/20 03/30/20 03/30/20 03/30/20 11:45 12:15 12:34 12:54 Temp 97.4 97.6 97.6 97.6 97.4 97.6 97.6 97.6 Pulse 70 62 83 70 Resp 15 14 14 13 B/P (MAP) 108/43 117/37 126/48 124/49 03/30/20 03/30/20 03/30/20 03/30/20 13:15 13:42 15:00 19:40 Temp 97.3 98.2 97.7 98.1 97.3 98.2 97.7 98.1 Pulse 70 77 88 78 Resp 14 12 16 16 B/P (MAP) 117/44 138/56 149/46 (80) 124/76 (92) Pulse Ox 98 97 O2 Delivery Room Air Room Air 03/30/20 03/30/20 03/30/20 03/30/20 19:48 20:57 20:58 22:29 Temp 98.7 98.7 Pulse 78 78 77 Resp 16 B/P (MAP) 124/76 124/76 120/43 (68) Pulse Ox 95 O2 Delivery Room Air Room Air 03/31/20 03/31/20 03/31/20 03:25 07:00 07:39 Temp 98.3 97.7 98.3 97.7 Pulse 86 78 Resp 14 18 B/P (MAP) 119/40 (66) 119/46 (70) Pulse Ox 94 96 O2 Delivery Room Air Room Air Room Air Intake and Output 03/30/20 03/30/20 03/31/20 15:00 23:00 07:00 Intake Total 370 ml 200 ml Output Total 200 ml Balance 170 ml 200 ml Justicifation of Admission Dx: Justifications for Admission: Justification of Admission Dx: Yes CHF: Hemodynamic Instability RUSSELL ESCALERA MD Mar 31, 2020 08:36
[2020-03-31] MEDS: FOLIC/VIT B COMP W-C (RENAL) TABLET. PO SCH (08:38)
[2020-03-31] MEDS: hydrALAZINE 25 MG TABLET PO SCH ×2 (08:38→20:47)
[2020-03-31] MEDS: LOSARTAN POTASSIUM 25 MG TABLET. PO SCH ×2 (08:39→20:46)
[2020-03-31 10:40] VITALS: BP 111/29
--- NOTE | 2020-03-31 10:45 | PDOC ---
Date of Service: DATE: 03/31/20 TIME: 10:42 Subjective: Subjective: Asks how long she'll be here. "Oh, I'm anemic?" Denies bleeding and pain. Says eating okay. Objective: Objective: Nurse notes confusion, no obvious bleeding, Eliquis held, ?dialysis again today (her usual days are MWF). Vital Signs: Vital Signs Date Time Temp Pulse Resp B/P (MAP) Pulse Ox O2 Delivery O2 Flow Rate FiO2 03/31/20 10:40 98.1 67 18 111/29 (56) 96 Room Air 98.1 Labs: Laboratory Tests Test 03/30/20 15:30 03/30/20 16:28 03/30/20 20:45 03/31/20 06:30 Hemoglobin 8.4 g/dL 7.5 g/dL Hematocrit 24.3 % 22.5 % Mean Corpuscular Hemoglobin Concent 34 g/dL 34 g/dL Glucose (Fingerstick) 94 mg/dL 164 mg/dL White Blood Count 5.8 x10^3/uL Red Blood Count 2.62 x10^6/uL Mean Corpuscular Volume 86 fL Mean Corpuscular Hemoglobin 29 pg Red Cell Distribution Width 17.6 % Platelet Count 222 x10^3/uL Test 03/31/20 06:58 Glucose (Fingerstick) 100 mg/dL PE: GEN: NAD - in recliner LUNGS: CTAB HEART: RRR ABD: S/ND/NT NEURO/PSYCH: pleasantly confused A/P: Normocytic anemia - improved w/ transfusion, some drift after, no obvious bleeding CHF, ESRD on HD Recent LIJ DVT - Eliquis held -- Continue PPI, observe. Will review w/ Dr. Tom re: any endoscopy plans. Justicifation of Admission Dx: Justifications for Admission: Justification of Admission Dx: Yes CHF: Hemodynamic Instability DANYELL COLE Mar 31, 2020 10:45
--- NOTE | 2020-03-31 11:34 | NUR ---
SS following up with discharge planning. SS reviewed pt chart and discussed with pt RN. Pt is currently on room air. Pt's granddaughter is caregiver at home. Pt current with [facility], ; fax [phone]. Clinical updates phoned and faxed to [facility] and [facility], ; fax [phone]. Possible discharge to home today after dialysis. SS will continue to follow for discharge planning.
--- NOTE | 2020-03-31 12:37 | PDOC ---
DATE OF SERVICE DATE: 03/31/20 TIME: 12:33 SUBJECTIVE ROS sates feeling much better and wants to go home Asking why did she come back to the hospital OBJECTIVE Vital Signs Vital Signs Date Time Temp Pulse Resp B/P (MAP) Pulse Ox O2 Delivery O2 Flow Rate FiO2 03/31/20 10:40 98.1 67 18 111/29 (56) 96 Room Air 98.1 I & 0 Intake and Output 03/31/20 06:59 Intake Total 570 ml Output Total 200 ml Balance 370 ml Intake Oral 570 ml Output Urine Total 200 ml # Voids 1 PHYSICAL EXAM Physical Exam General Appearance: no apparent distress, sitting up in chair Skin: No rash Respiratory: decreased breath sounds at bases, Non labored Heart: S1S2 Abdomen: soft, bowel sounds present Genitourinary: No houser Extremities: No LE edema Neurology: Pleasantly confused, ? baseline dementia DIAGNOSIS/ASSESSMENT Assessment & Plan ESRD - On HD MWF Dialysis today per schedule, Discussed tx plan with Kaylin HyperKaemia- at presentation, Dialyzed Acute Anemia- Hgb 5.5 - s/p PRBC No obvious bleeding, GI following Recent admission for Left upper arm swelling- seen by vascular - AVG functioning for HD no evidence the graft is infected. 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 that has been removed no surgery needed per vascular Anticoagulation per primary Hypertension - Was Hypotensive , improved BP Anemia - ELISEO per protocol DM II DVT COMMENT/RELEVANT DATA Meds Current Medications Medications (Trade) Dose Ordered Sig/Diana Start Time Stop Time Status Last Admin Dose Admin Acetaminophen (Tylenol) 650 mg PRN Q6HRS PRN 03/30/20 03:00 03/30/20 04:28 650 MG Apixaban (Eliquis) 5 mg BID 04/03/20 09:00 Cancel Aspirin (Cherise Aspirin) 325 mg 1X ONCE 03/29/20 13:00 03/29/20 13:01 DC Donepezil HCl (Aricept) 5 mg QHS 03/29/20 21:00 03/30/20 20:57 5 MG Ergocalciferol (Vitamin D2) 50,000 unit WEEKLY 04/05/20 09:00 Hydralazine HCl (Apresoline) 25 mg BID 03/29/20 21:00 03/31/20 08:38 25 MG Ibuprofen (Motrin) 400 mg PRN Q6HRS PRN 03/30/20 03:00 Info (PHARMACY MONITORING -- do not chart) 1 each PRN DAILY PRN 03/30/20 10:15 UNV Losartan Potassium (Cozaar) 25 mg BID 03/29/20 21:00 03/31/20 08:39 25 MG Morphine Sulfate (Morphine Sulfate) 2 mg PRN Q2HR PRN 03/29/20 15:30 03/30/20 15:29 DC Nitroglycerin (Nitrostat) 0.4 mg PRN Q5MIN PRN 03/29/20 15:30 03/30/20 15:29 DC Ondansetron HCl (Zofran) 4 mg PRN Q8HRS PRN 03/29/20 15:30 03/30/20 15:29 DC Pantoprazole Sodium (Protonix) 40 mg DAILYAC 03/31/20 07:30 03/31/20 07:06 40 MG Vitamin B Complex/ Vitamin C (Sarahy-Angelia) 1 tab DAILY 03/30/20 09:00 03/31/20 08:38 1 TAB Ziprasidone (Geodon) 20 mg HS 03/29/20 21:00 03/30/20 20:57 20 MG Lab Laboratory Tests Test 03/30/20 15:30 03/30/20 16:28 03/30/20 20:45 03/31/20 06:30 Hemoglobin 8.4 g/dL (12.0-15.5) 7.5 g/dL (12.0-15.5) Hematocrit 24.3 % (36.0-47.0) 22.5 % (36.0-47.0) Mean Corpuscular Hemoglobin Concent 34 g/dL (31-37) 34 g/dL (31-37) Glucose (Fingerstick) 94 mg/dL (70-99) 164 mg/dL (70-99) White Blood Count 5.8 x10^3/uL (4.0-11.0) Red Blood Count 2.62 x10^6/uL (3.50-5.40) Mean Corpuscular Volume 86 fL (79-100) Mean Corpuscular Hemoglobin 29 pg (25-35) Red Cell Distribution Width 17.6 % (11.5-14.5) Platelet Count 222 x10^3/uL (140-400) Test 03/31/20 06:58 03/31/20 10:57 Glucose (Fingerstick) 100 mg/dL (70-99) 107 mg/dL (70-99) Results All relevant outside records, renal labs, imaging studies, telemetry/EKG's were reviewed. Justicifation of Admission Dx: Justifications for Admission: Justification of Admission Dx: Yes CHF: Hemodynamic Instability SALVADOR KOWASLKI MD Mar 31, 2020 12:37
[2020-03-31] MEDS ORDERED: ALBUMIN HUMAN 25% 200 ML IV PRN (13:00)
[2020-03-31] MEDS ORDERED: IV NORMAL SALINE 1000ML BAG 1,000 ML IV PRN ×2 (13:00)
[2020-03-31] MEDS ORDERED: LIDOCAINE 1% PF 2 ML VIAL. ONE ×2 (13:57→14:00)
[2020-03-31] MEDS ORDERED: DIALYSIS PATIENT. MC PRN ×2 (15:30)
[2020-03-31] MEDS: ACETAMINOPHEN 325 MG TABLET. PO PRN (17:14)
[2020-03-31 19:53] VITALS: BP 140/53
[2020-03-31] MEDS: DONEPEZIL HCL 5 MG TABLET. PO SCH (20:46)
[2020-03-31] MEDS: IBUPROFEN 400 MG TABLET. PO PRN (20:46)
[2020-03-31] MEDS: ZIPRASIDONE 20 MG CAPSULE PO SCH (20:46)
[2020-03-31 23:04] VITALS: BP 112/62
[2020-04-01] VITALS (7 sets, daily range): BP systolic 111–127; BP diastolic 32–43
[2020-04-01] MEDS: PANTOPRAZOLE 40 MG TABLET.DR. PO SCH (06:41)
--- NOTE | 2020-04-01 07:13 | RAD ---
EXAM: Left upper extremity venous Doppler. HISTORY: Follow-up left internal jugular vein thrombosis. COMPARISON: 03/22/2020 FINDINGS: Grayscale and Doppler analysis of the left upper extremity deep venous system was performed with graded compression and augmentation. The internal jugular, subclavian, axillary, brachial, basilic, and cephalic veins were assessed. Nonocclusive thrombus within the left internal jugular vein appears to have partially resolved since the prior examination. The left subclavian vein is patent. The left upper arm graft is patent proximally and distally, but is partially obscured by bandaging in its midportion. A band in the fistula within the lower arm is occluded. The brachial, basilic and cephalic veins are patent. The radial and ulnar veins were not imaged currently. IMPRESSION: 1. Nonocclusive thrombus within the left internal jugular vein appears to have partially resolved since 03/22/2020. Electronically signed by: Moon Alvarez MD (04/01/2020 7:10 AM) [id number]
[2020-04-01] MEDS: FOLIC/VIT B COMP W-C (RENAL) TABLET. PO SCH (07:55)
[2020-04-01] MEDS: LOSARTAN POTASSIUM 25 MG TABLET. PO SCH ×2 (07:56→20:43)
[2020-04-01] MEDS: hydrALAZINE 25 MG TABLET PO SCH ×2 (07:57→20:44)
[2020-04-01 11:14] LABS: HEMATOCRIT 21.1 % (36.0-47.0); HEMOGLOBIN 7.1 g/dL (12.0-15.5)
--- NOTE | 2020-04-01 12:24 | PDOC ---
PROGRESS NOTES Date of Service: DATE: 04/01/20 TIME: 12:22 Chief Complaint Chief Complaint ASSESSMENT/PLAN 1. Chest pain, atypical; Recent LHC revealed no significant CAD. Most likely costochondritis HEART CATH FINDINGS 1. Hemodynamics: Left ventricular end-diastolic pressure of 21 mmHg. No pullback gradient across the aortic valve. 2. Left ventriculography: Hyperdynamic left ventricle systolic function with ejection fraction estimated at 80%. No significant mitral regurgitation seen. 3. Coronary angiography: a. The left main coronary artery arose from the left sinus of Valsalva, gave rise to the left anterior descending and left circumflex arteries and did not show any significant stenosis. b. The left anterior descending artery did not show any significant stenosis. c. The left circumflex artery did not show any significant stenosis. d. The right coronary artery was a dominant vessel arising from the right sinus of Valsalva that did not show any significant stenosis. Conclusion 1. No significant coronary disease 2. Hyperdynamic left ventricle systolic function with ejection fraction estimated at 80%. Recommendations Patient's non-STEMI is most probably type II/demand ischemia. Continue medical management. DATE: 03/06/20 1120 Hyperkalemia Internal lJugular thrombosis, on anticoagulation with Eliquis currently on hold and repeat ultrasound reveals a nonocclusive thrombus that is partially dissolved, this most likely was a consequence of the previously central venous catheter placement and now that this has been discontinued probably not playing an important role in no clinical evidence of instability Acute on chronic diastolic CHF: cath showed EF hyperdynamic at 80%. appears compensated Essential Hypertension DM2 ESRD on HD nstemi type II, demand ischemia Type 2. secondary to profound anemia iron deficiency anemia Severe malnutrition Plan: hold eliquis consult GI no evidence of bleeding will provide iron supplementation folow recs from nephrology transfuse 2 units of PRBC today, this will be the fourth unit during this hospital stay recheck h and h in the am follow recommendations from cardiology as follows Recommendations Trend troponin Echo to assess LV systolic function Fluid offloading via HD Continue to hold Eliquis in light of her H&H and the need for transfusion History of Present Illness History of Present Illness In no acute distress, no chest pain or palpitations, sduaghter at bedside, plan of care discussed in detail. Vitals Vitals Vital Signs Date Time Temp Pulse Resp B/P (MAP) Pulse Ox O2 Delivery O2 Flow Rate FiO2 04/01/20 10:08 97.6 75 16 120/37 (64) 96 Room Air 97.6 Physical Exam General: Alert, Oriented X3, Cooperative, No acute distress Heart: Regular rate Lungs: Clear Abdomen: Normal bowel sounds, Soft, No tenderness, No hepatosplenomegaly, No masses Extremities: Other ( LUE with a new dialysis fistula no signs of infection) Skin: No rashes, No breakdown, No significant lesion Labs LABS Laboratory Tests Test 03/31/20 20:45 04/01/20 07:13 04/01/20 10:50 04/01/20 11:17 Glucose (Fingerstick) 159 mg/dL (70-99) 100 mg/dL (70-99) 138 mg/dL (70-99) Hemoglobin 7.1 g/dL (12.0-15.5) Hematocrit 21.1 % (36.0-47.0) Assessment and Plan Assessmemt and Plan Problems Medical Problems: (1) Chest pain Status: Acute Comment Review of Relevant I have reviewed the following items rose (where applicable) has been applied. Labs Laboratory Tests Test 03/30/20 15:30 03/30/20 16:28 03/30/20 20:45 03/31/20 06:30 Hemoglobin 8.4 g/dL (12.0-15.5) 7.5 g/dL (12.0-15.5) Hematocrit 24.3 % (36.0-47.0) 22.5 % (36.0-47.0) Mean Corpuscular Hemoglobin Concent 34 g/dL (31-37) 34 g/dL (31-37) Glucose (Fingerstick) 94 mg/dL (70-99) 164 mg/dL (70-99) White Blood Count 5.8 x10^3/uL (4.0-11.0) Red Blood Count 2.62 x10^6/uL (3.50-5.40) Mean Corpuscular Volume 86 fL (79-100) Mean Corpuscular Hemoglobin 29 pg (25-35) Red Cell Distribution Width 17.6 % (11.5-14.5) Platelet Count 222 x10^3/uL (140-400) Test 03/31/20 06:58 03/31/20 10:57 03/31/20 20:45 04/01/20 07:13 Glucose (Fingerstick) 100 mg/dL (70-99) 107 mg/dL (70-99) 159 mg/dL (70-99) 100 mg/dL (70-99) Test 04/01/20 10:50 04/01/20 11:17 Hemoglobin 7.1 g/dL (12.0-15.5) Hematocrit 21.1 % (36.0-47.0) Glucose (Fingerstick) 138 mg/dL (70-99) Laboratory Tests Test 03/31/20 20:45 04/01/20 07:13 04/01/20 10:50 04/01/20 11:17 Glucose (Fingerstick) 159 mg/dL (70-99) 100 mg/dL (70-99) 138 mg/dL (70-99) Hemoglobin 7.1 g/dL (12.0-15.5) Hematocrit 21.1 % (36.0-47.0) Medications Current Medications Aspirin ([employer] Aspirin) 325 mg 1X ONCE PO ; Start 03/29/20 at 13:00; Stop 03/29 at 13:01; Status DC Nitroglycerin (Nitrostat) 0.4 mg PRN Q5MIN PRN SL CP RATING > 1/10; Start 03/29/20 at 13:00; Stop 03/30/20 at 12:59; Status Cancel Morphine Sulfate (Morphine Sulfate) 4 mg PRN Q15MIN PRN IV/SQ PAIN GREATER THAN 3/10; Start 03/29/20 at 13:00; Stop 03/29/20 at 17:24; Status DC Ondansetron HCl (Zofran) 4 mg PRN Q8HRS PRN IV NAUSEA/VOMITING; Start 03/29/20 at 15:30; Stop 03/30/20 at 15:29; Status DC Morphine Sulfate (Morphine Sulfate) 2 mg PRN Q2HR PRN IV PAIN; Start 03/29/20 at 15:30; Stop 03/30/20 at 15:29; Status DC Nitroglycerin (Nitrostat) 0.4 mg PRN Q5MIN PRN SL CHEST PAIN; Start 03/29/20 at 15:30; Stop 03/30/20 at 15:29; Status DC Apixaban (Eliquis) 10 mg BID PO Last administered on 03/29/20at 20:53; Start 03/29/20 at 21:00; Stop 03/30/20 at 15:45; Status DC Donepezil HCl (Aricept) 5 mg QHS PO Last administered on 03/31/20at 20:46; Start 03/29/20 at 21:00 Ergocalciferol (Vitamin D2) 50,000 unit WEEKLY PO ; Start 04/05/20 at 09:00 Vitamin B Complex/ Vitamin C (Sarahy-Angelia) 1 tab DAILY PO Last administered on 04/01/20at 07:55; Start 03/30/20 at 09:00 Hydralazine HCl (Apresoline) 25 mg BID PO Last administered on 04/01/20at 07:57; Start 03/29/20 at 21:00 Losartan Potassium (Cozaar) 25 mg BID PO Last administered on 04/01/20at 07:56; Start 03/29/20 at 21:00 Ziprasidone (Geodon) 20 mg HS PO Last administered on 03/31/20at 20:46; Start 03/29/20 at 21:00 Apixaban (Eliquis) 5 mg BID PO ; Start 04/03/20 at 09:00; Status Cancel Acetaminophen (Tylenol) 650 mg PRN Q6HRS PRN PO MILD PAIN / TEMP > 100.3'F Last administered on 03/31/20at 17:14; Start 03/30/20 at 03:00 Ibuprofen (Motrin) 400 mg PRN Q6HRS PRN PO INFLAMMATION Last administered on 03/31/20at 20:46; Start 03/30/20 at 03:00 Info (PHARMACY MONITORING -- do not chart) 1 each PRN DAILY PRN MC SEE COMMENTS; Start 03/30/20 at 10:15 Info (PHARMACY MONITORING -- do not chart) 1 each PRN DAILY PRN MC SEE COMME NTS; Start 03/30/20 at 10:15; Status UNV Pantoprazole Sodium (Protonix) 40 mg DAILYAC PO Last administered on 04/01/20at 06:41; Start 03/31/20 at 07:30 Lidocaine HCl (Xylocaine-Mpf 1% 2ml Vial) 2 ml STK-MED ONCE .ROUTE ; Start 03/31/20 at 13:57; Stop 03/31/20 at 13:57; Status DC Sodium Chloride 1,000 ml @ 1,000 mls/hr Q1H PRN IV hypotension; Start 03/31/20 at 13:00; Stop 03/31/20 at 18:59; Status DC Albumin Human 200 ml @ 200 mls/hr 1X PRN PRN IV Hypotension; Start 03/31/20 at 13:00; Stop 03/31/20 at 18:59; Status DC Sodium Chloride 1,000 ml @ 400 mls/hr Q2H30M PRN IV PATENCY; Start 03/31/20 at 13:00; Stop 04/01/20 at 00:59; Status DC Info (PHARMACY MONITORING -- do not chart) 1 each PRN DAILY PRN MC SEE COMMENTS; Start 03/31/20 at 15:30; Status UNV Info (PHARMACY MONITORING -- do not chart) 1 each PRN DAILY PRN MC SEE COMMENTS; Start 03/31/20 at 15:30 Active Scripts Active Reported Eliquis (Apixaban) 5 Mg Tablet 10 Mg PO DAILY 7 Days Sarahy-Angelia Tablet (Folic Acid/Vitamin B Comp W-C) 0.8 Mg Tablet 1 Tab PO DAILY 30 Days Vitamin D2 (Ergocalciferol (Vitamin D2)) 1,250 Mcg Capsule 1,250 Mcg PO WEEKLY Donepezil Hcl 5 Mg Tablet 5 Mg PO QHS Ziprasidone Hcl 20 Mg Capsule 20 Mg PO HS Hydralazine Hcl 25 Mg Tablet 1 Tab PO BID Vitals/I & O Vital Sign - Last 24 Hours 03/31/20 03/31/20 03/31/20 03/31/20 19:53 19:55 20:46 20:47 Temp 98.6 98.6 Pulse 102 102 102 Resp 18 B/P (MAP) 140/53 (82) 140/53 140/53 Pulse Ox 95 O2 Delivery Room Air Room Air 03/31/20 04/01/20 04/01/20 04/01/20 23:04 03:26 07:38 07:56 Temp 98.8 98.2 97.9 98.8 98.2 97.9 Pulse 85 64 54 60 Resp 16 16 16 B/P (MAP) 112/62 (79) 117/32 (60) 111/35 (60) 111/35 Pulse Ox 94 97 95 O2 Delivery Room Air Room Air Room Air 04/01/20 04/01/20 04/01/20 07:57 08:00 10:08 Temp 97.6 97.6 Pulse 60 75 Resp 16 B/P (MAP) 111/35 120/37 (64) Pulse Ox 96 O2 Delivery Room Air Room Air Intake and Output 03/31/20 03/31/20 04/01/20 15:00 23:00 07:00 Intake Total 120 ml Output Total 150 ml 25 ml Balance -30 ml -25 ml Justicifation of Admission Dx: Justifications for Admission: Justification of Admission Dx: Yes CHF: Hemodynamic Instability RUSSELL ESCALERA MD Apr 01, 2020 12:24
[2020-04-01] MEDS ORDERED: ACETAMINOPHEN 325 MG TABLET. PO PRN (12:30)
[2020-04-01] MEDS ORDERED: diphenhydrAMINE ORAL ELIXIR 12.5 MG/5 ML ML PO PRN (12:30)
--- NOTE | 2020-04-01 13:03 | PDOC ---
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 baseline dementia DIAGNOSIS/ASSESSMENT Assessment & Plan ESRD - On HD MWF No indication for HD today HyperKaemia- at presentation Acute Anemia- Hgb 5.5 - s/p PRBC No obvious bleeding per GI , Hgb 7.1 Recent admission for Left upper arm swelling- seen by vascular - AVG functioning for HD no evidence the graft is infected. 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 that has been removed no surgery needed per vascular Anticoagulation per primary Hypertension - Was Hypotensive , improved BP Anemia - ELISEO per protocol DM II DVT COMMENT/RELEVANT DATA Meds Current Medications Medications (Trade) Dose Ordered Sig/Diana Start Time Stop Time Status Last Admin Dose Admin Acetaminophen (Tylenol) 650 mg 1X PRN PRN 04/01/20 12:30 Albumin Human 200 ml @ 200 mls/hr 1X PRN PRN 03/31/20 13:00 03/31/20 18:59 DC Apixaban (Eliquis) 5 mg BID 04/03/20 09:00 Cancel Aspirin (Cherise Aspirin) 325 mg 1X ONCE 03/29/20 13:00 03/29/20 13:01 DC Diphenhydramine HCl (Benadryl Oral Elixir) 12.5 mg 1X PRN PRN 04/01/20 12:30 Donepezil HCl (Aricept) 5 mg QHS 03/29/20 21:00 03/31/20 20:46 5 MG Ergocalciferol (Vitamin D2) 50,000 unit WEEKLY 04/05/20 09:00 Hydralazine HCl (Apresoline) 25 mg BID 03/29/20 21:00 04/01/20 07:57 25 MG Ibuprofen (Motrin) 400 mg PRN Q6HRS PRN 03/30/20 03:00 03/31/20 20:46 400 MG Info (PHARMACY MONITORING -- do not chart) 1 each PRN DAILY PRN 03/31/20 15:30 Cancel Lidocaine HCl (Xylocaine-Mpf 1% 2ml Vial) 2 ml STK-MED ONCE 03/31/20 13:57 03/31/20 13:57 DC Losartan Potassium (Cozaar) 25 mg BID 03/29/20 21:00 04/01/20 07:56 25 MG Morphine Sulfate (Morphine Sulfate) 2 mg PRN Q2HR PRN 03/29/20 15:30 03/30/20 15:29 DC Nitroglycerin (Nitrostat) 0.4 mg PRN Q5MIN PRN 03/29/20 15:30 03/30/20 15:29 DC Ondansetron HCl (Zofran) 4 mg PRN Q8HRS PRN 03/29/20 15:30 03/30/20 15:29 DC Pantoprazole Sodium (Protonix) 40 mg DAILYAC 03/31/20 07:30 04/01/20 06:41 40 MG Sodium Chloride 1,000 ml @ 400 mls/hr Q2H30M PRN 03/31/20 13:00 04/01/20 00:59 DC Vitamin B Complex/ Vitamin C (Sarahy-Angelia) 1 tab DAILY 03/30/20 09:00 04/01/20 07:55 1 TAB Ziprasidone (Geodon) 20 mg HS 03/29/20 21:00 03/31/20 20:46 20 MG Lab Laboratory Tests Test 03/31/20 20:45 04/01/20 07:13 04/01/20 10:50 04/01/20 11:17 Glucose (Fingerstick) 159 mg/dL (70-99) 100 mg/dL (70-99) 138 mg/dL (70-99) Hemoglobin 7.1 g/dL (12.0-15.5) Hematocrit 21.1 % (36.0-47.0) Results All relevant outside records, renal labs, imaging studies, telemetry/EKG's were reviewed. Justicifation of Admission Dx: Justifications for Admission: Justification of Admission Dx: Yes CHF: Hemodynamic Instability SALVADOR KOWALSKI MD Apr 01, 2020 13:03
[2020-04-01] MEDS: ACETAMINOPHEN 325 MG TABLET. PO PRN (15:17)
--- NOTE | 2020-04-01 20:05 | NUR ---
Pt i n bed assessment completed vss poc explained, pt reoriented to surroundings and call light placed in reach pt bed alarm set will resume care and continue to monitor pt.
[2020-04-01] MEDS: DONEPEZIL HCL 5 MG TABLET. PO SCH (20:43)
[2020-04-01] MEDS: ZIPRASIDONE 20 MG CAPSULE PO SCH (20:44)
[2020-04-02 03:15] VITALS: BP 124/39
[2020-04-02 05:32] LABS: BASO % 1 % (0-3); EOS % 1 % (0-3); HEMATOCRIT 23.7 % (36.0-47.0); LYMPH # 0.8 x10^3/uL (1.0-4.8); LYMPH % 16 % (24-48); MEAN CORPUSCULAR HEMOGLOBIN 30 pg (25-35); MEAN CORPUSCULAR HGB CONC 34 g/dL (31-37); MEAN CORPUSCULAR VOLUME 88 fL (79-100); MONO # 0.7 x10^3/uL (0.0-1.1); MONO % 13 % (0-9); NEUT # 3.8 x10^3/uL (1.8-7.7); NEUT % 70 % (31-73); PLATELET COUNT 205 x10^3/uL (140-400); RED BLOOD COUNT 2.69 x10^6/uL (3.50-5.40); RED CELL DISTRIBUTION WIDTH 16.8 % (11.5-14.5); WHITE BLOOD COUNT 5.4 x10^3/uL (4.0-11.0)
[2020-04-02] MEDS: PANTOPRAZOLE 40 MG TABLET.DR. PO SCH (06:23)
[2020-04-02 07:00] VITALS: BP 137/51
[2020-04-02] MEDS: FOLIC/VIT B COMP W-C (RENAL) TABLET. PO SCH (08:57)
[2020-04-02] MEDS: hydrALAZINE 25 MG TABLET PO SCH ×2 (08:57→21:33)
[2020-04-02] MEDS: LOSARTAN POTASSIUM 25 MG TABLET. PO SCH ×2 (08:57→21:31)
[2020-04-02 10:41] VITALS: BP 127/40
--- NOTE | 2020-04-02 11:56 | PDOC ---
DATE OF SERVICE DATE: 04/02/20 TIME: 11:56 SUBJECTIVE ROS No complaints, wants to go home Eating lunch OBJECTIVE Vital Signs Vital Signs Date Time Temp Pulse Resp B/P (MAP) Pulse Ox O2 Delivery O2 Flow Rate FiO2 04/02/20 10:41 98.0 78 18 127/40 (69) 98 Room Air 98.0 I & 0 Intake and Output 04/02/20 07:00 Intake Total 1160 ml Output Total 150 ml Balance 1010 ml Intake Oral 660 ml Blood Product IV Normal Saline Flush 500 ml Output Urine Total 150 ml # Voids 1 # Bowel Movements 1 PHYSICAL EXAM Physical Exam General Appearance: no apparent distress, Skin: No rash Respiratory: decreased breath sounds at bases, Non labored Heart: S1S2 Abdomen: soft, bowel sounds present Genitourinary: No houser Extremities: No LE edema Neurology: Pleasantly confused, ? baseline dementia DIAGNOSIS/ASSESSMENT Assessment & Plan ESRD - On HD MWF No indication for HD today HyperKalemia- at presentation Acute Anemia- Hgb 5.5 at presentation - s/p PRBC No obvious bleeding per GI , Required PRBC x2 on 04/01 Recent admission for Left upper arm swelling- seen by vascular - AVG functioning for HD no evidence the graft is infected. 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 that has been removed no surgery needed per vascular Anticoagulation per primary Hypertension - Was Hypotensive , improved BP Anemia - ELISEO per protocol DM II DVT COMMENT/RELEVANT DATA Meds Current Medications Medications (Trade) Dose Ordered Sig/Diana Start Time Stop Time Status Last Admin Dose Admin Acetaminophen (Tylenol) 650 mg 1X PRN PRN 04/01/20 12:30 Albumin Human 200 ml @ 200 mls/hr 1X PRN PRN 03/31/20 13:00 03/31/20 18:59 DC Apixaban (Eliquis) 5 mg BID 04/03/20 09:00 Cancel Aspirin (Cherise Aspirin) 325 mg 1X ONCE 03/29/20 13:00 03/29/20 13:01 DC Diphenhydramine HCl (Benadryl Oral Elixir) 12.5 mg 1X PRN PRN 04/01/20 12:30 04/01/20 15:18 DC 04/01/20 15:16 12.5 MG Donepezil HCl (Aricept) 5 mg QHS 03/29/20 21:00 04/01/20 20:43 5 MG Ergocalciferol (Vitamin D2) 50,000 unit WEEKLY 04/05/20 09:00 Hydralazine HCl (Apresoline) 25 mg BID 03/29/20 21:00 04/02/20 08:57 25 MG Ibuprofen (Motrin) 400 mg PRN Q6HRS PRN 03/30/20 03:00 03/31/20 20:46 400 MG Info (PHARMACY MONITORING -- do not chart) 1 each PRN DAILY PRN 03/31/20 15:30 Cancel Lidocaine HCl (Xylocaine-Mpf 1% 2ml Vial) 2 ml STK-MED ONCE 03/31/20 13:57 03/31/20 13:57 DC Losartan Potassium (Cozaar) 25 mg BID 03/29/20 21:00 04/02/20 08:57 25 MG Morphine Sulfate (Morphine Sulfate) 2 mg PRN Q2HR PRN 03/29/20 15:30 03/30/20 15:29 DC Nitroglycerin (Nitrostat) 0.4 mg PRN Q5MIN PRN 03/29/20 15:30 03/30/20 15:29 DC Ondansetron HCl (Zofran) 4 mg PRN Q8HRS PRN 03/29/20 15:30 03/30/20 15:29 DC Pantoprazole Sodium (Protonix) 40 mg DAILYAC 03/31/20 07:30 04/02/20 06:23 40 MG Sodium Chloride 1,000 ml @ 400 mls/hr Q2H30M PRN 03/31/20 13:00 04/01/20 00:59 DC Vitamin B Complex/ Vitamin C (Sarahy-Angelia) 1 tab DAILY 03/30/20 09:00 04/02/20 08:57 1 TAB Ziprasidone (Geodon) 20 mg HS 03/29/20 21:00 04/01/20 20:44 20 MG Lab Laboratory Tests Test 04/01/20 16:06 04/01/20 20:42 04/02/20 04:50 04/02/20 06:58 Glucose (Fingerstick) 142 mg/dL (70-99) 156 mg/dL (70-99) 100 mg/dL (70-99) White Blood Count 5.4 x10^3/uL (4.0-11.0) Red Blood Count 2.69 x10^6/uL (3.50-5.40) Hemoglobin 8.0 g/dL (12.0-15.5) Hematocrit 23.7 % (36.0-47.0) Mean Corpuscular Volume 88 fL (79-100) Mean Corpuscular Hemoglobin 30 pg (25-35) Mean Corpuscular Hemoglobin Concent 34 g/dL (31-37) Red Cell Distribution Width 16.8 % (11.5-14.5) Platelet Count 205 x10^3/uL (140-400) Neutrophils (%) (Auto) 70 % (31-73) Lymphocytes (%) (Auto) 16 % (24-48) Monocytes (%) (Auto) 13 % (0-9) Eosinophils (%) (Auto) 1 % (0-3) Basophils (%) (Auto) 1 % (0-3) Neutrophils # (Auto) 3.8 x10^3/uL (1.8-7.7) Lymphocytes # (Auto) 0.8 x10^3/uL (1.0-4.8) Monocytes # (Auto) 0.7 x10^3/uL (0.0-1.1) Eosinophils # (Auto) 0.0 x10^3/uL (0.0-0.7) Basophils # (Auto) 0.0 x10^3/uL (0.0-0.2) Test 04/02/20 11:19 Glucose (Fingerstick) 141 mg/dL (70-99) Results All relevant outside records, renal labs, imaging studies, telemetry/EKG's were reviewed. Justicifation of Admission Dx: Justifications for Admission: Justification of Admission Dx: Yes CHF: Hemodynamic Instability SALVADOR KOWALSKI MD Apr 02, 2020 11:56
[2020-04-02 14:40] VITALS: BP 152/52
--- NOTE | 2020-04-02 16:26 | PDOC ---
PROGRESS NOTES Date of Service: DATE: 04/02/20 TIME: 16:24 Chief Complaint Chief Complaint ASSESSMENT/PLAN 1. Chest pain, atypical; Recent LHC revealed no significant CAD. Most likely costochondritis HEART CATH FINDINGS 1. Hemodynamics: Left ventricular end-diastolic pressure of 21 mmHg. No pullback gradient across the aortic valve. 2. Left ventriculography: Hyperdynamic left ventricle systolic function with ejection fraction estimated at 80%. No significant mitral regurgitation seen. 3. Coronary angiography: a. The left main coronary artery arose from the left sinus of Valsalva, gave rise to the left anterior descending and left circumflex arteries and did not show any significant stenosis. b. The left anterior descending artery did not show any significant stenosis. c. The left circumflex artery did not show any significant stenosis. d. The right coronary artery was a dominant vessel arising from the right sinus of Valsalva that did not show any significant stenosis. Conclusion 1. No significant coronary disease 2. Hyperdynamic left ventricle systolic function with ejection fraction estimated at 80%. Recommendations Patient's non-STEMI is most probably type II/demand ischemia. Continue medical management. DATE: 03/06/20 1120 Hyperkalemia Internal lJugular thrombosis, on anticoagulation with Eliquis currently on hold and repeat ultrasound reveals a nonocclusive thrombus that is partially dissolved, this most likely was a consequence of the previously central venous catheter placement and now that this has been discontinued probably not playing an important role in no clinical evidence of instability Acute on chronic diastolic CHF: cath showed EF hyperdynamic at 80%. appears compensated Essential Hypertension DM2 ESRD on HD nstemi type II, demand ischemia Type 2. secondary to profound anemia iron deficiency anemia Severe malnutrition Plan: hold eliquis consult GI no evidence of bleeding will provide iron supplementation folow recs from nephrology transfuse 2 units of PRBC today, this will be the fourth unit during this hospital stay recheck h and h in the am follow recommendations from cardiology as follows Recommendations Trend troponin Echo to assess LV systolic function Fluid offloading via HD Continue to hold Eliquis in light of her H&H and the need for transfusion, despite 2 units her h and h is only 8. History of Present Illness History of Present Illness In no acute distress, no chest pain or palpitations, sduaghter at bedside, plan of care discussed in detail. Vitals Vitals Vital Signs Date Time Temp Pulse Resp B/P (MAP) Pulse Ox O2 Delivery O2 Flow Rate FiO2 04/02/20 14:40 97.8 79 18 152/52 (85) 98 Room Air 97.8 Physical Exam General: Alert, Oriented X3, Cooperative, No acute distress Heart: Regular rate Lungs: Clear Abdomen: Normal bowel sounds, Soft, No tenderness, No hepatosplenomegaly, No masses Extremities: Other ( LUE with a new dialysis fistula no signs of infection) Skin: No rashes, No breakdown, No significant lesion Labs LABS Laboratory Tests Test 04/01/20 20:42 04/02/20 04:50 04/02/20 06:58 04/02/20 11:19 Glucose (Fingerstick) 156 mg/dL (70-99) 100 mg/dL (70-99) 141 mg/dL (70-99) White Blood Count 5.4 x10^3/uL (4.0-11.0) Red Blood Count 2.69 x10^6/uL (3.50-5.40) Hemoglobin 8.0 g/dL (12.0-15.5) Hematocrit 23.7 % (36.0-47.0) Mean Corpuscular Volume 88 fL (79-100) Mean Corpuscular Hemoglobin 30 pg (25-35) Mean Corpuscular Hemoglobin Concent 34 g/dL (31-37) Red Cell Distribution Width 16.8 % (11.5-14.5) Platelet Count 205 x10^3/uL (140-400) Neutrophils (%) (Auto) 70 % (31-73) Lymphocytes (%) (Auto) 16 % (24-48) Monocytes (%) (Auto) 13 % (0-9) Eosinophils (%) (Auto) 1 % (0-3) Basophils (%) (Auto) 1 % (0-3) Neutrophils # (Auto) 3.8 x10^3/uL (1.8-7.7) Lymphocytes # (Auto) 0.8 x10^3/uL (1.0-4.8) Monocytes # (Auto) 0.7 x10^3/uL (0.0-1.1) Eosinophils # (Auto) 0.0 x10^3/uL (0.0-0.7) Basophils # (Auto) 0.0 x10^3/uL (0.0-0.2) Review of Systems Review of Systems Unreliable given her dementia Assessment and Plan Assessmemt and Plan Problems Medical Problems: (1) Chest pain Status: Acute Comment Review of Relevant I have reviewed the following items rose (where applicable) has been applied. Labs Laboratory Tests Test 03/31/20 20:45 04/01/20 07:13 04/01/20 10:50 04/01/20 11:17 Glucose (Fingerstick) 159 mg/dL (70-99) 100 mg/dL (70-99) 138 mg/dL (70-99) Hemoglobin 7.1 g/dL (12.0-15.5) Hematocrit 21.1 % (36.0-47.0) Test 04/01/20 16:06 04/01/20 20:42 04/02/20 04:50 04/02/20 06:58 Glucose (Fingerstick) 142 mg/dL (70-99) 156 mg/dL (70-99) 100 mg/dL (70-99) White Blood Count 5.4 x10^3/uL (4.0-11.0) Red Blood Count 2.69 x10^6/uL (3.50-5.40) Hemoglobin 8.0 g/dL (12.0-15.5) Hematocrit 23.7 % (36.0-47.0) Mean Corpuscular Volume 88 fL (79-100) Mean Corpuscular Hemoglobin 30 pg (25-35) Mean Corpuscular Hemoglobin Concent 34 g/dL (31-37) Red Cell Distribution Width 16.8 % (11.5-14.5) Platelet Count 205 x10^3/uL (140-400) Neutrophils (%) (Auto) 70 % (31-73) Lymphocytes (%) (Auto) 16 % (24-48) Monocytes (%) (Auto) 13 % (0-9) Eosinophils (%) (Auto) 1 % (0-3) Basophils (%) (Auto) 1 % (0-3) Neutrophils # (Auto) 3.8 x10^3/uL (1.8-7.7) Lymphocytes # (Auto) 0.8 x10^3/uL (1.0-4.8) Monocytes # (Auto) 0.7 x10^3/uL (0.0-1.1) Eosinophils # (Auto) 0.0 x10^3/uL (0.0-0.7) Basophils # (Auto) 0.0 x10^3/uL (0.0-0.2) Test 04/02/20 11:19 Glucose (Fingerstick) 141 mg/dL (70-99) Laboratory Tests Test 04/01/20 20:42 04/02/20 04:50 04/02/20 06:58 04/02/20 11:19 Glucose (Fingerstick) 156 mg/dL (70-99) 100 mg/dL (70-99) 141 mg/dL (70-99) White Blood Count 5.4 x10^3/uL (4.0-11.0) Red Blood Count 2.69 x10^6/uL (3.50-5.40) Hemoglobin 8.0 g/dL (12.0-15.5) Hematocrit 23.7 % (36.0-47.0) Mean Corpuscular Volume 88 fL (79-100) Mean Corpuscular Hemoglobin 30 pg (25-35) Mean Corpuscular Hemoglobin Concent 34 g/dL (31-37) Red Cell Distribution Width 16.8 % (11.5-14.5) Platelet Count 205 x10^3/uL (140-400) Neutrophils (%) (Auto) 70 % (31-73) Lymphocytes (%) (Auto) 16 % (24-48) Monocytes (%) (Auto) 13 % (0-9) Eosinophils (%) (Auto) 1 % (0-3) Basophils (%) (Auto) 1 % (0-3) Neutrophils # (Auto) 3.8 x10^3/uL (1.8-7.7) Lymphocytes # (Auto) 0.8 x10^3/uL (1.0-4.8) Monocytes # (Auto) 0.7 x10^3/uL (0.0-1.1) Eosinophils # (Auto) 0.0 x10^3/uL (0.0-0.7) Basophils # (Auto) 0.0 x10^3/uL (0.0-0.2) Medications Current Medications Aspirin (Cherise Aspirin) 325 mg 1X ONCE PO ; Start 03/29/20 at 13:00; Stop 03/29/20 at 13:01; Status DC Nitroglycerin (Nitrostat) 0.4 mg PRN Q5MIN PRN SL CP RATING > 1/10; Start 03/29/20 at 13:00; Stop 03/30/20 at 12:59; Status Cancel Morphine Sulfate (Morphine Sulfate) 4 mg PRN Q15MIN PRN IV/SQ PAIN GREATER THAN 3/10; Start 03/29/20 at 13:00; Stop 03/29/20 at 17:24; Status DC Ondansetron HCl (Zofran) 4 mg PRN Q8HRS PRN IV NAUSEA/VOMITING; Start 03/29/20 at 15:30; Stop 03/30/20 at 15:29; Status DC Morphine Sulfate (Morphine Sulfate) 2 mg PRN Q2HR PRN IV PAIN; Start 03/29/20 at 15:30; Stop 03/30/20 at 15:29; Status DC Nitroglycerin (Nitrostat) 0.4 mg PRN Q5MIN PRN SL CHEST PAIN; Start 03/29/20 at 15:30; Stop 03/30/20 at 15:29; Status DC Apixaban (Eliquis) 10 mg BID PO Last administered on 03/29/20at 20:53; Start 03/29/20 at 21:00; Stop 03/30/20 at 15:45; Status DC Donepezil HCl (Aricept) 5 mg QHS PO Last administered on 04/01/20at 20:43; Start 03/29/20 at 21:00 Ergocalciferol (Vitamin D2) 50,000 unit WEEKLY PO ; Start 04/05/20 at 09:00 Vitamin B Complex/ Vitamin C (Sarahy-Angelia) 1 tab DAILY PO Last administered on 04/02/20at 08:57; Start 03/30/20 at 09:00 Hydralazine HCl (Apresoline) 25 mg BID PO Last administered on 04/02/20at 08:57; Start 03/29/20 at 21:00 Losartan Potassium (Cozaar) 25 mg BID PO Last administered on 04/02/20at 08:57; Start 03/29/20 at 21:00 Ziprasidone (Geodon) 20 mg HS PO Last administered on 04/01/20at 20:44; Start 03/29/20 at 21:00 Apixaban (Eliquis) 5 mg BID PO ; Start 04/03/20 at 09:00; Status Cancel Acetaminophen (Tylenol) 650 mg PRN Q6HRS PRN PO MILD PAIN / TEMP > 100.3'F Last administered on 04/01/20at 15:17; Start 03/30/20 at 03:00 Ibuprofen (Motrin) 400 mg PRN Q6HRS PRN PO INFLAMMATION Last administered on 03/31/20at 20:46; Start 03/30/20 at 03:00 Info (PHARMACY MONITORING -- do not chart) 1 each PRN DAILY PRN MC SEE COMMENTS; Start 03/30/20 at 10:15 Info (PHARMACY MONITORING -- do not chart) 1 each PRN DAILY PRN MC SEE COMMENTS; Start 03/30/20 at 10:15; Status UNV Pantoprazole Sodium (Protonix) 40 mg DAILYAC PO Last administered on 04/02/20at 06:23; Start 03/31/20 at 07:30 Lidocaine HCl (Xylocaine-Mpf 1% 2ml Vial) 2 ml STK-MED ONCE .ROUTE ; Start 03/31/20 at 13:57; Stop 03/31/20 at 13:57; Status DC Sodium Chloride 1,000 ml @ 1,000 mls/hr Q1H PRN IV hypotension; Start 03/31/20 at 13:00; Stop 03/31/20 at 18:59; Status DC Albumin Human 200 ml @ 200 mls/hr 1X PRN PRN IV Hypotension; Start 03/31/20 at 13:00; Stop 03/31/20 at 18:59; Status DC Sodium Chloride 1,000 ml @ 400 mls/hr Q2H30M PRN IV PATENCY; Start 03/31/20 at 13:00; Stop 04/01/20 at 00:59; Status DC Info (PHARMACY MONITORING -- do not chart) 1 each PRN DAILY PRN MC SEE COMMENTS; Start 03/31/20 at 15:30; Status UNV Info (PHARMACY MONITORING -- do not chart) 1 each PRN DAILY PRN MC SEE COMMENTS; Start 03/31/20 at 15:30; Status Cancel Acetaminophen (Tylenol) 650 mg 1X PRN PRN PO PRE-TRANSFUSION; Start 04/01/20 at 12:30 Diphenhydramine HCl (Benadryl Oral Elixir) 12.5 mg 1X PRN PRN PO PRE- TRANSFUSION Last administered on 04/01/20at 15:16; Start 04/01/20 at 12:30; Stop 04/01/20 at 15:18; Status DC Active Scripts Active Reported Eliquis (Apixaban) 5 Mg Tablet 10 Mg PO DAILY 7 Days Sarahy-Angelia Tablet (Folic Acid/Vitamin B Comp W-C) 0.8 Mg Tablet 1 Tab PO DAILY 30 Days Vitamin D2 (Ergocalciferol (Vitamin D2)) 1,250 Mcg Capsule 1,250 Mcg PO WEEKLY Donepezil Hcl 5 Mg Tablet 5 Mg PO QHS Ziprasidone Hcl 20 Mg Capsule 20 Mg PO HS Hydralazine Hcl 25 Mg Tablet 1 Tab PO BID Vitals/I & O Vital Sign - Last 24 Hours 04/01/20 04/01/20 04/01/20 04/01/20 19:00 19:45 20:43 20:44 Temp 97.9 97.9 Pulse 84 84 84 Resp 19 B/P (MAP) 121/39 (66) 121/39 121/39 Pulse Ox 96 O2 Delivery Room Air Room Air 04/01/20 04/02/20 04/02/20 04/02/20 22:57 03:15 07:00 08:00 Temp 98.0 97.1 97.7 98.0 97.1 97.7 Pulse 85 77 65 Resp 18 18 18 B/P (MAP) 116/42 (66) 124/39 (67) 137/51 (79) Pulse Ox 97 100 95 O2 Delivery Room Air Room Air Room Air Room Air 04/02/20 04/02/20 04/02/20 04/02/20 08:57 08:57 10:41 14:40 Temp 98.0 97.8 98.0 97.8 Pulse 65 65 78 79 Resp 18 18 B/P (MAP) 137/51 137/51 127/40 (69) 152/52 (85) Pulse Ox 98 98 O2 Delivery Room Air Room Air Intake and Output 04/01/20 04/01/20 04/02/20 15:00 23:00 07:00 Intake Total 240 ml 740 ml 180 ml Output Total 50 ml 75 ml 25 ml Balance 190 ml 665 ml 155 ml Justicifation of Admission Dx: Justifications for Admission: Justification of Admission Dx: Yes CHF: Hemodynamic Instability RUSSELL ESCALERA MD Apr 02, 2020 16:26
[2020-04-02 19:54] VITALS: BP 127/31
[2020-04-02] MEDS: ZIPRASIDONE 20 MG CAPSULE PO SCH (21:31)
[2020-04-02] MEDS: DONEPEZIL HCL 5 MG TABLET. PO SCH (21:31)
[2020-04-02 22:59] VITALS: BP 130/37
[2020-04-03 02:51] VITALS: BP 137/39
[2020-04-03 05:55] LABS: HEMATOCRIT 22.7 % (36.0-47.0); HEMOGLOBIN 7.7 g/dL (12.0-15.5); RED BLOOD COUNT 2.54 x10^6/uL (3.50-5.40); RED CELL DISTRIBUTION WIDTH 17.3 % (11.5-14.5); WHITE BLOOD COUNT 4.9 x10^3/uL (4.0-11.0)
[2020-04-03 06:01] LABS: CALCIUM 6.6 mg/dL (8.5-10.1); GFR 6.8
[2020-04-03 07:00] VITALS: BP 120/46
[2020-04-03] MEDS ORDERED: IV NORMAL SALINE 1000ML BAG 1,000 ML IV PRN ×2 (07:54)
[2020-04-03] MEDS ORDERED: DIALYSIS PATIENT. MC PRN (08:00)
[2020-04-03] MEDS ORDERED: diphenhydrAMINE 50 MG/ML VIAL IV PRN ×2 (08:00)
[2020-04-03] MEDS: PANTOPRAZOLE 40 MG TABLET.DR. PO SCH (08:28)
[2020-04-03] MEDS: FOLIC/VIT B COMP W-C (RENAL) TABLET. PO SCH (08:28)
[2020-04-03] MEDS: LOSARTAN POTASSIUM 25 MG TABLET. PO SCH ×2 (08:28→20:37)
--- NOTE | 2020-04-03 08:51 | NUR ---
PATIENT LEAVES THE UNIT PER BED FOR DIALYSIS, EMOTIONAL SUPPORT GIVEN.
[2020-04-03] MEDS ORDERED: APIXABAN 5 MG TABLET. PO SCH (09:00)
[2020-04-03] MEDS: hydrALAZINE 25 MG TABLET PO SCH ×2 (09:00→20:36)
--- NOTE | 2020-04-03 10:05 | NUR ---
PATIENTS' DAUGHTER HERE AT THE BEDSIDE INQUIRING FROM THIS MANAGER CANCER ABOUT PATIENT BEING DISCHARGED TODAY, INFORMED THAT PATIENT IS IN DIALYSIS AND THAT THERE IS POSSIBILITY THAT PATIENT COULD BE DISCHARGED BUT NO ORDERS HAD BEEN RECEIVED AT THIS TIME AND THAT I WOULD CALL HER WHEN ORDERS WERE RECEIVED.
--- NOTE | 2020-04-03 10:40 | PDOC ---
Date of Service: DATE: 04/03/20 TIME: 10:35 Objective: Objective: No reports of bleeding. D/w Dr. Hernandez - kelechi Turcios - Hgb should have improved more w/ transfusions? Note getting ibuprofen PRN. Vital Signs: Vital Signs Date Time Temp Pulse Resp B/P (MAP) Pulse Ox O2 Delivery O2 Flow Rate FiO2 04/03/20 08:28 80 137/39 04/03/20 07:00 97.9 18 94 Room Air 97.9 Labs: Laboratory Tests Test 04/02/20 11:19 04/02/20 20:40 04/03/20 05:30 04/03/20 07:24 Glucose (Fingerstick) 141 mg/dL 135 mg/dL 114 mg/dL White Blood Count 4.9 x10^3/uL Red Blood Count 2.54 x10^6/uL Hemoglobin 7.7 g/dL Hematocrit 22.7 % Mean Corpuscular Volume 89 fL Mean Corpuscular Hemoglobin 31 pg Mean Corpuscular Hemoglobin Concent 34 g/dL Red Cell Distribution Width 17.3 % Platelet Count 199 x10^3/uL Sodium Level 135 mmol/L Potassium Level 5.0 mmol/L Chloride Level 99 mmol/L Carbon Dioxide Level 29 mmol/L Anion Gap 7 Blood Urea Nitrogen 77 mg/dL Creatinine 7.0 mg/dL Estimated GFR (Cockcroft-Gault) 6.8 Glucose Level 101 mg/dL Calcium Level 6.6 mg/dL Imaging: Upper Extrem US 03/31 IMPRESSION: 1. Nonocclusive thrombus within the left internal jugular vein appears to have partially resolved since 03/22/2020. PE: GEN: dialyzing - sleeping soundly LUNGS: clear anteriorly HEART: RRR ABD: non-distended NEURO/PSYCH: not awakened A/P: Normocytic anemia - Hgb in 7-8 range post transfusions, on empiric PPI CHF, ESRD on HD Recent LIJ DVT - interval US as above, Karolina novoa -- Will review any plans for further GI workup w/ Dr. Tom. Ideally would avoid NSAIDs. Justicifation of Admission Dx: Justifications for Admission: Justification of Admission Dx: Yes CHF: Hemodynamic Instability DANYELL COLE Apr 03, 2020 10:40
[2020-04-03] MEDS: IBUPROFEN 400 MG TABLET. PO PRN (11:40)
--- NOTE | 2020-04-03 12:40 | NUR ---
PATIENT RETURNED TO ROOM FROM DIALYSIS PER BED, PATIENT ALERT AND VERBALLY RESPONSIVE WITH COMPLAINTS OF PAIN DISPITE RECEIVING MOTRIN DURING LATER PART OF DIALYSIS, VITAL OBTAINED PATIENT IS REQUESTED TO NOT BE TOUCHED D/T PAIN. 1 KILO REMOVED IN DIALYSIS REPORTED PER BARROW WORKER HELPER, WILL MONITOR.
--- NOTE | 2020-04-03 13:09 | PDOC ---
Renal-Progress Notes Vitals Vitals Vital Signs Date Time Temp Pulse Resp B/P (MAP) Pulse Ox O2 Delivery O2 Flow Rate FiO2 04/03/20 09:00 99/34 04/03/20 08:28 80 04/03/20 08:00 Room Air 04/03/20 07:00 97.9 18 94 97.9 Weight Weight [ ] I.O. Intake and Output Intake and Output 04/03/20 07:00 Intake Total 760 ml Output Total 300 ml Balance 460 ml Intake Oral 760 ml Output Urine Total 300 ml # Bowel Movements 1 Labs Labs Laboratory Tests Test 04/02/20 20:40 04/03/20 05:30 04/03/20 07:24 04/03/20 12:39 Glucose (Fingerstick) 135 mg/dL (70-99) 114 mg/dL (70-99) 100 mg/dL (70-99) White Blood Count 4.9 x10^3/uL (4.0-11.0) Red Blood Count 2.54 x10^6/uL (3.50-5.40) Hemoglobin 7.7 g/dL (12.0-15.5) Hematocrit 22.7 % (36.0-47.0) Mean Corpuscular Volume 89 fL (79-100) Mean Corpuscular Hemoglobin 31 pg (25-35) Mean Corpuscular Hemoglobin Concent 34 g/dL (31-37) Red Cell Distribution Width 17.3 % (11.5-14.5) Platelet Count 199 x10^3/uL (140-400) Sodium Level 135 mmol/L (136-145) Potassium Level 5.0 mmol/L (3.5-5.1) Chloride Level 99 mmol/L (98-107) Carbon Dioxide Level 29 mmol/L (21-32) Anion Gap 7 (6-14) Blood Urea Nitrogen 77 mg/dL (7-20) Creatinine 7.0 mg/dL (0.6-1.0) Estimated GFR (Cockcroft-Gault) 6.8 Glucose Level 101 mg/dL (70-99) Calcium Level 6.6 mg/dL (8.5-10.1) Review of Systems Constitutional: yes: alert, oriented Ears/Nose/Throat: Yes: no symptom reported Eyes: Yes: no symptom reported Pulmonary: Yes no symptom reported Cardiovascular: Yes no symptom reported Gastrointestional: Yes: no symptom reported Genitourinary: Yes: no symptom reported Musculoskeletal: Yes: no symptom reported Skin: Yes no symptom reported Psychiatric/Neurological: Yes: no symptom reported Endocrine: Yes: no symptom reported Physical Exam General Appearance: no apparent distress Heart: S1S2 Abdomen: soft, bowel sounds present Extremities: pulses present Neurology: alert, follow commands, other (forgetful ) Assessment Assessment IMP ESRD ANEMIA LEFT ARM EDEMA S/P RECENT L ARM AVG DM II IJ OCCLUSION MOST LIKELY RATHER THAN THROMBUS PLAN AVOID ANTICOAGULATION DUE TO HIGH RISK AND MOST LIKELY THIS IS FIBRIN VS STENOSIS HD TODAY UF TO DW START ELISEO D/W ATTENDING MAURO CASEY MD Apr 03, 2020 13:09
[2020-04-03 14:49] VITALS: BP 99/44
--- NOTE | 2020-04-03 15:08 | PDOC ---
PROGRESS NOTES Date of Service: DATE: 04/03/20 TIME: 15:04 Chief Complaint Chief Complaint ASSESSMENT/PLAN 1. Chest pain, atypical; Recent LHC revealed no significant CAD. Most likely costochondritis HEART CATH FINDINGS 1. Hemodynamics: Left ventricular end-diastolic pressure of 21 mmHg. No pullback gradient across the aortic valve. 2. Left ventriculography: Hyperdynamic left ventricle systolic function with ejection fraction estimated at 80%. No significant mitral regurgitation seen. 3. Coronary angiography: a. The left main coronary artery arose from the left sinus of Valsalva, gave rise to the left anterior descending and left circumflex arteries and did not show any significant stenosis. b. The left anterior descending artery did not show any significant stenosis. c. The left circumflex artery did not show any significant stenosis. d. The right coronary artery was a dominant vessel arising from the right sinus of Valsalva that did not show any significant stenosis. Conclusion 1. No significant coronary disease 2. Hyperdynamic left ventricle systolic function with ejection fraction estimated at 80%. Recommendations Patient's non-STEMI is most probably type II/demand ischemia. Continue medical management. DATE: 03/06/20 1120 Hyperkalemia Internal lJugular thrombosis, on anticoagulation with Eliquis currently on hold and repeat ultrasound reveals a nonocclusive thrombus that is partially dissolved, this most likely was a consequence of the previously central venous catheter placement and now that this has been discontinued probably not playing an important role in no clinical evidence of instability Acute on chronic diastolic CHF: cath showed EF hyperdynamic at 80%. appears compensated Essential Hypertension DM2 ESRD on HD nstemi type II, demand ischemia Type 2. secondary to profound anemia iron deficiency anemia Severe malnutrition Plan: follow GI recommendations no evidence of bleeding will provide iron supplementation folow recs from nephrology Echo to assess LV systolic function Fluid offloading via HD Will discontinue eliquis since patient risk outweight the benefit, her DVT seems to be non occlusive and it may well be part of the endovascular sheet for her graft as discussed with nephrology it web development consultant. recheck h and h in the am will follow recommendations from GI History of Present Illness History of Present Illness In no acute distress, no chest pain or palpitations, sduaghter at bedside, plan of care discussed in detail. Vitals Vitals Vital Signs Date Time Temp Pulse Resp B/P (MAP) Pulse Ox O2 Delivery O2 Flow Rate FiO2 04/03/20 14:49 97.8 87 20 99/44 (62) 96 Room Air 97.8 Physical Exam General: Alert, Oriented X3, Cooperative, No acute distress Heart: Regular rate Lungs: Clear Abdomen: Normal bowel sounds, Soft, No tenderness, No hepatosplenomegaly, No masses Extremities: Other ( LUE with a new dialysis fistula no signs of infection) Skin: No rashes, No breakdown, No significant lesion Labs LABS Laboratory Tests Test 04/02/20 20:40 04/03/20 05:30 04/03/20 07:24 04/03/20 12:39 Glucose (Fingerstick) 135 mg/dL (70-99) 114 mg/dL (70-99) 100 mg/dL (70-99) White Blood Count 4.9 x10^3/uL (4.0-11.0) Red Blood Count 2.54 x10^6/uL (3.50-5.40) Hemoglobin 7.7 g/dL (12.0-15.5) Hematocrit 22.7 % (36.0-47.0) Mean Corpuscular Volume 89 fL (79-100) Mean Corpuscular Hemoglobin 31 pg (25-35) Mean Corpuscular Hemoglobin Concent 34 g/dL (31-37) Red Cell Distribution Width 17.3 % (11.5-14.5) Platelet Count 199 x10^3/uL (140-400) Sodium Level 135 mmol/L (136-145) Potassium Level 5.0 mmol/L (3.5-5.1) Chloride Level 99 mmol/L (98-107) Carbon Dioxide Level 29 mmol/L (21-32) Anion Gap 7 (6-14) Blood Urea Nitrogen 77 mg/dL (7-20) Creatinine 7.0 mg/dL (0.6-1.0) Estimated GFR (Cockcroft-Gault) 6.8 Glucose Level 101 mg/dL (70-99) Calcium Level 6.6 mg/dL (8.5-10.1) Assessment and Plan Assessmemt and Plan Problems Medical Problems: (1) Chest pain Status: Acute Comment Review of Relevant I have reviewed the following items rose (where applicable) has been applied. Labs Laboratory Tests Test 04/01/20 16:06 04/01/20 20:42 04/02/20 04:50 04/02/20 06:58 Glucose (Fingerstick) 142 mg/dL (70-99) 156 mg/dL (70-99) 100 mg/dL (70-99) White Blood Count 5.4 x10^3/uL (4.0-11.0) Red Blood Count 2.69 x10^6/uL (3.50-5.40) Hemoglobin 8.0 g/dL (12.0-15.5) Hematocrit 23.7 % (36.0-47.0) Mean Corpuscular Volume 88 fL (79-100) Mean Corpuscular Hemoglobin 30 pg (25-35) Mean Corpuscular Hemoglobin Concent 34 g/dL (31-37) Red Cell Distribution Width 16.8 % (11.5-14.5) Platelet Count 205 x10^3/uL (140-400) Neutrophils (%) (Auto) 70 % (31-73) Lymphocytes (%) (Auto) 16 % (24-48) Monocytes (%) (Auto) 13 % (0-9) Eosinophils (%) (Auto) 1 % (0-3) Basophils (%) (Auto) 1 % (0-3) Neutrophils # (Auto) 3.8 x10^3/uL (1.8-7.7) Lymphocytes # (Auto) 0.8 x10^3/uL (1.0-4.8) Monocytes # (Auto) 0.7 x10^3/uL (0.0-1.1) Eosinophils # (Auto) 0.0 x10^3/uL (0.0-0.7) Basophils # (Auto) 0.0 x10^3/uL (0.0-0.2) Test 04/02/20 11:19 04/02/20 20:40 04/03/20 05:30 04/03/20 07:24 Glucose (Fingerstick) 141 mg/dL (70-99) 135 mg/dL (70-99) 114 mg/dL (70-99) White Blood Count 4.9 x10^3/uL (4.0-11.0) Red Blood Count 2.54 x10^6/uL (3.50-5.40) Hemoglobin 7.7 g/dL (12.0-15.5) Hematocrit 22.7 % (36.0-47.0) Mean Corpuscular Volume 89 fL (79-100) Mean Corpuscular Hemoglobin 31 pg (25-35) Mean Corpuscular Hemoglobin Concent 34 g/dL (31-37) Red Cell Distribution Width 17.3 % (11.5-14.5) Platelet Count 199 x10^3/uL (140-400) Sodium Level 135 mmol/L (136-145) Potassium Level 5.0 mmol/L (3.5-5.1) Chloride Level 99 mmol/L (98-107) Carbon Dioxide Level 29 mmol/L (21-32) Anion Gap 7 (6-14) Blood Urea Nitrogen 77 mg/dL (7-20) Creatinine 7.0 mg/dL (0.6-1.0) Estimated GFR (Cockcroft-Gault) 6.8 Glucose Level 101 mg/dL (70-99) Calcium Level 6.6 mg/dL (8.5-10.1) Test 04/03/20 12:39 Glucose (Fingerstick) 100 mg/dL (70-99) Laboratory Tests Test 04/02/20 20:40 04/03/20 05:30 04/03/20 07:24 04/03/20 12:39 Glucose (Fingerstick) 135 mg/dL (70-99) 114 mg/dL (70-99) 100 mg/dL (70-99) White Blood Count 4.9 x10^3/uL (4.0-11.0) Red Blood Count 2.54 x10^6/uL (3.50-5.40) Hemoglobin 7.7 g/dL (12.0-15.5) Hematocrit 22.7 % (36.0-47.0) Mean Corpuscular Volume 89 fL (79-100) Mean Corpuscular Hemoglobin 31 pg (25-35) Mean Corpuscular Hemoglobin Concent 34 g/dL (31-37) Red Cell Distribution Width 17.3 % (11.5-14.5) Platelet Count 199 x10^3/uL (140-400) Sodium Level 135 mmol/L (136-145) Potassium Level 5.0 mmol/L (3.5-5.1) Chloride Level 99 mmol/L (98-107) Carbon Dioxide Level 29 mmol/L (21-32) Anion Gap 7 (6-14) Blood Urea Nitrogen 77 mg/dL (7-20) Creatinine 7.0 mg/dL (0.6-1.0) Estimated GFR (Cockcroft-Gault) 6.8 Glucose Level 101 mg/dL (70-99) Calcium Level 6.6 mg/dL (8.5-10.1) Medications Current Medications Aspirin (panpan Aspirin) 325 mg 1X ONCE PO ; Start 03/29/20 at 13:00; Stop 03/29/20 at 13:01; Status DC Nitroglycerin (Nitrostat) 0.4 mg PRN Q5MIN PRN SL CP RATING > 1/10; Start 03/29/20 at 13:00; Stop 03/30/20 at 12:59; Status Cancel Morphine Sulfate (Morphine Sulfate) 4 mg PRN Q15MIN PRN IV/SQ PAIN GREATER THAN 3/10; Start 03/29/20 at 13:00; Stop 03/29/20 at 17:24; Status DC Ondansetron HCl (Zofran) 4 mg PRN Q8HRS PRN IV NAUSEA/VOMITING; Start 03/29/20 at 15:30; Stop 03/30/20 at 15:29; Status DC Morphine Sulfate (Morphine Sulfate) 2 mg PRN Q2HR PRN IV PAIN; Start 03/29/20 at 15:30; Stop 03/30/20 at 15:29; Status DC Nitroglycerin (Nitrostat) 0.4 mg PRN Q5MIN PRN SL CHEST PAIN; Start 03/29/20 at 15:30; Stop 03/30/20 at 15:29; Status DC Apixaban (Eliquis) 10 mg BID PO Last administered on 03/29/20at 20:53; Start 03/29/20 at 21:00; Stop 03/30/20 at 15:45; Status DC Donepezil HCl (Aricept) 5 mg QHS PO Last administered on 04/02/20at 21:31; Start 03/29/20 at 21:00 Ergocalciferol (Vitamin D2) 50,000 unit WEEKLY PO ; Start 04/05/20 at 09:00 Vitamin B Complex/ Vitamin C (Sarahy-Angelia) 1 tab DAILY PO Last administered on 04/03/20 08:28; Start 03/30/20 at 09:00 Hydralazine HCl (Apresoline) 25 mg BID PO Last administered on 04/02/20at 21:33; Start 03/29/20 at 21:00 Losartan Potassium (Cozaar) 25 mg BID PO Last administered on 04/03/20 08:28; Start 03/29/20 at 21:00 Ziprasidone (Geodon) 20 mg HS PO Last administered on 04/02/20at 21:31; Start 03/29/20 at 21:00 Apixaban (Eliquis) 5 mg BID PO ; Start 04/03/20 at 09:00; Status Cancel Acetaminophen (Tylenol) 650 mg PRN Q6HRS PRN PO MILD PAIN / TEMP > 100.3'F Last administered on 04/01/20at 15:17; Start 03/30/20 at 03:00 Ibuprofen (Motrin) 400 mg PRN Q6HRS PRN PO INFLAMMATION Last administered on 04/03/20at 11:40; Start 03/30/20 at 03:00 Info (PHARMACY MONITORING -- do not chart) 1 each PRN DAILY PRN MC SEE COMMENTS; Start 03/30/20 at 10:15 Info (PHARMACY MONITORING -- do not chart) 1 each PRN DAILY PRN MC SEE COMMENTS; Start 03/30/20 at 10:15; Status UNV Pantoprazole Sodium (Protonix) 40 mg DAILYAC PO Last administered on 04/03/20 08:28; Start 03/31/20 at 07:30 Lidocaine HCl (Xylocaine-Mpf 1% 2ml Vial) 2 ml STK-MED ONCE .ROUTE ; Start 03/31/20 at 13:57; Stop 03/31/20 at 13:57; Status DC Sodium Chloride 1,000 ml @ 1,000 mls/hr Q1H PRN IV hypotension; Start 03/31/20 at 13:00; Stop 03/31/20 at 18:59; Status DC Albumin Human 200 ml @ 200 mls/hr 1X PRN PRN IV Hypotension; Start 03/31/20 at 13:00; Stop 03/31/20 at 18:59; Status DC Sodium Chloride 1,000 ml @ 400 mls/hr Q2H30M PRN IV PATENCY; Start 03/31/20 at 13:00; Stop 04/01/20 at 00:59; Status DC Info (PHARMACY MONITORING -- do not chart) 1 each PRN DAILY PRN MC SEE COMMENTS; Start 03/31/20 at 15:30; Status UNV Info (PHARMACY MONITORING -- do not chart) 1 each PRN DAILY PRN MC SEE COMMENT S; Start 03/31/20 at 15:30; Status Cancel Acetaminophen (Tylenol) 650 mg 1X PRN PRN PO PRE-TRANSFUSION; Start 04/01/20 at 12:30 Diphenhydramine HCl (Benadryl Oral Elixir) 12.5 mg 1X PRN PRN PO PRE- TRANSFUSION Last administered on 04/01/20at 15:16; Start 04/01/20 at 12:30; Stop 04/01/20 at 15:18; Status DC Sodium Chloride 1,000 ml @ 1,000 mls/hr Q1H PRN IV hypotension; Start 04/03/20 at 07:54; Stop 04/03/20 at 13:53; Status DC Diphenhydramine HCl (Benadryl) 25 mg 1X PRN PRN IV ITCHING; Start 04/03/20 at 08:00; Stop 04/04/20 at 07:59 Diphenhydramine HCl (Benadryl) 25 mg 1X PRN PRN IV ITCHING; Start 04/03/20 at 08:00; Stop 04/04/20 at 07:59 Sodium Chloride 1,000 ml @ 400 mls/hr Q2H30M PRN IV PATENCY; Start 04/03/20 at 07:54; Stop 04/03/20 at 19:53 Info (PHARMACY MONITORING -- do not chart) 1 each PRN DAILY PRN MC SEE COMMENTS; Start 04/03/20 at 08:00; Stop 04/03/20 at 07:58; Status DC Lidocaine HCl (Xylocaine-Mpf 1% 2ml Vial) 2 ml STK-MED ONCE .ROUTE ; Start 03/31/20 at 14:00; Stop 04/03/20 at 12:35; Status DC Darbepoetin Mike (ARANESP for DIALYSIS PTS) 60 mcg WEEKLYHS SQ ; Start 04/03/20 at 21:00 Active Scripts Active Reported Eliquis (Apixaban) 5 Mg Tablet 10 Mg PO DAILY 7 Days Sarahy-Angelia Tablet (Folic Acid/Vitamin B Comp W-C) 0.8 Mg Tablet 1 Tab PO DAILY 30 Days Vitamin D2 (Ergocalciferol (Vitamin D2)) 1,250 Mcg Capsule 1,250 Mcg PO WEEKLY Donepezil Hcl 5 Mg Tablet 5 Mg PO QHS Ziprasidone Hcl 20 Mg Capsule 20 Mg PO HS Hydralazine Hcl 25 Mg Tablet 1 Tab PO BID Vitals/I & O Vital Sign - Last 24 Hours 04/02/20 04/02/20 04/02/20 04/02/20 19:27 19:54 21:31 21:33 Temp 98.1 98.1 Pulse 76 76 76 Resp 18 B/P (MAP) 127/31 (63) 127/31 127/31 Pulse Ox 97 O2 Delivery Room Air Room Air 04/02/20 04/03/20 04/03/20 04/03/20 22:59 02:51 07:00 08:00 Temp 98.0 98.0 97.9 98.0 98.0 97.9 Pulse 79 80 70 Resp 19 18 18 B/P (MAP) 130/37 (68) 137/39 (71) 120/46 (70) Pulse Ox 99 98 94 O2 Delivery Room Air Room Air Room Air Room Air 04/03/20 04/03/20 04/03/20 08:28 09:00 14:49 Temp 97.8 97.8 Pulse 80 87 Resp 20 B/P (MAP) 137/39 99/34 99/44 (62) Pulse Ox 96 O2 Delivery Room Air Intake and Output 04/02/20 04/02/20 04/03/20 14:59 22:59 06:59 Intake Total 240 ml 400 ml 120 ml Output Total 200 ml 50 ml 50 ml Balance 40 ml 350 ml 70 ml Justicifation of Admission Dx: Justifications for Admission: Justification of Admission Dx: Yes CHF: Hemodynamic Instability RUSSELL ESCALERA MD Apr 03, 2020 15:08
[2020-04-03 19:45] VITALS: BP 141/48
[2020-04-03] MEDS: DONEPEZIL HCL 5 MG TABLET. PO SCH (20:36)
[2020-04-03] MEDS: ZIPRASIDONE 20 MG CAPSULE PO SCH (20:36)
[2020-04-03] MEDS ORDERED: DARBEPOETIN ALFA 60 MCG/0.3 ML DISP.SYRIN. SQ SCH (21:00)
[2020-04-03 23:15] VITALS: BP 136/47
[2020-04-04 03:45] VITALS: BP 155/49
[2020-04-04 07:00] VITALS: BP 162/57
[2020-04-04 07:41] LABS: BASO % 1 % (0-3); EOS # 0.1 x10^3/uL (0.0-0.7); EOS % 1 % (0-3); HEMATOCRIT 25.1 % (36.0-47.0); HEMOGLOBIN 8.3 g/dL (12.0-15.5); LYMPH # 0.6 x10^3/uL (1.0-4.8); LYMPH % 13 % (24-48); MEAN CORPUSCULAR HEMOGLOBIN 30 pg (25-35); MEAN CORPUSCULAR HGB CONC 33 g/dL (31-37); MEAN CORPUSCULAR VOLUME 90 fL (79-100); MONO # 0.7 x10^3/uL (0.0-1.1); MONO % 15 % (0-9); NEUT # 3.3 x10^3/uL (1.8-7.7); NEUT % 70 % (31-73); PLATELET COUNT 202 x10^3/uL (140-400); RED BLOOD COUNT 2.79 x10^6/uL (3.50-5.40); RED CELL DISTRIBUTION WIDTH 17.6 % (11.5-14.5); WHITE BLOOD COUNT 4.7 x10^3/uL (4.0-11.0)
[2020-04-04] MEDS: PANTOPRAZOLE 40 MG TABLET.DR. PO SCH (08:58)
[2020-04-04] MEDS: FOLIC/VIT B COMP W-C (RENAL) TABLET. PO SCH (08:58)
[2020-04-04] MEDS: hydrALAZINE 25 MG TABLET PO SCH ×2 (08:58→21:04)
[2020-04-04] MEDS: LOSARTAN POTASSIUM 25 MG TABLET. PO SCH ×2 (08:58→21:04)
--- NOTE | 2020-04-04 10:13 | PDOC ---
Date of Service: DATE: 04/04/20 TIME: 10:10 Subjective: Subjective: Confused - no complaints except would like to be dismissed. Objective: Objective: D/w nurse and Dr. Hernandez - ideally would have EGD prior to DC. Vital Signs: Vital Signs Date Time Temp Pulse Resp B/P (MAP) Pulse Ox O2 Delivery O2 Flow Rate FiO2 04/04/20 08:58 84 162/57 04/04/20 07:00 97.7 20 96 Room Air 97.7 Labs: Laboratory Tests Test 04/03/20 12:39 04/03/20 16:35 04/04/20 05:00 04/04/20 07:29 Glucose (Fingerstick) 100 mg/dL 105 mg/dL 95 mg/dL White Blood Count 4.7 x10^3/uL Red Blood Count 2.79 x10^6/uL Hemoglobin 8.3 g/dL Hematocrit 25.1 % Mean Corpuscular Volume 90 fL Mean Corpuscular Hemoglobin 30 pg Mean Corpuscular Hemoglobin Concent 33 g/dL Red Cell Distribution Width 17.6 % Platelet Count 202 x10^3/uL Neutrophils (%) (Auto) 70 % Lymphocytes (%) (Auto) 13 % Monocytes (%) (Auto) 15 % Eosinophils (%) (Auto) 1 % Basophils (%) (Auto) 1 % Neutrophils # (Auto) 3.3 x10^3/uL Lymphocytes # (Auto) 0.6 x10^3/uL Monocytes # (Auto) 0.7 x10^3/uL Eosinophils # (Auto) 0.1 x10^3/uL Basophils # (Auto) 0.0 x10^3/uL PE: GEN: NAD LUNGS: CTAB HEART: RRR ABD: NABS, S/ND/NT NEURO/PSYCH: confused A/P: Normocytic anemia CHF, ESRD on HD Recent LIJ DVT - Eliquis held -- Was not discharged yesterday. Will attempt to communicate w/ daughter Vanessa re: consent for EGD tomorrow. Justicifation of Admission Dx: Justifications for Admission: Justification of Admission Dx: Yes CHF: Hemodynamic Instability DANYELL COLE Apr 04, 2020 10:13
[2020-04-04 11:00] VITALS: BP 135/46
--- NOTE | 2020-04-04 13:33 | PDOC ---
Renal-Progress Notes Subjective Notes Notes SOME CHRONIC CONFUSION History of Present Illness Hx of present illness STABLE Vitals Vitals Vital Signs Date Time Temp Pulse Resp B/P (MAP) Pulse Ox O2 Delivery O2 Flow Rate FiO2 04/04/20 11:00 97.6 76 20 135/46 (75) 97 Room Air 97.6 Weight Weight [ ] I.O. Intake and Output Intake and Output 04/04/20 07:00 Intake Total 720 ml Output Total 400 ml Balance 320 ml Intake Oral 720 ml Output Urine Total 400 ml Labs Labs Laboratory Tests Test 04/03/20 16:35 04/04/20 05:00 04/04/20 07:29 04/04/20 11:45 Glucose (Fingerstick) 105 mg/dL (70-99) 95 mg/dL (70-99) 126 mg/dL (70-99) White Blood Count 4.7 x10^3/uL (4.0-11.0) Red Blood Count 2.79 x10^6/uL (3.50-5.40) Hemoglobin 8.3 g/dL (12.0-15.5) Hematocrit 25.1 % (36.0-47.0) Mean Corpuscular Volume 90 fL (79-100) Mean Corpuscular Hemoglobin 30 pg (25-35) Mean Corpuscular Hemoglobin Concent 33 g/dL (31-37) Red Cell Distribution Width 17.6 % (11.5-14.5) Platelet Count 202 x10^3/uL (140-400) Neutrophils (%) (Auto) 70 % (31-73) Lymphocytes (%) (Auto) 13 % (24-48) Monocytes (%) (Auto) 15 % (0-9) Eosinophils (%) (Auto) 1 % (0-3) Basophils (%) (Auto) 1 % (0-3) Neutrophils # (Auto) 3.3 x10^3/uL (1.8-7.7) Lymphocytes # (Auto) 0.6 x10^3/uL (1.0-4.8) Monocytes # (Auto) 0.7 x10^3/uL (0.0-1.1) Eosinophils # (Auto) 0.1 x10^3/uL (0.0-0.7) Basophils # (Auto) 0.0 x10^3/uL (0.0-0.2) Hepatitis B Surface Antigen Nonreactive (Nonreactive) Review of Systems Constitutional: yes: alert, oriented Ears/Nose/Throat: Yes: no symptom reported Eyes: Yes: no symptom reported Pulmonary: Yes no symptom reported Cardiovascular: Yes no symptom reported Gastrointestional: Yes: no symptom reported Genitourinary: Yes: no symptom reported Musculoskeletal: Yes: no symptom reported Skin: Yes no symptom reported Psychiatric/Neurological: Yes: no symptom reported Endocrine: Yes: no symptom reported Physical Exam General Appearance: no apparent distress Heart: S1S2 Abdomen: soft, bowel sounds present Extremities: pulses present Neurology: alert, follow commands, other (forgetful ) Assessment Assessment IMP ESRD ANEMIA LEFT ARM EDEMA S/P RECENT L ARM AVG WITH STEAL SYMPTOMS DM II IJ OCCLUSION MOST LIKELY RATHER THAN THROMBUS PLAN GI EVALUATION AVOID ANTICOAGULATION DUE TO HIGH RISK AND MOST LIKELY THIS IS FIBRIN VS STENOSIS MAY NEED TO MAKE HER AVG AA MORE PROXIMAL IF STEAL SYMPTOMS DONT IMPROVE HD TOMORROW STARTED ELISEO D/W ATTENDING MAURO CASEY MD Apr 04, 2020 13:33
[2020-04-04 15:00] VITALS: BP 146/38
--- NOTE | 2020-04-04 15:28 | PDOC ---
PROGRESS NOTES Date of Service: DATE: 04/04/20 TIME: 15:26 Chief Complaint Chief Complaint ASSESSMENT/PLAN 1. Chest pain, atypical; Recent LHC revealed no significant CAD. Most likely costochondritis HEART CATH FINDINGS 1. Hemodynamics: Left ventricular end-diastolic pressure of 21 mmHg. No pullback gradient across the aortic valve. 2. Left ventriculography: Hyperdynamic left ventricle systolic function with ejection fraction estimated at 80%. No significant mitral regurgitation seen. 3. Coronary angiography: a. The left main coronary artery arose from the left sinus of Valsalva, gave rise to the left anterior descending and left circumflex arteries and did not show any significant stenosis. b. The left anterior descending artery did not show any significant stenosis. c. The left circumflex artery did not show any significant stenosis. d. The right coronary artery was a dominant vessel arising from the right sinus of Valsalva that did not show any significant stenosis. Conclusion 1. No significant coronary disease 2. Hyperdynamic left ventricle systolic function with ejection fraction estimated at 80%. Recommendations Patient's non-STEMI is most probably type II/demand ischemia. Continue medical management. DATE: 03/06/20 1120 Hyperkalemia resolved Internal lJugular thrombosis, on anticoagulation with Eliquis currently on hold and repeat ultrasound reveals a nonocclusive thrombus that is partially dissolved, this most likely was a consequence of the previously central venous catheter placement and now that this has been discontinued probably not playing an important role in no clinical evidence of instability Acute on chronic diastolic CHF: cath showed EF hyperdynamic at 80%. appears compensated Essential Hypertension DM2 ESRD on HD nstemi type II, demand ischemia Type 2. secondary to profound anemia iron deficiency anemia Severe malnutrition Plan: follow GI recommendations, hemoglobin still dropping she will have an EGD in the am no evidence of bleeding will provide iron supplementation folow recs from nephrology Fluid offloading via HD Will discontinue eliquis since patient risk outweight the benefit, her DVT seems to be non occlusive and it may well be part of the endovascular sheet for her graft as discussed with nephrology senior telecommunications consultant. History of Present Illness History of Present Illness In no acute distress, no chest pain or palpitations, sduaghter at bedside, plan of care discussed in detail. Vitals Vitals Vital Signs Date Time Temp Pulse Resp B/P (MAP) Pulse Ox O2 Delivery O2 Flow Rate FiO2 04/04/20 11:00 97.6 76 20 135/46 (75) 97 Room Air 97.6 Physical Exam General: Alert, Oriented X3, Cooperative, No acute distress Heart: Regular rate Lungs: Clear Abdomen: Normal bowel sounds, Soft, No tenderness, No hepatosplenomegaly, No masses Extremities: Other ( LUE with a new dialysis fistula no signs of infection) Skin: No rashes, No breakdown, No significant lesion Labs LABS Laboratory Tests Test 04/03/20 16:35 04/04/20 05:00 04/04/20 07:29 04/04/20 11:45 Glucose (Fingerstick) 105 mg/dL (70-99) 95 mg/dL (70-99) 126 mg/dL (70-99) White Blood Count 4.7 x10^3/uL (4.0-11.0) Red Blood Count 2.79 x10^6/uL (3.50-5.40) Hemoglobin 8.3 g/dL (12.0-15.5) Hematocrit 25.1 % (36.0-47.0) Mean Corpuscular Volume 90 fL (79-100) Mean Corpuscular Hemoglobin 30 pg (25-35) Mean Corpuscular Hemoglobin Concent 33 g/dL (31-37) Red Cell Distribution Width 17.6 % (11.5-14.5) Platelet Count 202 x10^3/uL (140-400) Neutrophils (%) (Auto) 70 % (31-73) Lymphocytes (%) (Auto) 13 % (24-48) Monocytes (%) (Auto) 15 % (0-9) Eosinophils (%) (Auto) 1 % (0-3) Basophils (%) (Auto) 1 % (0-3) Neutrophils # (Auto) 3.3 x10^3/uL (1.8-7.7) Lymphocytes # (Auto) 0.6 x10^3/uL (1.0-4.8) Monocytes # (Auto) 0.7 x10^3/uL (0.0-1.1) Eosinophils # (Auto) 0.1 x10^3/uL (0.0-0.7) Basophils # (Auto) 0.0 x10^3/uL (0.0-0.2) Hepatitis B Surface Antigen Nonreactive (Nonreactive) Assessment and Plan Assessmemt and Plan Problems Medical Problems: (1) Chest pain Status: Acute Comment Review of Relevant I have reviewed the following items rose (where applicable) has been applied. Labs Laboratory Tests Test 04/02/20 20:40 04/03/20 05:30 04/03/20 07:24 04/03/20 12:39 Glucose (Fingerstick) 135 mg/dL (70-99) 114 mg/dL (70-99) 100 mg/dL (70-99) White Blood Count 4.9 x10^3/uL (4.0-11.0) Red Blood Count 2.54 x10^6/uL (3.50-5.40) Hemoglobin 7.7 g/dL (12.0-15.5) Hematocrit 22.7 % (36.0-47.0) Mean Corpuscular Volume 89 fL (79-100) Mean Corpuscular Hemoglobin 31 pg (25-35) Mean Corpuscular Hemoglobin Concent 34 g/dL (31-37) Red Cell Distribution Width 17.3 % (11.5-14.5) Platelet Count 199 x10^3/uL (140-400) Sodium Level 135 mmol/L (136-145) Potassium Level 5.0 mmol/L (3.5-5.1) Chloride Level 99 mmol/L (98-107) Carbon Dioxide Level 29 mmol/L (21-32) Anion Gap 7 (6-14) Blood Urea Nitrogen 77 mg/dL (7-20) Creatinine 7.0 mg/dL (0.6-1.0) Estimated GFR (Cockcroft-Gault) 6.8 Glucose Level 101 mg/dL (70-99) Calcium Level 6.6 mg/dL (8.5-10.1) Test 04/03/20 16:35 04/04/20 05:00 04/04/20 07:29 04/04/20 11:45 Glucose (Fingerstick) 105 mg/dL (70-99) 95 mg/dL (70-99) 126 mg/dL (70-99) White Blood Count 4.7 x10^3/uL (4.0-11.0) Red Blood Count 2.79 x10^6/uL (3.50-5.40) Hemoglobin 8.3 g/dL (12.0-15.5) Hematocrit 25.1 % (36.0-47.0) Mean Corpuscular Volume 90 fL (79-100) Mean Corpuscular Hemoglobin 30 pg (25-35) Mean Corpuscular Hemoglobin Concent 33 g/dL (31-37) Red Cell Distribution Width 17.6 % (11.5-14.5) Platelet Count 202 x10^3/uL (140-400) Neutrophils (%) (Auto) 70 % (31-73) Lymphocytes (%) (Auto) 13 % (24-48) Monocytes (%) (Auto) 15 % (0-9) Eosinophils (%) (Auto) 1 % (0-3) Basophils (%) (Auto) 1 % (0-3) Neutrophils # (Auto) 3.3 x10^3/uL (1.8-7.7) Lymphocytes # (Auto) 0.6 x10^3/uL (1.0-4.8) Monocytes # (Auto) 0.7 x10^3/uL (0.0-1.1) Eosinophils # (Auto) 0.1 x10^3/uL (0.0-0.7) Basophils # (Auto) 0.0 x10^3/uL (0.0-0.2) Hepatitis B Surface Antigen Nonreactive (Nonreactive) Laboratory Tests Test 04/03/20 16:35 04/04/20 05:00 04/04/20 07:29 04/04/20 11:45 Glucose (Fingerstick) 105 mg/dL (70-99) 95 mg/dL (70-99) 126 mg/dL (70-99) White Blood Count 4.7 x10^3/uL (4.0-11.0) Red Blood Count 2.79 x10^6/uL (3.50-5.40) Hemoglobin 8.3 g/dL (12.0-15.5) Hematocrit 25.1 % (36.0-47.0) Mean Corpuscular Volume 90 fL (79-100) Mean Corpuscular Hemoglobin 30 pg (25-35) Mean Corpuscular Hemoglobin Concent 33 g/dL (31-37) Red Cell Distribution Width 17.6 % (11.5-14.5) Platelet Count 202 x10^3/uL (140-400) Neutrophils (%) (Auto) 70 % (31-73) Lymphocytes (%) (Auto) 13 % (24-48) Monocytes (%) (Auto) 15 % (0-9) Eosinophils (%) (Auto) 1 % (0-3) Basophils (%) (Auto) 1 % (0-3) Neutrophils # (Auto) 3.3 x10^3/uL (1.8-7.7) Lymphocytes # (Auto) 0.6 x10^3/uL (1.0-4.8) Monocytes # (Auto) 0.7 x10^3/uL (0.0-1.1) Eosinophils # (Auto) 0.1 x10^3/uL (0.0-0.7) Basophils # (Auto) 0.0 x10^3/uL (0.0-0.2) Hepatitis B Surface Antigen Nonreactive (Nonreactive) Medications Current Medications Aspirin (Cherise Aspirin) 325 mg 1X ONCE PO ; Start 03/29/20 at 13:00; Stop 03/29/20 at 13:01; Status DC Nitroglycerin (Nitrostat) 0.4 mg PRN Q5MIN PRN SL CP RATING > 1/10; Start 03/29/20 at 13:00; Stop 03/30/20 at 12:59; Status Cancel Morphine Sulfate (Morphine Sulfate) 4 mg PRN Q15MIN PRN IV/SQ PAIN GREATER THAN 3/10; Start 03/29/20 at 13:00; Stop 03/29/20 at 17:24; Status DC Ondansetron HCl (Zofran) 4 mg PRN Q8HRS PRN IV NAUSEA/VOMITING; Start 03/29/20 at 15:30; Stop 03/30/20 at 15:29; Status DC Morphine Sulfate (Morphine Sulfate) 2 mg PRN Q2HR PRN IV PAIN; Start 03/29/20 at 15:30; Stop 03/30/20 at 15:29; Status DC Nitroglycerin (Nitrostat) 0.4 mg PRN Q5MIN PRN SL CHEST PAIN; Start 03/29/20 at 15:30; Stop 03/30/20 at 15:29; Status DC Apixaban (Eliquis) 10 mg BID PO Last administered on 03/29/20at 20:53; Start 03/29/20 at 21:00; Stop 03/30/20 at 15:45; Status DC Donepezil HCl (Aricept) 5 mg QHS PO Last administered on 04/03/20at 20:36; Start 03/29/20 at 21:00 Ergocalciferol (Vitamin D2) 50,000 unit WEEKLY PO ; Start 04/05/20 at 09:00 Vitamin B Complex/ Vitamin C (Sarahy-Angelia) 1 tab DAILY PO Last administered on 04/04/20at 08:58; Start 03/30/20 at 09:00 Hydralazine HCl (Apresoline) 25 mg BID PO Last administered on 04/04/20 08:58; Start 03/29/20 at 21:00 Losartan Potassium (Cozaar) 25 mg BID PO Last administered on 04/04/20at 08:58; Start 03/29/20 at 21:00 Ziprasidone (Geodon) 20 mg HS PO Last administered on 04/03/20at 20:36; Start 03/29/20 at 21:00 Apixaban (Eliquis) 5 mg BID PO ; Start 04/03/20 at 09:00; Status Cancel Acetaminophen (Tylenol) 650 mg PRN Q6HRS PRN PO MILD PAIN / TEMP > 100.3'F Last administered on 04/01/20at 15:17; Start 03/30/20 at 03:00 Ibuprofen (Motrin) 400 mg PRN Q6HRS PRN PO INFLAMMATION Last administered on 04/03/20at 11:40; Start 03/30/20 at 03:00; Stop 04/03/20 at 16:51; Status DC Info (PHARMACY MONITORING -- do not chart) 1 each PRN DAILY PRN MC SEE CO MMENTS; Start 03/30/20 at 10:15 Info (PHARMACY MONITORING -- do not chart) 1 each PRN DAILY PRN MC SEE COMMENTS; Start 03/30/20 at 10:15; Status UNV Pantoprazole Sodium (Protonix) 40 mg DAILYAC PO Last administered on 04/04/20at 08:58; Start 03/31/20 at 07:30 Lidocaine HCl (Xylocaine-Mpf 1% 2ml Vial) 2 ml STK-MED ONCE .ROUTE ; Start 03/31/20 at 13:57; Stop 03/31/20 at 13:57; Status DC Sodium Chloride 1,000 ml @ 1,000 mls/hr Q1H PRN IV hypotension; Start 03/31/20 at 13:00; Stop 03/31/20 at 18:59; Status DC Albumin Human 200 ml @ 200 mls/hr 1X PRN PRN IV Hypotension; Start 03/31/20 at 13:00; Stop 03/31/20 at 18:59; Status DC Sodium Chloride 1,000 ml @ 400 mls/hr Q2H30M PRN IV PATENCY; Start 03/31/20 at 13:00; Stop 04/01/20 at 00:59; Status DC Info (PHARMACY MONITORING -- do not chart) 1 each PRN DAILY PRN MC SEE COMMENTS; Start 03/31/20 at 15:30; Status UNV Info (PHARMACY MONITORING -- do not chart) 1 each PRN DAILY PRN MC SEE COMMENTS; Start 03/31/20 at 15:30; Status Cancel Acetaminophen (Tylenol) 650 mg 1X PRN PRN PO PRE-TRANSFUSION; Start 04/01/20 at 12:30 Diphenhydramine HCl (Benadryl Oral Elixir) 12.5 mg 1X PRN PRN PO PRE- TRANSFUSION Last administered on 04/01/20at 15:16; Start 04/01/20 at 12:30; Stop 04/01/20 at 15:18; Status DC Sodium Chloride 1,000 ml @ 1,000 mls/hr Q1H PRN IV hypotension; Start 04/03/20 at 07:54; Stop 04/03/20 at 13:53; Status DC Diphenhydramine HCl (Benadryl) 25 mg 1X PRN PRN IV ITCHING; Start 04/03/20 at 08:00; Stop 04/04/20 at 07:59; Status DC Diphenhydramine HCl (Benadryl) 25 mg 1X PRN PRN IV ITCHING; Start 04/03/20 at 08:00; Stop 04/04/20 at 07:59; Status DC Sodium Chloride 1,000 ml @ 400 mls/hr Q2H30M PRN IV PATENCY; Start 04/03/20 at 07:54; Stop 04/03/20 at 19:53; Status DC Info (PHARMACY MONITORING -- do not chart) 1 each PRN DAILY PRN MC SEE COMMENTS; Start 04/03/20 at 08:00; Stop 04/03/20 at 07:58; Status DC Lidocaine HCl (Xylocaine-Mpf 1% 2ml Vial) 2 ml STK-MED ONCE .ROUTE ; Start 03/31/20 at 14:00; Stop 04/03/20 at 12:35; Status DC Darbepoetin Mike (ARANESP for DIALYSIS PTS) 60 mcg WEEKLYHS SQ Last administered on 04/03/20at 20:37; Start 04/03/20 at 21:00 Sodium Chloride 1,000 ml @ 0 mls/hr Q0M IV ; Start 04/05/20 at 11:45 Active Scripts Active Reported Eliquis (Apixaban) 5 Mg Tablet 10 Mg PO DAILY 7 Days Sarahy-Angelia Tablet (Folic Acid/Vitamin B Comp W-C) 0.8 Mg Tablet 1 Tab PO DAILY 30 Days Vitamin D2 (Ergocalciferol (Vitamin D2)) 1,250 Mcg Capsule 1,250 Mcg PO WEEKLY Donepezil Hcl 5 Mg Tablet 5 Mg PO QHS Ziprasidone Hcl 20 Mg Capsule 20 Mg PO HS Hydralazine Hcl 25 Mg Tablet 1 Tab PO BID Vitals/I & O Vital Sign - Last 24 Hours 04/03/20 04/03/20 04/03/20 04/03/20 19:45 20:00 20:36 20:37 Temp 97.9 97.9 Pulse 75 75 75 Resp 20 B/P (MAP) 141/48 (79) 141/48 141/48 Pulse Ox 99 O2 Delivery Room Air Room Air 04/03/20 04/04/20 04/04/20 04/04/20 23:15 03:45 07:00 08:00 Temp 97.6 97.7 97.7 97.6 97.7 97.7 Pulse 78 84 84 Resp 18 18 20 B/P (MAP) 136/47 (76) 155/49 (84) 162/57 (92) Pulse Ox 96 99 96 O2 Delivery Room Air Room Air Room Air Room Air 04/04/20 04/04/20 04/04/20 08:58 08:58 11:00 Temp 97.6 97.6 Pulse 84 84 76 Resp 20 B/P (MAP) 162/57 162/57 135/46 (75) Pulse Ox 97 O2 Delivery Room Air Intake and Output 04/03/20 04/03/20 04/04/20 15:00 23:00 07:00 Intake Total 200 ml 200 ml 320 ml Output Total 400 ml Balance -200 ml 200 ml 320 ml Justicifation of Admission Dx: Justifications for Admission: Justification of Admission Dx: Yes CHF: Hemodynamic Instability RUSSELL ESCALERA MD Apr 04, 2020 15:28
[2020-04-04 19:15] VITALS: BP 155/46
[2020-04-04] MEDS: ZIPRASIDONE 20 MG CAPSULE PO SCH (21:03)
[2020-04-04] MEDS: DONEPEZIL HCL 5 MG TABLET. PO SCH (21:03)
[2020-04-04 23:15] VITALS: BP 170/62
[2020-04-05 03:25] VITALS: BP 138/57
[2020-04-05 07:00] VITALS: BP 126/43
[2020-04-05] MEDS ORDERED: IV RINGERS,LACTATED 1000ML 1,000 ML IV ONE (07:45)
[2020-04-05] MEDS ORDERED: ERGOCALCIFEROL (VITAMIN D2) 50,000 UNIT CAPSULE. PO SCH (09:00)
[2020-04-05] MEDS ORDERED: IV NORMAL SALINE 1000ML BAG 1,000 ML IV ONE (10:00)
[2020-04-05] MEDS ORDERED: PROPOFOL 10 MG/ML (20ML) VIAL. IV ONE (10:24)
--- NOTE | 2020-04-05 10:37 | PDOC4 ---
PROCEDURE Procedure EGD/biopsies Indication: anemia Findings: E--mostly-healed, but likely erosive at baseline, esophagitis at 35 cm. G--Non-specific prepyloric erythema; antral biopsies done. D--Normal to second portion. Bambi. well. IMP: Healing reflux. Non-specific gastric erythema. REC: Await biopsies. Continue PPI. DAMARIS TOLBERT MD Apr 05, 2020 10:37
[2020-04-05 11:35] VITALS: BP 142/62
[2020-04-05] MEDS ORDERED: IV NORMAL SALINE 1000ML BAG 1,000 ML IV SCH (11:45)
[2020-04-05] MEDS: FOLIC/VIT B COMP W-C (RENAL) TABLET. PO SCH (14:12)
[2020-04-05] MEDS: PANTOPRAZOLE 40 MG TABLET.DR. PO SCH (14:12)
[2020-04-05] MEDS: LOSARTAN POTASSIUM 25 MG TABLET. PO SCH ×2 (14:13→20:58)
[2020-04-05] MEDS: hydrALAZINE 25 MG TABLET PO SCH ×2 (14:13→20:58)
--- NOTE | 2020-04-05 14:35 | PDOC ---
Renal-Progress Notes Subjective Notes Notes FEELING BETTER History of Present Illness Hx of present illness STABLE Vitals Vitals Vital Signs Date Time Temp Pulse Resp B/P (MAP) Pulse Ox O2 Delivery O2 Flow Rate FiO2 04/05/20 14:13 76 142/62 04/05/20 11:35 96.6 20 94 Room Air 96.6 Weight Weight [ ] I.O. Intake and Output Intake and Output 04/05/20 07:00 Intake Total 1240 ml Balance 1240 ml Intake Oral 1240 ml # Voids 2 Labs Labs Laboratory Tests Test 04/04/20 14:50 04/04/20 20:45 04/05/20 07:57 04/05/20 12:11 Coronavirus (PCR) Not detected (Not Detected) SARS-CoV-2 Antigen (Rapid) Negative (NEGATIVE) Glucose (Fingerstick) 182 mg/dL (70-99) 95 mg/dL (70-99) 107 mg/dL (70-99) Review of Systems Constitutional: yes: alert, oriented Ears/Nose/Throat: Yes: no symptom reported Eyes: Yes: no symptom reported Pulmonary: Yes no symptom reported Cardiovascular: Yes no symptom reported Gastrointestional: Yes: no symptom reported Genitourinary: Yes: no symptom reported Musculoskeletal: Yes: no symptom reported Skin: Yes no symptom reported Psychiatric/Neurological: Yes: no symptom reported Endocrine: Yes: no symptom reported Physical Exam General Appearance: no apparent distress Heart: S1S2 Abdomen: soft, bowel sounds present Extremities: pulses present Neurology: alert, follow commands, other (forgetful ) Assessment Assessment IMP ESRD ANEMIA LEFT ARM EDEMA S/P RECENT L ARM AVG WITH STEAL SYMPTOMS DM II IJ OCCLUSION MOST LIKELY RATHER THAN THROMBUS PLAN GI ENDOSCOPY TODAY HD TODAY UF TO DW STARTED ELISEO D/W DAUGHTER MAURO CASEY MD Apr 05, 2020 14:35
[2020-04-05 15:00] VITALS: BP 127/60
[2020-04-05] MEDS ORDERED: IV NORMAL SALINE 1000ML BAG 1,000 ML IV PRN ×2 (16:05)
[2020-04-05] MEDS ORDERED: DIALYSIS PATIENT. MC PRN (16:15)
--- NOTE | 2020-04-05 17:21 | PDOC ---
PROGRESS NOTES Date of Service: DATE: 04/05/20 TIME: 17:20 Chief Complaint Chief Complaint ASSESSMENT/PLAN 1. Chest pain, atypical; Recent LHC revealed no significant CAD. Most likely costochondritis HEART CATH FINDINGS 1. Hemodynamics: Left ventricular end-diastolic pressure of 21 mmHg. No pullback gradient across the aortic valve. 2. Left ventriculography: Hyperdynamic left ventricle systolic function with ejection fraction estimated at 80%. No significant mitral regurgitation seen. 3. Coronary angiography: a. The left main coronary artery arose from the left sinus of Valsalva, gave rise to the left anterior descending and left circumflex arteries and did not show any significant stenosis. b. The left anterior descending artery did not show any significant stenosis. c. The left circumflex artery did not show any significant stenosis. d. The right coronary artery was a dominant vessel arising from the right sinus of Valsalva that did not show any significant stenosis. Conclusion 1. No significant coronary disease 2. Hyperdynamic left ventricle systolic function with ejection fraction estimated at 80%. Recommendations Patient's non-STEMI is most probably type II/demand ischemia. Continue medical management. DATE: 03/06/20 1120 Hyperkalemia resolved Internal lJugular thrombosis, on anticoagulation with Eliquis currently on hold and repeat ultrasound reveals a nonocclusive thrombus that is partially dissolved, this most likely was a consequence of the previously central venous catheter placement and now that this has been discontinued probably not playing an important role in no clinical evidence of instability Acute on chronic diastolic CHF: cath showed EF hyperdynamic at 80%. appears compensated Essential Hypertension DM2 ESRD on HD nstemi type II, demand ischemia Type 2. secondary to profound anemia iron deficiency anemia Severe malnutrition Plan: follow GI recommendations, hemoglobin still dropping she will have an EGD in the am no evidence of bleeding will provide iron supplementation folow recs from nephrology Fluid offloading via HD Will discontinue eliquis since patient risk outweight the benefit, her DVT seems to be non occlusive and it may well be part of the endovascular sheet for her graft as discussed with nephrology field service consultant. History of Present Illness History of Present Illness Patient seen in dialysis, denies chest pain. Will likely discharge in the morning as per dialysis may finished late this evening. Vitals Vitals Vital Signs Date Time Temp Pulse Resp B/P (MAP) Pulse Ox O2 Delivery O2 Flow Rate FiO2 04/05/20 15:00 98.0 73 20 127/60 (82) 96 Room Air 98.0 Physical Exam General: Alert, Oriented X3, Cooperative, No acute distress Heart: Regular rate Lungs: Clear Abdomen: Normal bowel sounds, Soft, No tenderness, No hepatosplenomegaly, No masses Extremities: Other ( LUE with a new dialysis fistula no signs of infection) Skin: No rashes, No breakdown, No significant lesion Labs LABS Laboratory Tests Test 04/04/20 20:45 04/05/20 07:57 04/05/20 12:11 Glucose (Fingerstick) 182 mg/dL (70-99) 95 mg/dL (70-99) 107 mg/dL (70-99) Review of Systems Review of Systems Denies chest pain, denies shortness of breath. All other review of systems negative Assessment and Plan Assessmemt and Plan Problems Medical Problems: (1) Chest pain Status: Acute Comment Review of Relevant I have reviewed the following items rose (where applicable) has been applied. Labs Laboratory Tests Test 04/04/20 05:00 04/04/20 07:29 04/04/20 11:45 04/04/20 14:50 White Blood Count 4.7 x10^3/uL (4.0-11.0) Red Blood Count 2.79 x10^6/uL (3.50-5.40) Hemoglobin 8.3 g/dL (12.0-15.5) Hematocrit 25.1 % (36.0-47.0) Mean Corpuscular Volume 90 fL (79-100) Mean Corpuscular Hemoglobin 30 pg (25-35) Mean Corpuscular Hemoglobin Concent 33 g/dL (31-37) Red Cell Distribution Width 17.6 % (11.5-14.5) Platelet Count 202 x10^3/uL (140-400) Neutrophils (%) (Auto) 70 % (31-73) Lymphocytes (%) (Auto) 13 % (24-48) Monocytes (%) (Auto) 15 % (0-9) Eosinophils (%) (Auto) 1 % (0-3) Basophils (%) (Auto) 1 % (0-3) Neutrophils # (Auto) 3.3 x10^3/uL (1.8-7.7) Lymphocytes # (Auto) 0.6 x10^3/uL (1.0-4.8) Monocytes # (Auto) 0.7 x10^3/uL (0.0-1.1) Eosinophils # (Auto) 0.1 x10^3/uL (0.0-0.7) Basophils # (Auto) 0.0 x10^3/uL (0.0-0.2) Hepatitis B Surface Antigen Nonreactive (Nonreactive) Glucose (Fingerstick) 95 mg/dL (70-99) 126 mg/dL (70-99) Coronavirus (PCR) Not detected (Not Detected) SARS-CoV-2 Antigen (Rapid) Negative (NEGATIVE) Test 04/04/20 20:45 04/05/20 07:57 04/05/20 12:11 Glucose (Fingerstick) 182 mg/dL (70-99) 95 mg/dL (70-99) 107 mg/dL (70-99) Laboratory Tests Test 04/04/20 20:45 04/05/20 07:57 04/05/20 12:11 Glucose (Fingerstick) 182 mg/dL (70-99) 95 mg/dL (70-99) 107 mg/dL (70-99) Medications Current Medications Aspirin (FlatClub Aspirin) 325 mg 1X ONCE PO ; Start 03/29/20 at 13:00; Stop 03/29/20 at 13:01; Status DC Nitroglycerin (Nitrostat) 0.4 mg PRN Q5MIN PRN SL CP RATING > 1/10; Start 03/29/20 at 13:00; Stop 03/30/20 at 12:59; Status Cancel Morphine Sulfate (Morphine Sulfate) 4 mg PRN Q15MIN PRN IV/SQ PAIN GREATER THAN 3/10; Start 03/29/20 at 13:00; Stop 03/29/20 at 17:24; Status DC Ondansetron HCl (Zofran) 4 mg PRN Q8HRS PRN IV NAUSEA/VOMITING; Start 03/29/20 at 15:30; Stop 03/30/20 at 15:29; Status DC Morphine Sulfate (Morphine Sulfate) 2 mg PRN Q2HR PRN IV PAIN; Start 03/29/20 at 15:30; Stop 03/30/20 at 15:29; Status DC Nitroglycerin (Nitrostat) 0.4 mg PRN Q5MIN PRN SL CHEST PAIN; Start 03/29/20 at 15:30; Stop 03/30/20 at 15:29; Status DC Apixaban (Eliquis) 10 mg BID PO Last administered on 03/29/20at 20:53; Start 03/29/20 at 21:00; Stop 03/30/20 at 15:45; Status DC Donepezil HCl (Aricept) 5 mg QHS PO Last administered on 04/04/20at 21:03; Start 03/29/20 at 21:00 Ergocalciferol (Vitamin D2) 50,000 unit WEEKLY PO Last administered on 04/05/20at 14:12; Start 04/05/20 at 09:00 Vitamin B Complex/ Vitamin C (Sarahy-Angelia) 1 tab DAILY PO Last administered on 04/05/20at 14:12; Start 03/30/20 at 09:00 Hydralazine HCl (Apresoline) 25 mg BID PO Last administered on 04/05/20at 14:13; Start 03/29/20 at 21:00 Losartan Potassium (Cozaar) 25 mg BID PO Last administered on 04/05/20at 14:13; Start 03/29/20 at 21:00 Ziprasidone (Geodon) 20 mg HS PO Last administered on 04/04/20at 21:03; Start 03/29/20 at 21:00 Apixaban (Eliquis) 5 mg BID PO ; Start 04/03/20 at 09:00; Status Cancel Acetaminophen (Tylenol) 650 mg PRN Q6HRS PRN PO MILD PAIN / TEMP > 100.3'F Last administered on 04/01/20at 15:17; Start 03/30/20 at 03:00 Ibuprofen (Motrin) 400 mg PRN Q6HRS PRN PO INFLAMMATION Last administered on 04/03/20at 11:40; Start 03/30/20 at 03:00; Stop 04/03/20 at 16:51; Status DC Info (PHARMACY MONITORING -- do not chart) 1 each PRN DAILY PRN MC SEE COMMENTS; Start 03/30/20 at 10:15 Info (PHARMACY MONITORING -- do not chart) 1 each PRN DAILY PRN MC SEE COMMENTS; Start 03/30/20 at 10:15; Status UNV Pantoprazole Sodium (Protonix) 40 mg DAILYAC PO Last administered on 04/05/20at 14:12; Start 03/31/20 at 07:30 Lidocaine HCl (Xylocaine-Mpf 1% 2ml Vial) 2 ml STK-MED ONCE .ROUTE ; Start 03/31/20 at 13:57; Stop 03/31/20 at 13:57; Status DC Sodium Chloride 1,000 ml @ 1,000 mls/hr Q1H PRN IV hypotension; Start 03/31/20 at 13:00; Stop 03/31/20 at 18:59; Status DC Albumin Human 200 ml @ 200 mls/hr 1X PRN PRN IV Hypotension; Start 03/31/20 at 13:00; Stop 03/31/20 at 18:59; Status DC Sodium Chloride 1,000 ml @ 400 mls/hr Q2H30M PRN IV PATENCY; Start 03/31/20 at 13:00; Stop 04/01/20 at 00:59; Status DC Info (PHARMACY MONITORING -- do not chart) 1 each PRN DAILY PRN MC SEE COMMENTS; Start 03/31/20 at 15:30; Status UNV Info (PHARMACY MONITORING -- do not chart) 1 each PRN DAILY PRN MC SEE COMMENTS; Start 03/31/20 at 15:30; Status Cancel Acetaminophen (Tylenol) 650 mg 1X PRN PRN PO PRE-TRANSFUSION; Start 04/01/20 at 12:30 Diphenhydramine HCl (Benadryl Oral Elixir) 12.5 mg 1X PRN PRN PO PRE- TRANSFUSION Last administered on 04/01/20at 15:16; Start 04/01/20 at 12:30; Stop 04/01/20 at 15:18; Status DC Sodium Chloride 1,000 ml @ 1,000 mls/hr Q1H PRN IV hypotension; Start 04/03/20 at 07:54; Stop 04/03/20 at 13:53; Status DC Diphenhydramine HCl (Benadryl) 25 mg 1X PRN PRN IV ITCHING; Start 04/03/20 at 08:00; Stop 04/04/20 at 07:59; Status DC Diphenhydramine HCl (Benadryl) 25 mg 1X PRN PRN IV ITCHING; Start 04/03/20 at 08:00; Stop 04/04/20 at 07:59; Status DC Sodium Chloride 1,000 ml @ 400 mls/hr Q2H30M PRN IV PATENCY; Start 04/03/20 at 07:54; Stop 04/03/20 at 19:53; Status DC Info (PHARMACY MONITORING -- do not chart) 1 each PRN DAILY PRN MC SEE COMMENTS; Start 04/03/20 at 08:00; Stop 04/03/20 at 07:58; Status DC Lidocaine HCl (Xylocaine-Mpf 1% 2ml Vial) 2 ml STK-MED ONCE .ROUTE ; Start 03/31/20 at 14:00; Stop 04/03/20 at 12:35; Status DC Darbepoetin Mike (ARANESP for DIALYSIS PTS) 60 mcg WEEKLYHS SQ Last administered on 04/03/20at 20:37; Start 04/03/20 at 21:00 Sodium Chloride 1,000 ml @ 0 mls/hr Q0M IV ; Start 04/05/20 at 11:45 Ringer's Solution 1,000 ml @ 75 mls/hr 1X ONCE IV ; Start 04/05/20 at 07:45; Stop 04/05/20 at 14:09; Status DC Sodium Chloride 1,000 ml @ 30 mls/hr 1X ONCE IV Last administered on 04/05/20at 10:00; Start 04/05/20 at 10:00; Stop 04/06/20 at 19:19 Propofol (Diprivan) 200 mg STK-MED ONCE IV ; Start 04/05/20 at 10:24; Stop 04/05/20 at 10:24; Status DC Sodium Chloride 1,000 ml @ 1,000 mls/hr Q1H PRN IV hypotension; Start 04/05/20 at 16:05; Stop 04/05/20 at 22:04 Sodium Chloride 1,000 ml @ 400 mls/hr Q2H30M PRN IV PATENCY; Start 04/05/20 at 16:05; Stop 04/06/20 at 04:04 Info (PHARMACY MONITORING -- do not chart) 1 each PRN DAILY PRN MC SEE COMMENTS; Start 04/05/20 at 16:15 Active Scripts Active Reported Eliquis (Apixaban) 5 Mg Tablet 10 Mg PO DAILY 7 Days Sarahy-Angelia Tablet (Folic Acid/Vitamin B Comp W-C) 0.8 Mg Tablet 1 Tab PO DAILY 30 Days Vitamin D2 (Ergocalciferol (Vitamin D2)) 1,250 Mcg Capsule 1,250 Mcg PO WEEKLY Donepezil Hcl 5 Mg Tablet 5 Mg PO QHS Ziprasidone Hcl 20 Mg Capsule 20 Mg PO HS Hydralazine Hcl 25 Mg Tablet 1 Tab PO BID Vitals/I & O Vital Sign - Last 24 Hours 04/04/20 04/04/20 04/04/20 04/04/20 19:15 20:00 21:04 21:04 Temp 97.8 97.8 Pulse 79 79 79 Resp 18 B/P (MAP) 155/46 (82) 155/46 155/46 Pulse Ox 98 O2 Delivery Room Air Room Air 04/04/20 04/05/20 04/05/20 04/05/20 23:15 03:25 07:00 08:00 Temp 98.2 98.4 97.7 98.2 98.4 97.7 Pulse 83 75 71 Resp 18 18 20 B/P (MAP) 170/62 (98) 138/57 (84) 126/43 (70) Pulse Ox 97 94 96 O2 Delivery Room Air Room Air Room Air Room Air 04/05/20 04/05/20 04/05/20 04/05/20 09:49 09:58 10:37 11:35 Temp 98.3 97.1 96.6 98.3 97.1 96.6 Pulse 73 80 76 Resp 20 16 20 B/P (MAP) 115/53 142/62 (88) Pulse Ox 99 98 94 O2 Delivery Room Air Room Air Room Air 04/05/20 04/05/20 04/05/20 14:13 14:13 15:00 Temp 98.0 98.0 Pulse 76 76 73 Resp 20 B/P (MAP) 142/62 142/62 127/60 (82) Pulse Ox 96 O2 Delivery Room Air Intake and Output 04/04/20 04/04/20 04/05/20 15:00 23:00 07:00 Intake Total 660 ml 280 ml 300 ml Balance 660 ml 280 ml 300 ml Justicifation of Admission Dx: Justifications for Admission: Justification of Admission Dx: Yes CHF: Hemodynamic Instability EDMUND KRUGER MD Apr 05, 2020 17:21
[2020-04-05 19:00] VITALS: BP 124/35
[2020-04-05] MEDS: ZIPRASIDONE 20 MG CAPSULE PO SCH (20:58)
[2020-04-05] MEDS: DONEPEZIL HCL 5 MG TABLET. PO SCH (20:58)
[2020-04-05 22:53] VITALS: BP 145/40
[2020-04-06 02:49] VITALS: BP 122/46
[2020-04-06 07:00] VITALS: BP 126/36
[2020-04-06 07:06] LABS: CALCIUM 6.6 mg/dL (8.5-10.1); CREATININE 5.1 mg/dL (0.6-1.0); GFR 9.8; POTASSIUM 4.5 mmol/L (3.5-5.1)
[2020-04-06 07:58] LABS: BASO % 1 % (0-3); EOS # 0.1 x10^3/uL (0.0-0.7); EOS % 1 % (0-3); HEMATOCRIT 22.5 % (36.0-47.0); HEMOGLOBIN 7.4 g/dL (12.0-15.5); LYMPH # 0.8 x10^3/uL (1.0-4.8); LYMPH % 17 % (24-48); MEAN CORPUSCULAR HEMOGLOBIN 30 pg (25-35); MEAN CORPUSCULAR HGB CONC 33 g/dL (31-37); MEAN CORPUSCULAR VOLUME 90 fL (79-100); MONO # 0.6 x10^3/uL (0.0-1.1); MONO % 13 % (0-9); NEUT # 3.1 x10^3/uL (1.8-7.7); NEUT % 69 % (31-73); PLATELET COUNT 211 x10^3/uL (140-400); RED BLOOD COUNT 2.52 x10^6/uL (3.50-5.40); RED CELL DISTRIBUTION WIDTH 17.5 % (11.5-14.5); WHITE BLOOD COUNT 4.6 x10^3/uL (4.0-11.0)
[2020-04-06] MEDS: LOSARTAN POTASSIUM 25 MG TABLET. PO SCH (08:20)
[2020-04-06] MEDS: hydrALAZINE 25 MG TABLET PO SCH (08:20)
[2020-04-06] MEDS: FOLIC/VIT B COMP W-C (RENAL) TABLET. PO SCH (08:20)
[2020-04-06] MEDS: PANTOPRAZOLE 40 MG TABLET.DR. PO SCH (08:20)
[2020-04-06 10:34] VITALS: BP 158/62
--- NOTE | 2020-04-06 10:40 | PDOC ---
Date of Service: DATE: 04/06/20 TIME: 10:38 Subjective: Subjective: "I get to go home today!!!" Objective: Vital Signs: Vital Signs Date Time Temp Pulse Resp B/P (MAP) Pulse Ox O2 Delivery O2 Flow Rate FiO2 04/06/20 10:34 98.2 81 19 158/62 (94) 95 Room Air 98.2 Labs: Laboratory Tests Test 04/05/20 12:11 04/05/20 20:57 04/06/20 07:04 Glucose (Fingerstick) 107 mg/dL (70-99) 238 mg/dL (70-99) 82 mg/dL (70-99) Imaging: EGD 04/05 E--mostly-healed, but likely erosive at baseline, esophagitis at 35 cm. G--Non-specific prepyloric erythema; antral biopsies done. D--Normal to second portion. IMP: Healing reflux. Non-specific gastric erythema. REC: Await biopsies. Continue PPI. PE: GEN: NAD LUNGS: CTAB HEART: RRR ABD: NABS, S/ND/NT NEURO/PSYCH: A & O 3 A/P: Normocytic anemia CHF, ESRD on HD Recent LIJ DVT - Eliquis stopped -- DC per primary, follow-up on biopsy results. Could consider further GI eval for anemia if desired by family. Justicifation of Admission Dx: Justifications for Admission: Justification of Admission Dx: Yes CHF: Hemodynamic Instability DANYELL COLE Apr 06, 2020 10:40
--- NOTE | 2020-04-06 11:41 | PDOC ---
Renal-Progress Notes Subjective Notes Notes NO NEW COMPLAINTS History of Present Illness Hx of present illness STABLE Vitals Vitals Vital Signs Date Time Temp Pulse Resp B/P (MAP) Pulse Ox O2 Delivery O2 Flow Rate FiO2 04/06/20 10:34 98.2 81 19 158/62 (94) 95 Room Air 98.2 Weight Weight [ ] I.O. Intake and Output Intake and Output 04/06/20 07:00 Intake Total 750 ml Output Total 100 ml Balance 650 ml Intake Oral 550 ml IV Total 200 ml Output Urine Total 100 ml # Bowel Movements 1 Labs Labs Laboratory Tests Test 04/05/20 12:11 04/05/20 20:57 04/06/20 06:40 04/06/20 07:04 Glucose (Fingerstick) 107 mg/dL (70-99) 238 mg/dL (70-99) 82 mg/dL (70-99) Sodium Level 138 mmol/L (136-145) Potassium Level 4.5 mmol/L (3.5-5.1) Chloride Level 102 mmol/L (98-107) Carbon Dioxide Level 32 mmol/L (21-32) Anion Gap 4 (6-14) Blood Urea Nitrogen 50 mg/dL (7-20) Creatinine 5.1 mg/dL (0.6-1.0) Estimated GFR (Cockcroft-Gault) 9.8 Glucose Level 84 mg/dL (70-99) Calcium Level 6.6 mg/dL (8.5-10.1) Test 04/06/20 07:35 04/06/20 11:10 White Blood Count 4.6 x10^3/uL (4.0-11.0) Red Blood Count 2.52 x10^6/uL (3.50-5.40) Hemoglobin 7.4 g/dL (12.0-15.5) Hematocrit 22.5 % (36.0-47.0) Mean Corpuscular Volume 90 fL (79-100) Mean Corpuscular Hemoglobin 30 pg (25-35) Mean Corpuscular Hemoglobin Concent 33 g/dL (31-37) Red Cell Distribution Width 17.5 % (11.5-14.5) Platelet Count 211 x10^3/uL (140-400) Neutrophils (%) (Auto) 69 % (31-73) Lymphocytes (%) (Auto) 17 % (24-48) Monocytes (%) (Auto) 13 % (0-9) Eosinophils (%) (Auto) 1 % (0-3) Basophils (%) (Auto) 1 % (0-3) Neutrophils # (Auto) 3.1 x10^3/uL (1.8-7.7) Lymphocytes # (Auto) 0.8 x10^3/uL (1.0-4.8) Monocytes # (Auto) 0.6 x10^3/uL (0.0-1.1) Eosinophils # (Auto) 0.1 x10^3/uL (0.0-0.7) Basophils # (Auto) 0.0 x10^3/uL (0.0-0.2) Glucose (Fingerstick) 169 mg/dL (70-99) Review of Systems Constitutional: yes: alert, oriented Ears/Nose/Throat: Yes: no symptom reported Eyes: Yes: no symptom reported Pulmonary: Yes no symptom reported Cardiovascular: Yes no symptom reported Gastrointestional: Yes: no symptom reported Genitourinary: Yes: no symptom reported Musculoskeletal: Yes: no symptom reported Skin: Yes no symptom reported Psychiatric/Neurological: Yes: no symptom reported Endocrine: Yes: no symptom reported Physical Exam General Appearance: no apparent distress Heart: S1S2 Abdomen: soft, bowel sounds present Extremities: pulses present Neurology: alert, follow commands, other (forgetful ) Assessment Assessment IMP ESRD ANEMIA LEFT ARM EDEMA S/P RECENT L ARM AVG WITH STEAL SYMPTOMS DM II IJ OCCLUSION MOST LIKELY RATHER THAN THROMBUS PLAN GI EVAL HD TOMORROW ON ELISEO MAURO CASEY MD Apr 06, 2020 11:41
[2020-04-06] MEDS ORDERED: OMEP1CAP24 PO (11:47)
--- NOTE | 2020-04-06 11:52 | PDOC ---
PROGRESS NOTES Date of Service: DATE: 04/06/20 TIME: 11:50 Chief Complaint Chief Complaint ASSESSMENT/PLAN 1. Chest pain, atypical; Recent LHC revealed no significant CAD. Most likely costochondritis HEART CATH FINDINGS 1. Hemodynamics: Left ventricular end-diastolic pressure of 21 mmHg. No pullback gradient across the aortic valve. 2. Left ventriculography: Hyperdynamic left ventricle systolic function with ejection fraction estimated at 80%. No significant mitral regurgitation seen. 3. Coronary angiography: a. The left main coronary artery arose from the left sinus of Valsalva, gave rise to the left anterior descending and left circumflex arteries and did not show any significant stenosis. b. The left anterior descending artery did not show any significant stenosis. c. The left circumflex artery did not show any significant stenosis. d. The right coronary artery was a dominant vessel arising from the right sinus of Valsalva that did not show any significant stenosis. Conclusion 1. No significant coronary disease 2. Hyperdynamic left ventricle systolic function with ejection fraction estimated at 80%. Recommendations Patient's non-STEMI is most probably type II/demand ischemia. Continue medical management. DATE: 03/06/20 1120 Hyperkalemia resolved Internal lJugular thrombosis, on anticoagulation with Eliquis currently on hold and repeat ultrasound reveals a nonocclusive thrombus that is partially dissolved, this most likely was a consequence of the previously central venous catheter placement and now that this has been discontinued probably not playing an important role in no clinical evidence of instability Acute on chronic diastolic CHF: cath showed EF hyperdynamic at 80%. appears compensated Essential Hypertension DM2 ESRD on HD nstemi type II, demand ischemia Type 2. secondary to profound anemia iron deficiency anemia Severe malnutrition Plan: follow GI recommendations, hemoglobin still dropping she will have an EGD in the am no evidence of bleeding will provide iron supplementation folow recs from nephrology Fluid offloading via HD Will discontinue eliquis since patient risk outweight the benefit, her DVT seems to be non occlusive and it may well be part of the endovascular sheet for her graft as discussed with nephrology healthcare economics consultant. History of Present Illness History of Present Illness Patient evaluated at bedside. Discussed results of her EGD and and new medication discharge. She is feeling well, denies chest pain, denies shortness of breath.. Vitals Vitals Vital Signs Date Time Temp Pulse Resp B/P (MAP) Pulse Ox O2 Delivery O2 Flow Rate FiO2 04/06/20 10:34 98.2 81 19 158/62 (94) 95 Room Air 98.2 Physical Exam General: Alert, Oriented X3, Cooperative, No acute distress Heart: Regular rate Lungs: Clear Abdomen: Normal bowel sounds, Soft, No tenderness, No hepatosplenomegaly, No masses Extremities: Other ( LUE with a new dialysis fistula no signs of infection) Skin: No rashes, No breakdown, No significant lesion Labs LABS Laboratory Tests Test 04/05/20 12:11 04/05/20 20:57 04/06/20 06:40 04/06/20 07:04 Glucose (Fingerstick) 107 mg/dL (70-99) 238 mg/dL (70-99) 82 mg/dL (70-99) Sodium Level 138 mmol/L (136-145) Potassium Level 4.5 mmol/L (3.5-5.1) Chloride Level 102 mmol/L (98-107) Carbon Dioxide Level 32 mmol/L (21-32) Anion Gap 4 (6-14) Blood Urea Nitrogen 50 mg/dL (7-20) Creatinine 5.1 mg/dL (0.6-1.0) Estimated GFR (Cockcroft-Gault) 9.8 Glucose Level 84 mg/dL (70-99) Calcium Level 6.6 mg/dL (8.5-10.1) Test 04/06/20 07:35 04/06/20 11:10 White Blood Count 4.6 x10^3/uL (4.0-11.0) Red Blood Count 2.52 x10^6/uL (3.50-5.40) Hemoglobin 7.4 g/dL (12.0-15.5) Hematocrit 22.5 % (36.0-47.0) Mean Corpuscular Volume 90 fL (79-100) Mean Corpuscular Hemoglobin 30 pg (25-35) Mean Corpuscular Hemoglobin Concent 33 g/dL (31-37) Red Cell Distribution Width 17.5 % (11.5-14.5) Platelet Count 211 x10^3/uL (140-400) Neutrophils (%) (Auto) 69 % (31-73) Lymphocytes (%) (Auto) 17 % (24-48) Monocytes (%) (Auto) 13 % (0-9) Eosinophils (%) (Auto) 1 % (0-3) Basophils (%) (Auto) 1 % (0-3) Neutrophils # (Auto) 3.1 x10^3/uL (1.8-7.7) Lymphocytes # (Auto) 0.8 x10^3/uL (1.0-4.8) Monocytes # (Auto) 0.6 x10^3/uL (0.0-1.1) Eosinophils # (Auto) 0.1 x10^3/uL (0.0-0.7) Basophils # (Auto) 0.0 x10^3/uL (0.0-0.2) Glucose (Fingerstick) 169 mg/dL (70-99) Review of Systems Review of Systems All review of systems negative Assessment and Plan Assessmemt and Plan Problems Medical Problems: (1) Chest pain Status: Acute Comment Review of Relevant I have reviewed the following items rose (where applicable) has been applied. Labs Laboratory Tests Test 04/04/20 14:50 04/04/20 20:45 04/05/20 07:57 04/05/20 12:11 Coronavirus (PCR) Not detected (Not Detected) SARS-CoV-2 Antigen (Rapid) Negative (NEGATIVE) Glucose (Fingerstick) 182 mg/dL (70-99) 95 mg/dL (70-99) 107 mg/dL (70-99) Test 04/05/20 20:57 04/06/20 06:40 04/06/20 07:04 04/06/20 07:35 Glucose (Fingerstick) 238 mg/dL (70-99) 82 mg/dL (70-99) Sodium Level 138 mmol/L (136-145) Potassium Level 4.5 mmol/L (3.5-5.1) Chloride Level 102 mmol/L (98-107) Carbon Dioxide Level 32 mmol/L (21-32) Anion Gap 4 (6-14) Blood Urea Nitrogen 50 mg/dL (7-20) Creatinine 5.1 mg/dL (0.6-1.0) Estimated GFR (Cockcroft-Gault) 9.8 Glucose Level 84 mg/dL (70-99) Calcium Level 6.6 mg/dL (8.5-10.1) White Blood Count 4.6 x10^3/uL (4.0-11.0) Red Blood Count 2.52 x10^6/uL (3.50-5.40) Hemoglobin 7.4 g/dL (12.0-15.5) Hematocrit 22.5 % (36.0-47.0) Mean Corpuscular Volume 90 fL (79-100) Mean Corpuscular Hemoglobin 30 pg (25-35) Mean Corpuscular Hemoglobin Concent 33 g/dL (31-37) Red Cell Distribution Width 17.5 % (11.5-14.5) Platelet Count 211 x10^3/uL (140-400) Neutrophils (%) (Auto) 69 % (31-73) Lymphocytes (%) (Auto) 17 % (24-48) Monocytes (%) (Auto) 13 % (0-9) Eosinophils (%) (Auto) 1 % (0-3) Basophils (%) (Auto) 1 % (0-3) Neutrophils # (Auto) 3.1 x10^3/uL (1.8-7.7) Lymphocytes # (Auto) 0.8 x10^3/uL (1.0-4.8) Monocytes # (Auto) 0.6 x10^3/uL (0.0-1.1) Eosinophils # (Auto) 0.1 x10^3/uL (0.0-0.7) Basophils # (Auto) 0.0 x10^3/uL (0.0-0.2) Test 04/06/20 11:10 Glucose (Fingerstick) 169 mg/dL (70-99) Laboratory Tests Test 04/05/20 12:11 04/05/20 20:57 04/06/20 06:40 04/06/20 07:04 Glucose (Fingerstick) 107 mg/dL (70-99) 238 mg/dL (70-99) 82 mg/dL (70-99) Sodium Level 138 mmol/L (136-145) Potassium Level 4.5 mmol/L (3.5-5.1) Chloride Level 102 mmol/L (98-107) Carbon Dioxide Level 32 mmol/L (21-32) Anion Gap 4 (6-14) Blood Urea Nitrogen 50 mg/dL (7-20) Creatinine 5.1 mg/dL (0.6-1.0) Estimated GFR (Cockcroft-Gault) 9.8 Glucose Level 84 mg/dL (70-99) Calcium Level 6.6 mg/dL (8.5-10.1) Test 04/06/20 07:35 04/06/20 11:10 White Blood Count 4.6 x10^3/uL (4.0-11.0) Red Blood Count 2.52 x10^6/uL (3.50-5.40) Hemoglobin 7.4 g/dL (12.0-15.5) Hematocrit 22.5 % (36.0-47.0) Mean Corpuscular Volume 90 fL (79-100) Mean Corpuscular Hemoglobin 30 pg (25-35) Mean Corpuscular Hemoglobin Concent 33 g/dL (31-37) Red Cell Distribution Width 17.5 % (11.5-14.5) Platelet Count 211 x10^3/uL (140-400) Neutrophils (%) (Auto) 69 % (31-73) Lymphocytes (%) (Auto) 17 % (24-48) Monocytes (%) (Auto) 13 % (0-9) Eosinophils (%) (Auto) 1 % (0-3) Basophils (%) (Auto) 1 % (0-3) Neutrophils # (Auto) 3.1 x10^3/uL (1.8-7.7) Lymphocytes # (Auto) 0.8 x10^3/uL (1.0-4.8) Monocytes # (Auto) 0.6 x10^3/uL (0.0-1.1) Eosinophils # (Auto) 0.1 x10^3/uL (0.0-0.7) Basophils # (Auto) 0.0 x10^3/uL (0.0-0.2) Glucose (Fingerstick) 169 mg/dL (70-99) Medications Current Medications Aspirin (Cherise Aspirin) 325 mg 1X ONCE PO ; Start 03/29/20 at 13:00; Stop 03/29/20 at 13:01; Status DC Nitroglycerin (Nitrostat) 0.4 mg PRN Q5MIN PRN SL CP RATING > 1/10; Start 03/11 04/30 at 13:00; Stop 03/30/20 at 12:59; Status Cancel Morphine Sulfate (Morphine Sulfate) 4 mg PRN Q15MIN PRN IV/SQ PAIN GREATER THAN 3/10; Start 03/29/20 at 13:00; Stop 03/29/20 at 17:24; Status DC Ondansetron HCl (Zofran) 4 mg PRN Q8HRS PRN IV NAUSEA/VOMITING; Start 03/29/20 at 15:30; Stop 03/30/20 at 15:29; Status DC Morphine Sulfate (Morphine Sulfate) 2 mg PRN Q2HR PRN IV PAIN; Start 03/29/20 at 15:30; Stop 03/30/20 at 15:29; Status DC Nitroglycerin (Nitrostat) 0.4 mg PRN Q5MIN PRN SL CHEST PAIN; Start 03/29/20 at 15:30; Stop 03/30/20 at 15:29; Status DC Apixaban (Eliquis) 10 mg BID PO Last administered on 03/29/20at 20:53; Start 03/29/20 at 21:00; Stop 03/30/20 at 15:45; Status DC Donepezil HCl (Aricept) 5 mg QHS PO Last administered on 04/05/20at 20:58; Start 03/29/20 at 21:00 Ergocalciferol (Vitamin D2) 50,000 unit WEEKLY PO Last administered on 04/05/20at 14:12; Start 04/05/20 at 09:00 Vitamin B Complex/ Vitamin C (Sarahy-Angelia) 1 tab DAILY PO Last administered on 04/06/20at 08:20; Start 03/30/20 at 09:00 Hydralazine HCl (Apresoline) 25 mg BID PO Last administered on 04/06/20at 08:20; Start 03/29/20 at 21:00 Losartan Potassium (Cozaar) 25 mg BID PO Last administered on 04/06/20at 08:20; Start 03/29/20 at 21:00 Ziprasidone (Geodon) 20 mg HS PO Last administered on 04/05/20at 20:58; Start 03/29/20 at 21:00 Apixaban (Eliquis) 5 mg BID PO ; Start 04/03/20 at 09:00; Status Cancel Acetaminophen (Tylenol) 650 mg PRN Q6HRS PRN PO MILD PAIN / TEMP > 100.3'F Last administered on 04/01/20at 15:17; Start 03/30/20 at 03:00 Ibuprofen (Motrin) 400 mg PRN Q6HRS PRN PO INFLAMMATION Last administered on 04/03/20at 11:40; Start 03/30/20 at 03:00; Stop 04/03/20 at 16:51; Status DC Info (PHARMACY MONITORING -- do not chart) 1 each PRN DAILY PRN MC SEE COMMENTS; Start 03/30/20 at 10:15 Info (PHARMACY MONITORING -- do not chart) 1 each PRN DAILY PRN MC SEE COMMENTS; Start 03/30/20 at 10:15; Status UNV Pantoprazole Sodium (Protonix) 40 mg DAILYAC PO Last administered on 04/06/20at 08:20; Start 03/31/20 at 07:30 Lidocaine HCl (Xylocaine-Mpf 1% 2ml Vial) 2 ml STK-MED ONCE .ROUTE ; Start 03/31/20 at 13:57; Stop 03/31/20 at 13:57; Status DC Sodium Chloride 1,000 ml @ 1,000 mls/hr Q1H PRN IV hypotension; Start 03/31/20 at 13:00; Stop 03/31/20 at 18:59; Status DC Albumin Human 200 ml @ 200 mls/hr 1X PRN PRN IV Hypotension; Start 03/31/20 at 13:00; Stop 03/31/20 at 18:59; Status DC Sodium Chloride 1,000 ml @ 400 mls/hr Q2H30M PRN IV PATENCY; Start 03/31/20 at 13:00; Stop 04/01/20 at 00:59; Status DC Info (PHARMACY MONITORING -- do not chart) 1 each PRN DAILY PRN MC SEE COMMENTS; Start 03/31/20 at 15:30; Status UNV Info (PHARMACY MONITORING -- do not chart) 1 each PRN DAILY PRN MC SEE COMMENTS; Start 03/31/20 at 15:30; Status Cancel Acetaminophen (Tylenol) 650 mg 1X PRN PRN PO PRE-TRANSFUSION; Start 04/01/20 at 12:30 Diphenhydramine HCl (Benadryl Oral Elixir) 12.5 mg 1X PRN PRN PO PRE-TRANS FUSION Last administered on 04/01/20at 15:16; Start 04/01/20 at 12:30; Stop 04/01/20 at 15:18; Status DC Sodium Chloride 1,000 ml @ 1,000 mls/hr Q1H PRN IV hypotension; Start 04/03/20 at 07:54; Stop 04/03/20 at 13:53; Status DC Diphenhydramine HCl (Benadryl) 25 mg 1X PRN PRN IV ITCHING; Start 04/03/20 at 08:00; Stop 04/04/20 at 07:59; Status DC Diphenhydramine HCl (Benadryl) 25 mg 1X PRN PRN IV ITCHING; Start 04/03/20 at 08:00; Stop 04/04/20 at 07:59; Status DC Sodium Chloride 1,000 ml @ 400 mls/hr Q2H30M PRN IV PATENCY; Start 04/03/20 at 07:54; Stop 04/03/20 at 19:53; Status DC Info (PHARMACY MONITORING -- do not chart) 1 each PRN DAILY PRN MC SEE COMMENTS; Start 04/03/20 at 08:00; Stop 04/03/20 at 07:58; Status DC Lidocaine HCl (Xylocaine-Mpf 1% 2ml Vial) 2 ml STK-MED ONCE .ROUTE ; Start 03/31/20 at 14:00; Stop 04/03/20 at 12:35; Status DC Darbepoetin Mike (ARANESP for DIALYSIS PTS) 60 mcg WEEKLYHS SQ Last administered on 04/03/20at 20:37; Start 04/03/20 at 21:00 Sodium Chloride 1,000 ml @ 0 mls/hr Q0M IV ; Start 04/05/20 at 11:45 Ringer's Solution 1,000 ml @ 75 mls/hr 1X ONCE IV ; Start 04/05/20 at 07:45; Stop 04/05/20 at 14:09; Status DC Sodium Chloride 1,000 ml @ 30 mls/hr 1X ONCE IV Last administered on 04/05/20at 10:00; Start 04/05/20 at 10:00; Stop 04/06/20 at 19:19 Propofol (Diprivan) 200 mg STK-MED ONCE IV ; Start 04/05/20 at 10:24; Stop 04/05/20 at 10:24; Status DC Sodium Chloride 1,000 ml @ 1,000 mls/hr Q1H PRN IV hypotension; Start 04/05/20 at 16:05; Stop 04/05/20 at 22:04; Status DC Sodium Chloride 1,000 ml @ 400 mls/hr Q2H30M PRN IV PATENCY; Start 04/05/20 at 16:05; Stop 04/06/20 at 04:04; Status DC Info (PHARMACY MONITORING -- do not chart) 1 each PRN DAILY PRN MC SEE COMMENTS; Start 04/05/20 at 16:15 Active Scripts Active Omeprazole-Bicarb 20-1,100 Cap (Omeprazole/Sodium Bicarbonate) 1 Each Capsule 1 Cap PO DAILY 60 Days Reported Eliquis (Apixaban) 5 Mg Tablet 10 Mg PO DAILY 7 Days Sarahy-Angelia Tablet (Folic Acid/Vitamin B Comp W-C) 0.8 Mg Tablet 1 Tab PO DAILY 30 Days Vitamin D2 (Ergocalciferol (Vitamin D2)) 1,250 Mcg Capsule 1,250 Mcg PO WEEKLY Donepezil Hcl 5 Mg Tablet 5 Mg PO QHS Ziprasidone Hcl 20 Mg Capsule 20 Mg PO HS Hydralazine Hcl 25 Mg Tablet 1 Tab PO BID Vitals/I & O Vital Sign - Last 24 Hours 04/05/20 04/05/20 04/05/20 04/05/20 14:13 14:13 15:00 19:00 Temp 98.0 98.0 98.0 98.0 Pulse 76 76 73 82 Resp 20 19 B/P (MAP) 142/62 142/62 127/60 (82) 124/35 (64) Pulse Ox 96 96 O2 Delivery Room Air Room Air 04/05/20 04/05/20 04/05/20 04/05/20 20:00 20:58 20:58 22:53 Temp 98.1 98.1 Pulse 82 82 71 Resp 18 B/P (MAP) 124/35 124/35 145/40 (75) Pulse Ox 98 O2 Delivery Room Air Room Air 04/06/20 04/06/20 04/06/20 04/06/20 02:49 07:00 07:40 08:20 Temp 98.0 98.2 98.0 98.2 Pulse 74 57 57 Resp 19 19 B/P (MAP) 122/46 (71) 126/36 (66) 126/36 Pulse Ox 97 96 O2 Delivery Room Air Room Air Room Air 04/06/20 04/06/20 08:20 10:34 Temp 98.2 98.2 Pulse 57 81 Resp 19 B/P (MAP) 126/36 158/62 (94) Pulse Ox 95 O2 Delivery Room Air Intake and Output 04/05/20 04/05/20 04/06/20 15:00 23:00 07:00 Intake Total 450 ml 300 ml 0 ml Output Total 100 ml Balance 450 ml 200 ml 0 ml Justicifation of Admission Dx: Justifications for Admission: Justification of Admission Dx: Yes CHF: Hemodynamic Instability EDMUND KRUGER MD Apr 06, 2020 11:52
--- NOTE | 2020-04-06 11:57 | SNU/HH DC ---
DISCHARGE WITH HOME HEALTH DISCHARGE INFORMATION: Final Diagnosis: Problems Medical Problems: (1) Chest pain Status: Acute Condition on Discharge: Stable CODE STATUS: Code Status: Full HOME HEALTH: Face to Face: I certify this patient is under my care and that I, or a nurse practitioner or physician's assistant casino shift manager working with me, had a face to face encounter that meets the physician face to face encounter requirements with this patient on 04/06/2020. Medical Complications: HTN, Other (Chronic renal insufficiency on hemodialysis) RN For Eval/Treatment: Yes Pt Meets Homebound Status: Fatigue w/ amb., Limited distance walking POST DISCHARGE ORDERS: Activity Instructions for Disc: Activity as tolerated Weight Bearing Status after Di: As tolerated DIET AFTER DISCHARGE: Renal CHECKS AFTER DISCHARGE: Checks after discharge: Check blood press - daily, Weigh Yourself Daily TREATMENT/EQUIPMENT ORDERS: Adaptive Equipment Issued: None CERTIFICATION STATEMENT: Certification Statement: Certification Statement: Based on the above finding, I certify that this patient is confined to the home and needs intermittent chcf care, physical therapy and/or speech therapy, or continues to need occupational therapy.~ This patient is under my care, and I have initiated the establishment of the plan of care.~ This patient will be followed by myself or a community physician who will periodically review the plan of care. Home Meds Active Scripts Omeprazole/Sodium Bicarbonate (OMEPRAZOLE-BICARB 20-1,100 CAP) 1 Each Capsule, 1 CAP PO DAILY for esophagitis for 60 Days, #60 CAP 0 Refills Prov:EDMUND KRUGER MD 04/06/20 Reported Medications Apixaban (ELIQUIS) 5 Mg Tablet, 10 MG PO DAILY for blood thinner for 7 Days, #14 TAB 03/27/20 Folic Acid/Vitamin B Comp W-C (BRUCE-MALU TABLET) 0.8 Mg Tablet, 1 TAB PO DAILY for FOR DIALYSIS PT for 30 Days, #30 TAB 0 Refills 03/23/20 Ergocalciferol (Vitamin D2) (Vitamin D2) 1,250 Mcg Capsule, 1250 MCG PO WEEKLY for 03/03/20 Donepezil Hcl (DONEPEZIL HCL) 5 Mg Tablet, 5 MG PO QHS for 03/03/20 Ziprasidone Hcl (ZIPRASIDONE HCL) 20 Mg Capsule, 20 MG PO HS for bipolar 01/03/20 Hydralazine Hcl (HYDRALAZINE HCL) 25 Mg Tablet, 1 TAB PO BID for hypertension, #90 TAB 5 Refills 08/04/19 EDMUND KRUGER MD Apr 06, 2020 11:57
--- NOTE | 2020-04-06 12:02 | PDOC3 ---
Discharge Summary Visit Information Date of Admission: Mar 29, 2020 Date of Discharge: Apr 06, 2020 Final Diagnosis Problems Medical Problems: (1) Chest pain Status: Acute (2) Anemia Status: Chronic (2) Esophagitis Status: Acute Brief Hospital Course Allergies Allergies Coded Allergies Type Severity Reaction Last Updated Verified Sulfa (Sulfonamide Antibiotics) Allergy Severe "Ashkan Ubaldo's disease" 04/05/20 Yes Vital Signs Vital Signs Date Time Temp Pulse Resp B/P (MAP) Pulse Ox O2 Delivery O2 Flow Rate FiO2 04/06/20 10:34 98.2 81 19 158/62 (94) 95 Room Air 98.2 Lab Results Laboratory Tests Test 04/04/20 14:50 04/04/20 20:45 04/05/20 07:57 04/05/20 12:11 Coronavirus (PCR) Not detected (Not Detected) SARS-CoV-2 Antigen (Rapid) Negative (NEGATIVE) Glucose (Fingerstick) 182 mg/dL (70-99) 95 mg/dL (70-99) 107 mg/dL (70-99) Test 04/05/20 20:57 04/06/20 06:40 04/06/20 07:04 04/06/20 07:35 Glucose (Fingerstick) 238 mg/dL (70-99) 82 mg/dL (70-99) Sodium Level 138 mmol/L (136-145) Potassium Level 4.5 mmol/L (3.5-5.1) Chloride Level 102 mmol/L (98-107) Carbon Dioxide Level 32 mmol/L (21-32) Anion Gap 4 (6-14) Blood Urea Nitrogen 50 mg/dL (7-20) Creatinine 5.1 mg/dL (0.6-1.0) Estimated GFR (Cockcroft-Gault) 9.8 Glucose Level 84 mg/dL (70-99) Calcium Level 6.6 mg/dL (8.5-10.1) White Blood Count 4.6 x10^3/uL (4.0-11.0) Red Blood Count 2.52 x10^6/uL (3.50-5.40) Hemoglobin 7.4 g/dL (12.0-15.5) Hematocrit 22.5 % (36.0-47.0) Mean Corpuscular Volume 90 fL (79-100) Mean Corpuscular Hemoglobin 30 pg (25-35) Mean Corpuscular Hemoglobin Concent 33 g/dL (31-37) Red Cell Distribution Width 17.5 % (11.5-14.5) Platelet Count 211 x10^3/uL (140-400) Neutrophils (%) (Auto) 69 % (31-73) Lymphocytes (%) (Auto) 17 % (24-48) Monocytes (%) (Auto) 13 % (0-9) Eosinophils (%) (Auto) 1 % (0-3) Basophils (%) (Auto) 1 % (0-3) Neutrophils # (Auto) 3.1 x10^3/uL (1.8-7.7) Lymphocytes # (Auto) 0.8 x10^3/uL (1.0-4.8) Monocytes # (Auto) 0.6 x10^3/uL (0.0-1.1) Eosinophils # (Auto) 0.1 x10^3/uL (0.0-0.7) Basophils # (Auto) 0.0 x10^3/uL (0.0-0.2) Test 04/06/20 11:10 Glucose (Fingerstick) 169 mg/dL (70-99) Laboratory Tests Test 04/05/20 12:11 04/05/20 20:57 04/06/20 06:40 04/06/20 07:04 Glucose (Fingerstick) 107 mg/dL (70-99) 238 mg/dL (70-99) 82 mg/dL (70-99) Sodium Level 138 mmol/L (136-145) Potassium Level 4.5 mmol/L (3.5-5.1) Chloride Level 102 mmol/L (98-107) Carbon Dioxide Level 32 mmol/L (21-32) Anion Gap 4 (6-14) Blood Urea Nitrogen 50 mg/dL (7-20) Creatinine 5.1 mg/dL (0.6-1.0) Estimated GFR (Cockcroft-Gault) 9.8 Glucose Level 84 mg/dL (70-99) Calcium Level 6.6 mg/dL (8.5-10.1) Test 04/06/20 07:35 04/06/20 11:10 White Blood Count 4.6 x10^3/uL (4.0-11.0) Red Blood Count 2.52 x10^6/uL (3.50-5.40) Hemoglobin 7.4 g/dL (12.0-15.5) Hematocrit 22.5 % (36.0-47.0) Mean Corpuscular Volume 90 fL (79-100) Mean Corpuscular Hemoglobin 30 pg (25-35) Mean Corpuscular Hemoglobin Concent 33 g/dL (31-37) Red Cell Distribution Width 17.5 % (11.5-14.5) Platelet Count 211 x10^3/uL (140-400) Neutrophils (%) (Auto) 69 % (31-73) Lymphocytes (%) (Auto) 17 % (24-48) Monocytes (%) (Auto) 13 % (0-9) Eosinophils (%) (Auto) 1 % (0-3) Basophils (%) (Auto) 1 % (0-3) Neutrophils # (Auto) 3.1 x10^3/uL (1.8-7.7) Lymphocytes # (Auto) 0.8 x10^3/uL (1.0-4.8) Monocytes # (Auto) 0.6 x10^3/uL (0.0-1.1) Eosinophils # (Auto) 0.1 x10^3/uL (0.0-0.7) Basophils # (Auto) 0.0 x10^3/uL (0.0-0.2) Glucose (Fingerstick) 169 mg/dL (70-99) Brief Hospital Course Ms. Michelle is a 84 old female who presented with substernal chest pain. Consultation placed to cardiology, nephrology, gastroenterology. Patient was cleared from a cardiac standpoint, and evaluated by GI for her history of anemia. She had a EGD performed that showed esophagitis and healing reflux. She was recommended PPI therapy on discharge. Stable for discharge on 04/06/2020 Discharge Information Condition at Discharge: Improved Follow Up: Weeks Disposition/Orders: D/C to Home w/ HH Scheduled Apixaban (Eliquis) 5 Mg Tablet, 10 MG PO DAILY for blood thinner for 7 Days, #14 (Reported) Entered as Reported by: GILLIAN LAZAR on 03/27/20 8164 Last Action: Reviewed on 03/29/201955 by EDMUND KRUGER MD Donepezil Hcl (Donepezil Hcl) 5 Mg Tablet, 5 MG PO QHS for , (Reported) Entered as Reported by: YUVAL BAUER RN on 03/03/201938 Last Action: Reviewed on 03/29/201955 by EDMUND KRUGER MD Ergocalciferol (Vitamin D2) (Vitamin D2) 1,250 Mcg Capsule, 1,250 MCG PO WEEKLY for , (Reported) Entered as Reported by: YUVAL BAUER RN on 03/03/201938 Last Action: Reviewed on 03/29/201955 by EDMUND KRUGER MD Folic Acid/Vitamin B Comp W-C (Sarahy-Angelia Tablet) 0.8 Mg Tablet, 1 TAB PO DAILY for FOR DIALYSIS PT for 30 Days, #30 Ref 0 (Reported) Entered as Reported by: Sara Acharya on 03/23/20 0118 Last Action: Reviewed on 03/29/201955 by EDMUND KRUGER MD Hydralazine Hcl (Hydralazine Hcl) 25 Mg Tablet, 1 TAB PO BID for hypertension, #90 Ref 5 (Reported) Entered as Reported by: SUKHDEV OLIVER on 08/04/19 0454 Last Action: Reviewed on 03/29/201955 by EDMUND KRUGER MD Omeprazole/Sodium Bicarbonate (Omeprazole-Bicarb 20-1,100 Cap) 1 Each Capsule, 1 CAP PO DAILY for esophagitis for 60 Days, #60 Ref 0 Prescribed by: EDMUND KRUGER MD on 04/06/20 1147 Ziprasidone Hcl (Ziprasidone Hcl) 20 Mg Capsule, 20 MG PO HS for bipolar, (Reported) Entered as Reported by: Jose Marinelli on 01/03/202112 Last Action: Reviewed on 03/29/201955 by EDMUND KRUGER MD Justicifation of Admission Dx: Justifications for Admission: Justification of Admission Dx: Yes CHF: Hemodynamic Instability EDMUND KRUGER MD Apr 06, 2020 12:02
--- NOTE | 2020-04-06 14:46 | NUR ---
Discharge Note: DENISE PAN [address] [place] [address] Discharge instructions and discharge home medications reviewed with Patient and a copy given. All questions have been answered and understanding verbalized. The following instructions and handouts were given: CP Discontinued Central Line Patient discharged to home with home health via wheelchair
--- NOTE | 2020-04-11 10:07 | PATHOLOGY ---
[facility] Accession Number: [id number] . 01 Material submitted: . stomach - GASTRIC ANTRUM BIOPSY . 01 Clinical history: . CHEST PAIN ANEMIA . 02 Diagnosis: Stomach "antrum", endoscopic biopsy: - Gastric antral and oxyntic mucosa with features of chronic gastritis. - Negative for active inflammation, intestinal metaplasia, dysplasia, and malignancy. - NEGATIVE for Helicobacter pylori. . (MLK:tyson; 04/11/2020) S 04/11/2020 0917 Local . 02 Electronically signed: . Corky Sanchez MD, Pathologist NPI- [id number] . 01 Gross description: . The specimen is received in formalin, labeled "Celina Miguel Angel, gastric antrum biopsy". Received is a segment of pale borrego soft tissue measuring 0.5 cm in maximum dimensions. The specimen is submitted entirely in cassette A1. ([facility]; 04/06/2020) QA/QA 04/06/2020 1035 Local . 02 Microscopic: . Immunohistochemical stain results: . Helicobacter pylori (block A1) - Negative for organisms . (MLK:tyson; 04/11/2020) . 02 Pathologist provided ICD-10: K29.50 . 02 CPT . 218916, [id number] Specimen Comment: A courtesy copy of this report has been sent to [phone], [phone] Specimen Comment: [id number] Specimen Comment: Report sent to / DR RIZVI Performed at: 01 [facility] [address], [place] [id number] MD Bharath Hahn MD Phone: [phone] Performed at: 02 [facility] [address] [id number] MD Jaylan Ricks MD Phone: [phone]
== END 2020-04-06 14:00 | disposition home health service (06) | DRG 391 ==
LOC: ER 12:30 → 2 SOUTH 14:21
PROVIDERS: ADMIT Family Medicine; ATTEND Family Medicine
PROC: 05HY33Z Insertion of Infusion Device into Upper Vein, Percutaneous Approach (ICD-10-PCS; 2020-03-30)
PROC: B54MZZA Ultrasonography of Right Upper Extremity Veins, Guidance (ICD-10-PCS; 2020-03-30)
PROC: B51M1ZA Fluoroscopy of Right Upper Extremity Veins using Low Osmolar Contrast, Guidance (ICD-10-PCS; 2020-03-30)
PROC: 30233N1 Transfusion of Nonautologous Red Blood Cells into Peripheral Vein, Percutaneous Approach (ICD-10-PCS; 2020-03-30)
PROC: 5A1D70Z Performance of Urinary Filtration, Intermittent, Less than 6 Hours Per Day (ICD-10-PCS; 2020-03-30)
PROC: 5A1D70Z Performance of Urinary Filtration, Intermittent, Less than 6 Hours Per Day (ICD-10-PCS; 2020-03-31)
PROC: 5A1D70Z Performance of Urinary Filtration, Intermittent, Less than 6 Hours Per Day (ICD-10-PCS; 2020-04-03)
PROC: 5A1D70Z Performance of Urinary Filtration, Intermittent, Less than 6 Hours Per Day (ICD-10-PCS; 2020-04-05)
PROC: 0DB68ZX Excision of Stomach, Via Natural or Artificial Opening Endoscopic, Diagnostic (ICD-10-PCS; principal; 2020-04-05 10:30)
DX: K21.0 Gastro-esophageal reflux disease with esophagitis (principal); N18.6 End stage renal disease; I50.33 Acute on chronic diastolic (congestive) heart failure; I13.2 Hypertensive heart and chronic kidney disease with heart failure and with stage 5 chronic kidney disease, or end stage renal disease; R07.89 Other chest pain; E78.5 Hyperlipidemia, unspecified; F41.9 Anxiety disorder, unspecified; F32.9 Major depressive disorder, single episode, unspecified; D63.8 Anemia in other chronic diseases classified elsewhere; E11.22 Type 2 diabetes mellitus with diabetic chronic kidney disease; Z20.828 Contact with and (suspected) exposure to other viral communicable diseases; E87.5 Hyperkalemia; Z90.710 Acquired absence of both cervix and uterus; Z90.11 Acquired absence of right breast and nipple; Z87.891 Personal history of nicotine dependence; Z88.2 Allergy status to sulfonamides; Z82.49 Family history of ischemic heart disease and other diseases of the circulatory system; Z79.01 Long term (current) use of anticoagulants; Z86.718 Personal history of other venous thrombosis and embolism; Z99.2 Dependence on renal dialysis
CPT/HCPCS: 36415; 36556; 43235; 71045; 76937; 77001; 78580; 80048; 80053; 82607; 82962; 83540; 83550; 83735; 83880; 84443; 84484; 85014; 85018; 85025; 85027; 85045; 85610; 86850; 86900; 86901; 86920; 87340; 87426; 88305; 88342; 93005; 93971; A9540; C1892; J0882; J2704; J3490; J7030; P9016; 99285-25; G0378; U0003-CS

== ENCOUNTER 2020-04-07 16:19 | Emergency (ER) | payer MEDICARE ==
[~2020-04-07] VITALS: Ht 167.6 cm; Wt 68.0 kg
[~2020-04-07 16:19] MED LIST changes: +OMEP1CAP24 PO
[2020-04-07 19:10] LABS: BASO % 1 % (0-3); EOS % 0 % (0-3); HEMATOCRIT 23.4 % (36.0-47.0); HEMOGLOBIN 7.8 g/dL (12.0-15.5); LYMPH # 0.6 x10^3/uL (1.0-4.8); LYMPH % 11 % (24-48); MEAN CORPUSCULAR HEMOGLOBIN 30 pg (25-35); MEAN CORPUSCULAR HGB CONC 33 g/dL (31-37); MEAN CORPUSCULAR VOLUME 90 fL (79-100); MONO # 0.4 x10^3/uL (0.0-1.1); MONO % 8 % (0-9); NEUT # 4.7 x10^3/uL (1.8-7.7); NEUT % 81 % (31-73); PLATELET COUNT 220 x10^3/uL (140-400); RED CELL DISTRIBUTION WIDTH 17.8 % (11.5-14.5); WHITE BLOOD COUNT 5.8 x10^3/uL (4.0-11.0)
[2020-04-07 19:17] LABS: CALCIUM 8.2 mg/dL (8.5-10.1); CREATININE 4.2 mg/dL (0.6-1.0); GFR 12.2; POTASSIUM 4.4 mmol/L (3.5-5.1)
--- NOTE | 2020-04-07 19:18 | RAD ---
CHEST AP ONLY History: Shortness of breath, dialysis Comparison: March 29, 2020 Findings: Single view of the chest is submitted. Pericardial cardiac silhouette is again enlarged. There is no pneumothorax or significant dependent pleural fluid. Accurate evaluation of the left lung base is limited due to the cardiac silhouette and there is questionable somewhat increased left base opacity, otherwise no new infiltrate identified by radiograph. There is atherosclerotic calcification near the aortic arch. Impression: 1. There is again enlargement of the pericardial cardiac silhouette which limits accurate evaluation left lung base, left base infiltrate difficult to exclude by this exam. Electronically signed by: Cuco Rodas MD (04/07/2020 7:14 PM) [facility]
[2020-04-07 19:19] LABS: PROTHROMBIN TIME PATIENT 14.5 SEC (11.7-14.0)
[2020-04-07 19:23] LABS: ALBUMIN 3.1 g/dL (3.4-5.0); ALBUMIN/GLOBULIN RATIO 1.1 (1.0-1.7); TOTAL BILIRUBIN 0.4 mg/dL (0.2-1.0); TOTAL PROTEIN 5.8 g/dL (6.4-8.2)
--- NOTE | 2020-04-07 20:34 | PHYS DOC ---
Past Medical History Past Medical History: Diabetes-Type II, Hypertension, Renal Disease Additional Past Medical Histor: dialysis Past Surgical History: Hysterectomy, Other Additional Past Surgical Histo: RIGHT MASTECTOMY, LEFT DIALYSIS FISTULA Smoking Status: Never Smoker Alcohol Use: None Drug Use: None General Adult EDM: Chief Complaint: OTHER COMPLAINTS HPI: HPI: The history was obtained from the a patient and daughter. Patient is a 84-year-old female with PMH ESRD who presents with a chief complaint of no complaints. Per daughter the dialysis clinic stated that the patient was complaining of pain all over while receiving dialysis. Daughter states the patient received almost 90% of her dialysis. Daughter is unclear of why the patient is at the hospital. Patient denies any pain related complaints. She denies chest pain, shortness of breath. She denies any abdominal pain. Denies vomiting. Daughter states that the patient does not make very much urine at baseline. Daughter notes that the patient was recently hospitalized and dis charged for facility yesterday for chest pain work-up. She states that she did have an EGD performed that was grossly unremarkable. Daughter also expresses concern that the patient makes his complaints for attention seeking behavior. At this time daughter and patient have no quinten concerns. Review of Systems: Review of Systems: Constitutional: Denies fever or chills. [] Eyes: Denies change in visual acuity. [] HENT: Denies nasal congestion or sore throat. [] Respiratory: Denies cough or shortness of breath. [] Cardiovascular: Denies chest pain or edema. [] GI: Denies abdominal pain, nausea, vomiting, bloody stools or diarrhea. [] : Denies dysuria. [] Musculoskeletal: Denies back pain or joint pain. [] Integument: Denies rash. [] Neurologic: Denies headache, focal weakness or sensory changes. [] Endocrine: Denies polyuria or polydipsia. [] Lymphatic: Denies swollen glands. [] Psychiatric: Denies depression or anxiety. [] Heart Score: Risk Factors: Risk Factors: DM, Current or recent (<one month) smoker, HTN, HLP, family history of CAD, obesity. Risk Scores: Score 0 - 3: 2.5% MACE over next 6 weeks - Discharge Home Score 4 - 6: 20.3% MACE over next 6 weeks - Admit for Clinical Observation Score 7 - 10: 72.7% MACE over next 6 weeks - Early Invasive Strategies Allergies: Allergies: Allergies Coded Allergies Type Severity Reaction Last Updated Verified Sulfa (Sulfonamide Antibiotics) Allergy Severe "Ashkan Ubaldo's disease" 04/05/20 Yes Physical Exam: PE: Constitutional: Well developed, well nourished, no acute distress, non-toxic appearance. [] HENT: Normocephalic, atraumatic, bilateral external ears normal, oropharynx moist, no oral exudates, nose normal. [] Eyes: PERRLA, EOMI, conjunctiva normal, no discharge. [] Neck: Normal range of motion, no tenderness, supple, no stridor. [] Cardiovascular:Heart rate regular rhythm, no murmur [] Lungs & Thorax: Bilateral breath sounds clear to auscultation [] Abdomen: soft, no tenderness, no masses, no pulsatile masses. [] Skin: Warm, dry, no erythema, no rash. [] Back: No tenderness, no CVA tenderness. [] Extremities: No tenderness, no cyanosis, no clubbing, ROM intact, no edema. [] Neurologic: Alert with intact cognitive function. No aphasia, dysarthria, or neglect. GCS 15. Pupils 3 mm briskly reactive b/l. No APD present. Cranial nerves 2-12 grossly intact; no facial asymmetry present, tongue midline, shoulder shrugging strength intact. Strength 5/5 and symmetric throughout. Light touch sensation intact throughout. Cerebellar testing appropriate without evidence of dysdiadochokinesia. DTR's 2+ in all 4 extremities. Negative pronator drift bilaterally. Psychologic: Affect normal, judgement normal, mood normal. [] Current Patient Data: Labs: Laboratory Tests Test 04/07/20 18:45 White Blood Count 5.8 x10^3/uL (4.0-11.0) Red Blood Count 2.60 x10^6/uL (3.50-5.40) L Hemoglobin 7.8 g/dL (12.0-15.5) L Hematocrit 23.4 % (36.0-47.0) L Mean Corpuscular Volume 90 fL (79-100) Mean Corpuscular Hemoglobin 30 pg (25-35) Mean Corpuscular Hemoglobin Concent 33 g/dL (31-37) Red Cell Distribution Width 17.8 % (11.5-14.5) H Platelet Count 220 x10^3/uL (140-400) Neutrophils (%) (Auto) 81 % (31-73) H Lymphocytes (%) (Auto) 11 % (24-48) L Monocytes (%) (Auto) 8 % (0-9) Eosinophils (%) (Auto) 0 % (0-3) Basophils (%) (Auto) 1 % (0-3) Neutrophils # (Auto) 4.7 x10^3/uL (1.8-7.7) Lymphocytes # (Auto) 0.6 x10^3/uL (1.0-4.8) L Monocytes # (Auto) 0.4 x10^3/uL (0.0-1.1) Eosinophils # (Auto) 0.0 x10^3/uL (0.0-0.7) Basophils # (Auto) 0.0 x10^3/uL (0.0-0.2) Prothrombin Time 14.5 SEC (11.7-14.0) H Prothrombin Time INR 1.2 (0.8-1.1) H Sodium Level 137 mmol/L (136-145) Potassium Level 4.4 mmol/L (3.5-5.1) Chloride Level 101 mmol/L (98-107) Carbon Dioxide Level 27 mmol/L (21-32) Anion Gap 9 (6-14) Blood Urea Nitrogen 35 mg/dL (7-20) H Creatinine 4.2 mg/dL (0.6-1.0) H Estimated GFR (Cockcroft-Gault) 12.2 BUN/Creatinine Ratio 8 (6-20) Glucose Level 120 mg/dL (70-99) H Calcium Level 8.2 mg/dL (8.5-10.1) L Total Bilirubin 0.4 mg/dL (0.2-1.0) Aspartate Amino Transferase (AST) 19 U/L (15-37) Alanine Aminotransferase (ALT) 22 U/L (14-59) Alkaline Phosphatase 63 U/L (46-116) Troponin I Quantitative 0.074 ng/mL (0.000-0.055) Total Protein 5.8 g/dL (6.4-8.2) L Albumin 3.1 g/dL (3.4-5.0) L Albumin/Globulin Ratio 1.1 (1.0-1.7) Lipase 147 U/L (73-393) Laboratory Tests 04/07/20 18:45 Laboratory Tests 04/07/20 18:45 Vital Signs: Vital Signs Date Time Temp Pulse Resp B/P (MAP) Pulse Ox O2 Delivery O2 Flow Rate FiO2 04/07/20 18:32 98.6 62 16 141/49 (79) 100 Room Air 98.6 EKG: EKG: EKG consistent with normal sinus rhythm. Ventricular to 78 beats per minute. Left axis noted. Left anterior fascicular block present. ST flattening noted in the lateral precordial leads. Similar to EKG from March 29, 2020. [] Radiology/Procedures: Radiology/Procedures: [] Course & Med Decision Making: Course & Med Decision Making Pertinent Labs and Imaging studies reviewed. (See chart for details) Patient is an 84-year-old female who presents with no complaints. Basic work-up was obtained and was grossly unremarkable. Chemistry panel consistent with CKD. Potassium normal. She does have a detectable troponin in the setting of ESRD. This does appear consistent with previous labs. EKG without ischemic changes. Chest x-ray overall nonacute. There was note of potential left lower lobe infiltrate however the patient has no hypoxia, abnormal lung sounds, fever, or leukocytosis. I do not feel this is infectious related but likely volume related secondary to her ESRD status. Per chart review patient did recently have an EGD performed that revealed esophagitis. At this time patient is requesting discharge home. Daughter is also requesting this. I did engage them and lengthy discussion regarding results of labs and imaging and potential for hospitalization to facilitate placement for potential rehabilitation given multiple admissions recently. Daughter states that they have been in contact with social work and she needs to speak with her brother who arrives in town in 4 days regarding placement for the patient. Furthermore patient does have home health nurse who will check on her daily over the weekend and days when she is not at dialysis. Daughter does feel comfortable taking the patient home. Didi ent is also requesting this. Utilizing shared decision making patient will be discharged home. Return precautions discussed and understood. Stable for discharge home Brittany Disclaimer: Brittany Disclaimer: This electronic medical record was generated, in whole or in part, using a voice recognition dictation system. Departure Departure Impression: Primary Impression: Well adult health check Disposition: 01 HOME, SELF-CARE Condition: STABLE Referrals: DELTA RIZVI MD (PCP) Patient Instructions: End Stage Kidney Disease Additional Instructions: Please follow-up with your primary care physician in the next 2 to 3 days. Please return the emergency department at any time should you have concerns. Justicifation of Admission Dx: Justifications for Admission: Justification of Admission Dx: N/A NEIL CARVAJAL DO Apr 07, 2020 20:34
[2020-04-07 21:16] VITALS: BP 161/86
--- NOTE | 2020-04-10 11:05 | EKG ---
[facility] [address] [place] [address] Test Date: 2020-04-07 Test Time: 21:03:04 Pat Name: DENISE PAN Department: Room: Gender: F Body Team Member: : [id number] Requested By: NEIL CARVAJAL Order Number: [id number] Reading MD: Measurements Intervals Prospect Rate: 78 P: 0 AL: 210 QRS: -44 QRSD: 118 T: 52 QT: 442 QTc: 508 Interpretive Statements SINUS RHYTHM ATRIAL PREMATURE COMPLEX(ES) ABNORMAL LEFT AXIS DEVIATION LEFT ANTERIOR FASCICULAR BLOCK QRS(T) CONTOUR ABNORMALITY CONSISTENT WITH ANTEROSEPTAL INFARCT AGE UNDETERMINED ABNORMAL ECG RI6.02 No previous ECG available for comparison
== END 2020-04-07 21:30 | disposition home or self-care (01) ==
LOC: ER 16:19
DX: R07.89 Other chest pain (principal); R20.2 Paresthesia of skin; E11.9 Type 2 diabetes mellitus without complications; I10 Essential (primary) hypertension; Z90.710 Acquired absence of both cervix and uterus; Z90.89 Acquired absence of other organs; Z98.890 Other specified postprocedural states; Z88.2 Allergy status to sulfonamides
CPT/HCPCS: 36415; 71045; 80053; 83690; 84484; 85025; 85610; 93005; 99285

== ENCOUNTER 2020-04-09 22:06 | Inpatient (IN) | payer MEDICARE ==
[~2020-04-09] VITALS: Ht 162.6 cm; Wt 77.5 kg
[2020-04-09 22:41] LABS: BASO # 0.1 x10^3/uL (0.0-0.2); BASO % 1 % (0-3); EOS # 0.1 x10^3/uL (0.0-0.7); EOS % 1 % (0-3); LYMPH % 18 % (24-48); MEAN CORPUSCULAR HEMOGLOBIN 30 pg (25-35); MEAN CORPUSCULAR HGB CONC 33 g/dL (31-37); MEAN CORPUSCULAR VOLUME 91 fL (79-100); MONO # 0.6 x10^3/uL (0.0-1.1); MONO % 12 % (0-9); NEUT # 3.8 x10^3/uL (1.8-7.7); NEUT % 68 % (31-73); PLATELET COUNT 242 x10^3/uL (140-400); RED BLOOD COUNT 2.16 x10^6/uL (3.50-5.40); WHITE BLOOD COUNT 5.6 x10^3/uL (4.0-11.0)
[2020-04-09 22:43] LABS: HEMATOCRIT 19.5 % (36.0-47.0); HEMOGLOBIN 6.4 g/dL (12.0-15.5)
--- NOTE | 2020-04-09 22:46 | PHYS DOC ---
Past Medical History Past Medical History: Diabetes-Type II, Hypertension, Renal Disease Additional Past Medical Histor: dialysis Past Surgical History: Hysterectomy, Other Additional Past Surgical Histo: RIGHT MASTECTOMY, LEFT DIALYSIS FISTULA Smoking Status: Never Smoker Alcohol Use: None Drug Use: None General Adult EDM: Chief Complaint: UPPER EXTREMITY PAIN HPI: HPI: The history was obtained from the patient and daughter and EMS. Patient is a 84-year-old female with PMH ESRD, hypertension, hyperlipidemia, diabetes who presents with a chief complaint of not being able to move. When interviewing the patient she states she has no complaints. She states that she does not know why she is here. She states that her daughter try to get rid of her. She states that she feels perfectly fine and has no complaints. Per EMS they were called to the patient's house for her being unable to move. They state upon arrival the patient was moving all 4 extremities appropriately and did ambulate with some minor assistance. They state they did note some swelling to the left upper extremity. Upon arrival daughter states that the patient began complaining of inability to move approximately 30 minutes prior to arrival. Daughter states the patient never had verbal arguments all day. She does note that she was hospitalized approximately 5 days ago for chest pain. She was discharged and was seen in the emergency department 2 days later for generalized weakness. She was discharged home. She does have home health care who was checked on her once last week and will check on her again this week. She does receive dialysis Mondays, Wednesdays, and Fridays. Daughter denies any recent missed dialysis treatments. Daughter states that her brother arrives in town in 2 days to discuss long-term plans for her mother. Daughter states she does have some concern about their ability to care for at home. Daughter denies any formal diagnosis of dementia however the patient does take donepezil. Daughter denies any recent falls or head trauma. Daughter denies any other issues. She does state that the patient does exhibit attention seeking behavior in her opinion. No other complaints. Review of Systems: Review of Systems: Constitutional: Denies fever or chills. [] Eyes: Denies change in visual acuity. [] HENT: Denies nasal congestion or sore throat. [] Respiratory: Denies cough or shortness of breath. [] Cardiovascular: Denies chest pain or edema. [] GI: Denies abdominal pain, nausea, vomiting, bloody stools or diarrhea. [] : Denies dysuria. [] Musculoskeletal: Denies back pain or joint pain. [] Integument: Denies rash. [] Neurologic: Denies headache, focal weakness or sensory changes. [] Endocrine: Denies polyuria or polydipsia. [] Lymphatic: Denies swollen glands. [] Psychiatric: Denies depression or anxiety. [] Heart Score: Risk Factors: Risk Factors: DM, Current or recent (<one month) smoker, HTN, HLP, family history of CAD, obesity. Risk Scores: Score 0 - 3: 2.5% MACE over next 6 weeks - Discharge Home Score 4 - 6: 20.3% MACE over next 6 weeks - Admit for Clinical Observation Score 7 - 10: 72.7% MACE over next 6 weeks - Early Invasive Strategies Allergies: Allergies: Allergies Coded Allergies Type Severity Reaction Last Updated Verified Sulfa (Sulfonamide Antibiotics) Allergy Severe "Ashkan Ubaldo's disease" 04/05/20 Yes Physical Exam: PE: Constitutional: Well developed, well nourished, no acute distress, non-toxic appearance. [] HENT: Normocephalic, atraumatic, bilateral external ears normal, oropharynx moist, no oral exudates, nose normal. [] Eyes: PERRLA, EOMI, conjunctiva normal, no discharge. [] Neck: Normal range of motion, no tenderness, supple, no stridor. [] Cardiovascular: Left upper extremity fistula with palpable thrill and audible bruit. Lungs & Thorax: Bilateral breath sounds clear to auscultation [] Abdomen: Bowel sounds normal, soft, no tenderness, no masses, no pulsatile masses. [] Skin: Warm, dry, no erythema, no rash. [] Back: No tenderness, no CVA tenderness. [] Extremities: No tenderness, no cyanosis, no clubbing, ROM intact, no edema. [] Neurologic: alert and oriented to person and place. Baseline. No aphasia, dysarthria, or neglect. GCS 14. Pupils 3 mm briskly reactive b/l. No APD pr esent. Cranial nerves 2-12 grossly intact; no facial asymmetry present, tongue midline, shoulder shrugging strength intact. Strength 5/5 and symmetric throughout. Light touch sensation intact throughout. Cerebellar testing appropriate without evidence of dysdiadochokinesia. DTR's 2+ in all 4 extremities. Negative pronator drift bilaterally. Gait [] Psychologic: Affect normal, judgement normal, mood normal. [] Current Patient Data: Labs: Laboratory Tests Test 04/09/20 22:35 White Blood Count 5.6 x10^3/uL Red Blood Count 2.16 x10^6/uL Hemoglobin 6.4 g/dL Hematocrit 19.5 % Mean Corpuscular Volume 91 fL Mean Corpuscular Hemoglobin 30 pg Mean Corpuscular Hemoglobin Concent 33 g/dL Red Cell Distribution Width 18.0 % Platelet Count 242 x10^3/uL Neutrophils (%) (Auto) 68 % Lymphocytes (%) (Auto) 18 % Monocytes (%) (Auto) 12 % Eosinophils (%) (Auto) 1 % Basophils (%) (Auto) 1 % Neutrophils # (Auto) 3.8 x10^3/uL Lymphocytes # (Auto) 1.0 x10^3/uL Monocytes # (Auto) 0.6 x10^3/uL Eosinophils # (Auto) 0.1 x10^3/uL Basophils # (Auto) 0.1 x10^3/uL Sodium Level 139 mmol/L Potassium Level 5.0 mmol/L Chloride Level 102 mmol/L Carbon Dioxide Level 26 mmol/L Anion Gap 11 Blood Urea Nitrogen 82 mg/dL Creatinine 7.1 mg/dL Estimated GFR (Cockcroft-Gault) 6.7 BUN/Creatinine Ratio 12 Glucose Level 132 mg/dL Calcium Level 7.2 mg/dL Magnesium Level 2.3 mg/dL Total Bilirubin 0.3 mg/dL Aspartate Amino Transf (AST/SGOT) 22 U/L Alanine Aminotransferase (ALT/SGPT) 23 U/L Alkaline Phosphatase 53 U/L Total Protein 5.8 g/dL Albumin 2.9 g/dL Albumin/Globulin Ratio 1.0 Vital Signs: Vital Signs Date Time Temp Pulse Resp B/P (MAP) Pulse Ox O2 Delivery O2 Flow Rate FiO2 04/09/20 22:10 98.3 83 14 171/72 (105) 100 Room Air 98.3 EKG: EKG: [] Radiology/Procedures: Radiology/Procedures: [facility] [address] [place] [address] IMAGING REPORT Signed PATIENT: DENISE PAN ACCOUNT: [id number] : 1935 LOCATION: ER AGE: 84 SEX: F EXAM STATUS: PRE ER ORD. PHYSICIAN: NEIL CARVAJAL DO REASON: eval for thrombosed LUE fistula PROCEDURE: UPPER EXT ARTERIAL LEFT INDICATION: Reason: eval for thrombosed LUE fistula / Spl. Instructions: / History: . Left arm swelling COMPARISON: March 22, 2020 FINDINGS: Color and spectral Doppler ultrasound images are obtained of the left arm fistula. The left arm fistula is patent with velocity of 150-216 cm/S. IMPRESSION: * Patent left arm fistula. Electronically signed by: Roman Chan MD (04/09/2020 11:49 PM) [id number] DICTATED and SIGNED BY: ROMAN CHAN MD DATE: 04/09/202348 [facility] [address] [place], [place] [id number] IMAGING REPORT Signed PATIENT: DENISE PAN ACCOUNT: [id number] : 1935 LOCATION: ER AGE: 84 SEX: F EXAM STATUS: PRE ER ORD. PHYSICIAN: NEIL CARVAJAL DO REASON: eval for thrombosed LUE fistula PROCEDURE: UPPER EXT ARTERIAL LEFT INDICATION: Reason: eval for thrombosed LUE fistula / Spl. Instructions: / History: . Left arm swelling COMPARISON: March 22, 2020 FINDINGS: Color and spectral Doppler ultrasound images are obtained of the left arm fistula. The left arm fistula is patent with velocity of 150-216 cm/S. IMPRESSION: * Patent left arm fistula. Electronically signed by: Roman Chan MD (04/09/2020 11:49 PM) [id number] DICTATED and SIGNED BY: ROMAN CHAN MD DATE: 04/09/20 930 [] Course & Med Decision Making: Course & Med Decision Making Pertinent Labs and Imaging studies reviewed. (See chart for details) Patient is an 84-year-old female who presents to the emergency department for concern for inability to move. Daughter states the patient was complaining that she was too weak to move. However the patient denies any complaints and thinks her daughters try to get rid of her. She does have multiple hospitalizations and emergency department presentations over the past 2 weeks. Labs do show anemia of 6.4. Likely secondary to chronic disease. She will be given 1 unit packed red blood cells. Left upper extremity fistula ultrasound shows patent fistula. 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 She is currently taking Eliquis for this. Electrolytes within normal limits. I do feel the patient would benefit from hospitalization for her anemia of chronic disease but also for case management evaluation and potential placement or home health resources as the patient does have multiple recent hospitalizations. Family is agreeable to hospitalization. Dragon Disclaimer: Dragon Disclaimer: This electronic medical record was generated, in whole or in part, using a voice recognition dictation system. Departure Departure Impression: Primary Impression: Anemia of chronic disease Additional Impressions: Malnutrition Qualified Codes: E46 - Unspecified protein-calorie malnutrition ESRD (end stage renal disease) Adult failure to thrive Disposition: HOME, SELF-CARE Condition: STABLE Referrals: DELTA RIZVI MD (PCP) Justicifation of Admission Dx: Justifications for Admission: Justification of Admission Dx: Yes Comments: Anemia of chronic disease, ESRD, adult failure to thrive, malnutrition NEIL CARVAJAL DO Apr 09, 2020 22:46
[2020-04-09 22:47] LABS: CALCIUM 7.2 mg/dL (8.5-10.1); CREATININE 7.1 mg/dL (0.6-1.0); GFR 6.7
[2020-04-09 22:53] LABS: ALBUMIN 2.9 g/dL (3.4-5.0); MAGNESIUM 2.3 mg/dL (1.8-2.4); TOTAL BILIRUBIN 0.3 mg/dL (0.2-1.0); TOTAL PROTEIN 5.8 g/dL (6.4-8.2)
[2020-04-09 23:38] LABS: PROTHROMBIN TIME PATIENT 18.7 SEC (11.7-14.0)
--- NOTE | 2020-04-09 23:51 | RAD ---
INDICATION: Reason: eval for thrombosed LUE fistula / Spl. Instructions: / History: . Left arm swelling COMPARISON: March 22, 2020 FINDINGS: Color and spectral Doppler ultrasound images are obtained of the left arm fistula. The left arm fistula is patent with velocity of 150-216 cm/S. IMPRESSION: * Patent left arm fistula. Electronically signed by: Carlos Conner MD (04/09/2020 11:49 PM) [id number]
--- NOTE | 2020-04-09 23:54 | RAD ---
INDICATION: Reason: eval for thrombosed LUE fistula / Spl. Instructions: / History: . Arm swelling COMPARISON: March 31, 2020 TECHNIQUE: Grayscale, color and doppler ultrasound images were obtained of the left upper extremity venous vasculature. No thrombus identified in the subclavian, axillary, brachial, basilic, cephalic, radial or ulnar veins. Partial thrombus of jugular again seen. Edema of soft tissues. The old fistula is again thrombosed. IMPRESSION: 1. Partial thrombus of the left internal jugular vein is again seen without major change. Electronically signed by: Carlos Conner MD (04/09/2020 11:51 PM) [id number]
[2020-04-10] VITALS (10 sets, daily range): BP systolic 126–168; BP diastolic 34–68
[2020-04-10] MEDS ORDERED: ONDANSETRON PF 4 MG/2 ML VIAL. IV PRN (00:15)
--- NOTE | 2020-04-10 08:23 | PDOC1 ---
History and Physical Date of Admission Date of Admission DATE: 04/10/20 TIME: 08:05 Identification/Chief Complaint Chief Complaint Weakness Problems: (1) ESRD (end stage renal disease) (2) Malnutrition (3) Anemia of chronic disease (4) FTT (failure to thrive) in adult Source Source: Chart review, Patient History of Present Illness History of Present Illness Patient is an 84-year-old female with past medical history of end-stage renal disease on hemodialysis M/W/F, who was recently discharged from our service, who presents for evaluation of weakness. Patient states she lives at home with her daughter and granddaughter and she is unsure why she is here in the hospital. She does admit to feeling slightly weak today, worse than previous days. She denies any chest pain she denies any shortness of breath. She does appear slightly confused but she is able to admit to me that she has her own decision- making capacity. Much of the further history was obtained from chart review. Past Medical History Cardiovascular: HTN Heme/Onc: Anemia NOS Renal/: Chronic renal insuff Past Surgical History Past Surgical History: Other Family History Family History: Hypertension Social History Smoke: No ALCOHOL: none Drugs: None Current Problem List Problem List Problems Medical Problems: (1) Adult failure to thrive Status: Acute (2) Anemia of chronic disease Status: Acute (3) Malnutrition Status: Acute Current Medications Current Medications Current Medications Ondansetron HCl (Zofran) 4 mg PRN Q8HRS PRN IV NAUSEA/VOMITING 1ST CHOICE; Start 04/10/20 at 00:15; Stop 04/11/20 at 00:14 Donepezil HCl (Aricept) 5 mg QHS PO ; Start 04/10/20 at 21:00 Vitamin B Complex/ Vitamin C (Sarahy-Angelia) 1 tab DAILY PO ; Start 04/10/20 at 09:00 Hydralazine HCl (Apresoline) 25 mg BID PO ; Start 04/10/20 at 09:00 Ziprasidone (Geodon) 20 mg HS PO ; Start 04/10/20 at 21:00 Pantoprazole Sodium (Protonix) 40 mg DAILYAC PO ; Start 04/11/20 at 07:30 Apixaban (Eliquis) 2.5 mg BID PO ; Start 04/10/20 at 09:00; Status UNV Active Scripts Active Omeprazole-Bicarb 20-1,100 Cap (Omeprazole/Sodium Bicarbonate) 1 Each Capsule 1 Cap PO DAILY 60 Days Reported Eliquis (Apixaban) 5 Mg Tablet 10 Mg PO DAILY 7 Days Sarahy-Angelia Tablet (Folic Acid/Vitamin B Comp W-C) 0.8 Mg Tablet 1 Tab PO DAILY 30 Days Vitamin D2 (Ergocalciferol (Vitamin D2)) 1,250 Mcg Capsule 1,250 Mcg PO WEEKLY Donepezil Hcl 5 Mg Tablet 5 Mg PO QHS Ziprasidone Hcl 20 Mg Capsule 20 Mg PO HS Hydralazine Hcl 25 Mg Tablet 1 Tab PO BID Allergies Allergies: Coded Allergies: Sulfa (Sulfonamide Antibiotics) (Verified Allergy, Severe, "Ashkan Ofelia n's disease", 04/05/20) ROS General: YES: Fatigue; No: Chills PSYCHOLOGICAL ROS: No: Anxiety, Depression Eyes: No Blurry vision, No Loss of vision HEENT: No: Heacaches, Sore Throat ALLERGY AND IMMUNOLOGY: No: Itchy/Watery Eyes, Nasal Congestion Hematological and Lymphatic: No: Bleeding Problems, Brusing Respiratory: No: Cough, Shortness of breath Cardiovascular: No Chest Pain, No Palpitations Gastrointestinal: No Nausea, No Vomiting, No Abdominal Pain Genitourinary: No Discharge, No Pain Musculoskeletal: Yes Muscular Weakness; No Joint Pain, No Joint Stiffness, No Muscle Pain Neurological: No Dizziness, No Tremors Skin: No Dry Skin, No Rash Physical Exam General: Alert, Oriented X3, Cooperative, No acute distress HEENT: PERRLA Lungs: Clear to auscultation, Normal air movement Heart: RRR, no jug vein distention Cardiovascular: S1, S2 Abdomen: Normal bowel sounds, No tenderness Extremities: No clubbing, No cyanosis Skin: No rashes, No breakdown Neuro: Normal tone, Other (strength 4/5 in upper extremities, 3/5 in lower extremities) Psych/Mental Status: Mental status NL Vitals Vitals Vital Signs Date Time Temp Pulse Resp B/P (MAP) Pulse Ox O2 Delivery O2 Flow Rate FiO2 04/10/20 04:55 98.2 82 20 135/40 98.2 04/10/20 02:03 100 Room Air Labs Labs Laboratory Tests Test 04/09/20 22:35 04/10/20 07:51 White Blood Count 5.6 x10^3/uL (4.0-11.0) Red Blood Count 2.16 x10^6/uL (3.50-5.40) Hemoglobin 6.4 g/dL (12.0-15.5) Hematocrit 19.5 % (36.0-47.0) Mean Corpuscular Volume 91 fL (79-100) Mean Corpuscular Hemoglobin 30 pg (25-35) Mean Corpuscular Hemoglobin Concent 33 g/dL (31-37) Red Cell Distribution Width 18.0 % (11.5-14.5) Platelet Count 242 x10^3/uL (140-400) Neutrophils (%) (Auto) 68 % (31-73) Lymphocytes (%) (Auto) 18 % (24-48) Monocytes (%) (Auto) 12 % (0-9) Eosinophils (%) (Auto) 1 % (0-3) Basophils (%) (Auto) 1 % (0-3) Neutrophils # (Auto) 3.8 x10^3/uL (1.8-7.7) Lymphocytes # (Auto) 1.0 x10^3/uL (1.0-4.8) Monocytes # (Auto) 0.6 x10^3/uL (0.0-1.1) Eosinophils # (Auto) 0.1 x10^3/uL (0.0-0.7) Basophils # (Auto) 0.1 x10^3/uL (0.0-0.2) Prothrombin Time 18.7 SEC (11.7-14.0) Prothromb Time International Ratio 1.6 (0.8-1.1) Sodium Level 139 mmol/L (136-145) Potassium Level 5.0 mmol/L (3.5-5.1) Chloride Level 102 mmol/L (98-107) Carbon Dioxide Level 26 mmol/L (21-32) Anion Gap 11 (6-14) Blood Urea Nitrogen 82 mg/dL (7-20) Creatinine 7.1 mg/dL (0.6-1.0) Estimated GFR (Cockcroft-Gault) 6.7 BUN/Creatinine Ratio 12 (6-20) Glucose Level 132 mg/dL (70-99) Calcium Level 7.2 mg/dL (8.5-10.1) Magnesium Level 2.3 mg/dL (1.8-2.4) Total Bilirubin 0.3 mg/dL (0.2-1.0) Aspartate Amino Transf (AST/SGOT) 22 U/L (15-37) Alanine Aminotransferase (ALT/SGPT) 23 U/L (14-59) Alkaline Phosphatase 53 U/L (46-116) Total Protein 5.8 g/dL (6.4-8.2) Albumin 2.9 g/dL (3.4-5.0) Albumin/Globulin Ratio 1.0 (1.0-1.7) Glucose (Fingerstick) 114 mg/dL (70-99) Laboratory Tests Test 04/09/20 22:35 04/10/20 07:51 White Blood Count 5.6 x10^3/uL (4.0-11.0) Red Blood Count 2.16 x10^6/uL (3.50-5.40) Hemoglobin 6.4 g/dL (12.0-15.5) Hematocrit 19.5 % (36.0-47.0) Mean Corpuscular Volume 91 fL (79-100) Mean Corpuscular Hemoglobin 30 pg (25-35) Mean Corpuscular Hemoglobin Concent 33 g/dL (31-37) Red Cell Distribution Width 18.0 % (11.5-14.5) Platelet Count 242 x10^3/uL (140-400) Neutrophils (%) (Auto) 68 % (31-73) Lymphocytes (%) (Auto) 18 % (24-48) Monocytes (%) (Auto) 12 % (0-9) Eosinophils (%) (Auto) 1 % (0-3) Basophils (%) (Auto) 1 % (0-3) Neutrophils # (Auto) 3.8 x10^3/uL (1.8-7.7) Lymphocytes # (Auto) 1.0 x10^3/uL (1.0-4.8) Monocytes # (Auto) 0.6 x10^3/uL (0.0-1.1) Eosinophils # (Auto) 0.1 x10^3/uL (0.0-0.7) Basophils # (Auto) 0.1 x10^3/uL (0.0-0.2) Prothrombin Time 18.7 SEC (11.7-14.0) Prothromb Time International Ratio 1.6 (0.8-1.1) Sodium Level 139 mmol/L (136-145) Potassium Level 5.0 mmol/L (3.5-5.1) Chloride Level 102 mmol/L (98-107) Carbon Dioxide Level 26 mmol/L (21-32) Anion Gap 11 (6-14) Blood Urea Nitrogen 82 mg/dL (7-20) Creatinine 7.1 mg/dL (0.6-1.0) Estimated GFR (Cockcroft-Gault) 6.7 BUN/Creatinine Ratio 12 (6-20) Glucose Level 132 mg/dL (70-99) Calcium Level 7.2 mg/dL (8.5-10.1) Magnesium Level 2.3 mg/dL (1.8-2.4) Total Bilirubin 0.3 mg/dL (0.2-1.0) Aspartate Amino Transf (AST/SGOT) 22 U/L (15-37) Alanine Aminotransferase (ALT/SGPT) 23 U/L (14-59) Alkaline Phosphatase 53 U/L (46-116) Total Protein 5.8 g/dL (6.4-8.2) Albumin 2.9 g/dL (3.4-5.0) Albumin/Globulin Ratio 1.0 (1.0-1.7) Glucose (Fingerstick) 114 mg/dL (70-99) VTE Prophylaxis Ordered VTE Prophylaxis Devices: Yes VTE Pharmacological Prophylaxi: Contraindicated Assessment/Plan Assessment/Plan Acute on chronic anemia Malnutrition End-stage renal disease on hemodialysis Nonocclusive DVT in left internal jugular vein Hypocalcemia Plan: Patient with recently discharged from our service after evaluation for chest pain. She was noted to have an occlusive DVT in her left internal jugular vein. Repeat ultrasound on 04/09/2020 shows possible improvement of left i nterval jugular vein thrombus. Patient was transfused 1 unit of packed red blood cells for hemoglobin 6.4, likely related to her anemia of chronic disease. Consults to nephrology to continue hemodialysis. Will resume patient's renally dosed Eliquis. I believe there is some concern for daughter's ability to care for patient at home, and long-term inpatient detention care might be in her best interest. PT/OT. Full code. Justifications for Admission Other Justification Problem Qualifiers (1) Malnutrition: Malnutrition type: unspecified type Qualified Codes: E46 - Unspecified protein-calorie malnutrition EDMUND KRUGER MD Apr 10, 2020 08:22
[2020-04-10] MEDS: hydrALAZINE 25 MG TABLET PO SCH ×2 (09:47→20:27)
[2020-04-10] MEDS: FOLIC/VIT B COMP W-C (RENAL) TABLET. PO SCH (09:47)
[2020-04-10] MEDS: APIXABAN 5 MG TABLET. PO SCH ×2 (09:47→20:28)
--- NOTE | 2020-04-10 10:06 | PDOC2 ---
CONSULT Date of Consult Date of Consult DATE: 04/10/20 TIME: 10:06 Reason for Consult Reason for Consult: ESRD Identification/Chief Complaint Chief Complaint "I dont know why I am back, I was just here " Source Source: Chart review, Patient History of Present Illness Reason for Visit: Patient is an 84-year-old AAF female with history of end-stage renal disease on hemodialysis M/W/F, who was recently discharged from our service, who presents for evaluation of weakness. Patient states she lives at home with her daughter and granddaughter and she is unsure why she is here in the hospital. She denies any chest pain she denies any shortness of breath. She has baseline dementia . Denies any N/V/D. No abdominal pain. No GI bleed . No f/c or cough Past Medical History Cardiovascular: HTN Heme/Onc: Anemia NOS Renal/: Chronic renal insuff Past Surgical History Past Surgical History: Other Family History Family History: Hypertension Social History No ALCOHOL: none Drugs: None Lives: with Family Current Problem List Problem List Problems Medical Problems: (1) Adult failure to thrive Status: Acute (2) Anemia of chronic disease Status: Acute (3) Malnutrition Status: Acute Current Medications Current Medications Current Medications Ondansetron HCl (Zofran) 4 mg PRN Q8HRS PRN IV NAUSEA/VOMITING 1ST CHOICE; Start 04/10/20 at 00:15; Stop 04/11/20 at 00:14 Donepezil HCl (Aricept) 5 mg QHS PO ; Start 04/10/20 at 21:00 Vitamin B Complex/ Vitamin C (Sarahy-Angelia) 1 tab DAILY PO Last administered on 04/10/20at 09:47; Start 04/10/20 at 09:00 Hydralazine HCl (Apresoline) 25 mg BID PO Last administered on 04/10/20at 09:47; Start 04/10/20 at 09:00 Ziprasidone (Geodon) 20 mg HS PO ; Start 04/10/20 at 21:00 Pantoprazole Sodium (Protonix) 40 mg DAILYAC PO ; Start 04/11/20 at 07:30 Apixaban (Eliquis) 2.5 mg BID PO Last administered on 04/10/20at 09:47; Start 04/10/20 at 09:00 Active Scripts Active Omeprazole-Bicarb 20-1,100 Cap (Omeprazole/Sodium Bicarbonate) 1 Each Capsule 1 Cap PO DAILY 60 Days Reported Eliquis (Apixaban) 5 Mg Tablet 10 Mg PO DAILY 7 Days Sarahy-Angelia Tablet (Folic Acid/Vitamin B Comp W-C) 0.8 Mg Tablet 1 Tab PO DAILY 30 Days Vitamin D2 (Ergocalciferol (Vitamin D2)) 1,250 Mcg Capsule 1,250 Mcg PO WEEKLY Donepezil Hcl 5 Mg Tablet 5 Mg PO QHS Ziprasidone Hcl 20 Mg Capsule 20 Mg PO HS Hydralazine Hcl 25 Mg Tablet 1 Tab PO BID Allergies Allergies: Coded Allergies: Sulfa (Sulfonamide Antibiotics) (Verified Allergy, Severe, "Ashkan Ubaldo's disease", 04/05/20) ROS Review of System Per HPI , rest of the ROS is negative Physical Exam Physical Exam General Appearance: no apparent distress, HEEN OM moist Neck Supple Skin: No rash Respiratory: decreased breath sounds at bases, Non labored Heart: S1S2 Abdomen: soft, bowel sounds present Genitourinary: No houser Extremities: No LE edema Neurology: baseline dementia No houser Vital Signs Vital Signs Date Time Temp Pulse Resp B/P (MAP) Pulse Ox O2 Delivery O2 Flow Rate FiO2 04/10/20 09:47 87 146/49 04/10/20 07:00 98.2 21 95 Room Air 98.2 Assessment & Plan ESRD - On HD MWF Seen on HD, tolerating well, continue as ordered, Rafael Baxter Access- AVG - Acute Anemia- recent Hospitalization , recd PRBC s/p EGD on 04/05 -mostly-healed, but likely erosive at baseline, esophagitis at 35 cm,Non-specific prepyloric erythema; antral biopsies done. Hgb at presentation this hospitalization 6.4 , per Primary/GI Lt Arm swelling art US 04/09 COMPARISON: March 22, 2020 The left arm fistula is patent with velocity of 150-216 cm/S. AVG - Was seen by vascular earlier this month recommended follow up with Dr Galvan who placed the graft to evaluate for her pain and tenderness Hypertension - stable Anemia - ELISEO per protocol DM II Hx of DVT Labs Labs Laboratory Tests Test 04/09/20 22:35 04/10/20 07:51 White Blood Count 5.6 x10^3/uL (4.0-11.0) Red Blood Count 2.16 x10^6/uL (3.50-5.40) Hemoglobin 6.4 g/dL (12.0-15.5) Hematocrit 19.5 % (36.0-47.0) Mean Corpuscular Volume 91 fL (79-100) Mean Corpuscular Hemoglobin 30 pg (25-35) Mean Corpuscular Hemoglobin Concent 33 g/dL (31-37) Red Cell Distribution Width 18.0 % (11.5-14.5) Platelet Count 242 x10^3/uL (140-400) Neutrophils (%) (Auto) 68 % (31-73) Lymphocytes (%) (Auto) 18 % (24-48) Monocytes (%) (Auto) 12 % (0-9) Eosinophils (%) (Auto) 1 % (0-3) Basophils (%) (Auto) 1 % (0-3) Neutrophils # (Auto) 3.8 x10^3/uL (1.8-7.7) Lymphocytes # (Auto) 1.0 x10^3/uL (1.0-4.8) Monocytes # (Auto) 0.6 x10^3/uL (0.0-1.1) Eosinophils # (Auto) 0.1 x10^3/uL (0.0-0.7) Basophils # (Auto) 0.1 x10^3/uL (0.0-0.2) Prothrombin Time 18.7 SEC (11.7-14.0) Prothromb Time International Ratio 1.6 (0.8-1.1) Sodium Level 139 mmol/L (136-145) Potassium Level 5.0 mmol/L (3.5-5.1) Chloride Level 102 mmol/L (98-107) Carbon Dioxide Level 26 mmol/L (21-32) Anion Gap 11 (6-14) Blood Urea Nitrogen 82 mg/dL (7-20) Creatinine 7.1 mg/dL (0.6-1.0) Estimated GFR (Cockcroft-Gault) 6.7 BUN/Creatinine Ratio 12 (6-20) Glucose Level 132 mg/dL (70-99) Calcium Level 7.2 mg/dL (8.5-10.1) Magnesium Level 2.3 mg/dL (1.8-2.4) Total Bilirubin 0.3 mg/dL (0.2-1.0) Aspartate Amino Transf (AST/SGOT) 22 U/L (15-37) Alanine Aminotransferase (ALT/SGPT) 23 U/L (14-59) Alkaline Phosphatase 53 U/L (46-116) Total Protein 5.8 g/dL (6.4-8.2) Albumin 2.9 g/dL (3.4-5.0) Albumin/Globulin Ratio 1.0 (1.0-1.7) Glucose (Fingerstick) 114 mg/dL (70-99) Laboratory Tests Test 04/09/20 22:35 04/10/20 07:51 White Blood Count 5.6 x10^3/uL (4.0-11.0) Red Blood Count 2.16 x10^6/uL (3.50-5.40) Hemoglobin 6.4 g/dL (12.0-15.5) Hematocrit 19.5 % (36.0-47.0) Mean Corpuscular Volume 91 fL (79-100) Mean Corpuscular Hemoglobin 30 pg (25-35) Mean Corpuscular Hemoglobin Concent 33 g/dL (31-37) Red Cell Distribution Width 18.0 % (11.5-14.5) Platelet Count 242 x10^3/uL (140-400) Neutrophils (%) (Auto) 68 % (31-73) Lymphocytes (%) (Auto) 18 % (24-48) Monocytes (%) (Auto) 12 % (0-9) Eosinophils (%) (Auto) 1 % (0-3) Basophils (%) (Auto) 1 % (0-3) Neutrophils # (Auto) 3.8 x10^3/uL (1.8-7.7) Lymphocytes # (Auto) 1.0 x10^3/uL (1.0-4.8) Monocytes # (Auto) 0.6 x10^3/uL (0.0-1.1) Eosinophils # (Auto) 0.1 x10^3/uL (0.0-0.7) Basophils # (Auto) 0.1 x10^3/uL (0.0-0.2) Prothrombin Time 18.7 SEC (11.7-14.0) Prothromb Time International Ratio 1.6 (0.8-1.1) Sodium Level 139 mmol/L (136-145) Potassium Level 5.0 mmol/L (3.5-5.1) Chloride Level 102 mmol/L (98-107) Carbon Dioxide Level 26 mmol/L (21-32) Anion Gap 11 (6-14) Blood Urea Nitrogen 82 mg/dL (7-20) Creatinine 7.1 mg/dL (0.6-1.0) Estimated GFR (Cockcroft-Gault) 6.7 BUN/Creatinine Ratio 12 (6-20) Glucose Level 132 mg/dL (70-99) Calcium Level 7.2 mg/dL (8.5-10.1) Magnesium Level 2.3 mg/dL (1.8-2.4) Total Bilirubin 0.3 mg/dL (0.2-1.0) Aspartate Amino Transf (AST/SGOT) 22 U/L (15-37) Alanine Aminotransferase (ALT/SGPT) 23 U/L (14-59) Alkaline Phosphatase 53 U/L (46-116) Total Protein 5.8 g/dL (6.4-8.2) Albumin 2.9 g/dL (3.4-5.0) Albumin/Globulin Ratio 1.0 (1.0-1.7) Glucose (Fingerstick) 114 mg/dL (70-99) Review All relevant outside records, renal labs, imaging studies, telemetry/EKG's were reviewed. SALVADOR KOWALSKI MD Apr 10, 2020 10:06
--- NOTE | 2020-04-10 12:37 | NUR ---
SW following. Spoke with RN and reviewed chart. Pt lives with family and has 24 hour care. Pt on room air. Pt has outpatient dialysis on MWF at [facility], , (fax). Pt current with [facility], , (fax). Spoke with PT and they are recommending SNU. Spoke with pt's dtr Vanessa ([phone]) who is agreeable to SNU referral and requested referral to [facility]. SW phoned and faxed referral. SW requested COVID screen. SW to continue following.
[2020-04-10] MEDS ORDERED: IV NORMAL SALINE 1000ML BAG 1,000 ML IV PRN ×2 (13:58)
[2020-04-10] MEDS ORDERED: ALBUMIN HUMAN 25% 200 ML IV PRN (14:00)
[2020-04-10] MEDS ORDERED: DIALYSIS PATIENT. MC PRN ×2 (14:00)
[2020-04-10] MEDS ORDERED: LIDOCAINE 1% PF 2 ML VIAL. ONE (14:00)
[2020-04-10] MEDS ORDERED: LIDOCAINE 1% PF 2 ML VIAL. INJ ONE (14:15)
[2020-04-10] MEDS ORDERED: APIX2.5T PO (14:48)
[2020-04-10] MEDS ORDERED: ACETAMINOPHEN 500 MG TABLET PO PRN (16:30)
[2020-04-10] MEDS: ZIPRASIDONE 20 MG CAPSULE PO SCH (20:27)
[2020-04-10] MEDS: DONEPEZIL HCL 5 MG TABLET. PO SCH (20:28)
[2020-04-11 03:00] VITALS: BP 145/44
[2020-04-11 05:25] LABS: BASO % 1 % (0-3); EOS % 1 % (0-3); HEMATOCRIT 21.6 % (36.0-47.0); HEMOGLOBIN 7.2 g/dL (12.0-15.5); LYMPH # 0.8 x10^3/uL (1.0-4.8); LYMPH % 14 % (24-48); MEAN CORPUSCULAR HEMOGLOBIN 30 pg (25-35); MEAN CORPUSCULAR HGB CONC 33 g/dL (31-37); MEAN CORPUSCULAR VOLUME 90 fL (79-100); MONO # 0.7 x10^3/uL (0.0-1.1); MONO % 12 % (0-9); NEUT # 4.2 x10^3/uL (1.8-7.7); NEUT % 72 % (31-73); PLATELET COUNT 237 x10^3/uL (140-400); RED BLOOD COUNT 2.42 x10^6/uL (3.50-5.40); RED CELL DISTRIBUTION WIDTH 18.2 % (11.5-14.5); WHITE BLOOD COUNT 5.8 x10^3/uL (4.0-11.0)
[2020-04-11 05:41] LABS: CALCIUM 7.4 mg/dL (8.5-10.1); CREATININE 4.3 mg/dL (0.6-1.0); GFR 11.9; POTASSIUM 4.1 mmol/L (3.5-5.1)
[2020-04-11 07:00] VITALS: BP 147/53
--- NOTE | 2020-04-11 09:29 | PDOC ---
DATE OF SERVICE DATE: 04/11/20 TIME: 09:29 SUBJECTIVE ROS No complaints, talking on the phone OBJECTIVE Vital Signs Vital Signs Date Time Temp Pulse Resp B/P (MAP) Pulse Ox O2 Delivery O2 Flow Rate FiO2 04/11/20 07:00 98.8 89 17 147/53 (84) 90 Room Air 98.8 I & 0 Intake and Output 04/11/20 07:00 Intake Total 760 ml Output Total 0 ml Balance 760 ml Intake Oral 760 ml Output Urine Total 0 ml # Voids 1 PHYSICAL EXAM Physical Exam General Appearance: no apparent distress, HEEN OM moist Neck Supple Skin: No rash Respiratory: decreased breath sounds at bases, Non labored Heart: S1S2 Abdomen: soft, bowel sounds present Genitourinary: No houser Extremities: No LE edema Neurology: baseline dementia No houser DIAGNOSIS/ASSESSMENT Assessment & Plan ESRD - On HD MWF No indication for HD today Access- AVG Acute Anemia- recent Hospitalization , recd PRBC s/p EGD on 04/05 -mostly-healed, but likely erosive at baseline, esophagitis at 35 cm,Non-specific prepyloric erythema; antral biopsies done. Hgb at presentation this hospitalization 6.4 s/p PRBC , GI following Lt Arm swelling art US 04/09 COMPARISON: March 22, 2020 The left arm fistula is patent with velocity of 150-216 cm/S. AVG - Was seen by vascular earlier this month recommended follow up with Dr Galvan who placed the graft to evaluate for her pain and tenderness Hypertension - stable Anemia - ELISEO per protocol DM II Hx of DVT COMMENT/RELEVANT DATA Meds Current Medications Medications (Trade) Dose Ordered Sig/Diana Start Time Stop Time Status Last Admin Dose Admin Acetaminophen (Tylenol) 650 mg PRN Q6HRS PRN 04/11/20 09:30 Albumin Human 200 ml @ 200 mls/hr 1X PRN PRN 04/10/20 14:00 04/10/20 19:59 DC Apixaban (Eliquis) 2.5 mg BID 04/10/20 09:00 04/10/20 20:28 2.5 MG Donepezil HCl (Aricept) 5 mg QHS 04/10/20 21:00 04/10/20 20:28 5 MG Hydralazine HCl (Apresoline) 25 mg BID 04/10/20 09:00 04/10/20 20:27 25 MG Info (PHARMACY MONITORING -- do not chart) 1 each PRN DAILY PRN 04/10/20 14:00 Cancel Lidocaine HCl (Xylocaine-Mpf 1% 2ml Vial) 2 ml STK-MED ONCE 04/10/20 14:00 04/11/20 09:07 DC Ondansetron HCl (Zofran) 4 mg PRN Q6HRS PRN 04/11/20 09:30 Pantoprazole Sodium (Protonix) 40 mg DAILYAC 04/11/20 07:30 Sodium Chloride 1,000 ml @ 400 mls/hr Q2H30M PRN 04/10/20 13:58 04/11/20 01:57 DC Vitamin B Complex/ Vitamin C (Sarahy-Angelia) 1 tab DAILY 04/10/20 09:00 04/10/20 09:47 1 TAB Ziprasidone (Geodon) 20 mg HS 04/10/20 21:00 04/10/20 20:27 20 MG Lab Laboratory Tests Test 04/10/20 11:52 04/10/20 15:15 04/10/20 20:53 04/11/20 04:40 Glucose (Fingerstick) 107 mg/dL (70-99) 194 mg/dL (70-99) Hepatitis B Surface Antigen Nonreactive (Nonreactive) White Blood Count 5.8 x10^3/uL (4.0-11.0) Red Blood Count 2.42 x10^6/uL (3.50-5.40) Hemoglobin 7.2 g/dL (12.0-15.5) Hematocrit 21.6 % (36.0-47.0) Mean Corpuscular Volume 90 fL (79-100) Mean Corpuscular Hemoglobin 30 pg (25-35) Mean Corpuscular Hemoglobin Concent 33 g/dL (31-37) Red Cell Distribution Width 18.2 % (11.5-14.5) Platelet Count 237 x10^3/uL (140-400) Neutrophils (%) (Auto) 72 % (31-73) Lymphocytes (%) (Auto) 14 % (24-48) Monocytes (%) (Auto) 12 % (0-9) Eosinophils (%) (Auto) 1 % (0-3) Basophils (%) (Auto) 1 % (0-3) Neutrophils # (Auto) 4.2 x10^3/uL (1.8-7.7) Lymphocytes # (Auto) 0.8 x10^3/uL (1.0-4.8) Monocytes # (Auto) 0.7 x10^3/uL (0.0-1.1) Eosinophils # (Auto) 0.0 x10^3/uL (0.0-0.7) Basophils # (Auto) 0.0 x10^3/uL (0.0-0.2) Sodium Level 138 mmol/L (136-145) Potassium Level 4.1 mmol/L (3.5-5.1) Chloride Level 101 mmol/L (98-107) Carbon Dioxide Level 30 mmol/L (21-32) Anion Gap 7 (6-14) Blood Urea Nitrogen 42 mg/dL (7-20) Creatinine 4.3 mg/dL (0.6-1.0) Estimated GFR (Cockcroft-Gault) 11.9 Glucose Level 111 mg/dL (70-99) Calcium Level 7.4 mg/dL (8.5-10.1) Test 04/11/20 07:46 Glucose (Fingerstick) 128 mg/dL (70-99) Results All relevant outside records, renal labs, imaging studies, telemetry/EKG's were reviewed. Justicifation of Admission Dx: Justifications for Admission: Justification of Admission Dx: Yes SALVADOR KOWALSKI MD Apr 11, 2020 09:29
[2020-04-11] MEDS ORDERED: ACETAMINOPHEN 325 MG TABLET. PO PRN (09:30)
[2020-04-11] MEDS ORDERED: ONDANSETRON PF 4 MG/2 ML VIAL. IVP PRN (09:30)
--- NOTE | 2020-04-11 10:05 | PDOC ---
[employer] PROGRESS NOTE Date of Service DOS: DATE: 04/11/20 TIME: 09:24 Chief Complaint Chief Complaint A/P: Acute on chronic anemia - improving with transfusion, unclear if there is significant GI loss Malnutrition End-stage renal disease on hemodialysis Nonocclusive DVT in left internal jugular vein Hypocalcemia Moderate protein calorie malnutrition Dementia Acute encephalopathy - noted by daughter to be more confused, could be metabolic due to anemia, but could be due to dementia HTN DM2 FEN - Renal ADA PPX - eliquis FULL CODE Dispo - Inpatient. Patient with recently discharged from our service after evaluation for chest pain. There is some concern for daughter's ability to care for patient at home, and long-term inpatient alf care might be in her best interest. PT/OT. History of Present Illness History of Present Illness Ms Michelle is an 84yo F w/ PMHx dementia, Diabetes-Type II, HTN, ESRD on HD on MWF who was brought here by her family for concern for inability to move. Patient denies any complaints, is pleasantly confused. Found with Hb 6.4. Left upper extremity fistula ultrasound shows patent fistula. Left upper extremity venous study reveals persistent left internal jugular vein thrombosis that may be improving. Hb improved to 7.2 after transfusion. She still does not recall why she is here, though on much prompting and guesses does get the year correct. She is asking to return to bed. Vitals/I&O Vitals/I&O: Vital Signs Date Time Temp Pulse Resp B/P (MAP) Pulse Ox O2 Delivery O2 Flow Rate FiO2 04/11/20 07:00 98.8 89 17 147/53 (84) 90 Room Air 98.8 I & O 04/10/20 04/10/20 04/11/20 15:00 23:00 07:00 Intake Total 410 ml 50 ml 300 ml Output Total 0 ml Balance 410 ml 50 ml 300 ml Physical Exam General: Alert, Oriented X3, Cooperative, No acute distress Lungs: Clear Abdomen: Normal bowel sounds, No tenderness Extremities: No clubbing, No cyanosis Skin: No rashes, No breakdown Labs Labs: Laboratory Tests Test 04/10/20 11:52 04/10/20 15:15 04/10/20 20:53 04/11/20 04:40 Glucose (Fingerstick) 107 mg/dL (70-99) 194 mg/dL (70-99) Hepatitis B Surface Antigen Nonreactive (Nonreactive) White Blood Count 5.8 x10^3/uL (4.0-11.0) Red Blood Count 2.42 x10^6/uL (3.50-5.40) Hemoglobin 7.2 g/dL (12.0-15.5) Hematocrit 21.6 % (36.0-47.0) Mean Corpuscular Volume 90 fL (79-100) Mean Corpuscular Hemoglobin 30 pg (25-35) Mean Corpuscular Hemoglobin Concent 33 g/dL (31-37) Red Cell Distribution Width 18.2 % (11.5-14.5) Platelet Count 237 x10^3/uL (140-400) Neutrophils (%) (Auto) 72 % (31-73) Lymphocytes (%) (Auto) 14 % (24-48) Monocytes (%) (Auto) 12 % (0-9) Eosinophils (%) (Auto) 1 % (0-3) Basophils (%) (Auto) 1 % (0-3) Neutrophils # (Auto) 4.2 x10^3/uL (1.8-7.7) Lymphocytes # (Auto) 0.8 x10^3/uL (1.0-4.8) Monocytes # (Auto) 0.7 x10^3/uL (0.0-1.1) Eosinophils # (Auto) 0.0 x10^3/uL (0.0-0.7) Basophils # (Auto) 0.0 x10^3/uL (0.0-0.2) Sodium Level 138 mmol/L (136-145) Potassium Level 4.1 mmol/L (3.5-5.1) Chloride Level 101 mmol/L (98-107) Carbon Dioxide Level 30 mmol/L (21-32) Anion Gap 7 (6-14) Blood Urea Nitrogen 42 mg/dL (7-20) Creatinine 4.3 mg/dL (0.6-1.0) Estimated GFR (Cockcroft-Gault) 11.9 Glucose Level 111 mg/dL (70-99) Calcium Level 7.4 mg/dL (8.5-10.1) Test 04/11/20 07:46 Glucose (Fingerstick) 128 mg/dL (70-99) Assessment and Plan Assessmemt and Plan Problems Medical Problems: (1) Adult failure to thrive Status: Acute (2) Anemia of chronic disease Status: Acute (3) Malnutrition Status: Acute Comment Review of Relevant I have reviewed the following items rose (where applicable) has been applied. Medications: Current Medications Medications (Trade) Dose Ordered Sig/Diana Route PRN Reason Start Time Stop Time Status Last Admin Dose Admin Donepezil HCl (Aricept) 5 mg QHS PO 04/10/20 21:00 04/10/20 20:28 Ziprasidone (Geodon) 20 mg HS PO 04/10/20 21:00 04/10/20 20:27 Acetaminophen (Tylenol) 500 mg 1X PRN PRN PO MILD PAIN / TEMP > 100.3'F 04/10/20 16:30 04/11/20 16:29 04/10/20 16:35 Justifications for Admission Other Justification CHARLIE CHAVEZ MD Apr 11, 2020 10:05
--- NOTE | 2020-04-11 10:19 | NUR ---
SW following. Spoke with Ruthann from [facility] and pt has been accepted for SNU pending COVID results. Pt does not have a secondary insurance at this time. Spoke with pt's dtr Vanessa ([phone]) who remains agreeable to SNU transfer when pt is medically ready. Ruthann from [facility] is working on arranging transportation to and from dialysis for this patient. SW following.
[2020-04-11 11:00] VITALS: BP 153/49
[2020-04-11] MEDS: APIXABAN 5 MG TABLET. PO SCH ×2 (11:02→20:25)
[2020-04-11] MEDS: hydrALAZINE 25 MG TABLET PO SCH ×2 (11:03→20:25)
[2020-04-11] MEDS: PANTOPRAZOLE 40 MG TABLET.DR. PO SCH (11:03)
[2020-04-11] MEDS: FOLIC/VIT B COMP W-C (RENAL) TABLET. PO SCH (11:03)
[2020-04-11 15:00] VITALS: BP 155/41
[2020-04-11 19:00] VITALS: BP 155/95
[2020-04-11] MEDS: DONEPEZIL HCL 5 MG TABLET. PO SCH (20:24)
[2020-04-11] MEDS: ZIPRASIDONE 20 MG CAPSULE PO SCH (20:25)
[2020-04-11] MEDS ORDERED: DARBEPOETIN ALFA 60 MCG/0.3 ML DISP.SYRIN. SQ SCH (21:00)
[2020-04-11 23:00] VITALS: BP 138/59
[2020-04-12 03:00] VITALS: BP 146/54
[2020-04-12 07:00] VITALS: BP 155/54
[2020-04-12] MEDS: PANTOPRAZOLE 40 MG TABLET.DR. PO SCH (07:30)
[2020-04-12] MEDS ORDERED: IV NORMAL SALINE 1000ML BAG 1,000 ML IV PRN (07:48)
[2020-04-12 07:59] LABS: BASO % 1 % (0-3); EOS % 1 % (0-3); HEMATOCRIT 23.8 % (36.0-47.0); HEMOGLOBIN 7.8 g/dL (12.0-15.5); LYMPH # 0.5 x10^3/uL (1.0-4.8); LYMPH % 8 % (24-48); MEAN CORPUSCULAR HEMOGLOBIN 29 pg (25-35); MEAN CORPUSCULAR HGB CONC 33 g/dL (31-37); MEAN CORPUSCULAR VOLUME 90 fL (79-100); MONO # 0.9 x10^3/uL (0.0-1.1); MONO % 13 % (0-9); NEUT # 5.2 x10^3/uL (1.8-7.7); NEUT % 78 % (31-73); PLATELET COUNT 212 x10^3/uL (140-400); RED BLOOD COUNT 2.65 x10^6/uL (3.50-5.40); WHITE BLOOD COUNT 6.7 x10^3/uL (4.0-11.0)
[2020-04-12] MEDS ORDERED: DIALYSIS PATIENT. MC PRN ×2 (08:00)
[2020-04-12] MEDS ORDERED: ALBUMIN HUMAN 25% 200 ML IV PRN (08:00)
[2020-04-12 08:03] LABS: CALCIUM 6.8 mg/dL (8.5-10.1); GFR 8.1; POTASSIUM 4.3 mmol/L (3.5-5.1)
[2020-04-12] MEDS: FOLIC/VIT B COMP W-C (RENAL) TABLET. PO SCH (09:00)
[2020-04-12] MEDS: hydrALAZINE 25 MG TABLET PO SCH (09:00)
--- NOTE | 2020-04-12 09:14 | PDOC ---
DATE OF SERVICE DATE: 04/12/20 TIME: 09:14 SUBJECTIVE ROS No complaints,seen on dialysis OBJECTIVE Vital Signs Vital Signs Date Time Temp Pulse Resp B/P (MAP) Pulse Ox O2 Delivery O2 Flow Rate FiO2 04/12/20 07:00 98.2 82 17 155/54 (87) 92 Room Air 98.2 I & 0 Intake and Output 04/12/20 07:00 Intake Total 100 ml Output Total 0 ml Balance 100 ml Intake Oral 100 ml Output Urine Total 0 ml PHYSICAL EXAM Physical Exam General Appearance: no apparent distress, HEEN OM moist Neck Supple Skin: No rash Respiratory: decreased breath sounds at bases, Non labored Heart: S1S2 Abdomen: soft, bowel sounds present Genitourinary: No houser Extremities: No LE edema Neurology: baseline dementia No houser DIAGNOSIS/ASSESSMENT Assessment & Plan ESRD - On HD MWF Seen on Dialysis, tolerating well, continue as ordered, Rafael Baxter Access- AVG Acute Anemia- recent Hospitalization , recd PRBC s/p EGD on 04/05 -mostly-healed, but likely erosive at baseline, esophagitis at 35 cm,Non-specific prepyloric erythema; antral biopsies done. Hgb at presentation this hospitalization 6.4 s/p PRBC , GI following Lt Arm swelling art US 04/09 COMPARISON: March 22, 2020 The left arm fistula is patent with velocity of 150-216 cm/S. AVG - Was seen by vascular earlier this month recommended follow up with Dr Galvan who placed the graft to evaluate for her pain and tenderness Hypertension - stable Anemia - ELISEO per protocol DM II Hx of DVT COMMENT/RELEVANT DATA Meds Current Medications Medications (Trade) Dose Ordered Sig/Diana Start Time Stop Time Status Last Admin Dose Admin Acetaminophen (Tylenol) 650 mg PRN Q6HRS PRN 04/11/20 09:30 Albumin Human 200 ml @ 200 mls/hr 1X PRN PRN 04/12/20 08:00 04/12/20 13:59 Apixaban (Eliquis) 2.5 mg BID 04/10/20 09:00 04/11/20 20:25 2.5 MG Darbepoetin Mike (ARANESP for DIALYSIS PTS) 60 mcg WEEKLYHS 04/11/20 21:00 04/11/20 20:25 60 MCG Donepezil HCl (Aricept) 5 mg QHS 04/10/20 21:00 04/11/20 20:24 5 MG Hydralazine HCl (Apresoline) 25 mg BID 04/10/20 09:00 04/11/20 20:25 25 MG Info (PHARMACY MONITORING -- do not chart) 1 each PRN DAILY PRN 04/12/20 08:00 Lidocaine HCl (Xylocaine-Mpf 1% 2ml Vial) 2 ml STK-MED ONCE 04/10/20 14:00 04/11/20 09:07 DC Ondansetron HCl (Zofran) 4 mg PRN Q6HRS PRN 04/11/20 09:30 Pantoprazole Sodium (Protonix) 40 mg DAILYAC 04/11/20 07:30 04/11/20 11:03 40 MG Sodium Chloride 1,000 ml @ 1,000 mls/hr Q1H PRN 04/12/20 07:48 04/12/20 13:47 Vitamin B Complex/ Vitamin C (Sarahy-Angelia) 1 tab DAILY 04/10/20 09:00 04/11/20 11:03 1 TAB Ziprasidone (Geodon) 20 mg HS 04/10/20 21:00 04/11/20 20:25 20 MG Lab Laboratory Tests Test 04/11/20 11:40 04/11/20 16:53 04/11/20 20:46 04/12/20 07:30 Glucose (Fingerstick) 152 mg/dL (70-99) 134 mg/dL (70-99) 168 mg/dL (70-99) White Blood Count 6.7 x10^3/uL (4.0-11.0) Red Blood Count 2.65 x10^6/uL (3.50-5.40) Hemoglobin 7.8 g/dL (12.0-15.5) Hematocrit 23.8 % (36.0-47.0) Mean Corpuscular Volume 90 fL (79-100) Mean Corpuscular Hemoglobin 29 pg (25-35) Mean Corpuscular Hemoglobin Concent 33 g/dL (31-37) Red Cell Distribution Width 19.0 % (11.5-14.5) Platelet Count 212 x10^3/uL (140-400) Neutrophils (%) (Auto) 78 % (31-73) Lymphocytes (%) (Auto) 8 % (24-48) Monocytes (%) (Auto) 13 % (0-9) Eosinophils (%) (Auto) 1 % (0-3) Basophils (%) (Auto) 1 % (0-3) Neutrophils # (Auto) 5.2 x10^3/uL (1.8-7.7) Lymphocytes # (Auto) 0.5 x10^3/uL (1.0-4.8) Monocytes # (Auto) 0.9 x10^3/uL (0.0-1.1) Eosinophils # (Auto) 0.0 x10^3/uL (0.0-0.7) Basophils # (Auto) 0.0 x10^3/uL (0.0-0.2) Sodium Level 138 mmol/L (136-145) Potassium Level 4.3 mmol/L (3.5-5.1) Chloride Level 100 mmol/L (98-107) Carbon Dioxide Level 30 mmol/L (21-32) Anion Gap 8 (6-14) Blood Urea Nitrogen 58 mg/dL (7-20) Creatinine 6.0 mg/dL (0.6-1.0) Estimated GFR (Cockcroft-Gault) 8.1 Glucose Level 117 mg/dL (70-99) Calcium Level 6.8 mg/dL (8.5-10.1) Test 04/12/20 07:53 Glucose (Fingerstick) 123 mg/dL (70-99) Results All relevant outside records, renal labs, imaging studies, telemetry/EKG's were reviewed. Justicifation of Admission Dx: Justifications for Admission: Justification of Admission Dx: Yes SALVADOR KOWALSKI MD Apr 12, 2020 09:14
[2020-04-12 11:00] VITALS: BP 129/50
--- NOTE | 2020-04-12 11:50 | PDOC ---
PROGRESS NOTES Date of Service: DATE: 04/12/20 TIME: 11:48 Chief Complaint Chief Complaint A/P: Acute on chronic anemia - improving with transfusion, unclear if there is significant GI loss Malnutrition End-stage renal disease on hemodialysis Nonocclusive DVT in left internal jugular vein Hypocalcemia Moderate protein calorie malnutrition Dementia Acute encephalopathy - noted by daughter to be more confused, could be metabolic due to anemia, but could be due to dementia HTN DM2 FEN - Renal ADA PPX - eliquis FULL CODE Dispo - Inpatient. Patient with recently discharged from our service after evaluation for chest pain. There is some concern for daughter's ability to care for patient at home, and long-term inpatient custodial care might be in her best interest. PT/OT. History of Present Illness History of Present Illness Ms Michelle is an 84yo F w/ PMHx dementia, Diabetes-Type II, HTN, ESRD on HD on MWF who was brought here by her family for concern for inability to move. Patient denies any complaints, is pleasantly confused. Found with Hb 6.4. Left upper extremity fistula ultrasound shows patent fistula. Left upper extremity venous study reveals persistent left internal jugular vein thrombosis that may be improving. Hemoglobin remained stable. She has no complaints, she is comfortable discharging to custodial facility for rehabilitation. Discussed with RN. Vitals Vitals Vital Signs Date Time Temp Pulse Resp B/P (MAP) Pulse Ox O2 Delivery O2 Flow Rate FiO2 04/12/20 11:00 71 129/50 (76) 04/12/20 07:00 98.2 17 92 Room Air 98.2 Physical Exam General: Alert, Oriented X3, Cooperative, No acute distress Lungs: Clear Abdomen: Normal bowel sounds, No tenderness Extremities: No clubbing, No cyanosis Skin: No rashes, No breakdown Labs LABS Laboratory Tests Test 04/11/20 16:53 04/11/20 20:46 04/12/20 07:30 04/12/20 07:53 Glucose (Fingerstick) 134 mg/dL (70-99) 168 mg/dL (70-99) 123 mg/dL (70-99) White Blood Count 6.7 x10^3/uL (4.0-11.0) Red Blood Count 2.65 x10^6/uL (3.50-5.40) Hemoglobin 7.8 g/dL (12.0-15.5) Hematocrit 23.8 % (36.0-47.0) Mean Corpuscular Volume 90 fL (79-100) Mean Corpuscular Hemoglobin 29 pg (25-35) Mean Corpuscular Hemoglobin Concent 33 g/dL (31-37) Red Cell Distribution Width 19.0 % (11.5-14.5) Platelet Count 212 x10^3/uL (140-400) Neutrophils (%) (Auto) 78 % (31-73) Lymphocytes (%) (Auto) 8 % (24-48) Monocytes (%) (Auto) 13 % (0-9) Eosinophils (%) (Auto) 1 % (0-3) Basophils (%) (Auto) 1 % (0-3) Neutrophils # (Auto) 5.2 x10^3/uL (1.8-7.7) Lymphocytes # (Auto) 0.5 x10^3/uL (1.0-4.8) Monocytes # (Auto) 0.9 x10^3/uL (0.0-1.1) Eosinophils # (Auto) 0.0 x10^3/uL (0.0-0.7) Basophils # (Auto) 0.0 x10^3/uL (0.0-0.2) Sodium Level 138 mmol/L (136-145) Potassium Level 4.3 mmol/L (3.5-5.1) Chloride Level 100 mmol/L (98-107) Carbon Dioxide Level 30 mmol/L (21-32) Anion Gap 8 (6-14) Blood Urea Nitrogen 58 mg/dL (7-20) Creatinine 6.0 mg/dL (0.6-1.0) Estimated GFR (Cockcroft-Gault) 8.1 Glucose Level 117 mg/dL (70-99) Calcium Level 6.8 mg/dL (8.5-10.1) Review of Systems Review of Systems Denies chest pain, denies shortness of breath, denies fever. Assessment and Plan Assessmemt and Plan Problems Medical Problems: (1) Adult failure to thrive Status: Acute (2) Anemia of chronic disease Status: Acute (3) Malnutrition Status: Acute Comment Review of Relevant I have reviewed the following items rose (where applicable) has been applied. Labs Laboratory Tests Test 04/10/20 11:52 04/10/20 15:15 04/10/20 19:20 04/10/20 20:53 Glucose (Fingerstick) 107 mg/dL (70-99) 194 mg/dL (70-99) Hepatitis B Surface Antigen Nonreactive (Nonreactive) Coronavirus (PCR) Not detected (Not Detected) Test 04/11/20 04:40 04/11/20 07:46 04/11/20 11:40 04/11/20 16:53 White Blood Count 5.8 x10^3/uL (4.0-11.0) Red Blood Count 2.42 x10^6/uL (3.50-5.40) Hemoglobin 7.2 g/dL (12.0-15.5) Hematocrit 21.6 % (36.0-47.0) Mean Corpuscular Volume 90 fL (79-100) Mean Corpuscular Hemoglobin 30 pg (25-35) Mean Corpuscular Hemoglobin Concent 33 g/dL (31-37) Red Cell Distribution Width 18.2 % (11.5-14.5) Platelet Count 237 x10^3/uL (140-400) Neutrophils (%) (Auto) 72 % (31-73) Lymphocytes (%) (Auto) 14 % (24-48) Monocytes (%) (Auto) 12 % (0-9) Eosinophils (%) (Auto) 1 % (0-3) Basophils (%) (Auto) 1 % (0-3) Neutrophils # (Auto) 4.2 x10^3/uL (1.8-7.7) Lymphocytes # (Auto) 0.8 x10^3/uL (1.0-4.8) Monocytes # (Auto) 0.7 x10^3/uL (0.0-1.1) Eosinophils # (Auto) 0.0 x10^3/uL (0.0-0.7) Basophils # (Auto) 0.0 x10^3/uL (0.0-0.2) Sodium Level 138 mmol/L (136-145) Potassium Level 4.1 mmol/L (3.5-5.1) Chloride Level 101 mmol/L (98-107) Carbon Dioxide Level 30 mmol/L (21-32) Anion Gap 7 (6-14) Blood Urea Nitrogen 42 mg/dL (7-20) Creatinine 4.3 mg/dL (0.6-1.0) Estimated GFR (Cockcroft-Gault) 11.9 Glucose Level 111 mg/dL (70-99) Calcium Level 7.4 mg/dL (8.5-10.1) Glucose (Fingerstick) 128 mg/dL (70-99) 152 mg/dL (70-99) 134 mg/dL (70-99) Test 04/11/20 20:46 04/12/20 07:30 04/12/20 07:53 Glucose (Fingerstick) 168 mg/dL (70-99) 123 mg/dL (70-99) White Blood Count 6.7 x10^3/uL (4.0-11.0) Red Blood Count 2.65 x10^6/uL (3.50-5.40) Hemoglobin 7.8 g/dL (12.0-15.5) Hematocrit 23.8 % (36.0-47.0) Mean Corpuscular Volume 90 fL (79-100) Mean Corpuscular Hemoglobin 29 pg (25-35) Mean Corpuscular Hemoglobin Concent 33 g/dL (31-37) Red Cell Distribution Width 19.0 % (11.5-14.5) Platelet Count 212 x10^3/uL (140-400) Neutrophils (%) (Auto) 78 % (31-73) Lymphocytes (%) (Auto) 8 % (24-48) Monocytes (%) (Auto) 13 % (0-9) Eosinophils (%) (Auto) 1 % (0-3) Basophils (%) (Auto) 1 % (0-3) Neutrophils # (Auto) 5.2 x10^3/uL (1.8-7.7) Lymphocytes # (Auto) 0.5 x10^3/uL (1.0-4.8) Monocytes # (Auto) 0.9 x10^3/uL (0.0-1.1) Eosinophils # (Auto) 0.0 x10^3/uL (0.0-0.7) Basophils # (Auto) 0.0 x10^3/uL (0.0-0.2) Sodium Level 138 mmol/L (136-145) Potassium Level 4.3 mmol/L (3.5-5.1) Chloride Level 100 mmol/L (98-107) Carbon Dioxide Level 30 mmol/L (21-32) Anion Gap 8 (6-14) Blood Urea Nitrogen 58 mg/dL (7-20) Creatinine 6.0 mg/dL (0.6-1.0) Estimated GFR (Cockcroft-Gault) 8.1 Glucose Level 117 mg/dL (70-99) Calcium Level 6.8 mg/dL (8.5-10.1) Laboratory Tests Test 04/11/20 16:53 04/11/20 20:46 04/12/20 07:30 04/12/20 07:53 Glucose (Fingerstick) 134 mg/dL (70-99) 168 mg/dL (70-99) 123 mg/dL (70-99) White Blood Count 6.7 x10^3/uL (4.0-11.0) Red Blood Count 2.65 x10^6/uL (3.50-5.40) Hemoglobin 7.8 g/dL (12.0-15.5) Hematocrit 23.8 % (36.0-47.0) Mean Corpuscular Volume 90 fL (79-100) Mean Corpuscular Hemoglobin 29 pg (25-35) Mean Corpuscular Hemoglobin Concent 33 g/dL (31-37) Red Cell Distribution Width 19.0 % (11.5-14.5) Platelet Count 212 x10^3/uL (140-400) Neutrophils (%) (Auto) 78 % (31-73) Lymphocytes (%) (Auto) 8 % (24-48) Monocytes (%) (Auto) 13 % (0-9) Eosinophils (%) (Auto) 1 % (0-3) Basophils (%) (Auto) 1 % (0-3) Neutrophils # (Auto) 5.2 x10^3/uL (1.8-7.7) Lymphocytes # (Auto) 0.5 x10^3/uL (1.0-4.8) Monocytes # (Auto) 0.9 x10^3/uL (0.0-1.1) Eosinophils # (Auto) 0.0 x10^3/uL (0.0-0.7) Basophils # (Auto) 0.0 x10^3/uL (0.0-0.2) Sodium Level 138 mmol/L (136-145) Potassium Level 4.3 mmol/L (3.5-5.1) Chloride Level 100 mmol/L (98-107) Carbon Dioxide Level 30 mmol/L (21-32) Anion Gap 8 (6-14) Blood Urea Nitrogen 58 mg/dL (7-20) Creatinine 6.0 mg/dL (0.6-1.0) Estimated GFR (Cockcroft-Gault) 8.1 Glucose Level 117 mg/dL (70-99) Calcium Level 6.8 mg/dL (8.5-10.1) Medications Current Medications Ondansetron HCl (Zofran) 4 mg PRN Q8HRS PRN IV NAUSEA/VOMITING 1ST CHOICE; Start 04/10/20 at 00:15; Stop 04/11/20 at 00:14; Status DC Donepezil HCl (Aricept) 5 mg QHS PO Last administered on 04/11/20at 20:24; Start 04/10/20 at 21:00 Vitamin B Complex/ Vitamin C (Sarahy-Angelia) 1 tab DAILY PO Last administered on 04/11/20at 11:03; Start 04/10/20 at 09:00 Hydralazine HCl (Apresoline) 25 mg BID PO Last administered on 04/11/20at 20:25; Start 04/10/20 at 09:00 Ziprasidone (Geodon) 20 mg HS PO Last administered on 04/11/20at 20:25; Start 04/10/20 at 21:00 Pantoprazole Sodium (Protonix) 40 mg DAILYAC PO Last administered on 04/11/20at 11:03; Start 04/11/20 at 07:30 Apixaban (Eliquis) 2.5 mg BID PO Last administered on 04/11/20at 20:25; Start 04/10/20 at 09:00 Sodium Chloride 1,000 ml @ 1,000 mls/hr Q1H PRN IV hypotension; Start 04/10/20 at 13:58; Stop 04/10/20 at 19:57; Status DC Albumin Human 200 ml @ 200 mls/hr 1X PRN PRN IV Hypotension; Start 04/10/20 at 14:00; Stop 04/10/20 at 19:59; Status DC Sodium Chloride 1,000 ml @ 400 mls/hr Q2H30M PRN IV PATENCY; Start 04/10/20 at 13:58; Stop 04/11/20 at 01:57; Status DC Info (PHARMACY MONITORING -- do not chart) 1 each PRN DAILY PRN MC SEE COMMENTS; Start 04/10/20 at 14:00 Info (PHARMACY MONITORING -- do not chart) 1 each PRN DAILY PRN MC SEE COMMENTS; Start 04/10/20 at 14:00; Status Cancel Lidocaine HCl (Xylocaine-Mpf 1% 2ml Vial) 2 ml 1X ONCE INJ ; Start 04/10/20 at 14:15; Stop 04/10/20 at 14:16; Status DC Acetaminophen (Tylenol) 500 mg 1X PRN PRN PO MILD PAIN / TEMP > 100.3'F Last administered on 04/10/20at 16:35; Start 04/10/20 at 16:30; Stop 04/11/20 at 16:29; Status DC Lidocaine HCl (Xylocaine-Mpf 1% 2ml Vial) 2 ml STK-MED ONCE .ROUTE ; Start 04/10/20 at 14:00; Stop 04/11/20 at 09:07; Status DC Ondansetron HCl (Zofran) 4 mg PRN Q6HRS PRN IVP NAUSEA/VOMITING; Start 04/11/20 at 09:30 Acetaminophen (Tylenol) 650 mg PRN Q6HRS PRN PO MILD PAIN / TEMP > 100.3'F; Start 04/11/20 at 09:30 Darbepoetin Mike (ARANESP for DIALYSIS PTS) 60 mcg WEEKLYHS SQ Last administered on 04/11/20at 20:25; Start 04/11/20 at 21:00 Sodium Chloride 1,000 ml @ 1,000 mls/hr Q1H PRN IV hypotension; Start 04/12/20 at 07:48; Stop 04/12/20 at 13:47 Albumin Human 200 ml @ 200 mls/hr 1X PRN PRN IV Hypotension; Start 04/12/20 at 08:00; Stop 04/12/20 at 13:59 Info (PHARMACY MONITORING -- do not chart) 1 each PRN DAILY PRN MC SEE COMMENTS; Start 04/12/20 at 08:00; Status UNV Info (PHARMACY MONITORING -- do not chart) 1 each PRN DAILY PRN MC SEE COMMENTS; Start 04/12/20 at 08:00 Active Scripts Active Omeprazole-Bicarb 20-1,100 Cap (Omeprazole/Sodium Bicarbonate) 1 Each Capsule 1 Cap PO DAILY 60 Days Reported Eliquis (Apixaban) 2.5 Mg Tablet 2.5 Mg PO BID Sarahy-Angelia Tablet (Folic Acid/Vitamin B Comp W-C) 0.8 Mg Tablet 1 Tab PO DAILY 30 Days Vitamin D2 (Ergocalciferol (Vitamin D2)) 1,250 Mcg Capsule 1,250 Mcg PO WEEKLY Donepezil Hcl 5 Mg Tablet 5 Mg PO QHS Ziprasidone Hcl 20 Mg Capsule 20 Mg PO HS Hydralazine Hcl 25 Mg Tablet 1 Tab PO BID Vitals/I & O Vital Sign - Last 24 Hours 04/11/20 04/11/20 04/11/20 04/11/20 15:00 19:00 19:15 20:25 Temp 97.9 97.8 97.9 97.8 Pulse 74 79 79 Resp 18 18 B/P (MAP) 155/41 (79) 155/95 (115) 155/95 Pulse Ox 100 98 O2 Delivery Room Air Room Air Room Air 04/11/20 04/12/20 04/12/20 04/12/20 23:00 03:00 07:00 11:00 Temp 98.0 98.2 98.2 98.0 98.2 98.2 Pulse 83 86 82 71 Resp 18 18 17 B/P (MAP) 138/59 (85) 146/54 (84) 155/54 (87) 129/50 (76) Pulse Ox 97 90 92 O2 Delivery Room Air Room Air Room Air Intake and Output 04/11/20 04/11/20 04/12/20 15:00 23:00 07:00 Intake Total 100 ml Output Total 0 ml 0 ml Balance 0 ml 100 ml Justicifation of Admission Dx: Justifications for Admission: Justification of Admission Dx: Yes EDMUND KRUGER MD Apr 12, 2020 11:50
--- NOTE | 2020-04-12 12:53 | NUR ---
DANYELLE following. Spoke with Ruthann from [facility] and she will take pt today for SNU despite pt needing one more overnight (Medicare has waved this criteria per COVRICARDO). DANYELLE waiting on discharge orders. DANYELLE arranged for [facility] to transport pt at 1500 after dialysis. Pt to transport via on room air. Pt on oral medications. JULIANA and Ruthann at [facility] notified. DANYELLE following. Addendum: 04/12/20 at 1340 by OTTONIEL BASSETT Discharge orders phoned and faxed. RN to call report. No further SW needs at this time.
--- NOTE | 2020-04-12 12:57 | SNU/HH DC ---
DISCHARGE ORDERS DISCHARGE INFORMATION: DISCHARGE DATE: Apr 12, 2020 FINAL DIAGNOSIS Problems Medical Problems: (1) Adult failure to thrive Status: Acute (2) Anemia of chronic disease Status: Acute (3) Malnutrition Status: Acute CONDITION ON DISCHARGE: Stable CODE STATUS: Code Status: Full MCFP: SNF STAY <30 DAYS: Yes HOSPICE: HOSPICE: No HOSPICE EVAL & TREAT: No LTAC: ADMIT TO LTAC: No POST DISCHARGE ORDERS: ACTIVITY ORDERS: Activity as tolerated WEIGHT BEARING STATUS: As tolerated DIET AFTER DISCHARGE: Renal CHECKS AFTER DISCHARGE: CHECKS AFTER DISCHARGE: Check blood press - daily, Weigh Yourself Daily TREATMENT/EQUIPMENT ORDERS: ADAPTIVE EQUIPMENT NEEDED: None Physical Therapy For: Evalulation/Treatment Occupational Therapy For: Evaluation/Treatment Speech Language Pathology For: Evaluation/Treatment DISCHARGE MEDICATIONS: Home Meds Active Scripts Omeprazole/Sodium Bicarbonate (OMEPRAZOLE-BICARB 20-1,100 CAP) 1 Each Capsule, 1 CAP PO DAILY for esophagitis for 60 Days, #60 CAP 0 Refills Prov:EDMUND KRUGER MD 04/06/20 Reported Medications Apixaban (ELIQUIS) 2.5 Mg Tablet, 2.5 MG PO BID, TAB 04/10/20 Folic Acid/Vitamin B Comp W-C (BRUCE-MALU TABLET) 0.8 Mg Tablet, 1 TAB PO DAILY for FOR DIALYSIS PT for 30 Days, #30 TAB 0 Refills 03/23/20 Ergocalciferol (Vitamin D2) (Vitamin D2) 1,250 Mcg Capsule, 1250 MCG PO WEEKLY for 03/03/20 Donepezil Hcl (DONEPEZIL HCL) 5 Mg Tablet, 5 MG PO QHS for 03/03/20 Ziprasidone Hcl (ZIPRASIDONE HCL) 20 Mg Capsule, 20 MG PO HS for bipolar 01/03/20 Hydralazine Hcl (HYDRALAZINE HCL) 25 Mg Tablet, 1 TAB PO BID for hypertension, #90 TAB 5 Refills 08/04/19 Discontinued Reported Medications Apixaban (ELIQUIS) 5 Mg Tablet, 10 MG PO DAILY for blood thinner for 7 Days, #14 TAB 03/27/20 EDMUND KRUGER MD Apr 12, 2020 12:57
--- NOTE | 2020-04-12 13:00 | PDOC3 ---
Discharge Summary Visit Information Date of Admission: Apr 10, 2020 Date of Discharge: Apr 12, 2020 Final Diagnosis Problems Medical Problems: (1) Adult failure to thrive Status: Acute (2) Anemia of chronic disease Status: Acute (3) Malnutrition Status: Acute Brief Hospital Course Allergies Allergies Coded Allergies Type Severity Reaction Last Updated Verified Sulfa (Sulfonamide Antibiotics) Allergy Severe "Ashkan Ubaldo's disease" 04/05/20 Yes Vital Signs Vital Signs Date Time Temp Pulse Resp B/P (MAP) Pulse Ox O2 Delivery O2 Flow Rate FiO2 04/12/20 11:00 71 129/50 (76) 04/12/20 07:00 98.2 17 92 Room Air 98.2 Lab Results Laboratory Tests Test 04/10/20 15:15 04/10/20 19:20 04/10/20 20:53 04/11/20 04:40 Hepatitis B Surface Antigen Nonreactive (Nonreactive) Coronavirus (PCR) Not detected (Not Detected) Glucose (Fingerstick) 194 mg/dL (70-99) White Blood Count 5.8 x10^3/uL (4.0-11.0) Red Blood Count 2.42 x10^6/uL (3.50-5.40) Hemoglobin 7.2 g/dL (12.0-15.5) Hematocrit 21.6 % (36.0-47.0) Mean Corpuscular Volume 90 fL (79-100) Mean Corpuscular Hemoglobin 30 pg (25-35) Mean Corpuscular Hemoglobin Concent 33 g/dL (31-37) Red Cell Distribution Width 18.2 % (11.5-14.5) Platelet Count 237 x10^3/uL (140-400) Neutrophils (%) (Auto) 72 % (31-73) Lymphocytes (%) (Auto) 14 % (24-48) Monocytes (%) (Auto) 12 % (0-9) Eosinophils (%) (Auto) 1 % (0-3) Basophils (%) (Auto) 1 % (0-3) Neutrophils # (Auto) 4.2 x10^3/uL (1.8-7.7) Lymphocytes # (Auto) 0.8 x10^3/uL (1.0-4.8) Monocytes # (Auto) 0.7 x10^3/uL (0.0-1.1) Eosinophils # (Auto) 0.0 x10^3/uL (0.0-0.7) Basophils # (Auto) 0.0 x10^3/uL (0.0-0.2) Sodium Level 138 mmol/L (136-145) Potassium Level 4.1 mmol/L (3.5-5.1) Chloride Level 101 mmol/L (98-107) Carbon Dioxide Level 30 mmol/L (21-32) Anion Gap 7 (6-14) Blood Urea Nitrogen 42 mg/dL (7-20) Creatinine 4.3 mg/dL (0.6-1.0) Estimated GFR (Cockcroft-Gault) 11.9 Glucose Level 111 mg/dL (70-99) Calcium Level 7.4 mg/dL (8.5-10.1) Test 04/11/20 07:46 04/11/20 11:40 04/11/20 16:53 04/11/20 20:46 Glucose (Fingerstick) 128 mg/dL (70-99) 152 mg/dL (70-99) 134 mg/dL (70-99) 168 mg/dL (70-99) Test 04/12/20 07:30 04/12/20 07:53 White Blood Count 6.7 x10^3/uL (4.0-11.0) Red Blood Count 2.65 x10^6/uL (3.50-5.40) Hemoglobin 7.8 g/dL (12.0-15.5) Hematocrit 23.8 % (36.0-47.0) Mean Corpuscular Volume 90 fL (79-100) Mean Corpuscular Hemoglobin 29 pg (25-35) Mean Corpuscular Hemoglobin Concent 33 g/dL (31-37) Red Cell Distribution Width 19.0 % (11.5-14.5) Platelet Count 212 x10^3/uL (140-400) Neutrophils (%) (Auto) 78 % (31-73) Lymphocytes (%) (Auto) 8 % (24-48) Monocytes (%) (Auto) 13 % (0-9) Eosinophils (%) (Auto) 1 % (0-3) Basophils (%) (Auto) 1 % (0-3) Neutrophils # (Auto) 5.2 x10^3/uL (1.8-7.7) Lymphocytes # (Auto) 0.5 x10^3/uL (1.0-4.8) Monocytes # (Auto) 0.9 x10^3/uL (0.0-1.1) Eosinophils # (Auto) 0.0 x10^3/uL (0.0-0.7) Basophils # (Auto) 0.0 x10^3/uL (0.0-0.2) Sodium Level 138 mmol/L (136-145) Potassium Level 4.3 mmol/L (3.5-5.1) Chloride Level 100 mmol/L (98-107) Carbon Dioxide Level 30 mmol/L (21-32) Anion Gap 8 (6-14) Blood Urea Nitrogen 58 mg/dL (7-20) Creatinine 6.0 mg/dL (0.6-1.0) Estimated GFR (Cockcroft-Gault) 8.1 Glucose Level 117 mg/dL (70-99) Calcium Level 6.8 mg/dL (8.5-10.1) Glucose (Fingerstick) 123 mg/dL (70-99) Laboratory Tests Test 04/11/20 16:53 04/11/20 20:46 04/12/20 07:30 04/12/20 07:53 Glucose (Fingerstick) 134 mg/dL (70-99) 168 mg/dL (70-99) 123 mg/dL (70-99) White Blood Count 6.7 x10^3/uL (4.0-11.0) Red Blood Count 2.65 x10^6/uL (3.50-5.40) Hemoglobin 7.8 g/dL (12.0-15.5) Hematocrit 23.8 % (36.0-47.0) Mean Corpuscular Volume 90 fL (79-100) Mean Corpuscular Hemoglobin 29 pg (25-35) Mean Corpuscular Hemoglobin Concent 33 g/dL (31-37) Red Cell Distribution Width 19.0 % (11.5-14.5) Platelet Count 212 x10^3/uL (140-400) Neutrophils (%) (Auto) 78 % (31-73) Lymphocytes (%) (Auto) 8 % (24-48) Monocytes (%) (Auto) 13 % (0-9) Eosinophils (%) (Auto) 1 % (0-3) Basophils (%) (Auto) 1 % (0-3) Neutrophils # (Auto) 5.2 x10^3/uL (1.8-7.7) Lymphocytes # (Auto) 0.5 x10^3/uL (1.0-4.8) Monocytes # (Auto) 0.9 x10^3/uL (0.0-1.1) Eosinophils # (Auto) 0.0 x10^3/uL (0.0-0.7) Basophils # (Auto) 0.0 x10^3/uL (0.0-0.2) Sodium Level 138 mmol/L (136-145) Potassium Level 4.3 mmol/L (3.5-5.1) Chloride Level 100 mmol/L (98-107) Carbon Dioxide Level 30 mmol/L (21-32) Anion Gap 8 (6-14) Blood Urea Nitrogen 58 mg/dL (7-20) Creatinine 6.0 mg/dL (0.6-1.0) Estimated GFR (Cockcroft-Gault) 8.1 Glucose Level 117 mg/dL (70-99) Calcium Level 6.8 mg/dL (8.5-10.1) Brief Hospital Course Ms. Michelle is a 84 old female with a history of end-stage renal disease on hemodialysis who presented with anemia. Patient was transfused 1 unit of packed red blood cells for hemoglobin 6.4 on admission, likely related to her anemia of chronic disease. Hemoglobin improved and made remained stable. Consults to nephrology to continue hemodialysis. Due to concern for daughter's ability to care for patient at home, patient was evaluated by PT and recommended fpc care. Patient was stable for discharge to SNU. Assessment Assessment Acute on chronic anemia of chronic disease Discharge Information Condition at Discharge: Improved Disposition/Orders: D/C to Another Facility Scheduled Apixaban (Eliquis) 2.5 Mg Tablet, 2.5 MG PO BID, (Reported) Entered as Reported by: KATHLEEN DAVIS RPH on 04/10/201447 Last Action: New Order on 04/10/201447 by KATHLEEN DAVIS RPH Donepezil Hcl (Donepezil Hcl) 5 Mg Tablet, 5 MG PO QHS for , (Reported) Entered as Reported by: YUVAL BAUER RN on 03/03/201938 Last Action: Continued on 04/10/20757 by EDMUND KRUGER MD Ergocalciferol (Vitamin D2) (Vitamin D2) 1,250 Mcg Capsule, 1,250 MCG PO WEEKLY for , (Reported) Entered as Reported by: YUVAL BAUER RN on 03/03/201938 Last Action: HELD on 04/10/20801 by EDMUND KRUGER MD Folic Acid/Vitamin B Comp W-C (Sarahy-Angelia Tablet) 0.8 Mg Tablet, 1 TAB PO DAILY for FOR DIALYSIS PT for 30 Days, #30 Ref 0 (Reported) Entered as Reported by: Sara Acharya on 03/23/20117 Last Action: Continued on 04/10/20757 by EDMUND KRUGER MD Hydralazine Hcl (Hydralazine Hcl) 25 Mg Tablet, 1 TAB PO BID for hypertension, #90 Ref 5 (Reported) Entered as Reported by: SUKHDEV OLIVER on 08/04/19 0454 Last Action: Continued on 04/10/20757 by EDMUND KRUGER MD Omeprazole/Sodium Bicarbonate (Omeprazole-Bicarb 20-1,100 Cap) 1 Each Capsule, 1 CAP PO DAILY for esophagitis for 60 Days, #60 Ref 0 Prescribed by: EDMUND KRUGER MD on 04/06/20 1147 Last Action: Converted on 04/10/20757 by EDMUND KRUGER MD Ziprasidone Hcl (Ziprasidone Hcl) 20 Mg Capsule, 20 MG PO HS for bipolar, (Reported) Entered as Reported by: Jose Marinelli on 01/03/202112 Last Action: Continued on 04/10/20757 by EDMUND KRUGER MD Discontinued Medications Apixaban (Eliquis) 5 Mg Tablet, 10 MG PO DAILY for blood thinner for 7 Days, #14 (Reported) Discontinued Reason: COMPLETED Entered as Reported by: GILLIAN LAZAR on 03/27/20 1634 Last Action: Discontinued on 04/10/20 1448 by KATHLEEN DAVIS [facility] Justicifation of Admission Dx: Justifications for Admission: Justification of Admission Dx: Yes EDMUND KRUGER MD Apr 12, 2020 13:00
[2020-04-12] MEDS: APIXABAN 5 MG TABLET. PO SCH (14:15)
--- NOTE | 2020-04-12 14:51 | NUR ---
pt returned from dialysis. left arm noted to be swollen now, was not before dialysis. pt was admitted w/ L arm swelling 04/10. pt also c/o "hurting every where". is very upset and does not want staff touching her. repeating "what did you do to me? I didn't feel this way before." Dr. Desai made aware. will proceed with discharge. pt did take eliquis and tylenol for RN
--- NOTE | 2020-04-12 15:28 | NUR ---
pt discharged to [facility]. report given to Michelle. meds and follow up reviewed. Michelle made aware of pt's current emotional state and swelling of left arm. IV removed from right forearm. pressure held for bleeding.
== END 2020-04-12 15:30 | DRG 682 ==
LOC: ER 22:06 → 5 NORTH 04-10 01:00
PROVIDERS: ADMIT Internal Medicine; ATTEND Internal Medicine
PROC: 30233N1 Transfusion of Nonautologous Red Blood Cells into Peripheral Vein, Percutaneous Approach (ICD-10-PCS; principal; 2020-04-10)
PROC: 5A1D70Z Performance of Urinary Filtration, Intermittent, Less than 6 Hours Per Day (ICD-10-PCS; 2020-04-10)
PROC: 5A1D70Z Performance of Urinary Filtration, Intermittent, Less than 6 Hours Per Day (ICD-10-PCS; 2020-04-12)
DX: I12.0 Hypertensive chronic kidney disease with stage 5 chronic kidney disease or end stage renal disease (principal); N18.6 End stage renal disease; I82.C12 Acute embolism and thrombosis of left internal jugular vein; E44.0 Moderate protein-calorie malnutrition; G93.40 Encephalopathy, unspecified; D63.8 Anemia in other chronic diseases classified elsewhere; E11.22 Type 2 diabetes mellitus with diabetic chronic kidney disease; E78.5 Hyperlipidemia, unspecified; E83.51 Hypocalcemia; F03.90 Unspecified dementia, unspecified severity, without behavioral disturbance, psychotic disturbance, mood disturbance, and anxiety; K20.9 Esophagitis, unspecified; Z20.828 Contact with and (suspected) exposure to other viral communicable diseases; R62.7 Adult failure to thrive; Z79.01 Long term (current) use of anticoagulants; Z79.899 Other long term (current) drug therapy; Z82.49 Family history of ischemic heart disease and other diseases of the circulatory system; Z90.11 Acquired absence of right breast and nipple; Z90.12 Acquired absence of left breast and nipple; Z90.710 Acquired absence of both cervix and uterus; Z99.2 Dependence on renal dialysis; Z88.2 Allergy status to sulfonamides; Z68.29 Body mass index [BMI] 29.0-29.9, adult
CPT/HCPCS: 36415; 80048; 80053; 82962; 83735; 85025; 85610; 86850; 86900; 86901; 86920; 87340; 93931; 93971; 99285; J0882; J3490; P9016; 97110-GP; 97116-GP; 97530-GP; G0378; U0003-CS

== ENCOUNTER 2020-04-20 15:48 | Inpatient (IN) | payer MEDICARE ==
[~2020-04-20] VITALS: Ht 162.6 cm; Wt 77.0 kg
[~2020-04-20 15:48] MED LIST changes: +APIX2.5T PO
[2020-04-20 16:38] LABS: BASO # 0.1 x10^3/uL (0.0-0.2); BASO % 1 % (0-3); EOS % 1 % (0-3); LYMPH # 0.6 x10^3/uL (1.0-4.8); LYMPH % 9 % (24-48); MEAN CORPUSCULAR HEMOGLOBIN 31 pg (25-35); MEAN CORPUSCULAR HGB CONC 33 g/dL (31-37); MEAN CORPUSCULAR VOLUME 94 fL (79-100); MONO # 0.7 x10^3/uL (0.0-1.1); MONO % 10 % (0-9); NEUT # 5.1 x10^3/uL (1.8-7.7); NEUT % 79 % (31-73); PLATELET COUNT 245 x10^3/uL (140-400); RED BLOOD COUNT 1.76 x10^6/uL (3.50-5.40); RED CELL DISTRIBUTION WIDTH 20.8 % (11.5-14.5); WHITE BLOOD COUNT 6.4 x10^3/uL (4.0-11.0)
[2020-04-20 16:40] LABS: HEMATOCRIT 16.6 % (36.0-47.0); HEMOGLOBIN 5.4 g/dL (12.0-15.5)
[2020-04-20 16:52] LABS: CALCIUM 8.1 mg/dL (8.5-10.1); CREATININE 4.8 mg/dL (0.6-1.0); GFR 10.5; POTASSIUM 4.9 mmol/L (3.5-5.1)
[2020-04-20 16:57] LABS: PLT ESTIMATE ADEQUATE (ADEQUATE)
[2020-04-20 16:59] LABS: ANISOCYTOSIS MOD; OVALOCYTES PRESENT; POIKILOCYTOSIS SLIGHT; POLYCHROMASIA SLIGHT
[2020-04-20 17:00] LABS: SCHISTOCYTES OCC
--- NOTE | 2020-04-20 17:00 | PHYS DOC ---
Past Medical History Past Medical History: Diabetes-Type II, Hypertension, Renal Disease Additional Past Medical Histor: dialysis Past Surgical History: Hysterectomy, Other Additional Past Surgical Histo: RIGHT MASTECTOMY, LEFT DIALYSIS FISTULA Smoking Status: Former Smoker Alcohol Use: None Drug Use: None General Adult EDM: Chief Complaint: ABNORMAL LABS HPI: HPI: Patient is a 84 year old female presents with a chief complaint of low hemoglobin from dialysis. Patient denies any complaints at this time denies any chest pain shortness of breath or active bleeding patient has baseline dementia. History and physical review of systems is limited to altered mental status. Review of Systems: Review of Systems: Constitutional: Denies fever or chills. [] Eyes: Denies change in visual acuity. [] HENT: Denies nasal congestion or sore throat. [] Respiratory: Denies cough or shortness of breath. [] Cardiovascular: Denies chest pain or edema. [] GI: Denies abdominal pain, nausea, vomiting, bloody stools or diarrhea. [] : Denies dysuria. [] Musculoskeletal: Denies back pain or joint pain. [] Integument: Denies rash. [] Neurologic: Denies headache, focal weakness or sensory changes. [] Endocrine: Denies polyuria or polydipsia. [] Lymphatic: Denies swollen glands. [] Psychiatric: Denies depression or anxiety. [] Heart Score: Risk Factors: Risk Factors: DM, Current or recent (<one month) smoker, HTN, HLP, family history of CAD, obesity. Risk Scores: Score 0 - 3: 2.5% MACE over next 6 weeks - Discharge Home Score 4 - 6: 20.3% MACE over next 6 weeks - Admit for Clinical Observation Score 7 - 10: 72.7% MACE over next 6 weeks - Early Invasive Strategies Allergies: Allergies: Allergies Coded Allergies Type Severity Reaction Last Updated Verified Sulfa (Sulfonamide Antibiotics) Allergy Severe "Ashkan Ubaldo's disease" 04/05/20 Yes Physical Exam: PE: Constitutional: Well developed, well nourished, no acute distress, non-toxic a ppearance. [] HENT: Normocephalic, atraumatic, bilateral external ears normal, oropharynx moist, no oral exudates, nose normal. [] Eyes: Pale conjunctiva Neck: Normal range of motion, no tenderness, supple, no stridor. [] Cardiovascular:Heart rate regular rhythm, peripheral pulses intact, cap refill brisk Lungs & Thorax: No respiratory distress diminished breath sounds Abdomen: , soft, no tenderness, no masses, no pulsatile masses. [] Skin: Warm, dry, no erythema, no rash. [] Back: No tenderness, no CVA tenderness. [] Extremities: No tenderness, no cyanosis, no clubbing, ROM intact, no edema. [] Neurologic: Confused, normal motor function, normal sensory function, no focal deficits noted. [] Psychologic: Affect normal, judgement normal, mood normal. [] Current Patient Data: Labs: Laboratory Tests Test 04/20/20 16:30 White Blood Count 6.4 x10^3/uL (4.0-11.0) Red Blood Count 1.76 x10^6/uL (3.50-5.40) L Hemoglobin 5.4 g/dL (12.0-15.5) *L Hematocrit 16.6 % (36.0-47.0) *L Mean Corpuscular Volume 94 fL (79-100) Mean Corpuscular Hemoglobin 31 pg (25-35) Mean Corpuscular Hemoglobin Concent 33 g/dL (31-37) Red Cell Distribution Width 20.8 % (11.5-14.5) H Platelet Count 245 x10^3/uL (140-400) Neutrophils (%) (Auto) 79 % (31-73) H Lymphocytes (%) (Auto) 9 % (24-48) L Monocytes (%) (Auto) 10 % (0-9) H Eosinophils (%) (Auto) 1 % (0-3) Basophils (%) (Auto) 1 % (0-3) Neutrophils # (Auto) 5.1 x10^3/uL (1.8-7.7) Lymphocytes # (Auto) 0.6 x10^3/uL (1.0-4.8) L Monocytes # (Auto) 0.7 x10^3/uL (0.0-1.1) Eosinophils # (Auto) 0.0 x10^3/uL (0.0-0.7) Basophils # (Auto) 0.1 x10^3/uL (0.0-0.2) Platelet Estimate Pending Sodium Level 141 mmol/L (136-145) Potassium Level 4.9 mmol/L (3.5-5.1) Chloride Level 103 mmol/L (98-107) Carbon Dioxide Level 29 mmol/L (21-32) Anion Gap 9 (6-14) Blood Urea Nitrogen 39 mg/dL (7-20) H Creatinine 4.8 mg/dL (0.6-1.0) H Estimated GFR (Cockcroft-Gault) 10.5 Glucose Level 106 mg/dL (70-99) H Calcium Level 8.1 mg/dL (8.5-10.1) L Laboratory Tests 04/20/20 16:30 Laboratory Tests 04/20/20 16:30 Vital Signs: Vital Signs Date Time Temp Pulse Resp B/P (MAP) Pulse Ox O2 Delivery O2 Flow Rate FiO2 04/20/20 15:57 97.8 91 16 158/70 (99) 97 Room Air 97.8 EKG: EKG: [] Radiology/Procedures: Radiology/Procedures: [] Impression: 20-gauge right external jugular IV placed by me. Patient tolerated well no complications. Course & Med Decision Making: Course & Med Decision Making Pertinent Labs and Imaging studies reviewed. (See chart for details) [] 84-year-old dialysis patient presents with profound anemia. Patient will be admitted to hospital with a blood transfusion. Consult placed with nephrology. Dr. Celestin will admit the patient. Brittany Disclaimer: Brittany Disclaimer: This electronic medical record was generated, in whole or in part, using a voice recognition dictation system. Departure Departure Impression: Primary Impression: Profound anemia Additional Impression: ESRD (end stage renal disease) Disposition: ADMITTED INPATIENT Admitting Physician: JUAN (KRISTOPHER) Condition: STABLE Referrals: DELTA RIZVI MD (PCP) Justicifation of Admission Dx: Justifications for Admission: Justification of Admission Dx: Yes (PROFOUND ANEMIA) XIOMARA MOORE MD Apr 20, 2020 17:00
[2020-04-20] MEDS ORDERED: ONDANSETRON PF 4 MG/2 ML VIAL. IV PRN (17:15)
[2020-04-20] MEDS ORDERED: fentaNYL PF VIAL 100 MCG/2 ML VIAL IV ONE (18:30)
[2020-04-20 18:35] VITALS: BP 149/42
[2020-04-20] MEDS ORDERED: POTASSIUM CHLORIDE 10MEQ 100 ML IV PRN (19:15)
[2020-04-20] MEDS ORDERED: MAGNESIUM SULFATE 2GM 50 ML IV SCH (19:15)
[2020-04-20] MEDS ORDERED: SENNOSIDES 8.6 MG TABLET PO PRN (19:15)
[2020-04-20] MEDS ORDERED: DEXTROSE 50% 25 GM / 50ML DISP.SYRIN. IV PRN (19:15)
[2020-04-20] MEDS ORDERED: ONDANSETRON PF 4 MG/2 ML VIAL. IVP PRN (19:15)
[2020-04-20] MEDS ORDERED: POTASSIUM CHLORIDE 20 MEQ TABLET.ER. PO PRN (19:15)
[2020-04-20] MEDS ORDERED: DOCUSATE SODIUM 100 MG CAPSULE. PO PRN (19:15)
[2020-04-20] MEDS ORDERED: POTASSIUM CHLORIDE 10MEQ 100 ML IV SCH (19:15)
--- NOTE | 2020-04-20 19:19 | PDOC1 ---
History and Physical Date of Service: DOS: DATE: 04/20/20 TIME: 19:15 Chief Complaint: Chief Complain: anemia Past Medical/Surgical History: PMH/PSH: Past Medical History: Diabetes-Type II, Hypertension, ESRD on dialysis Past Surgical History: Hysterectomy, RIGHT MASTECTOMY, LEFT arm HD graft Allergies: Allergies: Coded Allergies: Sulfa (Sulfonamide Antibiotics) (Verified Allergy, Severe, "Ashkan Ubaldo's disease", 04/05/20) Family History: Family History: Reviewed and none reported Social History: Social History: Smoking Status: Former Smoker Alcohol Use: None Drug Use: None Current Medications: Current Medications Current Medications Ondansetron HCl (Zofran) 4 mg PRN Q8HRS PRN IV NAUSEA/VOMITING; Start 04/20/20 at 17:15; Stop 04/21/20 at 17:14 Fentanyl Citrate (Fentanyl 2ml Vial) 50 mcg 1X ONCE IV ; Start 04/20/20 at 18:30; Stop 04/20/20 at 18:29; Status DC Active Scripts Active Omeprazole-Bicarb 20-1,100 Cap (Omeprazole/Sodium Bicarbonate) 1 Each Capsule 1 Cap PO DAILY 60 Days Reported Eliquis (Apixaban) 2.5 Mg Tablet 2.5 Mg PO BID Sarahy-Angelia Tablet (Folic Acid/Vitamin B Comp W-C) 0.8 Mg Tablet 1 Tab PO DAILY 30 Days Vitamin D2 (Ergocalciferol (Vitamin D2)) 1,250 Mcg Capsule 1,250 Mcg PO WEEKLY Donepezil Hcl 5 Mg Tablet 5 Mg PO QHS Ziprasidone Hcl 20 Mg Capsule 20 Mg PO HS Hydralazine Hcl 25 Mg Tablet 1 Tab PO BID ROS: Review of Systems Review of System REVIEW OF SYSTEMS: GENERAL: Denies weakness SKIN: No bruising, hair changes or rashes. EYES: No blurred, double or loss of vision. NOSE AND THROAT: No history of nosebleeds, hoarseness or sore throat. HEART: No history of palpitations, chest pain or shortness of breath on exertion. LUNGS: Denies cough, hemoptysis, wheezing or shortness of breath. GASTROINTESTINAL: Denies changes in appetite, nausea, vomiting, diarrhea or constipation. GENITOURINARY: No history of frequency, urgency, hesitancy or nocturia. NEUROLOGIC: Denies history of numbness, tingling, or tremor. PSYCHIATRIC: No history of panic, anxiety or depression. ENDOCRINE: No history of heat or cold intolerance, polyuria or polydipsia. EXTREMITIES: Denies joint pain, pain on walking or stiffness. Physical Exam: Vital Signs: Vital Signs Date Time Temp Pulse Resp B/P (MAP) Pulse Ox O2 Delivery O2 Flow Rate FiO2 04/20/20 18:35 98.0 88 20 149/42 (77) 95 Room Air 98.0 Physcial Exam: GEN: No apparent distress. Alert and oriented HEENT: Normal cephalic, atraumatic, external auditory canals are patent EYES: Extraocular muscles are intact, pupil are equally round and reactive to light and accommodation MUSCULOSKELETAL: Well developed , well nourished, good range of motion ENDOCRINE: No thyromegaly was palpated LYMPHATICS: No cervical chain or axillary nodes were noted HEMATOPOIETIC: No bruising NECK: Supple, no JVD, no thyromegaly was noted LUNGS: Clear to auscultation in all lung ruiz without rhonchi or wheezing HEART: RRR, S!, S2 present. Peripheral pulses intact, no obvious murmurs noted ABDOMEN: Soft, nontender. Positive bowel sounds, no organomegaly, normal bowel sounds EXTREMITIES: Without clubbing, cyanosis, or edema. Pedal pulses intact. Negative Homans sign NEUROLOGIC: Normal speech and tone. A&O x 3, moves all extremities, no obvious focal deficits PSYCHIATRIC: Normal affect, normal mood. Stable SKIN: No ulcerations or rashes, good skin turgor, no jaundice VASCULAR: Good capillary refill, neurovascular bundle appears to be intact Labs: Labs: Laboratory Tests Test 04/20/20 16:30 White Blood Count 6.4 x10^3/uL (4.0-11.0) Red Blood Count 1.76 x10^6/uL (3.50-5.40) Hemoglobin 5.4 g/dL (12.0-15.5) Hematocrit 16.6 % (36.0-47.0) Mean Corpuscular Volume 94 fL (79-100) Mean Corpuscular Hemoglobin 31 pg (25-35) Mean Corpuscular Hemoglobin Concent 33 g/dL (31-37) Red Cell Distribution Width 20.8 % (11.5-14.5) Platelet Count 245 x10^3/uL (140-400) Neutrophils (%) (Auto) 79 % (31-73) Lymphocytes (%) (Auto) 9 % (24-48) Monocytes (%) (Auto) 10 % (0-9) Eosinophils (%) (Auto) 1 % (0-3) Basophils (%) (Auto) 1 % (0-3) Neutrophils # (Auto) 5.1 x10^3/uL (1.8-7.7) Lymphocytes # (Auto) 0.6 x10^3/uL (1.0-4.8) Monocytes # (Auto) 0.7 x10^3/uL (0.0-1.1) Eosinophils # (Auto) 0.0 x10^3/uL (0.0-0.7) Basophils # (Auto) 0.1 x10^3/uL (0.0-0.2) Platelet Estimate Adequate (ADEQUATE) Polychromasia Slight Poikilocytosis Slight Basophilic Stippling Present Anisocytosis Mod Ovalocytes Present Schistocytes Occ Sodium Level 141 mmol/L (136-145) Potassium Level 4.9 mmol/L (3.5-5.1) Chloride Level 103 mmol/L (98-107) Carbon Dioxide Level 29 mmol/L (21-32) Anion Gap 9 (6-14) Blood Urea Nitrogen 39 mg/dL (7-20) Creatinine 4.8 mg/dL (0.6-1.0) Estimated GFR (Cockcroft-Gault) 10.5 Glucose Level 106 mg/dL (70-99) Calcium Level 8.1 mg/dL (8.5-10.1) Laboratory Tests Test 04/20/20 16:30 White Blood Count 6.4 x10^3/uL (4.0-11.0) Red Blood Count 1.76 x10^6/uL (3.50-5.40) Hemoglobin 5.4 g/dL (12.0-15.5) Hematocrit 16.6 % (36.0-47.0) Mean Corpuscular Volume 94 fL (79-100) Mean Corpuscular Hemoglobin 31 pg (25-35) Mean Corpuscular Hemoglobin Concent 33 g/dL (31-37) Red Cell Distribution Width 20.8 % (11.5-14.5) Platelet Count 245 x10^3/uL (140-400) Neutrophils (%) (Auto) 79 % (31-73) Lymphocytes (%) (Auto) 9 % (24-48) Monocytes (%) (Auto) 10 % (0-9) Eosinophils (%) (Auto) 1 % (0-3) Basophils (%) (Auto) 1 % (0-3) Neutrophils # (Auto) 5.1 x10^3/uL (1.8-7.7) Lymphocytes # (Auto) 0.6 x10^3/uL (1.0-4.8) Monocytes # (Auto) 0.7 x10^3/uL (0.0-1.1) Eosinophils # (Auto) 0.0 x10^3/uL (0.0-0.7) Basophils # (Auto) 0.1 x10^3/uL (0.0-0.2) Platelet Estimate Adequate (ADEQUATE) Polychromasia Slight Poikilocytosis Slight Basophilic Stippling Present Anisocytosis Mod Ovalocytes Present Schistocytes Occ Sodium Level 141 mmol/L (136-145) Potassium Level 4.9 mmol/L (3.5-5.1) Chloride Level 103 mmol/L (98-107) Carbon Dioxide Level 29 mmol/L (21-32) Anion Gap 9 (6-14) Blood Urea Nitrogen 39 mg/dL (7-20) Creatinine 4.8 mg/dL (0.6-1.0) Estimated GFR (Cockcroft-Gault) 10.5 Glucose Level 106 mg/dL (70-99) Calcium Level 8.1 mg/dL (8.5-10.1) Assessment/Plan Assessment/Plan Acute anemia due to ESRD Volume overload Diabetes mellitus type 2 Hypertension Hypocalcemia Admit to medicine for further management Pending PRBC transfusion Nephrology consult HD tomorrow Heparin for DVT prophylaxis Renal diet Full code Discussed with RN and SW Disposition pending transfusion Surrogate decision maker is the daughter Justifications for Admission Other Justification profound anemia HAO SUMMERS MD Apr 20, 2020 19:19
[2020-04-20] MEDS ORDERED: ELECTROLYTE (NON-ICU) PROTOCOL MC PRN (19:30)
[2020-04-20 19:54] VITALS: BP 139/79
[2020-04-20 19:57] VITALS: BP 126/58
--- NOTE | 2020-04-20 20:56 | NUR ---
Nursing note Blood transfusion ended at 2024 d/t pt's PIV not working. Approx 80ml blood transfused. Dino Celestin and Lorri gave order for PICC insertion. Consent obtained from daughter Vanessa via telephone. Nursing cutting room supervisor Nanette notified and [place] paged. Will discard current unit and transfuse new unit when IV access obtained.
[2020-04-20] MEDS ORDERED: MAGNESIUM OXIDE 400 MG TABLET PO SCH (21:00)
[2020-04-20] MEDS: HEPARIN for SUB-Q USE 5,000 UNIT/ML VIAL. SQ SCH (22:35)
[2020-04-20 22:36] VITALS: BP 136/36
[2020-04-21] VITALS (14 sets, daily range): BP systolic 108–148; BP diastolic 23–98
--- NOTE | 2020-04-21 00:59 | RAD ---
CHEST AP ONLY Clinical Indication: Reason: confirm picc placement Comparison: AP chest April 07, 2020. Findings: There is right PICC, tip at superior atrial caval junction. Atherosclerotic thoracic aorta. Stable cardiomegaly unchanged pulmonary vascular congestion. Mild bibasilar atelectasis. There is no pneumothorax. Small bilateral pleural effusions. No acute bone abnormality. IMPRESSION: 1. Right PICC tip at superior atrial caval junction. 2. There is pulmonary vascular congestion. 3. Small bilateral pleural effusions. Electronically signed by: Collin Pennington MD (04/21/2020 12:56 AM) [facility]
[2020-04-21 06:04] LABS: BASO % 0 % (0-3); EOS # 0.1 x10^3/uL (0.0-0.7); EOS % 2 % (0-3); LYMPH # 0.7 x10^3/uL (1.0-4.8); LYMPH % 12 % (24-48); MEAN CORPUSCULAR HEMOGLOBIN 31 pg (25-35); MEAN CORPUSCULAR HGB CONC 33 g/dL (31-37); MEAN CORPUSCULAR VOLUME 93 fL (79-100); MONO # 0.6 x10^3/uL (0.0-1.1); MONO % 10 % (0-9); NEUT # 4.3 x10^3/uL (1.8-7.7); NEUT % 76 % (31-73); PLATELET COUNT 238 x10^3/uL (140-400); RED CELL DISTRIBUTION WIDTH 19.2 % (11.5-14.5); WHITE BLOOD COUNT 5.7 x10^3/uL (4.0-11.0)
[2020-04-21 06:16] LABS: CALCIUM 7.7 mg/dL (8.5-10.1); CREATININE 5.8 mg/dL (0.6-1.0); GFR 8.4; MAGNESIUM 2.3 mg/dL (1.8-2.4); PHOSPHORUS 5.1 mg/dL (2.6-4.7); POTASSIUM 5.6 mmol/L (3.5-5.1)
[2020-04-21 06:24] LABS: HEMATOCRIT 19.6 % (36.0-47.0); HEMOGLOBIN 6.5 g/dL (12.0-15.5)
[2020-04-21] MEDS: INSULIN LISPRO 300 UNITS/3 ML VIAL. SQ SCH ×3 (08:00→17:00)
[2020-04-21] MEDS: HEPARIN for SUB-Q USE 5,000 UNIT/ML VIAL. SQ SCH ×2 (09:00→20:49)
--- NOTE | 2020-04-21 12:33 | PDOC ---
Renal-Progress Notes Subjective Notes Notes TIRED, SOME SOB BUT BETTER History of Present Illness Hx of present illness STABLE Vitals Vitals Vital Signs Date Time Temp Pulse Resp B/P (MAP) Pulse Ox O2 Delivery O2 Flow Rate FiO2 04/21/20 11:36 97.9 74 144/87 97.9 04/21/20 11:00 20 98 Room Air Weight Weight [ ] I.O. Intake and Output Intake and Output 04/21/20 07:00 Intake Total 520 ml Balance 520 ml Intake Oral 500 ml Blood Product IV Normal Saline Flush 20 ml # Voids 1 Labs Labs Laboratory Tests Test 04/20/20 16:30 04/21/20 05:40 04/21/20 09:18 White Blood Count 6.4 x10^3/uL (4.0-11.0) 5.7 x10^3/uL (4.0-11.0) Red Blood Count 1.76 x10^6/uL (3.50-5.40) 2.10 x10^6/uL (3.50-5.40) Hemoglobin 5.4 g/dL (12.0-15.5) 6.5 g/dL (12.0-15.5) Hematocrit 16.6 % (36.0-47.0) 19.6 % (36.0-47.0) Mean Corpuscular Volume 94 fL (79-100) 93 fL (79-100) Mean Corpuscular Hemoglobin 31 pg (25-35) 31 pg (25-35) Mean Corpuscular Hemoglobin Concent 33 g/dL (31-37) 33 g/dL (31-37) Red Cell Distribution Width 20.8 % (11.5-14.5) 19.2 % (11.5-14.5) Platelet Count 245 x10^3/uL (140-400) 238 x10^3/uL (140-400) Neutrophils (%) (Auto) 79 % (31-73) 76 % (31-73) Lymphocytes (%) (Auto) 9 % (24-48) 12 % (24-48) Monocytes (%) (Auto) 10 % (0-9) 10 % (0-9) Eosinophils (%) (Auto) 1 % (0-3) 2 % (0-3) Basophils (%) (Auto) 1 % (0-3) 0 % (0-3) Neutrophils # (Auto) 5.1 x10^3/uL (1.8-7.7) 4.3 x10^3/uL (1.8-7.7) Lymphocytes # (Auto) 0.6 x10^3/uL (1.0-4.8) 0.7 x10^3/uL (1.0-4.8) Monocytes # (Auto) 0.7 x10^3/uL (0.0-1.1) 0.6 x10^3/uL (0.0-1.1) Eosinophils # (Auto) 0.0 x10^3/uL (0.0-0.7) 0.1 x10^3/uL (0.0-0.7) Basophils # (Auto) 0.1 x10^3/uL (0.0-0.2) 0.0 x10^3/uL (0.0-0.2) Platelet Estimate Adequate (ADEQUATE) Polychromasia Slight Poikilocytosis Slight Basophilic Stippling Present Anisocytosis Mod Ovalocytes Present Schistocytes Occ Sodium Level 141 mmol/L (136-145) 140 mmol/L (136-145) Potassium Level 4.9 mmol/L (3.5-5.1) 5.6 mmol/L (3.5-5.1) Chloride Level 103 mmol/L (98-107) 104 mmol/L (98-107) Carbon Dioxide Level 29 mmol/L (21-32) 29 mmol/L (21-32) Anion Gap 9 (6-14) 7 (6-14) Blood Urea Nitrogen 39 mg/dL (7-20) 44 mg/dL (7-20) Creatinine 4.8 mg/dL (0.6-1.0) 5.8 mg/dL (0.6-1.0) Estimated GFR (Cockcroft-Gault) 10.5 8.4 Glucose Level 106 mg/dL (70-99) 112 mg/dL (70-99) Calcium Level 8.1 mg/dL (8.5-10.1) 7.7 mg/dL (8.5-10.1) Phosphorus Level 5.1 mg/dL (2.6-4.7) Magnesium Level 2.3 mg/dL (1.8-2.4) Glucose (Fingerstick) 129 mg/dL (70-99) Review of Systems Constitutional: yes: alert, oriented Ears/Nose/Throat: Yes: no symptom reported Eyes: Yes: no symptom reported Pulmonary: Yes no symptom reported Cardiovascular: Yes no symptom reported Gastrointestional: Yes: nausea Genitourinary: Yes: no symptom reported Musculoskeletal: Yes: no symptom reported Skin: Yes no symptom reported Psychiatric/Neurological: Yes: no symptom reported Endocrine: Yes: no symptom reported Physical Exam General Appearance: no apparent distress Skin: warm Respiratory: bilateral CTA Heart: S1S2 Abdomen: soft, bowel sounds present Genitourinary: bladder flat Extremities: pulses present Neurology: alert, confused Assessment Assessment IMP ANEMIA ESRD-TTS DIASTOLIC CHF HTN DM II PLAN ARANESP PRBC NEEDED HD TODAY UF TOLERATED MAURO CASEY MD Apr 21, 2020 12:33
[2020-04-21] MEDS ORDERED: DIALYSIS PATIENT. MC PRN ×2 (13:00)
--- NOTE | 2020-04-21 13:26 | NUR ---
SS following for discharge planning. SS reviewed pt chart and discussed with pt RN. Pt is skilled rehabilitation resident at [facility], ; fax [phone]. Prior to that pt was from home with [facility], ; fax [phone]. Pt has outpatient dialysis at [facility], , , Friday, Friday, and Friday. Per dialysis pt was agitated at dialysis on Friday and came back to treat on . They reported that pt became lethargic at dialysis on and was sent to the hospital. Pt can go back to [facility] for continued skilled rehabilitation. PT/OT ordered. [facility] requesting new COVID19 test. SS will continue to follow for discharge planning.
--- NOTE | 2020-04-21 17:45 | PDOC ---
PROGRESS NOTES Date of Service: DATE: 04/21/20 TIME: 17:42 Chief Complaint Chief Complaint Acute anemia due to ESRD Volume overload Diabetes mellitus type 2 Hypertension Hypocalcemia Pending PRBC transfusion Nephrology consult HD as per home care consultant Heparin for DVT prophylaxis Renal diet Full code Discussed with RN and SW Disposition pending transfusion Surrogate decision maker is the daughter History of Present Illness History of Present Illness 04/21 Patient sitting in chair in no acute distress. Hemoglobin noted, patient is quite upset because she does not want to be in the hospital, she does not want to be readmitted frequently, explained to her the need for transfusion and that it is going to be a chronic condition due to her end-stage renal disease and hemodialysis dependence. Patient does not seem to comprehend the fact that due to the dialysis treatment she will need constant monitoring and patient also has had a history of nonadherence to treatment plans previously. Discussed with nursing staff Vitals Vitals Vital Signs Date Time Temp Pulse Resp B/P (MAP) Pulse Ox O2 Delivery O2 Flow Rate FiO2 04/21/20 13:10 98.3 63 18 148/50 98.3 04/21/20 11:00 98 Room Air Physical Exam Physical Exam GEN: No apparent distress. Alert and oriented HEENT: Normal cephalic, atraumatic, external auditory canals are patent EYES: Extraocular muscles are intact, pupil are equally round and reactive to light and accommodation MUSCULOSKELETAL: Well developed , well nourished, good range of motion ENDOCRINE: No thyromegaly was palpated LYMPHATICS: No cervical chain or axillary nodes were noted HEMATOPOIETIC: No bruising NECK: Supple, no JVD, no thyromegaly was noted LUNGS: Clear to auscultation in all lung ruiz without rhonchi or wheezing HEART: RRR, S!, S2 present. Peripheral pulses intact, no obvious murmurs noted ABDOMEN: Soft, nontender. Positive bowel sounds, no organomegaly, normal bowel sounds EXTREMITIES: Without clubbing, cyanosis, or edema. Pedal pulses intact. Negative Homans sign NEUROLOGIC: Normal speech and tone. A&O x 3, moves all extremities, no obvious focal deficits PSYCHIATRIC: Normal affect, normal mood. Stable SKIN: No ulcerations or rashes, good skin turgor, no jaundice VASCULAR: Good capillary refill, neurovascular bundle appears to be intact Lungs: Clear Labs LABS Laboratory Tests Test 04/21/20 05:40 04/21/20 09:18 04/21/20 17:11 White Blood Count 5.7 x10^3/uL (4.0-11.0) Red Blood Count 2.10 x10^6/uL (3.50-5.40) Hemoglobin 6.5 g/dL (12.0-15.5) Hematocrit 19.6 % (36.0-47.0) Mean Corpuscular Volume 93 fL (79-100) Mean Corpuscular Hemoglobin 31 pg (25-35) Mean Corpuscular Hemoglobin Concent 33 g/dL (31-37) Red Cell Distribution Width 19.2 % (11.5-14.5) Platelet Count 238 x10^3/uL (140-400) Neutrophils (%) (Auto) 76 % (31-73) Lymphocytes (%) (Auto) 12 % (24-48) Monocytes (%) (Auto) 10 % (0-9) Eosinophils (%) (Auto) 2 % (0-3) Basophils (%) (Auto) 0 % (0-3) Neutrophils # (Auto) 4.3 x10^3/uL (1.8-7.7) Lymphocytes # (Auto) 0.7 x10^3/uL (1.0-4.8) Monocytes # (Auto) 0.6 x10^3/uL (0.0-1.1) Eosinophils # (Auto) 0.1 x10^3/uL (0.0-0.7) Basophils # (Auto) 0.0 x10^3/uL (0.0-0.2) Sodium Level 140 mmol/L (136-145) Potassium Level 5.6 mmol/L (3.5-5.1) Chloride Level 104 mmol/L (98-107) Carbon Dioxide Level 29 mmol/L (21-32) Anion Gap 7 (6-14) Blood Urea Nitrogen 44 mg/dL (7-20) Creatinine 5.8 mg/dL (0.6-1.0) Estimated GFR (Cockcroft-Gault) 8.4 Glucose Level 112 mg/dL (70-99) Calcium Level 7.7 mg/dL (8.5-10.1) Phosphorus Level 5.1 mg/dL (2.6-4.7) Magnesium Level 2.3 mg/dL (1.8-2.4) Glucose (Fingerstick) 129 mg/dL (70-99) 100 mg/dL (70-99) Assessment and Plan Assessmemt and Plan Problems Medical Problems: (1) Profound anemia Status: Acute Comment Review of Relevant I have reviewed the following items rose (where applicable) has been applied. Labs Laboratory Tests Test 04/20/20 16:30 04/21/20 05:40 04/21/20 09:18 04/21/20 17:11 White Blood Count 6.4 x10^3/uL (4.0-11.0) 5.7 x10^3/uL (4.0-11.0) Red Blood Count 1.76 x10^6/uL (3.50-5.40) 2.10 x10^6/uL (3.50-5.40) Hemoglobin 5.4 g/dL (12.0-15.5) 6.5 g/dL (12.0-15.5) Hematocrit 16.6 % (36.0-47.0) 19.6 % (36.0-47.0) Mean Corpuscular Volume 94 fL (79-100) 93 fL (79-100) Mean Corpuscular Hemoglobin 31 pg (25-35) 31 pg (25-35) Mean Corpuscular Hemoglobin Concent 33 g/dL (31-37) 33 g/dL (31-37) Red Cell Distribution Width 20.8 % (11.5-14.5) 19.2 % (11.5-14.5) Platelet Count 245 x10^3/uL (140-400) 238 x10^3/uL (140-400) Neutrophils (%) (Auto) 79 % (31-73) 76 % (31-73) Lymphocytes (%) (Auto) 9 % (24-48) 12 % (24-48) Monocytes (%) (Auto) 10 % (0-9) 10 % (0-9) Eosinophils (%) (Auto) 1 % (0-3) 2 % (0-3) Basophils (%) (Auto) 1 % (0-3) 0 % (0-3) Neutrophils # (Auto) 5.1 x10^3/uL (1.8-7.7) 4.3 x10^3/uL (1.8-7.7) Lymphocytes # (Auto) 0.6 x10^3/uL (1.0-4.8) 0.7 x10^3/uL (1.0-4.8) Monocytes # (Auto) 0.7 x10^3/uL (0.0-1.1) 0.6 x10^3/uL (0.0-1.1) Eosinophils # (Auto) 0.0 x10^3/uL (0.0-0.7) 0.1 x10^3/uL (0.0-0.7) Basophils # (Auto) 0.1 x10^3/uL (0.0-0.2) 0.0 x10^3/uL (0.0-0.2) Platelet Estimate Adequate (ADEQUATE) Polychromasia Slight Poikilocytosis Slight Basophilic Stippling Present Anisocytosis Mod Ovalocytes Present Schistocytes Occ Sodium Level 141 mmol/L (136-145) 140 mmol/L (136-145) Potassium Level 4.9 mmol/L (3.5-5.1) 5.6 mmol/L (3.5-5.1) Chloride Level 103 mmol/L (98-107) 104 mmol/L (98-107) Carbon Dioxide Level 29 mmol/L (21-32) 29 mmol/L (21-32) Anion Gap 9 (6-14) 7 (6-14) Blood Urea Nitrogen 39 mg/dL (7-20) 44 mg/dL (7-20) Creatinine 4.8 mg/dL (0.6-1.0) 5.8 mg/dL (0.6-1.0) Estimated GFR (Cockcroft-Gault) 10.5 8.4 Glucose Level 106 mg/dL (70-99) 112 mg/dL (70-99) Calcium Level 8.1 mg/dL (8.5-10.1) 7.7 mg/dL (8.5-10.1) Phosphorus Level 5.1 mg/dL (2.6-4.7) Magnesium Level 2.3 mg/dL (1.8-2.4) Glucose (Fingerstick) 129 mg/dL (70-99) 100 mg/dL (70-99) Laboratory Tests Test 04/21/20 05:40 04/21/20 09:18 04/21/20 17:11 White Blood Count 5.7 x10^3/uL (4.0-11.0) Red Blood Count 2.10 x10^6/uL (3.50-5.40) Hemoglobin 6.5 g/dL (12.0-15.5) Hematocrit 19.6 % (36.0-47.0) Mean Corpuscular Volume 93 fL (79-100) Mean Corpuscular Hemoglobin 31 pg (25-35) Mean Corpuscular Hemoglobin Concent 33 g/dL (31-37) Red Cell Distribution Width 19.2 % (11.5-14.5) Platelet Count 238 x10^3/uL (140-400) Neutrophils (%) (Auto) 76 % (31-73) Lymphocytes (%) (Auto) 12 % (24-48) Monocytes (%) (Auto) 10 % (0-9) Eosinophils (%) (Auto) 2 % (0-3) Basophils (%) (Auto) 0 % (0-3) Neutrophils # (Auto) 4.3 x10^3/uL (1.8-7.7) Lymphocytes # (Auto) 0.7 x10^3/uL (1.0-4.8) Monocytes # (Auto) 0.6 x10^3/uL (0.0-1.1) Eosinophils # (Auto) 0.1 x10^3/uL (0.0-0.7) Basophils # (Auto) 0.0 x10^3/uL (0.0-0.2) Sodium Level 140 mmol/L (136-145) Potassium Level 5.6 mmol/L (3.5-5.1) Chloride Level 104 mmol/L (98-107) Carbon Dioxide Level 29 mmol/L (21-32) Anion Gap 7 (6-14) Blood Urea Nitrogen 44 mg/dL (7-20) Creatinine 5.8 mg/dL (0.6-1.0) Estimated GFR (Cockcroft-Gault) 8.4 Glucose Level 112 mg/dL (70-99) Calcium Level 7.7 mg/dL (8.5-10.1) Phosphorus Level 5.1 mg/dL (2.6-4.7) Magnesium Level 2.3 mg/dL (1.8-2.4) Glucose (Fingerstick) 129 mg/dL (70-99) 100 mg/dL (70-99) Medications Current Medications Ondansetron HCl (Zofran) 4 mg PRN Q8HRS PRN IV NAUSEA/VOMITING; Start 04/20/20 at 17:15; Stop 04/20/20 at 19:17; Status DC Fentanyl Citrate (Fentanyl 2ml Vial) 50 mcg 1X ONCE IV ; Start 04/20/20 at 18:30; Stop 04/20/20 at 18:29; Status DC Sennosides (Senna) 17.2 mg PRN BID PRN PO CONSTIPATION; Start 04/20/20 at 19:15 Docusate Sodium (Colace) 100 mg PRN DAILY PRN PO HARD STOOLS; Start 04/20/20 at 19:15 Ondansetron HCl (Zofran) 4 mg PRN Q6HRS PRN IVP NAUSEA/VOMITING; Start 04/20/20 at 19:15 Potassium Chloride (Klor-Con) 40 meq 1X PRN PO PER PROTOCOL; Start 04/20/20 at 19:15; Status UNV Magnesium Oxide (Magnesium Oxide) 400 mg BID PO ; Start 04/20/20 at 21:00; Stop 04/22/20 at 09:01; Status UNV Potassium Chloride/Water 100 ml @ 100 mls/hr Q1H IV ; Start 04/20/20 at 19:15; Stop 04/20/20 at 23:14; Status UNV Magnesium Sulfate 50 ml @ 25 mls/hr Q24H IV ; Start 04/20/20 at 19:15; Stop 04/22/20 at 21:14; Status UNV Potassium Chloride/Water 100 ml @ 100 mls/hr Q1H PRN IV low k; Start 04/20/20 at 19:15; Status UNV Insulin Human Lispro (HumaLOG) 0-7 UNITS TIDWMEALS SQ ; Start 04/21/20 at 08:00 Dextrose (Dextrose 50%-Water Syringe) 12.5 gm PRN Q15MIN PRN IV SEE COMMENTS; Start 04/20/20 at 19:15 Acetaminophen (Tylenol) 650 mg PRN Q4HRS PRN PO TEMP OVER 100.4F OR MILD PAIN; Start 04/20/20 at 19:15 Heparin Sodium (Porcine) (Heparin Sodium) 5,000 unit Q12HR SQ ; Start 04/20/20 at 21:00 Info (Non-Icu Electrolyte Protocol) 1 ea CONT PRN PRN MC SEE COMMENTS; Start 04/20/20 at 19:30 Darbepoetin Mike (ARANESP for DIALYSIS PTS) 60 mcg WEEKLYHS SQ ; Start 04/21/20 at 21:00 Info (PHARMACY MONITORING -- do not chart) 1 each PRN DAILY PRN MC SEE COMMENTS; Start 04/21/20 at 13:00 Info (PHARMACY MONITORING -- do not chart) 1 each PRN DAILY PRN MC SEE COMMENTS; Start 04/21/20 at 13:00 Active Scripts Active Omeprazole-Bicarb 20-1,100 Cap (Omeprazole/Sodium Bicarbonate) 1 Each Capsule 1 Cap PO DAILY 60 Days Reported Eliquis (Apixaban) 2.5 Mg Tablet 2.5 Mg PO BID Sarahy-Angelia Tablet (Folic Acid/Vitamin B Comp W-C) 0.8 Mg Tablet 1 Tab PO TIDWMEALS 30 Days Vitamin D2 (Ergocalciferol (Vitamin D2)) 1,250 Mcg Capsule 1,250 Mcg PO WEEKLY Donepezil Hcl 5 Mg Tablet 5 Mg PO QHS Ziprasidone Hcl 20 Mg Capsule 20 Mg PO HS Hydralazine Hcl 25 Mg Tablet 2 Tab PO BID Vitals/I & O Vital Sign - Last 24 Hours 04/20/20 04/20/20 04/20/20 04/20/20 18:01 18:35 19:53 19:54 Temp 98.0 97.6 98.0 97.6 Pulse 84 88 77 Resp 20 18 B/P (MAP) 135/63 (87) 149/42 (77) 139/79 (99) Pulse Ox 95 95 94 O2 Delivery Room Air Room Air Room Air Room Air 04/20/20 04/20/20 04/21/20 04/21/20 19:57 22:36 00:51 01:23 Temp 97.8 97.9 97.6 97.7 97.8 97.9 97.6 97.7 Pulse 87 82 85 86 Resp 20 18 18 18 B/P (MAP) 126/58 136/36 (69) 108/23 (51) 136/55 Pulse Ox 98 97 O2 Delivery Room Air Room Air 04/21/20 04/21/20 04/21/20 04/21/20 02:23 02:59 03:22 04:25 Temp 97.6 97.6 97.7 97.8 97.6 97.6 97.7 97.8 Pulse 76 75 79 83 Resp 18 18 18 20 B/P (MAP) 133/56 131/73 (92) 122/57 123/80 Pulse Ox 91 O2 Delivery Room Air 04/21/20 04/21/20 04/21/20 04/21/20 05:17 07:00 08:00 11:00 Temp 97.9 97.9 97.9 97.9 Pulse 60 75 75 Resp 20 B/P (MAP) 146/61 137/74 (95) 144/87 (106) Pulse Ox 94 98 O2 Delivery Room Air Room Air Room Air 04/21/20 04/21/20 04/21/20 11:36 12:53 13:10 Temp 97.9 98.2 98.3 97.9 98.2 98.3 Pulse 74 63 63 Resp B/P (MAP) 144/87 127/98 148/50 Intake and Output 04/20/20 04/20/20 04/21/20 15:00 23:00 07:00 Intake Total 520 ml Balance 520 ml Justicifation of Admission Dx: Justifications for Admission: Justification of Admission Dx: Yes (PROFOUND ANEMIA) RUSSELL ESCALERA MD Apr 21, 2020 17:45
[2020-04-21] MEDS ORDERED: DARBEPOETIN ALFA 60 MCG/0.3 ML DISP.SYRIN. SQ SCH (21:00)
[2020-04-22 03:42] VITALS: BP 133/33
[2020-04-22 07:00] VITALS: BP 141/41
--- NOTE | 2020-04-22 07:15 | PDOC ---
PROGRESS NOTES Date of Service: DATE: 04/22/20 TIME: 07:09 Chief Complaint Chief Complaint Acute anemia due to ESRD Volume overload Diabetes mellitus type 2 Hypertension Hypocalcemia Alzheimers dementia Plan Follow h and h Pending result will determine whether she needs another PRBC transfusion Nephrology consult HD as per inside sales consultant Heparin for DVT prophylaxis Renal diet Full code Discussed with RN and SW Disposition if h and h stable she can transfer back to SNU Surrogate decision maker is the daughter History of Present Illness History of Present Illness 04/21 Patient sitting in chair in no acute distress. Hemoglobin noted, patient is quite upset because she does not want to be in the hospital, she does not want to be readmitted frequently, explained to her the need for transfusion and that it is going to be a chronic condition due to her end-stage renal disease and hemodialysis dependence. Patient does not seem to comprehend the fact that due to the dialysis treatment she will need constant monitoring and patient also has had a history of nonadherence to treatment plans previously. Discussed with nursing staff 04/22 Patient pleasantly demented, she does not seem to know she is in the hospital, plan of care discussed in detail. i am not sure if she does comprehend her situation. Reassurance provided. Vitals Vitals Vital Signs Date Time Temp Pulse Resp B/P (MAP) Pulse Ox O2 Delivery O2 Flow Rate FiO2 04/22/20 03:42 98.4 75 16 133/33 (66) 93 Room Air 98.4 Physical Exam Physical Exam GEN: No apparent distress. Alert and oriented HEENT: Normal cephalic, atraumatic, external auditory canals are patent EYES: Extraocular muscles are intact, pupil are equally round and reactive to light and accommodation MUSCULOSKELETAL: Well developed , well nourished, good range of motion ENDOCRINE: No thyromegaly was palpated LYMPHATICS: No cervical chain or axillary nodes were noted HEMATOPOIETIC: No bruising NECK: Supple, no JVD, no thyromegaly was noted LUNGS: Clear to auscultation in all lung ruiz without rhonchi or wheezing HEART: RRR, S!, S2 present. Peripheral pulses intact, no obvious murmurs noted ABDOMEN: Soft, nontender. Positive bowel sounds, no organomegaly, normal bowel sounds EXTREMITIES: Without clubbing, cyanosis, or edema. Pedal pulses intact. Negative Homans sign NEUROLOGIC: Normal speech and tone. A&O x 3, moves all extremities, no obvious focal deficits, PSYCHIATRIC: Normal affect, normal mood. Stable SKIN: No ulcerations or rashes, good skin turgor, no jaundice VASCULAR: Good capillary refill, neurovascular bundle appears to be intact Lungs: Clear Labs LABS Laboratory Tests Test 04/21/20 09:18 04/21/20 17:11 04/21/20 21:18 Glucose (Fingerstick) 129 mg/dL (70-99) 100 mg/dL (70-99) 157 mg/dL (70-99) Assessment and Plan Assessmemt and Plan Problems Medical Problems: (1) Profound anemia Status: Acute Comment Review of Relevant I have reviewed the following items rose (where applicable) has been applied. Labs Laboratory Tests Test 04/20/20 16:30 04/21/20 05:40 04/21/20 09:18 04/21/20 17:11 White Blood Count 6.4 x10^3/uL (4.0-11.0) 5.7 x10^3/uL (4.0-11.0) Red Blood Count 1.76 x10^6/uL (3.50-5.40) 2.10 x10^6/uL (3.50-5.40) Hemoglobin 5.4 g/dL (12.0-15.5) 6.5 g/dL (12.0-15.5) Hematocrit 16.6 % (36.0-47.0) 19.6 % (36.0-47.0) Mean Corpuscular Volume 94 fL (79-100) 93 fL (79-100) Mean Corpuscular Hemoglobin 31 pg (25-35) 31 pg (25-35) Mean Corpuscular Hemoglobin Concent 33 g/dL (31-37) 33 g/dL (31-37) Red Cell Distribution Width 20.8 % (11.5-14.5) 19.2 % (11.5-14.5) Platelet Count 245 x10^3/uL (140-400) 238 x10^3/uL (140-400) Neutrophils (%) (Auto) 79 % (31-73) 76 % (31-73) Lymphocytes (%) (Auto) 9 % (24-48) 12 % (24-48) Monocytes (%) (Auto) 10 % (0-9) 10 % (0-9) Eosinophils (%) (Auto) 1 % (0-3) 2 % (0-3) Basophils (%) (Auto) 1 % (0-3) 0 % (0-3) Neutrophils # (Auto) 5.1 x10^3/uL (1.8-7.7) 4.3 x10^3/uL (1.8-7.7) Lymphocytes # (Auto) 0.6 x10^3/uL (1.0-4.8) 0.7 x10^3/uL (1.0-4.8) Monocytes # (Auto) 0.7 x10^3/uL (0.0-1.1) 0.6 x10^3/uL (0.0-1.1) Eosinophils # (Auto) 0.0 x10^3/uL (0.0-0.7) 0.1 x10^3/uL (0.0-0.7) Basophils # (Auto) 0.1 x10^3/uL (0.0-0.2) 0.0 x10^3/uL (0.0-0.2) Platelet Estimate Adequate (ADEQUATE) Polychromasia Slight Poikilocytosis Slight Basophilic Stippling Present Anisocytosis Mod Ovalocytes Present Schistocytes Occ Sodium Level 141 mmol/L (136-145) 140 mmol/L (136-145) Potassium Level 4.9 mmol/L (3.5-5.1) 5.6 mmol/L (3.5-5.1) Chloride Level 103 mmol/L (98-107) 104 mmol/L (98-107) Carbon Dioxide Level 29 mmol/L (21-32) 29 mmol/L (21-32) Anion Gap 9 (6-14) 7 (6-14) Blood Urea Nitrogen 39 mg/dL (7-20) 44 mg/dL (7-20) Creatinine 4.8 mg/dL (0.6-1.0) 5.8 mg/dL (0.6-1.0) Estimated GFR (Cockcroft-Gault) 10.5 8.4 Glucose Level 106 mg/dL (70-99) 112 mg/dL (70-99) Calcium Level 8.1 mg/dL (8.5-10.1) 7.7 mg/dL (8.5-10.1) Phosphorus Level 5.1 mg/dL (2.6-4.7) Magnesium Level 2.3 mg/dL (1.8-2.4) Glucose (Fingerstick) 129 mg/dL (70-99) 100 mg/dL (70-99) Test 04/21/20 21:18 Glucose (Fingerstick) 157 mg/dL (70-99) Laboratory Tests Test 04/21/20 09:18 04/21/20 17:11 04/21/20 21:18 Glucose (Fingerstick) 129 mg/dL (70-99) 100 mg/dL (70-99) 157 mg/dL (70-99) Medications Current Medications Ondansetron HCl (Zofran) 4 mg PRN Q8HRS PRN IV NAUSEA/VOMITING; Start 04/20/20 at 17:15; Stop 04/20/20 at 19:17; Status DC Fentanyl Citrate (Fentanyl 2ml Vial) 50 mcg 1X ONCE IV ; Start 04/20/20 at 18:30; Stop 04/20/20 at 18:29; Status DC Sennosides (Senna) 17.2 mg PRN BID PRN PO CONSTIPATION; Start 04/20/20 at 19:15 Docusate Sodium (Colace) 100 mg PRN DAILY PRN PO HARD STOOLS; Start 04/20/20 at 19:15 Ondansetron HCl (Zofran) 4 mg PRN Q6HRS PRN IVP NAUSEA/VOMITING; Start 04/20/20 at 19:15 Potassium Chloride (Klor-Con) 40 meq 1X PRN PO PER PROTOCOL; Start 04/20/20 at 19:15; Status UNV Magnesium Oxide (Magnesium Oxide) 400 mg BID PO ; Start 04/20/20 at 21:00; Stop 04/22/20 at 09:01; Status UNV Potassium Chloride/Water 100 ml @ 100 mls/hr Q1H IV ; Start 04/20/20 at 19:15; Stop 04/20/20 at 23:14; Status UNV Magnesium Sulfate 50 ml @ 25 mls/hr Q24H IV ; Start 04/20/20 at 19:15; Stop 04/22/20 at 21:14; Status UNV Potassium Chloride/Water 100 ml @ 100 mls/hr Q1H PRN IV low k; Start 04/20/20 at 19:15; Status UNV Insulin Human Lispro (HumaLOG) 0-7 UNITS TIDWMEALS SQ ; Start 04/21/20 at 08:00 Dextrose (Dextrose 50%-Water Syringe) 12.5 gm PRN Q15MIN PRN IV SEE COMMENTS; Start 04/20/20 at 19:15 Acetaminophen (Tylenol) 650 mg PRN Q4HRS PRN PO TEMP OVER 100.4F OR MILD PAIN; Start 04/20/20 at 19:15 Heparin Sodium (Porcine) (Heparin Sodium) 5,000 unit Q12HR SQ ; Start 04/20/20 at 21:00 Info (Non-Icu Electrolyte Protocol) 1 ea CONT PRN PRN MC SEE COMMENTS; Start 04/20/20 at 19:30 Darbepoetin Mike (ARANESP for DIALYSIS PTS) 60 mcg WEEKLYHS SQ Last administered on 04/21/20at 20:57; Start 04/21/20 at 21:00 Info (PHARMACY MONITORING -- do not chart) 1 each PRN DAILY PRN MC SEE COMMENTS; Start 04/21/20 at 13:00 Info (PHARMACY MONITORING -- do not chart) 1 each PRN DAILY PRN MC SEE COMMENTS; Start 04/21/20 at 13:00 Active Scripts Active Omeprazole-Bicarb 20-1,100 Cap (Omeprazole/Sodium Bicarbonate) 1 Each Capsule 1 Cap PO DAILY 60 Days Reported Eliquis (Apixaban) 2.5 Mg Tablet 2.5 Mg PO BID Sarahy-Angelia Tablet (Folic Acid/Vitamin B Comp W-C) 0.8 Mg Tablet 1 Tab PO TIDWMEALS 30 Days Vitamin D2 (Ergocalciferol (Vitamin D2)) 1,250 Mcg Capsule 1,250 Mcg PO WEEKLY Donepezil Hcl 5 Mg Tablet 5 Mg PO QHS Ziprasidone Hcl 20 Mg Capsule 20 Mg PO HS Hydralazine Hcl 25 Mg Tablet 2 Tab PO BID Vitals/I & O Vital Sign - Last 24 Hours 04/21/20 04/21/20 04/21/20 04/21/20 08:00 11:00 11:36 12:53 Temp 97.9 97.9 98.2 97.9 97.9 98.2 Pulse 75 74 63 Resp 20 20 B/P (MAP) 144/87 (106) 144/87 127/98 Pulse Ox 98 O2 Delivery Room Air Room Air 04/21/20 04/21/20 04/21/20 04/21/20 13:10 19:58 20:20 22:10 Temp 98.3 98.9 98.7 98.3 98.9 98.7 Pulse 63 88 82 Resp 18 18 16 B/P (MAP) 148/50 127/40 (69) 137/42 (73) Pulse Ox 93 92 O2 Delivery Room Air Room Air Room Air 04/22/20 03:42 Temp 98.4 98.4 Pulse 75 Resp 16 B/P (MAP) 133/33 (66) Pulse Ox 93 O2 Delivery Room Air Intake and Output 04/21/20 04/21/20 04/22/20 15:00 23:00 07:00 Intake Total 500 ml 400 ml 100 ml Output Total 0 ml Balance 500 ml 400 ml 100 ml Justicifation of Admission Dx: Justifications for Admission: Justification of Admission Dx: Yes (PROFOUND ANEMIA) RUSSELL ESCALERA MD Apr 22, 2020 07:15
[2020-04-22] MEDS: INSULIN LISPRO 300 UNITS/3 ML VIAL. SQ SCH ×3 (08:00→17:00)
[2020-04-22] MEDS: HEPARIN for SUB-Q USE 5,000 UNIT/ML VIAL. SQ SCH ×2 (09:06→21:20)
[2020-04-22 09:28] LABS: BASO % 1 % (0-3); EOS # 0.1 x10^3/uL (0.0-0.7); EOS % 2 % (0-3); HEMOGLOBIN 8.7 g/dL (12.0-15.5); LYMPH # 0.7 x10^3/uL (1.0-4.8); LYMPH % 12 % (24-48); MEAN CORPUSCULAR HEMOGLOBIN 31 pg (25-35); MEAN CORPUSCULAR HGB CONC 34 g/dL (31-37); MEAN CORPUSCULAR VOLUME 93 fL (79-100); MONO # 0.6 x10^3/uL (0.0-1.1); MONO % 11 % (0-9); NEUT # 4.2 x10^3/uL (1.8-7.7); NEUT % 75 % (31-73); PLATELET COUNT 205 x10^3/uL (140-400); RED BLOOD COUNT 2.81 x10^6/uL (3.50-5.40); RED CELL DISTRIBUTION WIDTH 17.7 % (11.5-14.5); WHITE BLOOD COUNT 5.6 x10^3/uL (4.0-11.0)
--- NOTE | 2020-04-22 10:21 | PDOC ---
DATE OF SERVICE DATE: 04/22/20 TIME: 10:21 SUBJECTIVE ROS Stable OBJECTIVE Vital Signs Vital Signs Date Time Temp Pulse Resp B/P (MAP) Pulse Ox O2 Delivery O2 Flow Rate FiO2 04/22/20 07:00 98.0 61 18 141/41 (74) 99 Room Air 98.0 I & 0 Intake and Output 04/22/20 07:00 Intake Total 1000 ml Output Total 0 ml Balance 1000 ml Intake Oral 980 ml Blood Product IV Normal Saline Flush 20 ml Output Urine Total 0 ml # Bowel Movements 2 PHYSICAL EXAM Physical Exam General Appearance: no apparent distress, HEEN OM moist Neck Supple Skin: No rash Respiratory: decreased breath sounds at bases, Non labored Heart: S1S2 Abdomen: soft, bowel sounds present Genitourinary: No houser Extremities: No LE edema Neurology: baseline dementia No houser DIAGNOSIS/ASSESSMENT Assessment & Plan ESRD - On HD MWF No indicaton for HD today Access- AVG Acute Anemia- frequent hospitalizations requiring PRBC s/p EGD on 04/05 -mostly-healed, but likely erosive at baseline, esophagitis at 35 cm,Non-specific prepyloric erythema; antral biopsies done. Hypertension - stable DM II Hx of DVT COMMENT/RELEVANT DATA Meds Current Medications Medications (Trade) Dose Ordered Sig/Diana Start Time Stop Time Status Last Admin Dose Admin Acetaminophen (Tylenol) 650 mg PRN Q4HRS PRN 04/20/20 19:15 Darbepoetin Mike (ARANESP for DIALYSIS PTS) 60 mcg WEEKLYHS 04/21/20 21:00 04/21/20 20:57 60 MCG Dextrose (Dextrose 50%-Water Syringe) 12.5 gm PRN Q15MIN PRN 04/20/20 19:15 Docusate Sodium (Colace) 100 mg PRN DAILY PRN 04/20/20 19:15 Fentanyl Citrate (Fentanyl 2ml Vial) 50 mcg 1X ONCE 04/20/20 18:30 04/20/20 18:29 DC Heparin Sodium (Porcine) (Heparin Sodium) 5,000 unit Q12HR 04/20/20 21:00 04/22/20 09:06 5,000 UNIT Info (Non-Icu Electrolyte Protocol) 1 ea CONT PRN PRN 04/20/20 19:30 Info (PHARMACY MONITORING -- do not chart) 1 each PRN DAILY PRN 04/21/20 13:00 Insulin Human Lispro (HumaLOG) 0-7 UNITS TIDWMEALS 04/21/20 08:00 Magnesium Oxide (Magnesium Oxide) 400 mg BID 04/20/20 21:00 04/22/20 09:01 UNV Magnesium Sulfate 50 ml @ 25 mls/hr Q24H 04/20/20 19:15 04/22/20 21:14 UNV Ondansetron HCl (Zofran) 4 mg PRN Q6HRS PRN 04/20/20 19:15 Potassium Chloride/Water 100 ml @ 100 mls/hr Q1H PRN 04/20/20 19:15 UNV Potassium Chloride (Klor-Con) 40 meq 1X PRN 04/20/20 19:15 UNV Sennosides (Senna) 17.2 mg PRN BID PRN 04/20/20 19:15 Lab Laboratory Tests Test 04/21/20 17:11 04/21/20 21:18 04/22/20 07:39 04/22/20 09:00 Glucose (Fingerstick) 100 mg/dL (70-99) 157 mg/dL (70-99) 92 mg/dL (70-99) White Blood Count 5.6 x10^3/uL (4.0-11.0) Red Blood Count 2.81 x10^6/uL (3.50-5.40) Hemoglobin 8.7 g/dL (12.0-15.5) Hematocrit 26.0 % (36.0-47.0) Mean Corpuscular Volume 93 fL (79-100) Mean Corpuscular Hemoglobin 31 pg (25-35) Mean Corpuscular Hemoglobin Concent 34 g/dL (31-37) Red Cell Distribution Width 17.7 % (11.5-14.5) Platelet Count 205 x10^3/uL (140-400) Neutrophils (%) (Auto) 75 % (31-73) Lymphocytes (%) (Auto) 12 % (24-48) Monocytes (%) (Auto) 11 % (0-9) Eosinophils (%) (Auto) 2 % (0-3) Basophils (%) (Auto) 1 % (0-3) Neutrophils # (Auto) 4.2 x10^3/uL (1.8-7.7) Lymphocytes # (Auto) 0.7 x10^3/uL (1.0-4.8) Monocytes # (Auto) 0.6 x10^3/uL (0.0-1.1) Eosinophils # (Auto) 0.1 x10^3/uL (0.0-0.7) Basophils # (Auto) 0.0 x10^3/uL (0.0-0.2) Results All relevant outside records, renal labs, imaging studies, telemetry/EKG's were reviewed. Justicifation of Admission Dx: Justifications for Admission: Justification of Admission Dx: Yes (PROFOUND ANEMIA) SALVADOR KOWALSKI MD Apr 22, 2020 10:21
[2020-04-22 11:04] VITALS: BP 109/39
--- NOTE | 2020-04-22 13:23 | NUR ---
Pt with 12 beat run of V-tach. Dr. David reeves. Orders recieved for labs (BMP, Mag, Phos, Calcium). If patient has any more V-Tach he wants cardiology consulted. Pt resting at this time. Call Light in reach. Will continue to monitor and follow plan of care.
[2020-04-22 14:24] LABS: CREATININE 4.3 mg/dL (0.6-1.0); GFR 11.9; POTASSIUM 4.4 mmol/L (3.5-5.1)
[2020-04-22 14:32] LABS: MAGNESIUM 2.2 mg/dL (1.8-2.4)
[2020-04-22 15:04] VITALS: BP 124/64
[2020-04-22] MEDS: ACETAMINOPHEN 325 MG TABLET. PO PRN (16:18)
[2020-04-22 19:45] VITALS: BP 134/84
[2020-04-23 00:50] VITALS: BP 107/49
[2020-04-23 07:00] VITALS: BP 123/70
[2020-04-23] MEDS: INSULIN LISPRO 300 UNITS/3 ML VIAL. SQ SCH ×3 (07:48→17:00)
[2020-04-23] MEDS: HEPARIN for SUB-Q USE 5,000 UNIT/ML VIAL. SQ SCH ×2 (09:22→20:43)
[2020-04-23 11:00] VITALS: BP 138/71
--- NOTE | 2020-04-23 11:20 | PDOC ---
PROGRESS NOTES Date of Service: DATE: 04/23/20 TIME: 11:18 Chief Complaint Chief Complaint Acute anemia due to ESRD Volume overload Diabetes mellitus type 2 Hypertension Hypocalcemia Alzheimers dementia Plan Follow h and h Pending result will determine whether she needs another PRBC transfusion Nephrology consult HD as per protection consultant Heparin for DVT prophylaxis Renal diet Full code Discussed with RN and SW Disposition if h and h stable she can transfer back to SNU Surrogate decision maker is the daughter History of Present Illness History of Present Illness 04/21 Patient sitting in chair in no acute distress. Hemoglobin noted, patient is quite upset because she does not want to be in the hospital, she does not want to be readmitted frequently, explained to her the need for transfusion and that it is going to be a chronic condition due to her end-stage renal disease and hemodialysis dependence. Patient does not seem to comprehend the fact that due to the dialysis treatment she will need constant monitoring and patient also has had a history of nonadherence to treatment plans previously. Discussed with nursing staff 04/22 Patient pleasantly demented, she does not seem to know she is in the hospital, plan of care discussed in detail. i am not sure if she does comprehend her situation. Reassurance provided. No acute events reported overnight, case discussed with nursing staff patient in no acute distress no complaints during my visit 04/23 No acute events reported overnight, case discussed with nursing staff patient in no acute distress no complaints during my visit, continues to be pleasantly demented patient is scheduled for dialysis in the morning if her H&H remained stable she may be discharged after dialysis Vitals Vitals Vital Signs Date Time Temp Pulse Resp B/P (MAP) Pulse Ox O2 Delivery O2 Flow Rate FiO2 04/23/20 07:00 98.0 76 18 123/70 (87) 91 Room Air 98.0 Physical Exam Physical Exam GEN: No apparent distress. Alert and oriented HEENT: Normal cephalic, atraumatic, external auditory canals are patent EYES: Extraocular muscles are intact, pupil are equally round and reactive to light and accommodation MUSCULOSKELETAL: Well developed , well nourished, good range of motion ENDOCRINE: No thyromegaly was palpated LYMPHATICS: No cervical chain or axillary nodes were noted HEMATOPOIETIC: No bruising NECK: Supple, no JVD, no thyromegaly was noted LUNGS: Clear to auscultation in all lung ruiz without rhonchi or wheezing HEART: RRR, S!, S2 present. Peripheral pulses intact, no obvious murmurs noted ABDOMEN: Soft, nontender. Positive bowel sounds, no organomegaly, normal bowel sounds EXTREMITIES: Without clubbing, cyanosis, or edema. Pedal pulses intact. Negative Homans sign NEUROLOGIC: Normal speech and tone. A&O x 3, moves all extremities, no obvious focal deficits, PSYCHIATRIC: Normal affect, normal mood. Stable SKIN: No ulcerations or rashes, good skin turgor, no jaundice VASCULAR: Good capillary refill, neurovascular bundle appears to be intact Lungs: Clear Labs LABS Laboratory Tests Test 04/22/20 11:35 04/22/20 17:23 04/22/20 20:37 04/23/20 07:28 Glucose (Fingerstick) 111 mg/dL (70-99) 132 mg/dL (70-99) 132 mg/dL (70-99) 108 mg/dL (70-99) Assessment and Plan Assessmemt and Plan Problems Medical Problems: (1) Profound anemia Status: Acute Comment Review of Relevant I have reviewed the following items rose (where applicable) has been applied. Labs Laboratory Tests Test 04/21/20 17:11 04/21/20 21:18 04/22/20 07:39 04/22/20 09:00 Glucose (Fingerstick) 100 mg/dL (70-99) 157 mg/dL (70-99) 92 mg/dL (70-99) White Blood Count 5.6 x10^3/uL (4.0-11.0) Red Blood Count 2.81 x10^6/uL (3.50-5.40) Hemoglobin 8.7 g/dL (12.0-15.5) Hematocrit 26.0 % (36.0-47.0) Mean Corpuscular Volume 93 fL (79-100) Mean Corpuscular Hemoglobin 31 pg (25-35) Mean Corpuscular Hemoglobin Concent 34 g/dL (31-37) Red Cell Distribution Width 17.7 % (11.5-14.5) Platelet Count 205 x10^3/uL (140-400) Neutrophils (%) (Auto) 75 % (31-73) Lymphocytes (%) (Auto) 12 % (24-48) Monocytes (%) (Auto) 11 % (0-9) Eosinophils (%) (Auto) 2 % (0-3) Basophils (%) (Auto) 1 % (0-3) Neutrophils # (Auto) 4.2 x10^3/uL (1.8-7.7) Lymphocytes # (Auto) 0.7 x10^3/uL (1.0-4.8) Monocytes # (Auto) 0.6 x10^3/uL (0.0-1.1) Eosinophils # (Auto) 0.1 x10^3/uL (0.0-0.7) Basophils # (Auto) 0.0 x10^3/uL (0.0-0.2) Sodium Level 139 mmol/L (136-145) Potassium Level 4.4 mmol/L (3.5-5.1) Chloride Level 101 mmol/L (98-107) Carbon Dioxide Level 31 mmol/L (21-32) Anion Gap 7 (6-14) Blood Urea Nitrogen 26 mg/dL (7-20) Creatinine 4.3 mg/dL (0.6-1.0) Estimated GFR (Cockcroft-Gault) 11.9 Glucose Level 128 mg/dL (70-99) Calcium Level 8.0 mg/dL (8.5-10.1) Magnesium Level 2.2 mg/dL (1.8-2.4) Alkaline Phosphatase 98 U/L (46-116) Test 04/22/20 11:35 04/22/20 17:23 04/22/20 20:37 04/23/20 07:28 Glucose (Fingerstick) 111 mg/dL (70-99) 132 mg/dL (70-99) 132 mg/dL (70-99) 108 mg/dL (70-99) Laboratory Tests Test 04/22/20 11:35 04/22/20 17:23 04/22/20 20:37 04/23/20 07:28 Glucose (Fingerstick) 111 mg/dL (70-99) 132 mg/dL (70-99) 132 mg/dL (70-99) 108 mg/dL (70-99) Medications Current Medications Ondansetron HCl (Zofran) 4 mg PRN Q8HRS PRN IV NAUSEA/VOMITING; Start 04/20/20 at 17:15; Stop 04/20/20 at 19:17; Status DC Fentanyl Citrate (Fentanyl 2ml Vial) 50 mcg 1X ONCE IV ; Start 04/20/20 at 18:30; Stop 04/20/20 at 18:29; Status DC Sennosides (Senna) 17.2 mg PRN BID PRN PO CONSTIPATION; Start 04/20/20 at 19:15 Docusate Sodium (Colace) 100 mg PRN DAILY PRN PO HARD STOOLS; Start 04/20/20 at 19:15 Ondansetron HCl (Zofran) 4 mg PRN Q6HRS PRN IVP NAUSEA/VOMITING; Start 04/20/20 at 19:15 Potassium Chloride (Klor-Con) 40 meq 1X PRN PO PER PROTOCOL; Start 04/20/20 at 19:15; Status UNV Magnesium Oxide (Magnesium Oxide) 400 mg BID PO ; Start 04/20/20 at 21:00; Stop 04/22/20 at 09:01; Status UNV Potassium Chloride/Water 100 ml @ 100 mls/hr Q1H IV ; Start 04/20/20 at 19:15; Stop 04/20/20 at 23:14; Status UNV Magnesium Sulfate 50 ml @ 25 mls/hr Q24H IV ; Start 04/20/20 at 19:15; Stop 04/22/20 at 21:14; Status UNV Potassium Chloride/Water 100 ml @ 100 mls/hr Q1H PRN IV low k; Start 04/20/20 at 19:15; Status UNV Insulin Human Lispro (HumaLOG) 0-7 UNITS TIDWMEALS SQ ; Start 04/21/20 at 08:00 Dextrose (Dextrose 50%-Water Syringe) 12.5 gm PRN Q15MIN PRN IV SEE COMMENTS; Start 04/20/20 at 19:15 Acetaminophen (Tylenol) 650 mg PRN Q4HRS PRN PO TEMP OVER 100.4F OR MILD PAIN Last administered on 04/22/20at 16:18; Start 04/20/20 at 19:15 Heparin Sodium (Porcine) (Heparin Sodium) 5,000 unit Q12HR SQ Last administered on 04/23/20at 09:22; Start 04/20/20 at 21:00 Info (Non-Icu Electrolyte Protocol) 1 ea CONT PRN PRN MC SEE COMMENTS; Start 04/20/20 at 19:30 Darbepoetin Mike (ARANESP for DIALYSIS PTS) 60 mcg WEEKLYHS SQ Last administered on 04/21/20at 20:57; Start 04/21/20 at 21:00 Info (PHARMACY MONITORING -- do not chart) 1 each PRN DAILY PRN MC SEE COMMENTS; Start 04/21/20 at 13:00; Stop 04/22/20 at 13:59; Status DC Info (PHARMACY MONITORING -- do not chart) 1 each PRN DAILY PRN MC SEE COMMENTS; Start 04/21/20 at 13:00 Active Scripts Active Omeprazole-Bicarb 20-1,100 Cap (Omeprazole/Sodium Bicarbonate) 1 Each Capsule 1 Cap PO DAILY 60 Days Reported Eliquis (Apixaban) 2.5 Mg Tablet 2.5 Mg PO BID Sarahy-Angelia Tablet (Folic Acid/Vitamin B Comp W-C) 0.8 Mg Tablet 1 Tab PO TIDWMEALS 30 Days Vitamin D2 (Ergocalciferol (Vitamin D2)) 1,250 Mcg Capsule 1,250 Mcg PO WEEKLY Donepezil Hcl 5 Mg Tablet 5 Mg PO QHS Ziprasidone Hcl 20 Mg Capsule 20 Mg PO HS Hydralazine Hcl 25 Mg Tablet 2 Tab PO BID Vitals/I & O Vital Sign - Last 24 Hours 04/22/20 04/22/20 04/23/20 04/23/20 15:04 19:45 00:50 03:45 Temp 98.1 97.9 98.6 98.1 97.9 98.6 Pulse 93 87 85 75 Resp 20 21 22 16 B/P (MAP) 124/64 (84) 134/84 (101) 107/49 (68) Pulse Ox 93 91 94 95 O2 Delivery Room Air Room Air Room Air Room Air 04/23/20 07:00 Temp 98.0 98.0 Pulse 76 Resp 18 B/P (MAP) 123/70 (87) Pulse Ox 91 O2 Delivery Room Air Intake and Output 04/22/20 04/22/20 04/23/20 15:00 23:00 07:00 Intake Total 150 ml 100 ml 180 ml Balance 150 ml 100 ml 180 ml Justicifation of Admission Dx: Justifications for Admission: Justification of Admission Dx: Yes (PROFOUND ANEMIA) RUSSELL ESCALERA MD Apr 23, 2020 11:20
--- NOTE | 2020-04-23 14:45 | PDOC ---
DATE OF SERVICE DATE: 04/23/20 TIME: 14:44 SUBJECTIVE ROS Wants to go home, very upset OBJECTIVE Vital Signs Vital Signs Date Time Temp Pulse Resp B/P (MAP) Pulse Ox O2 Delivery O2 Flow Rate FiO2 04/23/20 11:00 98.7 64 16 138/71 (93) 92 Room Air 98.7 I & 0 Intake and Output 04/23/20 07:00 Intake Total 430 ml Balance 430 ml Intake Oral 430 ml # Voids 2 # Bowel Movements 1 PHYSICAL EXAM Physical Exam General Appearance: no apparent distress, HEEN OM moist Neck Supple Skin: No rash Respiratory: decreased breath sounds at bases, Non labored Heart: S1S2 Abdomen: soft, bowel sounds present Genitourinary: No houser Extremities: No LE edema Neurology: baseline dementia No houser ESRD - On HD MWF No indicaton for HD today Access- AVG Acute Anemia- frequent hospitalizations requiring PRBC s/p EGD on 04/05 -mostly-healed, but likely erosive at baseline, esophagitis at 35 cm,Non-specific prepyloric erythema; antral biopsies done. Hypertension - stable DM II Hx of DVT DIAGNOSIS/ASSESSMENT Assessment & Plan ESRD/ARF: Current fluid and E-lyte status does not necessitate emergent need for dialysis. Will re-evaluate for dialysis in the am and continue on [] schedule. ANEMIA; [] Aranap as ordered, [] Transfuse [] with next HD as needed HTN: Current BP meds as reviewed. See orders for changes. BONE & MINERAL: [] Discussed Plan of Care with family [] at bedside [] over the phone COMMENT/RELEVANT DATA Meds Current Medications Medications (Trade) Dose Ordered Sig/Diana Start Time Stop Time Status Last Admin Dose Admin Acetaminophen (Tylenol) 650 mg PRN Q4HRS PRN 04/20/20 19:15 04/22/20 16:18 650 MG Darbepoetin Mike (ARANESP for DIALYSIS PTS) 60 mcg WEEKLYHS 04/21/20 21:00 04/21/20 20:57 60 MCG Dextrose (Dextrose 50%-Water Syringe) 12.5 gm PRN Q15MIN PRN 04/20/20 19:15 Docusate Sodium (Colace) 100 mg PRN DAILY PRN 04/20/20 19:15 Fentanyl Citrate (Fentanyl 2ml Vial) 50 mcg 1X ONCE 04/20/20 18:30 04/20/20 18:29 DC Heparin Sodium (Porcine) (Heparin Sodium) 5,000 unit Q12HR 04/20/20 21:00 04/23/20 09:22 5,000 UNIT Info (Non-Icu Electrolyte Protocol) 1 ea CONT PRN PRN 04/20/20 19:30 Info (PHARMACY MONITORING -- do not chart) 1 each PRN DAILY PRN 04/21/20 13:00 Insulin Human Lispro (HumaLOG) 0-7 UNITS TIDWMEALS 04/21/20 08:00 Magnesium Oxide (Magnesium Oxide) 400 mg BID 04/20/20 21:00 04/22/20 09:01 UNV Magnesium Sulfate 50 ml @ 25 mls/hr Q24H 04/20/20 19:15 04/22/20 21:14 UNV Ondansetron HCl (Zofran) 4 mg PRN Q6HRS PRN 04/20/20 19:15 Potassium Chloride/Water 100 ml @ 100 mls/hr Q1H PRN 04/20/20 19:15 UNV Potassium Chloride (Klor-Con) 40 meq 1X PRN 04/20/20 19:15 UNV Sennosides (Senna) 17.2 mg PRN BID PRN 04/20/20 19:15 Lab Laboratory Tests Test 04/22/20 17:23 04/22/20 20:37 04/23/20 07:28 04/23/20 11:50 Glucose (Fingerstick) 132 mg/dL (70-99) 132 mg/dL (70-99) 108 mg/dL (70-99) 108 mg/dL (70-99) Results All relevant outside records, renal labs, imaging studies, telemetry/EKG's were reviewed. Justicifation of Admission Dx: Justifications for Admission: Justification of Admission Dx: Yes (PROFOUND ANEMIA) SALVADOR KOWALSKI MD Apr 23, 2020 14:45
[2020-04-23 14:49] VITALS: BP 145/73
--- NOTE | 2020-04-23 17:05 | NUR ---
Insulin non administered at dinner. Patient had eaten two ice cream cups and some yolie crackers at 1600. Pt not sure if she will eat all of her dinner. Pt has not received insulin this visit. Will continue to monitor and follow plan of care.
--- NOTE | 2020-04-23 19:00 | NUR ---
DISCHARGE PLANNING Pt isaac Mendez is at bedside at shift change time. She wanted to discuss discharge planning. Daughter Vanessa states patient has been at [facility] prior to admit due to weakness from last course of illness and hospital stay. Vanessa states patient was previously living with a granddaughter who is now out of town. Vanessa states she is unable to care for the patient at home due to high burden of care especially with the patient's dementia. She becomes tearful when discussing this. I informed the daughter that social work is on the patient's case to help with discharge planning. Vanessa's cell phone number is [phone]. She states she is working in [place] tomorrow but will have her cell phone with her. She states she may not be able to immediately answer due to a work obligation Friday but will be more free to talk about planning Friday and Friday. Vanessa was highly encouraged to keep her cell phone with her and try to answer tomorrow if they need to do discharge planning with her so discharge is not delayed. Vanessa wants to reiterate that at this time there is no one to care for the patient in a home setting. Questions answered to the RNs best ability.
[2020-04-23 19:38] VITALS: BP 134/72
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
[2020-04-23 23:07] VITALS: BP 147/33
[2020-04-24 03:28] VITALS: BP 116/53
[2020-04-24 06:03] LABS: CALCIUM 6.4 mg/dL (8.5-10.1); CREATININE 6.6 mg/dL (0.6-1.0); GFR 7.3; POTASSIUM 4.5 mmol/L (3.5-5.1)
[2020-04-24 07:00] VITALS: BP 122/44
[2020-04-24] MEDS ORDERED: DIALYSIS PATIENT. MC PRN ×2 (07:15)
[2020-04-24] MEDS ORDERED: IV NORMAL SALINE 1000ML BAG 1,000 ML IV PRN ×2 (07:15)
[2020-04-24] MEDS ORDERED: ALBUMIN HUMAN 25% 200 ML IV PRN (07:15)
[2020-04-24] MEDS ORDERED: LIDOCAINE 1% PF 2 ML VIAL. ID ONE (07:30)
[2020-04-24] MEDS: INSULIN LISPRO 300 UNITS/3 ML VIAL. SQ SCH ×3 (08:00→17:00)
--- NOTE | 2020-04-24 08:45 | PDOC ---
[employer] PROGRESS NOTE Date of Service DOS: DATE: 04/24/20 TIME: 08:45 Chief Complaint Chief Complaint A/P: Acute on chronic anemia - improving with transfusion, unclear if there is significant GI loss Malnutrition End-stage renal disease on hemodialysis Nonocclusive DVT in left internal jugular vein Hypocalcemia Moderate protein calorie malnutrition Dementia Acute encephalopathy - noted by daughter to be more confused, could be metabolic due to anemia, but could be due to dementia HTN DM2 Plan Follow h and h Nephrology consult HD as per senior management consultant Renal diet Full code Discussed with RN and SW Surrogate decision maker is the daughter History of Present Illness History of Present Illness Ms Michelle is an 84yo F w/ PMHx dementia, Diabetes-Type II, HTN, ESRD on HD on MWF who was brought here from rehab at [facility] due to agitation and poor responsiveness at dialysis. Found with Hb 5.4, admitted for this. She had recent EGD on 04/06/2020 with resolving gastritis. She has been on eliquis for left IJ DVT. 04/21: Patient does not seem to comprehend the fact that due to the dialysis treatment she will need constant monitoring and patient also has had a history of nonadherence to treatment plans previously. Discussed with nursing staff 04/22: Patient pleasantly demented, she does not seem to know she is in the hospital, plan of care discussed in detail. i am not sure if she does comprehend her situation. Reassurance provided. 04/23: No acute events reported overnight, case discussed with nursing staff patient in no acute distress no complaints during my visit, continues to be pleasantly demented patient is scheduled for dialysis in the morning if her H&H remained stable she may be discharged after dialysis Hb dropped to 7.5 today. She has no complaints today. Vitals/I&O Vitals/I&O: Vital Signs Date Time Temp Pulse Resp B/P (MAP) Pulse Ox O2 Delivery O2 Flow Rate FiO2 04/24/20 07:00 97.6 68 16 122/44 (70) 98 Room Air 97.6 I & O 04/23/20 04/23/20 04/24/20 15:00 23:00 07:00 Intake Total 440 ml 220 ml 550 ml Balance 440 ml 220 ml 550 ml Physical Exam Physical Exam: GEN: No apparent distress. Alert and oriented HEENT: Normal cephalic, atraumatic, external auditory canals are patent EYES: Extraocular muscles are intact, pupil are equally round and reactive to light and accommodation MUSCULOSKELETAL: Well developed , well nourished, good range of motion ENDOCRINE: No thyromegaly was palpated LYMPHATICS: No cervical chain or axillary nodes were noted HEMATOPOIETIC: No bruising NECK: Supple, no JVD, no thyromegaly was noted LUNGS: Clear to auscultation in all lung ruiz without rhonchi or wheezing HEART: RRR, S!, S2 present. Peripheral pulses intact, no obvious murmurs noted ABDOMEN: Soft, nontender. Positive bowel sounds, no organomegaly, normal bowel sounds EXTREMITIES: Without clubbing, cyanosis, or edema. Pedal pulses intact. Negative Homans sign NEUROLOGIC: Normal speech and tone. A&O x 3, moves all extremities, no obvious focal deficits, PSYCHIATRIC: Normal affect, normal mood. Stable SKIN: No ulcerations or rashes, good skin turgor, no jaundice VASCULAR: Good capillary refill, neurovascular bundle appears to be intact Lungs: Clear Labs Labs: Laboratory Tests Test 04/23/20 11:50 04/23/20 16:48 04/23/20 20:59 04/24/20 05:30 Glucose (Fingerstick) 108 mg/dL (70-99) 186 mg/dL (70-99) 122 mg/dL (70-99) Sodium Level 141 mmol/L (136-145) Potassium Level 4.5 mmol/L (3.5-5.1) Chloride Level 105 mmol/L (98-107) Carbon Dioxide Level 27 mmol/L (21-32) Anion Gap 9 (6-14) Blood Urea Nitrogen 50 mg/dL (7-20) Creatinine 6.6 mg/dL (0.6-1.0) Estimated GFR (Cockcroft-Gault) 7.3 Glucose Level 79 mg/dL (70-99) Calcium Level 6.4 mg/dL (8.5-10.1) Test 04/24/20 07:21 Glucose (Fingerstick) 97 mg/dL (70-99) Assessment and Plan Assessmemt and Plan Problems Medical Problems: (1) Profound anemia Status: Acute Comment Review of Relevant I have reviewed the following items rose (where applicable) has been applied. Justifications for Admission Other Justification profound anemia CHARLIE CHAVEZ MD Apr 24, 2020 08:45
[2020-04-24] MEDS: HEPARIN for SUB-Q USE 5,000 UNIT/ML VIAL. SQ SCH ×2 (09:00→19:55)
[2020-04-24 09:09] LABS: BASO % 1 % (0-3); EOS # 0.1 x10^3/uL (0.0-0.7); EOS % 2 % (0-3); HEMATOCRIT 22.6 % (36.0-47.0); HEMOGLOBIN 7.5 g/dL (12.0-15.5); LYMPH # 0.8 x10^3/uL (1.0-4.8); LYMPH % 16 % (24-48); MEAN CORPUSCULAR HEMOGLOBIN 31 pg (25-35); MEAN CORPUSCULAR HGB CONC 33 g/dL (31-37); MEAN CORPUSCULAR VOLUME 94 fL (79-100); MONO # 0.5 x10^3/uL (0.0-1.1); MONO % 10 % (0-9); NEUT # 3.3 x10^3/uL (1.8-7.7); NEUT % 70 % (31-73); PLATELET COUNT 179 x10^3/uL (140-400); RED BLOOD COUNT 2.41 x10^6/uL (3.50-5.40); RED CELL DISTRIBUTION WIDTH 17.7 % (11.5-14.5); WHITE BLOOD COUNT 4.8 x10^3/uL (4.0-11.0)
[2020-04-24] MEDS: ACETAMINOPHEN 325 MG TABLET. PO PRN (10:37)
[2020-04-24 11:59] VITALS: BP 143/43
--- NOTE | 2020-04-24 13:47 | NUR ---
SS following up with discharge planning. SS reviewed pt chart and discussed with pt RN. Pt is currently on room air. Pt walking 300 feet with PT. SS contacted pt's daughter and discussed return to shelter unit vs. home with home healthcare. Pt's daughter agreeable to home with home healthcare and reported that pt had [facility], ; fax [phone], at home. Pt has outpatient dialysis at [facility]. Physician notified. SS will continue to follow for discharge planning.
[2020-04-24 15:05] VITALS: BP 114/49
--- NOTE | 2020-04-24 15:23 | PDOC ---
Renal-Progress Notes Subjective Notes Notes NO NEW COMPLAINTS History of Present Illness Hx of present illness STABLE Vitals Vitals Vital Signs Date Time Temp Pulse Resp B/P (MAP) Pulse Ox O2 Delivery O2 Flow Rate FiO2 04/24/20 15:05 98.4 77 18 114/49 (70) 98 Room Air 98.4 Weight Weight [ ] I.O. Intake and Output Intake and Output 04/24/20 07:00 Intake Total 1210 ml Balance 1210 ml Intake Oral 1210 ml # Voids 5 Labs Labs Laboratory Tests Test 04/23/20 16:48 04/23/20 20:59 04/24/20 05:30 04/24/20 07:21 Glucose (Fingerstick) 186 mg/dL (70-99) 122 mg/dL (70-99) 97 mg/dL (70-99) Sodium Level 141 mmol/L (136-145) Potassium Level 4.5 mmol/L (3.5-5.1) Chloride Level 105 mmol/L (98-107) Carbon Dioxide Level 27 mmol/L (21-32) Anion Gap 9 (6-14) Blood Urea Nitrogen 50 mg/dL (7-20) Creatinine 6.6 mg/dL (0.6-1.0) Estimated GFR (Cockcroft-Gault) 7.3 Glucose Level 79 mg/dL (70-99) Calcium Level 6.4 mg/dL (8.5-10.1) Test 04/24/20 08:30 04/24/20 11:10 White Blood Count 4.8 x10^3/uL (4.0-11.0) Red Blood Count 2.41 x10^6/uL (3.50-5.40) Hemoglobin 7.5 g/dL (12.0-15.5) Hematocrit 22.6 % (36.0-47.0) Mean Corpuscular Volume 94 fL (79-100) Mean Corpuscular Hemoglobin 31 pg (25-35) Mean Corpuscular Hemoglobin Concent 33 g/dL (31-37) Red Cell Distribution Width 17.7 % (11.5-14.5) Platelet Count 179 x10^3/uL (140-400) Neutrophils (%) (Auto) 70 % (31-73) Lymphocytes (%) (Auto) 16 % (24-48) Monocytes (%) (Auto) 10 % (0-9) Eosinophils (%) (Auto) 2 % (0-3) Basophils (%) (Auto) 1 % (0-3) Neutrophils # (Auto) 3.3 x10^3/uL (1.8-7.7) Lymphocytes # (Auto) 0.8 x10^3/uL (1.0-4.8) Monocytes # (Auto) 0.5 x10^3/uL (0.0-1.1) Eosinophils # (Auto) 0.1 x10^3/uL (0.0-0.7) Basophils # (Auto) 0.0 x10^3/uL (0.0-0.2) Glucose (Fingerstick) 113 mg/dL (70-99) Review of Systems Constitutional: yes: alert, oriented Ears/Nose/Throat: Yes: no symptom reported Eyes: Yes: no symptom reported Pulmonary: Yes no symptom reported Cardiovascular: Yes no symptom reported Gastrointestional: Yes: nausea Genitourinary: Yes: no symptom reported Musculoskeletal: Yes: no symptom reported Skin: Yes no symptom reported Psychiatric/Neurological: Yes: no symptom reported Endocrine: Yes: no symptom reported Physical Exam General Appearance: no apparent distress Skin: warm Respiratory: bilateral CTA Heart: S1S2 Abdomen: soft, bowel sounds present Genitourinary: bladder flat Extremities: pulses present Neurology: alert, confused Assessment Assessment IMP ANEMIA ESRD-TTS DIASTOLIC CHF HTN DM II PLAN ARANESP HD TODAY UF TOLERATED MAURO CASEY MD Apr 24, 2020 15:23
[2020-04-24 19:40] VITALS: BP 121/50
[2020-04-24 22:09] VITALS: BP 100/48
[2020-04-25 03:00] VITALS: BP 119/46
[2020-04-25 04:10] LABS: BASO % 1 % (0-3); EOS # 0.1 x10^3/uL (0.0-0.7); EOS % 3 % (0-3); HEMATOCRIT 23.3 % (36.0-47.0); HEMOGLOBIN 7.9 g/dL (12.0-15.5); LYMPH # 0.8 x10^3/uL (1.0-4.8); LYMPH % 17 % (24-48); MEAN CORPUSCULAR HEMOGLOBIN 32 pg (25-35); MEAN CORPUSCULAR HGB CONC 34 g/dL (31-37); MEAN CORPUSCULAR VOLUME 93 fL (79-100); MONO # 0.5 x10^3/uL (0.0-1.1); MONO % 12 % (0-9); NEUT % 68 % (31-73); PLATELET COUNT 176 x10^3/uL (140-400); RED CELL DISTRIBUTION WIDTH 17.7 % (11.5-14.5); WHITE BLOOD COUNT 4.5 x10^3/uL (4.0-11.0)
[2020-04-25 07:00] VITALS: BP 119/60
--- NOTE | 2020-04-25 07:37 | PDOC ---
[employer] PROGRESS NOTE Date of Service DOS: DATE: 04/25/20 TIME: 07:36 Chief Complaint Chief Complaint A/P: Acute on chronic anemia - improving with transfusion x3, unclear if there is significant GI loss Malnutrition End-stage renal disease on hemodialysis Nonocclusive DVT in left internal jugular vein - off eliquis while inpatient, will hold for 1 week until outpatient follow up Hypocalcemia Moderate protein calorie malnutrition Dementia Acute encephalopathy - noted by daughter to be more confused, could be metabolic due to anemia, but could be due to dementia HTN DM2 Plan Follow h and h Nephrology consult HD as per golf tournament consultant Renal diet Full code Discussed with RN and SW Surrogate decision maker is the daughter History of Present Illness History of Present Illness Ms Michelle is an 84yo F w/ PMHx dementia, Diabetes-Type II, HTN, ESRD on HD on MWF who was brought here from rehab at [facility] due to agitation and poor responsiveness at dialysis. Found with Hb 5.4, admitted for this. She had recent EGD on 04/06/2020 with resolving gastritis. She has been on eliquis for left IJ DVT. 04/21: Patient does not seem to comprehend the fact that due to the dialysis treatment she will need constant monitoring and patient also has had a history of nonadherence to treatment plans previously. Discussed with nursing staff 04/22: Patient pleasantly demented, she does not seem to know she is in the hospital, plan of care discussed in detail. i am not sure if she does comprehend her situation. Reassurance provided. 04/23: No acute events reported overnight, case discussed with nursing staff patient in no acute distress no complaints during my visit, continues to be pleasantly demented patient is scheduled for dialysis in the morning if her H&H remained stable she may be discharged after dialysis 04/24: Hb dropped to 7.5 today. She has no complaints today. Hb 7.9. Less short of breath Vitals/I&O Vitals/I&O: Vital Signs Date Time Temp Pulse Resp B/P (MAP) Pulse Ox O2 Delivery O2 Flow Rate FiO2 04/25/20 03:00 97.5 90 16 119/46 (70) 95 Room Air 97.5 I & O 04/24/20 04/24/20 04/25/20 15:00 23:00 07:00 Intake Total 100 ml 290 ml 520 ml Output Total 150 ml 75 ml Balance 100 ml 140 ml 445 ml Physical Exam Physical Exam: GEN: No apparent distress. Alert and oriented HEENT: Normal cephalic, atraumatic, external auditory canals are patent EYES: Extraocular muscles are intact, pupil are equally round and reactive to light and accommodation MUSCULOSKELETAL: Well developed , well nourished, good range of motion ENDOCRINE: No thyromegaly was palpated LYMPHATICS: No cervical chain or axillary nodes were noted HEMATOPOIETIC: No bruising NECK: Supple, no JVD, no thyromegaly was noted LUNGS: Clear to auscultation in all lung ruiz without rhonchi or wheezing HEART: RRR, S!, S2 present. Peripheral pulses intact, no obvious murmurs noted ABDOMEN: Soft, nontender. Positive bowel sounds, no organomegaly, normal bowel sounds EXTREMITIES: Without clubbing, cyanosis, or edema. Pedal pulses intact. Negative Homans sign NEUROLOGIC: Normal speech and tone. A&O x 3, moves all extremities, no obvious focal deficits, PSYCHIATRIC: Normal affect, normal mood. Stable SKIN: No ulcerations or rashes, good skin turgor, no jaundice VASCULAR: Good capillary refill, neurovascular bundle appears to be intact Lungs: Clear Labs Labs: Laboratory Tests Test 04/24/20 08:30 04/24/20 11:10 04/24/20 16:54 04/24/20 20:37 White Blood Count 4.8 x10^3/uL (4.0-11.0) Red Blood Count 2.41 x10^6/uL (3.50-5.40) Hemoglobin 7.5 g/dL (12.0-15.5) Hematocrit 22.6 % (36.0-47.0) Mean Corpuscular Volume 94 fL (79-100) Mean Corpuscular Hemoglobin 31 pg (25-35) Mean Corpuscular Hemoglobin Concent 33 g/dL (31-37) Red Cell Distribution Width 17.7 % (11.5-14.5) Platelet Count 179 x10^3/uL (140-400) Neutrophils (%) (Auto) 70 % (31-73) Lymphocytes (%) (Auto) 16 % (24-48) Monocytes (%) (Auto) 10 % (0-9) Eosinophils (%) (Auto) 2 % (0-3) Basophils (%) (Auto) 1 % (0-3) Neutrophils # (Auto) 3.3 x10^3/uL (1.8-7.7) Lymphocytes # (Auto) 0.8 x10^3/uL (1.0-4.8) Monocytes # (Auto) 0.5 x10^3/uL (0.0-1.1) Eosinophils # (Auto) 0.1 x10^3/uL (0.0-0.7) Basophils # (Auto) 0.0 x10^3/uL (0.0-0.2) Glucose (Fingerstick) 113 mg/dL (70-99) 129 mg/dL (70-99) 149 mg/dL (70-99) Test 04/25/20 04:00 White Blood Count 4.5 x10^3/uL (4.0-11.0) Red Blood Count 2.50 x10^6/uL (3.50-5.40) Hemoglobin 7.9 g/dL (12.0-15.5) Hematocrit 23.3 % (36.0-47.0) Mean Corpuscular Volume 93 fL (79-100) Mean Corpuscular Hemoglobin 32 pg (25-35) Mean Corpuscular Hemoglobin Concent 34 g/dL (31-37) Red Cell Distribution Width 17.7 % (11.5-14.5) Platelet Count 176 x10^3/uL (140-400) Neutrophils (%) (Auto) 68 % (31-73) Lymphocytes (%) (Auto) 17 % (24-48) Monocytes (%) (Auto) 12 % (0-9) Eosinophils (%) (Auto) 3 % (0-3) Basophils (%) (Auto) 1 % (0-3) Neutrophils # (Auto) 3.0 x10^3/uL (1.8-7.7) Lymphocytes # (Auto) 0.8 x10^3/uL (1.0-4.8) Monocytes # (Auto) 0.5 x10^3/uL (0.0-1.1) Eosinophils # (Auto) 0.1 x10^3/uL (0.0-0.7) Basophils # (Auto) 0.0 x10^3/uL (0.0-0.2) Assessment and Plan Assessmemt and Plan Problems Medical Problems: (1) Profound anemia Status: Acute Comment Review of Relevant I have reviewed the following items rose (where applicable) has been applied. Justifications for Admission Other Justification profound anemia CHARLIE CHAVEZ MD Apr 25, 2020 07:37
[2020-04-25] MEDS: INSULIN LISPRO 300 UNITS/3 ML VIAL. SQ SCH ×2 (08:00→12:00)
[2020-04-25] MEDS: HEPARIN for SUB-Q USE 5,000 UNIT/ML VIAL. SQ SCH (08:40)
[2020-04-25 11:00] VITALS: BP 130/58
--- NOTE | 2020-04-25 12:00 | SNU/HH DC ---
DISCHARGE WITH HOME HEALTH DISCHARGE INFORMATION: Discharge Date: Apr 25, 2020 Final Diagnosis: Problems Medical Problems: (1) Profound anemia Status: Acute Condition on Discharge: Stable CODE STATUS: Code Status: Full HOME HEALTH: Face to Face: I certify this patient is under my care and that I, or a nurse practitioner or physician's emergency medicine physician assistant working with me, had a face to face encounter that meets the physician face to face encounter requirements with this patient on 04/25/2020. Medical Complications: Dementia RN For Eval/Treatment: Yes Physical Therapy For: Evalulation/Treatment Occupational Therapy For: Evaluation/Treatment Pt Meets Homebound Status: Unsteady balance w/ amb,, Poor cognition POST DISCHARGE ORDERS: Activity Instructions for Disc: Activity as tolerated Weight Bearing Status after Di: As tolerated DIET AFTER DISCHARGE: Renal CHECKS AFTER DISCHARGE: Checks after discharge: Check blood press - daily, Weigh Yourself Daily FOLLOW-UP: PCP to follow Home Health: Dr Luna Follow up with: Nephrology, Vascular surgery TREATMENT/EQUIPMENT ORDERS: Adaptive Equipment Issued: None CERTIFICATION STATEMENT: Certification Statement: Certification Statement: Based on the above finding, I certify that this patient is confined to the home and needs intermittent long-term care, physical therapy and/or speech therapy, or continues to need occupational therapy.~ This patient is under my care, and I have initiated the establishment of the plan of care.~ This patient will be followed by myself or a community physician who will periodically review the plan of care. Home Meds Active Scripts Omeprazole/Sodium Bicarbonate (OMEPRAZOLE-BICARB 20-1,100 CAP) 1 Each Capsule, 1 CAP PO DAILY for esophagitis for 60 Days, #60 CAP 0 Refills Prov:EDMUND KRUGER MD 04/06/20 Reported Medications Folic Acid/Vitamin B Comp W-C (BRUCE-MALU TABLET) 0.8 Mg Tablet, 1 TAB PO TIDWMEALS for FOR DIALYSIS PT for 30 Days, #90 TAB 0 Refills 03/23/20 Ergocalciferol (Vitamin D2) (Vitamin D2) 1,250 Mcg Capsule, 1250 MCG PO WEEKLY for 03/03/20 Donepezil Hcl (DONEPEZIL HCL) 5 Mg Tablet, 5 MG PO QHS for 03/03/20 Ziprasidone Hcl (ZIPRASIDONE HCL) 20 Mg Capsule, 20 MG PO HS for bipolar 5/25/20 Hydralazine Hcl (HYDRALAZINE HCL) 25 Mg Tablet, 2 TAB PO BID for hypertension, #90 TAB 5 Refills 08/04/19 Discontinued Reported Medications Apixaban (ELIQUIS) 2.5 Mg Tablet, 2.5 MG PO BID, TAB 04/10/20 CHARLIE CHAVEZ MD Apr 25, 2020 12:00
--- NOTE | 2020-04-25 12:12 | PDOC ---
Renal-Progress Notes Subjective Notes Notes WANTS TO GO HOME History of Present Illness Hx of present illness STABLE Vitals Vitals Vital Signs Date Time Temp Pulse Resp B/P (MAP) Pulse Ox O2 Delivery O2 Flow Rate FiO2 04/25/20 08:00 Room Air 04/25/20 07:00 98.3 64 16 119/60 (79) 98 98.3 Weight Weight [ ] I.O. Intake and Output Intake and Output 04/25/20 07:00 Intake Total 910 ml Output Total 225 ml Balance 685 ml Intake Oral 910 ml Output Urine Total 225 ml # Voids 1 # Bowel Movements 1 Labs Labs Laboratory Tests Test 04/24/20 16:54 04/24/20 20:37 04/25/20 04:00 04/25/20 07:51 Glucose (Fingerstick) 129 mg/dL (70-99) 149 mg/dL (70-99) 97 mg/dL (70-99) White Blood Count 4.5 x10^3/uL (4.0-11.0) Red Blood Count 2.50 x10^6/uL (3.50-5.40) Hemoglobin 7.9 g/dL (12.0-15.5) Hematocrit 23.3 % (36.0-47.0) Mean Corpuscular Volume 93 fL (79-100) Mean Corpuscular Hemoglobin 32 pg (25-35) Mean Corpuscular Hemoglobin Concent 34 g/dL (31-37) Red Cell Distribution Width 17.7 % (11.5-14.5) Platelet Count 176 x10^3/uL (140-400) Neutrophils (%) (Auto) 68 % (31-73) Lymphocytes (%) (Auto) 17 % (24-48) Monocytes (%) (Auto) 12 % (0-9) Eosinophils (%) (Auto) 3 % (0-3) Basophils (%) (Auto) 1 % (0-3) Neutrophils # (Auto) 3.0 x10^3/uL (1.8-7.7) Lymphocytes # (Auto) 0.8 x10^3/uL (1.0-4.8) Monocytes # (Auto) 0.5 x10^3/uL (0.0-1.1) Eosinophils # (Auto) 0.1 x10^3/uL (0.0-0.7) Basophils # (Auto) 0.0 x10^3/uL (0.0-0.2) Review of Systems Constitutional: yes: alert, oriented Ears/Nose/Throat: Yes: no symptom reported Eyes: Yes: no symptom reported Pulmonary: Yes no symptom reported Cardiovascular: Yes no symptom reported Gastrointestional: Yes: nausea Genitourinary: Yes: no symptom reported Musculoskeletal: Yes: no symptom reported Skin: Yes no symptom reported Psychiatric/Neurological: Yes: no symptom reported Endocrine: Yes: no symptom reported Physical Exam General Appearance: no apparent distress Skin: warm Respiratory: bilateral CTA Heart: S1S2 Abdomen: soft, bowel sounds present Genitourinary: bladder flat Extremities: pulses present Neurology: alert, confused Assessment Assessment IMP ANEMIA ESRD-TTS DIASTOLIC CHF HTN DM II PLAN ARANESP HD TOMORROW PROD D/C TODAY MAURO CASEY MD Apr 25, 2020 12:12
--- NOTE | 2020-04-25 12:13 | PDOC3 ---
Discharge Summary Visit Information Date of Admission: Apr 21, 2020 Date of Discharge: Apr 25, 2020 Admitting Diagnosis: Acute anemia Final Diagnosis Problems Medical Problems: (1) Profound anemia Status: Acute Brief Hospital Course Allergies Allergies Coded Allergies Type Severity Reaction Last Updated Verified Sulfa (Sulfonamide Antibiotics) Allergy Severe RODRIGUEZ DUSTIN SYNDROME 04/20/20 Yes Penicillins Allergy Intermediate 04/20/20 Yes propoxyphene Allergy Intermediate 04/20/20 Yes Vital Signs Vital Signs Date Time Temp Pulse Resp B/P (MAP) Pulse Ox O2 Delivery O2 Flow Rate FiO2 04/25/20 08:00 Room Air 04/25/20 07:00 98.3 64 16 119/60 (79) 98 98.3 Lab Results Laboratory Tests Test 04/23/20 16:48 04/23/20 20:59 04/24/20 05:30 04/24/20 07:21 Glucose (Fingerstick) 186 mg/dL (70-99) 122 mg/dL (70-99) 97 mg/dL (70-99) Sodium Level 141 mmol/L (136-145) Potassium Level 4.5 mmol/L (3.5-5.1) Chloride Level 105 mmol/L (98-107) Carbon Dioxide Level 27 mmol/L (21-32) Anion Gap 9 (6-14) Blood Urea Nitrogen 50 mg/dL (7-20) Creatinine 6.6 mg/dL (0.6-1.0) Estimated GFR (Cockcroft-Gault) 7.3 Glucose Level 79 mg/dL (70-99) Calcium Level 6.4 mg/dL (8.5-10.1) Test 04/24/20 08:30 04/24/20 11:10 04/24/20 16:54 04/24/20 20:37 White Blood Count 4.8 x10^3/uL (4.0-11.0) Red Blood Count 2.41 x10^6/uL (3.50-5.40) Hemoglobin 7.5 g/dL (12.0-15.5) Hematocrit 22.6 % (36.0-47.0) Mean Corpuscular Volume 94 fL (79-100) Mean Corpuscular Hemoglobin 31 pg (25-35) Mean Corpuscular Hemoglobin Concent 33 g/dL (31-37) Red Cell Distribution Width 17.7 % (11.5-14.5) Platelet Count 179 x10^3/uL (140-400) Neutrophils (%) (Auto) 70 % (31-73) Lymphocytes (%) (Auto) 16 % (24-48) Monocytes (%) (Auto) 10 % (0-9) Eosinophils (%) (Auto) 2 % (0-3) Basophils (%) (Auto) 1 % (0-3) Neutrophils # (Auto) 3.3 x10^3/uL (1.8-7.7) Lymphocytes # (Auto) 0.8 x10^3/uL (1.0-4.8) Monocytes # (Auto) 0.5 x10^3/uL (0.0-1.1) Eosinophils # (Auto) 0.1 x10^3/uL (0.0-0.7) Basophils # (Auto) 0.0 x10^3/uL (0.0-0.2) Glucose (Fingerstick) 113 mg/dL (70-99) 129 mg/dL (70-99) 149 mg/dL (70-99) Test 04/25/20 04:00 04/25/20 07:51 White Blood Count 4.5 x10^3/uL (4.0-11.0) Red Blood Count 2.50 x10^6/uL (3.50-5.40) Hemoglobin 7.9 g/dL (12.0-15.5) Hematocrit 23.3 % (36.0-47.0) Mean Corpuscular Volume 93 fL (79-100) Mean Corpuscular Hemoglobin 32 pg (25-35) Mean Corpuscular Hemoglobin Concent 34 g/dL (31-37) Red Cell Distribution Width 17.7 % (11.5-14.5) Platelet Count 176 x10^3/uL (140-400) Neutrophils (%) (Auto) 68 % (31-73) Lymphocytes (%) (Auto) 17 % (24-48) Monocytes (%) (Auto) 12 % (0-9) Eosinophils (%) (Auto) 3 % (0-3) Basophils (%) (Auto) 1 % (0-3) Neutrophils # (Auto) 3.0 x10^3/uL (1.8-7.7) Lymphocytes # (Auto) 0.8 x10^3/uL (1.0-4.8) Monocytes # (Auto) 0.5 x10^3/uL (0.0-1.1) Eosinophils # (Auto) 0.1 x10^3/uL (0.0-0.7) Basophils # (Auto) 0.0 x10^3/uL (0.0-0.2) Glucose (Fingerstick) 97 mg/dL (70-99) Laboratory Tests Test 04/24/20 16:54 04/24/20 20:37 04/25/20 04:00 04/25/20 07:51 Glucose (Fingerstick) 129 mg/dL (70-99) 149 mg/dL (70-99) 97 mg/dL (70-99) White Blood Count 4.5 x10^3/uL (4.0-11.0) Red Blood Count 2.50 x10^6/uL (3.50-5.40) Hemoglobin 7.9 g/dL (12.0-15.5) Hematocrit 23.3 % (36.0-47.0) Mean Corpuscular Volume 93 fL (79-100) Mean Corpuscular Hemoglobin 32 pg (25-35) Mean Corpuscular Hemoglobin Concent 34 g/dL (31-37) Red Cell Distribution Width 17.7 % (11.5-14.5) Platelet Count 176 x10^3/uL (140-400) Neutrophils (%) (Auto) 68 % (31-73) Lymphocytes (%) (Auto) 17 % (24-48) Monocytes (%) (Auto) 12 % (0-9) Eosinophils (%) (Auto) 3 % (0-3) Basophils (%) (Auto) 1 % (0-3) Neutrophils # (Auto) 3.0 x10^3/uL (1.8-7.7) Lymphocytes # (Auto) 0.8 x10^3/uL (1.0-4.8) Monocytes # (Auto) 0.5 x10^3/uL (0.0-1.1) Eosinophils # (Auto) 0.1 x10^3/uL (0.0-0.7) Basophils # (Auto) 0.0 x10^3/uL (0.0-0.2) Brief Hospital Course Ms Michelle is an 84yo F w/ PMHx dementia, Diabetes-Type II, HTN, ESRD on HD on MWF who was brought here from rehab [facility] due to agitation and poor responsiveness at dialysis. Found with Hb 5.4, admitted for this. She had recent EGD on 04/06/2020 with resolving gastritis. She has been on eliquis for left IJ DVT. S/p 3 u PRBC. Consults: Nephrology 04/21: Patient does not seem to comprehend the fact that due to the dialysis treatment she will need constant monitoring and patient also has had a history of nonadherence to treatment plans previously. Discussed with nursing staff 04/22: Patient pleasantly demented, she does not seem to know she is in the hospital, plan of care discussed in detail. i am not sure if she does comprehend her situation. Reassurance provided. 04/23: No acute events reported overnight, case discussed with nursing staff patient in no acute distress no complaints during my visit, continues to be pleasantly demented patient is scheduled for dialysis in the morning if her H&H remained stable she may be discharged after dialysis 04/24: Hb dropped to 7.5 today. She has no complaints today. Hb 7.9. Less short of breath today. Ambulating well. d/w son and daughter the plan is to return home. Eliquis on hold due to life-threatening bleeding. Problem list: Acute on chronic anemia - improving with transfusion x3, unclear if there is significant GI loss Malnutrition End-stage renal disease on hemodialysis Nonocclusive DVT in left internal jugular vein - off eliquis while inpatient, will hold for 1 week until outpatient follow up Hypocalcemia Moderate protein calorie malnutrition Dementia Acute encephalopathy - noted by daughter to be more confused, could be metabolic due to anemia, but could be due to dementia HTN DM2 Greater than 30 minutes spent on d/c Discharge Information Condition at Discharge: Improved Follow Up: Weeks Disposition/Orders: D/C to Home w/ HH Scheduled Donepezil Hcl (Donepezil Hcl) 5 Mg Tablet, 5 MG PO QHS for , (Reported) Entered as Reported by: YUVAL BAUER RN on 03/03/201938 Last Action: Reviewed on 04/20/202220 by NIC MORILLO Ergocalciferol (Vitamin D2) (Vitamin D2) 1,250 Mcg Capsule, 1,250 MCG PO WEEKLY for , (Reported) Entered as Reported by: YUVAL BAUER RN on 03/03/20 193 Last Action: Reviewed on 04/20/202220 by NIC MORILLO Folic Acid/Vitamin B Comp W-C (Sarahy-Angelia Tablet) 0.8 Mg Tablet, 1 TAB PO TIDWMEALS for FOR DIALYSIS PT for 30 Days, #90 Ref 0 (Reported) Entered as Reported by: Sara Acharya on 03/23/20 0118 Last Action: Edited on 04/20/202220 by NIC MORILLO Hydralazine Hcl (Hydralazine Hcl) 25 Mg Tablet, 2 TAB PO BID for hypertension, #90 Ref 5 (Reported) Entered as Reported by: SUKHDEV OLIVER on 08/04/19 0454 Last Action: Edited on 04/20/202220 by NIC MORILLO Omeprazole/Sodium Bicarbonate (Omeprazole-Bicarb 20-1,100 Cap) 1 Each Capsule, 1 CAP PO DAILY for esophagitis for 60 Days, #60 Ref 0 Prescribed by: EDMUND KRUGER MD on 04/06/20 1147 Ziprasidone Hcl (Ziprasidone Hcl) 20 Mg Capsule, 20 MG PO HS for bipolar, (Reported) Entered as Reported by: Jose Marinelli on 01/03/202112 Last Action: Reviewed on 04/20/202220 by NIC MORILLO Discontinued Medications Apixaban (Eliquis) 2.5 Mg Tablet, 2.5 MG PO BID, (Reported) Entered as Reported by: KATHLEEN DAVIS Ty on 04/10/20 1448 Justicifation of Admission Dx: Justifications for Admission: Justification of Admission Dx: Yes (PROFOUND ANEMIA) CHARLIE CHAVEZ MD Apr 25, 2020 12:13
[2020-04-25 15:00] VITALS: BP 144/90
--- NOTE | 2020-04-25 15:10 | NUR ---
PICC line removed without difficulty. No bleeding noted. 39cm removed.
--- NOTE | 2020-04-25 16:17 | NUR ---
Discharged to home with daughter. Discharge instructions reviewed with daughter and she verbalized understanding.
== END 2020-04-25 16:15 | disposition home health service (06) | DRG 291 ==
LOC: ER 15:48 → 2 SOUTH 17:04 → OBSVTOIN 04-21 08:00
PROVIDERS: ADMIT Internal Medicine; ATTEND Internal Medicine
PROC: 30233N1 Transfusion of Nonautologous Red Blood Cells into Peripheral Vein, Percutaneous Approach (ICD-10-PCS; principal; 2020-04-21)
PROC: 5A1D70Z Performance of Urinary Filtration, Intermittent, Less than 6 Hours Per Day (ICD-10-PCS; 2020-04-21)
PROC: 02HV33Z Insertion of Infusion Device into Superior Vena Cava, Percutaneous Approach (ICD-10-PCS; 2020-04-21)
PROC: 5A1D70Z Performance of Urinary Filtration, Intermittent, Less than 6 Hours Per Day (ICD-10-PCS; 2020-04-24)
DX: I13.2 Hypertensive heart and chronic kidney disease with heart failure and with stage 5 chronic kidney disease, or end stage renal disease (principal); N18.6 End stage renal disease; G93.41 Metabolic encephalopathy; E44.0 Moderate protein-calorie malnutrition; I50.30 Unspecified diastolic (congestive) heart failure; D63.1 Anemia in chronic kidney disease; E11.22 Type 2 diabetes mellitus with diabetic chronic kidney disease; E83.51 Hypocalcemia; F02.80 Dementia in other diseases classified elsewhere, unspecified severity, without behavioral disturbance, psychotic disturbance, mood disturbance, and anxiety; G30.9 Alzheimer's disease, unspecified; Z20.828 Contact with and (suspected) exposure to other viral communicable diseases; Z87.891 Personal history of nicotine dependence; Z90.11 Acquired absence of right breast and nipple; Z90.12 Acquired absence of left breast and nipple; Z90.710 Acquired absence of both cervix and uterus; Z99.2 Dependence on renal dialysis; Z88.8 Allergy status to other drugs, medicaments and biological substances; Z88.0 Allergy status to penicillin; Z88.2 Allergy status to sulfonamides; Z79.899 Other long term (current) drug therapy; Z86.718 Personal history of other venous thrombosis and embolism; Z79.01 Long term (current) use of anticoagulants
CPT/HCPCS: 36415; 36569; 71045; 80048; 82962; 83735; 84075; 84100; 85025; 86850; 86900; 86901; 86920; 99285; G0378; G0379; J0882; J1644; J1815; J3490; P9016; 97110-GO; 97116-GP; 97530-GP; 97535-GO; U0003-CS

== ENCOUNTER 2020-11-06 21:43 | Emergency (ER) | payer MEDICARE ==
[~2020-11-06] VITALS: Ht 162.6 cm; Wt 65.9 kg
[~2020-11-06 21:43] MED LIST changes: +FERR-36 PO; +OMEP40CA45 PO; +ZIPR40CA3 PO
--- NOTE | 2020-11-06 22:03 | PHYS DOC ---
Past Medical History Past Medical History: Anemia, Diabetes-Type II, Hypertension, Renal Disease, Renal Failure, Other Additional Past Medical Histor: dialysis,ESRD,CKD Past Surgical History: Hysterectomy, Other Additional Past Surgical Histo: RIGHT MASTECTOMY, LEFT DIALYSIS FISTULA Smoking Status: Former Smoker Alcohol Use: None Drug Use: None General Adult EDM: Chief Complaint: MECHANICAL FALL HPI: HPI: Patient is a 85 year old female who presents following a mechanical fall. History primarily obtained from daughter due to patient's baseline dementia. Per daughter, patient got up to use the bathroom unassisted this afternoon and had an unwitnessed fall. Her granddaughter was home and heard the event, at which time she went and found the patient to have fallen forward onto her hands and knees. They do not believe she hit her head. There was no loss of consciousness. Patient's only complaint at this time is right knee pain. Per daughter, patient had been complaining of right knee pain prior to the fall. She is unsteady on her feet at baseline. She denies lightheadedness, chest pain, palpitations, abdominal pain, nausea, or vomiting. Review of Systems: Review of Systems: Fourteen body systems of review of systems have been reviewed. See HPI for pertinent positives and negative responses, other luna all other systems are negative, non-pertinent or non-contributory Heart Score: C/O Chest Pain: No Risk Factors: Risk Factors: DM, Current or recent (<one month) smoker, HTN, HLP, family history of CAD, obesity. Risk Scores: Score 0 - 3: 2.5% MACE over next 6 weeks - Discharge Home Score 4 - 6: 20.3% MACE over next 6 weeks - Admit for Clinical Observation Score 7 - 10: 72.7% MACE over next 6 weeks - Early Invasive Strategies Allergies: Allergies: Allergies Coded Allergies Type Severity Reaction Last Updated Verified Sulfa (Sulfonamide Antibiotics) Allergy Severe RODRIGUEZ DUSTIN SYNDROME 04/20/20 Yes Penicillins Allergy Intermediate 04/20/20 Yes propoxyphene Allergy Intermediate 04/20/20 Yes Physical Exam: PE: Constitutional: Well developed, well nourished, no acute distress, non-toxic appearance. HENT: Normocephalic, atraumatic, bilateral external ears normal, oropharynx moist, no oral exudates, nose normal. Eyes: PERRLA, EOMI, conjunctiva normal, no discharge. Neck: Normal range of motion, no tenderness, supple, no stridor. Cardiovascular: Heart rate regular, sinus rhythm, no murmurs rubs or gallops Lungs & Thorax: Bilateral breath sounds clear to auscultation Abdomen: Bowel sounds normal, soft, no tenderness, no masses, no pulsatile masses. Nonsurgical abdomen, no peritoneal signs Skin: Warm, dry, no erythema, no rash. Back: No tenderness, no CVA tenderness. Extremities: No cyanosis, no clubbing, ROM intact, no edema. Left upper extremity AV fistula in place. Right knee is diffusely tender with palpation without any focal areas of pain. No visible nor palpable abnormalities present. Patella unremarkable. Negative anterior Fox exams, negative valgus and varus strain exams. Negative fibular head under this Neurologic: Alert and oriented X 3, cranial nerves II through XII intact, normal motor & sensory function, no focal deficits noted. Psychologic: Affect normal, judgement normal, mood normal. Current Patient Data: Vital Signs: Vital Signs Date Time Temp Pulse Resp B/P (MAP) Pulse Ox O2 Delivery O2 Flow Rate FiO2 11/07/20 00:30 55 16 143/73 (96) 94 Room Air 11/06/20 23:30 59 21 143/76 (98) 94 Room Air 11/06/20 22:30 68 23 154/65 (94) 94 Room Air 11/06/20 21:43 98.4 63 24 157/59 (91) 94 98.4 EKG: EKG: [] Radiology/Procedures: Radiology/Procedures: [] Course & Med Decision Making: Course & Med Decision Making Hemodynamically stable patient with fall earlier in the day. Not on any blood thinners. Physical exam grossly nonconcerning. Subsequent imaging of the head and right knee grossly unremarkable Discussed role of ER departure with close outpatient follow-up and supportive care in the interim, patient and daughter who is present for entirety of ER visit amenable to plan as stated Strict return precautions were discussed with good understanding by patient and daughter, all questions and concerns addressed prior to ER departure Brittany Disclaimer: Brittany Disclaimer: This electronic medical record was generated, in whole or in part, using a voice recognition dictation system. Departure Departure Impression: Primary Impression: Fall Additional Impression: Right knee pain Disposition: 01 DC HOME SELF CARE/HOMELESS Condition: STABLE Referrals: DELTA RIZVI MD (PCP) Patient Instructions: Fall Prevention and Home Safety Additional Instructions: You were seen for knee pain. Your knee pain is most likely due to a bruise. You should follow up with your primary care doctor for more evaluation and treatment. You can use ice, rest, and Tylenol for symptom control. Your xray did not show any obvious fracture or other abnormality. If you continue having symptoms you may need to follow up with your primary doctor to consider having an MRI or other testing if symptoms persists. Please return to the ED if you have new or worsening symptoms prior to outpatient follow-up DIANA BELTRAN DO Nov 06, 2020 22:03
--- NOTE | 2020-11-06 22:53 | RAD ---
4 view right knee dated 11/06/2020. No comparison available. CLINICAL INDICATION: Pain after fall. FINDINGS: 4 view right knee show normal bony alignment. No displaced fracture. There is mild to moderate tricom partmental hypertrophic change with asymmetric lateral joint space narrowing. Small marginal osteophy janelle. There is a moderate size joint effusion. No loose body. Diffuse vascular calcinosis. IMPRESSION: 1. No acute bony abnormality. 2. Moderate size joint effusion. There is clinical concern for occult fracture or internal derangemen t, MRI would better evaluate. 3. 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 Electronically signed by: Irvin Garcia MD (11/06/2020 10:50 PM) TOMAS
--- NOTE | 2020-11-06 23:05 | RAD ---
CT HEAD AND C-SPINE WO dated 11/06/2020 10:36 PM. Comparison: None. Clinical Indication: Reason: FALL, NO LOC / Spl. Instructions: / History: , HEAD AND NECK PAIN Technical factors: Contiguous 5 mm axial images of the head were obtained from the skullbase to the v ertex. No contrast was administered. In addition, 3 mm axial images of the cervical spine were acquir ed with thin cut coronal and sagittal reconstructions. One or more of the following individualized dose reduction techniques were utilized for this examinat ion: 1. Automated exposure control 2. Adjustment of the mA and/or kV according to patient size 3. Use of iterative reconstruction technique Findings head: Ventricles and sulci are mildly prominent for age. No midline shift or mass effect. Mild patchy low d ensity in the deep/subcortical periventricular white matter. No hemorrhage or extra-axial collection. Posterior fossa and brainstem unremarkable. Visualized paranasal sinuses and mastoid air cells are clear. No apparent calvarial abnormality. IMPRESSION HEAD: 1. No evidence of acute intracranial hemorrhage or mass. 2. Mild sinus disease. Findings cervical spine: Images were acquired from the skull base to mid T3. Sagittal alignment is anatomic. Vertebral body he ights are maintained. No prevertebral soft tissue swelling. Posterior elements are intact. No evidenc e of fracture. Mild endplate hypertrophic changes throughout. There is multilevel uncovertebral spurring and facet a rthropathy. No apparent focal disc herniation. The bony canal and foramen are adequate. Visualized soft tissue structures are unremarkable. There are dense atherosclerotic calcifications of the bilateral carotids. Limited images of lung apices show mild emphysema. IMPRESSION CERVICAL SPINE: 1. No evidence of fracture or malalignment. 2. Mild multilevel spondylosis. Electronically signed by: Irvin Garcia MD (11/06/2020 11:03 PM) [facility]
[2020-11-07 00:30] VITALS: BP 143/73
== END 2020-11-07 00:42 | disposition home or self-care (01) ==
LOC: ER 21:43
DX: G89.11 Acute pain due to trauma (principal); M25.561 Pain in right knee; D64.9 Anemia, unspecified; E11.9 Type 2 diabetes mellitus without complications; I10 Essential (primary) hypertension; N19 Unspecified kidney failure; Z87.891 Personal history of nicotine dependence; Z98.890 Other specified postprocedural states; Z90.89 Acquired absence of other organs; Z88.2 Allergy status to sulfonamides; Z88.0 Allergy status to penicillin; Z88.8 Allergy status to other drugs, medicaments and biological substances; W18.39XA Other fall on same level, initial encounter; Y93.89 Activity, other specified; Y92.89 Other specified places as the place of occurrence of the external cause; Y99.8 Other external cause status
CPT/HCPCS: 70450; 72125; 73564; 99285

== ENCOUNTER 2021-05-09 12:28 | Inpatient (IN) | payer MEDICARE ==
[~2021-05-09] VITALS: Ht 162.6 cm; Wt 70.9 kg
[~2021-05-09 12:28] MED LIST changes: -ERGO500027 PO; +ERGO500089 PO; -LOSA25TA12 PO; +LOSA25TA4 PO; -OMEP40CA45 PO; +OMEP40CA7 PO
[2021-05-09 13:43] LABS: CALCIUM 8.1 mg/dL (8.5-10.1); CREATININE 6.7 mg/dL (0.6-1.0); GFR 7.1; POTASSIUM 4.5 mmol/L (3.5-5.1)
[2021-05-09 13:49] LABS: ALBUMIN 2.9 g/dL (3.4-5.0); DIRECT BILIRUBIN 0.2 mg/dL (0.0-0.2); MAGNESIUM 2.3 mg/dL (1.8-2.4); TOTAL BILIRUBIN 0.5 mg/dL (0.2-1.0); TOTAL PROTEIN 6.6 g/dL (6.4-8.2)
[2021-05-09 14:17] LABS: BASO % 1 % (0-3); EOS # 0.1 x10^3/uL (0.0-0.7); EOS % 1 % (0-3); LYMPH # 0.4 x10^3/uL (1.0-4.8); LYMPH % 7 % (24-48); MEAN CORPUSCULAR HEMOGLOBIN 28 pg (25-35); MEAN CORPUSCULAR HGB CONC 32 g/dL (31-37); MEAN CORPUSCULAR VOLUME 87 fL (79-100); MONO # 0.5 x10^3/uL (0.0-1.1); MONO % 9 % (0-9); NEUT # 4.8 x10^3/uL (1.8-7.7); NEUT % 82 % (31-73); PLATELET COUNT 245 x10^3/uL (140-400); RED BLOOD COUNT 2.39 x10^6/uL (3.50-5.40); RED CELL DISTRIBUTION WIDTH 18.2 % (11.5-14.5); WHITE BLOOD COUNT 5.9 x10^3/uL (4.0-11.0)
[2021-05-09 14:28] LABS: HEMATOCRIT 20.8 % (36.0-47.0); HEMOGLOBIN 6.6 g/dL (12.0-15.5)
--- NOTE | 2021-05-09 14:51 | PHYS DOC ---
Past Medical History Past Medical History: Anemia, Diabetes-Type II, Hypertension, Renal Disease, Renal Failure, Other Additional Past Medical Histor: dialysis,ESRD,CKD Past Surgical History: Other Additional Past Surgical Histo: unknown Smoking Status: Former Smoker Alcohol Use: None Drug Use: None General Adult EDM: Chief Complaint: SHORTNESS OF BREATH HPI: HPI: 85-year-old female past medical history of ESRD (MWF-last HD Friday), hypertension, GERD and dementia, presents to the ED with her daughter, concern for " and breathing hard when I get up." Daughter witnessed patient with increased respirations while ambulating with her cane to the restroom. Has no underlying COPD, asthma and tobacco use. Received her Covid vaccine in October 2020. No known history of Covid. Patient lives with her granddaughter and has home health aide who assist with patient's care. Did not receive dialysis today. EMR was reviewed and patient was admitted last in May 2020 for anemia of chronic disease with a hemoglobin of 5.5. Review of Systems: Review of Systems: Review of systems limited due to patient's dementia, pt state's "why am I here?" Heart Score: C/O Chest Pain: No Risk Factors: Risk Factors: DM, Current or recent (<one month) smoker, HTN, HLP, family history of CAD, obesity. Risk Scores: Score 0 - 3: 2.5% MACE over next 6 weeks - Discharge Home Score 4 - 6: 20.3% MACE over next 6 weeks - Admit for Clinical Observation Score 7 - 10: 72.7% MACE over next 6 weeks - Early Invasive Strategies Allergies: Allergies: Allergies Coded Allergies Type Severity Reaction Last Updated Verified Sulfa (Sulfonamide Antibiotics) Allergy Severe RODRIGUEZ DUSTIN SYNDROME Yes Penicillins Allergy Intermediate 05/09/21 Yes propoxyphene Allergy Intermediate 05/09/21 Yes Physical Exam: PE: Constitutional: Well developed, well nourished, no acute distress, non-toxic appearance. HENT: Normocephalic, atraumatic, Eyes: EOMI, conjunctiva normal, no discharge. Neck: Normal range of motion, supple, Cardiovascular: S1/2 present, regular rhythm Lungs & Thorax: Speaking in full sentences, bilateral equal chest rise, no tachypnea or increased work of breathing Abdomen: soft, no tenderness, Skin: Warm, dry, Extremities: No tenderness, no cyanosis, Neurologic: Alert, no focal deficits noted. [] Psychologic: Calm mood, smiling, normal affect Current Patient Data: Labs: Laboratory Tests Test 05/09/21 12:50 05/09/21 13:25 05/09/21 14:10 Sodium Level 142 mmol/L (136-145) Potassium Level 4.5 mmol/L (3.5-5.1) Chloride Level 104 mmol/L (98-107) Carbon Dioxide Level 30 mmol/L (21-32) Anion Gap 8 (6-14) Blood Urea Nitrogen 42 mg/dL (7-20) H Creatinine 6.7 mg/dL (0.6-1.0) H Estimated GFR (Cockcroft-Gault) 7.1 Glucose Level 193 mg/dL (70-99) H Lactic Acid Level 2.3 mmol/L (0.4-2.0) H Calcium Level 8.1 mg/dL (8.5-10.1) L Magnesium Level 2.3 mg/dL (1.8-2.4) Total Bilirubin 0.5 mg/dL (0.2-1.0) Direct Bilirubin 0.2 mg/dL (0.0-0.2) Aspartate Amino Transferase (AST) 19 U/L (15-37) Alanine Aminotransferase (ALT) 30 U/L (14-59) Alkaline Phosphatase 136 U/L (46-116) H Troponin I Quantitative 0.065 ng/mL (0.000-0.055) BO-Ols-T-Type Natriuretic Peptide > 62087 pg/mL (0-449) H Total Protein 6.6 g/dL (6.4-8.2) Albumin 2.9 g/dL (3.4-5.0) L Lipase 156 U/L (73-393) SARS-CoV-2 Antigen (Rapid) Negative (NEGATIVE) White Blood Count 5.9 x10^3/uL (4.0-11.0) Red Blood Count 2.39 x10^6/uL (3.50-5.40) L Hemoglobin 6.6 g/dL (12.0-15.5) *L Hematocrit 20.8 % (36.0-47.0) *L Mean Corpuscular Volume 87 fL (79-100) Mean Corpuscular Hemoglobin 28 pg (25-35) Mean Corpuscular Hemoglobin Concent 32 g/dL (31-37) Red Cell Distribution Width 18.2 % (11.5-14.5) H Platelet Count 245 x10^3/uL (140-400) Neutrophils (%) (Auto) 82 % (31-73) H Lymphocytes (%) (Auto) 7 % (24-48) L Monocytes (%) (Auto) 9 % (0-9) Eosinophils (%) (Auto) 1 % (0-3) Basophils (%) (Auto) 1 % (0-3) Neutrophils # (Auto) 4.8 x10^3/uL (1.8-7.7) Lymphocytes # (Auto) 0.4 x10^3/uL (1.0-4.8) L Monocytes # (Auto) 0.5 x10^3/uL (0.0-1.1) Eosinophils # (Auto) 0.1 x10^3/uL (0.0-0.7) Basophils # (Auto) 0.0 x10^3/uL (0.0-0.2) Laboratory Tests 05/09/21 14:10 Laboratory Tests 05/09/21 12:50 Vital Signs: Vital Signs Date Time Temp Pulse Resp B/P (MAP) Pulse Ox O2 Delivery O2 Flow Rate FiO2 05/09/21 14:24 82 16 146/80 (102) 99 Nasal Cannula 3.0 05/09/21 12:52 98.5 98.5 EKG: EKG: atrial fibrillation 84 bpm, left axis deviation, QTC 462, no obvious ST elevations or ST depressions, Radiology/Procedures: Radiology/Procedures: []IMAGING REPORT Signed PATIENT: DENISE PAN ACCOUNT: [id number] : 1935 LOCATION: ER AGE: 85 SEX: F EXAM STATUS: REG ER ORD. PHYSICIAN: MILTON BUTLER DO REASON: soa PROCEDURE: PORTABLE CHEST 1V EXAMINATION: Chest radiograph. VIEWS: Single view COMPARISON: 05/12/2020 INDICATION:85 years, Female, shortness of breath. FINDINGS: Cardiomegaly. Diffuse bilateral reticular opacities. Left retrocardiac patchy airspace opacity. No pneumothorax. No acute osseous process. IMPRESSION: 1. Cardiomegaly with diffuse bilateral reticular opacities, suggesting of interstitial pulmonary edema. 2. Left retrocardiac patchy airspace opacity, may reflect small pleural effusion with associated atelectasis. Infiltrate cannot be excluded. Electronically signed by: Rowdy Tyson MD (05/09/2021 2:52 PM) [id number] DICTATED and SIGNED BY: ROWDY TYSON MD DATE: 05/09/21 [id number] 0 Course & Med Decision Making: Course & Med Decision Making Pertinent Labs and Imaging studies reviewed. (See chart for details) Concern for symptomatic, normocytic, anemia of chronic disease with exertional dyspnea, missed hemodialysis today. EKG concerning for new onset atrial fibrillation. Will admit to medicine for further medical management with cardiology consultation. Patient stable at time admission her and her daughter agree with this plan. Patient has no DPOA and is a full code. I have spoken with the patient and/or caregivers. I have explained the patient's condition, diagnosis and treatment plan based on the information available to me at this time. I have answered the patient's and/or caregivers questions and answered any concerns. The patient and/or caregivers have as good an understanding of the patient's diagnosis, condition and treatment plan as can be expected at this point. The patient has been stabilized within the capa bility of the emergency department. The patient will be transported for further care and management or will be moved to an observation or inpatient service. I have communicated with the staff or medical practitioner taking over this patient's care. Brittany Disclaimer: Brittany Disclaimer: This electronic medical record was generated, in whole or in part, using a voice recognition dictation system. Departure Departure Impression: Primary Impression: Exertional dyspnea Additional Impressions: Anemia of chronic disease Normocytic anemia Symptomatic anemia New onset a-fib Disposition: ADMITTED INPATIENT Admitting Physician: JUAN (Dr. De Jesus) Condition: STABLE Referrals: DELTA RIZVI MD (PCP) MILTON BUTLER DO May 09, 2021 14:51
--- NOTE | 2021-05-09 14:54 | RAD ---
EXAMINATION: Chest radiograph. VIEWS: Single view COMPARISON: 05/12/2020 INDICATION:85 years, Female, shortness of breath. FINDINGS: Cardiomegaly. Diffuse bilateral reticular opacities. Left retrocardiac patchy airspace opacity. No pn eumothorax. No acute osseous process. IMPRESSION: 1. Cardiomegaly with diffuse bilateral reticular opacities, suggesting of interstitial pulmonary mariam a. 2. Left retrocardiac patchy airspace opacity, may reflect small pleural effusion with associated atel ectasis. Infiltrate cannot be excluded. Electronically signed by: Armand Tyson MD (05/09/2021 2:52 PM) [id number]
--- NOTE | 2021-05-09 15:14 | PDOC1 ---
History and Physical Date of Admission Date of Admission DATE: 05/09/21 TIME: 15:14 Identification/Chief Complaint Chief Complaint Shortness of breath Source Source: Caregiver, Chart review History of Present Illness History of Present Illness Ms Michelle is an 84yo F w/ PMHx dementia, Diabetes-Type II, HTN, ESRD on HD on MWF who was brought here from home via EMS at the request of her daughter for worsening dyspnea upon exertion and confusion. Patient's SPO2 86-88% on room air upon arrival, 3L oxygen applied via nasal cannula. Patient currently denies any symptoms, denies pain. Respirations even and unlabored. Patient was due to have hemodialysis today but appointment rescheduled to tomorrow per EMS. Daughter notes shortness of breath and her mother stopping while ambulating with her cane to the restroom. S/p Covid vaccine in October 2020. Lives with her granddaughter and has home health aide who assist with patient's care. She has previously been admitted for blood loss anemia and she had EGD on 04/06/2020 with resolving gastritis. She has been on eliquis for left IJ DVT previously which was stopped over a year ago. Patient does not seem to comprehend the fact that due to the dialysis treatment she will need constant monitoring and patient also has had a history of nonadherence to treatment plans previously. Patient pleasantly demented, she does not seem to know she is in the hospital. WBC 5.9, Hb 6.6, platelets 245, NA 142, K4.5, BUN 42, creatinine 6.7, glucose 193, calcium 8.1, magnesium 2.3, LFTs within normal laboratory limits albumin 2.9, rapid COVID-19 negative Chest radiograph: Cardiomegaly. Diffuse bilateral reticular opacities. EKG appears to be irregular atrial arrhythmia possibly flutter or afib with rate approximately 84bpm and left axis deviation. No ST segment elevations or TWI. Past Medical History Cardiovascular: HTN Heme/Onc: Anemia NOS Renal/: Chronic renal insuff Past Surgical History Past Surgical History: Other Family History Family History: Hypertension Social History Smoke: No ALCOHOL: none Drugs: None Current Problem List Problem List Problems Medical Problems: (1) Anemia of chronic disease Status: Acute (2) Exertional dyspnea Status: Acute (3) New onset a-fib Status: Acute (4) Normocytic anemia Status: Acute (5) Symptomatic anemia Status: Acute Current Medications Current Medications Active Scripts Active Reported Iron (Ferrous Sulfate) 325 Mg Tablet 1 Tab PO DAILY 30 Days Omeprazole 40 Mg Capsule.dr 40 Mg PO DAILY Ziprasidone Hcl 40 Mg Capsule 40 Mg PO HS Asrahy-Angelia Tablet (Folic Acid/Vitamin B Comp W-C) 0.8 Mg Tablet 1 Tab PO TIDWMEAL S 30 Days Vitamin D2 (Ergocalciferol (Vitamin D2)) 1,250 Mcg Capsule 1,250 Mcg PO WEEKLY Donepezil Hcl 5 Mg Tablet 5 Mg PO QHS Hydralazine Hcl 25 Mg Tablet 2 Tab PO BID Allergies Allergies: Coded Allergies: Sulfa (Sulfonamide Antibiotics) (Verified Allergy, Severe, RODRIGUEZ DUSTIN SYNDROME, 05/09/21) Penicillins (Verified Allergy, Intermediate, 05/09/21) propoxyphene (Verified Allergy, Intermediate, 05/09/21) ROS Review of System Unable to complete due to dementia, patient oriented to person only, does not complain Physical Exam General: Alert, Cooperative, mild distress HEENT: Atraumatic, PERRLA, EOMI, Mucous membr. moist/pink Lungs: Other (bibasilar crackles) Heart: irregularly irregular Abdomen: Normal bowel sounds, Soft, No tenderness, No hepatosplenomegaly, No masses Rectal Exam: not examined Extremities: No clubbing, No cyanosis, No edema, Normal pulses, No tenderness/swelling Skin: No rashes, No breakdown, No significant lesion Neuro: Strength at 5/5 X4 ext, Normal tone, Sensation intact, Cranial nerves 3- 12 NL, Reflexes 2+ Psych/Mental Status: Other (Pleasantly confused) Vitals Vitals Vital Signs Date Time Temp Pulse Resp B/P (MAP) Pulse Ox O2 Delivery O2 Flow Rate FiO2 05/09/21 14:24 82 16 146/80 (102) 99 Nasal Cannula 3.0 05/09/21 12:52 98.5 98.5 Labs Labs Laboratory Tests Test 05/09/21 12:50 05/09/21 13:25 05/09/21 14:10 Sodium Level 142 mmol/L (136-145) Potassium Level 4.5 mmol/L (3.5-5.1) Chloride Level 104 mmol/L (98-107) Carbon Dioxide Level 30 mmol/L (21-32) Anion Gap 8 (6-14) Blood Urea Nitrogen 42 mg/dL (7-20) Creatinine 6.7 mg/dL (0.6-1.0) Estimated GFR (Cockcroft-Gault) 7.1 Glucose Level 193 mg/dL (70-99) Lactic Acid Level 2.3 mmol/L (0.4-2.0) Calcium Level 8.1 mg/dL (8.5-10.1) Magnesium Level 2.3 mg/dL (1.8-2.4) Total Bilirubin 0.5 mg/dL (0.2-1.0) Direct Bilirubin 0.2 mg/dL (0.0-0.2) Aspartate Amino Transf (AST/SGOT) 19 U/L (15-37) Alanine Aminotransferase (ALT/SGPT) 30 U/L (14-59) Alkaline Phosphatase 136 U/L (46-116) Troponin I Quantitative 0.065 ng/mL (0.000-0.055) IJ-Qcl-R-Type Natriuretic Peptide > 77012 pg/mL (0-449) Total Protein 6.6 g/dL (6.4-8.2) Albumin 2.9 g/dL (3.4-5.0) Lipase 156 U/L (73-393) SARS-CoV-2 Antigen (Rapid) Negative (NEGATIVE) White Blood Count 5.9 x10^3/uL (4.0-11.0) Red Blood Count 2.39 x10^6/uL (3.50-5.40) Hemoglobin 6.6 g/dL (12.0-15.5) Hematocrit 20.8 % (36.0-47.0) Mean Corpuscular Volume 87 fL (79-100) Mean Corpuscular Hemoglobin 28 pg (25-35) Mean Corpuscular Hemoglobin Concent 32 g/dL (31-37) Red Cell Distribution Width 18.2 % (11.5-14.5) Platelet Count 245 x10^3/uL (140-400) Neutrophils (%) (Auto) 82 % (31-73) Lymphocytes (%) (Auto) 7 % (24-48) Monocytes (%) (Auto) 9 % (0-9) Eosinophils (%) (Auto) 1 % (0-3) Basophils (%) (Auto) 1 % (0-3) Neutrophils # (Auto) 4.8 x10^3/uL (1.8-7.7) Lymphocytes # (Auto) 0.4 x10^3/uL (1.0-4.8) Monocytes # (Auto) 0.5 x10^3/uL (0.0-1.1) Eosinophils # (Auto) 0.1 x10^3/uL (0.0-0.7) Basophils # (Auto) 0.0 x10^3/uL (0.0-0.2) Laboratory Tests Test 05/09/21 12:50 05/09/21 13:25 05/09/21 14:10 Sodium Level 142 mmol/L (136-145) Potassium Level 4.5 mmol/L (3.5-5.1) Chloride Level 104 mmol/L (98-107) Carbon Dioxide Level 30 mmol/L (21-32) Anion Gap 8 (6-14) Blood Urea Nitrogen 42 mg/dL (7-20) Creatinine 6.7 mg/dL (0.6-1.0) Estimated GFR (Cockcroft-Gault) 7.1 Glucose Level 193 mg/dL (70-99) Lactic Acid Level 2.3 mmol/L (0.4-2.0) Calcium Level 8.1 mg/dL (8.5-10.1) Magnesium Level 2.3 mg/dL (1.8-2.4) Total Bilirubin 0.5 mg/dL (0.2-1.0) Direct Bilirubin 0.2 mg/dL (0.0-0.2) Aspartate Amino Transf (AST/SGOT) 19 U/L (15-37) Alanine Aminotransferase (ALT/SGPT) 30 U/L (14-59) Alkaline Phosphatase 136 U/L (46-116) Troponin I Quantitative 0.065 ng/mL (0.000-0.055) KF-Anu-X-Type Natriuretic Peptide > 57018 pg/mL (0-449) Total Protein 6.6 g/dL (6.4-8.2) Albumin 2.9 g/dL (3.4-5.0) Lipase 156 U/L (73-393) SARS-CoV-2 Antigen (Rapid) Negative (NEGATIVE) White Blood Count 5.9 x10^3/uL (4.0-11.0) Red Blood Count 2.39 x10^6/uL (3.50-5.40) Hemoglobin 6.6 g/dL (12.0-15.5) Hematocrit 20.8 % (36.0-47.0) Mean Corpuscular Volume 87 fL (79-100) Mean Corpuscular Hemoglobin 28 pg (25-35) Mean Corpuscular Hemoglobin Concent 32 g/dL (31-37) Red Cell Distribution Width 18.2 % (11.5-14.5) Platelet Count 245 x10^3/uL (140-400) Neutrophils (%) (Auto) 82 % (31-73) Lymphocytes (%) (Auto) 7 % (24-48) Monocytes (%) (Auto) 9 % (0-9) Eosinophils (%) (Auto) 1 % (0-3) Basophils (%) (Auto) 1 % (0-3) Neutrophils # (Auto) 4.8 x10^3/uL (1.8-7.7) Lymphocytes # (Auto) 0.4 x10^3/uL (1.0-4.8) Monocytes # (Auto) 0.5 x10^3/uL (0.0-1.1) Eosinophils # (Auto) 0.1 x10^3/uL (0.0-0.7) Basophils # (Auto) 0.0 x10^3/uL (0.0-0.2) Images Images Chest radiograph: Cardiomegaly. Diffuse bilateral reticular opacities. Left retrocardiac patchy airspace opacity. No pneumothorax. No acute osseous process. IMPRESSION: 1. Cardiomegaly with diffuse bilateral reticular opacities, suggesting of interstitial pulmonary edema. 2. Left retrocardiac patchy airspace opacity, may reflect small pleural effusion with associated atelectasis. Infiltrate cannot be excluded. VTE Prophylaxis Ordered VTE Prophylaxis Devices: Yes VTE Pharmacological Prophylaxi: Contraindicated Assessment/Plan Assessment/Plan A/P: Acute hypoxic respiratory failure - likely diastolic CHF and pulmonary edema due to worsening anemia. Possibly patient has been losing weight and may need additional ultrafiltration and dry weight adjustment. No cough or recent hospital stays or sick contacts no clear pneumonia Acute on chronic anemia - Will transfuse for symptomatic anemia. Check fecal occult End-stage renal disease on hemodialysis - MWF normally. Will consult nephrology for dialysis scheduling while inpatient Moderate protein calorie malnutrition - nepro with meals Dementia - on aricept, would hold this given her history of GI bleeding and new arrhythmia Acute atrial arrhythmia - does appear to be atrial flutter vs afib. Would not anticoagulate given 2 hospital admissions for GI bleeding in 2019 while anticoagulating a DVT Acute encephalopathy - noted by daughter to be more confused, could be metabolic due to anemia, but could be due to dementia HTN - cont home meds, prn hydralazine DM2 - sliding scale insulin FEN - Renal ada diet PPX - SCDs, PPI FULL CODE. discussed with daughter bedside, she will discuss possible DNR with her brother Dispo - inpatient for above Justifications for Admission Other Justification Hyperkalemia, end-stage renal disease CHARLIE CHAVEZ MD May 09, 2021 15:14
[2021-05-09 16:37] VITALS: BP 113/74
[2021-05-09 16:51] VITALS: BP 139/60
--- NOTE | 2021-05-09 18:13 | EKG ---
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
[2021-05-09 18:15] VITALS: BP 133/65
[2021-05-09] MEDS ORDERED: ONDANSETRON PF 4 MG/2 ML VIAL. IVP PRN (18:30)
[2021-05-09] MEDS ORDERED: ACETAMINOPHEN 325 MG TABLET. PO PRN (18:30)
[2021-05-09] MEDS ORDERED: traMADol 50 MG TABLET PO PRN (18:30)
[2021-05-09] MEDS ORDERED: fentaNYL PF VIAL 100 MCG/2 ML VIAL IVP PRN (18:30)
[2021-05-09] MEDS ORDERED: hydrALAZINE 20 MG/ML VIAL. IVP PRN (18:30)
--- NOTE | 2021-05-09 20:33 | NUR ---
The patient, DENISE PAN, 85 y/o, F admitted by CHARLIE CHAVEZ MD, was given written information regarding hospital policies, unit procedures and contact persons. Pt arrived to unit at 2024 per cart accompanied by Daughter pt assisted to bed with total assist, gantry crane operator applied to pt vs obtained and stable assessment completedt denied pain at this time. pt reoriented to surroundings poc explained to pt daughter, pt daughter assisted with pt history bed alarm set call light placed in reach will resume care and continue to monitor pt.
[2021-05-09 20:40] VITALS: BP 124/52
[2021-05-09] MEDS ORDERED: ZIPRASIDONE 20 MG CAPSULE PO SCH (21:00)
[2021-05-09] MEDS: ZIPRASIDONE 20 MG CAPSULE PO SCH (21:55)
[2021-05-09] MEDS: hydrALAZINE 25 MG TABLET PO SCH (21:56)
[2021-05-09] MEDS ORDERED: DEXTROSE 50% 25 GM / 50ML DISP.SYRIN. IV PRN (22:00)
[2021-05-09 23:17] VITALS: BP 119/67
[2021-05-10 03:20] VITALS: BP 99/50
[2021-05-10 04:10] LABS: BASO % 1 % (0-3); EOS # 0.1 x10^3/uL (0.0-0.7); EOS % 2 % (0-3); HEMATOCRIT 22.8 % (36.0-47.0); HEMOGLOBIN 7.5 g/dL (12.0-15.5); LYMPH # 0.5 x10^3/uL (1.0-4.8); LYMPH % 8 % (24-48); MEAN CORPUSCULAR HEMOGLOBIN 29 pg (25-35); MEAN CORPUSCULAR HGB CONC 33 g/dL (31-37); MEAN CORPUSCULAR VOLUME 88 fL (79-100); MONO # 0.5 x10^3/uL (0.0-1.1); MONO % 8 % (0-9); NEUT # 5.3 x10^3/uL (1.8-7.7); NEUT % 82 % (31-73); PLATELET COUNT 232 x10^3/uL (140-400); RED CELL DISTRIBUTION WIDTH 17.6 % (11.5-14.5); WHITE BLOOD COUNT 6.5 x10^3/uL (4.0-11.0)
[2021-05-10 04:26] LABS: ALBUMIN 2.4 g/dL (3.4-5.0); CALCIUM 7.3 mg/dL (8.5-10.1); CREATININE 6.8 mg/dL (0.6-1.0)
[2021-05-10] MEDS: PANTOPRAZOLE 40 MG TABLET.DR. PO SCH (06:15)
[2021-05-10 07:26] VITALS: BP 115/67
[2021-05-10] MEDS: INSULIN LISPRO 300 UNITS/3 ML VIAL. SQ SCH ×3 (08:00→17:00)
--- NOTE | 2021-05-10 09:26 | PDOC2 ---
CONSULT Date of Consult Date of Consult DATE: 05/10/21 TIME: 09:26 Reason for Consult Reason for Consult: ESRD. Missed HD Source Source: Chart review History of Present Illness Reason for Visit: Patient is a 84yo AAF w/ PMHx dementia, Diabetes-Type II, HTN, ESRD on HD on MWF who was brought from home via EMS at the request of her daughter for worsening dyspnea upon exertion and confusion. Patient's SPO2 86-88% on room air upon arrival, 3L oxygen applied via nasal cannula. Patient currently denies any symptoms, denies pain.Daughter notes shortness of breath and her mother stopping while ambulating with her cane to the restroom. S/p Covid vaccine in October 2020. Lives with her granddaughter and has home health aide who assist with patient's care. She has previously been admitted for blood loss anemia and she had EGD on 04/06/2020 with resolving gastritis. She has been on eliquis for left IJ DVT previously which was stopped over a year ago. Hx obtained mostly from chart review- she has Dx of dementia . No reported History of N/VD. No F/C. No CP Chest radiograph: Cardiomegaly. Diffuse bilateral reticular opacities. EKG appears to be irregular atrial arrhythmia possibly flutter or afib Past Medical History Cardiovascular: HTN Heme/Onc: Anemia NOS Renal/: Chronic renal insuff Past Surgical History Past Surgical History: Other Family History Family History: Hypertension Social History No ALCOHOL: none Drugs: None Lives: with Family Current Problem List Problem List Problems Medical Problems: (1) Anemia of chronic disease Status: Acute (2) Exertional dyspnea Status: Acute (3) New onset a-fib Status: Acute (4) Normocytic anemia Status: Acute (5) Symptomatic anemia Status: Acute Current Medications Current Medications Current Medications Ondansetron HCl (Zofran) 4 mg PRN Q4HRS PRN IVP NAUSEA/VOMITING; Start 05/09/21 at 18:30 Acetaminophen (Tylenol) 650 mg PRN Q6HRS PRN PO MILD PAIN / TEMP > 100.3'F; Start 05/09/21 at 18:30 Hydralazine HCl (Apresoline Inj) 10 mg PRN Q4HRS PRN IVP ELEVATED BP, SEE COMMENTS; Start 05/09/21 at 18:30 Tramadol HCl (Ultram) 50 mg PRN Q6HRS PRN PO MODERATE-SEVERE PAIN; Start 05/09/21 at 18:30 Fentanyl Citrate (Fentanyl 2ml Vial) 25 mcg PRN Q3HRS PRN IVP SEVERE PAIN 7-10; Start 05/09/21 at 18:30 Hydralazine HCl (Apresoline) 50 mg BID PO Last administered on 05/09/21at 21:56; Start 05/09/21 at 21:00 Pantoprazole Sodium (Protonix) 40 mg DAILYAC PO Last administered on 05/10/21at 06:15; Start 05/10/21 at 07:30 Ziprasidone (Geodon) 40 mg HS PO ; Start 05/09/21 at 21:00; Status Cancel Olanzapine (ZyPREXA ZYDIS) 5 mg PRN BID PRN PO ANXIETY / AGITATION; Start 05/09/21 at 18:30 Ziprasidone (Geodon) 20 mg HS PO Last administered on 05/09/21at 21:55; Start 05/09/21 at 21:00 Insulin Human Lispro (HumaLOG) 0-9 UNITS TIDWMEALS SQ ; Start 05/10/21 at 08:00 Dextrose (Dextrose 50%-Water Syringe) 12.5 gm PRN Q15MIN PRN IV SEE COMMENTS; Start 05/09/21 at 22:00 Active Scripts Active Reported Iron (Ferrous Sulfate) 325 Mg Tablet 1 Tab PO DAILY 30 Days Omeprazole 40 Mg Capsule.dr 40 Mg PO HS Ziprasidone Hcl 40 Mg Capsule 20 Mg PO HS Sarahy-Angelia Tablet (Folic Acid/Vitamin B Comp W-C) 0.8 Mg Tablet 1 Tab PO DAILY08 30 Days Donepezil Hcl 5 Mg Tablet 10 Mg PO QHS Hydralazine Hcl 25 Mg Tablet 2 Tab PO BID Allergies Allergies: Coded Allergies: Sulfa (Sulfonamide Antibiotics) (Verified Allergy, Severe, RODRIGUEZ DUSTIN SYNDROME, 05/09/21) Penicillins (Verified Allergy, Intermediate, 05/09/21) propoxyphene (Verified Allergy, Intermediate, 05/09/21) ROS Review of System As per HPI, rest of the ROS is negative Physical Exam Physical Exam General: No acute distress HEENT: Atraumatic, Mucous membr. moist/pink Neck Supple Lungs: Decreased at bases, Non Labored , On o2 by NC Heart: Aflutter with variable conduction Abdomen: Soft, NT, BS + Extremities: No cyanosis,left arm edema, No LE edema Skin: No rash Neuro: Normal speech, Sensation intact Psych/Mental Status: Dx of dementia No Alvarado, No CAV opr SP tenderness Vital Signs Vital Signs Date Time Temp Pulse Resp B/P (MAP) Pulse Ox O2 Delivery O2 Flow Rate FiO2 05/10/21 07:26 99.0 95 18 115/67 (83) 100 Nasal Cannula 3.0 99.0 Assessment & Plan ESRD - On HD MWF, missed yesterday . Will dialyze today 2/2 c/o SOB and some changes of Pulm congestion on Cxr . Discussed treatment plan with Kaylin Chavarria on chronic diastolic CH- cardiology managing Anemia: Hgb 6.5 POA, recd PRBC , Hgb > 7 this morning AFlutter with variable conduction: rate controlled HTN: controlled Hx of DM2 Dementia LUE edema: chronic? Labs Labs Laboratory Tests Test 05/09/21 12:50 05/09/21 13:25 05/09/21 14:10 05/09/21 15:35 Sodium Level 142 mmol/L (136-145) Potassium Level 4.5 mmol/L (3.5-5.1) Chloride Level 104 mmol/L (98-107) Carbon Dioxide Level 30 mmol/L (21-32) Anion Gap 8 (6-14) Blood Urea Nitrogen 42 mg/dL (7-20) Creatinine 6.7 mg/dL (0.6-1.0) Estimated GFR (Cockcroft-Gault) 7.1 Glucose Level 193 mg/dL (70-99) Lactic Acid Level 2.3 mmol/L (0.4-2.0) Calcium Level 8.1 mg/dL (8.5-10.1) Magnesium Level 2.3 mg/dL (1.8-2.4) Total Bilirubin 0.5 mg/dL (0.2-1.0) Direct Bilirubin 0.2 mg/dL (0.0-0.2) Aspartate Amino Transf (AST/SGOT) 19 U/L (15-37) Alanine Aminotransferase (ALT/SGPT) 30 U/L (14-59) Alkaline Phosphatase 136 U/L (46-116) Troponin I Quantitative 0.065 ng/mL (0.000-0.055) 0.064 ng/mL (0.000-0.055) ZA-Nqg-I-Type Natriuretic Peptide > 34062 pg/mL (0-449) Total Protein 6.6 g/dL (6.4-8.2) Albumin 2.9 g/dL (3.4-5.0) Lipase 156 U/L (73-393) SARS-CoV-2 RNA (LOVE) Invalid (Negative) SARS-CoV-2 Antigen (Rapid) Negative (NEGATIVE) White Blood Count 5.9 x10^3/uL (4.0-11.0) Red Blood Count 2.39 x10^6/uL (3.50-5.40) Hemoglobin 6.6 g/dL (12.0-15.5) Hematocrit 20.8 % (36.0-47.0) Mean Corpuscular Volume 87 fL (79-100) Mean Corpuscular Hemoglobin 28 pg (25-35) Mean Corpuscular Hemoglobin Concent 32 g/dL (31-37) Red Cell Distribution Width 18.2 % (11.5-14.5) Platelet Count 245 x10^3/uL (140-400) Neutrophils (%) (Auto) 82 % (31-73) Lymphocytes (%) (Auto) 7 % (24-48) Monocytes (%) (Auto) 9 % (0-9) Eosinophils (%) (Auto) 1 % (0-3) Basophils (%) (Auto) 1 % (0-3) Neutrophils # (Auto) 4.8 x10^3/uL (1.8-7.7) Lymphocytes # (Auto) 0.4 x10^3/uL (1.0-4.8) Monocytes # (Auto) 0.5 x10^3/uL (0.0-1.1) Eosinophils # (Auto) 0.1 x10^3/uL (0.0-0.7) Basophils # (Auto) 0.0 x10^3/uL (0.0-0.2) Test 05/09/21 16:45 05/10/21 03:30 Lactic Acid Level 1.1 mmol/L (0.4-2.0) White Blood Count 6.5 x10^3/uL (4.0-11.0) Red Blood Count 2.60 x10^6/uL (3.50-5.40) Hemoglobin 7.5 g/dL (12.0-15.5) Hematocrit 22.8 % (36.0-47.0) Mean Corpuscular Volume 88 fL (79-100) Mean Corpuscular Hemoglobin 29 pg (25-35) Mean Corpuscular Hemoglobin Concent 33 g/dL (31-37) Red Cell Distribution Width 17.6 % (11.5-14.5) Platelet Count 232 x10^3/uL (140-400) Neutrophils (%) (Auto) 82 % (31-73) Lymphocytes (%) (Auto) 8 % (24-48) Monocytes (%) (Auto) 8 % (0-9) Eosinophils (%) (Auto) 2 % (0-3) Basophils (%) (Auto) 1 % (0-3) Neutrophils # (Auto) 5.3 x10^3/uL (1.8-7.7) Lymphocytes # (Auto) 0.5 x10^3/uL (1.0-4.8) Monocytes # (Auto) 0.5 x10^3/uL (0.0-1.1) Eosinophils # (Auto) 0.1 x10^3/uL (0.0-0.7) Basophils # (Auto) 0.0 x10^3/uL (0.0-0.2) Sodium Level 142 mmol/L (136-145) Potassium Level 5.0 mmol/L (3.5-5.1) Chloride Level 103 mmol/L (98-107) Carbon Dioxide Level 31 mmol/L (21-32) Anion Gap 8 (6-14) Blood Urea Nitrogen 47 mg/dL (7-20) Creatinine 6.8 mg/dL (0.6-1.0) Estimated GFR (Cockcroft-Gault) 7.0 Glucose Level 112 mg/dL (70-99) Calcium Level 7.3 mg/dL (8.5-10.1) Phosphorus Level 5.0 mg/dL (2.6-4.7) Troponin I Quantitative 0.069 ng/mL (0.000-0.055) Albumin 2.4 g/dL (3.4-5.0) Thyroid Stimulating Hormone (TSH) 2.979 uIU/mL (0.358-3.74) Laboratory Tests Test 05/09/21 12:50 05/09/21 13:25 05/09/21 14:10 05/09/21 15:35 Sodium Level 142 mmol/L (136-145) Potassium Level 4.5 mmol/L (3.5-5.1) Chloride Level 104 mmol/L (98-107) Carbon Dioxide Level 30 mmol/L (21-32) Anion Gap 8 (6-14) Blood Urea Nitrogen 42 mg/dL (7-20) Creatinine 6.7 mg/dL (0.6-1.0) Estimated GFR (Cockcroft-Gault) 7.1 Glucose Level 193 mg/dL (70-99) Lactic Acid Level 2.3 mmol/L (0.4-2.0) Calcium Level 8.1 mg/dL (8.5-10.1) Magnesium Level 2.3 mg/dL (1.8-2.4) Total Bilirubin 0.5 mg/dL (0.2-1.0) Direct Bilirubin 0.2 mg/dL (0.0-0.2) Aspartate Amino Transf (AST/SGOT) 19 U/L (15-37) Alanine Aminotransferase (ALT/SGPT) 30 U/L (14-59) Alkaline Phosphatase 136 U/L (46-116) Troponin I Quantitative 0.065 ng/mL (0.000-0.055) 0.064 ng/mL (0.000-0.055) TE-Aac-P-Type Natriuretic Peptide > 55396 pg/mL (0-449) Total Protein 6.6 g/dL (6.4-8.2) Albumin 2.9 g/dL (3.4-5.0) Lipase 156 U/L (73-393) SARS-CoV-2 RNA (LOVE) Invalid (Negative) SARS-CoV-2 Antigen (Rapid) Negative (NEGATIVE) White Blood Count 5.9 x10^3/uL (4.0-11.0) Red Blood Count 2.39 x10^6/uL (3.50-5.40) Hemoglobin 6.6 g/dL (12.0-15.5) Hematocrit 20.8 % (36.0-47.0) Mean Corpuscular Volume 87 fL (79-100) Mean Corpuscular Hemoglobin 28 pg (25-35) Mean Corpuscular Hemoglobin Concent 32 g/dL (31-37) Red Cell Distribution Width 18.2 % (11.5-14.5) Platelet Count 245 x10^3/uL (140-400) Neutrophils (%) (Auto) 82 % (31-73) Lymphocytes (%) (Auto) 7 % (24-48) Monocytes (%) (Auto) 9 % (0-9) Eosinophils (%) (Auto) 1 % (0-3) Basophils (%) (Auto) 1 % (0-3) Neutrophils # (Auto) 4.8 x10^3/uL (1.8-7.7) Lymphocytes # (Auto) 0.4 x10^3/uL (1.0-4.8) Monocytes # (Auto) 0.5 x10^3/uL (0.0-1.1) Eosinophils # (Auto) 0.1 x10^3/uL (0.0-0.7) Basophils # (Auto) 0.0 x10^3/uL (0.0-0.2) Test 05/09/21 16:45 05/10/21 03:30 Lactic Acid Level 1.1 mmol/L (0.4-2.0) White Blood Count 6.5 x10^3/uL (4.0-11.0) Red Blood Count 2.60 x10^6/uL (3.50-5.40) Hemoglobin 7.5 g/dL (12.0-15.5) Hematocrit 22.8 % (36.0-47.0) Mean Corpuscular Volume 88 fL (79-100) Mean Corpuscular Hemoglobin 29 pg (25-35) Mean Corpuscular Hemoglobin Concent 33 g/dL (31-37) Red Cell Distribution Width 17.6 % (11.5-14.5) Platelet Count 232 x10^3/uL (140-400) Neutrophils (%) (Auto) 82 % (31-73) Lymphocytes (%) (Auto) 8 % (24-48) Monocytes (%) (Auto) 8 % (0-9) Eosinophils (%) (Auto) 2 % (0-3) Basophils (%) (Auto) 1 % (0-3) Neutrophils # (Auto) 5.3 x10^3/uL (1.8-7.7) Lymphocytes # (Auto) 0.5 x10^3/uL (1.0-4.8) Monocytes # (Auto) 0.5 x10^3/uL (0.0-1.1) Eosinophils # (Auto) 0.1 x10^3/uL (0.0-0.7) Basophils # (Auto) 0.0 x10^3/uL (0.0-0.2) Sodium Level 142 mmol/L (136-145) Potassium Level 5.0 mmol/L (3.5-5.1) Chloride Level 103 mmol/L (98-107) Carbon Dioxide Level 31 mmol/L (21-32) Anion Gap 8 (6-14) Blood Urea Nitrogen 47 mg/dL (7-20) Creatinine 6.8 mg/dL (0.6-1.0) Estimated GFR (Cockcroft-Gault) 7.0 Glucose Level 112 mg/dL (70-99) Calcium Level 7.3 mg/dL (8.5-10.1) Phosphorus Level 5.0 mg/dL (2.6-4.7) Troponin I Quantitative 0.069 ng/mL (0.000-0.055) Albumin 2.4 g/dL (3.4-5.0) Thyroid Stimulating Hormone (TSH) 2.979 uIU/mL (0.358-3.74) Review All relevant outside records, renal labs, imaging studies, telemetry/EKG's were reviewed. Images Images Chest radiograph. VIEWS: Single view COMPARISON: 05/12/2020 INDICATION:85 years, Female, shortness of breath. FINDINGS: Cardiomegaly. Diffuse bilateral reticular opacities. Left retrocardiac patchy airspace opacity. No pneumothorax. No acute osseous process. IMPRESSION: 1. Cardiomegaly with diffuse bilateral reticular opacities, suggesting of interstitial pulmonary edema. 2. Left retrocardiac patchy airspace opacity, may reflect small pleural effusion with associated atelectasis. Infiltrate cannot be excluded. Electronically signed by: Armand Tyson MD (05/09/2021 2:52 PM) [id number] SALVADOR KOWALSKI MD May 10, 2021 09:26
[2021-05-10] MEDS: hydrALAZINE 25 MG TABLET PO SCH ×2 (09:57→21:47)
[2021-05-10 10:35] VITALS: BP 112/50
--- NOTE | 2021-05-10 11:01 | NUR ---
SS following for discharge planning. SS reviewed pt chart and discussed with pt RN. Pt is from home with granddaughter and assistance from home healthcare aide. Pt is currently requiring oxygen at three liters nasal canula. Pt has no home oxygen. Pt has outpatient hemodialysis at [facility], ; fax [phone], Friday, Friday, and Friday. Pt has had services with [facility] in the past, ; fax [phone]. SS will continue to follow for discharge planning.
[2021-05-10] MEDS ORDERED: IV NORMAL SALINE 1000ML BAG 1,000 ML IV PRN ×2 (11:30)
[2021-05-10] MEDS ORDERED: DIALYSIS PATIENT. MC PRN ×2 (11:30)
[2021-05-10] MEDS ORDERED: diphenhydrAMINE 50 MG/ML VIAL IV PRN ×2 (11:30)
[2021-05-10] MEDS ORDERED: ALBUMIN HUMAN 25% 200 ML IV PRN (11:30)
--- NOTE | 2021-05-10 11:46 | PDOC2 ---
LIMA GREEN TRANSPORTATION MAINTENANCE OPERATOR 05/10/21 1146: CARDIAC CONSULT DATE OF CONSULT Date of Consult DATE: 05/10/21 TIME: 11:28 REASON FOR CONSULT Reason for Consult: New onset AFIB REFERRING PHYSICIAN Referring Physician: [facility] SOURCE Source: Chart review HISTORY OF PRESENT ILLNESS HISTORY OF PRESENT ILLNESS This is an 85 yo female admitted for complains of shortness of breath. Presently she is confused but not in respiratory distress. She was noted by her daughter with tachypnea and SOA with exertion. She lives at home and care for by her daughter. Upon admission she was noted with severe anemia but no obvious bleed. She appears better after receiving blood transfusion. She is due to have HD. No known hx of CAD. No noted complains of chest pain. No hx of syncope nor known arrhythmias. She has been vaccinated for covid-19 last 10/2020 PAST MEDICAL HISTORY Cardiovascular: HTN, Hyperlipidemia CENTRAL NERVOUS SYSTEM: Dementia GI: GERD Heme/Onc: Anemia NOS, Cancer (breast) Musculoskeletal: Osteoarthritis Renal/: Chronic renal failure Endocrine: Diabetes (2) PAST SURGICAL HISTORY Past Surgical History: Mastectomy (right), Other ([place] dialysis fistula) FAMILY HISTORY Family History: Family History Unknown SOCIAL HISTORY Smoke: No ALCOHOL: none Drugs: None Lives: with Family CURRENT MEDICATIONS CURRENT MEDICATIONS Current Medications Medications (Trade) Dose Ordered Sig/Diana Route PRN Reason Start Time Stop Time Status Last Admin Dose Admin Hydralazine HCl (Apresoline) 50 mg BID PO 05/09/21 21:00 05/10/21 09:57 Pantoprazole Sodium (Protonix) 40 mg DAILYAC PO 05/10/21 07:30 05/10/21 06:15 Ziprasidone (Geodon) 20 mg HS PO 05/09/21 21:00 05/09/21 21:55 ALLERGIES ALLERGIES: Coded Allergies: Sulfa (Sulfonamide Antibiotics) (Verified Allergy, Severe, RODRIGUEZ DUSTIN SYNDROME, 05/09/21) Penicillins (Verified Allergy, Intermediate, 05/09/21) propoxyphene (Verified Allergy, Intermediate, 05/09/21) ROS Review of System unreliable, confused PHYSICAL EXAM General: Alert, Cooperative, No acute distress HEENT: Atraumatic, Mucous membr. moist/pink Lungs: Other (basilar cacckles) Heart: Other (Aflutter with variable conduction) Abdomen: Soft Extremities: No cyanosis, Other (left arm edema) Skin: No breakdown Neuro: Normal speech, Sensation intact Psych/Mental Status: Other (confused) VITALS/I&O VITALS/I&O: Vital Signs Date Time Temp Pulse Resp B/P (MAP) Pulse Ox O2 Delivery O2 Flow Rate FiO2 05/10/21 10:35 98.9 72 18 112/50 (70) 99 Nasal Cannula 3.0 98.9 I & O 05/09/21 05/09/21 05/10/21 15:00 23:00 07:00 Intake Total 350 ml 0 ml Balance 350 ml 0 ml LABS Lab: Laboratory Tests Test 05/09/21 12:50 05/09/21 13:25 05/09/21 14:10 05/09/21 15:35 Sodium Level 142 mmol/L (136-145) Potassium Level 4.5 mmol/L (3.5-5.1) Chloride Level 104 mmol/L (98-107) Carbon Dioxide Level 30 mmol/L (21-32) Anion Gap 8 (6-14) Blood Urea Nitrogen 42 mg/dL (7-20) H Creatinine 6.7 mg/dL (0.6-1.0) H Estimated GFR (Cockcroft-Gault) 7.1 Glucose Level 193 mg/dL (70-99) H Lactic Acid Level 2.3 mmol/L (0.4-2.0) H Calcium Level 8.1 mg/dL (8.5-10.1) L Magnesium Level 2.3 mg/dL (1.8-2.4) Total Bilirubin 0.5 mg/dL (0.2-1.0) Direct Bilirubin 0.2 mg/dL (0.0-0.2) Aspartate Amino Transferase (AST) 19 U/L (15-37) Alanine Aminotransferase (ALT) 30 U/L (14-59) Alkaline Phosphatase 136 U/L (46-116) H Troponin I Quantitative 0.065 ng/mL (0.000-0.055) 0.064 ng/mL (0.000-0.055) AL-Mtk-B-Type Natriuretic Peptide > 04868 pg/mL (0-449) H Total Protein 6.6 g/dL (6.4-8.2) Albumin 2.9 g/dL (3.4-5.0) L Lipase 156 U/L (73-393) SARS-CoV-2 RNA (LOVE) Invalid (Negative) SARS-CoV-2 Antigen (Rapid) Negative (NEGATIVE) White Blood Count 5.9 x10^3/uL (4.0-11.0) Red Blood Count 2.39 x10^6/uL (3.50-5.40) L Hemoglobin 6.6 g/dL (12.0-15.5) *L Hematocrit 20.8 % (36.0-47.0) *L Mean Corpuscular Volume 87 fL (79-100) Mean Corpuscular Hemoglobin 28 pg (25-35) Mean Corpuscular Hemoglobin Concent 32 g/dL (31-37) Red Cell Distribution Width 18.2 % (11.5-14.5) H Platelet Count 245 x10^3/uL (140-400) Neutrophils (%) (Auto) 82 % (31-73) H Lymphocytes (%) (Auto) 7 % (24-48) L Monocytes (%) (Auto) 9 % (0-9) Eosinophils (%) (Auto) 1 % (0-3) Basophils (%) (Auto) 1 % (0-3) Neutrophils # (Auto) 4.8 x10^3/uL (1.8-7.7) Lymphocytes # (Auto) 0.4 x10^3/uL (1.0-4.8) L Monocytes # (Auto) 0.5 x10^3/uL (0.0-1.1) Eosinophils # (Auto) 0.1 x10^3/uL (0.0-0.7) Basophils # (Auto) 0.0 x10^3/uL (0.0-0.2) Test 05/09/21 16:45 05/10/21 03:30 Lactic Acid Level 1.1 mmol/L (0.4-2.0) White Blood Count 6.5 x10^3/uL (4.0-11.0) Red Blood Count 2.60 x10^6/uL (3.50-5.40) L Hemoglobin 7.5 g/dL (12.0-15.5) L Hematocrit 22.8 % (36.0-47.0) L Mean Corpuscular Volume 88 fL (79-100) Mean Corpuscular Hemoglobin 29 pg (25-35) Mean Corpuscular Hemoglobin Concent 33 g/dL (31-37) Red Cell Distribution Width 17.6 % (11.5-14.5) H Platelet Count 232 x10^3/uL (140-400) Neutrophils (%) (Auto) 82 % (31-73) H Lymphocytes (%) (Auto) 8 % (24-48) L Monocytes (%) (Auto) 8 % (0-9) Eosinophils (%) (Auto) 2 % (0-3) Basophils (%) (Auto) 1 % (0-3) Neutrophils # (Auto) 5.3 x10^3/uL (1.8-7.7) Lymphocytes # (Auto) 0.5 x10^3/uL (1.0-4.8) L Monocytes # (Auto) 0.5 x10^3/uL (0.0-1.1) Eosinophils # (Auto) 0.1 x10^3/uL (0.0-0.7) Basophils # (Auto) 0.0 x10^3/uL (0.0-0.2) Sodium Level 142 mmol/L (136-145) Potassium Level 5.0 mmol/L (3.5-5.1) Chloride Level 103 mmol/L (98-107) Carbon Dioxide Level 31 mmol/L (21-32) Anion Gap 8 (6-14) Blood Urea Nitrogen 47 mg/dL (7-20) H Creatinine 6.8 mg/dL (0.6-1.0) H Estimated GFR (Cockcroft-Gault) 7.0 Glucose Level 112 mg/dL (70-99) H Calcium Level 7.3 mg/dL (8.5-10.1) L Phosphorus Level 5.0 mg/dL (2.6-4.7) H Troponin I Quantitative 0.069 ng/mL (0.000-0.055) Albumin 2.4 g/dL (3.4-5.0) L Thyroid Stimulating Hormone (TSH) 2.979 uIU/mL (0.358-3.74) Laboratory Tests 05/09/21 14:10 05/10/21 03:30 Laboratory Tests 05/09/21 12:50 05/10/21 03:30 HEART CATH HEART CATH Conclusion 1. No significant coronary disease 2. Hyperdynamic left ventricle systolic function with ejection fraction estimated at 80%. Recommendations Patient's non-STEMI is most probably type II/demand ischemia. Continue medical management. DATE: 03/06/20 1120 ASSESSMENT/PLAN ASSESSMENT/PLAN 1. Acute on chronic diastolic CHF 2. Anemia: Hgb 6.5 which likely induced CHF and AFIB. Post transfusion. no obvious bleed 3. AFlutter with variable conduction: rate controlled 4. HTN: controlled 5. HLP 6. Hx of DM2: no coverage 7. Dementia 8. LUE edema: chronic? 9. ESRD 10. Mild troponin elevation: demand mediated with culprits above Recommendations 1. Fluid off loading per HD 2. Continue secondary prevention measures 3. TTE 4. Start on low dose toprol 5. Not a candidate for anticoagulation. ASA moving forward if no GI bleed. GAYATHRI BALDWIN MD 05/11/21 0907: CARDIAC CONSULT ASSESSMENT/PLAN ASSESSMENT/PLAN Patient seen and examined 05/10/2021. Agree with HOTEL RECEPTIONIST's assessment and plan. Atrial flutter rate controlled. Patient probably a poor candidate for long-term anticoagulation Continue fluid removal with hemodialysis for acute on chronic diastolic heart failure 2D echo showed normal LV systolic function with mild aortic stenosis Slight troponin elevation probably demand ischemia Continue current work-up for anemia Thank you for your consultation LIMA GREEN APRN May 10, 2021 11:46 GAYATHRI BALDWIN MD May 11, 2021 09:07
[2021-05-10 12:19] LABS: CHOLESTEROL/HDL RATIO 2.6
--- NOTE | 2021-05-10 14:03 | PDOC ---
[employer] PROGRESS NOTE Date of Service DOS: DATE: 05/10/21 TIME: 14:01 Chief Complaint Chief Complaint A/P: Acute hypoxic respiratory failure - likely diastolic CHF and pulmonary edema due to worsening anemia. Possibly patient has been losing weight and may need additional ultrafiltration and dry weight adjustment. No cough or recent hospital stays or sick contacts no clear pneumonia Acute on chronic anemia - s/p transfusion for symptomatic anemia. Check fecal occult End-stage renal disease on hemodialysis - MWF normally. Will consult nephrology for dialysis scheduling while inpatient Moderate protein calorie malnutrition - nepro with meals Dementia - on aricept, would hold this given her history of GI bleeding and new arrhythmia Acute atrial arrhythmia - does appear to be atrial flutter with variable c onduction. Would not anticoagulate given 2 admissions for GI bleeding in 2019 while anticoagulating a DVT Acute encephalopathy - noted by daughter to be more confused, could be metabolic due to anemia, but could be due to dementia HTN - cont home meds, prn hydralazine DM2 - sliding scale insulin FEN - Renal ada diet PPX - SCDs, PPI FULL CODE. discussed with daughter bedside, she will discuss possible DNR with her brother Dispo - inpatient for above History of Present Illness History of Present Illness Ms Michelle is an 84yo F w/ PMHx dementia, Diabetes-Type II, HTN, ESRD on HD on MWF who was brought here from home via EMS at the request of her daughter for worsening dyspnea upon exertion and confusion. Patient's SPO2 86-88% on room air upon arrival, 3L oxygen applied via nasal cannula. Patient currently denies any symptoms, denies pain. Respirations even and unlabored. Patient was due to have hemodialysis today but appointment rescheduled to tomorrow per EMS. Daughter notes shortness of breath and her mother stopping while ambulating with her cane to the restroom. S/p Covid vaccine in October 2020. Lives with her granddaughter and has home health aide who assist with patient's care. She has previously been admitted for blood loss anemia and she had EGD on 04/06/2020 with resolving gastritis. She has been on eliquis for left IJ DVT previously which was stopped over a year ago. Patient does not seem to comprehend the fact that due to the dialysis treatment she will need constant monitoring and patient also has had a history of nonadherence to treatment plans previously. Patient pleasantly demented, she does not seem to know she is in the hospital. WBC 5.9, Hb 6.6, platelets 245, NA 142, K4.5, BUN 42, creatinine 6.7, glucose 193, calcium 8.1, magnesium 2.3, LFTs within normal laboratory limits albumin 2.9, rapid COVID-19 negative Chest radiograph: Cardiomegaly. Diffuse bilateral reticular opacities. EKG appears to be irregular atrial arrhythmia possibly flutter or afib with rate approximately 84bpm and left axis deviation. No ST segment elevations or TWI. Hb up to 7.5 posttransfusion little less short of breath today. She is pleasantly confused Discussed with nephrology she missed dialysis. Rate controlled A. flutter on library monitor, reviewed. Vitals/I&O Vitals/I&O: Vital Signs Date Time Temp Pulse Resp B/P (MAP) Pulse Ox O2 Delivery O2 Flow Rate FiO2 05/10/21 10:35 98.9 72 18 112/50 (70) 99 Nasal Cannula 3.0 98.9 I & O 05/09/21 05/09/21 05/10/21 14:59 22:59 06:59 Intake Total 350 ml 0 ml Balance 350 ml 0 ml Physical Exam General: Alert, Cooperative, No acute distress Heart: Other (Aflutter with variable conduction) Lungs: Wheezing Abdomen: Soft Extremities: No cyanosis, Other (left arm edema) Skin: No breakdown Labs Labs: Laboratory Tests Test 05/09/21 14:10 05/09/21 15:35 05/09/21 16:45 05/10/21 03:30 White Blood Count 5.9 x10^3/uL (4.0-11.0) 6.5 x10^3/uL (4.0-11.0) Red Blood Count 2.39 x10^6/uL (3.50-5.40) 2.60 x10^6/uL (3.50-5.40) Hemoglobin 6.6 g/dL (12.0-15.5) 7.5 g/dL (12.0-15.5) Hematocrit 20.8 % (36.0-47.0) 22.8 % (36.0-47.0) Mean Corpuscular Volume 87 fL (79-100) 88 fL (79-100) Mean Corpuscular Hemoglobin 28 pg (25-35) 29 pg (25-35) Mean Corpuscular Hemoglobin Concent 32 g/dL (31-37) 33 g/dL (31-37) Red Cell Distribution Width 18.2 % (11.5-14.5) 17.6 % (11.5-14.5) Platelet Count 245 x10^3/uL (140-400) 232 x10^3/uL (140-400) Neutrophils (%) (Auto) 82 % (31-73) 82 % (31-73) Lymphocytes (%) (Auto) 7 % (24-48) 8 % (24-48) Monocytes (%) (Auto) 9 % (0-9) 8 % (0-9) Eosinophils (%) (Auto) 1 % (0-3) 2 % (0-3) Basophils (%) (Auto) 1 % (0-3) 1 % (0-3) Neutrophils # (Auto) 4.8 x10^3/uL (1.8-7.7) 5.3 x10^3/uL (1.8-7.7) Lymphocytes # (Auto) 0.4 x10^3/uL (1.0-4.8) 0.5 x10^3/uL (1.0-4.8) Monocytes # (Auto) 0.5 x10^3/uL (0.0-1.1) 0.5 x10^3/uL (0.0-1.1) Eosinophils # (Auto) 0.1 x10^3/uL (0.0-0.7) 0.1 x10^3/uL (0.0-0.7) Basophils # (Auto) 0.0 x10^3/uL (0.0-0.2) 0.0 x10^3/uL (0.0-0.2) Troponin I Quantitative 0.064 ng/mL (0.000-0.055) 0.069 ng/mL (0.000-0.055) Lactic Acid Level 1.1 mmol/L (0.4-2.0) Sodium Level 142 mmol/L (136-145) Potassium Level 5.0 mmol/L (3.5-5.1) Chloride Level 103 mmol/L (98-107) Carbon Dioxide Level 31 mmol/L (21-32) Anion Gap 8 (6-14) Blood Urea Nitrogen 47 mg/dL (7-20) Creatinine 6.8 mg/dL (0.6-1.0) Estimated GFR (Cockcroft-Gault) 7.0 Glucose Level 112 mg/dL (70-99) Calcium Level 7.3 mg/dL (8.5-10.1) Phosphorus Level 5.0 mg/dL (2.6-4.7) Albumin 2.4 g/dL (3.4-5.0) Triglycerides Level 41 mg/dL (0-150) Cholesterol Level 110 mg/dL (0-200) LDL Cholesterol, Calculated 59 mg/dL (0-100) VLDL Cholesterol, Calculated 8 mg/dL (0-40) Non-HDL Cholesterol Calculated 67 mg/dL (0-129) HDL Cholesterol 43 mg/dL (40-60) Cholesterol/HDL Ratio 2.6 Thyroid Stimulating Hormone (TSH) 2.979 uIU/mL (0.358-3.74) Hepatitis B Surface Antigen Nonreactive (Nonreactive) Hepatitis B Surface Antibody Nonreactive Test 05/10/21 11:54 Glucose (Fingerstick) 135 mg/dL (70-99) Assessment and Plan Assessmemt and Plan Problems Medical Problems: (1) Anemia of chronic disease Status: Acute (2) Exertional dyspnea Status: Acute (3) New onset a-fib Status: Acute (4) Normocytic anemia Status: Acute (5) Symptomatic anemia Status: Acute Comment Review of Relevant I have reviewed the following items rose (where applicable) has been applied. Medications: Current Medications Medications (Trade) Dose Ordered Sig/Diana Route PRN Reason Start Time Stop Time Status Last Admin Dose Admin Hydralazine HCl (Apresoline) 50 mg BID PO 05/09/21 21:00 05/10/21 09:57 Pantoprazole Sodium (Protonix) 40 mg DAILYAC PO 05/10/21 07:30 05/10/21 06:15 Ziprasidone (Geodon) 20 mg HS PO 05/09/21 21:00 05/09/21 21:55 Justifications for Admission Other Justification Hyperkalemia, end-stage renal disease CHARLIE CHAVEZ MD May 10, 2021 14:03
[2021-05-10 14:04] VITALS: BP 115/49
--- NOTE | 2021-05-10 16:49 | CARD ---
MR#: [id number] Date of Study: 05/10/2021 Ordering Physician: LIMA GREEN, Referring Physician: LIMA GREEN, Tech: Makenna Riveralilliandivina, [facility] APPROVED REPORT EXAM: Two-dimensional and M-mode echocardiogram with Doppler and color Doppler. Other Information Quality : AverageHR: 88bpm INDICATION Dyspnea Congestive Heart Failure RISK FACTORS Hypertension Diabetes 2D DIMENSIONS Left Atrium(2D)3.8 (1.6-4.0cm)IVSd1.5 (0.7-1.1cm) Aortic Root(2D)2.6 (2.0-3.7cm)LVDd4.2 (3.9-5.9cm) LVOT Diameter1.9 (1.8-2.4cm)PWd1.3 (0.7-1.1cm) LVDs3.7 (2.5-4.0cm)FS (%) 12.0 % SV20.5 ml Aortic Valve AoV Peak Carlo.230.0cm/sAoV VTI48.0cm AO Peak GR.21.2mmHgLVOT VTI 17.59cm AO Mean GR.11mmHgAI P 1/2 Uosy196wx Mitral Valve MV E Ibaotqxw060.6cm/sMV E Peak Gr.6mmHg MV DECEL [id number] A Zppovhkh53.0cm/s MV E Mean Gr.2mmHgE/A Ratio2.8 TDI Lateral E' P. V4.70cm/sMedial E' P. V3.09cm/s E/Lateral E'25.2E/Medial E'38.4 Tricuspid Valve TR P. Itagunoc120hs/sRAP [id number] TR Peak Gr.90ztTfQPBD02tqDz Pulmonary Vein S1 Scwuvfmq25.5cm/sS2 Wdmznouh00.58cm/s D2 Rkgnudkm23.6cm/s LEFT VENTRICLE The left ventricle is normal size. There is moderate to moderately severe concentric left ventricular hypertrophy. The left ventricular systolic function is normal and the ejection fraction is within no rmal range. The Ejection Fraction is 50-55%. There is normal LV segmental wall motion. Tissue Doppler imaging reveals moderate left ventricular diastolic dysfunction. RIGHT VENTRICLE The right ventricle is normal size. There is normal right ventricular wall thickness. The right ventr icular systolic function is normal. ATRIA The left atrium is borderline dilated. The right atrium size is normal. The interatrial septum is int act with no evidence for an atrial septal defect or patent foramen ovale as noted on 2-D or Doppler i maging. AORTIC VALVE The aortic valve is calcified but opens well. Doppler and Color Flow revealed trace to mild aortic re gurgitation. Calculated aortic valve area is 1.20 cm2 with maximum pressure gradient of 21 mmHg and m rene pressure gradient of 11 mmHg. There is mild valvular aortic stenosis. MITRAL VALVE The mitral valve is normal in structure and function. There is no evidence of mitral valve prolapse. There is no mitral valve stenosis. Doppler and Color-flow revealed trace mitral regurgitation. TRICUSPID VALVE The tricuspid valve is normal in structure and function. Doppler and Color Flow revealed mild tricusp id regurgitation with an estimated PAP of 50 mmHg. There is no tricuspid valve stenosis. PULMONIC VALVE The pulmonary valve is normal in structure and function. GREAT VESSELS The aortic root is normal in size. The ascending aorta is normal in size. The IVC is dilated. PERICARDIAL EFFUSION There is no evidence of significant pericardial effusion. Critical Notification Critical Value: No <Conclusion> The left ventricle is normal size. The left ventricular systolic function is normal and the ejection fraction is within normal range. The Ejection Fraction is 50-55%. There is moderate to moderately severe concentric left ventricular hypertrophy. Tissue Doppler imaging reveals moderate left ventricular diastolic dysfunction. Doppler and Color Flow revealed trace to mild aortic regurgitation. Calculated aortic valve area is 1.20 cm2 with maximum pressure gradient of 21 mmHg and mean pressure gradient of 11 mmHg. There is mild valvular aortic stenosis. Doppler and Color-flow revealed trace mitral regurgitation. Doppler and Color Flow revealed mild tricuspid regurgitation with an estimated PAP of 50 mmHg. Signed by : Micha Eisenberg MD Electronically Approved : 05/10/2021 16:48:59
[2021-05-10 19:10] VITALS: BP 102/50
[2021-05-10] MEDS: METOPROLOL SUCC 24HR ER 25 MG TAB.ER.24H. PO SCH (19:59)
--- NOTE | 2021-05-10 20:00 | NUR ---
Pt in bed assessment completed vss poc explained pt reorientated to surroundings pt denied pain call light place din reach and bed alarm set will resume care and continue to monitor pt.
[2021-05-10] MEDS: ZIPRASIDONE 20 MG CAPSULE PO SCH (21:46)
[2021-05-10 22:47] VITALS: BP 95/63
[2021-05-11 02:06] VITALS: BP 95/48
[2021-05-11 05:11] LABS: CREATININE 5.8 mg/dL (0.6-1.0); GFR 8.4; POTASSIUM 4.4 mmol/L (3.5-5.1)
[2021-05-11 06:00] VITALS: BP 154/66
[2021-05-11] MEDS: PANTOPRAZOLE 40 MG TABLET.DR. PO SCH (06:44)
[2021-05-11] MEDS: INSULIN LISPRO 300 UNITS/3 ML VIAL. SQ SCH ×3 (08:00→17:16)
[2021-05-11] MEDS: hydrALAZINE 25 MG TABLET PO SCH ×2 (09:00→21:00)
[2021-05-11] MEDS: METOPROLOL SUCC 24HR ER 25 MG TAB.ER.24H. PO SCH (09:00)
[2021-05-11] MEDS ORDERED: DIALYSIS PATIENT. MC PRN ×2 (09:15)
[2021-05-11] MEDS ORDERED: ALBUMIN HUMAN 25% 200 ML IV PRN (09:15)
[2021-05-11] MEDS ORDERED: IV NORMAL SALINE 1000ML BAG 1,000 ML IV PRN ×2 (09:15)
--- NOTE | 2021-05-11 10:46 | PDOC ---
LIMA GREEN VIDEO PRESENTATION OPERATOR 05/11/21 1046: CARDIO Progress Notes Date and Time Date of Service 05/11/2021 Time of Evaluation 0950 Subjective Subjective: No Chest Pain, No shortness of breath, No Palpitations Vitals Vitals Vital Signs Date Time Temp Pulse Resp B/P (MAP) Pulse Ox O2 Delivery O2 Flow Rate FiO2 05/11/21 07:42 97.7 60 18 95 Nasal Cannula 3.0 97.7 05/11/21 06:00 154/66 (95) Weight Weight [ ] Input and Output Intake and Output Intake and Output 05/11/21 07:00 Intake Total 820 ml Output Total 0 ml Balance 820 ml Intake Oral 820 ml Output Urine Total 0 ml Laboratory Labs Laboratory Tests Test 05/10/21 11:54 05/10/21 21:50 05/11/21 04:15 05/11/21 07:47 Glucose (Fingerstick) 135 mg/dL (70-99) 206 mg/dL (70-99) 112 mg/dL (70-99) Sodium Level 139 mmol/L (136-145) Potassium Level 4.4 mmol/L (3.5-5.1) Chloride Level 100 mmol/L (98-107) Carbon Dioxide Level 31 mmol/L (21-32) Anion Gap 8 (6-14) Blood Urea Nitrogen 36 mg/dL (7-20) Creatinine 5.8 mg/dL (0.6-1.0) Estimated GFR (Cockcroft-Gault) 8.4 Glucose Level 120 mg/dL (70-99) Calcium Level 7.0 mg/dL (8.5-10.1) Microbiology Micro Microbiology 05/09/21 Blood Culture - Preliminary, Resulted NO GROWTH AFTER 1 DAY Physical Exam HEENT: Neck Supple W Full Motion Chest: Symmetric LUNGS: Clear to Auscultation Heart: irregularly irregular (Aflutter with cariable conduction) Abdomen: Soft N/T Extremities: No Calf Tenderness Neurology: alert, follow commands, confused Assessment Assessment 1. Acute on chronic diastolic CHF: compensated 2. Anemia: Hgb 6.5 which likely induced CHF and AFIB. Post transfusion. no obvious bleed 3. AFlutter with variable conduction: rate controlled 4. HTN: controlled 5. HLP 6. Hx of DM2: no coverage 7. Dementia 8. LUE edema: chronic? 9. ESRD 10. Mild troponin elevation: demand mediated with culprits above. EF and WM nml 11. Mild Recommendations 1. Fluid off loading per HD 2. Continue secondary prevention measures 3. Low dose toprol 4. Follow up in office if no outpt environmental compliance inspector. 5. Not a candidate for anticoagulation. ASA moving forward if no GI bleed. Justicifation of Admission Dx: Justifications for Admission: Justification of Admission Dx: Yes Chronic Renal Failure: Electrolyte Abnormality GAYATHRI BALDWIN MD 05/11/21 1540: CARDIO Progress Notes Assessment Assessment Patient seen and examined. Agree with BUILDING ENGINEER's assessment and plan. Atrial flutter rate controlled. Patient probably a poor candidate for long-term anticoagulation Continue fluid removal with hemodialysis for acute on chronic diastolic heart failure 2D echo showed normal LV systolic function with mild aortic stenosis Slight troponin elevation probably demand ischemia LIMA GREEN APRN May 11, 2021 10:46 GAYATHRI BALDWIN MD May 11, 2021 15:40
--- NOTE | 2021-05-11 11:35 | PDOC ---
[employer] PROGRESS NOTE Date of Service DOS: DATE: 05/11/21 TIME: 11:29 Chief Complaint Chief Complaint A/P: Acute hypoxic respiratory failure - likely diastolic CHF and pulmonary edema due to worsening anemia. Possibly patient has been losing weight and may need additional ultrafiltration and dry weight adjustment. No cough or recent hospital stays or sick contacts no clear pneumonia Acute on chronic anemia - s/p transfusion for symptomatic anemia. Check fecal occult End-stage renal disease on hemodialysis - MWF normally. Will consult nephrology for dialysis scheduling while inpatient Moderate protein calorie malnutrition - nepro with meals Dementia - on aricept, would hold this given her history of GI bleeding and new arrhythmia Acute atrial arrhythmia - does appear to be atrial flutter with variable c onduction. Would not anticoagulate given 2 admissions for GI bleeding in 2019 while anticoagulating a DVT Acute encephalopathy - noted by daughter to be more confused, could be metabolic due to anemia, but could be due to dementia HTN - cont home meds, prn hydralazine DM2 - sliding scale insulin FEN - Renal ada diet PPX - SCDs, PPI FULL CODE. discussed with daughter bedside, she will discuss possible DNR with her brother Dispo - inpatient for above History of Present Illness History of Present Illness Ms Michelle is an 84yo F w/ PMHx dementia, Diabetes-Type II, HTN, ESRD on HD on MWF who was brought here from home via EMS at the request of her daughter for worsening dyspnea upon exertion and confusion. Patient's SPO2 86-88% on room air upon arrival, 3L oxygen applied via nasal cannula. Patient currently denies any symptoms, denies pain. Respirations even and unlabored. Patient was due to have hemodialysis today but appointment rescheduled to tomorrow per EMS. Daughter notes shortness of breath and her mother stopping while ambulating with her cane to the restroom. S/p Covid vaccine in October 2020. Lives with her granddaughter and has home health aide who assist with patient's care. She has previously been admitted for blood loss anemia and she had EGD on 04/06/2020 with resolving gastritis. She has been on eliquis for left IJ DVT previously which was stopped over a year ago. Patient does not seem to comprehend the fact that due to the dialysis treatment she will need constant monitoring and patient also has had a history of nonadherence to treatment plans previously. Patient pleasantly demented, she does not seem to know she is in the hospital. WBC 5.9, Hb 6.6, platelets 245, NA 142, K4.5, BUN 42, creatinine 6.7, glucose 193, calcium 8.1, magnesium 2.3, LFTs within normal laboratory limits albumin 2.9, rapid COVID-19 negative Chest radiograph: Cardiomegaly. Diffuse bilateral reticular opacities. EKG appears to be irregular atrial arrhythmia possibly flutter or afib with rate approximately 84bpm and left axis deviation. No ST segment elevations or TWI. 05/10: Hb up to 7.5 posttransfusion little less short of breath today. She is pleasantly confused Discussed with nephrology she missed dialysis. Rate controlled A. flutter on civil transportation engineer, reviewed. Afebrile. Appearing less short of breath today. to dialysis again today. Discussed with daughter. Vitals/I&O Vitals/I&O: Vital Signs Date Time Temp Pulse Resp B/P (MAP) Pulse Ox O2 Delivery O2 Flow Rate FiO2 05/11/21 07:42 97.7 60 18 95 Nasal Cannula 3.0 97.7 05/11/21 06:00 154/66 (95) I & O 05/10/21 05/10/21 05/11/21 14:59 22:59 06:59 Intake Total 420 ml 400 ml Output Total 0 ml Balance 420 ml 400 ml Physical Exam General: Alert, Cooperative, No acute distress Heart: Other (Aflutter with variable conduction) Lungs: Wheezing Abdomen: Soft Extremities: No cyanosis, Other (left arm edema) Skin: No breakdown Labs Labs: Laboratory Tests Test 05/10/21 11:54 05/10/21 21:50 05/11/21 04:15 05/11/21 07:47 Glucose (Fingerstick) 135 mg/dL (70-99) 206 mg/dL (70-99) 112 mg/dL (70-99) Sodium Level 139 mmol/L (136-145) Potassium Level 4.4 mmol/L (3.5-5.1) Chloride Level 100 mmol/L (98-107) Carbon Dioxide Level 31 mmol/L (21-32) Anion Gap 8 (6-14) Blood Urea Nitrogen 36 mg/dL (7-20) Creatinine 5.8 mg/dL (0.6-1.0) Estimated GFR (Cockcroft-Gault) 8.4 Glucose Level 120 mg/dL (70-99) Calcium Level 7.0 mg/dL (8.5-10.1) Assessment and Plan Assessmemt and Plan Problems Medical Problems: (1) Anemia of chronic disease Status: Acute (2) Exertional dyspnea Status: Acute (3) New onset a-fib Status: Acute (4) Normocytic anemia Status: Acute (5) Symptomatic anemia Status: Acute Comment Review of Relevant I have reviewed the following items rose (where applicable) has been applied. Medications: Current Medications Medications (Trade) Dose Ordered Sig/Diana Route PRN Reason Start Time Stop Time Status Last Admin Dose Admin Metoprolol Succinate (Toprol Xl) 12.5 mg DAILY PO 05/10/21 13:00 05/10/21 19:59 Justifications for Admission Other Justification Hyperkalemia, end-stage renal disease CHARLIE CHAVEZ MD May 11, 2021 11:35
--- NOTE | 2021-05-11 12:41 | NUR ---
SS following up with discharge planning. SS reviewed pt chart and discussed with pt RN. Pt is currently requiring oxygen at three liters nasal canula. COVID19 negative. Pt has no home oxygen. Per daughter pt has caregiver with home instead but is agreeable to home healthcare with [facility], ; fax [phone], at discharge. Pt has outpatient hemodialysis at [facility], ; fax [phone], Friday, Friday, and Friday. SS will continue to follow for discharge planning. Addendum: 05/11/21 at 1542 by ANATOLIY WATKINS Referral phoned and faxed to [facility]. Probable need for oxygen at discharge. ABG completed. [phone]. SS will continue to follow for discharge planning.
--- NOTE | 2021-05-11 14:02 | PDOC ---
DATE OF SERVICE DATE: 05/11/21 TIME: 14:02 SUBJECTIVE ROS Seen during dialysis No complaints or concerns OBJECTIVE Vital Signs Vital Signs Date Time Temp Pulse Resp B/P (MAP) Pulse Ox O2 Delivery O2 Flow Rate FiO2 05/11/21 08:00 Nasal Cannula 3.0 05/11/21 07:42 97.7 60 18 95 97.7 05/11/21 06:00 154/66 (95) I & 0 Intake and Output 05/11/21 07:00 Intake Total 820 ml Output Total 0 ml Balance 820 ml Intake Oral 820 ml Output Urine Total 0 ml PHYSICAL EXAM Physical Exam General: No acute distress HEENT: Atraumatic, Mucous membr. moist/pink Neck Supple Lungs: Decreased at bases, Non Labored , On o2 by NC Heart: Aflutter with variable conduction Abdomen: Soft, NT, BS + Extremities: No cyanosis,left arm edema, No LE edema Skin: No rash Neuro: Normal speech, Sensation intact Psych/Mental Status: Dx of dementia No Alvarado, No CAV opr SP tenderness DIAGNOSIS/ASSESSMENT Assessment & Plan ESRD - On HD MWF; seen during dialysis, tolerating well. Continue as ordered. DwDRn Acute on chronic diastolic CH- cardiology managing Anemia: Hgb 6.5 POA, recd PRBC , Hgb > 7 this morning AFlutter with variable conduction: rate controlled HTN: controlled Hx of DM2 Dementia LUE edema: chronic? COMMENT/RELEVANT DATA Meds Current Medications Medications (Trade) Dose Ordered Sig/Diana Start Time Stop Time Status Last Admin Dose Admin Acetaminophen (Tylenol) 650 mg PRN Q6HRS PRN 05/09/21 18:30 Albumin Human 200 ml @ 200 mls/hr 1X PRN PRN 05/11/21 09:15 05/11/21 15:14 Dextrose (Dextrose 50%-Water Syringe) 12.5 gm PRN Q15MIN PRN 05/09/21 22:00 Diphenhydramine HCl (Benadryl) 25 mg 1X PRN PRN 05/10/21 11:30 05/11/21 11:29 DC Fentanyl Citrate (Fentanyl 2ml Vial) 25 mcg PRN Q3HRS PRN 05/09/21 18:30 Hydralazine HCl (Apresoline Inj) 10 mg PRN Q4HRS PRN 05/09/21 18:30 Hydralazine HCl (Apresoline) 50 mg BID 05/09/21 21:00 05/10/21 21:47 50 MG Info (PHARMACY MONITORING -- do not chart) 1 each PRN DAILY PRN 05/11/21 09:15 UNV Insulin Human Lispro (HumaLOG) 0-9 UNITS TIDWMEALS 05/10/21 08:00 Metoprolol Succinate (Toprol Xl) 12.5 mg DAILY 05/10/21 13:00 05/10/21 19:59 12.5 MG Olanzapine (ZyPREXA ZYDIS) 5 mg PRN BID PRN 05/09/21 18:30 Ondansetron HCl (Zofran) 4 mg PRN Q4HRS PRN 05/09/21 18:30 Pantoprazole Sodium (Protonix) 40 mg DAILYAC 05/10/21 07:30 05/11/21 06:44 40 MG Sodium Chloride 1,000 ml @ 400 mls/hr Q2H30M PRN 05/11/21 09:15 05/11/21 21:14 Tramadol HCl (Ultram) 50 mg PRN Q6HRS PRN 05/09/21 18:30 Ziprasidone (Geodon) 20 mg HS 05/09/21 21:00 05/10/21 21:46 20 MG Lab Laboratory Tests Test 05/10/21 21:50 05/11/21 04:15 05/11/21 07:47 Glucose (Fingerstick) 206 mg/dL (70-99) 112 mg/dL (70-99) Sodium Level 139 mmol/L (136-145) Potassium Level 4.4 mmol/L (3.5-5.1) Chloride Level 100 mmol/L (98-107) Carbon Dioxide Level 31 mmol/L (21-32) Anion Gap 8 (6-14) Blood Urea Nitrogen 36 mg/dL (7-20) Creatinine 5.8 mg/dL (0.6-1.0) Estimated GFR (Cockcroft-Gault) 8.4 Glucose Level 120 mg/dL (70-99) Calcium Level 7.0 mg/dL (8.5-10.1) Results All relevant outside records, renal labs, imaging studies, telemetry/EKG's were reviewed. Justicifation of Admission Dx: Justifications for Admission: Justification of Admission Dx: Yes Chronic Renal Failure: Electrolyte Abnormality SALVADOR KOWALSKI MD May 11, 2021 14:02
[2021-05-11 14:31] VITALS: BP 97/61
--- NOTE | 2021-05-11 15:00 | NUR ---
Attempted to perform Six Minute Walk on patient. Whenever she stood at the side of the bed on room air she was unable to walk. She said she felt dizzy and increased shortness of air. Spo2 on Pulse Ox dropped to 62% - obtained ABG after patient was back in her bed & she was able to recover on 3L of oxygen while she was resting.
[2021-05-11 15:20] LABS: BASE EXCESS ABG 5 mmol/L (-3-3); HCO3 ABG 30 mmol/L (21-28); PCO2 ABG 47 mmHg (35-46); SAT O2 ABG 78 % (92-99)
[2021-05-11 15:23] LABS: FIO2 ABG 21; PO2 ABG 40 mmHg (65-108)
[2021-05-11 19:05] VITALS: BP 105/56
[2021-05-11] MEDS: ZIPRASIDONE 20 MG CAPSULE PO SCH (21:04)
[2021-05-11 23:00] VITALS: BP 108/56
[2021-05-12 03:10] VITALS: BP 96/49
[2021-05-12 07:00] VITALS: BP 99/45
[2021-05-12] MEDS: INSULIN LISPRO 300 UNITS/3 ML VIAL. SQ SCH ×3 (08:00→17:00)
--- NOTE | 2021-05-12 08:07 | PDOC ---
[employer] PROGRESS NOTE Date of Service DOS: DATE: 05/12/21 TIME: 08:05 Chief Complaint Chief Complaint A/P: Acute hypoxic respiratory failure - likely diastolic CHF and pulmonary edema due to worsening anemia. Possibly patient has been losing weight and may need additional ultrafiltration and dry weight adjustment. No cough or recent hospital stays or sick contacts no clear pneumonia Acute on chronic anemia - s/p transfusion for symptomatic anemia. Check fecal occult End-stage renal disease on hemodialysis - MWF normally. Will consult nephrology for dialysis scheduling while inpatient Moderate protein calorie malnutrition - nepro with meals Dementia - on aricept, would hold this given her history of GI bleeding and new arrhythmia Acute atrial arrhythmia - does appear to be atrial flutter with variable c onduction. Would not anticoagulate given 2 admissions for GI bleeding in 2019 while anticoagulating a DVT Acute encephalopathy - noted by daughter to be more confused, could be metabolic due to anemia, but could be due to dementia HTN - cont home meds, prn hydralazine DM2 - sliding scale insulin FEN - Renal ada diet PPX - SCDs, PPI FULL CODE. discussed with daughter bedside, she will discuss possible DNR with her brother Dispo - inpatient for above History of Present Illness History of Present Illness Ms Michelle is an 84yo F w/ PMHx dementia, Diabetes-Type II, HTN, ESRD on HD on MWF who was brought here from home via EMS at the request of her daughter for worsening dyspnea upon exertion and confusion. Patient's SPO2 86-88% on room air upon arrival, 3L oxygen applied via nasal cannula. Patient currently denies any symptoms, denies pain. Respirations even and unlabored. Patient was due to have hemodialysis today but appointment rescheduled to tomorrow per EMS. Daughter notes shortness of breath and her mother stopping while ambulating with her cane to the restroom. S/p Covid vaccine in October 2020. Lives with her granddaughter and has home health aide who assist with patient's care. She has previously been admitted for blood loss anemia and she had EGD on 04/06/2020 with resolving gastritis. She has been on eliquis for left IJ DVT previously which was stopped over a year ago. Patient does not seem to comprehend the fact that due to the dialysis treatment she will need constant monitoring and patient also has had a history of nonadherence to treatment plans previously. Patient pleasantly demented, she does not seem to know she is in the hospital. WBC 5.9, Hb 6.6, platelets 245, NA 142, K4.5, BUN 42, creatinine 6.7, glucose 193, calcium 8.1, magnesium 2.3, LFTs within normal laboratory limits albumin 2.9, rapid COVID-19 negative Chest radiograph: Cardiomegaly. Diffuse bilateral reticular opacities. EKG appears to be irregular atrial arrhythmia possibly flutter or afib with rate approximately 84bpm and left axis deviation. No ST segment elevations or TWI. 05/10: Hb up to 7.5 posttransfusion little less short of breath today. She is pleasantly confused Discussed with nephrology she missed dialysis. Rate controlled A. flutter on tele Echo with mild aortic stenosis and pulmonary artery pressure 50 mmHg. 3L UF at dialysis 05/11: Afebrile. Appearing less short of breath today. to dialysis again today with only 1.8L UF tolerated. Discussed with daughter. ABG with pH 7.42 PCO2 47 PO2 40 on room air. Afebrile overnight still requiring 3 L nasal cannula O2 to maintain saturations greater than 92%. Wheezing today, but she has no complaints. CXR worse. Will get nebulizers, check procalcitonin. Vitals/I&O Vitals/I&O: Vital Signs Date Time Temp Pulse Resp B/P (MAP) Pulse Ox O2 Delivery O2 Flow Rate FiO2 05/12/21 03:10 98.1 87 20 96/49 (65) 100 Nasal Cannula 3.0 98.1 I & O 05/11/21 05/11/21 05/12/21 15:00 23:00 07:00 Intake Total 240 ml 300 ml 50 ml Balance 240 ml 300 ml 50 ml Physical Exam General: Alert, Cooperative, No acute distress Heart: Other (Aflutter with variable conduction) Lungs: Wheezing Abdomen: Soft Extremities: No cyanosis, Other (left arm edema) Skin: No breakdown Labs Labs: Laboratory Tests Test 05/11/21 15:00 05/11/21 16:50 05/12/21 07:56 O2 Saturation 78 % (92-99) Arterial Blood pH 7.42 (7.35-7.45) Arterial Blood pCO2 at Patient Temp 47 mmHg (35-46) Arterial Blood pO2 at Patient Temp 40 mmHg (65-108) Arterial Blood HCO3 30 mmol/L (21-28) Arterial Blood Base Excess 5 mmol/L (-3-3) FiO2 21 Glucose (Fingerstick) 162 mg/dL (70-99) 109 mg/dL (70-99) Assessment and Plan Assessmemt and Plan Problems Medical Problems: (1) Anemia of chronic disease Status: Acute (2) Exertional dyspnea Status: Acute (3) New onset a-fib Status: Acute (4) Normocytic anemia Status: Acute (5) Symptomatic anemia Status: Acute Comment Review of Relevant I have reviewed the following items rose (where applicable) has been applied. Justifications for Admission Other Justification Hyperkalemia, end-stage renal disease CHARLIE CHAVEZ MD May 12, 2021 08:07
[2021-05-12] MEDS: METOPROLOL SUCC 24HR ER 25 MG TAB.ER.24H. PO SCH (09:00)
[2021-05-12] MEDS: hydrALAZINE 25 MG TABLET PO SCH ×2 (09:00→21:00)
[2021-05-12] MEDS: PANTOPRAZOLE 40 MG TABLET.DR. PO SCH (09:14)
--- NOTE | 2021-05-12 09:32 | RAD ---
INDICATION: Reason: Hypoxia / Spl. Instructions: / History: COMPARISON: May 09, 2021 FINDINGS: Single view of chest obtained. Enlarged cardiomediastinal silhouette with calcific atherosclerosis. Blunting of the bilateral costop hrenic angles with patchy opacities at the lung bases. Interstitial opacities bilaterally. There is s ome nodular opacity seen within the right upper lung. IMPRESSION: * Enlarged cardiomediastinal silhouette with calcific atherosclerosis. Could be from cardiomegaly or pericardial effusion. * Blunting of bilateral costophrenic angles which can be seen with small pleural effusion with adjac ent airspace consolidation from atelectasis or infiltrate. Increased from prior * Mild interstitial opacities bilaterally from edema or infiltrate. Mildly increased from prior * Nodular opacity on the right upper lung which could be from nodular atelectasis or infiltrate but follow-up will be needed to ensure that this resolves to exclude a persistent pulmonary nodule. Electronically signed by: Carlos Conner MD (05/12/2021 9:30 AM) [id number]
[2021-05-12 11:00] VITALS: BP 108/48
--- NOTE | 2021-05-12 14:27 | PDOC ---
DATE OF SERVICE DATE: 05/12/21 TIME: 14:27 SUBJECTIVE ROS No complaints or concerns OBJECTIVE Vital Signs Vital Signs Date Time Temp Pulse Resp B/P (MAP) Pulse Ox O2 Delivery O2 Flow Rate FiO2 05/12/21 11:00 98.0 108 16 108/48 (68) 92 Nasal Cannula 2.0 98.0 I & 0 Intake and Output 05/12/21 07:00 Intake Total 590 ml Balance 590 ml Intake Oral 590 ml PHYSICAL EXAM Physical Exam General: No acute distress HEENT: Atraumatic, Mucous membr. moist/pink Neck Supple Lungs: Decreased at bases, Non Labored , On o2 by NC Heart: Aflutter with variable conduction Abdomen: Soft, NT, BS + Extremities: No cyanosis,left arm edema, No LE edema Skin: No rash Neuro: Normal speech, Sensation intact Psych/Mental Status: Dx of dementia No Alvarado, No CAV opr SP tenderness DIAGNOSIS/ASSESSMENT Assessment & Plan DIAGNOSIS/ASSESSMENT ESRD - On HD MWF; No indication today Acute on chronic diastolic CH- cardiology managing Anemia: Hgb 6.5 POA, recd PRBC , Hgb > 7 this morning AFlutter with variable conduction: rate controlled HTN: controlled Hx of DM2 Dementia LUE edema: chronic? COMMENT/RELEVANT DATA Meds Current Medications Medications (Trade) Dose Ordered Sig/Diana Start Time Stop Time Status Last Admin Dose Admin Acetaminophen (Tylenol) 650 mg PRN Q6HRS PRN 05/09/21 18:30 Albumin Human 200 ml @ 200 mls/hr 1X PRN PRN 05/11/21 09:15 05/11/21 15:14 DC Dextrose (Dextrose 50%-Water Syringe) 12.5 gm PRN Q15MIN PRN 05/09/21 22:00 Diphenhydramine HCl (Benadryl) 25 mg 1X PRN PRN 05/10/21 11:30 05/11/21 11:29 DC Fentanyl Citrate (Fentanyl 2ml Vial) 25 mcg PRN Q3HRS PRN 05/09/21 18:30 Hydralazine HCl (Apresoline Inj) 10 mg PRN Q4HRS PRN 05/09/21 18:30 Hydralazine HCl (Apresoline) 50 mg BID 05/09/21 21:00 05/10/21 21:47 50 MG Info (PHARMACY MONITORING -- do not chart) 1 each PRN DAILY PRN 05/11/21 09:15 UNV Insulin Human Lispro (HumaLOG) 0-9 UNITS TIDWMEALS 05/10/21 08:00 05/11/21 17:16 4 UNITS Metoprolol Succinate (Toprol Xl) 12.5 mg DAILY 05/10/21 13:00 05/10/21 19:59 12.5 MG Olanzapine (ZyPREXA ZYDIS) 5 mg PRN BID PRN 05/09/21 18:30 Ondansetron HCl (Zofran) 4 mg PRN Q4HRS PRN 05/09/21 18:30 Pantoprazole Sodium (Protonix) 40 mg DAILYAC 05/10/21 07:30 05/12/21 09:14 40 MG Sodium Chloride 1,000 ml @ 400 mls/hr Q2H30M PRN 05/11/21 09:15 05/11/21 21:14 DC Tramadol HCl (Ultram) 50 mg PRN Q6HRS PRN 05/09/21 18:30 Ziprasidone (Geodon) 20 mg HS 05/09/21 21:00 05/11/21 21:04 20 MG Lab Laboratory Tests Test 05/11/21 15:00 05/11/21 16:50 05/12/21 07:56 05/12/21 12:15 O2 Saturation 78 % (92-99) Arterial Blood pH 7.42 (7.35-7.45) Arterial Blood pCO2 at Patient Temp 47 mmHg (35-46) Arterial Blood pO2 at Patient Temp 40 mmHg (65-108) Arterial Blood HCO3 30 mmol/L (21-28) Arterial Blood Base Excess 5 mmol/L (-3-3) FiO2 21 Glucose (Fingerstick) 162 mg/dL (70-99) 109 mg/dL (70-99) 166 mg/dL (70-99) Results All relevant outside records, renal labs, imaging studies, telemetry/EKG's were reviewed. Justicifation of Admission Dx: Justifications for Admission: Justification of Admission Dx: Yes Chronic Renal Failure: Electrolyte Abnormality SALVADOR KOWALSKI MD May 12, 2021 14:27
[2021-05-12 14:32] VITALS: BP 98/55
--- NOTE | 2021-05-12 14:47 | PDOC ---
PROGRESS NOTES Date of Service: DATE: 05/12/21 TIME: 14:45 Subjective Subjective Slightly confused but denied any chest pain or shortness of breath Objective Objective Vital Signs Date Time Temp Pulse Resp B/P (MAP) Pulse Ox O2 Delivery O2 Flow Rate FiO2 05/12/21 14:32 96.9 87 20 98/55 (69) 96 Nasal Cannula 3.0 96.9 Intake and Output 05/12/21 07:00 Intake Total 590 ml Balance 590 ml Intake Oral 590 ml Physical Exam Abdomen: Soft Heart: Other (Aflutter with variable conduction) Extremities: No cyanosis, Other (left arm edema) General: Alert, Cooperative, No acute distress HEENT: Atraumatic, Mucous membr. moist/pink Lungs: Other (basilar cacckles) MUSCULOSKELETAL: Osteoarthritic changes both hands Neuro: Normal speech, Sensation intact Psych/Mental Status: Other (confused) Skin: No breakdown Assessment Assessment 1. Acute on chronic diastolic CHF: Better compensated 2. Anemia: Post transfusion. no obvious bleed 3. AFlutter with variable conduction: rate better controlled. She is poor candidate for long-term anticoagulation 4. HTN: controlled 5. HLP 6. Hx of DM2: no coverage 7. Dementia 8. LUE edema: chronic 9. ESRD: Continue fluid removal with hemodialysis per nephrology team 10. Mild troponin elevation: demand mediated with culprits above. EF and WM nml 11. Mild Plan Plan of Care Problems Medical Problems: (1) Anemia of chronic disease Status: Acute (2) Exertional dyspnea Status: Acute (3) New onset a-fib Status: Acute (4) Normocytic anemia Status: Acute (5) Symptomatic anemia Status: Acute Comment Review of Relevant I have reviewed the following items rose (where applicable) has been applied. Labs Laboratory Tests Test 05/11/21 15:00 05/11/21 16:50 05/12/21 07:56 05/12/21 12:15 O2 Saturation 78 % (92-99) Arterial Blood pH 7.42 (7.35-7.45) Arterial Blood pCO2 at Patient Temp 47 mmHg (35-46) Arterial Blood pO2 at Patient Temp 40 mmHg (65-108) Arterial Blood HCO3 30 mmol/L (21-28) Arterial Blood Base Excess 5 mmol/L (-3-3) FiO2 21 Glucose (Fingerstick) 162 mg/dL (70-99) 109 mg/dL (70-99) 166 mg/dL (70-99) Microbiology 05/09/21 Blood Culture - Preliminary, Resulted NO GROWTH AFTER 2 DAYS Vitals/I & O Vital Sign - Last 24 Hours 05/11/21 05/11/21 05/11/21 05/12/21 19:05 19:55 23:00 03:10 Temp 97.1 97.6 98.1 97.1 97.6 98.1 Pulse 86 109 87 Resp 24 18 20 B/P (MAP) 105/56 (72) 108/56 (73) 96/49 (65) Pulse Ox 97 99 100 O2 Delivery Nasal Cannula Nasal Cannula Nasal Cannula Nasal Cannula O2 Flow Rate 3.0 3.0 3.0 3.0 05/12/21 05/12/21 05/12/21 05/12/21 07:00 08:00 09:00 09:00 Temp 98.5 98.5 Pulse 71 71 71 Resp 16 B/P (MAP) 99/45 (63) 99/45 99/45 Pulse Ox 93 O2 Delivery Nasal Cannula Nasal Cannula O2 Flow Rate 3.0 3.0 05/12/21 05/12/21 11:00 14:32 Temp 98.0 96.9 98.0 96.9 Pulse 108 87 Resp 16 20 B/P (MAP) 108/48 (68) 98/55 (69) Pulse Ox 92 96 O2 Delivery Nasal Cannula Nasal Cannula O2 Flow Rate 2.0 3.0 Intake and Output 05/11/21 05/11/21 05/12/21 15:00 23:00 07:00 Intake Total 240 ml 300 ml 50 ml Balance 240 ml 300 ml 50 ml GAYATHRI BALDWIN MD May 12, 2021 14:47
[2021-05-12] MEDS ORDERED: ALBUTEROL SULFATE 2.5 MG/3 ML NEBU. NEB PRN (15:30)
[2021-05-12] MEDS: IPRATRPIUM/ALBUTEROL 0.5/2.5MG 3 ML NEBU. NEB SCH ×2 (15:53→20:37)
[2021-05-12 19:25] VITALS: BP 109/53
[2021-05-12 19:33] LABS: HEMATOCRIT 22.7 % (36.0-47.0); HEMOGLOBIN 7.4 g/dL (12.0-15.5); RED BLOOD COUNT 2.55 x10^6/uL (3.50-5.40); RED CELL DISTRIBUTION WIDTH 18.2 % (11.5-14.5); WHITE BLOOD COUNT 6.3 x10^3/uL (4.0-11.0)
[2021-05-12] MEDS: BUDESONIDE 0.5 MG/2 ML NEBU. NEB SCH (20:37)
[2021-05-12] MEDS: ZIPRASIDONE 20 MG CAPSULE PO SCH (21:00)
[2021-05-12 23:30] VITALS: BP 109/50
[2021-05-13 03:10] VITALS: BP 101/49
[2021-05-13 07:00] VITALS: BP 95/61
[2021-05-13] MEDS: IPRATRPIUM/ALBUTEROL 0.5/2.5MG 3 ML NEBU. NEB SCH ×4 (07:20→20:13)
[2021-05-13] MEDS: BUDESONIDE 0.5 MG/2 ML NEBU. NEB SCH ×2 (07:21→20:13)
[2021-05-13] MEDS: PANTOPRAZOLE 40 MG TABLET.DR. PO SCH (07:30)
--- NOTE | 2021-05-13 07:49 | PDOC ---
[employer] PROGRESS NOTE Date of Service DOS: DATE: 05/13/21 TIME: 07:48 Chief Complaint Chief Complaint A/P: Acute hypoxic respiratory failure - likely diastolic CHF and pulmonary edema due to worsening anemia and bronchitis with pneumonia. Possibly patient has been losing weight and may need additional ultrafiltration and dry weight adjustment. No cough or recent hospital stays or sick contacts Acute on chronic anemia - s/p transfusion for symptomatic anemia. Check fecal occult New onset atrial fibrillation - does appear to be atrial flutter with variable conduction. Would not anticoagulate given 2 admissions for GI bleeding in 2019 while anticoagulating a DVT End-stage renal disease on hemodialysis - MWF normally. Will consult nephrology for dialysis scheduling while inpatient Moderate protein calorie malnutrition - nepro with meals Dementia - on aricept, would hold this given her history of GI bleeding and new arrhythmia Acute encephalopathy - noted by daughter to be more confused, could be metabolic due to anemia, but could be due to dementia HTN - cont home meds, prn hydralazine DM2 - sliding scale insulin FEN - Renal ada diet PPX - SCDs, PPI FULL CODE. discussed with daughter bedside, she will discuss possible DNR with her brother Dispo - inpatient for above History of Present Illness History of Present Illness Ms Michelle is an 84yo F w/ PMHx dementia, Diabetes-Type II, HTN, ESRD on HD on MWF who was brought here from home via EMS at the request of her daughter for worsening dyspnea upon exertion and confusion. Patient's SPO2 86-88% on room air upon arrival, 3L oxygen applied via nasal cannula. Patient currently denies any symptoms, denies pain. Respirations even and unlabored. Patient was due to have hemodialysis today but appointment rescheduled to tomorrow per EMS. Daughter notes shortness of breath and her mother stopping while ambulating with her cane to the restroom. S/p Covid vaccine in October 2020. Lives with her granddaughter and has home health aide who assist with patient's care. She has previously been admitted for blood loss anemia and she had EGD on 04/06/2020 with resolving gastritis. She has been on eliquis for left IJ DVT previously which was stopped over a year ago. Patient does not seem to comprehend the fact that due to the dialysis treatment she will need constant monitoring and patient also has had a history of nonadherence to treatment plans previously. Patient pleasantly demented, she does not seem to know she is in the hospital. WBC 5.9, Hb 6.6, platelets 245, NA 142, K4.5, BUN 42, creatinine 6.7, glucose 193, calcium 8.1, magnesium 2.3, LFTs within normal laboratory limits albumin 2.9, rapid COVID-19 negative Chest radiograph: Cardiomegaly. Diffuse bilateral reticular opacities. EKG appears to be irregular atrial arrhythmia possibly flutter or afib with rate approximately 84bpm and left axis deviation. No ST segment elevations or TWI. 05/10: Hb up to 7.5 posttransfusion little less short of breath today. She is pleasantly confused Discussed with nephrology she missed dialysis. Rate controlled A. flutter on tele Echo with mild aortic stenosis and pulmonary artery pressure 50 mmHg. 3L UF at dialysis 05/11: Afebrile. Appearing less short of breath today. to dialysis again today with only 1.8L UF tolerated. Discussed with daughter. ABG with pH 7.42 PCO2 47 PO2 40 on room air. 05/12: Afebrile overnight still requiring 3 L nasal cannula O2 to maintain sat urations greater than 92%. Wheezing today, but she has no complaints. CXR worse. Will get nebulizers, Afebrile. Still requiring 3 L nasal cannula to maintain O2 saturation 90%. Chest radiograph clearly showing developing pneumonia. Antibiotics added. She has no real complaints but still very hypoxic with movement. Still in A. fib on telemetry. Discussed with cardiology high risk for anticoagulation. Vitals/I&O Vitals/I&O: Vital Signs Date Time Temp Pulse Resp B/P (MAP) Pulse Ox O2 Delivery O2 Flow Rate FiO2 05/13/21 07:23 98 Nasal Cannula 3.0 05/13/21 03:10 97.5 94 20 101/49 (66) 97.5 I & O 05/12/21 05/12/21 05/13/21 15:00 23:00 07:00 Intake Total 360 ml 180 ml 420 ml Output Total 0 ml Balance 360 ml 180 ml 420 ml Physical Exam General: Alert, Cooperative, No acute distress Heart: Other (Aflutter with variable conduction) Lungs: Wheezing Abdomen: Soft Extremities: No cyanosis, Other (left arm edema) Skin: No breakdown Labs Labs: Laboratory Tests Test 05/12/21 07:56 05/12/21 12:15 05/12/21 17:11 05/12/21 18:00 Glucose (Fingerstick) 109 mg/dL (70-99) 166 mg/dL (70-99) 136 mg/dL (70-99) White Blood Count 6.3 x10^3/uL (4.0-11.0) Red Blood Count 2.55 x10^6/uL (3.50-5.40) Hemoglobin 7.4 g/dL (12.0-15.5) Hematocrit 22.7 % (36.0-47.0) Mean Corpuscular Volume 89 fL (79-100) Mean Corpuscular Hemoglobin 29 pg (25-35) Mean Corpuscular Hemoglobin Concent 33 g/dL (31-37) Red Cell Distribution Width 18.2 % (11.5-14.5) Platelet Count 224 x10^3/uL (140-400) Procalcitonin 0.62 ng/mL (0.00-0.10) Test 05/12/21 20:32 Glucose (Fingerstick) 166 mg/dL (70-99) Assessment and Plan Assessmemt and Plan Problems Medical Problems: (1) Anemia of chronic disease Status: Acute (2) Exertional dyspnea Status: Acute (3) New onset a-fib Status: Acute (4) Normocytic anemia Status: Acute (5) Symptomatic anemia Status: Acute Comment Review of Relevant I have reviewed the following items rose (where applicable) has been applied. Medications: Current Medications Medications (Trade) Dose Ordered Sig/Diana Route PRN Reason Start Time Stop Time Status Last Admin Dose Admin Albuterol/ Ipratropium (Duoneb) 3 ml RTQID [facility] 05/12/21 16:00 05/13/21 07:20 Budesonide (Pulmicort) 0.5 mg RTBID [facility] 05/12/21 20:00 05/13/21 07:21 Justifications for Admission Other Justification Hyperkalemia, end-stage renal disease CHARLIE CHAVEZ MD May 13, 2021 07:48
[2021-05-13] MEDS: INSULIN LISPRO 300 UNITS/3 ML VIAL. SQ SCH ×3 (08:00→17:00)
[2021-05-13] MEDS: METOPROLOL SUCC 24HR ER 25 MG TAB.ER.24H. PO SCH (09:00)
[2021-05-13] MEDS: hydrALAZINE 25 MG TABLET PO SCH ×2 (09:00→20:41)
[2021-05-13 11:00] VITALS: BP 104/55
[2021-05-13] MEDS ORDERED: CEFEPIME HCL IV Push 1 GM VIAL. IVP SCH (12:00)
--- NOTE | 2021-05-13 12:59 | PDOC ---
PROGRESS NOTES Date of Service: DATE: 05/13/21 TIME: 12:57 Subjective Subjective c/o shortness of breath Objective Objective Vital Signs Date Time Temp Pulse Resp B/P (MAP) Pulse Ox O2 Delivery O2 Flow Rate FiO2 05/13/21 11:06 98 Nasal Cannula 3.0 05/13/21 11:00 98.7 106 18 104/55 (71) 98.7 Intake and Output 05/13/21 07:00 Intake Total 960 ml Output Total 0 ml Balance 960 ml Intake Oral 960 ml Output Urine Total 0 ml Physical Exam Abdomen: Soft Heart: Other (Aflutter with variable conduction) Extremities: No cyanosis, Other (left arm edema) General: Alert, Cooperative, No acute distress HEENT: Atraumatic, Mucous membr. moist/pink Lungs: Other (basilar cacckles) MUSCULOSKELETAL: Osteoarthritic changes both hands Neuro: Normal speech, Sensation intact Psych/Mental Status: Other (confused) Skin: No breakdown Assessment Assessment 1. Acute on chronic diastolic CHF: Better compensated 2. Anemia: Post transfusion. no obvious bleed 3. AFlutter/fibrillation: rate better controlled. She is poor candidate for long-term anticoagulation 4. HTN: controlled 5. HLP 6. Hx of DM2: no coverage 7. Dementia 8. LUE edema: chronic 9. ESRD: Continue fluid removal with hemodialysis per nephrology team 10. Mild troponin elevation: demand mediated with culprits above. EF and WM nml 11. Mild 12. Pneumonia: Started on antibiotics Plan Plan of Care Problems Medical Problems: (1) Anemia of chronic disease Status: Acute (2) Exertional dyspnea Status: Acute (3) New onset a-fib Status: Acute (4) Normocytic anemia Status: Acute (5) Symptomatic anemia Status: Acute Comment Review of Relevant I have reviewed the following items rose (where applicable) has been applied. Labs Laboratory Tests Test 05/12/21 17:11 05/12/21 18:00 05/12/21 20:32 05/13/21 08:06 Glucose (Fingerstick) 136 mg/dL (70-99) 166 mg/dL (70-99) 108 mg/dL (70-99) White Blood Count 6.3 x10^3/uL (4.0-11.0) Red Blood Count 2.55 x10^6/uL (3.50-5.40) Hemoglobin 7.4 g/dL (12.0-15.5) Hematocrit 22.7 % (36.0-47.0) Mean Corpuscular Volume 89 fL (79-100) Mean Corpuscular Hemoglobin 29 pg (25-35) Mean Corpuscular Hemoglobin Concent 33 g/dL (31-37) Red Cell Distribution Width 18.2 % (11.5-14.5) Platelet Count 224 x10^3/uL (140-400) Procalcitonin 0.62 ng/mL (0.00-0.10) Test 05/13/21 11:46 Glucose (Fingerstick) 120 mg/dL (70-99) Microbiology 05/09/21 Blood Culture - Preliminary, Resulted NO GROWTH AFTER 3 DAYS Medications Current Medications Albuterol Sulfate (Ventolin Neb Soln) 2.5 mg PRN Q4HRS PRN NEB SHORTNESS OF BREATH; Start 05/12/21 at 15:30 Albuterol/ Ipratropium (Duoneb) 3 ml RTQID NEB Last administered on 05/13/21at 11:05; Start 05/12/21 at 16:00 Budesonide (Pulmicort) 0.5 mg RTBID NEB Last administered on 05/13/21at 07:21; Start 05/12/21 at 20:00 Cefdinir (Omnicef) 300 mg BID PO ; Start 05/13/21 at 21:00; Stop 05/13/21 at 12:02; Status DC Cefdinir (Omnicef) 300 mg QODAY PO ; Start 05/13/21 at 13:00 Cefepime HCl (Maxipime) 1 gm Q24H IVP ; Start 05/13/21 at 12:00; Stop 05/13/21 at 11:54; Status DC Doxycycline Hyclate (Vibra-Tab) 100 mg BID PO ; Start 05/13/21 at 12:00 Vitals/I & O Vital Sign - Last 24 Hours 05/12/21 05/12/21 05/12/21 05/12/21 14:32 15:53 19:25 20:00 Temp 96.9 97.3 96.9 97.3 Pulse 87 85 Resp 20 20 B/P (MAP) 98/55 (69) 109/53 (71) Pulse Ox 96 100 94 O2 Delivery Nasal Cannula Nasal Cannula Nasal Cannula Nasal Cannula O2 Flow Rate 3.0 3.0 3.0 3.0 05/12/21 05/12/21 05/13/21 05/13/21 20:39 23:30 03:10 07:00 Temp 97.7 97.5 98.6 97.7 97.5 98.6 Pulse 95 94 106 Resp 21 20 16 B/P (MAP) 109/50 (69) 101/49 (66) 95/61 (72) Pulse Ox 100 95 97 99 O2 Delivery Nasal Cannula Nasal Cannula Nasal Cannula Nasal Cannula O2 Flow Rate 3.0 3.0 3.0 3.0 05/13/21 05/13/21 05/13/21 05/13/21 07:21 07:23 09:00 09:00 Pulse 106 106 B/P (MAP) 95/61 95/61 Pulse Ox 98 98 O2 Delivery Nasal Cannula Nasal Cannula O2 Flow Rate 3.0 3.0 05/13/21 05/13/21 11:00 11:06 Temp 98.7 98.7 Pulse 106 Resp 18 B/P (MAP) 104/55 (71) Pulse Ox 95 98 O2 Delivery Nasal Cannula Nasal Cannula O2 Flow Rate 3.0 3.0 Intake and Output 05/12/21 05/12/21 05/13/21 15:00 23:00 07:00 Intake Total 360 ml 180 ml 420 ml Output Total 0 ml Balance 360 ml 180 ml 420 ml GAYATHRI BALDWIN MD May 13, 2021 12:59
[2021-05-13] MEDS: DOXYCYCLINE HYCLATE 100 MG TABLET PO SCH ×2 (13:09→20:41)
[2021-05-13] MEDS: CEFDINIR 300 MG CAPSULE PO SCH (13:09)
[2021-05-13 15:00] VITALS: BP 98/55
--- NOTE | 2021-05-13 16:32 | PDOC ---
DATE OF SERVICE DATE: 05/13/21 TIME: 16:30 SUBJECTIVE ROS Afebrile Remains On o2 by [place] OBJECTIVE Vital Signs Vital Signs Date Time Temp Pulse Resp B/P (MAP) Pulse Ox O2 Delivery O2 Flow Rate FiO2 05/13/21 15:59 98 Nasal Cannula 3.0 05/13/21 15:00 97.6 93 18 98/55 (69) 97.6 I & 0 Intake and Output 05/13/21 07:00 Intake Total 960 ml Output Total 0 ml Balance 960 ml Intake Oral 960 ml Output Urine Total 0 ml PHYSICAL EXAM Physical Exam General: No acute distress HEENT: Atraumatic, Mucous membr. moist/pink Neck Supple Lungs: Decreased at bases, Non Labored , On o2 by [place] Heart: Aflutter with variable conduction Abdomen: Soft, NT, BS + Extremities: No cyanosis,left arm edema, No LE edema Skin: No rash Neuro: Normal speech, Sensation intact Psych/Mental Status: Dx of dementia No Alvarado, No CAV opr SP tenderness DIAGNOSIS/ASSESSMENT Assessment & Plan ESRD - On HD MWF; No indication today Ac Resp failure- on o2 by NC - Acute on chronic diastolic CH- cardiology managing Anemia: Hgb 6.5 POA, recd PRBC , Hgb > 7 AFlutter with variable conduction: rate controlled HTN: controlled Hx of DM2 Dementia LUE edema: chronic? COMMENT/RELEVANT DATA Meds Current Medications Medications (Trade) Dose Ordered Sig/Diana Start Time Stop Time Status Last Admin Dose Admin Acetaminophen (Tylenol) 650 mg PRN Q6HRS PRN 05/09/21 18:30 Albumin Human 200 ml @ 200 mls/hr 1X PRN PRN 05/11/21 09:15 05/11/21 15:14 DC Albuterol Sulfate (Ventolin Neb Soln) 2.5 mg PRN Q4HRS PRN 05/12/21 15:30 Albuterol/ Ipratropium (Duoneb) 3 ml RTQID 05/12/21 16:00 05/13/21 15:59 3 ML Budesonide (Pulmicort) 0.5 mg RTBID 05/12/21 20:00 05/13/21 07:21 0.5 MG Cefdinir (Omnicef) 300 mg QODAY 05/13/21 13:00 05/13/21 13:09 300 MG Cefepime HCl (Maxipime) 1 gm Q24H 05/13/21 12:00 05/13/21 11:54 DC Dextrose (Dextrose 50%-Water Syringe) 12.5 gm PRN Q15MIN PRN 05/09/21 22:00 Diphenhydramine HCl (Benadryl) 25 mg 1X PRN PRN 05/10/21 11:30 05/11/21 11:29 DC Doxycycline Hyclate (Vibra-Tab) 100 mg BID 05/13/21 12:00 05/13/21 13:09 100 MG Fentanyl Citrate (Fentanyl 2ml Vial) 25 mcg PRN Q3HRS PRN 05/09/21 18:30 Hydralazine HCl (Apresoline Inj) 10 mg PRN Q4HRS PRN 05/09/21 18:30 Hydralazine HCl (Apresoline) 50 mg BID 05/09/21 21:00 05/10/21 21:47 50 MG Info (PHARMACY MONITORING -- do not chart) 1 each PRN DAILY PRN 05/11/21 09:15 UNV Insulin Human Lispro (HumaLOG) 0-9 UNITS TIDWMEALS 05/10/21 08:00 05/11/21 17:16 4 UNITS Metoprolol Succinate (Toprol Xl) 12.5 mg DAILY 05/10/21 13:00 05/10/21 19:59 12.5 MG Olanzapine (ZyPREXA ZYDIS) 5 mg PRN BID PRN 05/09/21 18:30 05/13/21 01:00 5 MG Ondansetron HCl (Zofran) 4 mg PRN Q4HRS PRN 05/09/21 18:30 Pantoprazole Sodium (Protonix) 40 mg DAILYAC 05/10/21 07:30 05/12/21 09:14 40 MG Sodium Chloride 1,000 ml @ 400 mls/hr Q2H30M PRN 05/11/21 09:15 05/11/21 21:14 DC Tramadol HCl (Ultram) 50 mg PRN Q6HRS PRN 05/09/21 18:30 Ziprasidone (Geodon) 20 mg HS 05/09/21 21:00 05/11/21 21:04 20 MG Lab Laboratory Tests Test 05/12/21 17:11 05/12/21 18:00 05/12/21 20:32 05/13/21 08:06 Glucose (Fingerstick) 136 mg/dL (70-99) 166 mg/dL (70-99) 108 mg/dL (70-99) White Blood Count 6.3 x10^3/uL (4.0-11.0) Red Blood Count 2.55 x10^6/uL (3.50-5.40) Hemoglobin 7.4 g/dL (12.0-15.5) Hematocrit 22.7 % (36.0-47.0) Mean Corpuscular Volume 89 fL (79-100) Mean Corpuscular Hemoglobin 29 pg (25-35) Mean Corpuscular Hemoglobin Concent 33 g/dL (31-37) Red Cell Distribution Width 18.2 % (11.5-14.5) Platelet Count 224 x10^3/uL (140-400) Procalcitonin 0.62 ng/mL (0.00-0.10) Test 05/13/21 11:46 Glucose (Fingerstick) 120 mg/dL (70-99) Results All relevant outside records, renal labs, imaging studies, telemetry/EKG's were reviewed. Justicifation of Admission Dx: Justifications for Admission: Justification of Admission Dx: Yes Chronic Renal Failure: Electrolyte Abnormality SALVADOR KOWALSKI MD May 13, 2021 16:32
[2021-05-13 19:30] VITALS: BP 119/50
[2021-05-13] MEDS: ZIPRASIDONE 20 MG CAPSULE PO SCH (20:41)
[2021-05-13] MEDS ORDERED: CEFDINIR 300 MG CAPSULE PO SCH (21:00)
[2021-05-13 22:40] VITALS: BP 86/41
[2021-05-14 02:56] VITALS: BP 107/59
[2021-05-14 06:08] LABS: CALCIUM 6.7 mg/dL (8.5-10.1); GFR 6.8; POTASSIUM 5.5 mmol/L (3.5-5.1)
[2021-05-14 07:00] VITALS: BP 100/44
[2021-05-14] MEDS: IPRATRPIUM/ALBUTEROL 0.5/2.5MG 3 ML NEBU. NEB SCH ×4 (07:42→20:00)
[2021-05-14] MEDS: BUDESONIDE 0.5 MG/2 ML NEBU. NEB SCH ×2 (07:42→20:00)
[2021-05-14] MEDS: INSULIN LISPRO 300 UNITS/3 ML VIAL. SQ SCH ×3 (08:00→17:25)
[2021-05-14] MEDS: hydrALAZINE 25 MG TABLET PO SCH ×2 (08:14→21:00)
[2021-05-14] MEDS: PANTOPRAZOLE 40 MG TABLET.DR. PO SCH (08:15)
[2021-05-14] MEDS: DOXYCYCLINE HYCLATE 100 MG TABLET PO SCH ×2 (08:15→21:44)
[2021-05-14] MEDS ORDERED: IV NORMAL SALINE 1000ML BAG 1,000 ML IV PRN ×2 (08:45)
[2021-05-14] MEDS ORDERED: DIALYSIS PATIENT. MC PRN ×2 (08:45)
[2021-05-14] MEDS ORDERED: ALBUMIN HUMAN 25% 200 ML IV PRN (08:45)
--- NOTE | 2021-05-14 11:40 | NUR ---
SS following up with discharge planning. SS reviewed pt chart and discussed with pt RN. Pt is currently requiring oxygen at two liters nasal canula. COVID19 negative. Pt has no home oxygen. Pt has caregiver with [facility] but is agreeable to home healthcare with [facility], ; fax [phone], at discharge. Pt accepted on services with [facility]. Pt has outpatient hemodialysis at [facility], ; fax [phone], Friday, Friday, and Friday. Pt will need new ABG prior to discharge if oxygen is needed for home. SS will continue to follow for discharge planning.
--- NOTE | 2021-05-14 12:27 | PDOC ---
KT REYES [facility] NON MEDICAL 05/14/21 1226: CARDIO Progress Notes Date and Time Date of Service 05/14/21 Time of Evaluation 1220 Subjective Subjective: No Chest Pain, No shortness of breath, No Palpitations Vitals Vitals Vital Signs Date Time Temp Pulse Resp B/P (MAP) Pulse Ox O2 Delivery O2 Flow Rate FiO2 05/14/21 08:14 104 100/44 05/14/21 08:00 Nasal Cannula 2.0 05/14/21 07:42 98 05/14/21 07:00 97.7 20 97.7 Weight Weight [ ] Input and Output Intake and Output Intake and Output 05/14/21 07:00 Intake Total 580 ml Output Total 150 ml Balance 430 ml Intake Oral 580 ml Output Urine Total 150 ml Laboratory Labs Laboratory Tests Test 05/13/21 17:21 05/13/21 21:05 05/14/21 04:00 05/14/21 08:13 Glucose (Fingerstick) 105 mg/dL (70-99) 179 mg/dL (70-99) 106 mg/dL (70-99) Sodium Level 135 mmol/L (136-145) Potassium Level 5.5 mmol/L (3.5-5.1) Chloride Level 97 mmol/L (98-107) Carbon Dioxide Level 28 mmol/L (21-32) Anion Gap 10 (6-14) Blood Urea Nitrogen 62 mg/dL (7-20) Creatinine 7.0 mg/dL (0.6-1.0) Estimated GFR (Cockcroft-Gault) 6.8 Glucose Level 136 mg/dL (70-99) Calcium Level 6.7 mg/dL (8.5-10.1) Microbiology Micro Microbiology 05/09/21 Blood Culture - Preliminary, Resulted NO GROWTH AFTER 4 DAYS Physical Exam HEENT: Neck Supple W Full Motion Chest: Symmetric LUNGS: Clear to Auscultation Heart: RRR Abdomen: Soft N/T Extremities: No Calf Tenderness Neurology: alert, follow commands, confused Assessment Assessment 1. Acute on chronic diastolic CHF: Better compensated 2. Anemia: Post transfusion. no obvious bleed 3. AFlutter/fibrillation: converted back to SR. 4. HTN: controlled 5. HLP 6. Hx of DM2: no coverage 7. Dementia 8. LUE edema: chronic 9. ESRD on HD 10. Mild troponin elevation: demand mediated with culprits above. EF and WM nml 11. Mild 12. Pneumonia: antibiotic therapy Recommendations Continue metoprolol for rate control ASA therapy She is poor candidate for long-term anticoagulation Fluid offloading via HD as per nephrology team Justicifation of Admission Dx: Justifications for Admission: Justification of Admission Dx: Yes Chronic Renal Failure: Electrolyte Abnormality GAYATHRI BALDWIN MD 05/14/211943: CARDIO Progress Notes Assessment Assessment Patient seen and examined. Agree with BODY AND FRAME TECHNICIAN's assessment and plan. PAF presently maintaining SR She is poor usp AC candidate Ac on chr diast HF better compensated Continue fluid removal with HD per nephrology team Slight trop elevation prob demand ischemia KT REYES APRN May 14, 2021 12:26 GAYATHRI BALDWIN MD May 14, 2021 19:44
[2021-05-14] MEDS ORDERED: CEFD300C PO (12:41)
[2021-05-14] MEDS ORDERED: DOXY100T PO (12:41)
--- NOTE | 2021-05-14 12:42 | SNU/HH DC ---
DISCHARGE WITH HOME HEALTH DISCHARGE INFORMATION: Discharge Date: May 14, 2021 Final Diagnosis: Problems Medical Problems: (1) Anemia of chronic disease Status: Acute (2) Exertional dyspnea Status: Acute (3) New onset a-fib Status: Acute (4) Normocytic anemia Status: Acute (5) Symptomatic anemia Status: Acute Condition on Discharge: Stable CODE STATUS: Code Status: Full HOME HEALTH: Face to Face: I certify this patient is under my care and that I, or a nurse practitioner or physician's customer marketing assistant working with me, had a face to face encounter that meets the physician face to face encounter requirements with this patient on []. Mcfp For: Assess & Educate Safety, Assess/Skilled Observatio RN For Eval/Treatment: Yes Physical Therapy For: Evalulation/Treatment Occupational Therapy For: Evaluation/Treatment Pt Meets Homebound Status: Poor coordination w/ amb., Unsteady balance w/ amb,, Extreme weakness w/ amb. POST DISCHARGE ORDERS: Activity Instructions for Disc: Activity as tolerated Weight Bearing Status after Di: As tolerated DIET AFTER DISCHARGE: Renal CHECKS AFTER DISCHARGE: Checks after discharge: Check blood press - daily, Weigh Yourself Daily FOLLOW-UP: DC TO SNF LABS: CMP, CBC, phosphorus levels TREATMENT/EQUIPMENT ORDERS: Adaptive Equipment Issued: None CERTIFICATION STATEMENT: Certification Statement: Certification Statement: Based on the above finding, I certify that this patient is confined to the home and needs intermittent long-term care, physical therapy and/or speech therapy, or continues to need occupational therapy.~ This patient is under my care, and I have initiated the establishment of the plan of care.~ This patient will be followed by myself or a community physician who will periodically review the plan of care. Home Meds Reported Medications Ferrous Sulfate (IRON) 325 Mg Tablet, 1 TAB PO DAILY for anemia for 30 Days, #30 TAB 0 Refills 05/14/20 Omeprazole (OMEPRAZOLE) 40 Mg Capsule.dr, 40 MG PO HS for GERD 05/12/20 Ziprasidone Hcl (ZIPRASIDONE HCL) 40 Mg Capsule, 20 MG PO HS for bipolar 05/12/20 Folic Acid/Vitamin B Comp W-C (BRUCE-MALU TABLET) 0.8 Mg Tablet, 1 TAB PO DAILY08 for FOR DIALYSIS PT for 30 Days, #30 TAB 0 Refills 03/23/20 Donepezil Hcl (DONEPEZIL HCL) 5 Mg Tablet, 10 MG PO QHS for 03/03/20 Hydralazine Hcl (HYDRALAZINE HCL) 25 Mg Tablet, 2 TAB PO BID for hypertension, #90 TAB 5 Refills 08/04/19 CHARLIE NESS MD May 14, 2021 12:42
--- NOTE | 2021-05-14 12:48 | PDOC3 ---
[facility]-Discharge Summary Date of Admission: Date of Admission: May 09, 2021 Date of Discharge: Date of Discharge: May 14, 2021 Admission Diagnosis: Problems: (1) ESRD (end stage renal disease) (2) New onset a-fib (3) Exertional dyspnea Discharge Diagnosis: Discharge Diagnosis: Same Consults: Consults: Nephro, cardiology, pulmonary Hospital Course: Hospital Course: Chief Complaint Chief Complaint A/P: Acute hypoxic respiratory failure - likely diastolic CHF and pulmonary edema due to worsening anemia and bronchitis with pneumonia. Possibly patient has been losing weight and may need additional ultrafiltration and dry weight adjustment. No cough or recent hospital stays or sick contacts Acute on chronic anemia - s/p transfusion for symptomatic anemia. Check fecal occult New onset atrial fibrillation - does appear to be atrial flutter with variable conduction. Would not anticoagulate given 2 admissions for GI bleeding in 2019 while anticoagulating a DVT End-stage renal disease on hemodialysis - MWF normally. Will consult nephrology for dialysis scheduling while inpatient Moderate protein calorie malnutrition - nepro with meals Dementia - on aricept, would hold this given her history of GI bleeding and new arrhythmia Acute encephalopathy - noted by daughter to be more confused, could be metabolic due to anemia, but could be due to dementia HTN - cont home meds, prn hydralazine DM2 - sliding scale insulin FEN - Renal ada diet PPX - SCDs, PPI FULL CODE. discussed with daughter bedside, she will discuss possible DNR with her brother Dispo - inpatient for above History of Present Illness History of Present Illness Ms Michelle is an 84yo F w/ PMHx dementia, Diabetes-Type II, HTN, ESRD on HD on MWF who was brought here from home via EMS at the request of her daughter for worsening dyspnea upon exertion and confusion. Patient's SPO2 86-88% on room air upon arrival, 3L oxygen applied via nasal cannula. Patient currently denies any symptoms, denies pain. Respirations even and unlabored. Patient was due to have hemodialysis today but appointment rescheduled to tomorrow per EMS. Daughter notes shortness of breath and her mother stopping while ambulating with her cane to the restroom. S/p Covid vaccine in October 2020. Lives with her granddaughter and has home he alth aide who assist with patient's care. She has previously been admitted for blood loss anemia and she had EGD on 04/06/2020 with resolving gastritis. She has been on eliquis for left IJ DVT previously which was stopped over a year ago. Patient does not seem to comprehend the fact that due to the dialysis treatment she will need constant monitoring and patient also has had a history of nonadherence to treatment plans previously. Patient pleasantly demented, she does not seem to know she is in the hospital. WBC 5.9, Hb 6.6, platelets 245, NA 142, K4.5, BUN 42, creatinine 6.7, glucose 193, calcium 8.1, magnesium 2.3, LFTs within normal laboratory limits albumin 2.9, rapid COVID-19 negative Chest radiograph: Cardiomegaly. Diffuse bilateral reticular opacities. EKG appears to be irregular atrial arrhythmia possibly flutter or afib with rate approximately 84bpm and left axis deviation. No ST segment elevations or TWI. 05/10: Hb up to 7.5 posttransfusion little less short of breath today. She is pleasantly confused Discussed with nephrology she missed dialysis. Rate controlled A. flutter on tele Echo with mild aortic stenosis and pulmonary artery pressure 50 mmHg. 3L UF at dialysis 05/11: Afebrile. Appearing less short of breath today. to dialysis again today with only 1.8L UF tolerated. Discussed with daughter. ABG with pH 7.42 PCO2 47 PO2 40 on room air. 05/12: Afebrile overnight still requiring 3 L nasal cannula O2 to maintain saturations greater than 92%. Wheezing today, but she has no complaints. CXR worse. Will get nebulizers, Afebrile. Still requiring 3 L nasal cannula to maintain O2 saturation 90%. Chest radiograph clearly showing developing pneumonia. Antibiotics added. She has no real complaints but still very hypoxic with movement. Still in A. fib on telemetry. Discussed with cardiology high risk for anticoagulation. 05/14 Patient evaluated at bedside. Doing well no major complaints. Following up with cardiology outpatient. Dialysis today. ABG after dialysis to determine if home O2 need. Will discharge after that then. Disposition: Disposition/Orders: D/C to Home w/ HH Activity: Activity: Resume previous activity Diet: Diet: Renal Medications: Home Meds Active Scripts Doxycycline Hyclate (DOXYCYCLINE HYCLATE) 100 Mg Tablet, 100 MG PO BID for pneumonia for 7 Days, #14 TAB Prov:CHARLIE NESS MD 05/14/21 Cefdinir (CEFDINIR) 300 Mg Capsule, 300 MG PO QODAY for pneumonia for 7 Days, #7 CAP Prov:CHARLIE NESS MD 05/14/21 Reported Medications Ferrous Sulfate (IRON) 325 Mg Tablet, 1 TAB PO DAILY for anemia for 30 Days, #30 TAB 0 Refills 05/14/20 Omeprazole (OMEPRAZOLE) 40 Mg Capsule.dr, 40 MG PO HS for GERD 05/12/20 Ziprasidone Hcl (ZIPRASIDONE HCL) 40 Mg Capsule, 20 MG PO HS for bipolar 05/12/20 Folic Acid/Vitamin B Comp W-C (BRUCE-MALU TABLET) 0.8 Mg Tablet, 1 TAB PO DAILY08 for FOR DIALYSIS PT for 30 Days, #30 TAB 0 Refills 03/23/20 Donepezil Hcl (DONEPEZIL HCL) 5 Mg Tablet, 10 MG PO QHS for 03/03/20 Hydralazine Hcl (HYDRALAZINE HCL) 25 Mg Tablet, 2 TAB PO BID for hypertension, #90 TAB 5 Refills 08/04/19 Scheduled Cefdinir (Cefdinir), 300 MG PO QODAY Donepezil Hcl (Donepezil Hcl), 10 MG PO QHS, (Reported) Doxycycline Hyclate (Doxycycline Hyclate), 100 MG PO BID Ferrous Sulfate (Iron), 1 TAB PO DAILY, (Reported) Folic Acid/Vitamin B Comp W-C (Bruce-Malu Tablet), 1 TAB PO DAILY08, (Reported) Hydralazine Hcl (Hydralazine Hcl), 2 TAB PO BID, (Reported) Omeprazole (Omeprazole), 40 MG PO HS, (Reported) Ziprasidone Hcl (Ziprasidone Hcl), 20 MG PO HS, (Reported) Justicifation of Admission Dx: Justifications for Admission: Justification of Admission Dx: Yes Chronic Renal Failure: Electrolyte Abnormality CHARLIE NESS MD May 14, 2021 12:48
--- NOTE | 2021-05-14 13:48 | PDOC ---
DATE OF SERVICE DATE: 05/14/21 TIME:10:40 SUBJECTIVE ROS Seen during dialysis No complaints OBJECTIVE Vital Signs Vital Signs Date Time Temp Pulse Resp B/P (MAP) Pulse Ox O2 Delivery O2 Flow Rate FiO2 05/14/21 08:14 104 100/44 05/14/21 08:00 Nasal Cannula 2.0 05/14/21 07:42 98 05/14/21 07:00 97.7 20 97.7 I & 0 Intake and Output 05/14/21 07:00 Intake Total 580 ml Output Total 150 ml Balance 430 ml Intake Oral 580 ml Output Urine Total 150 ml PHYSICAL EXAM Physical Exam General: No acute distress HEENT: Atraumatic, Mucous membr. moist/pink Neck Supple Lungs: Decreased at bases, Non Labored , On o2 by [place] Heart: Aflutter with variable conduction Abdomen: Soft, NT, BS + Extremities: No cyanosis,left arm edema, No LE edema Skin: No rash Neuro: Normal speech, Sensation intact Psych/Mental Status: Dx of dementia No Alvarado, No CAV opr SP tenderness DIAGNOSIS/ASSESSMENT Assessment & Plan ESRD - On HD MWF; Seen during dialysis, tolerating well. Continue a sordered, Dw Kaylin Ac Resp failure- on o2 by NC - Acute on chronic diastolic CH- cardiology managing Anemia: Hgb 6.5 POA, recd PRBC , Hgb > 7 AFlutter with variable conduction: rate controlled HTN: controlled Hx of DM2 Dementia LUE edema: chronic? DC per primary COMMENT/RELEVANT DATA Meds Current Medications Medications (Trade) Dose Ordered Sig/Diana Start Time Stop Time Status Last Admin Dose Admin Acetaminophen (Tylenol) 650 mg PRN Q6HRS PRN 05/09/21 18:30 Albumin Human 200 ml @ 200 mls/hr 1X PRN PRN 05/14/21 08:45 05/14/21 14:44 Albuterol Sulfate (Ventolin Neb Soln) 2.5 mg PRN Q4HRS PRN 05/12/21 15:30 Albuterol/ Ipratropium (Duoneb) 3 ml RTQID 05/12/21 16:00 05/14/21 07:42 3 ML Budesonide (Pulmicort) 0.5 mg RTBID 05/12/21 20:00 05/14/21 07:42 0.5 MG Cefdinir (Omnicef) 300 mg QODAY 05/13/21 13:00 05/13/21 13:09 300 MG Cefepime HCl (Maxipime) 1 gm Q24H 05/13/21 12:00 05/13/21 11:54 DC Dextrose (Dextrose 50%-Water Syringe) 12.5 gm PRN Q15MIN PRN 05/09/21 22:00 Diphenhydramine HCl (Benadryl) 25 mg 1X PRN PRN 05/10/21 11:30 05/11/21 11:29 DC Doxycycline Hyclate (Vibra-Tab) 100 mg BID 05/13/21 12:00 05/14/21 08:15 100 MG Fentanyl Citrate (Fentanyl 2ml Vial) 25 mcg PRN Q3HRS PRN 05/09/21 18:30 Hydralazine HCl (Apresoline Inj) 10 mg PRN Q4HRS PRN 05/09/21 18:30 Hydralazine HCl (Apresoline) 50 mg BID 05/09/21 21:00 05/13/21 20:41 50 MG Info (PHARMACY MONITORING -- do not chart) 1 each PRN DAILY PRN 05/14/21 08:45 UNV Insulin Human Lispro (HumaLOG) 0-9 UNITS TIDWMEALS 05/10/21 08:00 05/11/21 17:16 4 UNITS Lactobacillus Rhamnosus (Culturelle) 1 cap BID 05/14/21 21:00 Metoprolol Succinate (Toprol Xl) 12.5 mg DAILY 05/10/21 13:00 05/10/21 19:59 12.5 MG Olanzapine (ZyPREXA ZYDIS) 5 mg PRN BID PRN 05/09/21 18:30 05/13/21 20:41 5 MG Ondansetron HCl (Zofran) 4 mg PRN Q4HRS PRN 05/09/21 18:30 Pantoprazole Sodium (Protonix) 40 mg DAILYAC 05/10/21 07:30 05/14/21 08:15 40 MG Sodium Chloride 1,000 ml @ 400 mls/hr Q2H30M PRN 05/14/21 08:45 05/14/21 20:44 Tramadol HCl (Ultram) 50 mg PRN Q6HRS PRN 05/09/21 18:30 Ziprasidone (Geodon) 20 mg HS 05/09/21 21:00 05/13/21 20:41 20 MG Lab Laboratory Tests Test 05/13/21 17:21 05/13/21 21:05 05/14/21 04:00 05/14/21 08:13 Glucose (Fingerstick) 105 mg/dL (70-99) 179 mg/dL (70-99) 106 mg/dL (70-99) Sodium Level 135 mmol/L (136-145) Potassium Level 5.5 mmol/L (3.5-5.1) Chloride Level 97 mmol/L (98-107) Carbon Dioxide Level 28 mmol/L (21-32) Anion Gap 10 (6-14) Blood Urea Nitrogen 62 mg/dL (7-20) Creatinine 7.0 mg/dL (0.6-1.0) Estimated GFR (Cockcroft-Gault) 6.8 Glucose Level 136 mg/dL (70-99) Calcium Level 6.7 mg/dL (8.5-10.1) Results All relevant outside records, renal labs, imaging studies, telemetry/EKG's were reviewed. Justicifation of Admission Dx: Justifications for Admission: Justification of Admission Dx: Yes Chronic Renal Failure: Electrolyte Abnormality SALVADOR KOWALSKI MD May 14, 2021 13:48
[2021-05-14 13:50] VITALS: BP 92/48
[2021-05-14 15:28] LABS: BASE EXCESS ABG 4 mmol/L (-3-3); HCO3 ABG 29 mmol/L (21-28); PCO2 ABG 46 mmHg (35-46); SAT O2 ABG 84 % (92-99)
[2021-05-14 15:30] LABS: PO2 ABG 50 mmHg (65-108)
[2021-05-14 15:31] LABS: FIO2 ABG 21
[2021-05-14] MEDS: METOPROLOL SUCC 24HR ER 25 MG TAB.ER.24H. PO SCH (15:40)
[2021-05-14 19:53] VITALS: BP 90/41
[2021-05-14] MEDS: ZIPRASIDONE 20 MG CAPSULE PO SCH (21:44)
[2021-05-14] MEDS: LACTOBACILLUS RHAMNOSUS GG 1 CAPSULE. PO SCH (21:44)
[2021-05-14 22:53] VITALS: BP 104/49
[2021-05-15 02:44] VITALS: BP 102/49
[2021-05-15 07:00] VITALS: BP 98/45
[2021-05-15] MEDS: BUDESONIDE 0.5 MG/2 ML NEBU. NEB SCH (07:44)
[2021-05-15] MEDS: IPRATRPIUM/ALBUTEROL 0.5/2.5MG 3 ML NEBU. NEB SCH (07:44)
[2021-05-15] MEDS ORDERED: ASPIRIN ENTERIC COATED 81 MG TABLET.DR. PO SCH (08:00)
[2021-05-15] MEDS ORDERED: CEFD300C PO (08:59)
[2021-05-15] MEDS: hydrALAZINE 25 MG TABLET PO SCH (09:00)
--- NOTE | 2021-05-15 09:00 | SNU/HH DC ---
DISCHARGE ORDERS DISCHARGE INFORMATION: DISCHARGE DATE: May 14, 2021 FINAL DIAGNOSIS Problems Medical Problems: (1) Anemia of chronic disease Status: Acute (2) Exertional dyspnea Status: Acute (3) New onset a-fib Status: Acute (4) Normocytic anemia Status: Acute (5) Symptomatic anemia Status: Acute CONDITION ON DISCHARGE: Stable CODE STATUS: Code Status: Full [facility]: SNF STAY <30 DAYS: Yes POST DISCHARGE ORDERS: ACTIVITY ORDERS: Activity as tolerated WEIGHT BEARING STATUS: As tolerated DIET AFTER DISCHARGE: Renal WOUND/INCISION CARE: Keep wound/cast CDI CHECKS AFTER DISCHARGE: CHECKS AFTER DISCHARGE: Check blood press - daily, Check your Temp as needed, Weigh Yourself Daily FOLLOW-UP: LAB ORDERS FOR FOLLOW-UP: CMP, CBC, phosphorus levels TREATMENT/EQUIPMENT ORDERS: ADAPTIVE EQUIPMENT NEEDED: None Physical Therapy For: Evalulation/Treatment Occupational Therapy For: Evaluation/Treatment Speech Language Pathology For: Evaluation/Treatment DISCHARGE MEDICATIONS: Home Meds Active Scripts Cefdinir (CEFDINIR) 300 Mg Capsule, 300 MG PO BID for pneumonia for 7 Days, #14 CAP 0 Refills Prov:CHARLIE NESS MD 05/15/21 Doxycycline Hyclate (DOXYCYCLINE HYCLATE) 100 Mg Tablet, 100 MG PO BID for pneumonia for 7 Days, #14 TAB Prov:CHARLIE NESS MD 05/14/21 Cefdinir (CEFDINIR) 300 Mg Capsule, 300 MG PO QODAY for pneumonia for 7 Days, #7 CAP Prov:CHARLIE NESS MD 05/14/21 Reported Medications Ferrous Sulfate (IRON) 325 Mg Tablet, 1 TAB PO DAILY for anemia for 30 Days, #30 TAB 0 Refills 05/14/20 Omeprazole (OMEPRAZOLE) 40 Mg Capsule.dr, 40 MG PO HS for GERD 05/12/20 Ziprasidone Hcl (ZIPRASIDONE HCL) 40 Mg Capsule, 20 MG PO HS for bipolar 05/12/20 Folic Acid/Vitamin B Comp W-C (BRUCE-MALU TABLET) 0.8 Mg Tablet, 1 TAB PO DAILY08 for FOR DIALYSIS PT for 30 Days, #30 TAB 0 Refills 03/23/20 Donepezil Hcl (DONEPEZIL HCL) 5 Mg Tablet, 10 MG PO QHS for 03/03/20 Hydralazine Hcl (HYDRALAZINE HCL) 25 Mg Tablet, 2 TAB PO BID for hypertension, #90 TAB 5 Refills 08/04/19 CHARLIE NESS MD May 15, 2021 09:00
--- NOTE | 2021-05-15 09:01 | PDOC ---
[employer] PROGRESS NOTE Date of Service DOS: DATE: 05/15/21 TIME: 09:01 Chief Complaint Chief Complaint A/P: Acute hypoxic respiratory failure - likely diastolic CHF and pulmonary edema due to worsening anemia and bronchitis with pneumonia. Possibly patient has been losing weight and may need additional ultrafiltration and dry weight adjustment. No cough or recent hospital stays or sick contacts Acute on chronic anemia - s/p transfusion for symptomatic anemia. Check fecal occult New onset atrial fibrillation - does appear to be atrial flutter with variable conduction. Would not anticoagulate given 2 admissions for GI bleeding in 2019 while anticoagulating a DVT End-stage renal disease on hemodialysis - MWF normally. Will consult nephrology for dialysis scheduling while inpatient Moderate protein calorie malnutrition - nepro with meals Dementia - on aricept, would hold this given her history of GI bleeding and new arrhythmia Acute encephalopathy - noted by daughter to be more confused, could be metabolic due to anemia, but could be due to dementia HTN - cont home meds, prn hydralazine DM2 - sliding scale insulin FEN - Renal ada diet PPX - SCDs, PPI FULL CODE. discussed with daughter bedside, she will discuss possible DNR with her brother Dispo - inpatient for above History of Present Illness History of Present Illness Ms Michelle is an 84yo F w/ PMHx dementia, Diabetes-Type II, HTN, ESRD on HD on MWF who was brought here from home via EMS at the request of her daughter for worsening dyspnea upon exertion and confusion. Patient's SPO2 86-88% on room air upon arrival, 3L oxygen applied via nasal cannula. Patient currently denies any symptoms, denies pain. Respirations even and unlabored. Patient was due to have hemodialysis today but appointment rescheduled to tomorrow per EMS. Daughter notes shortness of breath and her mother stopping while ambulating with her cane to the restroom. S/p Covid vaccine in October 2020. Lives with her granddaughter and has home health aide who assist with patient's care. She has previously been admitted for blood loss anemia and she had EGD on 04/06/2020 with resolving gastritis. She has been on eliquis for left IJ DVT previously which was stopped over a year ago. Patient does not seem to comprehend the fact that due to the dialysis treatment she will need constant monitoring and patient also has had a history of nonadherence to treatment plans previously. Patient pleasantly demented, she does not seem to know she is in the hospital. WBC 5.9, Hb 6.6, platelets 245, NA 142, K4.5, BUN 42, creatinine 6.7, glucose 193, calcium 8.1, magnesium 2.3, LFTs within normal laboratory limits albumin 2.9, rapid COVID-19 negative Chest radiograph: Cardiomegaly. Diffuse bilateral reticular opacities. EKG appears to be irregular atrial arrhythmia possibly flutter or afib with rate approximately 84bpm and left axis deviation. No ST segment elevations or TWI. 05/10: Hb up to 7.5 posttransfusion little less short of breath today. She is pleasantly confused Discussed with nephrology she missed dialysis. Rate controlled A. flutter on tele Echo with mild aortic stenosis and pulmonary artery pressure 50 mmHg. 3L UF at dialysis 05/11: Afebrile. Appearing less short of breath today. to dialysis again today with only 1.8L UF tolerated. Discussed with daughter. ABG with pH 7.42 PCO2 47 PO2 40 on room air. 05/12: Afebrile overnight still requiring 3 L nasal cannula O2 to maintain sat urations greater than 92%. Wheezing today, but she has no complaints. CXR worse. Will get nebulizers, Afebrile. Still requiring 3 L nasal cannula to maintain O2 saturation 90%. Chest radiograph clearly showing developing pneumonia. Antibiotics added. She has no real complaints but still very hypoxic with movement. Still in A. fib on telemetry. Discussed with cardiology high risk for anticoagulation. 05/15 No Events overnight accepted to [facility] discharging today. Vitals/I&O Vitals/I&O: Vital Signs Date Time Temp Pulse Resp B/P (MAP) Pulse Ox O2 Delivery O2 Flow Rate FiO2 05/15/21 07:44 100 Nasal Cannula 2.0 05/15/21 07:00 98.7 101 16 98/45 (62) 98.7 I & O 05/14/21 05/14/21 05/15/21 15:00 23:00 07:00 Intake Total 250 ml 300 ml 0 ml Balance 250 ml 300 ml 0 ml Physical Exam General: Alert, Cooperative, No acute distress Heart: Other (Aflutter with variable conduction) Lungs: Wheezing Abdomen: Soft Extremities: No cyanosis, Other (left arm edema) Skin: No breakdown Labs Labs: Laboratory Tests Test 05/14/21 13:53 05/14/21 15:15 05/14/21 16:22 05/14/21 20:31 Glucose (Fingerstick) 122 mg/dL (70-99) 172 mg/dL (70-99) 151 mg/dL (70-99) O2 Saturation 84 % (92-99) Arterial Blood pH 7.41 (7.35-7.45) Arterial Blood pCO2 at Patient Temp 46 mmHg (35-46) Arterial Blood pO2 at Patient Temp 50 mmHg (65-108) Arterial Blood HCO3 29 mmol/L (21-28) Arterial Blood Base Excess 4 mmol/L (-3-3) FiO2 21 Test 05/15/21 07:40 Glucose (Fingerstick) 158 mg/dL (70-99) Assessment and Plan Assessmemt and Plan Problems Medical Problems: (1) Anemia of chronic disease Status: Acute (2) Exertional dyspnea Status: Acute (3) New onset a-fib Status: Acute (4) Normocytic anemia Status: Acute (5) Symptomatic anemia Status: Acute Comment Review of Relevant I have reviewed the following items rose (where applicable) has been applied. Medications: Current Medications Medications (Trade) Dose Ordered Sig/Diana Route PRN Reason Start Time Stop Time Status Last Admin Dose Admin Lactobacillus Rhamnosus (Culturelle) 1 cap BID PO 05/14/21 21:00 05/14/21 21:44 Justifications for Admission Other Justification Hyperkalemia, end-stage renal disease CHARLIE NESS MD May 15, 2021 09:01
[2021-05-15 09:11] VITALS: BP 98/45
[2021-05-15] MEDS: METOPROLOL SUCC 24HR ER 25 MG TAB.ER.24H. PO SCH (09:11)
[2021-05-15] MEDS: DOXYCYCLINE HYCLATE 100 MG TABLET PO SCH (09:11)
[2021-05-15] MEDS: CEFDINIR 300 MG CAPSULE PO SCH (09:11)
[2021-05-15] MEDS: PANTOPRAZOLE 40 MG TABLET.DR. PO SCH (09:11)
[2021-05-15] MEDS: LACTOBACILLUS RHAMNOSUS GG 1 CAPSULE. PO SCH (09:12)
[2021-05-15] MEDS: INSULIN LISPRO 300 UNITS/3 ML VIAL. SQ SCH (09:20)
--- NOTE | 2021-05-15 11:00 | SNU/HH DC ---
DISCHARGE ORDERS DISCHARGE INFORMATION: DISCHARGE DATE: May 15, 2021 FINAL DIAGNOSIS Problems Medical Problems: (1) Anemia of chronic disease Status: Acute (2) Exertional dyspnea Status: Acute (3) New onset a-fib Status: Acute (4) Normocytic anemia Status: Acute (5) Symptomatic anemia Status: Acute CONDITION ON DISCHARGE: Stable CODE STATUS: Code Status: Full SENIOR CARE: SNF STAY <30 DAYS: Yes POST DISCHARGE ORDERS: ACTIVITY ORDERS: Activity as tolerated WEIGHT BEARING STATUS: As tolerated DIET AFTER DISCHARGE: Renal WOUND/INCISION CARE: No wound care needed CHECKS AFTER DISCHARGE: CHECKS AFTER DISCHARGE: Check blood press - daily, Check blood sugar, ac/hs, Check your Temp as needed FOLLOW-UP: ADDITIONAL FOLLOW-UP: Primary care provider in 1 month LAB ORDERS FOR FOLLOW-UP: CMP, CBC, phosphorus levels TREATMENT/EQUIPMENT ORDERS: ADAPTIVE EQUIPMENT NEEDED: Walker RESPIRATORY EQUIPMENT NEEDED: Oxygen Physical Therapy For: Evalulation/Treatment Occupational Therapy For: Evaluation/Treatment Speech Language Pathology For: Evaluation/Treatment DISCHARGE MEDICATIONS: Home Meds Active Scripts Cefdinir (CEFDINIR) 300 Mg Capsule, 300 MG PO BID for pneumonia for 7 Days, #14 CAP 0 Refills Prov:CHARLIE NESS MD 05/15/21 Doxycycline Hyclate (DOXYCYCLINE HYCLATE) 100 Mg Tablet, 100 MG PO BID for pneumonia for 7 Days, #14 TAB Prov:CHARLIE NESS MD 05/14/21 Reported Medications Ferrous Sulfate (IRON) 325 Mg Tablet, 1 TAB PO DAILY for anemia for 30 Days, #30 TAB 0 Refills 05/14/20 Omeprazole (OMEPRAZOLE) 40 Mg Capsule.dr, 40 MG PO HS for GERD 05/12/20 Ziprasidone Hcl (ZIPRASIDONE HCL) 40 Mg Capsule, 20 MG PO HS for bipolar 05/12/20 Folic Acid/Vitamin B Comp W-C (BRUCE-MALU TABLET) 0.8 Mg Tablet, 1 TAB PO DAILY08 for FOR DIALYSIS PT for 30 Days, #30 TAB 0 Refills 03/23/20 Donepezil Hcl (DONEPEZIL HCL) 5 Mg Tablet, 10 MG PO QHS for 03/03/20 Hydralazine Hcl (HYDRALAZINE HCL) 25 Mg Tablet, 2 TAB PO BID for hypertension, #90 TAB 5 Refills 08/04/19 CHARLIE NESS MD May 15, 2021 11:00
--- NOTE | 2021-05-15 11:06 | NUR ---
Discharge Note: DENISE PAN [address] Discharge instructions and discharge home medications reviewed with Patient and a copy given. All questions have been answered and understanding verbalized. The following instructions and handouts were given: cefdinir, doxycycline Patient discharged to [facility] with transport via wheelchair. Report called to JULIANA Lance.
--- NOTE | 2021-05-15 11:51 | PDOC ---
DATE OF SERVICE DATE: 05/15/21 TIME: 09:00 SUBJECTIVE ROS Seen during dialysis No complaints OBJECTIVE Vital Signs Vital Signs Date Time Temp Pulse Resp B/P (MAP) Pulse Ox O2 Delivery O2 Flow Rate FiO2 05/15/21 09:11 101 98/45 05/15/21 08:00 Nasal Cannula 2.0 05/15/21 07:44 100 05/15/21 07:00 98.7 16 98.7 I & 0 Intake and Output 05/15/21 07:00 Intake Total 550 ml Balance 550 ml Intake Oral 550 ml # Voids 2 # Bowel Movements 2 PHYSICAL EXAM Physical Exam General: No acute distress HEENT: Atraumatic, Mucous membr. moist/pink Neck Supple Lungs: Decreased at bases, Non Labored , On o2 by NC Heart: Aflutter with variable conduction Abdomen: Soft, NT, BS + Extremities: No cyanosis,left arm edema, No LE edema Skin: No rash Neuro: Normal speech, Sensation intact Psych/Mental Status: Dx of dementia No Alvarado, No CAV opr SP tenderness DIAGNOSIS/ASSESSMENT Assessment & Plan ESRD - On HD MWF; No Indication for HD today. Resume Dialysis tomorrow at her Unit Ac Resp failure- on o2 by NC - Acute on chronic diastolic CH- cardiology managing Anemia: Hgb 6.5 POA, recd PRBC , Hgb > 7 AFlutter with variable conduction: rate controlled HTN: controlled Hx of DM2 Dementia LUE edema: chronic? DC per primary COMMENT/RELEVANT DATA Meds Current Medications Medications (Trade) Dose Ordered Sig/Diana Start Time Stop Time Status Last Admin Dose Admin Acetaminophen (Tylenol) 650 mg PRN Q6HRS PRN 05/09/21 18:30 05/15/21 11:15 DC 05/14/21 21:44 650 MG Albumin Human 200 ml @ 200 mls/hr 1X PRN PRN 05/14/21 08:45 05/14/21 14:44 DC Albuterol Sulfate (Ventolin Neb Soln) 2.5 mg PRN Q4HRS PRN 05/12/21 15:30 05/15/21 11:15 DC Albuterol/ Ipratropium (Duoneb) 3 ml RTQID 05/12/21 16:00 05/15/21 11:15 DC 05/15/21 07:44 3 ML Aspirin (Ecotrin) 81 mg DAILYWBKFT 05/15/21 08:00 05/15/21 11:15 DC 05/15/21 09:13 81 MG Budesonide (Pulmicort) 0.5 mg RTBID 05/12/21 20:00 05/15/21 11:15 DC 05/15/21 07:44 0.5 MG Cefdinir (Omnicef) 300 mg QODAY 05/13/21 13:00 05/15/21 11:15 DC 05/15/21 09:11 300 MG Cefepime HCl (Maxipime) 1 gm Q24H 05/13/21 12:00 05/13/21 11:54 DC Dextrose (Dextrose 50%-Water Syringe) 12.5 gm PRN Q15MIN PRN 05/09/21 22:00 05/15/21 11:15 DC Diphenhydramine HCl (Benadryl) 25 mg 1X PRN PRN 05/10/21 11:30 05/11/21 11:29 DC Doxycycline Hyclate (Vibra-Tab) 100 mg BID 05/13/21 12:00 05/15/21 11:15 DC 05/15/21 09:11 100 MG Fentanyl Citrate (Fentanyl 2ml Vial) 25 mcg PRN Q3HRS PRN 05/09/21 18:30 05/15/21 11:15 DC Hydralazine HCl (Apresoline Inj) 10 mg PRN Q4HRS PRN 05/09/21 18:30 05/15/21 11:15 DC Hydralazine HCl (Apresoline) 50 mg BID 05/09/21 21:00 05/15/21 11:15 DC 05/13/21 20:41 50 MG Info (PHARMACY MONITORING -- do not chart) 1 each PRN DAILY PRN 05/14/21 08:45 UNV Insulin Human Lispro (HumaLOG) 0-9 UNITS TIDWMEALS 05/10/21 08:00 05/15/21 11:15 DC 05/15/21 09:20 4 UNITS Lactobacillus Rhamnosus (Culturelle) 1 cap BID 05/14/21 21:00 05/15/21 11:15 DC 05/15/21 09:12 1 CAP Metoprolol Succinate (Toprol Xl) 12.5 mg DAILY 05/10/21 13:00 05/15/21 11:15 DC 05/15/21 09:11 12.5 MG Olanzapine (ZyPREXA ZYDIS) 5 mg PRN BID PRN 05/09/21 18:30 05/15/21 11:15 DC 05/13/21 20:41 5 MG Ondansetron HCl (Zofran) 4 mg PRN Q4HRS PRN 05/09/21 18:30 05/15/21 11:15 DC Pantoprazole Sodium (Protonix) 40 mg DAILYAC 05/10/21 07:30 05/15/21 11:15 DC 05/15/21 09:11 40 MG Sodium Chloride 1,000 ml @ 400 mls/hr Q2H30M PRN 05/14/21 08:45 05/14/21 20:44 DC Tramadol HCl (Ultram) 50 mg PRN Q6HRS PRN 05/09/21 18:30 05/15/21 11:15 DC Ziprasidone (Geodon) 20 mg HS 05/09/21 21:00 05/15/21 11:15 DC 05/14/21 21:44 20 MG Lab Laboratory Tests Test 05/14/21 13:53 05/14/21 15:15 05/14/21 16:22 05/14/21 20:31 Glucose (Fingerstick) 122 mg/dL (70-99) 172 mg/dL (70-99) 151 mg/dL (70-99) O2 Saturation 84 % (92-99) Arterial Blood pH 7.41 (7.35-7.45) Arterial Blood pCO2 at Patient Temp 46 mmHg (35-46) Arterial Blood pO2 at Patient Temp 50 mmHg (65-108) Arterial Blood HCO3 29 mmol/L (21-28) Arterial Blood Base Excess 4 mmol/L (-3-3) FiO2 21 Test 05/15/21 07:40 Glucose (Fingerstick) 158 mg/dL (70-99) Results All relevant outside records, renal labs, imaging studies, telemetry/EKG's were reviewed. Justicifation of Admission Dx: Justifications for Admission: Justification of Admission Dx: Yes Chronic Renal Failure: Electrolyte Abnormality SALVADOR KOWALSKI MD May 15, 2021 11:51
== END 2021-05-15 11:11 | DRG 193 ==
LOC: ER 12:28 → ED HOLD 16:10 → 6 SOUTH 16:10
PROVIDERS: ADMIT Internal Medicine; ATTEND Internal Medicine
PROC: 30233N1 Transfusion of Nonautologous Red Blood Cells into Peripheral Vein, Percutaneous Approach (ICD-10-PCS; principal; 2021-05-09)
PROC: 5A1D70Z Performance of Urinary Filtration, Intermittent, Less than 6 Hours Per Day (ICD-10-PCS; 2021-05-10)
PROC: 5A1D70Z Performance of Urinary Filtration, Intermittent, Less than 6 Hours Per Day (ICD-10-PCS; 2021-05-11)
PROC: 5A1D70Z Performance of Urinary Filtration, Intermittent, Less than 6 Hours Per Day (ICD-10-PCS; 2021-05-14)
DX: J18.9 Pneumonia, unspecified organism (principal); N18.6 End stage renal disease; I50.33 Acute on chronic diastolic (congestive) heart failure; J96.21 Acute and chronic respiratory failure with hypoxia; E44.0 Moderate protein-calorie malnutrition; I13.2 Hypertensive heart and chronic kidney disease with heart failure and with stage 5 chronic kidney disease, or end stage renal disease; I48.92 Unspecified atrial flutter; G93.40 Encephalopathy, unspecified; J40 Bronchitis, not specified as acute or chronic; I48.0 Paroxysmal atrial fibrillation; D63.8 Anemia in other chronic diseases classified elsewhere; E11.22 Type 2 diabetes mellitus with diabetic chronic kidney disease; E78.5 Hyperlipidemia, unspecified; E87.5 Hyperkalemia; F03.90 Unspecified dementia, unspecified severity, without behavioral disturbance, psychotic disturbance, mood disturbance, and anxiety; Z20.822 Contact with and (suspected) exposure to COVID-19; Z82.49 Family history of ischemic heart disease and other diseases of the circulatory system; Z85.3 Personal history of malignant neoplasm of breast; Z86.718 Personal history of other venous thrombosis and embolism; Z87.891 Personal history of nicotine dependence; Z99.2 Dependence on renal dialysis; D50.0 Iron deficiency anemia secondary to blood loss (chronic); K21.9 Gastro-esophageal reflux disease without esophagitis; M19.90 Unspecified osteoarthritis, unspecified site
CPT/HCPCS: 36415; 36430; 36600; 71045; 80048; 80061; 80069; 80076; 82805; 82962; 83605; 83690; 83735; 83880; 84145; 84443; 84484; 85025; 85027; 86706; 86850; 86900; 86901; 86920; 87040; 87340; 87426; 93005; 93306; 94640; 94760; J1815; P9016; U0003; U0005; 97530-GP; 99285-25; G0378; J7626

== ENCOUNTER 2021-07-06 11:08 | Inpatient (IN) | payer MEDICARE ==
[~2021-07-06] VITALS: Ht 162.6 cm; Wt 69.0 kg
[~2021-07-06 11:08] MED LIST changes: +CEFD300C PO; +DOXY100T PO
[2021-07-06 12:03] LABS: INFLUENZA A PATIENT NEGATIVE (NEGATIVE); INFLUENZA B PATIENT NEGATIVE (NEGATIVE)
--- NOTE | 2021-07-06 12:08 | RAD ---
Study: XR CHEST 1V Indication: Weakness. Comparison: 05/12/2021 Findings: Redemonstrated enlargement of the cardiomediastinal silhouette and vascular calcifications. Probable small left larger than right pleural effusions appearing slightly decreased from the compari son. Overlying opacification on the left. Less pronounced atelectasis at the right lung base from the prior. Opacities at the upper right lung on the comparison are not well seen on today's exam. Backgr ound interstitial prominence. No pneumothorax. Osteopenia. Impression: 1. Blunted costophrenic angles suggesting small left larger than right pleural effusions which were a lso present on the prior and appear slightly decreased. Ongoing opacification at the left lung base w hich could be passive atelectasis or an infectious process but follow-up is needed to confirm resolut ion. 2. Improved aeration of the right lung. Redemonstrated enlargement of the cardiomediastinal silhouett ePatsy Electronically signed by: SUNIL MATHEW MD (07/06/2021 12:05 PM) [id number]
--- NOTE | 2021-07-06 12:18 | PHYS DOC ---
Past Medical History Past Medical History: Anemia, Diabetes-Type II, Hypertension, Renal Disease, Renal Failure, Other Additional Past Medical Histor: dialysis,ESRD,CKD, rt breast ca (JANINA NICHOLS APRN) Past Surgical History: Other Additional Past Surgical Histo: rt mastectomy (JANINA NICHOLS PRINCIPAL GIFTS OFFICER) Smoking Status: Never Smoker Alcohol Use: None Drug Use: None (JANINA NICHOLS APRN) General Adult EDM: Chief Complaint: KNEE SWELLING HPI: HPI: Patient is an 85-year old female that presents today via EMS with her chief complaint as right knee pain. Per [facility] staff in the emergency department EMS was told that the patient was getting ready to go to dialysis and was unable to get into the vehicle to take her to dialysis they were unsure if the patient was too weak or had right knee pain for that she was then they called 911 for have her transported here. Patient does have a history of moderate to severe dementia and is unable to give a great history, patient keeps repeating that she is not sure why she is here. 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 Daughter states that the 16-year-old granddaughter was there over the last couple days as well in and out and says there is really nothing abnormal about patient's behavior last couple days. While reviewing past medical records it looks like in May 2021 patient was here for severe anemia and weakness and was found to have a hemoglobin of 6.6, daughter states that she was admitted for couple days then sent to [facility] for rehab, daughter states that patient did have a steroid injection of her right knee while at [facility] for right knee pain is only been in the home for the last 2 to 3 weeks since rehab. (JANINA NICHOLS PRINCIPAL GIFTS OFFICER) Review of Systems: Review of Systems: Constitutional: Denies fever or chills. [] Eyes: Denies change in visual acuity. [] HENT: Denies nasal congestion or sore throat. [] Respiratory: Denies cough or shortness of breath. [] Cardiovascular: Denies chest pain or edema. [] GI: Denies abdominal pain, nausea, vomiting, bloody stools or diarrhea. [] : Denies dysuria. [] Musculoskeletal: Right knee pain Integument: Denies rash. [] Neurologic: Denies headache, focal weakness or sensory changes. [] Endocrine: Denies polyuria or polydipsia. [] Lymphatic: Denies swollen glands. [] Psychiatric: Denies depression or anxiety. [] (JANINA NICHOLS PRINCIPAL GIFTS OFFICER) Heart Score: C/O Chest Pain: N/A Risk Factors: Risk Factors: DM, Current or recent (<one month) smoker, HTN, HLP, family history of CAD, obesity. Risk Scores: Score 0 - 3: 2.5% MACE over next 6 weeks - Discharge Home Score 4 - 6: 20.3% MACE over next 6 weeks - Admit for Clinical Observation Score 7 - 10: 72.7% MACE over next 6 weeks - Early Invasive Strategies (JANINA NICHOLS APRN) Allergies: Allergies: Allergies Coded Allergies Type Severity Reaction Last Updated Verified Sulfa (Sulfonamide Antibiotics) Allergy Severe RODRIGUEZ DUSTIN SYNDROME Yes Penicillins Allergy Intermediate 07/06/21 Yes propoxyphene Allergy Intermediate 07/06/21 Yes (JANINA NICHOLS [employer]INCIP[employer]IFTS OFFICER) Physical Exam: PE: Constitutional: Well developed, well nourished, mild distress, non-toxic appearance. [] HENT: Normocephalic, atraumatic, bilateral external ears normal, oropharynx moist, no oral exudates, nose normal. [] Eyes: PERRLA, EOMI, conjunctiva normal, no discharge. [] Neck: Normal range of motion, no tenderness, supple, no stridor. [] Cardiovascular:Heart rate regular rhythm, no murmur [] Lungs & Thorax: Bilateral breath sounds diminished breath sounds in bilateral bases Abdomen: Bowel sounds normal, soft, no tenderness, no masses, no pulsatile masses. [] Skin: Warm, dry, no erythema, no rash. [] Back: No tenderness, no CVA tenderness. [] Extremities: Tenderness to palpation of the right knee, scant amount of swelling noted in the right knee, no redness or warmth noted, pedal pulses bilaterally are 1+ trace pedal edema noted, left upper arm fistula positive bruit and thrill noted, trace amount of swelling noted in the left arm Neurologic: Alert and oriented to self and knows she is at the hospital, normal motor function, normal sensory function, no focal deficits noted. [] Psychologic: Affect flat pleasantly confused, mood normal. [] (JANINA NICHOLS APRN) Current Patient Data: Labs: Laboratory Tests Test 07/06/21 11:28 Influenza Type A Antigen Negative (NEGATIVE) Influenza Type B Antigen Negative (NEGATIVE) SARS-CoV-2 Antigen (Rapid) Negative (NEGATIVE) Vital Signs: Vital Signs Date Time Temp Pulse Resp B/P (MAP) Pulse Ox O2 Delivery O2 Flow Rate FiO2 07/06/21 13:39 52 20 156/70 (98) 95 Room Air 07/06/21 12:13 76 16 131/61 (84) 92 07/06/21 11:15 97.6 81 24 139/52 (81) 84 Room Air 97.6 Vital Signs Date Time Temp Pulse Resp B/P (MAP) Pulse Ox O2 Delivery O2 Flow Rate FiO2 07/06/21 11:15 97.6 81 24 139/52 (81) 84 Room Air 97.6 (JANINA NICHOLS PRINCIPAL GIFTS OFFICER) EKG: EKG: EKG done at [address] Burdick at 1227 patient shows A. fib on the monitor at a rate of [address] Burdick [] (JANINA NICHOLS PRINCIPAL GIFTS OFFICER) Radiology/Procedures: Radiology/Procedures: REASON: weakness PROCEDURE: CHEST AP ONLY Study: XR CHEST 1V Indication: Weakness. Comparison: 05/12/2021 Findings: Redemonstrated enlargement of the cardiomediastinal silhouette and vascular calcifications. Probable small left larger than right pleural effusions appearing slightly decreased from the comparison. Overlying opacification on the left. Less pronounced atelectasis at the right lung base from the prior. Opacities at the upper right lung on the comparison are not well seen on today's exam. Background interstitial prominence. No pneumothorax. Osteopenia. Impression: 1. Blunted costophrenic angles suggesting small left larger than right pleural effusions which were also present on the prior and appear slightly decreased. Ongoing opacification at the left lung base which could be passive atelectasis or an infectious process but follow-up is needed to confirm resolution. 2. Improved aeration of the right lung. Redemonstrated enlargement of the cardiomediastinal silhouette.[] (JANINA NICHOLS APRN) Course & Med Decision Making: Course & Med Decision Making Pertinent Labs and Imaging studies reviewed. (See chart for details) 1219 went into evaluate left upper arm fistula spoke to daughter and daughter is requesting a social work consult [address] Doty regarding admission of this patient he is agreeable to admission will also consult nephrology for need of immediate dialysis. (JANINA NICHOLS APRN) Dragon Disclaimer: Dragon Disclaimer: This electronic medical record was generated, in whole or in part, using a voice recognition dictation system. (JANINA NICHOLS APRN) Departure Departure Impression: Primary Impression: Weakness generalized Additional Impressions: Congestive heart failure Qualified Codes: I50.9 - Heart failure, unspecified Renal failure Qualified Codes: N18.6 - End stage renal disease; Z99.2 - Dependence on renal dialysis Disposition: ADMITTED INPATIENT Admitting Physician: JUAN (JANINA NICHOLS APRN) Referrals: DELTA RIZVI MD (PCP) Attending Signature Attending Signature I have reviewed the PA/DIRECTOR COMPLIANCE's note and plan of care. I was available for consultation as needed during the patient's visit in the emergency department. I agree with the clinical impression, plan, and disposition. (DAMARIS BURDICK DO) JANINA NICHOLS APRN Jul 06, 2021 12:18 DAMARIS BURDICK DO Jul 07, 2021 06:26
[2021-07-06 13:01] LABS: BASO % 1 % (0-3); EOS % 0 % (0-3); HEMATOCRIT 32.2 % (36.0-47.0); HEMOGLOBIN 10.1 g/dL (12.0-15.5); LYMPH # 0.3 x10^3/uL (1.0-4.8); LYMPH % 4 % (24-48); MEAN CORPUSCULAR HEMOGLOBIN 30 pg (25-35); MEAN CORPUSCULAR HGB CONC 32 g/dL (31-37); MEAN CORPUSCULAR VOLUME 97 fL (79-100); MONO # 0.5 x10^3/uL (0.0-1.1); MONO % 8 % (0-9); NEUT # 5.3 x10^3/uL (1.8-7.7); NEUT % 87 % (31-73); PLATELET COUNT 129 x10^3/uL (140-400); RED BLOOD COUNT 3.33 x10^6/uL (3.50-5.40); RED CELL DISTRIBUTION WIDTH 20.8 % (11.5-14.5); WHITE BLOOD COUNT 6.1 x10^3/uL (4.0-11.0)
[2021-07-06 13:15] LABS: CALCIUM 7.1 mg/dL (8.5-10.1); GFR 6.8; POTASSIUM 3.8 mmol/L (3.5-5.1)
[2021-07-06 13:20] LABS: ALBUMIN/GLOBULIN RATIO 1.1 (1.0-1.7); TOTAL BILIRUBIN 0.9 mg/dL (0.2-1.0); TOTAL PROTEIN 5.8 g/dL (6.4-8.2)
--- NOTE | 2021-07-06 13:43 | EKG ---
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
[2021-07-06 13:54] LABS: % LYMPHS 7 % (24-48); % MONOS 5 % (0-10); % SEGS 88 % (35-66); ANISOCYTOSIS MOD; PLT ESTIMATE DECREASED (ADEQUATE); POIKILOCYTOSIS SLIGHT
[2021-07-06 13:55] LABS: SCHISTOCYTES OCC
[2021-07-06] MEDS ORDERED: IV NORMAL SALINE 1000ML BAG 1,000 ML IV PRN ×2 (14:45)
[2021-07-06] MEDS ORDERED: DIALYSIS PATIENT. MC PRN (14:45)
[2021-07-06] MEDS ORDERED: diphenhydrAMINE 50 MG/ML VIAL IV PRN ×2 (14:45)
[2021-07-06 19:17] VITALS: BP 136/65
[2021-07-06 22:08] VITALS: BP 145/65
[2021-07-07] MEDS: ZIPRASIDONE 20 MG CAPSULE PO SCH ×2 (01:13→20:47)
[2021-07-07] MEDS: PANTOPRAZOLE 40 MG TABLET.DR. PO SCH ×2 (01:13→20:47)
[2021-07-07] MEDS: DONEPEZIL HCL 10 MG TABLET. PO SCH ×2 (01:13→20:47)
[2021-07-07 02:20] VITALS: BP 131/58
[2021-07-07 07:34] VITALS: BP 110/54
[2021-07-07] MEDS: FERROUS SULFATE 325 MG TABLET. PO SCH (08:00)
--- NOTE | 2021-07-07 10:06 | PDOC1 ---
History and Physical Date of Service: DOS: DATE: 07/07/21 TIME: 09:54 Chief Complaint: Chief Complain: Weakness, knee swelling History of Present Illness: HPI: Patient unable to really provide much history and no family at bedside thus history from emergency room Patient is an 85-year old female that presents today via EMS with her chief complaint as right knee pain. Per [facility] staff in the emergency department EMS was told that the patient was getting ready to go to dialysis and was unable to get into the vehicle to take her to dialysis they were unsure if the patient was too weak or had right knee pain for that she was then they called 911 for have her transported here. Patient does have a history of moderate to severe dementia and is unable to give a great history, patient keeps repeating that she is not sure why she is here. Daughter was at the bedside during my evaluation daughter states that she normally has dialysis on Friday this week it was different due to the holidays she had dialysis on Friday and was supposed to have dialysis here on Friday, daughter states that she lives in the home she does have a planner and also has home health that helps take her to dialysis 3 days a week. Daughter states that the 16-year-old granddaughter was there over the last couple days as well in and out and says there is really nothing abnormal about patient's behavior last couple days. While reviewing past medical records it looks like in May 2021 patient was here for severe anemia and weakness and was found to have a hemoglobin of 6.6, daughter states that she was admitted for couple days then sent to [facility] for rehab, daughter states that patient did have a steroid injection of her right knee while at [facility] for right knee pain is only been in the home for the last 2 to 3 weeks since rehab. Past Medical/Surgical History: PMH/PSH: Past Medical History: Anemia, Diabetes-Type II, Hypertension, Renal Failure Allergies: Allergies: Coded Allergies: Sulfa (Sulfonamide Antibiotics) (Verified Allergy, Severe, RODRIGUEZ DUSTIN SYNDROME, 07/06/21) Penicillins (Verified Allergy, Intermediate, 07/06/21) propoxyphene (Verified Allergy, Intermediate, 07/06/21) Family History: Family History: DM2 Social History: Social History: No alcohol tobacco or drug use Current Medications: Current Medications Current Medications Sodium Chloride 1,000 ml @ 1,000 mls/hr Q1H PRN IV hypotension; Start 07/06/21 at 14:45; Stop 07/06/21 at 20:44; Status DC Diphenhydramine HCl (Benadryl) 25 mg 1X PRN PRN IV ITCHING; Start 07/06/21 at 14:45; Stop 07/07/21 at 14:44 Diphenhydramine HCl (Benadryl) 25 mg 1X PRN PRN IV ITCHING; Start 07/06/21 at 14:45; Stop 07/07/21 at 14:44 Sodium Chloride 1,000 ml @ 400 mls/hr Q2H30M PRN IV PATENCY; Start 07/06/21 at 14:45; Stop 07/07/21 at 02:44; Status DC Info (PHARMACY MONITORING -- do not chart) 1 each PRN DAILY PRN MC SEE COMMENTS; Start 07/06/21 at 14:45 Donepezil HCl (Aricept) 10 mg QHS PO Last administered on 07/07/21at 01:13; Start 07/06/21 at 23:30 Ferrous Sulfate (Feosol) 325 mg DAILY08 PO Last administered on 07/07/21at 08:00; Start 07/07/21 at 08:00 Pantoprazole Sodium (Protonix) 40 mg HS PO Last administered on 07/07/21at 01: 13; Start 07/06/21 at 23:30 Ziprasidone (Geodon) 20 mg HS PO Last administered on 07/07/21at 01:13; Start 07/06/21 at 23:30 Active Scripts Active Reported Iron (Ferrous Sulfate) 325 Mg Tablet 1 Tab PO DAILY 30 Days Omeprazole 40 Mg Capsule.dr 40 Mg PO HS Ziprasidone Hcl 40 Mg Capsule 20 Mg PO HS Donepezil Hcl 5 Mg Tablet 10 Mg PO QHS Hydralazine Hcl 25 Mg Tablet 2 Tab PO BID ROS: Review of Systems Review of System Could not obtain accurately due to patient's altered mental status Physical Exam: Vital Signs: Vital Signs Date Time Temp Pulse Resp B/P (MAP) Pulse Ox O2 Delivery O2 Flow Rate FiO2 07/07/21 07:34 97.4 52 18 110/54 (72) 95 Nasal Cannula 2.0 97.4 Physcial Exam: GEN: No apparent distress. HEENT: Normal cephalic, atraumatic, external auditory canals are patent EYES: Extraocular muscles are intact, pupil are equally round and reactive to light and accommodation MUSCULOSKELETAL: limited ROM ENDOCRINE: No thyromegaly was palpated LYMPHATICS: No cervical chain or axillary nodes were noted HEMATOPOIETIC: No bruising NECK: Supple, no JVD, no thyromegaly was noted LUNGS: Bibasilar crackles HEART: RRR muffled heart sounds ABDOMEN: Soft, nontender. Positive bowel sounds, no organomegaly, normal bowel sounds EXTREMITIES: Bilateral lower extremity edema NEUROLOGIC: AAO x1 SKIN: No ulcerations or rashes, good skin turgor, no jaundice VASCULAR: Good capillary refill, neurovascular bundle appears to be intact Labs: Labs: Laboratory Tests Test 07/06/21 11:28 07/06/21 12:50 07/06/21 16:27 07/06/21 21:33 Influenza Type A Antigen Negative (NEGATIVE) Influenza Type B Antigen Negative (NEGATIVE) SARS-CoV-2 RNA (LOVE) Negative (Negative) SARS-CoV-2 Antigen (Rapid) Negative (NEGATIVE) White Blood Count 6.1 x10^3/uL (4.0-11.0) Red Blood Count 3.33 x10^6/uL (3.50-5.40) Hemoglobin 10.1 g/dL (12.0-15.5) Hematocrit 32.2 % (36.0-47.0) Mean Corpuscular Volume 97 fL (79-100) Mean Corpuscular Hemoglobin 30 pg (25-35) Mean Corpuscular Hemoglobin Concent 32 g/dL (31-37) Red Cell Distribution Width 20.8 % (11.5-14.5) Platelet Count 129 x10^3/uL (140-400) Neutrophils (%) (Auto) 87 % (31-73) Lymphocytes (%) (Auto) 4 % (24-48) Monocytes (%) (Auto) 8 % (0-9) Eosinophils (%) (Auto) 0 % (0-3) Basophils (%) (Auto) 1 % (0-3) Neutrophils # (Auto) 5.3 x10^3/uL (1.8-7.7) Lymphocytes # (Auto) 0.3 x10^3/uL (1.0-4.8) Monocytes # (Auto) 0.5 x10^3/uL (0.0-1.1) Eosinophils # (Auto) 0.0 x10^3/uL (0.0-0.7) Basophils # (Auto) 0.0 x10^3/uL (0.0-0.2) Segmented Neutrophils % 88 % (35-66) Lymphocytes % 7 % (24-48) Monocytes % 5 % (0-10) Platelet Estimate Decreased (ADEQUATE) Poikilocytosis Slight Anisocytosis Mod Schistocytes Occ Sodium Level 143 mmol/L (136-145) Potassium Level 3.8 mmol/L (3.5-5.1) Chloride Level 103 mmol/L (98-107) Carbon Dioxide Level 27 mmol/L (21-32) Anion Gap 13 (6-14) Blood Urea Nitrogen 42 mg/dL (7-20) Creatinine 7.0 mg/dL (0.6-1.0) Estimated GFR (Cockcroft-Gault) 6.8 BUN/Creatinine Ratio 6 (6-20) Glucose Level 230 mg/dL (70-99) Lactic Acid Level 2.3 mmol/L (0.4-2.0) 1.0 mmol/L (0.4-2.0) Calcium Level 7.1 mg/dL (8.5-10.1) Total Bilirubin 0.9 mg/dL (0.2-1.0) Aspartate Amino Transf (AST/SGOT) 18 U/L (15-37) Alanine Aminotransferase (ALT/SGPT) 38 U/L (14-59) Alkaline Phosphatase 120 U/L (46-116) Troponin I High Sensitivity 80 ng/L (4-50) MD-Pko-V-Type Natriuretic Peptide > 27888 pg/mL (0-449) Total Protein 5.8 g/dL (6.4-8.2) Albumin 3.0 g/dL (3.4-5.0) Albumin/Globulin Ratio 1.1 (1.0-1.7) Glucose (Fingerstick) 198 mg/dL (70-99) Test 07/07/21 07:42 Glucose (Fingerstick) 99 mg/dL (70-99) Laboratory Tests Test 07/06/21 11:28 07/06/21 12:50 07/06/21 16:27 07/06/21 21:33 Influenza Type A Antigen Negative (NEGATIVE) Influenza Type B Antigen Negative (NEGATIVE) SARS-CoV-2 RNA (LOVE) Negative (Negative) SARS-CoV-2 Antigen (Rapid) Negative (NEGATIVE) White Blood Count 6.1 x10^3/uL (4.0-11.0) Red Blood Count 3.33 x10^6/uL (3.50-5.40) Hemoglobin 10.1 g/dL (12.0-15.5) Hematocrit 32.2 % (36.0-47.0) Mean Corpuscular Volume 97 fL (79-100) Mean Corpuscular Hemoglobin 30 pg (25-35) Mean Corpuscular Hemoglobin Concent 32 g/dL (31-37) Red Cell Distribution Width 20.8 % (11.5-14.5) Platelet Count 129 x10^3/uL (140-400) Neutrophils (%) (Auto) 87 % (31-73) Lymphocytes (%) (Auto) 4 % (24-48) Monocytes (%) (Auto) 8 % (0-9) Eosinophils (%) (Auto) 0 % (0-3) Basophils (%) (Auto) 1 % (0-3) Neutrophils # (Auto) 5.3 x10^3/uL (1.8-7.7) Lymphocytes # (Auto) 0.3 x10^3/uL (1.0-4.8) Monocytes # (Auto) 0.5 x10^3/uL (0.0-1.1) Eosinophils # (Auto) 0.0 x10^3/uL (0.0-0.7) Basophils # (Auto) 0.0 x10^3/uL (0.0-0.2) Segmented Neutrophils % 88 % (35-66) Lymphocytes % 7 % (24-48) Monocytes % 5 % (0-10) Platelet Estimate Decreased (ADEQUATE) Poikilocytosis Slight Anisocytosis Mod Schistocytes Occ Sodium Level 143 mmol/L (136-145) Potassium Level 3.8 mmol/L (3.5-5.1) Chloride Level 103 mmol/L (98-107) Carbon Dioxide Level 27 mmol/L (21-32) Anion Gap 13 (6-14) Blood Urea Nitrogen 42 mg/dL (7-20) Creatinine 7.0 mg/dL (0.6-1.0) Estimated GFR (Cockcroft-Gault) 6.8 BUN/Creatinine Ratio 6 (6-20) Glucose Level 230 mg/dL (70-99) Lactic Acid Level 2.3 mmol/L (0.4-2.0) 1.0 mmol/L (0.4-2.0) Calcium Level 7.1 mg/dL (8.5-10.1) Total Bilirubin 0.9 mg/dL (0.2-1.0) Aspartate Amino Transf (AST/SGOT) 18 U/L (15-37) Alanine Aminotransferase (ALT/SGPT) 38 U/L (14-59) Alkaline Phosphatase 120 U/L (46-116) Troponin I High Sensitivity 80 ng/L (4-50) DK-Esv-P-Type Natriuretic Peptide > 66156 pg/mL (0-449) Total Protein 5.8 g/dL (6.4-8.2) Albumin 3.0 g/dL (3.4-5.0) Albumin/Globulin Ratio 1.1 (1.0-1.7) Glucose (Fingerstick) 198 mg/dL (70-99) Test 07/07/21 07:42 Glucose (Fingerstick) 99 mg/dL (70-99) Assessment/Plan Assessment/Plan Weakness, knee swelling, adult failure to thrive, ESRD -Patient hereafter considerably new onset weakness when going to dialysis -Patient with baseline dementia. Difficult to obtain history -We will admit. -Patient is ESRD completely anuric per report -Nephrology consultation to resume dialysis -We will check knee x-ray -Basic work up to find any reversible causes -PT OT -Patient would greatly benefit from social work evaluation and likely placement long-term -Renal diet Justifications for Admission Other Justification Hyperkalemia, end-stage renal disease CHARLIE NESS MD Jul 07, 2021 10:06
--- NOTE | 2021-07-07 10:31 | RAD ---
EXAM: Right knee, 3 views. HISTORY: Swelling after fall. COMPARISON: 05/30/2021 FINDINGS: 3 views of the right knee are obtained. There is severe lateral compartment joint space martina rowing with subchondral sclerosis, subchondral cyst formation, and spurring. There is benign osseous excrescence along the medial femoral condyle likely due to prior medial collateral ligament injury. T here is mild genu valgus. There is a moderate to large joint effusion. There is enthesopathy along th e superior patella. There is soft tissue edema. There are vascular calcifications. IMPRESSION: 1. Severe lateral compartment osteoarthritis with slight genu valgus. 2. Large large joint effusion and diffuse knee soft tissue swelling. Electronically signed by: Talita Ann MD (07/07/2021 10:28 AM) [id number]
[2021-07-07 11:00] VITALS: BP 108/66
--- NOTE | 2021-07-07 12:06 | PDOC2 ---
CONSULT Date of Consult Date of Consult DATE: 07/07/21 TIME: 12:01 Reason for Consult Reason for Consult: ESRD Referring Physician Referring Physician: THI Identification/Chief Complaint Chief Complaint WEAKNESS, KNEE PAIN Source Source: Chart review History of Present Illness Reason for Visit: THIS IS AN 85 YR OLD PT WITH ESRD. ON OP HD ON MWF. HAS A LEFT ARM LOOP GRAFT FOR ACCESS. ADMITTED WITH WEAKNESS. UNABLE TO STAND UP TO GO TO OP HD DUE TO RIGHT KNEE PAIN. SHE WAS THEN TRANSFERRED HERE FOR EVALUATION. LABS ARE C/W ESRD Past Medical History Cardiovascular: HTN, Hyperlipidemia CENTRAL NERVOUS SYSTEM: Dementia GI: GERD Heme/Onc: Anemia NOS, Cancer Musculoskeletal: Osteoarthritis Renal/: Chronic renal failure Endocrine: Diabetes, Hyperparathyroidism Past Surgical History Past Surgical History: Mastectomy, Other Family History Family History: Family History Unknown Social History ALCOHOL: none Drugs: None Lives: with Family Current Problem List Problem List Problems Medical Problems: (1) Congestive heart failure Status: Acute (2) Renal failure Status: Acute (3) Weakness generalized Status: Acute Current Medications Current Medications Current Medications Sodium Chloride 1,000 ml @ 1,000 mls/hr Q1H PRN IV hypotension; Start 07/06/21 at 14:45; Stop 07/06/21 at 20:44; Status DC Diphenhydramine HCl (Benadryl) 25 mg 1X PRN PRN IV ITCHING; Start 07/06/21 at 14:45; Stop 07/07/21 at 14:44 Diphenhydramine HCl (Benadryl) 25 mg 1X PRN PRN IV ITCHING; Start 07/06/21 at 14:45; Stop 07/07/21 at 14:44 Sodium Chloride 1,000 ml @ 400 mls/hr Q2H30M PRN IV PATENCY; Start 07/06/21 at 14:45; Stop 07/07/21 at 02:44; Status DC Info (PHARMACY MONITORING -- do not chart) 1 each PRN DAILY PRN MC SEE COMMENTS; Start 07/06/21 at 14:45 Donepezil HCl (Aricept) 10 mg QHS PO Last administered on 07/07/21at 01:13; Start 07/06/21 at 23:30 Ferrous Sulfate (Feosol) 325 mg DAILY08 PO Last administered on 07/07/21at 08:00; Start 07/07/21 at 08:00 Pantoprazole Sodium (Protonix) 40 mg HS PO Last administered on 07/07/21at 01:13; Start 07/06/21 at 23:30 Ziprasidone (Geodon) 20 mg HS PO Last administered on 07/07/21at 01:13; Start 07/06/21 at 23:30 Active Scripts Active Reported Iron (Ferrous Sulfate) 325 Mg Tablet 1 Tab PO DAILY 30 Days Omeprazole 40 Mg Capsule.dr 40 Mg PO HS Ziprasidone Hcl 40 Mg Capsule 20 Mg PO HS Donepezil Hcl 5 Mg Tablet 10 Mg PO QHS Hydralazine Hcl 25 Mg Tablet 2 Tab PO BID Allergies Allergies: Coded Allergies: Sulfa (Sulfonamide Antibiotics) (Verified Allergy, Severe, RODRIGUEZ DUSTIN SYNDROME, 07/06/21) Penicillins (Verified Allergy, Intermediate, 07/06/21) propoxyphene (Verified Allergy, Intermediate, 07/06/21) ROS Review of System CONFUSED, UNABLE TO OBTAIN DUE TO DEMENTIA Physical Exam General: Alert, Cooperative, No acute distress HEENT: Atraumatic Lungs: Clear to auscultation Heart: Regular rate Abdomen: Normal bowel sounds, Soft, No tenderness Extremities: No clubbing Skin: No breakdown Neuro: Other (NO ASYMMETRY) Psych/Mental Status: Other (CONFUSION) MUSCULOSKELETAL: No joint tenderness, No deformity Vitals VITALS Vital Signs Date Time Temp Pulse Resp B/P (MAP) Pulse Ox O2 Delivery O2 Flow Rate FiO2 07/07/21 11:00 97.6 63 19 108/66 (80) 100 Nasal Cannula 2.0 97.6 Labs Labs Laboratory Tests Test 07/06/21 11:28 07/06/21 12:50 07/06/21 16:27 07/06/21 21:33 Influenza Type A Antigen Negative (NEGATIVE) Influenza Type B Antigen Negative (NEGATIVE) SARS-CoV-2 RNA (LOVE) Negative (Negative) SARS-CoV-2 Antigen (Rapid) Negative (NEGATIVE) White Blood Count 6.1 x10^3/uL (4.0-11.0) Red Blood Count 3.33 x10^6/uL (3.50-5.40) Hemoglobin 10.1 g/dL (12.0-15.5) Hematocrit 32.2 % (36.0-47.0) Mean Corpuscular Volume 97 fL (79-100) Mean Corpuscular Hemoglobin 30 pg (25-35) Mean Corpuscular Hemoglobin Concent 32 g/dL (31-37) Red Cell Distribution Width 20.8 % (11.5-14.5) Platelet Count 129 x10^3/uL (140-400) Neutrophils (%) (Auto) 87 % (31-73) Lymphocytes (%) (Auto) 4 % (24-48) Monocytes (%) (Auto) 8 % (0-9) Eosinophils (%) (Auto) 0 % (0-3) Basophils (%) (Auto) 1 % (0-3) Neutrophils # (Auto) 5.3 x10^3/uL (1.8-7.7) Lymphocytes # (Auto) 0.3 x10^3/uL (1.0-4.8) Monocytes # (Auto) 0.5 x10^3/uL (0.0-1.1) Eosinophils # (Auto) 0.0 x10^3/uL (0.0-0.7) Basophils # (Auto) 0.0 x10^3/uL (0.0-0.2) Segmented Neutrophils % 88 % (35-66) Lymphocytes % 7 % (24-48) Monocytes % 5 % (0-10) Platelet Estimate Decreased (ADEQUATE) Poikilocytosis Slight Anisocytosis Mod Schistocytes Occ Sodium Level 143 mmol/L (136-145) Potassium Level 3.8 mmol/L (3.5-5.1) Chloride Level 103 mmol/L (98-107) Carbon Dioxide Level 27 mmol/L (21-32) Anion Gap 13 (6-14) Blood Urea Nitrogen 42 mg/dL (7-20) Creatinine 7.0 mg/dL (0.6-1.0) Estimated GFR (Cockcroft-Gault) 6.8 BUN/Creatinine Ratio 6 (6-20) Glucose Level 230 mg/dL (70-99) Lactic Acid Level 2.3 mmol/L (0.4-2.0) 1.0 mmol/L (0.4-2.0) Calcium Level 7.1 mg/dL (8.5-10.1) Total Bilirubin 0.9 mg/dL (0.2-1.0) Aspartate Amino Transf (AST/SGOT) 18 U/L (15-37) Alanine Aminotransferase (ALT/SGPT) 38 U/L (14-59) Alkaline Phosphatase 120 U/L (46-116) Troponin I High Sensitivity 80 ng/L (4-50) FI-Xjd-G-Type Natriuretic Peptide > 05905 pg/mL (0-449) Total Protein 5.8 g/dL (6.4-8.2) Albumin 3.0 g/dL (3.4-5.0) Albumin/Globulin Ratio 1.1 (1.0-1.7) Glucose (Fingerstick) 198 mg/dL (70-99) Test 07/07/21 07:42 07/07/21 11:00 07/07/21 11:48 Glucose (Fingerstick) 99 mg/dL (70-99) 100 mg/dL (70-99) Troponin I High Sensitivity 75 ng/L (4-50) Laboratory Tests Test 07/06/21 12:50 07/06/21 16:27 07/06/21 21:33 07/07/21 07:42 White Blood Count 6.1 x10^3/uL (4.0-11.0) Red Blood Count 3.33 x10^6/uL (3.50-5.40) Hemoglobin 10.1 g/dL (12.0-15.5) Hematocrit 32.2 % (36.0-47.0) Mean Corpuscular Volume 97 fL (79-100) Mean Corpuscular Hemoglobin 30 pg (25-35) Mean Corpuscular Hemoglobin Concent 32 g/dL (31-37) Red Cell Distribution Width 20.8 % (11.5-14.5) Platelet Count 129 x10^3/uL (140-400) Neutrophils (%) (Auto) 87 % (31-73) Lymphocytes (%) (Auto) 4 % (24-48) Monocytes (%) (Auto) 8 % (0-9) Eosinophils (%) (Auto) 0 % (0-3) Basophils (%) (Auto) 1 % (0-3) Neutrophils # (Auto) 5.3 x10^3/uL (1.8-7.7) Lymphocytes # (Auto) 0.3 x10^3/uL (1.0-4.8) Monocytes # (Auto) 0.5 x10^3/uL (0.0-1.1) Eosinophils # (Auto) 0.0 x10^3/uL (0.0-0.7) Basophils # (Auto) 0.0 x10^3/uL (0.0-0.2) Segmented Neutrophils % 88 % (35-66) Lymphocytes % 7 % (24-48) Monocytes % 5 % (0-10) Platelet Estimate Decreased (ADEQUATE) Poikilocytosis Slight Anisocytosis Mod Schistocytes Occ Sodium Level 143 mmol/L (136-145) Potassium Level 3.8 mmol/L (3.5-5.1) Chloride Level 103 mmol/L (98-107) Carbon Dioxide Level 27 mmol/L (21-32) Anion Gap 13 (6-14) Blood Urea Nitrogen 42 mg/dL (7-20) Creatinine 7.0 mg/dL (0.6-1.0) Estimated GFR (Cockcroft-Gault) 6.8 BUN/Creatinine Ratio 6 (6-20) Glucose Level 230 mg/dL (70-99) Lactic Acid Level 2.3 mmol/L (0.4-2.0) 1.0 mmol/L (0.4-2.0) Calcium Level 7.1 mg/dL (8.5-10.1) Total Bilirubin 0.9 mg/dL (0.2-1.0) Aspartate Amino Transf (AST/SGOT) 18 U/L (15-37) Alanine Aminotransferase (ALT/SGPT) 38 U/L (14-59) Alkaline Phosphatase 120 U/L (46-116) Troponin I High Sensitivity 80 ng/L (4-50) DI-Wea-V-Type Natriuretic Peptide > 59655 pg/mL (0-449) Total Protein 5.8 g/dL (6.4-8.2) Albumin 3.0 g/dL (3.4-5.0) Albumin/Globulin Ratio 1.1 (1.0-1.7) Glucose (Fingerstick) 198 mg/dL (70-99) 99 mg/dL (70-99) Test 07/07/21 11:00 07/07/21 11:48 Troponin I High Sensitivity 75 ng/L (4-50) Glucose (Fingerstick) 100 mg/dL (70-99) Images Images Study: XR CHEST 1V Indication: Weakness. Comparison: 05/12/2021 Findings: Redemonstrated enlargement of the cardiomediastinal silhouette and vascular calcifications. Probable small left larger than right pleural effusions appearing slightly decreased from the comparison. Overlying opacification on the left. Less prono unced atelectasis at the right lung base from the prior. Opacities at the upper right lung on the comparison are not well seen on today's exam. Background interstitial prominence. No pneumothorax. Osteopenia. Impression: 1. Blunted costophrenic angles suggesting small left larger than right pleural effusions which were also present on the prior and appear slightly decreased. Ongoing opacification at the left lung base which could be passive atelectasis or an infectious process but follow-up is needed to confirm resolution. 2. Improved aeration of the right lung. Redemonstrated enlargement of the cardiomediastinal silhouette. Assessment/Plan Assessment/Plan IMP ESRD ANEMIA DM II HTN DEMENTIA RIGHT KNEE PAIN FAILURE TO THRIVE PLAN [facility] WHEN NEEDED HD MWF WILL FOLLOW MAURO CASEY MD Jul 07, 2021 12:06
[2021-07-07 14:45] VITALS: BP 100/52
[2021-07-07 19:45] VITALS: BP 126/62
[2021-07-07 22:56] VITALS: BP 117/55
[2021-07-08 01:35] VITALS: BP 121/56
[2021-07-08 06:19] VITALS: BP 136/69
[2021-07-08] MEDS: FERROUS SULFATE 325 MG TABLET. PO SCH (08:13)
--- NOTE | 2021-07-08 10:42 | PDOC ---
Renal-Progress Notes Subjective Notes Notes NO COMPLAINTS History of Present Illness Hx of present illness STABLE, PLEASANTLY CONFUSED Vitals Vitals Vital Signs Date Time Temp Pulse Resp B/P (MAP) Pulse Ox O2 Delivery O2 Flow Rate FiO2 07/08/21 07:41 Nasal Cannula 2.0 07/08/21 06:19 97.3 92 18 136/69 (91) 99 97.3 Weight Weight [ ] I.O. Intake and Output Intake and Output 07/08/21 07:00 Intake Total 420 ml Output Total 0 ml Balance 420 ml Intake Oral 420 ml Output Urine Total 0 ml Labs Labs Laboratory Tests Test 07/07/21 11:00 07/07/21 11:48 07/07/21 17:00 07/07/21 20:39 Troponin I High Sensitivity 75 ng/L (4-50) Glucose (Fingerstick) 100 mg/dL (70-99) 162 mg/dL (70-99) 136 mg/dL (70-99) Test 07/08/21 07:58 Glucose (Fingerstick) 113 mg/dL (70-99) Review of Systems Constitutional: yes: other (CONFUSED) Physical Exam General Appearance: no apparent distress Skin: warm Respiratory: decreased breath sounds Heart: S1S2 Abdomen: soft, bowel sounds present Genitourinary: bladder flat Extremities: pulses present Neurology: alert Musculoskeletal: Osteoarthritis Assessment Assessment IMP ESRD ANEMIA DM II HTN DEMENTIA RIGHT KNEE PAIN FAILURE TO THRIVE PLAN [facility] WHEN NEEDED HD TOMORROW WILL FOLLOW MAURO CASEY MD Jul 08, 2021 10:42
[2021-07-08 11:01] VITALS: BP 141/60
--- NOTE | 2021-07-08 11:37 | PDOC ---
[employer] PROGRESS NOTE Date of Service DOS: DATE: 07/08/21 TIME: 11:36 Chief Complaint Chief Complaint Assessment/Plan Weakness, knee swelling, adult failure to thrive, ESRD -Patient hereafter considerably new onset weakness when going to dialysis -Patient with baseline dementia. Difficult to obtain history -We will admit. -Patient is ESRD completely anuric per report -Nephrology consultation to resume dialysis -We will check knee x-ray -Basic work up to find any reversible causes -PT OT -Patient would greatly benefit from social work evaluation and likely placement long-term -Renal diet History of Present Illness History of Present Illness Patient unable to really provide much history and no family at bedside thus history from emergency room Patient is an 85-year old female that presents today via EMS with her chief complaint as right knee pain. Per [facility] staff in the emergency department EMS was told that the patient was getting ready to go to dialysis and was unable to get into the vehicle to take her to dialysis they were unsure if the patient was too weak or had right knee pain for that she was then they called 911 for have her transported here. Patient does have a history of moderate to severe dementia and is unable to give a great history, patient keeps repeating that she is not sure why she is here. Daughter was at the bedside during my evaluation daughter states that she normally has dialysis on Friday this week it was different due to the holidays she had dialysis on Friday and was supposed to have dialysis here on Friday, daughter states that she lives in the home she does have a teacher's aide and also has home health that helps take her to dialysis 3 days a week. Daughter states that the 16-year-old granddaughter was there over the last couple days as well in and out and says there is really nothing abnormal about patient's behavior last couple days. While reviewing past medical records it looks like in May 2021 patient was here for severe anemia and weakness and was found to have a hemoglobin of 6.6, daughter states that she was admitted for couple days then sent to [facility] for rehab, daughter states that patient did have a steroid injection of her right knee while at [facility] for right knee pain is only been in the home for the last 2 to 3 weeks since rehab. 07/08 Patient evaluated examined at bedside. She was resting in bed pleasantly c onfused. No complaints. Nephrology following for ESRD. PT OT ordered suspect patient will need placement. Continue current plan otherwise. Plan of care discussed bedside RN Vitals/I&O Vitals/I&O: Vital Signs Date Time Temp Pulse Resp B/P (MAP) Pulse Ox O2 Delivery O2 Flow Rate FiO2 07/08/21 11:01 97.9 93 20 141/60 (87) 97 Nasal Cannula 2.0 97.9 I & O 07/07/21 07/07/21 07/08/21 15:00 23:00 07:00 Intake Total 320 ml 50 ml 50 ml Output Total 0 ml Balance 320 ml 50 ml 50 ml Physical Exam General: Alert, Cooperative, No acute distress Heart: Regular rate Lungs: Wheezing Abdomen: Normal bowel sounds, Soft, No tenderness Extremities: No clubbing, No edema, Normal pulses Skin: No breakdown, No significant lesion Labs Labs: Laboratory Tests Test 07/07/21 11:48 07/07/21 17:00 07/07/21 20:39 07/08/21 07:58 Glucose (Fingerstick) 100 mg/dL (70-99) 162 mg/dL (70-99) 136 mg/dL (70-99) 113 mg/dL (70-99) Assessment and Plan Assessmemt and Plan Problems Medical Problems: (1) Congestive heart failure Status: Acute (2) Renal failure Status: Acute (3) Weakness generalized Status: Acute Comment Review of Relevant I have reviewed the following items rose (where applicable) has been applied. Justifications for Admission Other Justification Hyperkalemia, end-stage renal disease CHARLIE NESS MD Jul 08, 2021 11:37
[2021-07-08 15:00] VITALS: BP 100/49
[2021-07-08 19:42] VITALS: BP 101/57
[2021-07-08] MEDS: PANTOPRAZOLE 40 MG TABLET.DR. PO SCH (20:15)
[2021-07-08] MEDS: DONEPEZIL HCL 10 MG TABLET. PO SCH (20:15)
[2021-07-08] MEDS: ZIPRASIDONE 20 MG CAPSULE PO SCH (20:15)
--- NOTE | 2021-07-08 20:25 | NUR ---
REPORT GIVEN TO BRANDON ANDREWS AND PATIENT TRANSFERRED TO ROOM 504 PER BED AND OXYGEN WITH ALL BELONGINGS.
[2021-07-08 23:00] VITALS: BP 124/59
[2021-07-09 03:00] VITALS: BP 117/56
[2021-07-09] MEDS ORDERED: DIALYSIS PATIENT. MC PRN (09:15)
--- NOTE | 2021-07-09 11:20 | PDOC ---
Renal-Progress Notes Subjective Notes Notes NO NEW COMPLAINTS History of Present Illness Hx of present illness STABLE Vitals Vitals Vital Signs Date Time Temp Pulse Resp B/P (MAP) Pulse Ox O2 Delivery O2 Flow Rate FiO2 07/09/21 03:00 98.3 102 20 117/56 (76) 94 Nasal Cannula 2.0 98.3 Weight Weight [ ] I.O. Intake and Output Intake and Output 07/09/21 07:00 Intake Total 880 ml Output Total 0 ml Balance 880 ml Intake Oral 880 ml Output Urine Total 0 ml # Bowel Movements 3 Labs Labs Laboratory Tests Test 07/08/21 20:12 Glucose (Fingerstick) 120 mg/dL (70-99) Review of Systems Constitutional: yes: other (CONFUSED) Physical Exam General Appearance: no apparent distress Skin: warm Respiratory: decreased breath sounds Heart: S1S2 Abdomen: soft, bowel sounds present Genitourinary: bladder flat Extremities: pulses present Neurology: alert Musculoskeletal: Osteoarthritis Assessment Assessment IMP ESRD ANEMIA DM II HTN DEMENTIA RIGHT KNEE PAIN FAILURE TO THRIVE PLAN [facility] WHEN NEEDED HD TODAY UF TO [facility] WILL FOLLOW MAURO CASEY MD Jul 09, 2021 11:20
--- NOTE | 2021-07-09 11:36 | PDOC ---
[facility] PROGRESS NOTE Date of Service DOS: DATE: 07/09/21 TIME: 11:32 Chief Complaint Chief Complaint Assessment/Plan Weakness, knee swelling, adult failure to thrive, ESRD History of Present Illness History of Present Illness Patient unable to really provide much history and no family at bedside thus history from emergency room Patient is an 85-year old female that presents today via EMS with her chief complaint as right knee pain. Per [facility] staff in the emergency department EMS was told that the patient was getting ready to go to dialysis and was unable to get into the vehicle to take her to dialysis they were unsure if the patient was too weak or had right knee pain for that she was then they called 911 for have her transported here. Patient does have a history of moderate to severe dementia and is unable to give a great history, patient keeps repeating that she is not sure why she is here. 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 Daughter states that the 16-year-old granddaughter was there over the last couple days as well in and out and says there is really nothing abnormal about patient's behavior last couple days. While reviewing past medical records it looks like in May 2021 patient was here for severe anemia and weakness and was found to have a hemoglobin of 6.6, daughter states that she was admitted for couple days then sent to [facility] for rehab, daughter states that patient did have a steroid injection of her right knee while at [facility] for right knee pain is only been in the home for the last 2 to 3 weeks since rehab. 07/08 Patient evaluated examined at bedside. She was resting in bed pleasantly confused. No complaints. Nephrology following for ESRD. PT OT ordered suspect patient will need placement. Continue current plan otherwise. Plan of care discussed bedside RN 07/09 Patient seen and examined while in dialysis Patient is doing well and pleasantly confused ESRD is being followed by Nephrology Discussed with RN Chart Reviewed Vitals/I&O Vitals/I&O: Vital Signs Date Time Temp Pulse Resp B/P (MAP) Pulse Ox O2 Delivery O2 Flow Rate FiO2 07/09/21 03:00 98.3 102 20 117/56 (76) 94 Nasal Cannula 2.0 98.3 I & O 07/08/21 07/08/21 07/09/21 15:00 23:00 07:00 Intake Total 280 ml 600 ml Output Total 0 ml Balance 280 ml 600 ml Physical Exam General: Alert, Cooperative, No acute distress Heart: Regular rate Lungs: Wheezing Abdomen: Normal bowel sounds, Soft, No tenderness Extremities: No clubbing, No edema, Normal pulses Skin: No breakdown, No significant lesion Labs Labs: Laboratory Tests Test 07/08/21 20:12 Glucose (Fingerstick) 120 mg/dL (70-99) Assessment and Plan Assessmemt and Plan Problems Medical Problems: (1) Congestive heart failure Status: Acute (2) Renal failure Status: Acute (3) Weakness generalized Status: Acute Weakness Knee Swelling/pain Adult failure to thrive ESRD PLAN: Continue Dialysis per Nephrology PRN Pain Meds Continue PT/OT Trend Labs Home Meds DVT Prophylaxis Full Code Discharge disposition pending Comment Review of Relevant I have reviewed the following items rose (where applicable) has been applied. Justifications for Admission Other Justification Hyperkalemia, end-stage renal disease GRACIELA GAN III DO Jul 09, 2021 11:36
[2021-07-09 13:12] VITALS: BP 108/48
[2021-07-09] MEDS: FERROUS SULFATE 325 MG TABLET. PO SCH (14:46)
[2021-07-09 15:31] VITALS: BP 112/53
[2021-07-09 19:00] VITALS: BP 108/40
[2021-07-09] MEDS: PANTOPRAZOLE 40 MG TABLET.DR. PO SCH (21:52)
[2021-07-09] MEDS: ZIPRASIDONE 20 MG CAPSULE PO SCH (21:52)
[2021-07-09] MEDS: DONEPEZIL HCL 10 MG TABLET. PO SCH (21:52)
[2021-07-09 23:00] VITALS: BP 125/59
[2021-07-10 03:00] VITALS: BP 123/69
[2021-07-10 07:00] VITALS: BP 218/134
[2021-07-10 11:00] VITALS: BP 111/52
--- NOTE | 2021-07-10 11:24 | PDOC ---
Renal-Progress Notes Subjective Notes Notes NO NEW COMPLAINTS History of Present Illness Hx of present illness NO ACUTE CHANGES Vitals Vitals Vital Signs Date Time Temp Pulse Resp B/P (MAP) Pulse Ox O2 Delivery O2 Flow Rate FiO2 07/10/21 07:00 98.2 106 18 218/134 (162) 94 Nasal Cannula 2.0 98.2 Weight Weight [ ] I.O. Intake and Output Intake and Output 07/10/21 07:00 Intake Total 420 ml Balance 420 ml Intake Oral 420 ml # Voids 3 Labs Labs Laboratory Tests Test 07/09/21 13:10 07/09/21 16:19 07/09/21 19:39 07/10/21 08:28 Glucose (Fingerstick) 86 mg/dL (70-99) 172 mg/dL (70-99) 186 mg/dL (70-99) 135 mg/dL (70-99) Review of Systems Constitutional: yes: other (CONFUSED) Physical Exam General Appearance: no apparent distress Skin: warm Respiratory: decreased breath sounds Heart: S1S2 Abdomen: soft, bowel sounds present Genitourinary: bladder flat Extremities: pulses present Neurology: alert Musculoskeletal: Osteoarthritis Assessment Assessment IMP ESRD ANEMIA DM II HTN DEMENTIA RIGHT KNEE PAIN FAILURE TO THRIVE PLAN [facility] WHEN NEEDED HD TOMORROW PLACEMENT PENDING WILL FOLLOW MAURO CASEY MD Jul 10, 2021 11:24
--- NOTE | 2021-07-10 12:04 | SNU/HH DC ---
DISCHARGE ORDERS DISCHARGE INFORMATION: FINAL DIAGNOSIS Problems Medical Problems: (1) Congestive heart failure Status: Acute (2) Renal failure Status: Acute (3) Weakness generalized Status: Acute CONDITION ON DISCHARGE: Stable CODE STATUS: Code Status: Full RETIREMENT: SNF STAY <30 DAYS: Yes HOSPICE: HOSPICE: No HOSPICE EVAL & TREAT: No LTAC: ADMIT TO LTAC: No POST DISCHARGE ORDERS: ACTIVITY ORDERS: Activity as tolerated WEIGHT BEARING STATUS: As tolerated DIET AFTER DISCHARGE: Renal WOUND/INCISION CARE: No wound care needed CHECKS AFTER DISCHARGE: CHECKS AFTER DISCHARGE: Check blood press - daily, Check blood sugar, ac/hs, Check your Temp as needed FOLLOW-UP: LAB ORDERS FOR FOLLOW-UP: CMP, CBC, phosphorus levels TREATMENT/EQUIPMENT ORDERS: ADAPTIVE EQUIPMENT NEEDED: Walker RESPIRATORY EQUIPMENT NEEDED: Oxygen Physical Therapy For: Evalulation/Treatment Occupational Therapy For: Evaluation/Treatment Speech Language Pathology For: Evaluation/Treatment DISCHARGE MEDICATIONS: Home Meds Reported Medications Ferrous Sulfate (IRON) 325 Mg Tablet, 1 TAB PO DAILY for anemia for 30 Days, #30 TAB 0 Refills 05/14/20 Omeprazole (OMEPRAZOLE) 40 Mg Capsule.dr, 40 MG PO HS for GERD 05/12/20 Ziprasidone Hcl (ZIPRASIDONE HCL) 40 Mg Capsule, 20 MG PO HS for bipolar 05/12/20 Donepezil Hcl (DONEPEZIL HCL) 5 Mg Tablet, 10 MG PO QHS for 03/03/20 Hydralazine Hcl (HYDRALAZINE HCL) 25 Mg Tablet, 2 TAB PO BID for hypertension, #90 TAB 5 Refills 08/04/19 GRACIELA GAN III DO Jul 10, 2021 12:04
--- NOTE | 2021-07-10 12:18 | PDOC ---
[employer] [facility] PROGRESS NOTE Date of Service DOS: DATE: 07/10/21 TIME: 12:17 Chief Complaint Chief Complaint Assessment/Plan Weakness, knee swelling, adult failure to thrive, ESRD History of Present Illness History of Present Illness 07/10/2021 Patient seen exam Discussed with case management Discussed with RN I called her daughter in [facility] She would like us to consult orthopedics before the patient goes so I did Patient unable to really provide much history and no family at bedside thus history from emergency room Patient is an 85-year old female that presents today via EMS with her chief complaint as right knee pain. Per [facility] staff in the emergency department EMS was told that the patient was getting ready to go to dialysis and was unable to get into the vehicle to take her to dialysis they were unsure if the patient was too weak or had right knee pain for that she was then they called 911 for have her transported here. Patient does have a history of moderate to severe dementia and is unable to give a great history, patient keeps repeating that she is not sure why she is here. 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 Daughter states that the 16-year-old granddaughter was there over the last couple days as well in and out and says there is really nothing abnormal about patient's behavior last couple days. While reviewing past medical records it looks like in May 2021 patient was here for severe anemia and weakness and was found to have a hemoglobin of 6.6, daughter states that she was admitted for couple days then sent to [facility] for rehab, daughter states that patient did have a steroid injection of her right knee while at [facility] for right knee pain is only been in the home for the last 2 to 3 weeks since rehab. 07/08 Patient evaluated examined at bedside. She was resting in bed pleasantly confused. No complaints. Nephrology following for ESRD. PT OT ordered suspect patient will need placement. Continue current plan otherwise. Plan of care discussed bedside RN 07/09 Patient seen and examined while in dialysis Patient is doing well and pleasantly confused ESRD is being followed by Nephrology Discussed with RN Chart Reviewed Vitals/I&O Vitals/I&O: Vital Signs Date Time Temp Pulse Resp B/P (MAP) Pulse Ox O2 Delivery O2 Flow Rate FiO2 07/10/21 07:00 98.2 106 18 218/134 (162) 94 Nasal Cannula 2.0 98.2 I & O 07/09/21 07/09/21 07/10/21 15:00 23:00 07:00 Intake Total 0 ml 300 ml 120 ml Balance 0 ml 300 ml 120 ml Physical Exam General: Alert, Cooperative, No acute distress Heart: Regular rate Lungs: Wheezing Abdomen: Normal bowel sounds, Soft, No tenderness Extremities: No clubbing, No edema, Normal pulses Skin: No breakdown, No significant lesion Labs Labs: Laboratory Tests Test 07/09/21 13:10 07/09/21 16:19 07/09/21 19:39 07/10/21 08:28 Glucose (Fingerstick) 86 mg/dL (70-99) 172 mg/dL (70-99) 186 mg/dL (70-99) 135 mg/dL (70-99) Assessment and Plan Assessmemt and Plan Problems Medical Problems: (1) Congestive heart failure Status: Acute (2) Renal failure Status: Acute (3) Weakness generalized Status: Acute Weakness Knee Swelling/pain Adult failure to thrive ESRD PLAN: Consult orthopedics and then discharge this afternoon if orthopedics agrees For now continue the following; Continue Dialysis per Nephrology PRN Pain Meds Continue PT/OT Trend Labs Home Meds DVT Prophylaxis Full Code Discharge disposition is [facility] at [place] later today Comment Review of Relevant I have reviewed the following items rose (where applicable) has been applied. Justifications for Admission Other Justification Hyperkalemia, end-stage renal disease GRACIELA GAN III DO Jul 10, 2021 12:18
[2021-07-10] MEDS: FERROUS SULFATE 325 MG TABLET. PO SCH (13:03)
[2021-07-10] MEDS: cloNIDine HCL 0.2 MG TABLET PO SCH ×2 (13:03→22:00)
[2021-07-10 15:00] VITALS: BP 142/59
[2021-07-10 19:00] VITALS: BP 97/46
[2021-07-10] MEDS: ZIPRASIDONE 20 MG CAPSULE PO SCH (20:42)
[2021-07-10] MEDS: PANTOPRAZOLE 40 MG TABLET.DR. PO SCH (20:42)
[2021-07-10] MEDS: DONEPEZIL HCL 10 MG TABLET. PO SCH (20:42)
[2021-07-10 22:46] VITALS: BP 94/47
[2021-07-11 02:49] VITALS: BP 97/57
[2021-07-11] MEDS: cloNIDine HCL 0.2 MG TABLET PO SCH (05:07)
[2021-07-11 07:30] VITALS: BP 128/61
[2021-07-11] MEDS ORDERED: IV NORMAL SALINE 1000ML BAG 1,000 ML IV PRN ×2 (08:00)
[2021-07-11] MEDS: FERROUS SULFATE 325 MG TABLET. PO SCH (08:00)
[2021-07-11] MEDS ORDERED: DIALYSIS PATIENT. MC PRN (08:00)
--- NOTE | 2021-07-11 08:08 | PDOC ---
[employer] PROGRESS NOTE Date of Service DOS: DATE: 07/11/21 TIME: 08:04 Chief Complaint Chief Complaint Assessment/Plan Weakness, knee swelling, adult failure to thrive, ESRD History of Present Illness History of Present Illness 07/11/2021 Patient seen and examined, patient is pleasantly confused Discussed with RN Chart Reviewed Awaiting orthopedics consult with possible discharge to [facility] today, if orthopedics agrees 07/10/2021 Patient seen and examined Discussed with case management Discussed with RN I called her daughter in [facility] She would like us to consult orthopedics before the patient goes so I did Patient unable to really provide much history and no family at bedside thus history from emergency room Patient is an 85-year old female that presents today via EMS with her chief complaint as right knee pain. Per [facility] staff in the emergency department EMS was told that the patient was getting ready to go to dialysis and was unable to get into the vehicle to take her to dialysis they were unsure if the patient was too weak or had right knee pain for that she was then they called 911 for have her transported here. Patient does have a history of moderate to severe dementia and is unable to give a great history, patient keeps repeating that she is not sure why she is here. 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 Daughter states that the 16-year-old granddaughter was there over the last couple days as well in and out and says there is really nothing abnormal about patient's behavior last couple days. While reviewing past medical records it looks like in May 2021 patient was here for severe anemia and weakness and was found to have a hemoglobin of 6.6, daughter states that she was admitted for couple days then sent to [facility] for rehab, daughter states that patient did have a steroid injection of her right knee while at [facility] for right knee pain is only been in the home for the l ast 2 to 3 weeks since rehab. 07/08 Patient evaluated examined at bedside. She was resting in bed pleasantly confused. No complaints. Nephrology following for ESRD. PT OT ordered suspect patient will need placement. Continue current plan otherwise. Plan of care discussed bedside RN 07/09 Patient seen and examined while in dialysis Patient is doing well and pleasantly confused ESRD is being followed by Nephrology Discussed with RN Chart Reviewed Vitals/I&O Vitals/I&O: Vital Signs Date Time Temp Pulse Resp B/P (MAP) Pulse Ox O2 Delivery O2 Flow Rate FiO2 07/11/21 05:07 68 98/59 07/11/21 02:49 97.6 17 96 Room Air 97.6 07/10/21 19:46 2.0 I & O 07/10/21 07/10/21 07/11/21 15:00 23:00 07:00 Output Total 250 ml 250 ml Balance -250 ml -250 ml Physical Exam General: Alert, Cooperative, No acute distress Heart: Regular rate Lungs: Wheezing Abdomen: Normal bowel sounds, Soft, No tenderness Extremities: No clubbing, No edema, Normal pulses Skin: No breakdown, No significant lesion Labs Labs: Laboratory Tests Test 07/10/21 08:28 07/10/21 16:49 07/10/21 18:56 07/11/21 07:52 Glucose (Fingerstick) 135 mg/dL (70-99) 129 mg/dL (70-99) 178 mg/dL (70-99) 97 mg/dL (70-99) Assessment and Plan Assessmemt and Plan Problems Medical Problems: (1) Congestive heart failure Status: Acute (2) Renal failure Status: Acute (3) Weakness generalized Status: Acute Weakness Knee Swelling/pain Adult failure to thrive ESRD PLAN: Consult orthopedics and then discharge this afternoon if orthopedics agrees Appreciated orthopedics input For now continue the following; Continue Dialysis per Nephrology PRN Pain Meds Continue PT/OT Trend Labs Home Meds DVT Prophylaxis Full Code Probable discharge to [facility] at [place] later today Comment Review of Relevant I have reviewed the following items rose (where applicable) has been applied. Medications: Current Medications Medications (Trade) Dose Ordered Sig/Diana Route PRN Reason Start Time Stop Time Status Last Admin Dose Admin Clonidine HCl (Catapres) 0.2 mg Q8HRS PO 07/10/21 12:00 07/10/21 13:03 Justifications for Admission Other Justification Hyperkalemia, end-stage renal disease CASTLE,NIAL K III DO Jul 11, 2021 08:08
--- NOTE | 2021-07-11 10:58 | PDOC ---
Renal-Progress Notes Subjective Notes Notes NO NEW COMPLAINTS History of Present Illness Hx of present illness STABLE Vitals Vitals Vital Signs Date Time Temp Pulse Resp B/P (MAP) Pulse Ox O2 Delivery O2 Flow Rate FiO2 07/11/21 07:30 97.4 100 16 128/61 (83) 96 Room Air 97.4 07/10/21 19:46 2.0 Weight Weight [ ] I.O. Intake and Output Intake and Output 07/11/21 07:00 Output Total 500 ml Balance -500 ml Output Urine Total 500 ml # Voids 5 Labs Labs Laboratory Tests Test 07/10/21 16:49 07/10/21 18:56 07/11/21 07:52 Glucose (Fingerstick) 129 mg/dL (70-99) 178 mg/dL (70-99) 97 mg/dL (70-99) Review of Systems Constitutional: yes: other (CONFUSED) Physical Exam General Appearance: no apparent distress Skin: warm Respiratory: decreased breath sounds Heart: S1S2 Abdomen: soft, bowel sounds present Genitourinary: bladder flat Extremities: pulses present Neurology: alert Musculoskeletal: Osteoarthritis Assessment Assessment IMP ESRD ANEMIA DM II HTN DEMENTIA RIGHT KNEE PAIN FAILURE TO THRIVE PLAN [facility] WHEN NEEDED HD TODAY UF TO TW PLACEMENT PENDING ORTHO TO SEE WILL FOLLOW MAURO CASEY MD Jul 11, 2021 10:58
[2021-07-11] MEDS ORDERED: BUPIVACAINE MPF 0.25% 10 ML VIAL. IJ ONE (11:30)
[2021-07-11] MEDS ORDERED: TRIAMCINOLONE ACETONIDE 40 MG/ML VIAL. MC ONE (11:30)
--- NOTE | 2021-07-11 13:16 | CONS ---
DATE OF CONSULTATION: 07/10/2021 REASON FOR CONSULTATION: Right knee pain. BRIEF HISTORY: The patient is a poor historian, unable to give me any type of significant history due to her confusion tonight. She has had no recent falls; however, according to the staff and according to the documentation. She is unwilling to initially bear weight on the right knee secondary to pain. At this point; however, according to her today, she says that this is improved. I have talked with the nursing staff tonight and they also say that it is improved as far as her overall pain control. Past medical and surgical history, medications, allergies, review of systems are all reviewed and is available on the chart. PHYSICAL EXAMINATION: Today shows mild to moderate knee joint effusion, which according to the staff has significantly improved. Her range of motion is 0 to approximately 90 degrees of flexion. There is no significant pain throughout the arc of motion. Discomfort is noted. There is no instability in the varus, valgus or AP plane. There was proper tracking of the patellofemoral joint. No significant apprehension of the patellofemoral joint. No atrophy of musculature, right versus left and the distal neurovascular status is fully intact. IMAGING: X-rays of her right knee done on 07/07/2021 were reviewed and show significant degenerative joint disease, tricompartmental right knee. IMPRESSION: Degenerative joint disease, right knee. PLAN: At this time, she would be a very good candidate for intra-articular injection of dilute steroid or hyaluronic acid; however, due to her diabetic situation being 85 years of age as well, I will consult with the primary attending to see if injection of steroid is possible for her. Secondary to the diabetes, I am not sure that is the best situation. What would be best is a hyaluronic acid injection in the outpatient setting. However, I will wait to be contacted to make a decision on one injection or the other. DONNA DR: Giselle TID: [id number]
[2021-07-11 15:00] VITALS: BP 146/80
--- NOTE | 2021-07-11 16:00 | NUR ---
Patient discharged for transfer to [facility].
== END 2021-07-11 16:00 | DRG 291 ==
LOC: ER 11:08 → 6 SOUTH 14:04 → ER 14:04 → 6 SOUTH 14:04 → 5 NORTH 07-08 20:25
PROVIDERS: ADMIT Student in an Organized Health Care Education/Training Program; ATTEND Student in an Organized Health Care Education/Training Program
PROC: 5A1D70Z Performance of Urinary Filtration, Intermittent, Less than 6 Hours Per Day (ICD-10-PCS; 2021-07-06)
PROC: 5A1D70Z Performance of Urinary Filtration, Intermittent, Less than 6 Hours Per Day (ICD-10-PCS; 2021-07-09)
PROC: 5A1D70Z Performance of Urinary Filtration, Intermittent, Less than 6 Hours Per Day (ICD-10-PCS; principal; 2021-07-11)
DX: I13.2 Hypertensive heart and chronic kidney disease with heart failure and with stage 5 chronic kidney disease, or end stage renal disease (principal); N18.6 End stage renal disease; I50.43 Acute on chronic combined systolic (congestive) and diastolic (congestive) heart failure; E11.22 Type 2 diabetes mellitus with diabetic chronic kidney disease; Z99.2 Dependence on renal dialysis; Z79.4 Long term (current) use of insulin; D64.9 Anemia, unspecified; E78.5 Hyperlipidemia, unspecified; F03.90 Unspecified dementia, unspecified severity, without behavioral disturbance, psychotic disturbance, mood disturbance, and anxiety; M17.11 Unilateral primary osteoarthritis, right knee; R62.7 Adult failure to thrive; Z83.3 Family history of diabetes mellitus; Z85.3 Personal history of malignant neoplasm of breast; Z90.11 Acquired absence of right breast and nipple; E21.3 Hyperparathyroidism, unspecified; K21.9 Gastro-esophageal reflux disease without esophagitis; M19.90 Unspecified osteoarthritis, unspecified site; Z88.0 Allergy status to penicillin; Z88.2 Allergy status to sulfonamides
CPT/HCPCS: 36415; 71045; 73562; 80053; 82962; 83605; 83880; 84484; 85007; 85025; 87426; 87804; 93005; U0003; U0005; 97530-GP; 97535-GO; 99285-25; G0378